=== PATIENT | female | born 1955 | race Caucasian/White ===

== ENCOUNTER → 2019-01-04 | Outpatient (CLI) | payer BC | LOC: LABWHC1 14:11 | PROVIDERS: ATTEND Anesthesiology | DX: Z01.818 Encounter for other preprocedural examination (principal) | CPT/HCPCS: 36415; 93005 ==

== ENCOUNTER → 2019-01-14 | Outpatient (CLI) | payer BC ==
--- NOTE | 2019-01-14 14:26 | CT ---
EXAMINATION TYPE: CT abdomen pelvis wo con DATE OF EXAM: 01/14/2019 COMPARISON: None INDICATION: Abdominal and pelvic pain DLP: 1075.5 mGycm, Automated exposure control for dose reduction was used. CONTRAST: 0 mL of Isovue 300. Study performed without Oral Contrast TECHNIQUE: Axial images were obtained from above the diaphragm to the pubic rami in the axial plane a t 5 mm thick sections. Reconstructed images are reviewed on the computer in the coronal plane. FINDINGS: Limited CT sections are obtained the lung bases. The lung bases are clear. CT ABDOMEN: Liver: Normal, curvilinear collection which appears hyperintense in relation to the liver adjacent to the posterior right lobe liver may be the gallbladder. Spleen: Normal Pancreas: Mild atrophy Adrenal glands: The adrenal glands are normal. Gallbladder: There appears to be the gallbladder is hyperdense. Calcium and contrast could be conside red within the gallbladder. This could be related to biliary stasis.. Kidneys: No masses are evident. No hydronephrosis is present. No cysts are present. No renal stone s are identified. Aorta: Vascular calcification is within the aorta. Inferior vena cava: Normal. CT PELVIS: Loops of bowel within the abdomen and pelvis are normal. There are loops of bowel which are incom pletely distended or lack oral contrast limiting their evaluation. Appendix: Not identified. No suspicious tubular structures or inflammatory changes are identified. Urinary bladder: Decompressed with limited evaluation. Genitourinary structures: Uterus and ovaries are not identified. Osseous structures: No suspicious lytic or sclerotic lesions. Degenerative disc changes are present L 5-S1. IMPRESSIONS: 1. Gallbladder appears hyperdense which could be related to biliary sludge or stasis.
== END ==
LOC: RADCTMAIN 11:07
PROVIDERS: ATTEND Internal Medicine
DX: R10.9 Unspecified abdominal pain (principal)
CPT/HCPCS: 74176

== ENCOUNTER → 2019-01-24 | Outpatient (CLI) | payer BC ==
--- NOTE | 2019-01-24 16:30 | US ---
EXAMINATION TYPE: US abdomen complete DATE OF EXAM: 01/24/2019 COMPARISON: CT 11/13/2019 CLINICAL HISTORY: R10.9 Unspecified abdominal pain. ABD pain, more on right side, recent abnormal CT EXAM MEASUREMENTS: Liver Length: 12.6 cm Gallbladder Wall: 0.2 cm CBD: 0.4 cm Spleen: 12.1 cm Right Kidney: 8.9 x 3.8 x 3.9 cm Left Kidney: 9.9 x 4.6 x 4.1 cm Pancreas: Hyperechoic, tail obscured by overlying bowel gas Liver: Hyperechoic, solid lesion right lobe anterior to right kidney= 5.3 x 4.2 x 5.2 cm Gallbladder: Lumen filled with gallstones vs. sludge/ wall not thickened Evidence for sonographic Garber's sign: Yes CBD: wnl Spleen: wnl Right Kidney: Small in size, cortical thinning Left Kidney: wnl Upper IVC: wnl Abd Aorta: Proximal and distal portions appeared wnl, mid portion gassed out IMPRESSION: 1. Irregular hyperdense mass area within the right lobe liver not identified [facility] the [facility] with contrast or MRI with contrast to evaluate suspicious mass by ultrasound with in the liver. 2. Multiple small gallstones within the gallbladder.
== END ==
LOC: RADUSWWP 08:51
PROVIDERS: ATTEND Surgery
DX: K80.20 Calculus of gallbladder without cholecystitis without obstruction (principal); R16.0 Hepatomegaly, not elsewhere classified
CPT/HCPCS: 76700

== ENCOUNTER 2019-09-12 16:42 | Inpatient (IN) | payer BC, MEDICARE ==
[2019-09-12] MEDS ORDERED: SODIUM CHLORIDE 0.9% 1,000 ML IV STA (17:20)
--- NOTE | 2019-09-12 17:34 | ED ---
URI HPI - General Chief Complaint: Upper Respiratory Infection Stated Complaint: sameer, coughing Time Seen by Provider: 09/12/19 17:19 Source: patient, RN notes reviewed, old records reviewed Mode of arrival: ambulatory Limitations: no limitations - History of Present Illness Initial Comments: This is a 64-year-old female the ER today. This patient resents today for evaluation regards to cough congestion fever chills not feeling well. Patient is history of anxiety DVT and multiple surgeries no recent travel history no known sick contacts. In that denies a documented fever. No pain MD Complaint: fever, cough, sore throat, nasal congestion -: days(s) Severity: mild Severity scale (1-10): 3 Consistency: intermittent Improves With: nothing Worsens With: nothing Associated Symptoms: chills, myalgias, cough, shortness of breath, nausea Treatments Prior to Arrival: none - Related Data Home Medications Medication Instructions Recorded Confirmed ALPRAZolam [Xanax] 1 mg PO DAILY 09/25/17 09/12/19 Estradiol [Estrace] 0.5 mg PO DAILY 09/25/17 09/12/19 Metoprolol Succinate (ER) [Toprol 25 mg PO DAILY 09/25/17 09/12/19 Xl] Cyanocobalamin (Vitamin B-12) 1,000 mcg PO DAILY 09/12/19 09/12/19 [Vitamin B-12] Sertraline HCl [Zoloft] 100 mg PO DAILY 09/12/19 09/12/19 Allergies Allergy/AdvReac Type Severity Reaction Status Date / Time No Known Allergies Allergy Verified 09/12/19 17:22 Review of Systems ROS Statement: Those systems with pertinent positive or pertinent negative responses have been documented in the HPI. ROS Other: All systems not noted in ROS Statement are negative. Past Medical History Past Medical History: Deep Vein Thrombosis (DVT) Additional Past Medical History / Comment(s): pvd anxiety/ panic attacks ,shingles , thin skin,pernicus anemia, History of Any Multi-Drug Resistant Organisms: MRSA Date of last positivie culture/infection: 2000 MDRO Source:: wound Past Surgical History: Appendectomy, Bariatric Surgery, Cholecystectomy, Hysterectomy Additional Past Surgical History / Comment(s): fem/pop bypass/stents lulu, gastric bypass in 2000, lt shoulder sx, rt knee arthrocopy,lt breast biopsy-neg, colonoscopy-neg Past Anesthesia/Blood Transfusion Reactions: No Reported Reaction Past Psychological History: Anxiety Smoking Status: Former smoker Past Alcohol Use History: Rare Past Drug Use History: None Reported - Past Family History Father Family Medical History: CVA/TIA Additional Family Medical History / Comment(s): STROKE AT AGE 50 Mother Family Medical History: No Reported History General Exam Limitations: no limitations General appearance: alert, in no apparent distress Head exam: Present: atraumatic, normocephalic, normal inspection Eye exam: Present: normal appearance, EOMI. Absent: scleral icterus, conjunctival injection, periorbital swelling ENT exam: Present: normal exam, mucous membranes moist Neck exam: Present: normal inspection. Absent: tenderness, meningismus, lymphadenopathy Respiratory exam: Present: normal lung sounds bilaterally. Absent: respiratory distress, wheezes, rales, rhonchi, stridor Cardiovascular Exam: Present: regular rate, normal rhythm, normal heart sounds. Absent: systolic murmur, diastolic murmur, rubs, gallop, clicks GI/Abdominal exam: Present: soft, normal bowel sounds. Absent: distended, tenderness, guarding, rebound, rigid Extremities exam: Present: normal inspection, full ROM, normal capillary refill. Absent: tenderness, pedal edema, joint swelling, calf tenderness Back exam: Present: normal inspection Neurological exam: Present: alert, oriented X3, CN II-XII intact Psychiatric exam: Present: normal affect, normal mood Skin exam: Present: warm, dry, intact, normal color. Absent: rash Course Vital Signs 09/12/19 09/12/19 09/12/19 16:47 18:00 18:30 Temperature 97.5 F L Pulse Rate 83 71 64 Respiratory 18 17 27 H Rate Blood Pressure 148/81 186/100 192/144 O2 Sat by Pulse 97 Oximetry Medical Decision Making - Medical Decision Making 64 female the ER for evaluation presents for evaluation of weakness chills and cough difficulty catching her breath. Patient is positive pneumonia, will admit for IV antibiotics - Lab Data Result diagrams: 09/12/19 17:40 09/12/19 17:40 Lab Results 09/12/19 09/12/19 09/12/19 Range/Units 17:40 17:40 17:40 WBC 4.3 (3.8-10.6) k/uL RBC 4.37 (3.80-5.40) m/uL Hgb 11.2 L (11.4-16.0) gm/dL Hct 36.1 (34.0-46.0) % MCV 82.6 (80.0-100.0) fL MCH 25.7 (25.0-35.0) pg MCHC 31.1 (31.0-37.0) g/dL RDW 15.7 H (11.5-15.5) % Plt Count 175 (150-450) k/uL Neutrophils % 71 % Lymphocytes % 19 % Monocytes % 6 % Eosinophils % 2 % Basophils % 0 % Neutrophils # 3.1 (1.3-7.7) k/uL Lymphocytes # 0.8 L (1.0-4.8) k/uL Monocytes # 0.2 (0-1.0) k/uL Eosinophils # 0.1 (0-0.7) k/uL Basophils # 0.0 (0-0.2) k/uL Hypochromasia Slight PT (9.0-12.0) sec INR (<1.2) APTT (22.0-30.0) sec Sodium 137 (137-145) mmol/L Potassium 4.2 (3.5-5.1) mmol/L Chloride 103 (98-107) mmol/L Carbon Dioxide 24 (22-30) mmol/L Anion Gap 10 mmol/L BUN 16 (7-17) mg/dL Creatinine 1.03 (0.52-1.04) mg/dL Est GFR (CKD-EPI)AfAm 66 (>60 ml/min/1.73 sqM) Est GFR (CKD-EPI)NonAf 57 (>60 ml/min/1.73 sqM) Glucose 111 H (74-99) mg/dL Calcium 9.0 (8.4-10.2) mg/dL Magnesium 2.1 (1.6-2.3) mg/dL Total Bilirubin 0.7 (0.2-1.3) mg/dL AST 34 (14-36) U/L ALT 22 (9-52) U/L Alkaline Phosphatase 106 (38-126) U/L Creatine Kinase 36 (30-135) U/L Troponin I (0.000-0.034) ng/mL NT-Pro-B Natriuret Pep 548 pg/mL Total Protein 7.2 (6.3-8.2) g/dL Albumin 4.0 (3.5-5.0) g/dL Urine Color Urine Appearance (Clear) Urine pH (5.0-8.0) Ur Specific [place] (1.001-1.035) Urine Protein (Negative) Urine Glucose (UA) (Negative) Urine Ketones (Negative) Urine Blood (Negative) Urine Nitrite (Negative) Urine Bilirubin (Negative) Urine Urobilinogen (<2.0) mg/dL Ur Leukocyte Esterase (Negative) Urine WBC (0-5) /hpf Ur Squamous Epith Cells (0-4) /hpf Urine Bacteria (None) /hpf Hyaline Casts (0-2) /lpf Urine Mucus (None) /hpf Influenza Type A RNA (Not Detectd) Influenza Type B (PCR) (Not Detectd) 09/12/19 09/12/19 09/12/19 Range/Units 17:40 17:40 17:40 WBC (3.8-10.6) k/uL RBC (3.80-5.40) m/uL Hgb (11.4-16.0) gm/dL Hct (34.0-46.0) % MCV (80.0-100.0) fL MCH (25.0-35.0) pg MCHC (31.0-37.0) g/dL RDW (11.5-15.5) % Plt Count (150-450) k/uL Neutrophils % % Lymphocytes % % Monocytes % % Eosinophils % % Basophils % % Neutrophils # (1.3-7.7) k/uL Lymphocytes # (1.0-4.8) k/uL Monocytes # (0-1.0) k/uL Eosinophils # (0-0.7) k/uL Basophils # (0-0.2) k/uL Hypochromasia PT 9.3 (9.0-12.0) sec INR 0.8 (<1.2) APTT 23.8 (22.0-30.0) sec Sodium (137-145) mmol/L Potassium (3.5-5.1) mmol/L Chloride (98-107) mmol/L Carbon Dioxide (22-30) mmol/L Anion Gap mmol/L BUN (7-17) mg/dL Creatinine (0.52-1.04) mg/dL Est GFR (CKD-EPI)AfAm (>60 ml/min/1.73 sqM) Est GFR (CKD-EPI)NonAf (>60 ml/min/1.73 sqM) Glucose (74-99) mg/dL Calcium (8.4-10.2) mg/dL Magnesium (1.6-2.3) mg/dL Total Bilirubin (0.2-1.3) mg/dL AST (14-36) U/L ALT (9-52) U/L Alkaline Phosphatase (38-126) U/L Creatine Kinase (30-135) U/L Troponin I <0.012 (0.000-0.034) ng/mL NT-Pro-B Natriuret Pep pg/mL Total Protein (6.3-8.2) g/dL Albumin (3.5-5.0) g/dL Urine Color Yellow Urine Appearance Cloudy H (Clear) Urine pH 5.5 (5.0-8.0) Ur Specific [place] 1.028 (1.001-1.035) Urine Protein 1+ H (Negative) Urine Glucose (UA) Negative (Negative) Urine Ketones 1+ H (Negative) Urine Blood Negative (Negative) Urine Nitrite Negative (Negative) Urine Bilirubin Negative (Negative) Urine Urobilinogen 3.0 (<2.0) mg/dL Ur Leukocyte Esterase Trace H (Negative) Urine WBC 1 (0-5) /hpf Ur Squamous Epith Cells 27 H (0-4) /hpf Urine Bacteria Few H (None) /hpf Hyaline Casts 10 H (0-2) /lpf Urine Mucus Many H (None) /hpf Influenza Type A RNA (Not Detectd) Influenza Type B (PCR) (Not Detectd) 09/12/19 Range/Units 17:40 WBC (3.8-10.6) k/uL RBC (3.80-5.40) m/uL Hgb (11.4-16.0) gm/dL Hct (34.0-46.0) % MCV (80.0-100.0) fL MCH (25.0-35.0) pg MCHC (31.0-37.0) g/dL RDW (11.5-15.5) % Plt Count (150-450) k/uL Neutrophils % % Lymphocytes % % Monocytes % % Eosinophils % % Basophils % % Neutrophils # (1.3-7.7) k/uL Lymphocytes # (1.0-4.8) k/uL Monocytes # (0-1.0) k/uL Eosinophils # (0-0.7) k/uL Basophils # (0-0.2) k/uL Hypochromasia PT (9.0-12.0) sec INR (<1.2) APTT (22.0-30.0) sec Sodium (137-145) mmol/L Potassium (3.5-5.1) mmol/L Chloride (98-107) mmol/L Carbon Dioxide (22-30) mmol/L Anion Gap mmol/L BUN (7-17) mg/dL Creatinine (0.52-1.04) mg/dL Est GFR (CKD-EPI)AfAm (>60 ml/min/1.73 sqM) Est GFR (CKD-EPI)NonAf (>60 ml/min/1.73 sqM) Glucose (74-99) mg/dL Calcium (8.4-10.2) mg/dL Magnesium (1.6-2.3) mg/dL Total Bilirubin (0.2-1.3) mg/dL AST (14-36) U/L ALT (9-52) U/L Alkaline Phosphatase (38-126) U/L Creatine Kinase (30-135) U/L Troponin I (0.000-0.034) ng/mL NT-Pro-B Natriuret Pep pg/mL Total Protein (6.3-8.2) g/dL Albumin (3.5-5.0) g/dL Urine Color Urine Appearance (Clear) Urine pH (5.0-8.0) Ur Specific [place] (1.001-1.035) Urine Protein (Negative) Urine Glucose (UA) (Negative) Urine Ketones (Negative) Urine Blood (Negative) Urine Nitrite (Negative) Urine Bilirubin (Negative) Urine Urobilinogen (<2.0) mg/dL Ur Leukocyte Esterase (Negative) Urine WBC (0-5) /hpf Ur Squamous Epith Cells (0-4) /hpf Urine Bacteria (None) /hpf Hyaline Casts (0-2) /lpf Urine Mucus (None) /hpf Influenza Type A RNA Not Detected (Not Detectd) Influenza Type B (PCR) Not Detected (Not Detectd) - EKG Data -: EKG Interpreted by Me (EKG shows sinus rhythm rate of 76, UT 142, QRS 66, QTc 452) - Radiology Data Radiology results: report reviewed (Chest x-rays positive for right upper lobe pneumonia), image reviewed Disposition Clinical Impression: Community acquired pneumonia Disposition: ADMITTED IP TO THIS [facility] Condition: Good Is patient prescribed a controlled substance at d/c from ED?: No Referrals: Parmjit Roblero MD [Primary Care Provider] - 1-2 days
[2019-09-12 17:59] LABS: Basophils % (A) 0 %; Eosinophils # (A) 0.1 k/uL (0-0.7); Eosinophils % (A) 2 %; HCT 36.1 % (34.0-46.0); HGB 11.2 gm/dL (11.4-16.0); Hypochromasia Slight; Lymphocytes # (A) 0.8 k/uL (1.0-4.8); Lymphocytes % (A) 19 %; MCH 25.7 pg (25.0-35.0); MCHC 31.1 g/dL (31.0-37.0); MCV 82.6 fL (80.0-100.0); Mean Platelet Volume 7.4; Monocytes # (A) 0.2 k/uL (0-1.0); Monocytes % (A) 6 %; Neutrophils # (A) 3.1 k/uL (1.3-7.7); Neutrophils % (A) 71 %; Platelet Count 175 k/uL (150-450); RBC 4.37 m/uL (3.80-5.40); RDW 15.7 % (11.5-15.5); WBC 4.3 k/uL (3.8-10.6)
--- NOTE | 2019-09-12 18:03 | XR ---
EXAMINATION TYPE: XR chest 2V DATE OF EXAM: 09/12/2019 COMPARISON: 12/25/2014 HISTORY: Chest pain TECHNIQUE: Frontal and lateral views of the chest are obtained. FINDINGS: There is some patchy airspace infiltrate anterior segment right upper lobe. The other lung valadez are clear. Heart size is normal. There are chest leads. Bony thorax is intact. IMPRESSION: Right upper lobe pneumonia is new compared to old exam.
[2019-09-12 18:05] LABS: Appearance,Urine Cloudy (Clear); Bacteria,Urine Few /hpf; Bilirubin,Urine Negative (Negative); Blood,Urine Negative (Negative); Color,Urine Yellow; Glucose,Urine (UA) Negative (Negative); Hyaline Casts,Urine 10 /lpf (0-2); Ketones,Urine 1+ (Negative); Leukocyte Esterase,Urine Trace (Negative); Mucus,Urine Many /hpf; Nitrite,Urine Negative (Negative); PH, Urine 5.5 (5.0-8.0); Protein,Urine 1+ (Negative); Specific Gravity,Urine 1.028 (1.001-1.035); Squamous Epithelial Cell,Urine 27 /hpf (0-4)
[2019-09-12 18:09] LABS: Total Bilirubin 0.7 mg/dL (0.2-1.3); Total Protein 7.2 g/dL (6.3-8.2)
[2019-09-12 18:10] LABS: Magnesium 2.1 mg/dL (1.6-2.3); Potassium 4.2 mmol/L (3.5-5.1)
[2019-09-12 18:15] LABS: INR 0.8 (<1.2); Partial Thromboplastin Time 23.8 sec (22.0-30.0); Prothrombin Time 9.3 sec (9.0-12.0)
[2019-09-12] MEDS ORDERED: AZITHROMYCIN 500 MG in SODIUM CHLORIDE 0.9% 250 ML IVPB STA (18:59)
[2019-09-12] MEDS ORDERED: IPRATROPIUM-ALBUTEROL 3 ML NEB INHALATION PRN (18:59)
[2019-09-12] MEDS ORDERED: PNEUMONIA PROTOCOL UTILIZED 1 EACH MISC PO PRN (18:59)
[2019-09-12] MEDS: SODIUM CHLORIDE 0.9% 1,000 ML IV SCH (19:16)
[2019-09-12] MEDS ORDERED: LORazepam 2 MG/ML INJ IV STA (19:21)
[2019-09-12] MEDS ORDERED: LABETALOL 5 MG/ML VIAL MDV IVP STA (19:21)
--- NOTE | 2019-09-12 20:08 | CT ---
EXAMINATION TYPE: CT angio chest DATE OF EXAM: 09/12/2019 8:00 PM COMPARISON: None HISTORY: HEART PALPATATIONS CT DLP: 416.8 mGycm Automated exposure control for dose reduction was used. CONTRAST: CTA scan of the thorax is performed with IV Contrast, patient injected with 80 mL of Isovue 370, pulm onary embolism protocol. There are 3-D post processed images.. FINDINGS: There is some patchy reticular and airspace infiltrate in the right upper lobe. The other lung valadez are clear. There is no pleural effusion. Heart size is normal. There is no pericardial effusion. The re is a 1.5 cm pretracheal lymph node.. There are no hilar masses. Thoracic aorta shows no sign of aneurysm or dissection. Thoracic aorta shows mild atheromatous change . There is normal contrast opacification of the pulmonary arteries. There are no filling defects. There is spurring in the thoracic spine. Sternum is intact. The ribs are intact. IMPRESSION: NO EVIDENCE OF PULMONARY EMBOLISM. PATCHY RIGHT UPPER LOBE PNEUMONIA.
[2019-09-13] MEDS: SODIUM CHLORIDE 0.9% 1,000 ML IV SCH ×2 (06:14→14:33)
[2019-09-13] MEDS ORDERED: ACETAMINOPHEN TAB 325 MG TAB PO PRN (07:53)
[2019-09-13] MEDS: SERTRALINE 100 MG TAB PO SCH (08:28)
[2019-09-13] MEDS: ESTRADIOL 0.5 MG TAB PO SCH (08:29)
[2019-09-13] MEDS: METOPROLOL SUCCINATE (ER) 25 MG TAB.ER.24H PO SCH (08:29)
[2019-09-13] MEDS ORDERED: IBUPROFEN 600 MG TAB PO SCH (09:00)
[2019-09-13] MEDS ORDERED: AZITHROMYCIN 500 MG TAB PO SCH (14:00)
--- NOTE | 2019-09-13 14:24 | XR ---
EXAMINATION TYPE: XR chest 2V DATE OF EXAM: 09/13/2019 COMPARISON: 09/12/2019 TECHNIQUE: PA and lateral views submitted. HISTORY: Chest pain, cough FINDINGS: There is some patchy airspace infiltrate anterior segment right upper lobe. The other lung valadez are clear. Heart size is normal. There are chest leads. Bony thorax is intact. Heart size stable. Mild degenerative change spine. Surgical clips in the abdomen. IMPRESSION: 1. Patchy infiltrate right upper lobe correlate for pneumonia. Underlying neoplasm not excluded. Foll ow to resolution.
[2019-09-13] MEDS ORDERED: IBUPROFEN 600 MG TAB PO PRN (14:28)
[2019-09-13] MEDS ORDERED: VANCOMYCIN IV PER PHARMACY 1 EACH MISC MISCELLANE PRN (14:55)
[2019-09-13] MEDS ORDERED: VANCOMYCIN 1,750 MG in SODIUM CHLORIDE 0.9% 500 ML 500 ML IVPB ONE (16:00)
[2019-09-13] MEDS: ALPRAZolam 1 MG TAB PO SCH (21:26)
--- NOTE | 2019-09-13 22:53 | P.CONS ---
History of Present Illness - Reason for Consult Consult date: 09/13/19 bacteremia Requesting physician: Uriel Stein - Chief Complaint shortness of breath and cough few days - History of Present Illness patient is 64-year-old female presenting to the ER at [facility] chief complaints of his and shortness of breath and cough patient's symptom has been going on for a few days before presenting to the hospital patient denies having any urinary symptoms patient did have a cough which has been moderate density with the patient's sputum production no hemoptysis and no chest pain she also complained of increasing shortness of breath with minimal exertion and some interest no swelling in the legs. Has some chills and low-grade fever with these symptoms the patient was evaluated by the ER physician wanted out for the patient has been afebrile patient did have a chest x-ray followed by CT angiogram which was negative for PE however shows patchy right upper lobe infiltrate patient wanted to see if use of Rocephin in the area subsequently was started on Zithromax patient did have blood cultures obtained which were coming positive gram-positive cocci that prompted this infection disease consultation Review of Systems Positive point has been mentioned in the HPI rest of the systems are negative Past Medical History Past Medical History: Deep Vein Thrombosis (DVT), Myocardial Infarction (non Q- wave) Additional Past Medical History / Comment(s): pvd anxiety/ panic attacks ,shingles , thin skin,pernicus anemia, Last Myocardial Infarction Date:: 10/2014 History of Any Multi-Drug Resistant Organisms: MRSA Year Discovered:: 2000 MDRO Source:: wound Past Surgical History: Appendectomy, Bariatric Surgery, Cholecystectomy, Hysterectomy Additional Past Surgical History / Comment(s): fem/pop bypass/stents lulu, gastric bypass in 2000, lt shoulder sx, rt knee arthrocopy,lt breast biopsy-neg, colonoscopy-neg Past Anesthesia/Blood Transfusion Reactions: No Reported Reaction Past Psychological History: Anxiety Smoking Status: Former smoker Past Alcohol Use History: Rare Additional Past Alcohol Use History / Comment(s): started smopking at age 19, 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, 1 SHOT WHISKEY PER DAY Past Drug Use History: None Reported - Past Family History Father Family Medical History: CVA/TIA Additional Family Medical History / Comment(s): STROKE AT AGE 50 Mother Family Medical History: No Reported History Medications and Allergies Home Medications Medication Instructions Recorded Confirmed Type ALPRAZolam [Xanax] 1 mg PO HS 09/25/17 09/12/19 History Estradiol [Estrace] 0.5 mg PO DAILY 09/25/17 09/12/19 History Metoprolol Succinate (ER) [Toprol 25 mg PO DAILY 09/25/17 09/12/19 History Xl] Cyanocobalamin (Vitamin B-12) 1,000 mcg SQ Q7DAYS 09/12/19 09/12/19 History [Vitamin B-12] Sertraline HCl [Zoloft] 100 mg PO DAILY 09/12/19 09/12/19 History Allergies Allergy/AdvReac Type Severity Reaction Status Date / Time No Known Allergies Allergy Verified 09/12/19 17:22 Physical Exam Vitals: Vital Signs Temp Pulse Pulse Resp BP BP Pulse Ox 09/13/19 12:55 96.6 F L 92 17 114/64 92 L 09/13/19 05:00 97.3 F L 61 18 146/73 96 09/13/19 00:00 18 09/12/19 21:00 98.2 F 64 18 131/73 96 09/12/19 19:38 68 20 131/86 98 09/12/19 19:00 67 14 173/103 09/12/19 18:30 64 27 H 192/144 09/12/19 18:00 71 17 186/100 Intake and Output 09/13/19 09/13/19 09/13/19 06:59 14:59 22:59 Intake Total 750 360 Balance 750 360 Intake: Oral 750 360 Other: Voiding Method Toilet Toilet # Voids 2 3 GENERAL DESCRIPTION: an elderly female lying in bed, no distress. No tachypnea or accessory muscle of respiration use. HEENT: Shows Pallor , no scleral icterus. Oral mucous membrane is dry. No phary ngeal erythema or thrush NECK: Trachea central, no thyromegaly. LUNGS: Unlabored breathing. decreased breath sounds at the base No wheeze or crackle. HEART: S1, S2, regular rate and rhythm. No loud murmur ABDOMEN: Soft, no tenderness , guarding or rigidity, no organomegaly EXTREMITIES: No edema of feet. SKIN: No rash, no masses palpable. NEUROLOGICAL: The patient is awake, alert, oriented x3, mood and affect normal. Results CBC & Chem 7: 09/12/19 17:40 09/12/19 17:40 Labs: Abnormal Lab Results - Last 24 Hours (Table) 09/12/19 09/12/19 09/12/19 Range/Units 17:40 17:40 17:40 Hgb 11.2 L (11.4-16.0) gm/dL RDW 15.7 H (11.5-15.5) % Lymphocytes # 0.8 L (1.0-4.8) k/uL Glucose 111 H (74-99) mg/dL Urine Appearance Cloudy H (Clear) Urine Protein 1+ H (Negative) Urine Ketones 1+ H (Negative) Ur Leukocyte Esterase Trace H (Negative) Ur Squamous Epith Cells 27 H (0-4) /hpf Urine Bacteria Few H (None) /hpf Hyaline Casts 10 H (0-2) /lpf Urine Mucus Many H (None) /hpf Microbiology - Last 24 Hours (Table) 09/12/19 17:40 Blood Culture Gram Stain - Preliminary Blood 09/12/19 17:40 Blood Culture - Final Blood Assessment and Plan Assessment: 1-patient with a gram-positive bacteremia and this patient presented to hospital with increasing shortness of breath and a cough in this patient who did have a CT angiogram that shows right upper lobe inflated likely the source of his bacteremia with concern for possible strep pneumo and likely community-acquired pathogen rather than MRSA though not entirely excluded (1) Bacteremia Current Visit: Yes Status: Acute Code(s): R78.81 - BACTEREMIA SNOMED Code(s): 6685184 (2) Community acquired pneumonia Current Visit: Yes Status: Acute Code(s): J18.9 - PNEUMONIA, UNSPECIFIED ORGANISM SNOMED Code(s): 463716704 Plan: 1-blood cultures 1 to document clearance of bacteremia 2-we'll obtain sputum for Gram stain and culture 3-Vancomycin pharmacy to dose target trough of 15 while watching his kidney function and Vanco trough closely 4-Rocephin 2 g daily and discontinue Zithromax We will follow on clinical condition and cultures to further adjust medication if needed Thank you for this consultation will follow this patient with you Time with Patient: Greater than 30
[2019-09-14] MEDS ORDERED: VANCOMYCIN 1,500 MG in SODIUM CHLORIDE 0.9% 250 ML IVPB SCH (06:00)
[2019-09-14] MEDS: METOPROLOL SUCCINATE (ER) 25 MG TAB.ER.24H PO SCH (08:30)
[2019-09-14] MEDS: SODIUM CHLORIDE 0.9% 1,000 ML IV SCH ×3 (08:30→21:33)
[2019-09-14] MEDS: SERTRALINE 100 MG TAB PO SCH (08:30)
[2019-09-14] MEDS: ESTRADIOL 0.5 MG TAB PO SCH (08:31)
[2019-09-14] MEDS ORDERED: CEFDINIR 300 MG CAP PO SCH (09:00)
--- NOTE | 2019-09-14 10:14 | P.HPIM ---
History of Present Illness H&P Date: 09/13/19 Chief Complaint: Shortness of breath Patient is a 64-year-old female with a known history of cerebrovascular disease status post fem-pop bypass and stent placement bilaterally in 2000, history of bariatric surgery, anxiety/panic attacks and previous history of smoking came to ER with the complaints of cough congestion and fever and not feeling very well. Patient also says that she has not been feeling very well for the past 4 months since after her gallbladder surgery. Patient has been having multiple diarrheas and has been having diarrhea immediately after she ate something. No complaints of abdominal pain. No nausea no vomiting. Otherwise denied any complaints of headache or dizziness. No commerce of chest pain or shortness of breath. No sick contacts at home. CTA chest showed no evidence of pulmonary embolism. Patchy right upper lobe pneumonia noted. Patient was also found to have gram-positive cocci in the blood cultures. Repeat cultures was ordered. Review of Systems Constitutional: Subjective fevers and chills and generalized weakness. Abdomen: Patient denied nausea vomiting and abdominal pain. Patient does have chronic diarrhea Cardiovascular: Patient denies any chest pain or short of breath no palpitations. Respiratory: patient denied any cough is from production. No shortness of breath Neurologic: Patient denied any numbness or tingling headache. Musculoskeletal: Patient denies any complaints of joint swelling or deformity. Skin: Negative Psychiatric: Negative Endocrine: No heat or cold intolerance. No recent weight gain. Genitourinary: No dysuria or hematuria. All other 14 point ROS negative except the above Past Medical History Past Medical History: Deep Vein Thrombosis (DVT), Myocardial Infarction (non Q- wave) Additional Past Medical History / Comment(s): pvd anxiety/ panic attacks ,shingles , thin skin,pernicus anemia, Last Myocardial Infarction Date:: 10/2014 History of Any Multi-Drug Resistant Organisms: MRSA Date of last positivie culture/infection: 2000 MDRO Source:: wound Past Surgical History: Appendectomy, Bariatric Surgery, Cholecystectomy, Hysterectomy Additional Past Surgical History / Comment(s): fem/pop bypass/stents lulu, gastri c bypass in 2000, lt shoulder sx, rt knee arthrocopy,lt breast biopsy-neg, colonoscopy-neg Past Anesthesia/Blood Transfusion Reactions: No Reported Reaction Past Psychological History: Anxiety Smoking Status: Former smoker Past Alcohol Use History: Rare Additional Past Alcohol Use History / Comment(s): started smopking at age 19, 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, 1 SHOT WHISKEY PER DAY Past Drug Use History: None Reported - Past Family History Father Family Medical History: CVA/TIA Additional Family Medical History / Comment(s): STROKE AT AGE 50 Mother Family Medical History: No Reported History Medications and Allergies Home Medications Medication Instructions Recorded Confirmed Type ALPRAZolam [Xanax] 1 mg PO HS 09/25/17 09/12/19 History Estradiol [Estrace] 0.5 mg PO DAILY 09/25/17 09/12/19 History Metoprolol Succinate (ER) [Toprol 25 mg PO DAILY 09/25/17 09/12/19 History Xl] Cyanocobalamin (Vitamin B-12) 1,000 mcg SQ Q7DAYS 09/12/19 09/12/19 History [Vitamin B-12] Sertraline HCl [Zoloft] 100 mg PO DAILY 09/12/19 09/12/19 History Allergies Allergy/AdvReac Type Severity Reaction Status Date / Time No Known Allergies Allergy Verified 09/12/19 17:22 Physical Exam Vitals: Vital Signs Temp Pulse Pulse Resp BP BP Pulse Ox 09/13/19 05:00 97.3 F L 61 18 146/73 96 09/13/19 00:00 18 09/12/19 21:00 98.2 F 64 18 131/73 96 09/12/19 19:38 68 20 131/86 98 09/12/19 19:00 67 14 173/103 09/12/19 18:30 64 27 H 192/144 09/12/19 18:00 71 17 186/100 09/12/19 16:47 97.5 F L 83 18 148/81 97 Intake and Output 09/12/19 09/13/19 09/13/19 22:59 06:59 14:59 Intake Total 500 750 360 Balance 500 750 360 Intake: Oral 500 750 360 Other: # Voids 1 2 Weight 90.718 kg PHYSICAL EXAMINATION: Patient is lying in the bed comfortably, no acute distress, awake alert and oriented.. HEENT: Normocephalic. Neck is supple. Pupils reactive. Nostrils clear. Oral cavity is moist. Ears reveal no drainage. Neck reveals no JVD, carotid bruits, or thyromegaly. CHEST EXAMINATION: Trachea is central. Symmetrical expansion. Lung valadez clear to auscultation and percussion. CARDIAC: Normal S1, S2 with no gallops. No murmurs ABDOMEN: Soft. Bowel sounds normal. No organomegaly. No abdominal bruits. Extremities: reveal no edema. No clubbing or cyanosis Neurologically awake, alert, oriented x3 with well-coordinated movements. No fo santiago deficits noted Skin: No rash or skin lesions. Psychiatric: Coperative. Nonsuicidal Musculoskeletal: No joint swelling or deformity. Normal range of motion. Results CBC & Chem 7: 09/12/19 17:40 09/14/19 07:47 Labs: Abnormal Lab Results - Last 24 Hours (Table) 09/12/19 09/12/19 09/12/19 Range/Units 17:40 17:40 17:40 Hgb 11.2 L (11.4-16.0) gm/dL RDW 15.7 H (11.5-15.5) % Lymphocytes # 0.8 L (1.0-4.8) k/uL Glucose 111 H (74-99) mg/dL Urine Appearance Cloudy H (Clear) Urine Protein 1+ H (Negative) Urine Ketones 1+ H (Negative) Ur Leukocyte Esterase Trace H (Negative) Ur Squamous Epith Cells 27 H (0-4) /hpf Urine Bacteria Few H (None) /hpf Hyaline Casts 10 H (0-2) /lpf Urine Mucus Many H (None) /hpf Thrombosis Risk Factor Assmnt - DVT/VTE Prophylaxis DVT/VTE Prophylaxis: Pharmacologic Prophylaxis ordered - Choose All That Apply Any of the Below Risk Factors Present?: Yes Each Factor Represents 1 point: Obesity (BMI >25), Serious lung disease incl. pneumonia (< 1month) Other Risk Factors: Yes Each Risk Factor Represents 2 Points: Age 61-74 years Each Risk Factor Represents 3 Points: History of DVT/PE Other congenital or acquired thrombophilia - If yes, enter type in comment: No Thrombosis Risk Factor Assessment Total Risk Factor Score: 7 Thrombosis Risk Factor Assessment Level: High Risk Assessment and Plan Assessment: Acute right upper lobe pneumonia Gram-positive cocci in the blood cultures. Follow-up repeat cultures and final culture report Anxiety and panic attacks Recent history of cholecystectomy 4 months ago Chronic diarrhea/short bowel Previous history of smoking Peripheral vascular disease with history of fem-pop bypass/stent placement bilaterally in 2000 Osteoarthritis DVT prophylaxis next and adnexa History of DVT History of non-Q-wave SC plan: Patient will be continued on gentle hydration. Antibiotics in the form of ceftriaxone and azithromycin. Continue the home medications and follow closely. Follow-up repeat culture reports. Discussed with patient at bedside in detail. Further recommendations based on the clinical course. Time with Patient: Greater than 30
[2019-09-14] MEDS: ALPRAZolam 1 MG TAB PO SCH (21:32)
--- NOTE | 2019-09-14 21:40 | P.PN ---
Subjective Progress Note Date: 09/14/19 Principal diagnosis: Right upper lobe pneumonia Diarrhea Patient is a 64-year-old female with a known history of cerebrovascular disease status post fem-pop bypass and stent placement bilaterally in 2000, history of bariatric surgery, anxiety/panic attacks and previous history of smoking came to ER with the complaints of cough congestion and fever and not feeling very well. Patient also says that she has not been feeling very well for the past 4 months since after her gallbladder surgery. Patient has been having multiple diarrheas and has been having diarrhea immediately after she ate something. No complaints of abdominal pain. No nausea no vomiting. Otherwise denied any complaints of headache or dizziness. No commerce of chest pain or shortness of breath. No sick contacts at home. CTA chest showed no evidence of pulmonary embolism. Patchy right upper lobe pneumonia noted. Patient was also found to have gram-positive cocci in the blood cultures. Repeat cultures was ordered. 09 14 2019 Patient denied any complaints of chest pain or shortness breath. Still having diarrhea. Urine Legionella and stool culture was ordered. ID is following. Continued on antibiotics and follow closely. Anticipate discharge in next 24 hours. Current medications reviewed. Active Medications Acetaminophen (Tylenol Tab) 650 mg PO Q6HR PRN PRN Reason: Fever and/ or Pain Last Admin: 09/14/19 19:06 Dose: 650 mg Documented by: Albuterol/Ipratropium (Duoneb 0.5 Mg-3 Mg/3 Ml Soln) 3 ml INHALATION RT-Q4H PRN PRN Reason: shortness of breath Alprazolam (Xanax) 1 mg PO HS [facility] Last Admin: 09/14/19 21:32 Dose: 1 mg Documented by: Cyanocobalamin (Vitamin B-12) 1,000 mcg SQ Q7DAYS [facility] Estradiol (Estrace) 0.5 mg PO DAILY [facility] Last Admin: 09/14/19 08:31 Dose: 0.5 mg Documented by: Sodium Chloride (Saline 0.9%) 1,000 mls @ 100 mls/hr IV .Q10H [facility] Last Admin: 09/14/19 21:33 Dose: 100 mls/hr Documented by: Ceftriaxone Sodium 2 gm/ (Sodium Chloride) 50 mls @ 100 mls/hr IVPB Q24HR [facility] Last Admin: 09/14/19 12:12 Dose: 100 mls/hr Documented by: Ibuprofen (Motrin) 600 mg PO TID PRN PRN Reason: MODERATE Pain Metoprolol Succinate (Toprol Xl) 25 mg PO DAILY [facility] Last Admin: 09/14/19 08:30 Dose: 25 mg Documented by: Miscellaneous Information (Pneumonia Protocol Utilized) 1 each PO ONCE PRN PRN Reason: Per Protocol Sertraline HCl (Zoloft) 100 mg PO DAILY [facility] Last Admin: 09/14/19 08:30 Dose: 100 mg Documented by: Objective - Vital Signs Vital signs: Vital Signs Temp 98.2 F 09/14/19 15:00 Pulse 64 09/14/19 15:00 Resp 16 09/14/19 15:00 BP 159/69 09/14/19 15:00 Pulse Ox 96 09/14/19 15:00 Intake & Output 09/13/19 09/14/19 09/14/19 18:59 06:59 18:59 Intake Total 600 480 Balance 600 480 Intake: Oral 600 480 Other: Voiding Method Toilet # Voids 3 1 4 # Bowel Movements 1 - Exam PHYSICAL EXAMINATION: Patient is lying in the bed comfortably, no acute distress, awake alert and oriented.. HEENT: Normocephalic. Neck is supple. Pupils reactive. Nostrils clear. Oral cavity is moist. Ears reveal no drainage. Neck reveals no JVD, carotid bruits, or thyromegaly. CHEST EXAMINATION: Trachea is central. Symmetrical expansion. Lung valadez clear to auscultation and percussion. CARDIAC: Normal S1, S2 with no gallops. No murmurs ABDOMEN: Soft. Bowel sounds normal. No organomegaly. No abdominal bruits. Extremities: reveal no edema. No clubbing or cyanosis Neurologically awake, alert, oriented x3 with well-coordinated movements. No focal deficits noted Skin: No rash or skin lesions. Psychiatric: Coperative. Nonsuicidal Musculoskeletal: No joint swelling or deformity. Normal range of motion. - Labs CBC & Chem 7: 09/12/19 17:40 09/14/19 07:47 Labs: Microbiology - Last 24 Hours (Table) 09/13/19 19:40 Stool Culture - Preliminary Stool 09/12/19 17:40 Blood Culture Gram Stain - Preliminary Blood Blood Culture - Preliminary Coagulase Negative Staph Assessment and Plan Assessment: Acute right upper lobe pneumonia Coagulase-negative staph in the blood cultures. Vancomycin has been discontinued Anxiety and panic attacks Recent history of cholecystectomy 4 months ago Chronic diarrhea/short bowel Previous history of smoking Peripheral vascular disease with history of fem-pop bypass/stent placement bilaterally in 2000 Osteoarthritis DVT prophylaxis next and adnexa History of DVT History of non-Q-wave IA plan: Patient will be continued on gentle hydration. Antibiotics in the form of ceftriaxone and azithromycin. Continue the home medications and follow closely. Follow-up repeat culture reports. Discussed with patient at bedside in detail. Further recommendations based on the clinical course. Time with Patient: Greater than 30
--- NOTE | 2019-09-14 22:32 | PN ---
PROGRESS NOTE DATE OF SERVICE: 09/14/2019. REASON FOR FOLLOW UP: 1. Pneumonia. 2. Positive blood culture. 3. Diarrhea. INTERVAL HISTORY: The patient is currently afebrile. The patient has been breathing more comfortably. The patient's cough has decreased in intensity. Denies having any chest pain. Occasional cough. No abdominal pain. Still complaining of diarrhea with no blood or mucus in the stool. PHYSICAL EXAMINATION: Blood pressure is 132/63 with a pulse of 66, temperature 98.3. She is 97% on room air. General description is an elderly female up in the chair in no distress. Respiratory system: Unlabored breathing. Some coarse breath sounds in the left side. No wheeze. Heart S1, S2. Regular rate and rhythm. Abdomen soft, no tenderness. LABS: Blood culture with coagulase negative Staph. Stool culture currently pending. DIAGNOSTIC IMPRESSION/PLAN: 1. Patient admitted to the hospital with fever, shortness of breath and cough with evidence of pneumonia likely community-acquired. Try to obtain a sputum. Currently covered with Rocephin. 2. Patient with a positive blood culture with coagulase-negative staph likely skin contamination. No need for further therapy for the same. 3. Diarrhea. Stool culture is currently pending. MMODL / IJN: [id number] /
[2019-09-15] MEDS: SODIUM CHLORIDE 0.9% 1,000 ML IV SCH ×3 (08:51→21:35)
[2019-09-15] MEDS: ESTRADIOL 0.5 MG TAB PO SCH (08:52)
[2019-09-15] MEDS: SERTRALINE 100 MG TAB PO SCH (08:52)
[2019-09-15] MEDS: METOPROLOL SUCCINATE (ER) 25 MG TAB.ER.24H PO SCH (08:52)
[2019-09-15 10:04] LABS: Calcium 8.7 mg/dL (8.4-10.2); Potassium 4.4 mmol/L (3.5-5.1)
[2019-09-15 10:25] LABS: Basophils % (A) 1 %; Eosinophils # (A) 0.1 k/uL (0-0.7); Eosinophils % (A) 2 %; HCT 32.2 % (34.0-46.0); Hypochromasia Moderate; Lymphocytes # (A) 0.6 k/uL (1.0-4.8); Lymphocytes % (A) 17 %; MCHC 29.7 g/dL (31.0-37.0); MCV 84.3 fL (80.0-100.0); Monocytes # (A) 0.2 k/uL (0-1.0); Monocytes % (A) 4 %; Neutrophils # (A) 2.5 k/uL (1.3-7.7); Neutrophils % (A) 75 %; Platelet Count 145 k/uL (150-450); RBC 3.82 m/uL (3.80-5.40); RDW 15.9 % (11.5-15.5); WBC 3.4 k/uL (3.8-10.6)
[2019-09-15 10:27] LABS: HGB 9.6 gm/dL (11.4-16.0)
[2019-09-15] MEDS: CHOLESTYRAMINE (WITH SUGAR) 4 GM PACKET PO SCH (16:01)
[2019-09-15] MEDS ORDERED: PEG 3350-NA SULF,BICARB,CL/KCL 4,000 ML BOTTLE PO ONE (17:00)
--- NOTE | 2019-09-15 18:55 | PN ---
PROGRESS NOTE DATE OF SERVICE: 09/15/2019. REASON FOR FOLLOWUP: 1. Pneumonia. 2. Diarrhea. INTERVAL HISTORY: The patient is currently afebrile. Patient has been breathing comfortably. The patient cough decreased in intensity, mostly dry in nature. No chest pain. No nausea, vomiting. No abdominal pain. The patient is complaining of diarrhea with multiple loose stools every hour on the hour. PHYSICAL EXAMINATION: On examination, her blood pressure is 183/68 with a pulse of 81, temperature 97.8. She is 97% on room air. General description is an elderly female up in the chair in no distress. Respiratory system: Unlabored breathing, decreased intensity in breath sounds. No wheeze. Heart is S1, S2. Regular rate and rhythm. Extremities: No edema of the feet. Abdomen soft, no tenderness. LABS: Hemoglobin 9.8, white count 3.4, BUN of 12, creatinine 0.96. Blood culture coagulase negative Staph. The stool culture is currently pending. IMPRESSION/PLAN: 1. Patient admitted to the hospital with fever and cough and concern for pneumonia likely community-acquired. Patient currently covered with Rocephin to finish therapy with oral Ceftin. 2. Patient now with significant diarrhea. We will check a stool for C difficile and treat if positive. We will add Questran for symptomatic relief. MMODL / IJN: [id number] /
--- NOTE | 2019-09-15 21:24 | P.PN ---
Subjective Progress Note Date: 09/15/19 Principal diagnosis: Right upper lobe pneumonia Diarrhea Patient is a 64-year-old female with a known history of cerebrovascular disease status post fem-pop bypass and stent placement bilaterally in 2000, history of bariatric surgery, anxiety/panic attacks and previous history of smoking came to ER with the complaints of cough congestion and fever and not feeling very well. Patient also says that she has not been feeling very well for the past 4 months since after her gallbladder surgery. Patient has been having multiple diarrheas and has been having diarrhea immediately after she ate something. No complaints of abdominal pain. No nausea no vomiting. Otherwise denied any complaints of headache or dizziness. No commerce of chest pain or shortness of breath. No sick contacts at home. CTA chest showed no evidence of pulmonary embolism. Patchy right upper lobe pneumonia noted. Patient was also found to have gram-positive cocci in the blood cultures. Repeat cultures was ordered. 09 14 2019 Patient denied any complaints of chest pain or shortness breath. Still having diarrhea. Urine Legionella and stool culture was ordered. ID is following. Continued on antibiotics and follow closely. Anticipate discharge in next 24 hours. 09/15/2019 Patient was initially admitted to the hospital with right upper lobe pneumonia. Patient does not have any fever or chills. No chest pain or shortness of breath. Otherwise patient did have worsening diarrhea since last night. Could be due to antibiotics. Stool studies were ordered. C. diff negative. Added Questran. ID is on board. Urine Legionella antigen is still pending. Patient is having diarrhea since her gallbladder surgery. Due to acute on chronic diarrhea gastroenterology was consulted. Anticipate discharge once diarrhea improves. Patient has been afebrile otherwise. No complaints of abdominal pain. Current medications reviewed. Active Medications Acetaminophen (Tylenol Tab) 650 mg PO Q6HR PRN PRN Reason: Fever and/ or Pain Last Admin: 09/14/19 19:06 Dose: 650 mg Documented by: Albuterol/Ipratropium (Duoneb 0.5 Mg-3 Mg/3 Ml Soln) 3 ml INHALATION RT-Q4H PRN PRN Reason: shortness of breath Alprazolam (Xanax) 1 mg PO HS [facility] Last Admin: 09/14/19 21:32 Dose: 1 mg Documented by: Cholestyramine Resin (Questran) 4 gm PO BID@1000,1800 [facility] Last Admin: 09/15/19 16:01 Dose: Not Given Documented by: Cyanocobalamin (Vitamin B-12) 1,000 mcg SQ Q7DAYS [facility] Estradiol (Estrace) 0.5 mg PO DAILY [facility] Last Admin: 09/15/19 08:52 Dose: 0.5 mg Documented by: Ceftriaxone Sodium 2 gm/ (Sodium Chloride) 50 mls @ 100 mls/hr IVPB Q24HR [facility] Last Admin: 09/15/19 08:51 Dose: 100 mls/hr Documented by: Sodium Chloride (Saline 0.9%) 1,000 mls @ 100 mls/hr IV .Q10H [facility] Last Admin: 09/15/19 12:07 Dose: 100 mls/hr Documented by: Ibuprofen (Motrin) 600 mg PO TID PRN PRN Reason: MODERATE Pain Metoprolol Succinate (Toprol Xl) 25 mg PO DAILY [facility] Last Admin: 09/15/19 08:52 Dose: 25 mg Documented by: Miscellaneous Information (Pneumonia Protocol Utilized) 1 each PO ONCE PRN PRN Reason: Per Protocol Sertraline HCl (Zoloft) 100 mg PO DAILY [facility] Last Admin: 09/15/19 08:52 Dose: 100 mg Documented by: Objective - Vital Signs Vital signs: Vital Signs Temp 97.9 F 09/15/19 05:00 Pulse 57 L 09/15/19 05:00 Resp 18 09/15/19 05:00 BP 158/73 09/15/19 05:00 Pulse Ox 96 09/15/19 05:00 Intake & Output 09/14/19 09/15/19 09/15/19 18:59 06:59 18:59 Intake Total 660 200 Balance 660 200 Intake: Oral 660 200 Other: Voiding Method Toilet # Voids 4 2 - Exam PHYSICAL EXAMINATION: Patient is lying in the bed comfortably, no acute distress, awake alert and oriented.. HEENT: Normocephalic. Neck is supple. Pupils reactive. Nostrils clear. Oral cavity is moist. Ears reveal no drainage. Neck reveals no JVD, carotid bruits, or thyromegaly. CHEST EXAMINATION: Trachea is central. Symmetrical expansion. Lung valadez clear to auscultation and percussion. CARDIAC: Normal S1, S2 with no gallops. No murmurs ABDOMEN: Soft. Bowel sounds normal. No organomegaly. No abdominal bruits. Extremities: reveal no edema. No clubbing or cyanosis Neurologically awake, alert, oriented x3 with well-coordinated movements. No focal deficits noted Skin: No rash or skin lesions. Psychiatric: Coperative. Nonsuicidal Musculoskeletal: No joint swelling or deformity. Normal range of motion. - Labs CBC & Chem 7: 09/15/19 08:55 09/15/19 08:55 Labs: Abnormal Lab Results - Last 24 Hours (Table) 09/15/19 09/15/19 Range/Units 08:55 08:55 WBC 3.4 L (3.8-10.6) k/uL Hgb 9.6 L D (11.4-16.0) gm/dL Hct 32.2 L (34.0-46.0) % MCHC 29.7 L (31.0-37.0) g/dL RDW 15.9 H (11.5-15.5) % Plt Count 145 L (150-450) k/uL Lymphocytes # 0.6 L (1.0-4.8) k/uL Chloride 111 H (98-107) mmol/L Carbon Dioxide 20 L (22-30) mmol/L Glucose 102 H (74-99) mg/dL Microbiology - Last 24 Hours (Table) 09/13/19 15:19 Blood Culture - Preliminary Blood No Growth after 24 hours 09/13/19 19:40 Stool Culture - Preliminary Stool 09/12/19 17:40 Blood Culture Gram Stain - Preliminary Blood Blood Culture - Preliminary Coagulase Negative Staph Assessment and Plan Assessment: Acute right upper lobe pneumonia Coagulase-negative staph in the blood cultures. Vancomycin has been discontinued Anxiety and panic attacks Recent history of cholecystectomy 4 months ago Acute on Chronic diarrhea/short bowel Previous history of smoking Peripheral vascular disease with history of fem-pop bypass/stent placement bilaterally in 2000 Osteoarthritis DVT prophylaxis next and adnexa History of DVT History of non-Q-wave MA plan: Patient will be continued on gentle hydration. Antibiotics in the form of ceftriaxone currently. Continue the home medications and follow closely. Follow-up repeat culture reports. ID and GI on board. Discussed with patient at bedside in detail. Further recommendations based on the clinical course. Time with Patient: Greater than 30
[2019-09-15] MEDS: ALPRAZolam 1 MG TAB PO SCH (21:35)
--- NOTE | 2019-09-15 21:54 | CONS ---
CONSULTATION DATE OF DICTATION: 09/15/2019 REASON FOR CONSULTATION: Chronic diarrhea and anemia. HISTORY OF PRESENT ILLNESS: The patient is a 64-year-old pleasant white female who was admitted to the hospital with shortness of breath and subsequently diagnosed with pneumonia and presently on broad-spectrum antibiotics. She was also noted to have positive blood cultures for coagulase-negative Staph aureus and has been on broad-spectrum antibiotics. The reason GI is consulted is because of chronic diarrhea. She has been having chronic diarrhea for the last 6 months' duration; has bowel movements anywhere from 4-5 a day which are loose to watery in consistency but denies any blood or mucus in the stool. Symptoms are worse in the postprandial period. She had gallbladder surgery in January of this year and since then has been having worsening diarrhea. However, since admission to the hospital diarrhea has progressively gotten worse. She has been having about 10-12 bowel movements daily and this morning already had 6 bowel movements. No blood or mucus in the stool. She had some cramping lower abdominal pain. She reports no nausea or vomiting. No recent weight loss. She did have stool studies done for C difficile toxin that were negative. Stool cultures so far have been negative. She reports no fever, chills or night sweats. PAST MEDICAL HISTORY: Her past medical history is significant for: 1. Hypertension. 2. Hyperlipidemia. 3. History of DVT in the past. 4. Coronary artery disease, status post [place] in the past. 5. Anxiety. 6. Depression. PAST SURGICAL HISTORY: 1. Appendectomy. 2. Bariatric surgery in 2000. 3. Cholecystectomy. 4. Hysterectomy. 5. Fem/pop bypass surgery. 6. Left knee surgery. 7. Left knee arthroscopy. 8. Colonoscopy 5 years ago that was negative. HOME MEDICATIONS: Medications at home include: 1. Xanax. 2. Estrace. 3. Toprol. 4. Vitamin B12. 5. Zoloft. ALLERGIES: NONE. SOCIAL HISTORY: No smoking. Socially drinks alcohol. FAMILY HISTORY: Father had CVA and TIA and mother's history is unremarkable. REVIEW OF SYSTEMS: CARDIOPULMONARY: No chest pain or shortness of breath. GENITOURINARY: No dysuria or hematuria. MUSCULOSKELETAL: Unremarkable. SKIN: Unremarkable. ENDOCRINE: Unremarkable. PSYCHIATRIC: Unremarkable. NEUROLOGY: Unremarkable. ENT/VISION: Unremarkable. CONSTITUTIONAL: No recent weight loss. No fever, chills, night sweats. HEMATOLOGY: Unremarkable other than anemia. PHYSICAL EXAMINATION: She appears comfortable. No apparent distress. VITAL SIGNS: Stable. Blood pressure is 158/73, pulse rate 57, temperature 97. HEENT examination unremarkable. Conjunctivae pink. Sclerae anicteric. Oral cavity no lesions. NECK: No JVD or lymph node enlargement. CHEST: Clear to auscultation. HEART: Regular rate and rhythm. ABDOMEN: Soft. Bowel sounds are positive. No organomegaly. It appears to be slightly distended. It was non-tender. EXTREMITIES: No pedal edema. NEUROLOGIC: Alert and oriented x3. No focal deficits. LABS: Labs done at the time of admission to the hospital showed WBC 4.3, hemoglobin 11.2, platelets normal at 175. Today hemoglobin is 9.6. MCV is normal. PT/INR is within normal limits. Basic metabolic panel is within normal limits. Stool for C difficile toxin negative. Cultures are negative. Blood cultures: Coagulase-negative Staph aureus. IMPRESSION: 1. Chronic diarrhea for the last 6 months' duration. She has been having bowel movements anywhere from 5 to 6 daily which are loose to watery in consistency, but since being in the hospital she has been having worsening diarrhea with bowel movements anywhere from 10 to 12 a day. Stool cultures were negative. C difficile toxin has been negative. Her symptoms began after gallbladder surgery 6 months ago. Her last colonoscopy was approximately 5 years ago and, according to the patient, was within normal limits. 2. Normocytic normochromic anemia, most likely anemia of chronic disease. 3. Left upper lobe pneumonia, on broad-spectrum antibiotics with Rocephin. 4. Coagulase-negative Staphylococcus aureus bacteremia, on antibiotics, and Dr. Logan is following the patient closely. RECOMMENDATIONS: In regards to her chronic diarrhea, I had a lengthy discussion with the patient and gave her an option of having workup done as an inpatient or an outpatient basis. She would like to proceed with EGD and colonoscopy while in the hospital; hence these will be scheduled for tomorrow. I discussed with her the risks, benefits and complications of the procedure, and she is agreeable to it. Thank you for this consultation. MMODL / IJN: [id number] /
[2019-09-16] MEDS: CHOLESTYRAMINE (WITH SUGAR) 4 GM PACKET PO SCH ×2 (08:48→17:01)
[2019-09-16] MEDS: METOPROLOL SUCCINATE (ER) 25 MG TAB.ER.24H PO SCH (08:56)
[2019-09-16] MEDS: SERTRALINE 100 MG TAB PO SCH (08:56)
[2019-09-16] MEDS: SODIUM CHLORIDE 0.9% 1,000 ML IV SCH (08:57)
[2019-09-16] MEDS: ESTRADIOL 0.5 MG TAB PO SCH (08:57)
[2019-09-16] MEDS ORDERED: CYANOCOBALAMIN 1,000 MCG/ML 1 ML VIAL SQ SCH (09:00)
[2019-09-16 11:30] LABS: Anisocytosis Slight; Basophils % (A) 1 %; Eosinophils # (A) 0.1 k/uL (0-0.7); Eosinophils % (A) 2 %; HCT 30.9 % (34.0-46.0); HGB 9.6 gm/dL (11.4-16.0); Hypochromasia Moderate; Lymphocytes # (A) 0.5 k/uL (1.0-4.8); Lymphocytes % (A) 22 %; MCH 26.2 pg (25.0-35.0); MCHC 31.1 g/dL (31.0-37.0); MCV 84.3 fL (80.0-100.0); Mean Platelet Volume 7.9; Monocytes # (A) 0.1 k/uL (0-1.0); Monocytes % (A) 5 %; Neutrophils # (A) 1.6 k/uL (1.3-7.7); Neutrophils % (A) 69 %; Platelet Count 164 k/uL (150-450); RBC 3.66 m/uL (3.80-5.40); RDW 16.2 % (11.5-15.5); WBC 2.4 k/uL (3.8-10.6)
[2019-09-16 11:44] LABS: Calcium 8.6 mg/dL (8.4-10.2); Potassium 4.4 mmol/L (3.5-5.1)
[2019-09-16] MEDS ORDERED: LIDOCAINE 1% INJ 10MG/ML (20 ML MDV) ONE (14:22)
[2019-09-16] MEDS ORDERED: PROPOFOL 10 MG/ML 20 ML VIAL IV ONE (14:22)
--- NOTE | 2019-09-16 14:58 | P.PCN ---
Date of Procedure: 09/16/19 Procedure(s) Performed: Brief history: Patient is a pleasant 64-year-old white female admitted hospital with pneumonia. Patient has been having chronic diarrhea for the last 6 months duration. She has bowel movements 5-6 a day which are loose to watery in consistency. I will was since being in the hospital she has worsening diarrhea with bowel movements anywhere from 10-12 a day. Stool cultures and C. diff toxin was negative. She is hence scheduled for an upper endoscopy as well as colonoscopy to evaluate further. Procedure performed: Esophagogastroduodenoscopy with biopsy Colonoscopy with biopsy and snare polypectomy Preoperative diagnosis: Abdominal pain/chronic diarrhea duration Anesthesia: MAC Procedure: After informed consent was obtained from the patient was brought into the endoscopy unit and IV sedation was administered by anesthesia under continuous monitoring. Initially upper endoscopy was done. The Olympus GF 160 video endoscope was inserted inserted into the mouth and esophagus intubated without any difficulty and was gradually advanced into the gastric pouch. Azeb-en-Y anastomosis appeared normal. Scope was advanced into the jejunum and biopsies were done from this area. The scope was then withdrawn into the esophagus. The GE junction was located at 40 cm to the incisors. It appeared regular with no erythema erosions or ulcerations. Rest of the esophagus appeared normal. Patient tolerated the procedure well. At this time the patient continued to remain sedation. Initial digital rectal examination was normal. Olympus CF 160 video colonoscope was then inserted into the rectum and gradually advanced to the cecum without any difficulty. Careful examination was performed as the scope was gradually being withdrawn. The prep was excellent. The cecum, ascending colon, transverse colon, appeared normal. In the proximal ascending colon at 60 cm from the anal was there was a 1 cm broad-based polyp removed by snare polypectomy there was another 1 cm polyp noted in the distal sigmoid colon that was removed by snare polypectomy. Rest of the descending colon, sigmoid colon and rectum appeared normal. Biopsies were done from ascending and descending colon to rule out microscopic/collagenous colitis Retroflexion was performed in the rectum and no lesions were noted. Patient tolerated the procedure well. Impression: 1. Upper endoscopy reveal edevidence of gastric bypass surgery with normal gastric pouch and normal Azeb-en-Y anastomosis. 2. Colonoscopy revealed 1 cm descending colon polyp and 1 cm; polyp status post snare polypectomy. Rest of the colon appeared normal Recommendations: Findings of this examination were discussed with the patient as well as a family She was advised to follow with the biopsy results. Diet will be advanced as tolerated. She was advised to follow up in office 2 weeks following discharge f rom the hospital]
[2019-09-16] MEDS ORDERED: IV FLUID CONTINUATION 900 ML IV ONE (15:00)
--- NOTE | 2019-09-16 16:08 | P.PN ---
Subjective Progress Note Date: 09/16/19 Principal diagnosis: Pneumonia Acute on chronic diarrhea Patient was initially admitted to the hospital with right upper lobe pneumonia. Patient does not have any fever or chills. No chest pain or shortness of breath. Otherwise patient did have worsening diarrhea since last night. Could be due to antibiotics. Stool studies were ordered. C. diff negative. Added Questran. ID is on board. Urine Legionella antigen is still pending. Patient is having diarrhea since her gallbladder surgery. Due to acute on chronic diarrhea gastroenterology was consulted. 09/16/2019 Patient is seen and evaluated in room at bedside; denies any specific complaint s; patient is status post EGD/colonoscopy this afternoon Upper endoscopy showing evidence of gastric bypass surgery with normal gastric pouch and normal Azeb-en-Y anastomosis Colonoscopy shows 1 cm descending colon polyp which was removed; patient is recommended to advance diet as tolerated and follow-up with GI Possible discharge in next 24 hours Objective - Vital Signs Vital signs: Vital Signs Temp 97.5 F L 09/16/19 05:35 Pulse 58 L 09/16/19 05:35 Resp 20 09/16/19 05:35 BP 138/67 09/16/19 05:35 Pulse Ox 95 09/16/19 05:35 Intake & Output 09/15/19 09/16/19 09/16/19 18:59 06:59 18:59 Intake Total 400 Balance 400 Intake: Oral 400 Other: Voiding Method Toilet # Voids 3 2 1 # Bowel Movements 5 1 - Exam - Constitutional General appearance: Present: average body habitus, cooperative, no acute distress - EENT Eyes: Present: anicteric sclerae, EOMI, PERRLA, normal appearance ENT: Present: hearing grossly normal, normal oropharynx Ears: bilateral: normal - Neck Neck: Present: normal ROM. Absent: lymphadenopathy, rigidity, thyromegaly Carotids: negative: bruit present Thyroid: bilateral: normal size, negative: enlarged, nodule - Respiratory Respiratory: bilateral: CTA, negative: rales, rhonchi, wheezing - Cardiovascular Rhythm: regular Heart sounds: normal: S1, S2 Abnormal Heart Sounds: Absent: systolic murmur, diastolic murmur - Gastrointestinal General gastrointestinal: Present: normal bowel sounds, soft. Absent: distended, organomegaly, tenderness - Genitourinary Genitourinary Comment(s): deferred - Integumentary Integumentary: Present: normal turgor. Absent: jaundiced, rash, ulcer - Neurologic Neurologic: Present: CNII-XII intact. Absent: focal deficits - Musculoskeletal Musculoskeletal: Present: gait normal, strength equal bilaterally - Psychiatric Psychiatric: Present: A&O x's 3, appropriate affect, intact judgment & insight - Labs CBC & Chem 7: 09/16/19 10:01 09/16/19 10:01 Labs: Microbiology - Last 24 Hours (Table) 09/12/19 17:40 Blood Culture Gram Stain - Final Blood Blood Culture - Final Staph hominis sub sp. hominis 09/13/19 15:19 Blood Culture - Preliminary Blood No Growth after 48 hours Assessment and Plan Assessment: Acute right upper lobe pneumonia Coagulase-negative staph in the blood cultures. Vancomycin has been discontinued Anxiety and panic attacks Recent history of cholecystectomy 4 months ago Acute on Chronic diarrhea/short bowel Previous history of smoking Peripheral vascular disease with history of fem-pop bypass/stent placement bila terally in 2000 Osteoarthritis DVT prophylaxis next and adnexa History of DVT History of non-Q-wave SC plan: Patient will be continued on gentle hydration. Antibiotics in the form of ceftriaxone currently. Continue the home medications and follow closely. Follow-up repeat culture reports. ID and GI on board. Discussed with patient at bedside in detail. Further recommendations based on the clinical course. Time with Patient: Greater than 30
--- NOTE | 2019-09-16 16:55 | PN ---
PROGRESS NOTE DATE OF SERVICE: 09/16/2019 REASON FOR FOLLOWUP: 1. Pneumonia. 2. Diarrhea. INTERVAL HISTORY: The patient is currently afebrile. The patient has been breathing comfortably. The patient's cough has decreased in intensity. Still complaining of significant diarrhea. Apparently patient is scheduled for colonoscopy today. No nausea or vomiting, though. PHYSICAL EXAMINATION: Blood pressure 175/73 with a pulse of 58, temperature 97.5. She is 94% on room air. General description is an elderly female up in the chair in no distress. RESPIRATORY SYSTEM: Unlabored breathing. Clear to auscultation anteriorly. HEART: S1, S2. Regular rate and rhythm. ABDOMEN: Soft. No tenderness. LABS: Hemoglobin 9.6, white count 2.4 with a BUN of 9, creatinine 0.88. Stool for C difficile negative. DIAGNOSTIC IMPRESSION AND PLAN: 1. Patient admitted to hospital, primarily with respiratory symptoms with sputum with a pneumonia, possibly community-acquired, currently covered with Rocephin; transition to a short course of oral Ceftin on discharge. 2. Positive blood culture with Staphylococcus hominis, likely skin contamination. Repeat blood culture has been negative. 3. Diarrhea. So far stool study has been negative. Await workup per GI. Continue with supportive care. MMODL / IJN: [id number] /
[2019-09-16] MEDS: ALPRAZolam 1 MG TAB PO SCH (20:21)
[2019-09-17] MEDS: CHOLESTYRAMINE (WITH SUGAR) 4 GM PACKET PO SCH ×2 (08:46→17:53)
[2019-09-17] MEDS: ESTRADIOL 0.5 MG TAB PO SCH (08:46)
[2019-09-17] MEDS: SERTRALINE 100 MG TAB PO SCH (08:46)
[2019-09-17] MEDS: METOPROLOL SUCCINATE (ER) 25 MG TAB.ER.24H PO SCH (08:46)
--- NOTE | 2019-09-17 14:11 | P.PN ---
Subjective Progress Note Date: 09/17/19 Principal diagnosis: Pneumonia Acute on chronic diarrhea Patient was initially admitted to the hospital with right upper lobe pneumonia. Patient does not have any fever or chills. No chest pain or shortness of breath. Otherwise patient did have worsening diarrhea since last night. Could be due to antibiotics. Stool studies were ordered. C. diff negative. Added Questran. ID is on board. Urine Legionella antigen is still pending. Patient is having diarrhea since her gallbladder surgery. Due to acute on chronic diarrhea gastroenterology was consulted. 09/16/2019 Patient is seen and evaluated in room at bedside; denies any specific complaint s; patient is status post EGD/colonoscopy this afternoon Upper endoscopy showing evidence of gastric bypass surgery with normal gastric pouch and normal Azeb-en-Y anastomosis Colonoscopy shows 1 cm descending colon polyp which was removed; patient is recommended to advance diet as tolerated and follow-up with GI Possible discharge in next 24 hours 09/17/2019 Patient is seen and evaluated in room at bedside; patient complains of weakness and lethargy; patient relates that she is supposed to have iron infusion but has been missing it for past few years and is concerned about 2 days symptoms possibly related to significantly low iron levels vital signs remained stable with a temperature of 98.3, pulse 67, respiration 18 and blood pressure 151/59 Patient underwent EGD/colonoscopy resulting in polypectomy of 1 cm descending colon polyps; no further recommendations by GI with outpatient follow-up We will order CBC and serum iron levels; further recommendations after testing is completed Objective - Vital Signs Vital signs: Vital Signs Temp 98.3 F 09/17/19 05:00 Pulse 67 09/17/19 05:00 Resp 18 09/17/19 05:00 BP 151/59 09/17/19 05:00 Pulse Ox 96 09/17/19 05:00 Intake & Output 09/16/19 09/17/19 09/17/19 18:59 06:59 18:59 Intake Total 740 1000 250 Balance 740 1000 250 Intake: IV 200 50 cefTRIAXone 2 gm In 50 Sodium Chloride 0.9% 50 ml @ 100 mls/hr IVPB Q24HR [facility] Rx#:[id number] Oral 540 1000 200 Other: Voiding Method Toilet Toilet # Voids 2 2 # Bowel Movements 1 0 - Exam - Constitutional General appearance: Present: average body habitus, cooperative, no acute distress - EENT Eyes: Present: anicteric sclerae, EOMI, PERRLA, normal appearance ENT: Present: hearing grossly normal, normal oropharynx Ears: bilateral: normal - Neck Neck: Present: normal ROM. Absent: lymphadenopathy, rigidity, thyromegaly Carotids: negative: bruit present Thyroid: bilateral: normal size, negative: enlarged, nodule - Respiratory Respiratory: bilateral: CTA, negative: rales, rhonchi, wheezing - Cardiovascular Rhythm: regular Heart sounds: normal: S1, S2 Abnormal Heart Sounds: Absent: systolic murmur, diastolic murmur - Gastrointestinal General gastrointestinal: Present: normal bowel sounds, soft. Absent: distended, organomegaly, tenderness - Genitourinary Genitourinary Comment(s): deferred - Integumentary Integumentary: Present: normal turgor. Absent: jaundiced, rash, ulcer - Neurologic Neurologic: Present: CNII-XII intact. Absent: focal deficits - Musculoskeletal Musculoskeletal: Present: gait normal, strength equal bilaterally - Psychiatric Psychiatric: Present: A&O x's 3, appropriate affect, intact judgment & insight - Labs CBC & Chem 7: 09/16/19 10:01 09/16/19 10:01 Labs: Microbiology - Last 24 Hours (Table) 09/13/19 19:40 Stool Culture - Final Stool 09/13/19 15:19 Blood Culture - Preliminary Blood No Growth after 72 hours Assessment and Plan Assessment: Acute right upper lobe pneumonia Coagulase-negative staph in the blood cultures. Vancomycin has been discontinued Anxiety and panic attacks Recent history of cholecystectomy 4 months ago Acute on Chronic diarrhea/short bowel Previous history of smoking Peripheral vascular disease with history of fem-pop bypass/stent placement bilaterally in 2000 Osteoarthritis DVT prophylaxis next and adnexa History of DVT History of non-Q-wave RI plan: Patient will be continued on gentle hydration. Antibiotics in the form of ceftriaxone currently. Continue the home medications and follow closely. Follow-up repeat culture reports. ID and GI on board. Discussed with patient at bedside in detail. Further recommendations based on the clinical course. Time with Patient: Greater than 30
[2019-09-17] MEDS: ALPRAZolam 1 MG TAB PO SCH (21:47)
[2019-09-17 22:57] LABS: Iron Saturation 5.99 (12.00-45.00)
[2019-09-18] MEDS: METOPROLOL SUCCINATE (ER) 25 MG TAB.ER.24H PO SCH (08:44)
[2019-09-18] MEDS: SERTRALINE 100 MG TAB PO SCH (08:44)
[2019-09-18] MEDS: CHOLESTYRAMINE (WITH SUGAR) 4 GM PACKET PO SCH ×2 (08:44→17:11)
[2019-09-18] MEDS: ESTRADIOL 0.5 MG TAB PO SCH (08:44)
[2019-09-18 09:37] LABS: Calcium 9.2 mg/dL (8.4-10.2); Potassium 4.9 mmol/L (3.5-5.1)
[2019-09-18 10:11] LABS: HGB 11.1 gm/dL (11.4-16.0); Hypochromasia Marked; MCH 26.4 pg (25.0-35.0); MCV 85.2 fL (80.0-100.0); Platelet Count 193 k/uL (150-450); RBC 4.22 m/uL (3.80-5.40); RDW 15.9 % (11.5-15.5); WBC 3.6 k/uL (3.8-10.6)
[2019-09-18 12:27] LABS: Eosinophils # (M) 0.11 k/uL (0-0.7); Lymphocytes # (M) 0.72 k/uL (1.0-4.8); Monocytes # (M) 0.14 k/uL (0-1.0); Neutrophils % (M) 73 %; Nucleated Red Blood Cells 0 /100 WBC (0-0); Total Cells Counted 100
--- NOTE | 2019-09-18 17:16 | P.PN ---
Subjective Progress Note Date: 09/18/19 Principal diagnosis: Pneumonia Acute on chronic diarrhea Patient was initially admitted to the hospital with right upper lobe pneumonia. Patient does not have any fever or chills. No chest pain or shortness of breath. Otherwise patient did have worsening diarrhea since last night. Could be due to antibiotics. Stool studies were ordered. C. diff negative. Added Questran. ID is on board. Urine Legionella antigen is still pending. Patient is having diarrhea since her gallbladder surgery. Due to acute on chronic diarrhea gastroenterology was consulted. 09/16/2019 Patient is seen and evaluated in room at bedside; denies any specific complaint s; patient is status post EGD/colonoscopy this afternoon Upper endoscopy showing evidence of gastric bypass surgery with normal gastric pouch and normal Azeb-en-Y anastomosis Colonoscopy shows 1 cm descending colon polyp which was removed; patient is recommended to advance diet as tolerated and follow-up with GI Possible discharge in next 24 hours 09/17/2019 Patient is seen and evaluated in room at bedside; patient complains of weakness and lethargy; patient relates that she is supposed to have iron infusion but has been missing it for past few years and is concerned about 2 days symptoms possibly related to significantly low iron levels vital signs remained stable with a temperature of 98.3, pulse 67, respiration 18 and blood pressure 151/59 Patient underwent EGD/colonoscopy resulting in polypectomy of 1 cm descending colon polyps; no further recommendations by GI with outpatient follow-up We will order CBC and serum iron levels; further recommendations after testing is completed 09/18/2019 Patient is seen and evaluated as follow-up for iron deficiency anemia; patient denies any specific complaints Vital signs remained stable with a temperature of 97.9, pulse 54, respiration 18 and blood pressure 113/58 with SpO2 of 96% on room air Labs are reviewed and discussed with patient; white blood count of 3.6, hemoglobin 11.1 and platelet count of 193; sodium 139, potassium 4.9; serum iron level of 20 and iron saturation of 5.9 Patient indicates that she is highly intolerant to oral iron replacement; we will order iron infusion with Ferrlecit 125 mg daily 2; patient will receive first infusion tonight with the repeat one tomorrow morning; patient could be discharged home after second dose of fine infusion and follow-up with GI as an outpatient Objective - Vital Signs Vital signs: Vital Signs Temp 97.9 F 09/18/19 05:00 Pulse 54 L 09/18/19 05:00 Resp 18 09/18/19 05:00 BP 113/58 09/18/19 05:00 Pulse Ox 96 09/18/19 05:00 Intake & Output 09/17/19 09/18/19 09/18/19 18:59 06:59 18:59 Intake Total 970 850 800 Balance 970 850 800 Intake: IV 50 cefTRIAXone 2 gm In 50 Sodium Chloride 0.9% 50 ml @ 100 mls/hr IVPB Q24HR [facility] Rx#:[id number] Oral 920 850 800 Other: Voiding Method Toilet # Voids 2 2 # Bowel Movements 0 - Exam - Constitutional General appearance: Present: average body habitus, cooperative, no acute distress - EENT Eyes: Present: anicteric sclerae, EOMI, PERRLA, normal appearance ENT: Present: hearing grossly normal, normal oropharynx Ears: bilateral: normal - Neck Neck: Present: normal ROM. Absent: lymphadenopathy, rigidity, thyromegaly Carotids: negative: bruit present Thyroid: bilateral: normal size, negative: enlarged, nodule - Respiratory Respiratory: bilateral: CTA, negative: rales, rhonchi, wheezing - Cardiovascular Rhythm: regular Heart sounds: normal: S1, S2 Abnormal Heart Sounds: Absent: systolic murmur, diastolic murmur - Gastrointestinal General gastrointestinal: Present: normal bowel sounds, soft. Absent: distended, organomegaly, tenderness - Genitourinary Genitourinary Comment(s): deferred - Integumentary Integumentary: Present: normal turgor. Absent: jaundiced, rash, ulcer - Neurologic Neurologic: Present: CNII-XII intact. Absent: focal deficits - Musculoskeletal Musculoskeletal: Present: gait normal, strength equal bilaterally - Psychiatric Psychiatric: Present: A&O x's 3, appropriate affect, intact judgment & insight - Labs CBC & Chem 7: 09/18/19 08:32 09/18/19 08:32 Labs: Abnormal Lab Results - Last 24 Hours (Table) 09/16/19 09/18/19 09/18/19 Range/Units 10:01 08:32 08:32 WBC 3.6 L (3.8-10.6) k/uL Hgb 11.1 L (11.4-16.0) gm/dL RDW 15.9 H (11.5-15.5) % Lymphocytes # (Manual) 0.72 L (1.0-4.8) k/uL Chloride 108 H (98-107) mmol/L Carbon Dioxide 20 L (22-30) mmol/L Glucose 197 H (74-99) mg/dL Iron 20 L (50-170) ug/dL Iron Saturation 5.99 L (12.00-45.00) Microbiology - Last 24 Hours (Table) 09/13/19 15:19 Blood Culture - Preliminary Blood No Growth after 96 hours 09/13/19 19:40 Stool Culture - Final Stool Assessment and Plan Assessment: Acute right upper lobe pneumonia Coagulase-negative staph in the blood cultures. Vancomycin has been discontinued Anxiety and panic attacks Recent history of cholecystectomy 4 months ago Acute on Chronic diarrhea/short bowel Previous history of smoking Peripheral vascular disease with history of fem-pop bypass/stent placement bilaterally in 2000 Osteoarthritis DVT prophylaxis next and adnexa History of DVT History of non-Q-wave CT plan: Patient will be continued on gentle hydration. Antibiotics in the form of ceftriaxone currently. Continue the home medications and follow closely. Follow-up repeat culture reports. ID and GI on board. Discussed with patient at bedside in detail. Further recommendations based on the clinical course.
[2019-09-18] MEDS: SODIUM FERRIC GLUCONAT-SUCROSE 125 MG in SODIUM CHLORIDE 0.9% 100 ML IVPB SCH (18:02)
[2019-09-18] MEDS: ALPRAZolam 1 MG TAB PO SCH (20:16)
--- NOTE | 2019-09-18 22:48 | PN ---
PROGRESS NOTE DATE OF SERVICE: 09/18/2019. REASON FOR FOLLOWUP: Pneumonia, community-acquired. INTERVAL HISTORY: The patient is currently afebrile. Patient has been breathing comfortably. The patient denies having any chest pain. Her cough has improved. No nausea, vomiting, abdominal pain, diarrhea has as well. PHYSICAL EXAMINATION: Blood pressure 143/74 with a pulse of 87, temp is 97.9. She is 97% on room air. General description is an elderly female up in the chair in no distress. Respiratory system: Unlabored breathing. Clear to auscultation. Heart S1, S2. Regular rate and rhythm. ABDOMEN: Soft. LABS: Hemoglobin 11.6, white count 3.6, BUN of 9, creatinine 2.99. Stool cultures have been negative. No sputum was collected. DIAGNOSTIC IMPRESSION/PLAN: 1. Patient with pneumonia likely community acquired. The patient who has shown clinical improvement currently on Rocephin. Plan to finish therapy with a short course of oral Ceftin. 2. Positive blood culture with Staphylococcus hominis contamination. Repeat blood culture has been negative. No need for further therapy for the same. 3. Diarrhea. So far infection workup is negative and the patient showed clinical improvement. MMODL / IJN: [id number] /
[2019-09-19] MEDS: ESTRADIOL 0.5 MG TAB PO SCH (08:46)
[2019-09-19] MEDS: METOPROLOL SUCCINATE (ER) 25 MG TAB.ER.24H PO SCH (08:46)
[2019-09-19] MEDS: SERTRALINE 100 MG TAB PO SCH (08:46)
[2019-09-19] MEDS: CHOLESTYRAMINE (WITH SUGAR) 4 GM PACKET PO SCH (08:47)
[2019-09-19 11:23] LABS: Basophils % (A) 1 %; Eosinophils # (A) 0.1 k/uL (0-0.7); Eosinophils % (A) 2 %; HCT 34.8 % (34.0-46.0); Hypochromasia Moderate; Lymphocytes # (A) 0.8 k/uL (1.0-4.8); Lymphocytes % (A) 19 %; MCH 26.1 pg (25.0-35.0); MCHC 31.5 g/dL (31.0-37.0); MCV 82.8 fL (80.0-100.0); Mean Platelet Volume 6.7; Monocytes # (A) 0.2 k/uL (0-1.0); Monocytes % (A) 3 %; Neutrophils # (A) 3.2 k/uL (1.3-7.7); Neutrophils % (A) 74 %; Platelet Count 240 k/uL (150-450); Potassium 5.1 mmol/L (3.5-5.1); RDW 15.6 % (11.5-15.5); WBC 4.3 k/uL (3.8-10.6)
[2019-09-19] MEDS: SODIUM FERRIC GLUCONAT-SUCROSE 125 MG in SODIUM CHLORIDE 0.9% 100 ML IVPB SCH (14:43)
[2019-09-19 15:37] VITALS: BP 139/61; PULSE 75; RESP 16; TEMP 96.8
--- NOTE | 2019-09-19 21:49 | PN ---
PROGRESS NOTE DATE OF SERVICE: 09/19/2019 REASON FOR FOLLOWUP: 1. Pneumonia. 2. Diarrhea. INTERVAL HISTORY: The patient was seen on rounds earlier this afternoon. The patient has been afebrile. She was breathing comfortably. Denies having any chest pain or shortness of breath. Cough has resolved. No nausea or vomiting. Diarrhea has improved. PHYSICAL EXAMINATION: Blood pressure 139/61 with pulse of 75, temperature 96.8. She is 94% on room air. General description is an elderly female up in the bed in no distress. RESPIRATORY SYSTEM: Unlabored breathing. Clear to auscultation anteriorly. HEART: S1, S2. Regular rate and rhythm. ABDOMEN: Soft. No tenderness. LABS: Hemoglobin is 11 with a white count of 4.3, BUN of 13, creatinine 0.91. DIAGNOSTIC IMPRESSION AND PLAN: 1. Patient admitted to hospital with pneumonia, community-acquired. Patient's overall pneumonia has been adequately treated. No need for further antibiotic therapy on discharge. 2. Diarrhea. Stool for workup is negative. Responded to the [facility]; to continue for another 5 days. She has been advised to increase her probiotic and yogurt intake. MMODL / IJN: [id number] /
== END 2019-09-19 17:02 | disposition home or self-care (01) | DRG 194 ==
LOC: EC 16:42 → 4MS4W 18:59 → OBSVTOIN 09-14 11:44
PROVIDERS: ADMIT Hospitalist; ATTEND Hospitalist
PROC: 05HF33Z Insertion of Infusion Device into Left Cephalic Vein, Percutaneous Approach (ICD-10-PCS; principal; 2019-09-14 11:50)
PROC: 0DBN8ZX Excision of Sigmoid Colon, Via Natural or Artificial Opening Endoscopic, Diagnostic (ICD-10-PCS; 2019-09-16)
PROC: 0DBK8ZX Excision of Ascending Colon, Via Natural or Artificial Opening Endoscopic, Diagnostic (ICD-10-PCS; 2019-09-16)
PROC: 0DBM8ZX Excision of Descending Colon, Via Natural or Artificial Opening Endoscopic, Diagnostic (ICD-10-PCS; 2019-09-16)
PROC: 0DBA8ZX Excision of Jejunum, Via Natural or Artificial Opening Endoscopic, Diagnostic (ICD-10-PCS; 2019-09-16 07:30)
PROC: 0DBK8ZX Excision of Ascending Colon, Via Natural or Artificial Opening Endoscopic, Diagnostic (ICD-10-PCS; 2019-09-16 07:30)
DX: J18.1 Lobar pneumonia, unspecified organism (principal); K91.2 Postsurgical malabsorption, not elsewhere classified; I10 Essential (primary) hypertension; K63.5 Polyp of colon; D50.9 Iron deficiency anemia, unspecified; E78.5 Hyperlipidemia, unspecified; I25.10 Atherosclerotic heart disease of native coronary artery without angina pectoris; F32.9 Major depressive disorder, single episode, unspecified; F41.9 Anxiety disorder, unspecified; F41.0 Panic disorder [episodic paroxysmal anxiety]; K52.89 Other specified noninfective gastroenteritis and colitis; M19.90 Unspecified osteoarthritis, unspecified site; I25.2 Old myocardial infarction; Z79.890 Hormone replacement therapy; Z79.899 Other long term (current) drug therapy; Z86.718 Personal history of other venous thrombosis and embolism; Z86.19 Personal history of other infectious and parasitic diseases; Z86.14 Personal history of Methicillin resistant Staphylococcus aureus infection; Z87.891 Personal history of nicotine dependence; Z98.84 Bariatric surgery status; Z90.49 Acquired absence of other specified parts of digestive tract; Z90.710 Acquired absence of both cervix and uterus; Z95.828 Presence of other vascular implants and grafts; Z86.79 Personal history of other diseases of the circulatory system; Z98.890 Other specified postprocedural states; Z82.3 Family history of stroke; Y83.2 Surgical operation with anastomosis, bypass or graft as the cause of abnormal reaction of the patient, or of later complication, without mention of misadventure at the time of the procedure
CPT/HCPCS: 36410; 36415; 43239; 45380; 45385; 71046; 71275; 76937; 80048; 80053; 81001; 82550; 82565; 83540; 83550; 83735; 83880; 84484; 85025; 85610; 85730; 87040; 87045; 87046; 87077; 87186; 87324; 87449; 87502; 88305; 88313; 93005; 94760; 96361; 96365; 96375; 99285

== ENCOUNTER 2020-02-06 10:00 | Inpatient (IN) | payer MEDICARE ==
[2020-02-06] MEDS ORDERED: IPRATROPIUM-ALBUTEROL 3 ML NEB INHALATION STA (11:01)
[2020-02-06] MEDS ORDERED: SODIUM CHLORIDE 0.9% 1,000 ML IV STA (11:01)
--- NOTE | 2020-02-06 11:06 | ED ---
General Adult HPI - General Chief complaint: Shortness of Breath Stated complaint: poss pneumonia Time Seen by Provider: 02/06/20 10:31 Source: patient, RN notes reviewed Mode of arrival: ambulatory Limitations: no limitations - History of Present Illness Initial comments: Patient is a pleasant 64-year-old female presenting to the emergency department complaints of cough. Symptoms have been occurring for several days. Patient saw her doctor and started on inhaler and azithromycin without much improvement. Patient has chest congestion however cough is been nonproductive. Patient also has sinus discomfort and congestion. No fevers. No chest pain. Patient has mild nausea. No vomiting. No abdominal pain. Patient did have similar symptoms once previously associated with pneumonia. No history of previous lung disease. - Related Data Home Medications Medication Instructions Recorded Confirmed ALPRAZolam [Xanax] 1 mg PO HS 09/25/17 09/12/19 Estradiol [Estrace] 0.5 mg PO DAILY 09/25/17 09/12/19 Metoprolol Succinate (ER) [Toprol 25 mg PO DAILY 09/25/17 09/12/19 XL] Cyanocobalamin (Vitamin B-12) 1,000 mcg SQ Q7DAYS 09/12/19 09/12/19 [Vitamin B-12] Sertraline HCl [Zoloft] 100 mg PO DAILY 09/12/19 09/12/19 Previous Rx's Medication Instructions Recorded Cholestyramine (with Sugar) 4 gm PO BID@1000,1800 #10 packet 09/19/19 [[facility] Packet] Allergies Allergy/AdvReac Type Severity Reaction Status Date / Time No Known Allergies Allergy Verified 02/06/20 10:23 Review of Systems ROS Statement: Those systems with pertinent positive or pertinent negative responses have been documented in the HPI. ROS Other: All systems not noted in ROS Statement are negative. Constitutional: Denies: fever Eyes: Denies: eye pain ENT: Reports: congestion. Denies: ear pain Respiratory: Reports: cough, dyspnea Cardiovascular: Denies: chest pain Endocrine: Denies: fatigue Gastrointestinal: Reports: nausea. Denies: abdominal pain, vomiting Genitourinary: Denies: dysuria Musculoskeletal: Denies: back pain Skin: Denies: rash Neurological: Denies: weakness Past Medical History Past Medical History: Deep Vein Thrombosis (DVT), Myocardial Infarction (non Q- wave), Pneumonia Additional Past Medical History / Comment(s): pvd anxiety/ panic attacks ,shingles , thin skin,pernicus anemia, Last Myocardial Infarction Date:: 10/2014 History of Any Multi-Drug Resistant Organisms: MRSA Date of last positivie culture/infection: 2000 MDRO Source:: wound Past Surgical History: Appendectomy, Bariatric Surgery, Cholecystectomy, Hysterectomy Additional Past Surgical History / Comment(s): fem/pop bypass/stents lulu, gastric bypass in 2000, lt shoulder sx, rt knee arthrocopy,lt breast biopsy-neg, colonoscopy-neg Past Anesthesia/Blood Transfusion Reactions: No Reported Reaction Past Psychological History: Anxiety Smoking Status: Former smoker Past Alcohol Use History: Rare Past Drug Use History: None Reported - Past Family History Father Family Medical History: CVA/TIA Additional Family Medical History / Comment(s): STROKE AT AGE 50 Mother Family Medical History: No Reported History General Exam Limitations: no limitations General appearance: alert, in no apparent distress Head exam: Present: normocephalic Eye exam: Present: normal appearance, PERRL ENT exam: Present: normal oropharynx, TM's normal bilaterally, other (Sinus tenderness bilateral, maxillary) Neck exam: Present: normal inspection Respiratory exam: Present: normal lung sounds bilaterally Cardiovascular Exam: Present: regular rate, normal rhythm GI/Abdominal exam: Present: soft. Absent: tenderness Extremities exam: Present: normal inspection. Absent: pedal edema, calf tenderness Back exam: Present: normal inspection Neurological exam: Present: alert Psychiatric exam: Present: normal affect, normal mood Skin exam: Present: normal color Course Vital Signs 02/06/20 02/06/20 02/06/20 10:20 10:38 11:48 Temperature 99.4 F Pulse Rate 63 68 Respiratory 18 20 Rate Blood Pressure 168/72 O2 Sat by Pulse 97 Oximetry 02/06/20 11:55 Temperature Pulse Rate 68 Respiratory Rate Blood Pressure O2 Sat by Pulse Oximetry - Reevaluation(s) Reevaluation #1: 02/06/20 12:42 Patient does not meet sepsis criteria at this time EKG Findings - EKG Comments: EKG Findings:: Normal sinus rhythm 66. NV 160. QRS 64. QT 434. QTC 454. Normal axis. Normal QRS. No acute ST change. Medical Decision Making - Medical Decision Making Patient reevaluated and resting comfortably in bed. Patient and family updated on results and plan. Case was discussed in detail with Dr. Foy, who will admit covering for Dr. zuluaga - Lab Data Result diagrams: 02/06/20 11:25 02/06/20 11:25 Lab Results 02/06/20 02/06/20 02/06/20 Range/Units 11:15 11:25 11:25 WBC 2.9 L (3.8-10.6) k/uL RBC 4.43 (3.80-5.40) m/uL Hgb 12.5 (11.4-16.0) gm/dL Hct 38.3 (34.0-46.0) % MCV 86.4 (80.0-100.0) fL MCH 28.2 (25.0-35.0) pg MCHC 32.7 (31.0-37.0) g/dL RDW 14.0 (11.5-15.5) % Plt Count 108 L (150-450) k/uL Neutrophils % 73 % Lymphocytes % 17 % Monocytes % 7 % Eosinophils % 1 % Basophils % 0 % Neutrophils # 2.1 (1.3-7.7) k/uL Lymphocytes # 0.5 L (1.0-4.8) k/uL Monocytes # 0.2 (0-1.0) k/uL Eosinophils # 0.0 (0-0.7) k/uL Basophils # 0.0 (0-0.2) k/uL PT 9.4 (9.0-12.0) sec INR 0.9 (<1.2) APTT 22.1 (22.0-30.0) sec D-Dimer 0.34 (<0.60) mg/L FEU Sodium (137-145) mmol/L Potassium (3.5-5.1) mmol/L Chloride (98-107) mmol/L Carbon Dioxide (22-30) mmol/L Anion Gap mmol/L BUN (7-17) mg/dL Creatinine (0.52-1.04) mg/dL Est GFR (CKD-EPI)AfAm (>60 ml/min/1.73 sqM) Est GFR (CKD-EPI)NonAf (>60 ml/min/1.73 sqM) Glucose (74-99) mg/dL Plasma Lactic Acid Cristobal (0.7-2.0) mmol/L Calcium (8.4-10.2) mg/dL Magnesium (1.6-2.3) mg/dL Total Bilirubin (0.2-1.3) mg/dL AST (14-36) U/L ALT (4-34) U/L Alkaline Phosphatase (38-126) U/L NT-Pro-B Natriuret Pep pg/mL Total Protein (6.3-8.2) g/dL Albumin (3.5-5.0) g/dL Influenza Type A RNA Not Detected (Not Detectd) Influenza Type B (PCR) Not Detected (Not Detectd) 02/06/20 02/06/20 02/06/20 Range/Units 11:25 11:25 11:25 WBC (3.8-10.6) k/uL RBC (3.80-5.40) m/uL Hgb (11.4-16.0) gm/dL Hct (34.0-46.0) % MCV (80.0-100.0) fL MCH (25.0-35.0) pg MCHC (31.0-37.0) g/dL RDW (11.5-15.5) % Plt Count (150-450) k/uL Neutrophils % % Lymphocytes % % Monocytes % % Eosinophils % % Basophils % % Neutrophils # (1.3-7.7) k/uL Lymphocytes # (1.0-4.8) k/uL Monocytes # (0-1.0) k/uL Eosinophils # (0-0.7) k/uL Basophils # (0-0.2) k/uL PT (9.0-12.0) sec INR (<1.2) APTT (22.0-30.0) sec D-Dimer (<0.60) mg/L FEU Sodium 135 L (137-145) mmol/L Potassium 4.8 (3.5-5.1) mmol/L Chloride 104 (98-107) mmol/L Carbon Dioxide 22 (22-30) mmol/L Anion Gap 9 mmol/L BUN 9 (7-17) mg/dL Creatinine 0.85 (0.52-1.04) mg/dL Est GFR (CKD-EPI)AfAm 84 (>60 ml/min/1.73 sqM) Est GFR (CKD-EPI)NonAf 72 (>60 ml/min/1.73 sqM) Glucose 106 H (74-99) mg/dL Plasma Lactic Acid Cristobal 1.4 (0.7-2.0) mmol/L Calcium 8.8 (8.4-10.2) mg/dL Magnesium 1.9 (1.6-2.3) mg/dL Total Bilirubin 0.8 (0.2-1.3) mg/dL AST 32 (14-36) U/L ALT 14 (4-34) U/L Alkaline Phosphatase 103 (38-126) U/L NT-Pro-B Natriuret Pep 900 pg/mL Total Protein 7.3 (6.3-8.2) g/dL Albumin 4.2 (3.5-5.0) g/dL Influenza Type A RNA (Not Detectd) Influenza Type B (PCR) (Not Detectd) - Radiology Data Radiology results: image reviewed (Chest x-ray shows right upper lobe infiltrate ) Disposition Clinical Impression: Pneumonia Disposition: ADMITTED IP TO THIS HOSP Is patient prescribed a controlled substance at d/c from ED?: No Referrals: Parmjit Roblero MD [Primary Care Provider] - 1-2 days Decision Time: 12:43
[2020-02-06 11:43] LABS: Basophils % (A) 0 %; Eosinophils % (A) 1 %; HCT 38.3 % (34.0-46.0); HGB 12.5 gm/dL (11.4-16.0); Lymphocytes # (A) 0.5 k/uL (1.0-4.8); Lymphocytes % (A) 17 %; MCH 28.2 pg (25.0-35.0); MCHC 32.7 g/dL (31.0-37.0); MCV 86.4 fL (80.0-100.0); Mean Platelet Volume 7.7; Monocytes # (A) 0.2 k/uL (0-1.0); Monocytes % (A) 7 %; Neutrophils # (A) 2.1 k/uL (1.3-7.7); Neutrophils % (A) 73 %; Platelet Count 108 k/uL (150-450); RBC 4.43 m/uL (3.80-5.40); WBC 2.9 k/uL (3.8-10.6)
[2020-02-06 11:52] LABS: Albumin 4.2 g/dL (3.5-5.0); Calcium 8.8 mg/dL (8.4-10.2); Magnesium 1.9 mg/dL (1.6-2.3); Total Bilirubin 0.8 mg/dL (0.2-1.3); Total Protein 7.3 g/dL (6.3-8.2)
--- NOTE | 2020-02-06 11:54 | XR ---
EXAMINATION TYPE: XR chest 2V DATE OF EXAM: 02/06/2020 COMPARISON: 09/13/2019 HISTORY: 64-year-old female difficulty breathing and shortness of breath TECHNIQUE: PA and lateral views FINDINGS: Heart upper limits of normal in size. Aorta and pulmonary vasculature within normal limits. Patchy in terstitial opacity peripheral right upper and midlung. No other consolidation or pleural effusion see n. IMPRESSION: Correlate for recurrent or residual right upper lobe infiltrate. Follow-up after treatment to ensure clearance.
[2020-02-06 11:55] LABS: Potassium 4.8 mmol/L (3.5-5.1)
[2020-02-06 12:08] LABS: D-Dimer 0.34 mg/L FEU (<0.60); INR 0.9 (<1.2); Partial Thromboplastin Time 22.1 sec (22.0-30.0); Prothrombin Time 9.4 sec (9.0-12.0)
[2020-02-06] MEDS ORDERED: IPRATROPIUM-ALBUTEROL 3 ML NEB INHALATION PRN (12:43)
[2020-02-06] MEDS ORDERED: LEVOFLOXACIN 750MG-D5W PMX 750 MG in DEXTROSE/WATER 1 150ML.BAG IVPB STA (12:43)
[2020-02-06] MEDS ORDERED: PNEUMONIA PROTOCOL UTILIZED 1 EACH MISC PO PRN (12:43)
[2020-02-06] MEDS ORDERED: SODIUM CHLORIDE 0.9% 1,000 ML IV SCH (12:45)
[2020-02-06] MEDS: IPRATROPIUM-ALBUTEROL 3 ML NEB INHALATION SCH ×2 (15:28→18:54)
[2020-02-06] MEDS ORDERED: ACETAMINOPHEN TAB 500 MG TAB PO PRN (18:24)
[2020-02-06] MEDS ORDERED: HYDROcodone/APAP 5-325MG 1 EACH TAB PO PRN (18:24)
[2020-02-06] MEDS ORDERED: TEMAZEPAM 15 MG CAP PO PRN (18:24)
[2020-02-06] MEDS ORDERED: guaiFENesin SYRUP 100MG/5ML 200 MG/10 ML CUP PO PRN (18:26)
[2020-02-06] MEDS: FORMOTEROL FUMARATE 20 MCG/2 ML NEBU INHALATION SCH (18:53)
[2020-02-06] MEDS: BUDESONIDE 1 MG/2 ML NEBU INHALATION SCH (18:53)
[2020-02-06 19:51] LABS: Glucose,Whole Blood 125 mg/dL (75-99)
[2020-02-06] MEDS: ESTRADIOL 0.5 MG TAB PO SCH (20:03)
[2020-02-06] MEDS: methylPREDNISolone SOD SUCCI 125 MG/2 ML VIAL IV SCH (20:03)
[2020-02-06] MEDS: HEPARIN SODIUM,PORCINE 5,000 UNIT/ML 1 ML VIAL SQ SCH (20:03)
[2020-02-06] MEDS: guaiFENesin 600 MG TABLET.ER PO SCH (20:03)
[2020-02-06] MEDS: ALPRAZolam 1 MG TAB PO SCH (20:04)
[2020-02-06] MEDS: SERTRALINE 100 MG TAB PO SCH (20:04)
[2020-02-06] MEDS: METOPROLOL SUCCINATE (ER) 25 MG TAB.ER.24H PO SCH (20:04)
[2020-02-06] MEDS: AZITHROMYCIN 500 MG in SODIUM CHLORIDE 0.9% 250 ML IVPB SCH (20:04)
[2020-02-06] MEDS: INSULIN ASPART (NovoLOG) 100 UNIT/ML VIAL SQ SCH (20:07)
--- NOTE | 2020-02-06 21:38 | HP ---
HISTORY AND PHYSICAL DATE OF SERVICE: 02/06/2020 CHIEF COMPLAINTS: Shortness of breath and cough and possible pneumonia. HISTORY OF PRESENT ILLNESS: This 64-year-old woman with a past medical history of multiple problems including history of DVT, GERD, DJD, history of myocardial infarction, history of appendectomy, history of bariatric surgery, history of breast surgery, anxiety, panic disorder, being followed by Annika in the outpatient setting, not feeling well for the past several days. 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 The patient had cough and sputum and congestion. The patient was seen in the outpatient setting and was started on Zithromax. Because of lack of improvement, the patient came to [facility] and was admitted for further evaluation and treatment. A chest x-ray done in the in the ER which I personally reviewed by me showed evidence of possible right upper lobe pneumonia. The patient admitted for further evaluation and treatment. There is no history of fever, rigors or chills. No history of headache, loss of consciousness, seizures. Influenza negative. Patient has taken flu shot also. The patient also had diarrhea which is noted after bariatric surgery and which has been extensively evaluated without any final diagnosis according to her. PAST MEDICAL HISTORY: Past medical history of DVT, history of GERD, hypertension, history of myocardial infarction, history of pneumonia, history of vascular disorder, appendectomy, history of MRSA, vascular disorder, history of appendectomy, bariatric surgery. MEDICATIONS: Home medications are: 1. Requip 1 mg q.h.s. 2. Zoloft 100 mg daily. 3. Zithromax. 4. Toprol-XL 25 mg daily. 5. Estrace 0.5 daily. 6. Xanax 1 mg q.h.s. 7. Vitamin B2 1000 mcg subcu q.14 days. ALLERGIES: None. FAMILY HISTORY: History of CVA, TIA, stroke in the family. SOCIAL HISTORY: Previous history of smoking. Occasional alcohol intake. REVIEW OF SYSTEMS: ENT: No diminished vision. No diminished hearing. CARDIOVASCULAR: No angina or palpitations. RESPIRATION: As mentioned earlier. no dysuria or hematuria. Nervous system: No numbness or weakness. Allergy/Immunology: No asthma or hayfever. Musculoskeletal as mentioned earlier. Hematology/Oncology: No history of anemia. ENDOCRINE: No history of diabetes or hypothyroid. Constitutional: As mentioned earlier. Dermatology: Negative. Rheumatology: Negative. Psychiatry: As mentioned earlier. PHYSICAL EXAMINATION: The patient is alert, oriented x3. The pulse is 72. Blood pressure 187/76, respiration 18, temperature 97.8, pulse ox 94% on room air. HEENT: Conjunctivae normal. Oral mucosa moist. Neck is no jugular venous distention. No carotid bruit. No lymph node enlargement. Cardiovascular system: S1, S2 muffled. No S3, no S4. RESPIRATORY: Breath sounds diminished in the bases. Bilateral scattered rhonchi and crackles. ABDOMEN: Soft, nontender. No mass palpable. LEGS: No edema. No swelling. NERVOUS SYSTEM: Higher functions as mentioned earlier. Moves all 4 limbs. No focal motor or sensory deficits. Lymphatics: No lymph nodes palpable in the neck, axillae or groin. SKIN: No ulcer, no rashes and no bleeding. JOINTS: No active deforming arthropathy. LABS: At this time shows WBC 8.9, hemoglobin 12.4, sodium 135. Influenza negative. ASSESSMENT: 1. Possible chronic obstructive pulmonary disease acute exacerbation with possible acute right upper lobe pneumonia possibly gram-negative. 2. History of deep vein thrombosis. 3. History of gastroesophageal reflux disease. 4. Hypertension. 5. History of myocardial infarction. 6. History of pneumonia. 7. History of bariatric surgery. 8. History of chronic diarrhea after surgery. 9. History of deep vein thrombosis. 10.History of restless legs syndrome. 11.History of MRSA. 12.History of cholecystectomy. 13.History of degenerative joint disease. 14.Anxiety, panic disorder. 15.Remote history of nicotine dependence. 16.Obesity with body mass of 33.3. RECOMMENDATIONS AND DISCUSSION: This 64-year-old woman who presented with multiple complex medical issues, we will monitor the patient closely, continue the current medications, management and symptomatic treatment. I recommend continue with bronchodilators, empiric antibiotics. I would also recommend pulmonary consultation with Dr. Recinos. Otherwise, prognosis guarded because of multiple complex medical issues. Further recommendations to follow. The patient had bacteremia during the previous admission which was found to be Staph hominis. We will continue to monitor. We will order the blood cultures also. See orders for details. Home medications will be ordered. Consult will be ordered. A copy of dictation being forwarded to Dr. Roblero in the outpatient setting. MMODL / IJN: [id number] /
[2020-02-07] MEDS: ALPRAZolam 0.25 MG TAB PO PRN (01:34)
[2020-02-07] MEDS: methylPREDNISolone SOD SUCCI 125 MG/2 ML VIAL IV SCH ×5 (01:34→23:38)
[2020-02-07 07:09] LABS: Glucose,Whole Blood 162 mg/dL (75-99)
[2020-02-07] MEDS: IPRATROPIUM-ALBUTEROL 3 ML NEB INHALATION SCH ×4 (07:17→20:04)
[2020-02-07] MEDS: BUDESONIDE 1 MG/2 ML NEBU INHALATION SCH ×2 (07:17→20:02)
[2020-02-07] MEDS: FORMOTEROL FUMARATE 20 MCG/2 ML NEBU INHALATION SCH ×2 (07:17→20:02)
[2020-02-07] MEDS: INSULIN ASPART (NovoLOG) 100 UNIT/ML VIAL SQ SCH ×4 (07:42→20:07)
[2020-02-07] MEDS: HEPARIN SODIUM,PORCINE 5,000 UNIT/ML 1 ML VIAL SQ SCH ×2 (07:43→20:07)
[2020-02-07] MEDS: ESTRADIOL 0.5 MG TAB PO SCH (07:43)
[2020-02-07] MEDS: METOPROLOL SUCCINATE (ER) 25 MG TAB.ER.24H PO SCH (07:43)
[2020-02-07] MEDS: guaiFENesin 600 MG TABLET.ER PO SCH ×2 (07:43→20:07)
[2020-02-07] MEDS: PANTOPRAZOLE 40 MG TABLET PO SCH (07:43)
[2020-02-07] MEDS: SERTRALINE 100 MG TAB PO SCH (07:44)
[2020-02-07 08:26] LABS: Basophils % (A) 0 %; Eosinophils % (A) 1 %; HCT 36.5 % (34.0-46.0); Lymphocytes # (A) 0.4 k/uL (1.0-4.8); Lymphocytes % (A) 23 %; MCH 28.2 pg (25.0-35.0); MCHC 32.8 g/dL (31.0-37.0); MCV 85.8 fL (80.0-100.0); Mean Platelet Volume 8.3; Monocytes % (A) 1 %; Neutrophils # (A) 1.1 k/uL (1.3-7.7); Neutrophils % (A) 72 %; Platelet Count 116 k/uL (150-450); RBC 4.26 m/uL (3.80-5.40); RDW 13.9 % (11.5-15.5); WBC 1.5 k/uL (3.8-10.6)
[2020-02-07 08:54] LABS: African American GFR (CKD) >90 (>60 ml/min/1.73 sqM); Anion Gap 9 mmol/L; Blood Urea Nitrogen 10 mg/dL (7-17); Carbon Dioxide 19 mmol/L (22-30); Chloride 108 mmol/L (98-107); Glucose 170 mg/dL (74-99); Non-African American GFR(CKD) 86 (>60 ml/min/1.73 sqM); Potassium 4.2 mmol/L (3.5-5.1); Sodium 136 mmol/L (137-145)
[2020-02-07] MEDS ORDERED: RX INFO: IV CONTRAST WAS GIVEN 1 EACH MISC MISCELLANE PRN (12:14)
--- NOTE | 2020-02-07 12:14 | P.CNPUL ---
History of Present Illness Consult date: 02/07/20 Reason for consult: pneumonia History of present illness: A pleasant 64-year-old female patient, an ex-smoker who carries more than [id number] smoking history came into the ED yesterday because of increased cough and increased shortness of breath and wheezing. His been going on for the past few days. She was seen by her primary care physician and she was given an inhaler and Zithromax without any major improvement. No reported fever. No reported chills. No chest pain. No pleurisy. No hemoptysis. She had a similar presentation back in August 2019. At that time, the patient a CAT scan of the chest that shows COPD and at the same time there was a patchy reticular and airspace disease/infiltrate in the right upper lobe. The lungs were essentially clear. There was a 1.5 cm pretracheal lymph node. The current x- ray is again showing some increased infiltration and consolidation of the right upper lobe which I think is quite strange. Unless, this is a chronic infiltrate that needs to be further investigated. For that reason, I'm recommending another CAT scan of the chest. Her current influenza screen is negative. She is known to have coronary artery disease. She is also has had gastric bypass surgery 2000 with successful weight loss. She has peripheral vascular disease and she has undergone angioplasty in both legs back in 1996 without any stenting. She also reports a remote history of clot in the right lower extremity. She has history of shingles, pernicious anemia and chronic anxiety/panic. Review of Systems Constitutional: Reports weight loss Eyes: denies as per HPI, denies blurred vision, denies bulging eye, denies decreased vision, denies diplopia, denies discharge, denies dry eye, denies irritation, denies itching, denies pain, denies photophobia, denies loss of peripheral vision, denies loss of vision, denies tunnel vision/blind spots Ears: deny: decreased hearing, ear discharge, earache, tinnitus Ears, nose, mouth and throat: Denies headache, Denies sore throat Breasts: absent: as per HPI, change in shape, gynecomastia, masses, nipple discharge, pain, skin changes, swelling Cardiovascular: Reports claudication, Reports decreased exercise tolerance Respiratory: Reports cough, Reports dyspnea, Reports wheezing Gastrointestinal: Reports as per HPI Genitourinary: Reports as per HPI Menstruation: Reports as per HPI Musculoskeletal: Reports as per HPI (Restless leg syndrome) Musculoskeletal: absent: ankle pain, ankle stiffness, ankle swelling Integumentary: Reports as per HPI Neurological: Reports as per HPI Psychiatric: Reports as per HPI, Reports anxiety Endocrine: Reports as per HPI, Reports fatigue Hematologic/Lymphatic: Reports as per HPI Allergic/Immunologic: Reports as per HPI Past Medical History Past Medical History: Deep Vein Thrombosis (DVT), GERD/Reflux, Hypertension, Myocardial Infarction ([place]), Pneumonia, Vascular Disorder Additional Past Medical History / Comment(s): Previous history of gastric bypass surgery for obesity, remote history of a right lower extremity DVT 1996, peripheral vascular disease with previous angioplasty, restless leg syndrome, iron deficiency, COPD Last Myocardial Infarction Date:: 10/2014 History of Any Multi-Drug Resistant Organisms: MRSA Date of last positivie culture/infection: 2000 MDRO Source:: wound Past Surgical History: Appendectomy, Bariatric Surgery, Breast Surgery, Cholecystectomy, Heart Catheterization, Hysterectomy, Orthopedic Surgery Additional Past Surgical History / Comment(s): Gastric bypass and subsequent multiple surgeries d/t incision did not heal properly and bowel was nicked, exploratory laparotomies, bilateral fem/pop bypass/stents, recent L wrist fracture with sx/hardware, bilateral feet bunionectomies, L rotator cuff repair, L knee arthroscopy, L breast benign bx, EGD, colonoscopies/benign polypectomy Past Anesthesia/Blood Transfusion Reactions: No Reported Reaction Smoking Status: Former smoker - Past Family History Father Family Medical History: CVA/TIA, Pneumonia Additional Family Medical History / Comment(s): STROKE AT AGE 50. Father of pne at the age of 63 yrs. Mother Family Medical History: No Reported History Additional Family Medical History / Comment(s): Mother is healthy and 83 yrs old. Medications and Allergies Home Medications Medication Instructions Recorded Confirmed Type ALPRAZolam [Xanax] 1 mg PO HS 09/25/17 02/06/20 History Estradiol [Estrace] 0.5 mg PO DAILY 09/25/17 02/06/20 History Metoprolol Succinate (ER) [Toprol 25 mg PO DAILY 09/25/17 02/06/20 History XL] Cyanocobalamin (Vitamin B-12) 1,000 mcg SQ Q14D 09/12/19 02/06/20 History [Vitamin B-12] Sertraline HCl [Zoloft] 100 mg PO DAILY 09/12/19 02/06/20 History Azithromycin [Zithromax Z-pack] See Taper PO DIRECTED 02/06/20 02/06/20 History rOPINIRole HCL [Requip] 1 mg PO HS 02/06/20 02/06/20 History Allergies Allergy/AdvReac Type Severity Reaction Status Date / Time No Known Allergies Allergy Verified 02/06/20 13:08 Physical Exam Vitals: Vital Signs Temp Pulse Pulse Resp BP BP Pulse Ox 02/07/20 11:32 72 02/07/20 11:21 72 02/07/20 07:43 72 02/07/20 07:30 68 02/07/20 07:29 68 02/07/20 07:17 64 98 02/07/20 05:01 96.3 F L 16 131/63 95 02/06/20 23:38 18 02/06/20 19:45 180/74 02/06/20 19:34 74 02/06/20 19:21 70 02/06/20 19:05 72 02/06/20 18:54 72 02/06/20 15:42 70 02/06/20 15:28 72 99 02/06/20 15:00 97.8 F 70 18 187/76 94 L 02/06/20 14:47 70 18 140/70 98 02/06/20 13:58 99.6 F 72 18 146/64 98 Intake and Output 02/06/20 02/07/20 02/07/20 22:59 06:59 14:59 Intake Total 700 590 Balance 700 590 Intake: Intake, IV Titration 700 Amount Azithromycin 500 mg In 250 Sodium Chloride 0.9% 250 ml @ 250 mls/hr IVPB DAILY@2000 VARUN Rx#: [id number] Sodium Chloride 0.9% 1, 350 000 ml @ 75 mls/hr IV . [id number] STA Rx#:[id number] cefTRIAXone 1 gm In 100 Sodium Chloride 0.9% 50 ml @ 100 mls/hr IVPB Q24H VARUN Rx#:[id number] Oral 590 Other: Voiding Method Toilet Toilet Toilet # Voids 2 2 Weight 90.9 kg The patient appeared well nourished and normally developed. Vital signs as documented. Head exam is unremarkable. No scleral icterus or corneal arcus noted. Neck is without jugular venous distension, thyromegaly, or carotid bruits. Carotid upstrokes are brisk bilaterally. Lungs are diminished breath sounds bilaterally along with some scattered rhonchi and scattered expiratory wheezes heard throughout the lung valadez bilaterally. Air entry is diminished bilaterally.. Cardiac exam reveals the PMI to be normally sized and situated. Rhythm is regular. First and second heart sounds normal. No murmurs, rubs or gallops. Abdominal exam reveals normal bowel sounds, no masses, no organomegaly and no aortic enlargement. Extremities are nonedematous and both femoral and pedal pulses are normal.Examination of the skin revealed no evidence of significant rashes, suspicious appearing nevi or other concerning lesions. Ne urologically the patient is awake and alert and there is no focal neurological deficits. Results - Laboratory Findings CBC and BMP: 02/07/20 07:36 02/07/20 07:36 PT/INR, D-dimer PT 9.4 sec (9.0-12.0) 02/06/20 11:25 INR 0.9 (<1.2) 02/06/20 11:25 D-Dimer 0.34 mg/L FEU (<0.60) 02/06/20 11:25 Abnormal lab findings: Abnormal Labs 02/06/20 02/06/20 02/06/20 11:25 11:25 19:49 WBC 2.9 L Plt Count 108 L Neutrophils # Lymphocytes # 0.5 L Sodium 135 L Chloride Carbon Dioxide Glucose 106 H POC Glucose (mg/dL) 125 H 02/07/20 02/07/20 02/07/20 07:08 07:36 07:36 WBC 1.5 L Plt Count 116 L Neutrophils # 1.1 L Lymphocytes # 0.4 L Sodium 136 L Chloride 108 H Carbon Dioxide 19 L Glucose 170 H POC Glucose (mg/dL) 162 H - Diagnostic Findings Chest x-ray: image reviewed Assessment and Plan Plan: 1 persistent versus recurrent versus chronic right upper lobe pneumonia. The patient has infiltration of the right upper lobe. Also, these abnormalities were present back in 2019 on the previous CAT scan findings. There was also 1.5 cm pretracheal lymph node. For that reason, she may need to have a follow-up CAT scan and further recommendations are to follow accordingly. 2 COPD exacerbation with secondary shortness of breath 3 leukopenia of a new onset 4 thrombocytopenia of a new onset 5 history of smoking 6 history of bariatric surgery with significant weight loss and history of pernicious anemia 7 peripheral vascular disease 8 chronic anxiety/panic 9 coronary artery disease with previous myocardial infarctions 10 history of DVT of the right lower extremity back in 1996 11 restless leg syndrome Plan continue Rocephin and Zithromax as empiric antibiotic coverage DuoNeb nebulized treatments around the clock IV Solu-Medrol CAT scan of the chest with contrast Possible bronchoscopy in the right upper lobe abnormalities persist.
[2020-02-07 12:31] LABS: Glucose,Whole Blood 161 mg/dL (75-99)
[2020-02-07] MEDS: MULTIVITAMINS, THERA 1 EACH TAB PO SCH (13:12)
[2020-02-07] MEDS: LEVOFLOXACIN 750 MG TAB PO SCH (13:12)
--- NOTE | 2020-02-07 13:57 | CT ---
EXAMINATION TYPE: CT chest w con DATE OF EXAM: 02/07/2020 COMPARISON: Chest x-ray dated 02/06/[address] dated 09/12/2019 HISTORY: Recurrent pneumonia. CT DLP: 409 mGycm. Automated Exposure Control for Dose Reduction was Utilized. TECHNIQUE: CT scan of the thorax is performed following with IV Contrast, patient injected with 100m l mL of Isovue 300. FINDINGS: LUNGS: There are numerous groundglass opacities scattered throughout the right upper lung and right m iddle lobe as well as within the anterior left upper lobe. Faint groundglass opacity in the left lung base is also seen. The most nodular component is seen in the right middle lobe measuring only 2 x 3 mm on series 4 image 39 no pleural effusion or pneumothorax. Main tracheobronchial tree is patent. MEDIASTINUM: There are no greater than 1 cm hilar or mediastinal lymph nodes. No pericardial effusi on is seen. Mild coronary artery calcifications. OTHER: Partial gastrectomy postsurgical change. Surgical clips are seen along the right inferior hepa tic lobe with ill-defined hepatic lesion on series 3 image 16 measuring approximately 3.4 cm. Irregul ar hepatic borders on the inferior margin of this mass such as on image 64 of series 3. Some motion a rtifact through the abdomen. Scarring of the right superficial subcutaneous tissues anterior to the r ight rectus abdominis. Minimal degenerative change of the spine. IMPRESSION: 1. Persistent multifocal groundglass opacities predominating in the right upper lobe, less nodular th an on the prior of 09/12/2019. Considerations are for recurrent pneumonia, inflammatory etiology, or less likely on an etiology for sarcoidosis. 2. Surgical clips around the liver margin with irregular contour and hypoattenuated 3.4 cm hepatic le tavia. Correlate with surgical history. MRI liver is recommended for further characterization.
--- NOTE | 2020-02-07 15:00 | XR ---
EXAMINATION TYPE: XR chest 2V DATE OF EXAM: 02/07/2020 COMPARISON: Prior chest x-ray dated 02/06/2020, CT chest same date HISTORY: Pneumonia TECHNIQUE: Frontal and lateral views of the chest are obtained. FINDINGS: There is improvement in aeration in the right upper lobe. No pneumothorax or pleural effus ion. No other significant interval change. IMPRESSION: Improvement in patient's pneumonia. See dictated report CT chest same day.
[2020-02-07 17:20] LABS: Glucose,Whole Blood 188 mg/dL (75-99)
[2020-02-07 20:01] LABS: Glucose,Whole Blood 147 mg/dL (75-99)
[2020-02-07] MEDS: ALPRAZolam 1 MG TAB PO SCH (20:07)
[2020-02-07] MEDS: MONTELUKAST 10 MG TAB PO SCH (20:07)
[2020-02-07 20:22] LABS: C Reactive Protein 39.2 mg/L (<10.0)
[2020-02-07] MEDS: AZITHROMYCIN 500 MG in SODIUM CHLORIDE 0.9% 250 ML IVPB SCH (20:56)
--- NOTE | 2020-02-07 22:41 | PN ---
PROGRESS NOTE DATE OF SERVICE: 02/07/2020 This 64-year-old woman who was admitted with features of COPD acute exacerbation, also possible acute right lower lobe pneumonia is being followed by Dr. Recinos. Also, the patient had a CT scan of the chest which was reviewed personally by me, showed persistent multifocal ground-glass opacities mainly in the right upper lobe, recurrent pneumonia. Inflammatory etiology was also noted. The chest x-ray which was reviewed personally by me showed some increased bronchovascular abnormalities. There is no history of fever, rigors or chills. PAST MEDICAL HISTORY: Reviewed. REVIEW OF SYMPTOMS: CARDIOVASCULAR: As mentioned earlier. RESPIRATORY: As mentioned earlier. GI: As mentioned earlier. : No dysuria. NERVOUS SYSTEMS: No numbness or weakness. CURRENT MEDICATIONS: 1. Tylenol. 2. [place] 5 mg q.6h p.r.n. 3. DuoNeb q.i.d. and p.r.n. 4. Xanax. 5. Zithromax 500 mg daily. 6. Pulmicort. 7. Rocephin 1 g daily. 8. Vitamin B12. 9. Mucinex. 10.Humalog. 11.Levaquin. 12.Solu-Medrol 60 IV q.6 hours. 13.Protonix. 14.Requip. 15.Zoloft. 16.Restoril p.r.n. PHYSICAL EXAMINATION: Patient alert and oriented x3. Pulse 71, blood pressure 173/50, respiration 16, temperature 97.8, pulse ox is 95% on room air skin: HEENT: Conjunctivae normal. Oral mucosa moist. NECK: No jugular venous distention. No lymph node enlargement. CARDIOVASCULAR: S1, S2. RESPIRATORY: Diminished breath sounds at the bases. A few scattered rhonchi and crackles. Expiratory wheezing. ABDOMEN: Soft, nontender. LEGS: No edema, no swelling. NERVOUS SYSTEM: No focal deficits. LABS: At this time shows WBC 1.2, hemoglobin is 12, and platelets are 116. Sodium 136. ASSESSMENT: 1. Chronic obstructive pulmonary disease acute exacerbation with possible right upper lobe pneumonia, multifocal, possibly gram-negative with recurrence. 2. Leukopenia and thrombocytopenia for evaluation, possibly secondary to infections, rule out hematologic abnormality, primary. 3. Hyponatremia. 4. Increased random blood sugar secondary to steroids. 5. History of deep vein thrombosis. 6. History of gastroesophageal reflux disease. 7. Hypertension. 8. History of myocardial infarction. 9. History of pneumonia. 10.History of bariatric surgery. 11.History of chronic diarrhea after surgery. 12.History of deep venous thrombosis. 13.History of restless leg syndrome. 14.History of MRSA. 15.History of cholecystectomy. 16.History of degenerative joint disease. 17.Anxiety, panic disorder. 18.Remote history of nicotine dependence. 19.Obesity with body mass index of 33.3. RECOMMENDATION THIS IS A: In this 64-year-old woman who presented with multiple complex medical issues, recommend to continue current medications, continue symptomatic treatment. Otherwise, I would recommend continue empiric antibiotics as well as IV steroids. CT scan findings were reviewed and closely follow with Dr. Recinos. The patient might be a candidate for bronchoscopy. Otherwise, we will continue to monitor. Obtain sputum cultures. I would also recommend baseline evaluation for any inflammatory pathology including sedimentation rate, MINGO and rheumatoid factor. Otherwise, continue to monitor. Allergic aspergillosis also a possibility. Further recommendations to follow. MMODL / IJN: [id number] /
[2020-02-08 02:30] LABS: Aspergillus fumagatus IgE <0.10 kU/L
[2020-02-08] MEDS: methylPREDNISolone SOD SUCCI 125 MG/2 ML VIAL IV SCH ×4 (06:04→23:17)
[2020-02-08 07:40] LABS: Glucose,Whole Blood 145 mg/dL (75-99)
[2020-02-08] MEDS: IPRATROPIUM-ALBUTEROL 3 ML NEB INHALATION SCH ×4 (08:05→19:11)
[2020-02-08] MEDS: BUDESONIDE 1 MG/2 ML NEBU INHALATION SCH ×2 (08:05→19:11)
[2020-02-08] MEDS: FORMOTEROL FUMARATE 20 MCG/2 ML NEBU INHALATION SCH ×2 (08:05→19:11)
[2020-02-08] MEDS: SERTRALINE 100 MG TAB PO SCH (09:03)
[2020-02-08] MEDS: PANTOPRAZOLE 40 MG TABLET PO SCH (09:03)
[2020-02-08] MEDS: METOPROLOL SUCCINATE (ER) 25 MG TAB.ER.24H PO SCH (09:03)
[2020-02-08] MEDS: ESTRADIOL 0.5 MG TAB PO SCH (09:03)
[2020-02-08] MEDS: HEPARIN SODIUM,PORCINE 5,000 UNIT/ML 1 ML VIAL SQ SCH ×2 (09:04→21:39)
[2020-02-08] MEDS: INSULIN ASPART (NovoLOG) 100 UNIT/ML VIAL SQ SCH ×4 (09:04→21:40)
[2020-02-08] MEDS: guaiFENesin 600 MG TABLET.ER PO SCH ×2 (09:04→21:39)
[2020-02-08 09:36] LABS: Basophils % (A) 0 %; Eosinophils % (A) 0 %; HGB 12.2 gm/dL (11.4-16.0); Lymphocytes # (A) 0.3 k/uL (1.0-4.8); Lymphocytes % (A) 5 %; MCH 28.1 pg (25.0-35.0); MCV 87.7 fL (80.0-100.0); Mean Platelet Volume 8.7; Monocytes # (A) 0.2 k/uL (0-1.0); Monocytes % (A) 2 %; Neutrophils # (A) 6.5 k/uL (1.3-7.7); Neutrophils % (A) 93 %; Platelet Count 131 k/uL (150-450); RBC 4.33 m/uL (3.80-5.40); RDW 14.3 % (11.5-15.5)
[2020-02-08 09:49] LABS: Calcium 9.4 mg/dL (8.4-10.2); Potassium 4.1 mmol/L (3.5-5.1)
[2020-02-08 11:50] LABS: Glucose,Whole Blood 138 mg/dL (75-99)
[2020-02-08] MEDS: LEVOFLOXACIN 750 MG TAB PO SCH (13:14)
[2020-02-08] MEDS: MULTIVITAMINS, THERA 1 EACH TAB PO SCH (13:14)
--- NOTE | 2020-02-08 16:54 | P.PN ---
Subjective Progress Note Date: 02/08/20 On today's evaluation the patient is feeling better. She is on room air oxygen. A repeat CAT scan of the chest was done and showed some haziness and limited groundglass changes bilaterally right more than left. Nevertheless, comparing it to the earlier CAT scans was in August 2019, findings are improved. I discussed the findings with the patient. I also discussed the possibility of doing a bronchoscopy of these abnormalities do not completely go away. She opted to do the bronchoscopy immediately to rule out any ongoing microbial growth and proceed accordingly. Based on that, and satting this patient for tomorrow bronchoscopy and the bronchioloalveolar lavage of the right upper lobe. Objective - Vital Signs Vital signs: Vital Signs Temp 97.9 F 02/08/20 05:00 Pulse 74 02/08/20 15:43 Resp 17 02/08/20 11:33 BP 146/71 02/08/20 11:33 Pulse Ox 98 02/08/20 15:30 Intake & Output 02/07/20 02/08/20 02/08/20 18:59 06:59 18:59 Intake Total 1380 Balance 1380 Intake: Oral 1380 Other: Voiding Method Toilet Toilet Toilet # Voids 2 2 3 - Exam The patient appeared well nourished and normally developed. Vital signs as documented. Head exam is unremarkable. No scleral icterus or corneal arcus noted. Neck is without jugular venous distension, thyromegaly, or carotid bruits. Carotid upstrokes are brisk bilaterally. Lungs are diminished breath sounds bilaterally along with some scattered rhonchi and scattered expiratory wheezes heard throughout the lung valadez bilaterally. Air entry is diminished bilaterally.. Cardiac exam reveals the PMI to be normally sized and situated. Rhythm is regular. First and second heart sounds normal. No murmurs, rubs or gallops. Abdominal exam reveals normal bowel sounds, no masses, no organomegaly and no aortic enlargement. Extremities are nonedematous and both femoral and pedal pulses are normal.Examination of the skin revealed no evidence of significant rashes, suspicious appearing nevi or other concerning lesions. Neurologically the patient is awake and alert and there is no focal neurological deficits. - Labs CBC & Chem 7: 02/08/20 09:06 02/08/20 09:06 Labs: Abnormal Lab Results - Last 24 Hours (Table) 0302/07/20 02/07/20 Range/Units 07:36 17:03 19:59 Plt Count (150-450) k/uL Lymphocytes # (1.0-4.8) k/uL Chloride (98-107) mmol/L Carbon Dioxide (22-30) mmol/L BUN (7-17) mg/dL Glucose (74-99) mg/dL POC Glucose (mg/dL) 188 H 147 H (75-99) mg/dL C-Reactive Protein 39.2 H (<10.0) mg/L 02/08/20 02/08/20 02/08/20 Range/Units 07:24 09:06 09:06 Plt Count 131 L (150-450) k/uL Lymphocytes # 0.3 L (1.0-4.8) k/uL Chloride 108 H (98-107) mmol/L Carbon Dioxide 19 L (22-30) mmol/L BUN 19 H (7-17) mg/dL Glucose 145 H (74-99) mg/dL POC Glucose (mg/dL) 145 H (75-99) mg/dL C-Reactive Protein (<10.0) mg/L 02/08/20 Range/Units 11:47 Plt Count (150-450) k/uL Lymphocytes # (1.0-4.8) k/uL Chloride (98-107) mmol/L Carbon Dioxide (22-30) mmol/L BUN (7-17) mg/dL Glucose (74-99) mg/dL POC Glucose (mg/dL) 138 H (75-99) mg/dL C-Reactive Protein (<10.0) mg/L Microbiology - Last 24 Hours (Table) 02/06/20 12:41 Blood Culture - Preliminary Blood No Growth after 48 hours Assessment and Plan Plan: 1 persistent versus recurrent versus chronic right upper lobe pneumonia. The patient has infiltration of the right upper lobe. Also, these abnormalities were present back in 2019 on the previous CAT scan findings. There was also 1.5 cm pretracheal lymph node. For that reason, she may need to have a follow-up CAT scan was done and the results were noted 2 COPD exacerbation with secondary shortness of breath 3 leukopenia of a new onset 4 thrombocytopenia of a new onset 5 history of smoking 6 history of bariatric surgery with significant weight loss and history of pernicious anemia 7 peripheral vascular disease 8 chronic anxiety/panic 9 coronary artery disease with previous myocardial infarctions 10 history of DVT of the right lower extremity back in 1996 11 restless leg syndrome Plan The repeat CAT scan of the chest was done. There is still some hazy ground glass changes bilateral lower lobe improved compared to the previous CAT scan from August 2019. I'm going to proceed with a bronchoscopy and BAL to rule out any microbial growth. We'll do also bilateral and bacterial cultures and atypical mycobacterial cultures. Check MINGO, rheumatoid factor, sed rate, Rhett levels. continue Rocephin and Zithromax as empiric antibiotic coverage DuoNeb nebulized treatments around the clock IV Solu-Medrol CAT scan of the chest with contrast
[2020-02-08 17:33] LABS: Glucose,Whole Blood 146 mg/dL (75-99)
[2020-02-08] MEDS: AZITHROMYCIN 500 MG in SODIUM CHLORIDE 0.9% 250 ML IVPB SCH (19:29)
--- NOTE | 2020-02-08 19:35 | PN ---
PROGRESS NOTE DATE OF SERVICE: 02/08/2020 This 64-year-old woman was admitted with COPD acute exacerbation also had leukopenia. Dr. Recinos is following the patient closely. The patient had a chest CT and chest x- ray also. The patient was suspected of recurrent right upper lobe pneumonia. Follow up CT scan as an outpatient recommended. Aspergillus antibody immunoglobulin has been sent. No chest pain. No palpitations. The patient also had some diarrhea related to her bariatric surgery. EXAM: Alert and oriented times three. Pulse 74, blood pressure 140/70, respirations 17, temperature is normal, pulse ox 98% on room air. HEENT is conjunctivae normal. NECK: No JVD. CARDIOVASCULAR: S1, S2 muffled. RESPIRATIONS: Breath sounds diminished in the bases. Bilateral scattered rhonchi and crackles. ABDOMEN is soft, nontender. LEGS are no edema. No swelling. CENTRAL NERVOUS SYSTEM: No focal deficits. LABS: WBC 7, hemoglobin 12.4, platelets 131. Sodium 130, potassium 4.1. ASSESSMENT: 1. Chronic obstructive pulmonary disease acute exacerbation with possible right upper lobe pneumonia, multifocal, possibly gram-negative with recurrence. 2. Leukopenia, thrombocytopenia for evaluation, possibly secondary to infection, rule out hematology abnormality primary. 3. Hyponatremia. 4. Increased random blood sugar secondary to steroids. 5. History of deep vein thrombosis. 6. History of gastroesophageal reflux disease. 7. Hypertension. 8. History of myocardial infarction. 9. History of pneumonia. 10.History of bariatric surgery. 11.History of chronic diarrhea after surgery. 12.History of deep vein thrombosis. 13.History of restless legs syndrome. 14.History of MRSA. 15.History of cholecystectomy. 16.History of degenerative joint disease. 17.Anxiety, panic disorder. 18.Remote history of nicotine dependence. 19.Obesity with body mass index of 33.3. RECOMMENDATIONS AND DISCUSSION: Recommend to continue current medications, management and symptomatic treatment. Continue the bronchodilators. Dr. Recinos is planning bronchoscopy and BAL and microbiology and rheumatoid factor. Rhett level has also been requested along with vasculitis and Aspergillus IgG antibodies. The IgE level was only 34.3 and MINGO was negative. Rheumatoid factor is only 11. Influenza is negative. Aspergillus IgE was less than 1.1. Once again, the prognosis is guarded because of multiple complex medical issues. Further recommendations to follow. MMODL / IJN: [id number] /
[2020-02-08 20:26] LABS: Glucose,Whole Blood 176 mg/dL (75-99)
[2020-02-08] MEDS: MONTELUKAST 10 MG TAB PO SCH (21:39)
[2020-02-08] MEDS: ALPRAZolam 1 MG TAB PO SCH (21:39)
[2020-02-09] MEDS: methylPREDNISolone SOD SUCCI 125 MG/2 ML VIAL IV SCH ×4 (06:06→23:15)
[2020-02-09 07:10] LABS: Glucose,Whole Blood 138 mg/dL (75-99)
[2020-02-09] MEDS: INSULIN ASPART (NovoLOG) 100 UNIT/ML VIAL SQ SCH ×4 (07:18→20:36)
[2020-02-09] MEDS: FORMOTEROL FUMARATE 20 MCG/2 ML NEBU INHALATION SCH ×2 (07:45→19:39)
[2020-02-09] MEDS: IPRATROPIUM-ALBUTEROL 3 ML NEB INHALATION SCH ×4 (07:45→19:39)
[2020-02-09] MEDS: BUDESONIDE 1 MG/2 ML NEBU INHALATION SCH ×2 (07:45→19:39)
[2020-02-09] MEDS: METOPROLOL SUCCINATE (ER) 25 MG TAB.ER.24H PO SCH (08:15)
[2020-02-09 09:08] LABS: Basophils % (A) 0 %; Eosinophils % (A) 0 %; HCT 37.3 % (34.0-46.0); HGB 11.9 gm/dL (11.4-16.0); Lymphocytes # (A) 0.4 k/uL (1.0-4.8); Lymphocytes % (A) 7 %; MCH 27.8 pg (25.0-35.0); MCV 86.8 fL (80.0-100.0); Mean Platelet Volume 8.8; Monocytes # (A) 0.1 k/uL (0-1.0); Monocytes % (A) 2 %; Neutrophils # (A) 5.2 k/uL (1.3-7.7); Neutrophils % (A) 91 %; Platelet Count 136 k/uL (150-450); RDW 14.3 % (11.5-15.5); WBC 5.7 k/uL (3.8-10.6)
[2020-02-09 09:18] LABS: Calcium 8.8 mg/dL (8.4-10.2); Potassium 3.8 mmol/L (3.5-5.1)
[2020-02-09 11:28] LABS: Glucose,Whole Blood 141 mg/dL (75-99)
[2020-02-09] MEDS: MULTIVITAMINS, THERA 1 EACH TAB PO SCH (12:48)
[2020-02-09] MEDS: HEPARIN SODIUM,PORCINE 5,000 UNIT/ML 1 ML VIAL SQ SCH ×2 (12:48→20:57)
[2020-02-09] MEDS: PANTOPRAZOLE 40 MG TABLET PO SCH (12:48)
[2020-02-09] MEDS: guaiFENesin 600 MG TABLET.ER PO SCH ×2 (12:48→20:57)
[2020-02-09] MEDS ORDERED: LIDOCAINE 1% INJ 10MG/ML (20 ML MDV) ONE (13:10)
[2020-02-09] MEDS ORDERED: PROPOFOL 10 MG/ML 20 ML VIAL IV ONE (13:10)
[2020-02-09] MEDS ORDERED: KETAMINE 10 MG/ML 20 ML VIAL ONE (13:10)
[2020-02-09] MEDS ORDERED: MIDAZOLAM 2 MG/2 ML VIAL ONE (13:10)
[2020-02-09] MEDS ORDERED: IV FLUID CONTINUATION 1,000 ML IV ONE (13:10)
[2020-02-09] MEDS ORDERED: LIDOCAINE 2% INJ 20 MG/ML INTRATRACH ONE ×2 (13:15→13:33)
--- NOTE | 2020-02-09 14:35 | P.PCN ---
Date of Procedure: 02/09/20 Preoperative Diagnosis: Right upper lobe pneumonia Postoperative Diagnosis: Right upper lobe pneumonia Procedure(s) Performed: Flexible bronchoscopy, BAL of the right upper lobe Surgeon: Gerber Recinos Estimated Blood Loss (ml): 0 Pathology: none sent Condition: stable Disposition: floor Operative Findings: This procedure was done in the endoscopy suite. A consent and a timeout was obtained After achieving a adequate sedation, the flexible bronchoscope was inserted through the right nostril. We did encounter some epistaxis and the bronchoscope was removed and pressure was applied. Following that, the bleeding was controlled and the bronchoscope was introduced through the left nostril. [place] of the posterior oropharynx larynx is normal limits. Arytenoids and the vocal cords were identified and the respective in no acute abnormalities were noted. A total of 2 mL of, and was applied to the vocal cords and following that the bronchoscope was introduced into the upper trachea. Examination of the tracheal bronchial tree was done. Trachea, bilateral mainstem bronchi, right upper lobe bronchus, bronchus intermedius, right middle lobe bronchus, right lower lobe bronchus, left mainstem bronchus, left upper lobe bronchus and left lower lobe bronchus and the various segments and subsegments were all patent and within normal limits. The bronchoscope was then moved to the anterior segment of the right upper lobe BAL was done. A total of 80 L of fluid was infused and 20 mL was aspirated. The procedure was completed.. Therapeutic airway suctioning was done. Bronchoscope was removed and the patient was transferred back to room in a stable condition. BAL was sent for microbial analysis. Note that there was no evidence of any endobronchial lesions or abnormalities lower airway inspection. Some looseness for secretions were encountered and were suctioned out. No foreign bodies.
--- NOTE | 2020-02-09 15:19 | P.PN ---
Subjective Progress Note Date: 02/09/20 Evaluation of the 02/08/2020 patient is feeling well. She is on room air oxygen. She was to proceed with a bronchoscopy regarding the ongoing pulmonary patient was discussed and there Is aware that the physician is completely recovered and for that reason we decided to proceed with bronchoscopy and the BAL of the right upper lobe. No respiratory difficulties. No significant cough sputum production chest that is so wheezing. No altered mentation. No hemoptysis. She remains on a combination of Rocephin and Zithromax. He is on IV Solu-Medrol. Objective - Vital Signs Vital signs: Vital Signs Temp 98.9 F 02/09/20 05:00 Pulse 62 02/09/20 12:07 Resp 16 02/09/20 12:07 BP 169/82 02/09/20 05:00 Pulse Ox 97 02/09/20 07:48 Intake & Output 02/08/20 02/09/20 02/09/20 18:59 06:59 18:59 Intake Total 890 500 Balance 890 500 Intake: IV 500 Intake, IV Titration 300 Amount Azithromycin 500 mg In 250 Sodium Chloride 0.9% 250 ml @ 250 mls/hr IVPB DAILY@2000 VARUN Rx#: [id number] cefTRIAXone 1 gm In 50 Sodium Chloride 0.9% 50 ml @ 100 mls/hr IVPB Q24H VARUN Rx#:[id number] Oral 590 Other: Voiding Method Toilet Toilet # Voids 3 1 2 - Exam The patient appeared well nourished and normally developed. Vital signs as documented. Head exam is unremarkable. No scleral icterus or corneal arcus noted. Neck is without jugular venous distension, thyromegaly, or carotid bruits. Carotid upstrokes are brisk bilaterally. Lungs are diminished breath sounds bilaterally along with some scattered rhonchi and scattered expiratory wheezes heard throughout the lung valadez bilaterally. Air entry is diminished bilaterally.. Cardiac exam reveals the PMI to be normally sized and situated. Rhythm is regular. First and second heart sounds normal. No murmurs, rubs or gal lops. Abdominal exam reveals normal bowel sounds, no masses, no organomegaly and no aortic enlargement. Extremities are nonedematous and both femoral and pedal pulses are normal.Examination of the skin revealed no evidence of significant rashes, suspicious appearing nevi or other concerning lesions. Neurologically the patient is awake and alert and there is no focal neurological deficits. - Labs CBC & Chem 7: 02/09/20 08:12 02/09/20 08:12 Labs: Abnormal Lab Results - Last 24 Hours (Table) 02/08/20 02/08/20 02/09/20 Range/Units 17:18 20:24 07:08 Plt Count (150-450) k/uL Lymphocytes # (1.0-4.8) k/uL Chloride (98-107) mmol/L BUN (7-17) mg/dL Glucose (74-99) mg/dL POC Glucose (mg/dL) 146 H 176 H 138 H (75-99) mg/dL 02/09/20 02/09/20 02/09/20 Range/Units 08:12 08:12 11:26 Plt Count 136 L (150-450) k/uL Lymphocytes # 0.4 L (1.0-4.8) k/uL Chloride 108 H (98-107) mmol/L BUN 23 H (7-17) mg/dL Glucose 132 H (74-99) mg/dL POC Glucose (mg/dL) 141 H (75-99) mg/dL Microbiology - Last 24 Hours (Table) 02/06/20 12:41 Blood Culture - Preliminary Blood No Growth after 72 hours Assessment and Plan Plan: 1 persistent versus recurrent versus chronic right upper lobe pneumonia. The patient has infiltration of the right upper lobe. Also, these abnormalities were present back in 2019 on the previous CAT scan findings. There was also 1.5 cm pretracheal lymph node. For that reason, she may need to have a follow-up CAT scan was done and the results were noted 2 COPD exacerbation with secondary shortness of breath 3 leukopenia of a new onset 4 thrombocytopenia of a new onset 5 history of smoking 6 history of bariatric surgery with significant weight loss and history of pernicious anemia 7 peripheral vascular disease 8 chronic anxiety/panic 9 coronary artery disease with previous myocardial infarctions 10 history of DVT of the right lower extremity back in 1996 11 restless leg syndrome Plan The patient is post bronchoscopy, right upper lobe lavage was done and the samples were sent for microbial cultures and analysis. Continue same antibiotic coverage and steroids. MINGO was negative. Rheumatoid factor was negative. Serum IgE is not elevated. The patient will be seeing infectious disease. I'm going to repeat a chest x-ray tomorrow. Her white cell count is improved. Also noted that the patient is having cyclic drop in her white cell count. I'm wondering whether the patient is having cyclic neutropenia causing this infections.
[2020-02-09] MEDS: ESTRADIOL 0.5 MG TAB PO SCH (15:47)
[2020-02-09] MEDS: SERTRALINE 100 MG TAB PO SCH (15:47)
[2020-02-09] MEDS: LEVOFLOXACIN 750 MG TAB PO SCH (15:47)
[2020-02-09 16:51] LABS: Glucose,Whole Blood 195 mg/dL (75-99)
[2020-02-09 18:55] LABS: Color,BF Pink
[2020-02-09 18:56] LABS: Appearance,BF Hazy; Nucleated Cells, Body Fluid 950 /uL; RBC, Body Fluid 11500 /uL
[2020-02-09 19:31] LABS: Mononuclear WBC,Body Fluid 53 %; Polynuclear WBC,Body Fluid 47 %; Total Cells Counted,Body Fluid 100
--- NOTE | 2020-02-09 19:34 | PN ---
PROGRESS NOTE DATE OF SERVICE: 02/09/2020 This 64-year-old woman who was admitted with COPD, acute exacerbation, also had acute purulent tracheobronchitis. She also had some leukopenia and thrombocytopenia. The patient underwent bronchoscopy today by Dr. Recinos. BAL of the right upper lobe was done. No chest pain. No palpitation. PHYSICAL EXAMINATION: Alert and oriented x3. Pulse 66, blood pressure 116/82, respiration 20, temperature 98 degrees, pulse ox 97% on room air. HEENT: Conjunctivae normal. NECK: No jugular venous distention. CARDIOVASCULAR SYSTEM: S1, S2 muffled. RESPIRATORY SYSTEM: Breath sounds diminished at the bases. A few scattered rhonchi and crackles. ABDOMEN: Soft, non-tender. LEGS: No edema. No swelling. NERVOUS SYSTEM: No focal deficit. LABS: WBC 5.6, hemoglobin 11.9. Sodium 139, potassium 3.8. ASSESSMENT: 1. Chronic obstructive pulmonary disease, acute exacerbation, with possible recurrent right upper lobe pneumonia, multifocal, possibly Gram-negative, status post bronchoscopy and bronchoalveolar lavage. 2. Leukopenia, thrombocytopenia. Evaluation is process. Possibly secondary to infections. Rule out primary hematological abnormality. 3. Hyponatremia. 4. Increased random blood sugar secondary to steroids. 5. History of deep vein thrombosis. 6. History of gastroesophageal reflux disease. 7. Hypertension. 8. History of myocardial infarction. 9. History of pneumonia. 10.History of bariatric surgery. 11.History of chronic diarrhea after surgery. 12.History of restless legs syndrome. 13.History of methicillin-resistant Staphylococcus aeruginosa. 14.History of cholecystectomy. 15.Degenerative joint disease. 16.History of anxiety, panic disorder. 17.Remote history of nicotine dependence. 18.Obesity with body mass index of 33.3. RECOMMENDATIONS AND DISCUSSION: I recommend to continue current medications, continue with the monitoring, symptomatic treatment. I recommend continuing the bronchodilators, steroids, antibiotics. Follow the bronchoscopic cultures. Otherwise, please see infectious disease and pulmonology notes also. Further recommendations to follow. MMODL / IJN: [id number] /
[2020-02-09 20:17] LABS: Glucose,Whole Blood 128 mg/dL (75-99)
[2020-02-09] MEDS: AZITHROMYCIN 500 MG in SODIUM CHLORIDE 0.9% 250 ML IVPB SCH (20:57)
[2020-02-09] MEDS: ALPRAZolam 1 MG TAB PO SCH (20:57)
[2020-02-09] MEDS: MONTELUKAST 10 MG TAB PO SCH (20:57)
[2020-02-09 22:10] LABS: Glucose,Whole Blood 186 mg/dL (75-99)
[2020-02-10] MEDS: methylPREDNISolone SOD SUCCI 125 MG/2 ML VIAL IV SCH ×4 (06:21→23:49)
[2020-02-10 07:03] LABS: Glucose,Whole Blood 124 mg/dL (75-99)
--- NOTE | 2020-02-10 08:29 | CONS ---
CONSULTATION DATE OF SERVICE: 02/09/2020 REASON FOR CONSULTATION: Patient thinks she has coronavirus. HISTORY OF PRESENT ILLNESS: Patient is a 64-year-old, female presenting to the ER at [facility] on February 06, 2020 with the chief complaints of cough. The patient states this has been going on for a few days before she came into the hospital approximately a week. Apparently, the patient was started treating in the outpatient setting and treated with inhaler and azithromycin without much improvement. The patient has been complaining of cough, there has been more drainage. The patient did not bring up any sputum. The patient also complaining of increasing shortness of breath, but no chest pain. No fever. No nausea, no vomiting. No abdominal pain. No choking on food and no diarrhea. With these symptoms the patient has been evaluated by the ER physician. On arrival to the ER, the patient has been afebrile. The patient did have slight leukopenia that subsequently resolved and did have a normal white count now. The patient did that has been negative. The patient's chest x-ray on admission shows right upper lobe infiltrate. Patient did have a CT of the chest persistent multifocal ground-glass opacity in the right upper lobe. Patient did have a bronchoscopy completed this morning, did not show any structure abnormality or significant purulent changes. Culture has been obtained which is currently pending. The patient has been concerned that she may have coronavirus for which I would rather see the patient for further evaluation. Patient with no fever during this admission and no history of any travel or sick contact. REVIEW OF SYSTEMS: Positive points have been mentioned in HPI. Rest of systems negative. PAST MEDICAL HISTORY: DVT, [place], pneumonia, anxiety, shingles, right MRSA abdominal wound infection. PAST SURGICAL HISTORY: Appendectomy, bariatric surgery, cholecystectomy, hysterectomy, femoral-popliteal bypass. SOCIAL HISTORY: Remote history of smoking. Rarely drinks. No drug use. FAMILY HISTORY: Father with history of CVA, TIA. ALLERGIES: No known drug allergies. MEDICATIONS: The patient is currently on Tylenol, [place], DuoNeb, Xanax, Erythromycin, Rocephin, Estrace, Mucinex, heparin, NovoLog, Levaquin, Solu-Medrol, Singulair, Protonix, Requip, Zoloft, and Restoril. PHYSICAL EXAMINATION: Blood pressure is 169/82 with a pulse of 66, temperature 98.9. He is 96% on room air. General description is an elderly female, up in the chair in no distress. No tachypnea or accessory muscle for respiration use. HEENT: Shows no pallor or scleral icterus. Oral mucosa is dry. No thrush. NECK: Trachea central, no thyromegaly. LUNGS: Unlabored breathing, decreased breath sounds in the base, with no significant wheeze. HEART: S1, S2. Regular rate and rhythm. ABDOMEN: Soft, no tenderness. EXTREMITIES: No edema of the feet. SKIN: Examination no rash or mass palpable. NEUROLOGIC: The patient is awake, alert, oriented x3. No focal deficits. LABS: Hemoglobin is 11.1, white count of 5.7, BUN of 23, creatinine 0.18, endocrine has been normal. Influenza serology has been negative. Bronchial wash mostly RBC neutrophils are 950. Blood culture negative. Bronch cultures currently pending. CT report as mentioned above. DIAGNOSTIC IMPRESSION AND PLAN: Patient admitted to the hospital with increased shortness of breath and cough with evidence of upper lobe culture for possible pneumonitis, possible bacterial causes viral clinically. The patient is has low for coronavirus in this patient with no travel history and abscess of fever and she had been here in the hospital for almost 5 days now. PLAN: 1. Will wait for the bronchoscopy culture to finalize. 2. Keep the patient on Rocephin 1 g daily and Levaquin; however, discontinue Zithromax. 3. Will follow up on clinical condition and culture to further adjust medication if needed. Thank you for this consultation. Will follow this patient with you. MMODL / IJN: [id number] /
[2020-02-10] MEDS: BUDESONIDE 1 MG/2 ML NEBU INHALATION SCH ×2 (09:04→21:47)
[2020-02-10] MEDS: IPRATROPIUM-ALBUTEROL 3 ML NEB INHALATION SCH ×4 (09:04→21:47)
[2020-02-10] MEDS: FORMOTEROL FUMARATE 20 MCG/2 ML NEBU INHALATION SCH ×2 (09:04→21:47)
[2020-02-10] MEDS: INSULIN ASPART (NovoLOG) 100 UNIT/ML VIAL SQ SCH ×4 (09:30→21:06)
[2020-02-10] MEDS: LEVOFLOXACIN 750 MG TAB PO SCH (10:01)
[2020-02-10] MEDS: ESTRADIOL 0.5 MG TAB PO SCH (10:02)
[2020-02-10] MEDS: guaiFENesin 600 MG TABLET.ER PO SCH ×2 (10:02→21:06)
[2020-02-10] MEDS: PANTOPRAZOLE 40 MG TABLET PO SCH (10:02)
[2020-02-10] MEDS: SERTRALINE 100 MG TAB PO SCH (10:03)
[2020-02-10] MEDS: MULTIVITAMINS, THERA 1 EACH TAB PO SCH (10:03)
[2020-02-10] MEDS: METOPROLOL SUCCINATE (ER) 25 MG TAB.ER.24H PO SCH (10:03)
[2020-02-10] MEDS: HEPARIN SODIUM,PORCINE 5,000 UNIT/ML 1 ML VIAL SQ SCH ×2 (10:03→21:06)
[2020-02-10 11:07] LABS: Glucose,Whole Blood 184 mg/dL (75-99)
[2020-02-10] MEDS ORDERED: guaiFENesin-Coden 100-10MG/5ML 10 ML CUP PO PRN (12:19)
--- NOTE | 2020-02-10 13:20 | P.PN ---
Subjective Progress Note Date: 02/10/20 On 02/10/2020 patient seen in follow-up on the general medical oncology floor, clinically stable, but she states she does not feel any better, but states her breathing has improved, she still has some coughing, and her cough is nonproductive, she feels like there is some phlegm that she cannot clear, and she has some chest soreness from coughing. She is on room air with a pulse ox of 97%, hemodynamically stable, lung sounds reveal diminished breath sounds with minimal wheezes, afebrile, patient remains on IV steroids and breathing treatments, a combination of Rocephin and Levaquin for antibiotic coverage, she status post bronchoscopy with bronchial alveolar lavage, and Gram stain shows no organisms, final cultures pending. Blood cultures have been negative, no fever or chills, Objective - Vital Signs Vital signs: Vital Signs Temp 98.0 F 02/10/20 05:00 Pulse 68 02/10/20 09:30 Resp 18 02/10/20 08:00 BP 125/70 02/10/20 05:00 Pulse Ox 97 02/10/20 05:00 Intake & Output 02/09/20 02/10/20 02/10/20 18:59 06:59 18:59 Intake Total 500 240 Balance 500 240 Intake: IV 500 Oral 240 Other: Voiding Method Toilet Toilet # Voids 2 1 3 - Exam GENERAL EXAM: Alert, pleasant, 64-year-old female, on room air, comfortable in no apparent distress. HEAD: Normocephalic/atraumatic. EYES: Normal reaction of pupils, equal size. Conjunctiva pink, sclera white. NOSE: Clear with pink turbinates. THROAT: No erythema or exudates. NECK: No masses, no JVD, no thyroid enlargement, no adenopathy. CHEST: No chest wall deformity. Symmetrical expansion. LUNGS: Equal air entry with minimal crackles and wheezes CVS: Regular rate and rhythm, normal S1 and S2, no gallops, no murmurs, no rubs ABDOMEN: Soft, nontender. No hepatosplenomegaly, normal bowel sounds, no guarding or rigidity. EXTREMITIES: No clubbing, no edema, no cyanosis, 2+ pulses and upper and lower extremities. MUSCULOSKELETAL: Muscle strength and tone normal. SPINE: No scoliosis or deformity SKIN: No rashes CENTRAL NERVOUS SYSTEM: Alert and oriented -3. No focal deficits, tone is normal in all 4 extremities. PSYCHIATRIC: Alert and oriented -3. Appropriate affect. Intact judgment and insight. - Labs CBC & Chem 7: 02/09/20 08:12 02/09/20 08:12 Labs: Abnormal Lab Results - Last 24 Hours (Table) 02/09/20 02/09/20 02/09/20 Range/Units 16:50 20:16 22:06 POC Glucose (mg/dL) 195 H 128 H 186 H (75-99) mg/dL 02/10/20 02/10/20 Range/Units 07:01 11:05 POC Glucose (mg/dL) 124 H 184 H (75-99) mg/dL Microbiology - Last 24 Hours (Table) 02/09/20 13:40 Gram Stain - Preliminary Bronchial Washings - Right Bronchial Washings Culture - Preliminary 02/09/20 13:40 Acid Fast Bacilli Culture - Preliminary Bronchial Washings - Right 02/09/20 13:40 Fungal Culture - Preliminary Bronchial Washings - Right 02/06/20 12:41 Blood Culture - Preliminary Blood No Growth after 72 hours Assessment and Plan Plan: Assessment: 1 persistent versus recurrent versus chronic right upper lobe pneumonia. The patient has infiltration of the right upper lobe. Also, these abnormalities were present back in 2019 on the previous CAT scan findings. There was also 1.5 cm pretracheal lymph node. For that reason, she may need to have a follow-up CAT scan was done and the results were noted 2 COPD exacerbation with secondary shortness of breath 3 leukopenia of a new onset 4 thrombocytopenia of a new onset 5 history of smoking 6 history of bariatric surgery with significant weight loss and history of pernicious anemia 7 peripheral vascular disease 8 chronic anxiety/panic 9 coronary artery disease with previous myocardial infarctions 10 history of DVT of the right lower extremity back in 1996 11 restless leg syndrome 12 history of MRSA infection in the abdominal wound 13 history of malabsorption syndrome following bariatric surgery with B12 and iron Plan: Continue current medical treatment, awaiting results of the broad lavage cultures, so far Gram stain shows no organisms, vital signs are stable, patient is on room air, still complaining of coughing fits, continue same dose IV steroids, fever or chills, clinical stable, increase activity as tolerated, we'll continue to follow I performed a history & physical examination of the patient and discussed their management with my nurse practitioner, Shikha Altman. I reviewed the nurse practitioner's note and agree with the documented findings and plan of care. Lung sounds are positive for slight wheezes and crackles. The findings and the impression was discussed with the patient. I attest to the documentation by the nurse practitioner. Time with Patient: Less than 30
[2020-02-10 17:25] LABS: Glucose,Whole Blood 142 mg/dL (75-99)
[2020-02-10 19:24] LABS: Glucose,Whole Blood 197 mg/dL (75-99)
--- NOTE | 2020-02-10 19:54 | PN ---
PROGRESS NOTE DATE OF SERVICE: 02/10/2020 This 64-year-old woman who was admitted with COPD, acute exacerbation, acute purulent tracheobronchitis and possibly right upper lobe pneumonia, recurrent, is being closely monitored. Dr. Recinos performed a bronchoscopy. Please refer to Dr. Recinos's notes for further information. The patient is on broad-spectrum IV antibiotics and steroids. Dr. Recinos has performed a bronchoscopy and the bronchoscopy cytology is reported as showing only reactive lining cells and macrophages. The cultures are negative so far. No chest pain. No palpitation. REVIEW OF SYSTEMS: CARDIOVASCULAR SYSTEM: No angina, palpitations. RESPIRATORY SYSTEM: As mentioned earlier. GI: As mentioned earlier. : No dysuria or retention. NERVOUS SYSTEM: No numbness, weakness. CURRENT MEDICATIONS: 1. Tylenol 2. [place] 5 mg daily. 3. DuoNeb q.i.d. and p.r.n. 4. Xanax. 5. Pulmicort. 6. Rocephin. 7. Vitamin B12. 8. Estrace. 9. Mucinex. 10.Heparin. 11.Levaquin. 12.Solu-Medrol. 13.Multivitamins. 14.Protonix. 15.Requip. 16.Zoloft. 17.Restoril. Doses are reviewed. PHYSICAL EXAMINATION: Alert and oriented x3. Pulse 69, blood pressure 125/70, respiration 18, temperature 98 degrees, pulse ox 97% on room air. HEENT: Conjunctivae normal. NECK: No jugular venous distention. CARDIOVASCULAR SYSTEM: S1, S2 muffled. RESPIRATORY SYSTEM: Breath sounds diminished at the bases. A few scattered rhonchi. No crackles. HEENT: ABDOMEN: Soft, non-tender. No mass palpable. LEGS: No edema. No swelling. NERVOUS SYSTEM: No focal deficit. LABS: Glucose 197; it was 124. ASSESSMENT: 1. Chronic obstructive pulmonary disease, acute exacerbation, with possible recurrent right upper lobe pneumonia, multifocal, possibly Gram-negative, status post bronchoscopy and bronchoalveolar lavage. 2. Leukopenia, thrombocytopenia under evaluation, possibly secondary to viral infection. Rule out primary hematological abnormality. 3. Hyponatremia. 4. Increased random blood sugar secondary to steroids. 5. History of deep venous thrombosis. 6. History of gastroesophageal reflux disease. 7. Hypertension. 8. History of myocardial infarction. 9. History of pneumonia. 10.History of bariatric surgery. 11.History of chronic diarrhea after surgery. 12.History of restless legs syndrome. 13.History of methicillin-resistant Staphylococcus aeruginosa. 14.History of cholecystectomy. 15.History of degenerative joint disease. 16.History of anxiety, panic disorder. 17.Remote history of nicotine dependence. 18.Obesity with body mass index of 33.3. RECOMMENDATIONS AND DISCUSSION: I recommend to continue current medications, continue with the monitoring, symptomatic treatment. Otherwise at this time I would continue with the antibiotics, bronchodilators, steroids. Guarded prognosis because of multiple complex medical issues. Cultures are negative so far. Further recommendations to follow. Once again, the prognosis is guarded because of multiple complex medical issues. Further recommendations to follow. MMODL / IJN: [id number] / VASILIY
[2020-02-10] MEDS: ALPRAZolam 1 MG TAB PO SCH (21:06)
[2020-02-10] MEDS: MONTELUKAST 10 MG TAB PO SCH (21:07)
--- NOTE | 2020-02-10 23:52 | PN ---
PROGRESS NOTE DATE OF SERVICE: 02/10/2020 REASON FOR FOLLOWUP: Possible tracheobronchitis. INTERVAL HISTORY: The patient is currently afebrile. She is still complaining of not feeling well. Shortness of breath though she is currently saturating 96% on room air. Continued complaining of cough but not bringing up any sputum. No nausea, vomiting. No abdominal pain. No diarrhea. PHYSICAL EXAMINATION: Blood pressure is 167/77 with a pulse of 59. Temperature 97. She is 93% on room air. General description is an elderly female lying in bed in no distress. Respiratory system: Unlabored breathing, clear to auscultation. No wheeze. Heart S1, S2. Regular rate and rhythm. Abdomen soft, no tenderness. LAB: Hemoglobin 11.1, white count 5.7, BUN of 23, creatinine 0.89. Bronchoscopy cultures so far negative. DIAGNOSTIC IMPRESSION AND PLAN: Patient with chronic obstructive pulmonary disease exacerbation, possible tracheobronchitis clinically not behaving as pneumonia. The patient is currently covered with Rocephin and Azithromycin to continue along with steroid and bronchodilator per pulmonary. Continue supportive care. MMODL / IJN: [id number] /
[2020-02-11] MEDS: methylPREDNISolone SOD SUCCI 125 MG/2 ML VIAL IV SCH ×2 (05:48→09:39)
[2020-02-11] MEDS: ALPRAZolam 0.25 MG TAB PO PRN ×2 (05:52→11:57)
[2020-02-11 07:00] LABS: Glucose,Whole Blood 159 mg/dL (75-99)
[2020-02-11] MEDS: FORMOTEROL FUMARATE 20 MCG/2 ML NEBU INHALATION SCH ×2 (07:34→19:36)
[2020-02-11] MEDS: IPRATROPIUM-ALBUTEROL 3 ML NEB INHALATION SCH ×4 (07:34→19:36)
[2020-02-11] MEDS: BUDESONIDE 1 MG/2 ML NEBU INHALATION SCH ×2 (07:34→19:36)
[2020-02-11] MEDS: guaiFENesin 600 MG TABLET.ER PO SCH ×2 (09:38→20:51)
[2020-02-11] MEDS: INSULIN ASPART (NovoLOG) 100 UNIT/ML VIAL SQ SCH ×4 (09:39→20:51)
[2020-02-11] MEDS: SERTRALINE 100 MG TAB PO SCH (09:40)
[2020-02-11] MEDS: LEVOFLOXACIN 750 MG TAB PO SCH (09:40)
[2020-02-11] MEDS: PANTOPRAZOLE 40 MG TABLET PO SCH (09:40)
[2020-02-11] MEDS: MULTIVITAMINS, THERA 1 EACH TAB PO SCH (09:41)
[2020-02-11] MEDS: METOPROLOL SUCCINATE (ER) 25 MG TAB.ER.24H PO SCH (09:41)
[2020-02-11] MEDS: ESTRADIOL 0.5 MG TAB PO SCH (09:41)
[2020-02-11] MEDS: HEPARIN SODIUM,PORCINE 5,000 UNIT/ML 1 ML VIAL SQ SCH ×2 (09:41→20:51)
[2020-02-11 11:34] LABS: Glucose,Whole Blood 105 mg/dL (75-99)
--- NOTE | 2020-02-11 15:19 | XR ---
EXAMINATION TYPE: XR chest 2V DATE OF EXAM: 02/11/2020 COMPARISON: 02/07/2020 chest x-ray and CT HISTORY: Cough and congestion. History of right upper lobe pneumonia. TECHNIQUE: Frontal and lateral views of the chest are obtained. FINDINGS: There is no focal air space opacity, pleural effusion, or pneumothorax seen. The cardiac silhouette size is stable. The osseous structures are intact. IMPRESSION: The groundglass opacity seen on CT are better visualized on CT rather than chest x-ray. On x-ray no focal consolidation is seen.
[2020-02-11] MEDS: BENZOCAINE/MENTHOL LOZENG 1 EACH LOZENGE MUCOUS MEM PRN ×2 (16:47→20:58)
[2020-02-11 17:00] LABS: Glucose,Whole Blood 123 mg/dL (75-99)
--- NOTE | 2020-02-11 17:03 | P.PN ---
Subjective Progress Note Date: 02/11/20 On 02/11/2020 the patient is feeling well. No new complaints to bronchoscopy was done. The BAL was negative for any microbial growth. The follow-up chest x-ray was done today and shows clearing of the right upper lobe groundglass changes. No other new complaints otherwise for now. White cell count is improved. Platelet count is improved. Objective - Vital Signs Vital signs: Vital Signs Temp 97.6 F 02/11/20 12:36 Pulse 75 02/11/20 15:50 Resp 22 02/11/20 15:41 BP 177/78 02/11/20 12:36 Pulse Ox 97 02/11/20 12:36 Intake & Output 02/10/20 02/11/20 02/11/20 18:59 06:59 18:59 Intake Total 240 1690 240 Balance 240 1690 240 Intake: Intake, IV Titration 50 Amount cefTRIAXone 1 gm In 50 Sodium Chloride 0.9% 50 ml @ 100 mls/hr IVPB Q24H [facility] Rx#:[id number] Oral 240 1640 240 Other: Voiding Method Toilet Toilet Toilet # Voids 3 2 3 # Bowel Movements 1 - Exam The patient appeared well nourished and normally developed. Vital signs as documented. Head exam is unremarkable. No scleral icterus or corneal arcus noted. Neck is without jugular venous distension, thyromegaly, or carotid bruits. Carotid upstrokes are brisk bilaterally. Lungs were clear to auscultation and percussion, and with normal diaphragmatic excursion. No wheezes or rales were noted. . Cardiac exam reveals the PMI to be normally sized and situated. Rhythm is regular. First and second heart sounds normal. No murmurs, rubs or gallops. Abdominal exam reveals normal bowel sounds, no masses, no organomegaly and no aortic enlargement. Extremities are nonedematous and both femoral and pedal pulses are normal.Examination of the skin revealed no evidence of significant rashes, suspicious appearing nevi or other concerning lesions. Neurologically the patient is awake and alert and there is no focal neurological deficits. - Labs CBC & Chem 7: 02/09/20 08:12 02/09/20 08:12 Labs: Abnormal Lab Results - Last 24 Hours (Table) 02/10/20 02/10/20 02/11/20 Range/Units 17:23 19:23 06:59 POC Glucose (mg/dL) 142 H 197 H 159 H (75-99) mg/dL 02/11/20 02/11/20 Range/Units 11:33 16:58 POC Glucose (mg/dL) 105 H 123 H (75-99) mg/dL Microbiology - Last 24 Hours (Table) 02/09/20 13:40 Gram Stain - Final Bronchial Washings - Right Bronchial Washings Culture - Final 02/06/20 12:41 Blood Culture - Preliminary Blood No Growth after 120 hours 02/09/20 13:40 Acid Fast Bacilli Smear - Final Bronchial Washings - Right Acid Fast Bacilli Culture - Preliminary Assessment and Plan Plan: 1 persistent versus recurrent versus chronic right upper lobe pneumonia. The patient has infiltration of the right upper lobe. Also, these abnormalities w ere present back in 2019 on the previous CAT scan findings. There was also 1.5 cm pretracheal lymph node. For that reason, she may need to have a follow-up CAT scan was done and the results were noted. The patient underwent a bronchoscopy. The BAL is negative for any microbial growth. A chest x-ray from today shows clearing of the right upper lobe pulmonary infiltration. 2 COPD exacerbation with secondary shortness of breath 3 leukopenia of a new onset 4 thrombocytopenia of a new onset 5 history of smoking 6 history of bariatric surgery with significant weight loss and history of pernicious anemia 7 peripheral vascular disease 8 chronic anxiety/panic 9 coronary artery disease with previous myocardial infarctions 10 history of DVT of the right lower extremity back in 1996 11 restless leg syndrome Plan Awaiting the final results of the BAL. The patient recovered clinically and the chest x-ray is also normalized. Room air oxygen. The viral growth from the bronchioloalveolar lavage was negative. The bacterial growth has been negative thus far. She was reassured. Discharge per medicine.
[2020-02-11] MEDS: predniSONE 20 MG TAB PO SCH (17:05)
--- NOTE | 2020-02-11 17:12 | PN ---
PROGRESS NOTE DATE OF SERVICE: 02/11/2020 This 64-year-old woman who was admitted with COPD, acute exacerbation, also has suspected right upper lobe pneumonia which is recurrent. Patient has severe anxiety and panic attacks, also. Dr. Recinos is following the patient closely as well. The chest x-ray showed bilateral increased vascular markings. Patient is being closely monitored. No chest pain. No palpitations. No fever. PHYSICAL EXAMINATION: Alert and oriented x3. Pulse 63, blood pressure 177/78, respiration 22, temperature 97.6, pulse ox 97% on room air. HEENT: Conjunctivae normal. NECK: No jugular venous distention. CARDIOVASCULAR SYSTEM: S1, S2 muffled. RESPIRATORY SYSTEM: Breath sounds diminished at the bases. A few scattered rhonchi and crackles. ABDOMEN: Soft, non-tender. LEGS: No edema. No swelling. NERVOUS SYSTEM: No focal deficit. LABS: CBC within normal limits. Platelets are 136. BMP noted. Bronchoscopy report is awaited, including viral test. MINGO is negative. ASSESSMENT: 1. Chronic obstructive pulmonary disease, acute exacerbation, as well as possible recurrent upper lobe pneumonia, multifocal, possibly Gram-negative, status post bronchoscopy and bronchoalveolar lavage. 2. Leukopenia, thrombocytopenia under evaluation, possibly secondary to viral infection. Rule out primary hematologic abnormality. 3. Hyponatremia. 4. Increased random blood sugar, possibly secondary to steroids. 5. History of panic attacks and anxiety, severe. 6. History of deep vein thrombosis. 7. History of gastroesophageal reflux disease. 8. Hypertension. 9. History of myocardial infarction. 10.History of pneumonia. 11.History of bariatric surgery. 12.History of chronic diarrhea after surgery. 13.History of restless legs syndrome. 14.History of methicillin-resistant Staphylococcus aeruginosa. 15.History of cholecystectomy. 16.History of degenerative joint disease. 17.History of anxiety, panic disorder. 18.Remote history of nicotine dependence. 19.Obesity with body mass index of 33.3. 20.FULL CODE. RECOMMENDATIONS AND DISCUSSION: In this 64-year-old woman who presented with multiple medical issues, at this time I recommend to continue the current medications, continue symptomatic treatment. We will taper the steroids to prednisone. Otherwise, continue the rest of the medications. Continue the antibiotics. Closely follow with multiple consultants, including Infectious Disease and Pulmonary. Also recommend a psychiatric consultation because of the patient's severe panic episodes and previous history of multiple panic episodes with hospitalizations, according to the patient. The patient understands and agrees. Further recommendations to follow. MMODL / IJN: [id number] /
[2020-02-11] MEDS ORDERED: methylPREDNISolone SOD SUCCI 40 MG/ML 1 ML VIAL IV SCH (18:00)
[2020-02-11 19:58] LABS: Glucose,Whole Blood 173 mg/dL (75-99)
[2020-02-11] MEDS: ALPRAZolam 1 MG TAB PO SCH (20:51)
[2020-02-11] MEDS: MONTELUKAST 10 MG TAB PO SCH (20:51)
[2020-02-12 06:51] LABS: Glucose,Whole Blood 126 mg/dL (75-99)
[2020-02-12] MEDS: FORMOTEROL FUMARATE 20 MCG/2 ML NEBU INHALATION SCH ×2 (07:30→19:37)
[2020-02-12] MEDS: BUDESONIDE 1 MG/2 ML NEBU INHALATION SCH ×2 (07:30→19:37)
[2020-02-12] MEDS: IPRATROPIUM-ALBUTEROL 3 ML NEB INHALATION SCH ×4 (07:30→19:37)
[2020-02-12] MEDS: INSULIN ASPART (NovoLOG) 100 UNIT/ML VIAL SQ SCH ×4 (07:42→20:30)
[2020-02-12] MEDS: predniSONE 20 MG TAB PO SCH (08:06)
[2020-02-12] MEDS: PANTOPRAZOLE 40 MG TABLET PO SCH (08:06)
[2020-02-12] MEDS: ESTRADIOL 0.5 MG TAB PO SCH (08:06)
[2020-02-12] MEDS: SERTRALINE 100 MG TAB PO SCH (08:07)
[2020-02-12] MEDS: METOPROLOL SUCCINATE (ER) 25 MG TAB.ER.24H PO SCH (08:07)
[2020-02-12] MEDS: BENZOCAINE/MENTHOL LOZENG 1 EACH LOZENGE MUCOUS MEM PRN ×2 (08:07→19:19)
[2020-02-12] MEDS: HEPARIN SODIUM,PORCINE 5,000 UNIT/ML 1 ML VIAL SQ SCH ×2 (08:07→20:29)
[2020-02-12] MEDS: guaiFENesin 600 MG TABLET.ER PO SCH ×2 (08:07→20:29)
[2020-02-12] MEDS: MULTIVITAMINS, THERA 1 EACH TAB PO SCH (08:08)
--- NOTE | 2020-02-12 11:02 | P.PN ---
Subjective Progress Note Date: 02/12/20 Principal diagnosis: Recurrent right upper lobe pneumonia The patient is seen today 02/12/2020 in follow-up on the regular medical floor. She is currently sitting up in a chair at the bedside. Awake and alert in no acute distress. Maintaining O2 saturations in the mid 90s on room air. She's afebrile. Hemodynamically stable. Bronchial wash cultures reveal no growth. Blood culture revealed no growth. Glucose 126. Continued on DuoNeb inhalations, Pulmicort and Perforomist inhalations, antibiotics in the form of ceftriaxone and Levaquin, prednisone taper. Follow-up chest x-ray revealed no areas of focal consolidation. Objective - Vital Signs Vital signs: Vital Signs Temp 97.9 F 02/12/20 04:20 Pulse 74 02/12/20 07:53 Resp 16 02/12/20 04:20 BP 157/60 02/12/20 04:20 Pulse Ox 96 02/12/20 04:20 Intake & Output 02/11/20 02/12/20 02/12/20 18:59 06:59 18:59 Intake Total 240 1250 Balance 240 1250 Intake: Intake, IV Titration 50 Amount cefTRIAXone 1 gm In 50 Sodium Chloride 0.9% 50 ml @ 100 mls/hr IVPB Q24H [facility] Rx#:[id number] Oral 240 1200 Other: Voiding Method Toilet Toilet # Voids 3 2 # Bowel Movements 3 - Exam GENERAL EXAM: Alert, active, pleasant 64-year-old female patient, on room air, comfortable in no apparent distress. HEAD: Normocephalic. EYES: Normal reaction of pupils, equal size. NOSE: Clear with pink turbinates. THROAT: No erythema or exudates. NECK: No masses, no JVD. CHEST: No chest wall deformity. LUNGS: Equal air entry with no crackles, wheeze, rhonchi or dullness. CVS: S1 and S2 normal with no audible murmur, regular rhythm. ABDOMEN: No hepatosplenomegaly, normal bowel sounds, no guarding or rigidity. SPINE: No scoliosis or deformity SKIN: No rashes CENTRAL NERVOUS SYSTEM: Oriented 3, No focal deficits, tone is normal in all 4 extremities. EXTREMITIES: There is no peripheral edema. No clubbing, no cyanosis. Peripheral pulses are intact. - Labs CBC & Chem 7: 02/09/20 08:12 02/09/20 08:12 Labs: Abnormal Lab Results - Last 24 Hours (Table) 02/11/20 02/11/20 02/11/20 Range/Units 11:33 16:58 19:57 POC Glucose (mg/dL) 105 H 123 H 173 H (75-99) mg/dL 02/12/20 Range/Units 06:49 POC Glucose (mg/dL) 126 H (75-99) mg/dL Microbiology - Last 24 Hours (Table) 02/09/20 13:40 Gram Stain - Final Bronchial Washings - Right Bronchial Washings Culture - Final 02/06/20 12:41 Blood Culture - Preliminary Blood No Growth after 120 hours Assessment and Plan Assessment: 1 persistent versus recurrent versus chronic right upper lobe pneumonia. The patient had infiltration of the right upper lobe. Also, these abnormalities were present back in 2019 on the previous CAT scan findings. There was also 1.5 cm pretracheal lymph node. For that reason, a follow-up CAT scan was done and the results were noted. The patient underwent a bronchoscopy. The BAL is negative for any microbial growth. A chest x-ray from yesterday shows clearing of the right upper lobe pulmonary infiltration. 2 COPD exacerbation with secondary shortness of breath 3 leukopenia of a new onset 4 thrombocytopenia of a new onset 5 history of smoking 6 history of bariatric surgery with significant weight loss and history of pernicious anemia 7 peripheral vascular disease 8 chronic anxiety/panic 9 coronary artery disease with previous myocardial infarctions 10 history of DVT of the right lower extremity back in 1996 11 restless leg syndrome Plan Bronchial cultures reveal no growth Chest x-ray shows clearing On prednisone taper Cleared for discharge from pulmonary standpoint I, the cosigning physician, performed a history & physical examination of the patient. Lungs sounds are clear. Maintaining good O2 saturations in the 90s on room air. I discussed the assessment and plan of care with my nurse practitioner, Yumiko Robles. I attest to the above note as dictated by her.
[2020-02-12 11:08] LABS: Glucose,Whole Blood 106 mg/dL (75-99)
[2020-02-12] MEDS ORDERED: SERTRALINE 50 MG TAB PO STA (12:28)
--- NOTE | 2020-02-12 12:36 | P.CN ---
Psychiatric Consult - . 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 Patient was found to have a right upper lobe pneumonia which has been chronic. Psychiatry is consulted for anxiety and panic attacks. Patient was seen at the bedside and appeared to be anxious and explained that she was "about to have a panic attack" and she was beginning with mortgage loan underwriter. She states that she has been dealing with anxiety for approximately 19 years and spoke about having a MRSA infection 19 years ago and has been untreated for it. She states that this is been causing her to feel anxious. Patient spoke about several different stressors in her life. She states that her mood is "fine" and spoke about having panic attacks approximately 2-3 times a year. She states that there is no triggers she feels short of breath starts widening and feels a sense of doom. She also mentions that she feels palpitations when he comes on and ends up in the ER. She states that she gets admitted for cardiac workups usually and the panic attacks usually resolve in a few minutes. Patient was talkative and tangential during conversation. Patient does state that she has at times "mood swings". At this time patient denies any suicidal or homical ideations, intent or plan. Patient denies any auditory, visual hallucinations and denies any paranoia or delusions. Patients admits to using cigarettes in the past however is quit. PAST PSYCHIATRIC HISTORY: She claims that she has a history of anxiety and panic attacks. She denies any outpatient psychiatric follow-up and denies any previous psychiatric admissions. Patient denies any suicide attempts in the past.. PAST MEDICAL HISTORY: COPD, anemia, pneumonia, CO, DVT. ALLERGIES: as per EMR. CHEMICAL DEPENDENCY HISTORY: as per HPI. FAMILY PSYCHIATRIC/SUBSTANCE USE HISTORY: denies SOCIAL HISTORY: She states that she is born and raised in [facility] and completed up to the 12th grade in school. 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 MENTAL STATUS EXAM: General Appearance: Patient appears to be stated age is alert, attempts to be cooperative and appears anxious. Patient appears to have fair hygiene and grooming wearing hospital gown with fair eye contact. Behavior: Anxious however tends to cooperate. Speech: Patient's speech is fluent and nonpressured. Talkative. Mood/Affect: Patient reports their mood is "fine", affect is congruent and appears anxious. Suicidality/Homicidality: Patient denies having any suicidal or homicidal ideation intent or plan. Perceptions: Patient denies any visual hallucinations and denies any auditory hallucinations Though content/process: Patient is tangential/circumstantial, logical in her thought process. Memory and concentration: AOX3, grossly intact for the purposes of this session. Can spell "WORLD" backwards Judgment and insight: poor IMPRESSIONS: Anxiety disorder unspecified , likely panic disorder versus generalized anxiety disorder PLAN: -At this time patient DOES NOT meet criteria for inpatient psychiatric admission. -Would recommend the following medication changes/additions: Discontinued Restoril at nighttime as patient should not be having more benzodiazepines. Can continue Xanax as prescribed. Added on BuSpar 10 mg twice a day for anxiety, increased Zoloft to 150 mg daily for anxiety/mood. Added on Zyprexa 5 mg daily at bedtime for anxiety/mood stabilization/insomnia. -Will continue to follow along and see patient tomorrow -receiving worker to give patient outpatient referral to psychiatrist in the area, patient can also benefit from outpatient therapy. 02/12/20 12:30
[2020-02-12] MEDS: amLODIPine 10 MG TAB PO SCH (12:49)
[2020-02-12] MEDS: busPIRone HCl 10 MG TAB PO SCH ×2 (12:49→20:29)
[2020-02-12] MEDS: LEVOFLOXACIN 750 MG TAB PO SCH (13:03)
[2020-02-12 17:06] LABS: Glucose,Whole Blood 135 mg/dL (75-99)
--- NOTE | 2020-02-12 19:53 | PN ---
PROGRESS NOTE DATE OF SERVICE: 02/12/2020 This 64-year-old woman was admitted with COPD, acute exacerbation as well as recurrent right upper lobe pneumonia, multifocal, is being closely monitored. No chest pain. No palpitations. No fever. The patient has significant panic attacks and anxiety state also. Dr. Fonseca has seen the patient and recommended continue Xanax and adding BuSpar twice daily instead of the Zoloft and also Zyprexa was also added. No chest pain. No palpitations. No fever. PHYSICAL EXAMINATION: Alert and oriented x3. Pulse is 64. Blood pressure 201/88, respiration 20, temperature 98.2, pulse ox 98% on room air. HEENT: Conjunctivae normal. NECK: No JVD. CARDIOVASCULAR: S1, S2 muffled. RESPIRATORY SYSTEM: Breath sounds diminished at the bases. Scattered rhonchi and crackles. ABDOMEN is soft, nontender. LEGS: No edema. No swelling. CENTRAL NERVOUS SYSTEM: No focal deficits. LABS: Accu-Cheks 126, 106. Other labs are noted. ASSESSMENT: 1. Chronic obstructive pulmonary disease acute exacerbation as well as recurrent upper lobe pneumonia multifocal possibly gram-negative, status post bronchoscopy and bronchoalveolar lavage. 2. Leukopenia, thrombocytopenia under evaluation possibly secondary to viral infection, rule out primary hematology abnormality. 3. Hyponatremia. 4. Panic attacks and as well as anxiety state. 5. Hypertensive urgency. 6. Increased random blood sugar, possibly secondary to steroids. 7. History of deep vein thrombosis. 8. History of gastroesophageal reflux disease. 9. Hypertension. 10.History of myocardial infarction. 11.History of pneumonia. 12.History of bariatric surgery. 13.History of chronic diarrhea after surgery. 14.History of restless legs syndrome. 15.History of MRSA. 16.History of cholecystectomy. 17.History of degenerative joint disease. 18.History of anxiety, panic disorder. 19.Remote history of nicotine dependence. 20.Obesity with body mass index of 33.3. 21.FULL CODE. RECOMMENDATIONS AND DISCUSSION: Recommend to continue current medications, continue to monitor. Symptomatic treatment. Otherwise at this time I recommend continue with the bronchodilators and psychiatric medications as recommended by Dr. Fonseca. Continue to monitor. Prognosis guarded. Further recommendations to follow. Closely follow with Dr. Recinos. MMODL / IJN: [id number] /
[2020-02-12 20:23] LABS: Glucose,Whole Blood 100 mg/dL (75-99)
[2020-02-12] MEDS: ALPRAZolam 1 MG TAB PO SCH (20:29)
[2020-02-12] MEDS: MONTELUKAST 10 MG TAB PO SCH (20:29)
[2020-02-12] MEDS ORDERED: OLANZapine 5 MG TAB PO SCH (21:00)
[2020-02-13 05:27] VITALS: RESP 18
[2020-02-13 06:55] LABS: Glucose,Whole Blood 92 mg/dL (75-99)
[2020-02-13] MEDS: IPRATROPIUM-ALBUTEROL 3 ML NEB INHALATION SCH ×3 (08:22→15:36)
[2020-02-13] MEDS: FORMOTEROL FUMARATE 20 MCG/2 ML NEBU INHALATION SCH (08:22)
[2020-02-13] MEDS: BUDESONIDE 1 MG/2 ML NEBU INHALATION SCH (08:22)
[2020-02-13] MEDS: predniSONE 20 MG TAB PO SCH (08:30)
[2020-02-13] MEDS: METOPROLOL SUCCINATE (ER) 25 MG TAB.ER.24H PO SCH (08:30)
[2020-02-13] MEDS: amLODIPine 10 MG TAB PO SCH (08:30)
[2020-02-13] MEDS: guaiFENesin 600 MG TABLET.ER PO SCH (08:30)
[2020-02-13] MEDS: HEPARIN SODIUM,PORCINE 5,000 UNIT/ML 1 ML VIAL SQ SCH (08:30)
[2020-02-13] MEDS: PANTOPRAZOLE 40 MG TABLET PO SCH (08:31)
[2020-02-13] MEDS: busPIRone HCl 10 MG TAB PO SCH (08:31)
[2020-02-13] MEDS: INSULIN ASPART (NovoLOG) 100 UNIT/ML VIAL SQ SCH ×2 (08:32→12:35)
[2020-02-13] MEDS: ESTRADIOL 0.5 MG TAB PO SCH (08:32)
[2020-02-13] MEDS ORDERED: SERTRALINE 50 MG TAB PO SCH (09:00)
[2020-02-13 11:07] LABS: Glucose,Whole Blood 101 mg/dL (75-99)
[2020-02-13 11:29] VITALS: BP 162/78; PULSE 57; TEMP 97.6
[2020-02-13] MEDS: MULTIVITAMINS, THERA 1 EACH TAB PO SCH (12:35)
--- NOTE | 2020-02-13 12:44 | P.PN ---
Progress Note - Text Progress Note Date: 02/13/20 Psychiatric progress note: Interval History: Patient was seen today for follow-up regarding her anxiety and panic attacks. As per nurse taking care of patient states that patient did much better yesterday evening overnight and this morning in terms of her anxiety. Patient was seen sitting at the bedside and was directable and able to speak a commercial lines underwriter. Patient was very thankful with commercial lines underwriter and states that "you are an kiara with wings" thanking him for changing her medications. She states that she was skeptical about her medication changes however did much better since yesterday. She states that her anxiety is much improved and her mood as well. She states that she "slept 5-6 hours last night. She denied any panic attacks yesterday or this morning. She states that she has a better outlook on life. She asked more questions about her medications and commercial lines underwriter explained to her the benefits and side effects and risks of her medications. She states that her appetite is fair and energy level is good. She was more future oriented today and spoke about wanting to get referred into Dr. Brand's office for psychiatric follow-up. At this time patient denies any suicidal or homical ideations, intent or plan. Patient denies any auditory, visual hallucinations and denies any paranoia or delusions. Patient denies any side effects from the medications and has been compliant with meds. Mental Status Exam: General Appearance: Patient appears to be stated age is alert, more cooperative and less anxious today. Patient appears to have fair hygiene and grooming wearing street clothing with fair eye contact. Behavior: More cooperative and calmer. Speech: Patient's speech is fluent and nonpressured. Continues to be Talkative. Mood/Affect: Patient reports their mood is "much better", affect is congruent Suicidality/Homicidality: Patient denies having any suicidal or homicidal idea tion intent or plan. Perceptions: Patient denies any visual hallucinations and denies any auditory hallucinations Though content/process: Patient is tangential/circumstantial, logical in her thought process. More future oriented. Memory and concentration: AOX3, grossly intact for the purposes of this session. Can spell "WORLD" backwards Judgment and insight: Improving Assessment Anxiety disorder unspecified , likely panic disorder versus generalized anxiety disorder Plan: -At this time patient DOES NOT meet criteria for inpatient psychiatric admission. -Would recommend the following medication changes/additions: Decreased Xanax to 0.5 mg daily at bedtime for anxiety for 1 week and asked patient to do a trial of discontinuation afterwards. Increased BuSpar 15 mg twice a day for anxiety, continue with Zoloft to 150 mg daily for anxiety/mood. Continue with Zyprexa 5 mg daily at bedtime for anxiety/mood stabilization/insomnia. -Discussed with patient in detail about the medications and their side effects risks and benefits. Emphasized dietary and lifestyle changes and to watch patient's weight due to the side effects/risk of metabolic syndrome with Zyprexa, patient verbally understood and agreed. Also spoke to patient about decreasing her Xanax at night to 0.5 mg and after one week a trial of discontinuing the medication as it may lead to possible falls or confusion. -Will sign off at this time. -material worker to give patient outpatient referral to psychiatrist in the area, patient can also benefit from outpatient therapy.
[2020-02-13] MEDS ORDERED: busPIRone HCl 5 MG TAB PO SCH (21:00)
[2020-02-13] MEDS ORDERED: ALPRAZolam 0.5 MG TAB PO SCH (21:00)
--- NOTE | 2020-02-13 23:44 | DS ---
DISCHARGE SUMMARY DATE OF SERVICE: 02/13/2020 FINAL DIAGNOSES: 1. Chronic obstructive pulmonary disease, acute exacerbation, as well as recurrent upper lobe pneumonia, multifocal, possibly Gram-negative, status post bronchoscopy and bronchoalveolar lavage. 2. Leukopenia, thrombocytopenia, under evaluation, possibly secondary to viral etiology. Rule out primary hematologic abnormality, improved. 3. Hyponatremia. 4. Panic attacks as well as anxiety state. 5. Hypertensive urgency. 6. Increased random blood sugar, possibly secondary to steroids. 7. History of deep vein thrombosis. 8. History of gastroesophageal reflux disease. 9. Hypertension. 10.History of myocardial infarction. 11.History of pneumonia. 12.History of bariatric surgery. 13.History of chronic diarrhea after surgery. 14.History of restless legs syndrome. 15.Methicillin-resistant Staphylococcus aeruginosa. 16.History of cholecystectomy. 17.History of degenerative joint disease. 18.Anxiety, panic disorder. 19.Remote history of nicotine dependence. 20.Obesity with body mass index of 33.3. 21.FULL CODE. DISCHARGE DISPOSITION: The patient will be discharged in stable condition with guarded prognosis. Total time taken 35 minutes. HISTORY OF PRESENT ILLNESS: This 64-year-old woman with a past medical history of multiple medical problems, being followed by Dr. Roblero in the outpatient setting, was admitted with multiple respiratory problems, as mentioned earlier. The patient was given antibiotics for pneumonia. Dr. Recinos performed a bronchoscopy. The final bronchoscopic cultures are pending at this time; recommended outpatient followup. Otherwise, the patient improved significantly. The patient also had an episode of anxiety and panic attacks. Dr. Sanches from Psych saw the patient. Medication was adjusted. Patient improved significantly. On exam, vitals are stable. CARDIOVASCULAR SYSTEM: S1, S2 muffled. RESPIRATORY SYSTEM: Breath sounds diminished at the bases. A few rhonchi and crackles. DISCHARGE ADVICE AND MEDICATIONS: 1. Diet is cardiac. 2. Activity limited until followup. 3. Follow up with Dr. Roblero in 2-3 days. 4. Follow up with Dr. Brand as advised. 5. Follow up with Dr. Recinos as recommended. 6. Estrace 0.5 daily. 7. Requip 1 mg at bedtime. 8. Toprol-XL 25 mg daily. 9. Vitamin B12 1000 mcg subcutaneously daily. 10.BuSpar 15 mg p.o. b.i.d. 11.Ceftin 500 mg p.o. b.i.d. for 3 days. 12.DuoNeb q.i.d. and p.r.n. 13.Multivitamins 1 p.o. daily. 14.Norvasc 10 mg daily. 15.Prednisone taper: 40 mg daily for 3 days; 30 mg daily for 3 days; 20 mg daily for 3 days; 10 mg daily for 3 days. 16.Protonix 40 mg daily. 17.Singulair 10 mg at bedtime. 18.Symbicort 1 puff b.i.d. 19.Xanax 0.5 at bedtime. 20.Zoloft mg p.o. daily. 21.Zyprexa 5 mg p.o. at bedtime. Once again, the patient will be discharged in stable condition with guarded prognosis. MMPATRICIA / DHEERAJ: [id number] / MTDD
[2020-02-17] MEDS ORDERED: CYANOCOBALAMIN 1,000 MCG/ML 1 ML VIAL SQ SCH (12:00)
== END 2020-02-13 16:06 | disposition home or self-care (01) | DRG 178 ==
LOC: EC 10:00 → 6PED 12:50 → 5NMEDONC 12:55 → OBSVTOIN 02-08 08:54
PROVIDERS: ADMIT Internal Medicine; ATTEND Internal Medicine
PROC: 0B9C8ZX Drainage of Right Upper Lung Lobe, Via Natural or Artificial Opening Endoscopic, Diagnostic (ICD-10-PCS; principal; 2020-02-08)
DX: J15.6 Pneumonia due to other Gram-negative bacteria (principal); J44.0 Chronic obstructive pulmonary disease with (acute) lower respiratory infection; J44.1 Chronic obstructive pulmonary disease with (acute) exacerbation; E87.1 Hypo-osmolality and hyponatremia; D69.6 Thrombocytopenia, unspecified; D72.819 Decreased white blood cell count, unspecified; E66.9 Obesity, unspecified; F41.0 Panic disorder [episodic paroxysmal anxiety]; Z68.33 Body mass index [BMI] 33.0-33.9, adult; F41.1 Generalized anxiety disorder; G25.81 Restless legs syndrome; I10 Essential (primary) hypertension; I16.0 Hypertensive urgency; I25.10 Atherosclerotic heart disease of native coronary artery without angina pectoris; I25.2 Old myocardial infarction; I73.9 Peripheral vascular disease, unspecified; M19.90 Unspecified osteoarthritis, unspecified site; R04.0 Epistaxis; T38.0X5A Adverse effect of glucocorticoids and synthetic analogues, initial encounter; Z79.899 Other long term (current) drug therapy; Z82.3 Family history of stroke; Z86.14 Personal history of Methicillin resistant Staphylococcus aureus infection; Z86.19 Personal history of other infectious and parasitic diseases; Z86.718 Personal history of other venous thrombosis and embolism; Z87.01 Personal history of pneumonia (recurrent); Z87.891 Personal history of nicotine dependence; Z90.49 Acquired absence of other specified parts of digestive tract; Z90.710 Acquired absence of both cervix and uterus; Z98.84 Bariatric surgery status; K52.9 Noninfective gastroenteritis and colitis, unspecified
CPT/HCPCS: 31624; 36415; 71046; 71260; 80048; 80053; 82164; 82785; 83605; 83735; 83880; 85025; 85379; 85610; 85652; 85730; 86003; 86038; 86140; 86431; 87040; 87070; 87102; 87116; 87205; 87206; 87252; 87496; 87498; 87502; 87529; 87634; 87798; 88108; 88305; 89050; 93005; 94640; 94760; 96361; 96365; 99285

== ENCOUNTER → 2020-02-15 | Outpatient (CLI) | payer MEDICARE ==
[2020-02-15 11:51] LABS: Basophils % (A) 0 %; Eosinophils % (A) 0 %; HGB 13.4 gm/dL (11.4-16.0); Lymphocytes # (A) 0.8 k/uL (1.0-4.8); Lymphocytes % (A) 7 %; MCH 27.6 pg (25.0-35.0); MCHC 31.8 g/dL (31.0-37.0); MCV 86.7 fL (80.0-100.0); Mean Platelet Volume 7.7; Monocytes # (A) 0.4 k/uL (0-1.0); Monocytes % (A) 4 %; Neutrophils # (A) 9.4 k/uL (1.3-7.7); Neutrophils % (A) 88 %; Platelet Count 229 k/uL (150-450); RBC 4.84 m/uL (3.80-5.40); RDW 13.9 % (11.5-15.5); WBC 10.7 k/uL (3.8-10.6)
[2020-02-15 16:23] LABS: Anion Gap 9.9 mmol/L (4.00-12.00); Calcium 8.8 mg/dL (8.7-10.3); Carbon Dioxide 28.1 mmol/L (21.6-31.8); Non-African American GFR(CKD) 52.6 (60.0-200.0); Potassium 3.9 mmol/L (3.5-5.5)
== END | disposition home or self-care (01) ==
LOC: LABWHC1 10:58
PROVIDERS: ATTEND Hospitalist
DX: J44.9 Chronic obstructive pulmonary disease, unspecified (principal)
CPT/HCPCS: 36415; 80048; 85025

== ENCOUNTER → 2020-06-11 | Outpatient (CLI) | payer MEDICARE ==
--- NOTE | 2020-06-13 10:21 | MM ---
Reason for exam: screening (asymptomatic). Last mammogram was performed 11 years and 11 months ago. History: Patient is postmenopausal and is nulliparous. Taking estrogen for 15 years 2 months. Physical Findings: A clinical breast exam by your physician is recommended on an annual basis and results should be correlated with mammographic findings. MG Screening Mammo w CAD Bilateral CC and MLO view(s) were taken. Prior study comparison: December 25, 2016, mammogram, performed at [facility]. December 05, 2014, mammogram, performed at [facility]. The breast tissue is extremely dense which could obscure a lesion on mammography. There is chronic nodularity bilaterally. No significant changes when compared with prior studies. ASSESSMENT: Benign, BI-RAD 2 RECOMMENDATION: Routine screening mammogram of both breasts in 1 year.
== END | disposition home or self-care (01) ==
LOC: RADMAMWWP 07:52
PROVIDERS: ATTEND Internal Medicine
DX: Z12.31 Encounter for screening mammogram for malignant neoplasm of breast (principal)
CPT/HCPCS: 77067

== ENCOUNTER → 2020-07-10 | Outpatient (CLI) | payer MEDICARE ==
--- NOTE | 2020-07-10 13:05 | CT ---
EXAMINATION TYPE: CT chest w con DATE OF EXAM: 07/10/2020 COMPARISON: CT chest February 07, [address] September 12, 2019 HISTORY: Shortness of breath x6 months. CT DLP: 422.3 mGycm. Automated Exposure Control for Dose Reduction was Utilized. TECHNIQUE: CT scan of the thorax is performed following with IV Contrast, patient injected with 80ml mL of Isovue 300. FINDINGS: LUNGS: [place] mild to borderline moderate underlying emphysematous change. Interval marked improvemen t in scattered groundglass opacities throughout both lungs. Some motion artifact near diaphragm is pr esent. No new areas of focal groundglass opacity or consolidation. No suspicious new nodules or viviana s. No pleural effusion or pneumothorax seen. MEDIASTINUM: There are no greater than 1 cm hilar or mediastinal lymph nodes. No pericardial effus ion is seen. Stable mild cardiomegaly with moderate biatrial dilatation. Coronary artery calcificati on redemonstrated which is noted marked underlying coronary artery disease OTHER: Surgical changes from gastric weight loss procedure redemonstrated. Partial visualization of s carring in the anterior upper to mid abdominal wall. Mild multilevel spurring in the spine. Persisten t irregular hypodense 4.3 cm right hepatic lobe posterior lesion. Follow-up advised if has not been p erformed. This is larger and more prominent from January 14, [address] IMPRESSION: Interval resolution of bilateral multifocal groundglass opacities. No new opacities or no dules identified. Suspect interval resolution of bilateral multilobar atypical pneumonia, correlate c linically. Covid-19 infection would be in differential for CT findings in January in retrospect. Suspec t enlarging liver lesion. Follow-up advised if has not been performed.
== END | disposition home or self-care (01) ==
LOC: RADCTMAIN 11:14
PROVIDERS: ATTEND Internal Medicine Critical Care Medicine
DX: R06.02 Shortness of breath (principal)
CPT/HCPCS: 82565; 84520; 71260; 36415; Q9967

== ENCOUNTER 2020-08-07 15:00 | Inpatient (IN) | payer MEDICARE ==
[2020-08-07] MEDS ORDERED: SODIUM CHLORIDE 0.9% 1,000 ML IV STA (15:44)
[2020-08-07] MEDS ORDERED: IPRATROPIUM-ALBUTEROL 3 ML NEB INHALATION STA (15:44)
[2020-08-07 16:26] LABS: Anisocytosis Slight; Basophils % (A) 0 %; Eosinophils # (A) 0.1 k/uL (0-0.7); Eosinophils % (A) 1 %; HGB 9.8 gm/dL (11.4-16.0); Hypochromasia Moderate; Lymphocytes # (A) 0.7 k/uL (1.0-4.8); Lymphocytes % (A) 12 %; MCH 22.6 pg (25.0-35.0); MCHC 30.5 g/dL (31.0-37.0); Mean Platelet Volume 8.1; Microcytosis Moderate; Monocytes # (A) 0.3 k/uL (0-1.0); Monocytes % (A) 5 %; Neutrophils # (A) 4.9 k/uL (1.3-7.7); Neutrophils % (A) 81 %; Platelet Count 122 k/uL (150-450); RBC 4.32 m/uL (3.80-5.40); RDW 16.6 % (11.5-15.5); WBC 6.1 k/uL (3.8-10.6)
--- NOTE | 2020-08-07 16:27 | ED ---
SOB HPI - General Chief Complaint: Shortness of Breath Stated Complaint: SOB Time Seen by Provider: 08/07/20 15:35 Source: patient, RN notes reviewed, old records reviewed Mode of arrival: ambulatory Limitations: no limitations - History of Present Illness Initial Comments: This is a 64-year-old female DF for evaluation of shortness of breath patient fo llows with both cardiology as well as pulmonology regarding her shortness of breath. No recent travel history sick contacts patient does have persistent shortness of breath. She was just a prior episodes of pneumonia, no known sick contacts no known recent travel history, patient denies any fevers. No current chest pain. She feels very weak, lightheaded, having trouble catching her breath MD Complaint: shortness of breath -: days(s) Severity: moderate Severity scale (1-10): 7 Consistency: constant Improves With: rest Worsens With: exertion, movement Known History Of: COPD, congestive heart failure, recurrent pneumonia Context: recent URI, recent illness Associated Symptoms: cough - Related Data Home Medications Medication Instructions Recorded Confirmed Metoprolol Succinate (ER) [Toprol 25 mg PO DAILY 09/25/17 02/06/20 XL] estradioL [Estrace] 0.5 mg PO DAILY 09/25/17 02/06/20 Cyanocobalamin (Vitamin B-12) 1,000 mcg SQ Q14D 09/12/19 02/06/20 [Vitamin B-12] rOPINIRole HCL [Requip] 1 mg PO HS 02/06/20 02/06/20 Previous Rx's Medication Instructions Recorded ALPRAZolam [Xanax] 0.5 mg PO HS #10 tab 02/13/20 Budesonide/Formoterol Fumarate 1 puff IH BID #1 hfa.aer.ad 02/13/20 [Symbicort 160-4.5 Mcg Inhaler] Cefuroxime Axetil [Ceftin] 500 mg PO BID 3 Days #6 tab 02/13/20 Ipratropium-Albuterol Nebulize 3 ml INHALATION RT-QID #120 ml 02/13/20 [Duoneb 0.5 mg-3 mg/3 ml Soln] Montelukast [Singulair] 10 mg PO HS #30 tab 02/13/20 Multivitamins, Thera [Multivitamin 1 each PO DAILY@1200 #30 tab 02/13/20 (formulary)] OLANZapine [ZyPREXA] 5 mg PO HS #30 tab 02/13/20 Pantoprazole [Protonix] 40 mg PO AC-BRKFST #30 tablet. 02/13/20 Sertraline [Zoloft] 150 mg PO DAILY #30 tab 02/13/20 amLODIPine [Norvasc] 10 mg PO DAILY #30 tab 02/13/20 busPIRone HCl [Buspar] 15 mg PO BID #60 tab 02/13/20 predniSONE 10 mg PO DIRECTED #30 tab 02/13/20 Allergies Allergy/AdvReac Type Severity Reaction Status Date / Time No Known Allergies Allergy Verified 08/07/20 15:17 Review of Systems ROS Statement: Those systems with pertinent positive or pertinent negative responses have been documented in the HPI. ROS Other: All systems not noted in ROS Statement are negative. Past Medical History Past Medical History: Deep Vein Thrombosis (DVT), GERD/Reflux, Hypertension, Myocardial Infarction (DE), Pneumonia, Vascular Disorder Additional Past Medical History / Comment(s): Previous history of gastric bypass surgery for obesity, remote history of a right lower extremity DVT 1996, peripheral vascular disease with previous angioplasty, restless leg syndrome, iron deficiency, COPD, Last Myocardial Infarction Date:: 10/2014 History of Any Multi-Drug Resistant Organisms: MRSA Date of last positivie culture/infection: 2000 MDRO Source:: wound Past Surgical History: Appendectomy, Bariatric Surgery, Breast Surgery, Cholecystectomy, Heart Catheterization, Hysterectomy, Orthopedic Surgery Additional Past Surgical History / Comment(s): Gastric bypass and subsequent multiple surgeries d/t incision did not heal properly and bowel was nicked, exploratory laparotomies, bilateral fem/pop bypass/stents, recent L wrist fracture with sx/hardware, bilateral feet bunionectomies, L rotator cuff repair, L knee arthroscopy, L breast benign bx, EGD, colonoscopies/benign polypectomy Past Anesthesia/Blood Transfusion Reactions: No Reported Reaction Past Psychological History: Anxiety, Panic Disorder Smoking Status: Former smoker, Never smoker Past Alcohol Use History: Rare Past Drug Use History: None Reported - Past Family History Father Family Medical History: CVA/TIA, Pneumonia Additional Family Medical History / Comment(s): STROKE AT AGE 50. Father of pne at the age of 63 yrs. Mother Family Medical History: No Reported History Additional Family Medical History / Comment(s): Mother is healthy and 83 yrs old. General Exam Limitations: no limitations General appearance: alert, in no apparent distress Head exam: Present: atraumatic, normocephalic, normal inspection Eye exam: Present: normal appearance, PERRL, EOMI. Absent: scleral icterus, conjunctival injection, periorbital swelling ENT exam: Present: normal exam, mucous membranes moist Neck exam: Present: normal inspection. Absent: tenderness, meningismus, lymphadenopathy Respiratory exam: Present: normal lung sounds bilaterally. Absent: respiratory distress, wheezes, rales, rhonchi, stridor Cardiovascular Exam: Present: regular rate, normal rhythm, normal heart sounds. Absent: systolic murmur, diastolic murmur, rubs, gallop, clicks GI/Abdominal exam: Present: soft, tenderness, normal bowel sounds. Absent: distended, guarding, rebound, rigid Extremities exam: Present: normal inspection, full ROM, normal capillary refill. Absent: tenderness, pedal edema, joint swelling, calf tenderness Back exam: Present: normal inspection Neurological exam: Present: alert, oriented X3, CN II-XII intact Psychiatric exam: Present: normal affect, normal mood Skin exam: Present: warm, dry, intact, normal color. Absent: rash Course Vital Signs 08/07/20 08/07/20 08/07/20 15:12 15:53 16:18 Temperature 99.4 F 100.1 F H Pulse Rate 78 72 68 Respiratory 18 18 Rate Blood Pressure 158/82 148/72 O2 Sat by Pulse 95 94 L Oximetry 08/07/20 08/07/20 16:29 17:17 Temperature 97.6 F Pulse Rate 69 71 Respiratory 18 Rate Blood Pressure 155/62 O2 Sat by Pulse 94 L Oximetry - Reevaluation(s) Reevaluation #1: 08/07/20 17:25 Medical records reviewed Reevaluation #2: 08/07/20 17:25 Patient is still complaining of mild shortness of breath having some anxiety Reevaluation #3: 08/07/20 17:25 The patient regarding results of testing, questions are answered - Consultations Consultation #1: Spoke with [facility] agree to admit this patient Medical Decision Making - Medical Decision Making 65 female is positive for pneumonia we'll admit patient IV antibiotics and to see pulmonology rule out covert - Lab Data Result diagrams: 08/07/20 15:51 08/07/20 15:51 Lab Results 08/07/20 08/07/20 08/07/20 Range/Units 15:51 15:51 15:51 WBC 6.1 (3.8-10.6) k/uL RBC 4.32 (3.80-5.40) m/uL Hgb 9.8 L (11.4-16.0) gm/dL Hct 32.0 L (34.0-46.0) % MCV 74.0 L (80.0-100.0) fL MCH 22.6 L (25.0-35.0) pg MCHC 30.5 L (31.0-37.0) g/dL RDW 16.6 H (11.5-15.5) % Plt Count 122 L (150-450) k/uL Neutrophils % 81 % Lymphocytes % 12 % Monocytes % 5 % Eosinophils % 1 % Basophils % 0 % Neutrophils # 4.9 (1.3-7.7) k/uL Lymphocytes # 0.7 L (1.0-4.8) k/uL Monocytes # 0.3 (0-1.0) k/uL Eosinophils # 0.1 (0-0.7) k/uL Basophils # 0.0 (0-0.2) k/uL Hypochromasia Moderate Anisocytosis Slight Microcytosis Moderate Sodium 137 (137-145) mmol/L Potassium 4.2 (3.5-5.1) mmol/L Chloride 106 (98-107) mmol/L Carbon Dioxide 22 (22-30) mmol/L Anion Gap 9 mmol/L BUN 13 (7-17) mg/dL Creatinine 0.82 (0.52-1.04) mg/dL Est GFR (CKD-EPI)AfAm 86 (>60 ml/min/1.73 sqM) Est GFR (CKD-EPI)NonAf 75 (>60 ml/min/1.73 sqM) Glucose 97 (74-99) mg/dL Plasma Lactic Acid Cristobal 1.6 (0.7-2.0) mmol/L Calcium 8.7 (8.4-10.2) mg/dL Magnesium 2.0 (1.6-2.3) mg/dL Total Bilirubin 0.8 (0.2-1.3) mg/dL AST 35 (14-36) U/L ALT 24 (4-34) U/L Alkaline Phosphatase 75 (38-126) U/L Creatine Kinase 33 (30-135) U/L Troponin I (0.000-0.034) ng/mL NT-Pro-B Natriuret Pep pg/mL Total Protein 6.5 (6.3-8.2) g/dL Albumin 3.8 (3.5-5.0) g/dL 08/07/20 08/07/20 Range/Units 15:51 15:51 WBC (3.8-10.6) k/uL RBC (3.80-5.40) m/uL Hgb (11.4-16.0) gm/dL Hct (34.0-46.0) % MCV (80.0-100.0) fL MCH (25.0-35.0) pg MCHC (31.0-37.0) g/dL RDW (11.5-15.5) % Plt Count (150-450) k/uL Neutrophils % % Lymphocytes % % Monocytes % % Eosinophils % % Basophils % % Neutrophils # (1.3-7.7) k/uL Lymphocytes # (1.0-4.8) k/uL Monocytes # (0-1.0) k/uL Eosinophils # (0-0.7) k/uL Basophils # (0-0.2) k/uL Hypochromasia Anisocytosis Microcytosis Sodium (137-145) mmol/L Potassium (3.5-5.1) mmol/L Chloride (98-107) mmol/L Carbon Dioxide (22-30) mmol/L Anion Gap mmol/L BUN (7-17) mg/dL Creatinine (0.52-1.04) mg/dL Est GFR (CKD-EPI)AfAm (>60 ml/min/1.73 sqM) Est GFR (CKD-EPI)NonAf (>60 ml/min/1.73 sqM) Glucose (74-99) mg/dL Plasma Lactic Acid Cristobal (0.7-2.0) mmol/L Calcium (8.4-10.2) mg/dL Magnesium (1.6-2.3) mg/dL Total Bilirubin (0.2-1.3) mg/dL AST (14-36) U/L ALT (4-34) U/L Alkaline Phosphatase (38-126) U/L Creatine Kinase (30-135) U/L Troponin I 0.036 H* (0.000-0.034) ng/mL NT-Pro-B Natriuret Pep 1420 pg/mL Total Protein (6.3-8.2) g/dL Albumin (3.5-5.0) g/dL - EKG Data -: EKG Interpreted by Me (EKG shows sinus rhythm 76 VT 134 QRS 66 QTc 452) - Radiology Data Radiology results: report reviewed (Chest x-rays positive for recurrent pneumonia), image reviewed Disposition Clinical Impression: Pneumonia, Community acquired pneumonia Narrative: roCOVID Disposition: ADMITTED IP TO THIS HOSP Condition: Good Is patient prescribed a controlled substance at d/c from ED?: No Referrals: Parmjit Roblero MD [Primary Care Provider] - 1-2 days
[2020-08-07 16:30] LABS: Albumin 3.8 g/dL (3.5-5.0); Calcium 8.7 mg/dL (8.4-10.2); Potassium 4.2 mmol/L (3.5-5.1); Total Bilirubin 0.8 mg/dL (0.2-1.3); Total Protein 6.5 g/dL (6.3-8.2)
--- NOTE | 2020-08-07 16:58 | XR ---
EXAMINATION TYPE: XR chest 2V DATE OF EXAM: 08/07/2020 COMPARISON: 02/11/2020 INDICATION: Difficulty breathing TECHNIQUE: Frontal and lateral views of the chest are obtained. FINDINGS: The heart size is normal. The pulmonary vasculature is normal. There is some mild increased lung markings greater on the right than on the left. This is an interval change.. IMPRESSION: 1. Mild increased lung markings on the right. Correlate for atelectasis and pneumonia. Consider atypi santiago pneumonia. Follow-up can be performed.
[2020-08-07] MEDS ORDERED: AZITHROMYCIN 500 MG in SODIUM CHLORIDE 0.9% 250 ML IVPB STA (17:19)
[2020-08-07] MEDS ORDERED: PNEUMONIA PROTOCOL UTILIZED 1 EACH MISC PO PRN (17:19)
[2020-08-07] MEDS ORDERED: IPRATROPIUM-ALBUTEROL 3 ML NEB INHALATION PRN (17:19)
[2020-08-07 17:36] LABS: INR 0.9 (<1.2); Partial Thromboplastin Time 22.1 sec (22.0-30.0); Prothrombin Time 9.2 sec (9.0-12.0)
[2020-08-07] MEDS ORDERED: ALBUTEROL NEBULIZED 2.5 MG/3 ML INHALATION SCH (20:00)
[2020-08-07] MEDS: busPIRone HCl 5 MG TAB PO SCH (21:26)
[2020-08-07] MEDS: OLANZapine 5 MG TAB PO SCH (21:27)
[2020-08-07] MEDS: ALPRAZolam 1 MG TAB PO PRN (21:27)
[2020-08-08] MEDS ORDERED: ALBUTEROL NEBULIZED 2.5 MG/3 ML INHALATION SCH ×2 (02:00)
[2020-08-08] MEDS ORDERED: IPRATROPIUM 0.5 MG/2.5 ML NEBU INHALATION SCH (08:00)
[2020-08-08] MEDS: IPRATROPIUM-ALBUTEROL 3 ML NEB INHALATION SCH ×4 (08:54→19:53)
[2020-08-08] MEDS: MULTIVITAMINS, THERA 1 EACH TAB PO SCH (09:07)
[2020-08-08] MEDS: METOPROLOL SUCCINATE (ER) 25 MG TAB.ER.24H PO SCH (09:07)
[2020-08-08] MEDS: busPIRone HCl 5 MG TAB PO SCH ×2 (09:07→20:34)
[2020-08-08] MEDS: SERTRALINE 50 MG TAB PO SCH (09:07)
[2020-08-08] MEDS: ENOXAPARIN 40 MG/0.4 ML SYRINGE SQ SCH (09:08)
[2020-08-08] MEDS: ARIPiprazole 5 MG TAB PO SCH (09:08)
[2020-08-08] MEDS: OLANZapine 5 MG TAB PO SCH ×2 (09:09→20:34)
--- NOTE | 2020-08-08 09:33 | XR ---
EXAMINATION TYPE: XR chest 2V DATE OF EXAM: 08/08/2020 CLINICAL HISTORY: Pneumonia TECHNIQUE: Frontal and lateral views of the chest are obtained. COMPARISON: 08/07/2020 chest radiograph FINDINGS: The cardiomediastinal silhouette is within normal limits for size. Pulmonary vasculature i s normal. There are increased interstitial lung markings of the right lung, which are increased in co nspicuity of the right mid lung on current exam versus 08/07/2020. There is no pleural effusion, or pne umothorax seen. The osseous structures are intact. IMPRESSION: Asymmetric right interstitial markings, mildly increased at the right mid lung on current exam. Findings may represent atypical pneumonitis.
[2020-08-08 10:32] VITALS: BMI 33.7
--- NOTE | 2020-08-08 10:54 | P.HPIM ---
History of Present Illness Patient [id number] female came in with complaints of shortness of breath and the found to have low-grade fever and does have significant interstitial markings consistent with atypical pneumonia unfortunately patient was not tested for covid 19, which will be ordered now. Patient will be started on isolation. Patient did have generalized body aches not feeling well and shortness of breath going on for 3 days. Patient does have COPD he doesn't use any oxygen at home patient is presently on 3-4 L of oxygen. Patient denied any nausea vomiting abdominal pain dysuria. She denied any orthopnea proximal nocturnal dyspnea. Review of Systems REVIEW OF SYSTEMS: CONSTITUTIONAL: As mentioned in HPI HEENT: No recent visual problems or hearing problems. Denied any sore throat. CARDIOVASCULAR: No chest pain, orthopnea, PND, no palpitations, no syncope. PULMONARY: As mentioned in HPI GASTROINTESTINAL: No diarrhea, no nausea, no vomiting, no abdominal pain. NEUROLOGICAL: No headaches, no weakness, no numbness. HEMATOLOGICAL: Denies any bleeding or petechiae. GENITOURINARY: Denies any burning micturition, frequency, or urgency. MUSCULOSKELETAL/RHEUMATOLOGICAL: Denies any joint pain, swelling, or any muscle pain. ENDOCRINE: Denies any polyuria or polydipsia. The rest of the 14-point review of systems is negative. Past Medical History Past Medical History: COPD, Deep Vein Thrombosis (DVT), GERD/Reflux, Hypertension, Myocardial Infarction (VT), Pneumonia, Vascular Disorder Additional Past Medical History / Comment(s): Previous history of gastric bypass surgery for obesity, remote history of a right lower extremity DVT 1996, peripheral vascular disease with previous angioplasty, restless leg syndrome, iron deficiency, COPD, Last Myocardial Infarction Date:: 10/2014 History of Any Multi-Drug Resistant Organisms: MRSA Date of last positivie culture/infection: 2000 MDRO Source:: wound Past Surgical History: Appendectomy, Bariatric Surgery, Breast Surgery, Cholecystectomy, Heart Catheterization, Hysterectomy, Orthopedic Surgery Additional Past Surgical History / Comment(s): Gastric bypass and subsequent multiple surgeries d/t incision did not heal properly and bowel was nicked, exploratory laparotomies, bilateral fem/pop bypass/stents, recent L wrist fract ure with sx/hardware, bilateral feet bunionectomies, L rotator cuff repair, L knee arthroscopy, L breast benign bx, EGD, colonoscopies/benign polypectomy Past Anesthesia/Blood Transfusion Reactions: No Reported Reaction Past Psychological History: Anxiety, Panic Disorder Additional Psychological History / Comment(s): Pt resides with her spouse. She states she has high anxiety. Pt uses no assistive device. She drives. Smoking Status: Former smoker, Never smoker Past Alcohol Use History: Rare Additional Past Alcohol Use History / Comment(s): Pt started smoking in 1973 and quit in 2008. She was a ppd smoker. Past Drug Use History: None Reported - Past Family History Father Family Medical History: CVA/TIA, Pneumonia Additional Family Medical History / Comment(s): STROKE AT AGE 50. Father of pne at the age of 63 yrs. Mother Family Medical History: No Reported History Additional Family Medical History / Comment(s): Mother is healthy and 83 yrs old. Medications and Allergies Home Medications Medication Instructions Recorded Confirmed Type Metoprolol Succinate (ER) [Toprol 25 mg PO DAILY 09/25/17 08/07/20 History XL] estradioL [Estrace] 0.5 mg PO DAILY 09/25/17 08/07/20 History rOPINIRole HCL [Requip] 1 mg PO HS 02/06/20 08/07/20 History Sertraline [Zoloft] 150 mg PO DAILY #30 tab 02/13/20 08/07/20 Rx busPIRone HCl [Buspar] 15 mg PO BID #60 tab 02/13/20 08/07/20 Rx ALPRAZolam [Xanax] 1 mg PO BID PRN 08/07/20 08/07/20 History ARIPiprazole 5 mg PO DAILY 08/07/20 08/07/20 History Albuterol Nebulized [Ventolin 2.5 mg INHALATION RT-Q6H 08/07/20 08/07/20 History Nebulized] Albuterol Sulfate [Ventolin HFA] 1 - 2 puff INHALATION RT-Q6H 08/07/20 08/07/20 History Cholestyramine/Aspartame 4 gm PO DAILY 08/07/20 08/07/20 History [Cholestyramine Light Powder] Fluticasone/Umeclidin/Vilanter 1 puff INHALATION RT-DAILY 08/07/20 08/07/20 History [Trelegy Ellipta 100-62.5-25] Multivitamins, Thera [Multivitamin 1 tab PO DAILY 08/07/20 08/07/20 History (formulary)] OLANZapine [ZyPREXA] 5 mg PO BID 08/07/20 08/07/20 History Allergies Allergy/AdvReac Type Severity Reaction Status Date / Time No Known Allergies Allergy Verified 08/07/20 18:50 Physical Exam Vitals: Vital Signs Temp Pulse Pulse Resp BP BP Pulse Ox 08/08/20 09:08 76 08/08/20 08:56 74 08/08/20 08:00 98 F 71 16 133/76 95 08/08/20 04:00 98.3 F 61 17 110/53 97 08/07/20 23:35 97.8 F 68 16 191/89 99 08/07/20 21:19 72 08/07/20 20:49 72 08/07/20 20:00 98.4 F 75 18 144/65 94 L 08/07/20 18:38 98.4 F 75 18 144/65 94 L 08/07/20 18:00 74 18 147/90 96 08/07/20 17:17 97.6 F 71 18 155/62 94 L 08/07/20 16:29 69 08/07/20 16:18 68 08/07/20 15:53 100.1 F H 72 18 148/72 94 L 08/07/20 15:12 99.4 F 78 18 158/82 95 Intake and Output 08/07/20 08/08/20 08/08/20 22:59 06:59 14:59 Intake Total 1100 300 Balance 1100 300 Intake: Intake, IV Titration 650 Amount Sodium Chloride 0.9% 1, 650 000 ml @ 130 mls/hr IV . Q7H42M STA Rx#:[id number] Oral 450 300 Other: Voiding Method Toilet Toilet # Voids 2 Weight 89.358 kg 91.8 kg 91.8 kg PHYSICAL EXAMINATION: GENERAL: The patient is alert and oriented x3, not in any acute distress. Well developed, well nourished. HEENT: Pupils are round and equally reacting to light. EOMI. No scleral icterus. No conjunctival pallor. Normocephalic, atraumatic. No pharyngeal erythema. No thyromegaly. CARDIOVASCULAR: S1 and S2 present. No murmurs, rubs, or gallops. PULMONARY: Chest is clear to auscultation, no wheezing or crackles. ABDOMEN: Soft, nontender, nondistended, normoactive bowel sounds. No palpable organomegaly. MUSCULOSKELETAL: No joint swelling or deformity. EXTREMITIES: No cyanosis, clubbing, or pedal edema. NEUROLOGICAL: Gross neurological examination did not reveal any focal deficits. SKIN: Patient had a recent cystoscopy more than the back with sutures Results CBC & Chem 7: 08/07/20 15:51 08/07/20 15:51 Labs: Abnormal Lab Results - Last 24 Hours (Table) 08/07/20 08/07/20 Range/Units 15:51 15:51 Hgb 9.8 L (11.4-16.0) gm/dL Hct 32.0 L (34.0-46.0) % MCV 74.0 L (80.0-100.0) fL MCH 22.6 L (25.0-35.0) pg MCHC 30.5 L (31.0-37.0) g/dL RDW 16.6 H (11.5-15.5) % Plt Count 122 L (150-450) k/uL Lymphocytes # 0.7 L (1.0-4.8) k/uL Troponin I 0.036 H* (0.000-0.034) ng/mL Thrombosis Risk Factor Assmnt - Choose All That Apply Any of the Below Risk Factors Present?: Yes Each Factor Represents 1 point: Abnormal pulmonary function (COPD) Other Risk Factors: Yes Each Risk Factor Represents 2 Points: Age 61-74 years Other congenital or acquired thrombophilia - If yes, enter type in comment: No Thrombosis Risk Factor Assessment Total Risk Factor Score: 3 Thrombosis Risk Factor Assessment Level: Moderate Risk Assessment and Plan Plan: -Shortness of breath, acute hypoxic respiratory failure: Secondary to possible atypical pneumonia or covid 19, which we'll rule out. Continue with Rocephin and azithromycin for now pulmonology will evaluate the patient will obtain a d- dimer. -Mildly elevated troponins will repeat 2 more sets of troponins patient does have some pleuritic chest pain will start with d-dimer is positive will obtain a computed tomography scan of the chest to rule out PE will also obtain 2 more sets of troponins to make sure troponins are not going up patient chest pain is noncardiac in nature. -History of DVT in the past next and having gastric esophageal reflux disease next and heparin hypertension -Coronary artery disease -COPD without any significant exacerbation -DVT prophylaxis with the Lovenox
[2020-08-08] MEDS: SYMBICORT 80-4.5 MCG INHALER INHALATION SCH ×2 (11:45→19:53)
[2020-08-08] MEDS: CHOLESTYRAMINE PO SCH (12:33)
[2020-08-08] MEDS: ASPARTAME PO SCH (12:33)
--- NOTE | 2020-08-08 13:08 | CONS ---
CONSULTATION PULMONARY/CRITICAL CARE CONSULTATION: DATE OF SERVICE: 08/08/2020 REASON FOR CONSULTATION: Shortness of breath. This is a 65-year-old female who presented to the emergency department with complaints of shortness of breath. She follows with my partner, Dr. Recinos. She was in the hospital recently back in January I believe with an episode of right upper lung pneumonia. At that time, the patient had x-rays, CAT scans, and actually bronchoscopy with BAL. Everything turned out negative and Dr. Recinos subsequently saw her in the office and at that time, her pneumonia seemed to clear. The patient states that she has a bit of a cough. The cough is mostly nonproductive. She is not really having any fever. She does have chills she states. The shortness of breath is worse on exertion. She denies any chest pain or chest discomfort. She denies any nausea, vomiting, diarrhea, or abdominal pain. She denies any genitourinary complaints. She apparently was evaluated in the emergency room, admitted with a diagnosis of primarily right lung pneumonia, which might be atypical. CURRENT MEDICATIONS: Reviewed. She is on Toprol, Estrace, vitamin B12, Requip, Xanax, Symbicort, Ceftin, DuoNeb, Singulair, multivitamin, Zyprexa, Protonix, Zoloft, Norvasc, BuSpar, and prednisone. ALLERGIES: Denied. PAST MEDICAL HISTORY: Positive for DVT, GERD, hypertension, myocardial infarction, pneumonia, and COPD. We went back and looked at her office notes and apparently she had PFTs in the office which showed an FEV 1% of 66. Her diffusing capacity corrected for alveolar volume was a bit low. Hence, her disease was consistent with moderate or stage II emphysema. Other medical history includes previous gastric bypass for obesity, a remote history of right lower extremity DVT, peripheral vascular occlusive disease with previous angioplasty, restless legs syndrome, iron deficiency anemia, and a course of COPD as I mentioned. In addition, back in 2000, she had a MRSA infection. SURGICAL HISTORY: Includes appendectomy, bariatric surgery, breast surgery, cholecystectomy, heart catheterization, bilateral femoral popliteal bypass with stents, left wrist fracture with subsequent surgical repair, bilateral feet bunionectomies, left rotator cuff repair, left knee arthroscopy, benign breast biopsy, as well as EGD, and colonoscopy. SOCIAL HISTORY: Positive for previous tobacco use. She drinks alcohol rarely. No illicit drug use. FAMILY HISTORY: Positive for a father with CVA and pneumonia and mother with a history of no significant past medical problems. REVIEW OF SYSTEMS: CONSTITUTIONAL: Chills. NEUROLOGIC: Negative. HEENT: Negative. CARDIOVASCULAR: Negative. PULMONARY: Shortness of breath, chest congestion, cough, occasional phlegm production. GI: Negative. : Negative. RHEUMATOLOGIC: Negative. IMMUNOLOGIC: Negative. ENDOCRINOLOGIC: Negative. DERMATOLOGIC: Negative. Current vital signs are reviewed. Current temperature is 98, heart rate 74, respiratory rate 16, blood pressure 133/76 mean 95, and 2 L saturation 95%. Appears in no acute distress. Currently in no respiratory distress. There is no audible wheezing, use of accessory muscles, or conversational dyspnea. Actually, the patient looks quite comfortable. HEENT: Examination is grossly unremarkable. NECK: Supple. Full range of motion. No adenopathy. Neck veins are flat. CARDIOVASCULAR: Examination reveals regular rhythm and rate. S1, S2 normal. No S3, S4, murmur. LUNGS: Reveal a few scattered rhonchi. No wheezes or crackles. Nothing really localizes on pulmonary examination. ABDOMEN: Soft. EXTREMITIES: Intact. No cyanosis, clubbing, or edema. SKIN: Without rash. NEUROLOGIC: Examination is nonfocal. LAB DATA: Reviewed. White count 6.1, hemoglobin 9.8, hematocrit 32.0, platelet count 122,000. D- dimer 1.09. PT, INR, PTT all normal. Sodium, potassium chloride, CO2, anion gap, BUN, creatinine all normal. Her troponin was 0.036, N terminal proBNP 1420. Microbiology is pending or negative. Chest x-rays were done on August 08 and August 07. It shows increased markings and infiltrates, particularly in the right upper lobe, right mid lung area. Current medications are reviewed. The patient is currently on Xanax, Abilify, azithromycin, Symbicort, BuSpar, ceftriaxone, cholestyramine, Lovenox, Estrace, updrafts with albuterol and Atrovent, metoprolol, multivitamins, Zyprexa, Requip, Zoloft, and saline IV. ASSESSMENT: 1. Recurrent pneumonia, primarily involving the right lung. In particular, he is seeming to localize more so in the right upper lobe and right mid lung. 2. Status post previous bronchoscopy with BAL and sampling, January 2020, all of which was negative. 3. Previous history of tobacco use. 4. History of deep venous thrombosis. 5. History of gastroesophageal reflux disease. 6. History of hypertension. 7. History of myocardial infarction. 8. Peripheral vascular occlusive disease. 9. Status post bariatric surgery for obesity. 10.Restless legs syndrome. 11.Iron deficiency anemia. 12.Prior history of MRSA wound infection. 13.Multiple other medical problems and comorbidities. PLAN: The patient is on appropriate medications. Will continue to follow. Dr. Recinos knows this patient well as she saw her previously when she was admitted back in January and subsequently saw her in the office. She does have moderate to stage II COPD with features of emphysema. FEV 1% was 66. Will continue to follow. No additional recommendations are made. I am going to add some corticosteroids to her regimen. MMODL / IJN: [id number] /
--- NOTE | 2020-08-08 13:46 | CT ---
EXAMINATION TYPE: CT angio chest DATE OF EXAM: 08/08/2020 1:16 PM COMPARISON: 07/10/2020, 09/12/2008 HISTORY: Shortness of breath CT DLP: 424.4 mGycm Automated exposure control for dose reduction was used. CONTRAST: CTA scan of the thorax is performed , patient injected with 100 mL of Isovue 370, pulmonary embolism protocol. . FINDINGS: LUNGS: There is diffuse groundglass infiltrate throughout the right lung involving the right lower lo be, middle lobe and upper lobe. Basilar bronchiectasis on the right noted. Mild hyperinflation correl ate for COPD. No pneumothorax or pleural effusion. MEDIASTINUM: There is satisfactory enhancement of the pulmonary artery and its branches, there is no CT evidence for pulmonary embolism. There are no greater than 1 cm hilar or mediastinal lymph nodes. The heart is enlarged. Atherosclerotic change of the aorta. OTHER: Postsurgical change involving the epigastrium noted. Hypertrophic and degenerative changes sp ine.. IMPRESSION: NO DIAGNOSTIC EVIDENCE OF PULMONARY EMBOLISM. DIFFUSE GROUNDGLASS CHANGES ARE SEEN INVOLVING THE RIGH T LUNG WHICH COULD BE ON THE BASIS OF A PNEUMONITIS, DEVELOPING PNEUMONIA OR ALVEOLITIS. CORRELATE CL INICALLY. ASYMMETRIC VENOUS CONGESTION FELT LESS LIKELY.
[2020-08-08] MEDS: AZITHROMYCIN 500 MG TAB PO SCH (17:08)
[2020-08-08] MEDS: methylPREDNISolone SOD SUCCI 40 MG/ML 1 ML VIAL IV SCH ×2 (17:08→23:07)
[2020-08-08 20:11] LABS: Glucose,Whole Blood 133 mg/dL (75-99)
[2020-08-08] MEDS: INSULIN ASPART (NovoLOG) 100 UNIT/ML VIAL SQ SCH (21:00)
[2020-08-09 06:16] LABS: Glucose,Whole Blood 155 mg/dL (75-99)
[2020-08-09] MEDS: methylPREDNISolone SOD SUCCI 40 MG/ML 1 ML VIAL IV SCH ×5 (06:48→23:11)
[2020-08-09 06:49] LABS: Anisocytosis Slight; HCT 30.7 % (34.0-46.0); HGB 9.3 gm/dL (11.4-16.0); Hypochromasia Marked; MCH 23.1 pg (25.0-35.0); MCHC 30.2 g/dL (31.0-37.0); MCV 76.4 fL (80.0-100.0); Mean Platelet Volume 8.5; Microcytosis Slight; Platelet Count 143 k/uL (150-450); RBC 4.02 m/uL (3.80-5.40); RDW 16.7 % (11.5-15.5)
[2020-08-09 07:28] LABS: African American GFR (CKD) >90 (>60 ml/min/1.73 sqM); Anion Gap 9 mmol/L; Blood Urea Nitrogen 12 mg/dL (7-17); Calcium 8.8 mg/dL (8.4-10.2); Carbon Dioxide 23 mmol/L (22-30); Chloride 109 mmol/L (98-107); Glucose 163 mg/dL (74-99); Non-African American GFR(CKD) 86 (>60 ml/min/1.73 sqM); Potassium 4.6 mmol/L (3.5-5.1); Sodium 141 mmol/L (137-145)
[2020-08-09] MEDS: IPRATROPIUM-ALBUTEROL 3 ML NEB INHALATION SCH ×4 (08:45→19:51)
[2020-08-09] MEDS: SYMBICORT 80-4.5 MCG INHALER INHALATION SCH ×2 (08:45→19:51)
[2020-08-09 09:05] VITALS: RESP 18
[2020-08-09] MEDS: SERTRALINE 50 MG TAB PO SCH (09:06)
[2020-08-09] MEDS: busPIRone HCl 5 MG TAB PO SCH ×2 (09:06→21:10)
[2020-08-09] MEDS: ENOXAPARIN 40 MG/0.4 ML SYRINGE SQ SCH (09:06)
[2020-08-09] MEDS: METOPROLOL SUCCINATE (ER) 25 MG TAB.ER.24H PO SCH (09:07)
[2020-08-09] MEDS: ARIPiprazole 5 MG TAB PO SCH (09:07)
[2020-08-09] MEDS: MULTIVITAMINS, THERA 1 EACH TAB PO SCH (09:07)
[2020-08-09] MEDS: OLANZapine 5 MG TAB PO SCH ×2 (09:08→21:11)
[2020-08-09] MEDS: ASPARTAME PO SCH (09:23)
[2020-08-09] MEDS: CHOLESTYRAMINE PO SCH (09:23)
--- NOTE | 2020-08-09 10:49 | P.DS ---
Providers Date of admission: 08/07/20 17:42 Attending physician: Geovanna Gandara Consults: 08/07/20 17:24 Consult Physician Routine Consulting Provider: Gerber Recinos Consult Reason/Comments: known Do you want consulting provider notified?: Yes Primary care physician: Annika Parnell [facility] Course: 65-year-old female was admitted secondary to possible pneumonia possibly atypical pneumonia there is no lobar infiltrate CT angios the chest was obtained rule out pulmonary embolism., COVID 19 was ruled out. Patient is doing well and will ablate the patient without oxygen and patient doesn't require any as and patient will be discharged on the 6 more days of antibiotics. Patient is not in COPD exacerbation and do not believe patient will need any systemic steroids unless pulmonary believes then we'll give a prescription of oral steroids. PHYSICAL EXAMINATION: GENERAL: The patient is alert and oriented x3, not in any acute distress. Well developed, well nourished. HEENT: Pupils are round and equally reacting to light. EOMI. No scleral icterus. No conjunctival pallor. Normocephalic, atraumatic. No pharyngeal erythema. No thyromegaly. CARDIOVASCULAR: S1 and S2 present. No murmurs, rubs, or gallops. PULMONARY: Chest is clear to auscultation, no wheezing or crackles. ABDOMEN: Soft, nontender, nondistended, normoactive bowel sounds. No palpable organomegaly. MUSCULOSKELETAL: No joint swelling or deformity. EXTREMITIES: No cyanosis, clubbing, or pedal edema. NEUROLOGICAL: Gross neurological examination did not reveal any focal deficits. SKIN: No rashes. Assessment and Plan Plan: -Shortness of breath, acute hypoxic respiratory failure: Secondary to possible atypical pneumonia , covid 19, ruled out. Pulmonary embolism was ruled out -Mildly elevated troponins, repeat troponins are negative, her chest pain is musculoskeletal from coughing -History of DVT in the past -gastric esophageal reflux disease - hypertension -Coronary artery disease -COPD without any significant exacerbation Patient Condition at Discharge: Good Plan - Discharge Summary Discharge Rx Participant: No New Discharge Prescriptions: New Cefuroxime Axetil [Ceftin] 500 mg PO BID 6 Days #12 tab Azithromycin [Zithromax] 500 mg PO DAILY@1800 #5 tab Continue Metoprolol Succinate (ER) [Toprol XL] 25 mg PO DAILY estradioL [Estrace] 0.5 mg PO DAILY rOPINIRole HCL [Requip] 1 mg PO HS Sertraline [Zoloft] 150 mg PO DAILY #30 tab busPIRone HCl [Buspar] 15 mg PO BID #60 tab Albuterol Nebulized [Ventolin Nebulized] 2.5 mg INHALATION RT-Q6H Cholestyramine/Aspartame [Cholestyramine Light Powder] 4 gm PO DAILY ARIPiprazole 5 mg PO DAILY Albuterol Sulfate [Ventolin HFA] 1 - 2 puff INHALATION RT-Q6H ALPRAZolam [Xanax] 1 mg PO BID PRN PRN Reason: Anxiety Fluticasone/Umeclidin/Vilanter [Trelegy Ellipta 100-62.5-25] 1 puff INHALATION RT-DAILY OLANZapine [ZyPREXA] 5 mg PO BID Multivitamins, Thera [Multivitamin (formulary)] 1 tab PO DAILY Discharge Medication List Metoprolol Succinate (ER) [Toprol XL] 25 mg PO DAILY 09/25/17 [History] estradioL [Estrace] 0.5 mg PO DAILY 09/25/17 [History] rOPINIRole HCL [Requip] 1 mg PO HS 02/06/20 [History] Sertraline [Zoloft] 150 mg PO DAILY #30 tab 02/13/20 [Rx] busPIRone HCl [Buspar] 15 mg PO BID #60 tab 02/13/20 [Rx] ALPRAZolam [Xanax] 1 mg PO BID PRN 08/07/20 [History] ARIPiprazole 5 mg PO DAILY 08/07/20 [History] Albuterol Nebulized [Ventolin Nebulized] 2.5 mg INHALATION RT-Q6H 08/07/20 [History] Albuterol Sulfate [Ventolin HFA] 1 - 2 puff INHALATION RT-Q6H 08/07/20 [History] Cholestyramine/Aspartame [Cholestyramine Light Powder] 4 gm PO DAILY 08/07/20 [History] Fluticasone/Umeclidin/Vilanter [Trelegy Ellipta 100-62.5-25] 1 puff INHALATION RT-DAILY 08/07/20 [History] Multivitamins, Thera [Multivitamin (formulary)] 1 tab PO DAILY 08/07/20 [History] OLANZapine [ZyPREXA] 5 mg PO BID 08/07/20 [History] Azithromycin [Zithromax] 500 mg PO DAILY@1800 #5 tab 08/09/20 [Rx] Cefuroxime Axetil [Ceftin] 500 mg PO BID 6 Days #12 tab 08/09/20 [Rx] Follow up Appointment(s)/Referral(s): Parmjit Roblero MD [Primary Care Provider] - 3 Days Gerber Recinos MD [STAFF PHYSICIAN] - 1 Week Discharge Disposition: HOME SELF-CARE
[2020-08-09 12:14] LABS: Glucose,Whole Blood 145 mg/dL (75-99)
--- NOTE | 2020-08-09 16:24 | P.PN ---
Subjective Progress Note Date: 08/09/20 Principal diagnosis: Recurrent pneumonia, primarily involving the right lung On 08/09/2020 patient seen in follow-up on selective care unit, she is awake and alert, in no acute distress. Breathing seems to be comfortable at rest, but patient does complain of exertional dyspnea. She is on room air, with a pulse ox of 98%, hemodynamically she is stable, no fever or chills, sounds are diminished overall, with no significant rhonchi or wheezing, CTA chest showed no evidence of pulmonary embolism, and it showed diffuse groundglass changes involving the right lung which could be on the basis of pneumonitis, or pneumonia. Clinically patient has remained stable, no altered mentation, no worsening dyspnea, patient is on antibiotic coverage including azithromycin and Rocephin, nebulized bronchodilators and IV steroids, no acute issues overnight, today's labs have been reviewed, showing a blood cell, 3.0, hemoglobin of 30.7, electrolytes and renal profile were unremarkable. Coronavirus PCR was negative Objective - Vital Signs Vital signs: Vital Signs Temp 98.1 F 08/09/20 08:00 Pulse 68 08/09/20 15:52 Resp 18 08/09/20 15:52 BP 138/63 08/09/20 12:00 Pulse Ox 98 08/09/20 12:00 Intake & Output 08/08/20 08/09/20 08/09/20 18:59 06:59 18:59 Intake Total 776 480 Output Total 100 Balance 676 480 Weight 91.8 kg 91.6 kg Intake: Oral 776 480 Output: Urine 100 Other: Voiding Method Toilet Toilet # Voids 1 2 2 - Exam GENERAL EXAM: Alert, very pleasant, 65-year-old white female, on room air with pulse ox of 93% comfortable in no apparent distress. HEAD: Normocephalic/atraumatic. EYES: Normal reaction of pupils, equal size. Conjunctiva pink, sclera white. NOSE: Clear with pink turbinates. THROAT: No erythema or exudates. NECK: No masses, no JVD, no thyroid enlargement, no adenopathy. CHEST: No chest wall deformity. Symmetrical expansion. LUNGS: Equal air entry with no crackles, wheeze, rhonchi or dullness. CVS: Regular rate and rhythm, normal S1 and S2, no gallops, no murmurs, no rubs ABDOMEN: Soft, nontender. No hepatosplenomegaly, normal bowel sounds, no guarding or rigidity. EXTREMITIES: No clubbing, no edema, no cyanosis, 2+ pulses and upper and lower extremities. MUSCULOSKELETAL: Muscle strength and tone normal. SPINE: No scoliosis or deformity SKIN: No rashes CENTRAL NERVOUS SYSTEM: Alert and oriented -3. No focal deficits, tone is normal in all 4 extremities. PSYCHIATRIC: Alert and oriented -3. Appropriate affect. Intact judgment and insight. - Labs CBC & Chem 7: 08/09/20 05:43 08/09/20 05:43 Labs: Abnormal Lab Results - Last 24 Hours (Table) 08/08/20 08/09/20 08/09/20 Range/Units 20:09 05:43 05:43 WBC 3.0 L (3.8-10.6) k/uL Hgb 9.3 L (11.4-16.0) gm/dL Hct 30.7 L (34.0-46.0) % MCV 76.4 L (80.0-100.0) fL MCH 23.1 L (25.0-35.0) pg MCHC 30.2 L (31.0-37.0) g/dL RDW 16.7 H (11.5-15.5) % Plt Count 143 L (150-450) k/uL Chloride 109 H (98-107) mmol/L Glucose 163 H (74-99) mg/dL POC Glucose (mg/dL) 133 H (75-99) mg/dL 08/09/20 08/09/20 Range/Units 06:15 12:12 WBC (3.8-10.6) k/uL Hgb (11.4-16.0) gm/dL Hct (34.0-46.0) % MCV (80.0-100.0) fL MCH (25.0-35.0) pg MCHC (31.0-37.0) g/dL RDW (11.5-15.5) % Plt Count (150-450) k/uL Chloride (98-107) mmol/L Glucose (74-99) mg/dL POC Glucose (mg/dL) 155 H 145 H (75-99) mg/dL Microbiology - Last 24 Hours (Table) 08/07/20 17:35 Blood Culture - Preliminary Blood No Growth after 24 hours Assessment and Plan Plan: Assessment: #1. Dyspnea, with acute hypoxic respiratory failure secondary to possible atypical pneumonia, quit 19 ruled out, pulmonary embolism was ruled out #2. Status post bronchoscopy with BAL and sampling, with negative cultures #3. Previous history of tobacco use, currently in remission #4. History of DVT on Coumadin #5. History of GERD/reflux #6. History of hypertension #7. History of myocardial infarction #8. Peripheral vascular occlusive disease #9. Status post bariatric surgery for obesity #10. Iron deficiency anemia #11. History of MRSA wound infection Plan: Patient is doing well, no acute events overnight, no fever or chills, has been treated with combination of Rocephin and Zithromax, vital signs have been stable, no altered mentation, breathing easier, although still has some exertional dyspnea, no significant cough or congestion or wheezing. From pulmonary perspective she stable for discharge home today, with outpatient follow-up with Dr. Recinos in the office in 7-10 days I performed a history & physical examination of the patient and discussed their management with my nurse practitioner, Shikha Altman. I reviewed the nurse pra ctitioner's note and agree with the documented findings and plan of care. Lung sounds are positive for diminished breath sounds. The findings and the impression was discussed with the patient. I attest to the documentation by the nurse practitioner. Time with Patient: Less than 30
[2020-08-09 17:37] LABS: Glucose,Whole Blood 168 mg/dL (75-99)
[2020-08-09] MEDS: AZITHROMYCIN 500 MG TAB PO SCH (18:39)
[2020-08-09] MEDS: INSULIN ASPART (NovoLOG) 100 UNIT/ML VIAL SQ SCH (18:39)
[2020-08-09 20:39] LABS: Glucose,Whole Blood 172 mg/dL (75-99)
[2020-08-09] MEDS: ALPRAZolam 1 MG TAB PO PRN (21:10)
[2020-08-10 06:15] LABS: Glucose,Whole Blood 144 mg/dL (75-99)
[2020-08-10] MEDS: methylPREDNISolone SOD SUCCI 40 MG/ML 1 ML VIAL IV SCH ×2 (06:32→11:43)
[2020-08-10] MEDS: SYMBICORT 80-4.5 MCG INHALER INHALATION SCH (08:44)
[2020-08-10] MEDS: IPRATROPIUM-ALBUTEROL 3 ML NEB INHALATION SCH ×2 (08:44→13:11)
[2020-08-10] MEDS: ASPARTAME PO SCH (09:02)
[2020-08-10] MEDS: CHOLESTYRAMINE PO SCH (09:02)
[2020-08-10] MEDS: METOPROLOL SUCCINATE (ER) 25 MG TAB.ER.24H PO SCH (09:09)
[2020-08-10] MEDS: ENOXAPARIN 40 MG/0.4 ML SYRINGE SQ SCH (09:09)
[2020-08-10] MEDS: OLANZapine 5 MG TAB PO SCH (09:09)
[2020-08-10] MEDS: busPIRone HCl 5 MG TAB PO SCH (09:09)
[2020-08-10] MEDS: MULTIVITAMINS, THERA 1 EACH TAB PO SCH (09:10)
[2020-08-10] MEDS: SERTRALINE 50 MG TAB PO SCH (09:10)
[2020-08-10] MEDS: ARIPiprazole 5 MG TAB PO SCH (09:10)
[2020-08-10 11:13] VITALS: TEMP 97.8
--- NOTE | 2020-08-10 11:18 | P.PN ---
Subjective Progress Note Date: 08/10/20 Principal diagnosis: Recurrent pneumonia, primarily involving the right lung The patient is seen today 08/10/2020 and follow-up on the selective care unit. She is currently sitting up in a chair at bedside. Awake and alert in no acute distress. Maintaining good O2 saturations in the 90s on room air. No worsening shortness of breath, cough or congestion. Plan is for discharge home today. Objective - Vital Signs Vital signs: Vital Signs Temp 97.8 F 08/10/20 08:00 Pulse 68 08/10/20 08:56 Resp 18 08/10/20 08:00 BP 141/86 08/10/20 08:00 Pulse Ox 96 08/10/20 08:00 Intake & Output 08/09/20 08/10/20 08/10/20 18:59 06:59 18:59 Intake Total 480 Balance 480 Weight 94.5 kg Intake: Oral 480 Other: Voiding Method Toilet # Voids 2 1 1 - Exam GENERAL EXAM: Alert, pleasant 65-year-old female patient, on room air comfortable in no apparent distress. HEAD: Normocephalic. EYES: Normal reaction of pupils, equal size. NOSE: Clear with pink turbinates. THROAT: No erythema or exudates. NECK: No masses, no JVD. CHEST: No chest wall deformity. LUNGS: Equal air entry with no crackles, wheeze, rhonchi or dullness. CVS: S1 and S2 normal with no audible murmur, regular rhythm. ABDOMEN: No hepatosplenomegaly, normal bowel sounds, no guarding or rigidity. SPINE: No scoliosis or deformity SKIN: No rashes CENTRAL NERVOUS SYSTEM: No focal deficits, tone is normal in all 4 extremities. EXTREMITIES: There is no peripheral edema. No clubbing, no cyanosis. Peripheral pulses are intact. - Labs CBC & Chem 7: 08/09/20 05:43 08/09/20 05:43 Labs: Abnormal Lab Results - Last 24 Hours (Table) 08/09/20 08/09/20 08/09/20 Range/Units 05:43 12:12 17:17 POC Glucose (mg/dL) 145 H 168 H (75-99) mg/dL Procalcitonin 0.47 H (0.02-0.09) ng/mL 09/10/20 09/11/20 Range/Units 20:17 06:10 POC Glucose (mg/dL) 172 H 144 H (75-99) mg/dL Procalcitonin (0.02-0.09) ng/mL Microbiology - Last 24 Hours (Table) 08/07/20 17:35 Blood Culture - Preliminary Blood No Growth after 48 hours Assessment and Plan Assessment: #1. Dyspnea, with acute hypoxic respiratory failure secondary to possible atypical pneumonia, CoVID 19 ruled out, pulmonary embolism was ruled out #2. Status post bronchoscopy with BAL and sampling, with negative cultures #3. Previous history of tobacco use, currently in remission #4. History of DVT on Coumadin #5. History of GERD/reflux #6. History of hypertension #7. History of myocardial infarction #8. Peripheral vascular occlusive disease #9. Status post bariatric surgery for obesity #10. Iron deficiency anemia #11. History of MRSA wound infection Plan: The patient was seen and evaluated by Dr. Recinos She is cleared for discharge from the pulmonary standpoint Follow up in our office in 1-2 weeks' time Complete a course of Levaquin I, the cosigning physician, performed a history & physical examination of the patient. Lungs sounds are clear. Maintaining good O2 saturations in the 90s on room air. I discussed the assessment and plan of care with my nurse practition er, Yumiko Robles. I attest to the above note as dictated by her.
--- NOTE | 2020-08-10 11:31 | P.DS ---
Providers Date of admission: 08/10/20 08:22 Attending physician: Geovanna Gandara Consults: 08/07/20 17:24 Consult Physician Routine Consulting Provider: Gerber Recinos Consult Reason/Comments: known Do you want consulting provider notified?: Yes Primary care physician: Annika Parnell [facility] Course: 65-year-old female was admitted secondary to possible pneumonia possibly atypical pneumonia there is no lobar infiltrate CT angios the chest was obtained rule out pulmonary embolism., COVID 19 was ruled out. Patient is doing well and will ablate the patient without oxygen and patient doesn't require any as and patient will be discharged on the 6 more days of antibiotics. Patient is not in COPD exacerbation and do not believe patient will need any systemic steroids unless pulmonary believes then we'll give a prescription of oral steroids. 08/10/2020 Patient is feeling much better today and will be discharged today and levofloxacin as recommended by pulmonary PHYSICAL EXAMINATION: GENERAL: The patient is alert and oriented x3, not in any acute distress. Well developed, well nourished. HEENT: Pupils are round and equally reacting to light. EOMI. No scleral icterus. No conjunctival pallor. Normocephalic, atraumatic. No pharyngeal erythema. No thyromegaly. CARDIOVASCULAR: S1 and S2 present. No murmurs, rubs, or gallops. PULMONARY: Chest is clear to auscultation, no wheezing or crackles. ABDOMEN: Soft, nontender, nondistended, normoactive bowel sounds. No palpable organomegaly. MUSCULOSKELETAL: No joint swelling or deformity. EXTREMITIES: No cyanosis, clubbing, or pedal edema. NEUROLOGICAL: Gross neurological examination did not reveal any focal deficits. SKIN: No rashes. Assessment and Plan Plan: -Shortness of breath, acute hypoxic respiratory failure: Secondary to possible atypical pneumonia , covid 19, ruled out. Pulmonary embolism was ruled out -Mildly elevated troponins, repeat troponins are negative, her chest pain is musculoskeletal from coughing -History of DVT in the past -gastric esophageal reflux disease - hypertension -Coronary artery disease -COPD without any significant exacerbation Patient Condition at Discharge: Good Plan - Discharge Summary Discharge Rx Participant: No New Discharge Prescriptions: New Levofloxacin [Levaquin] 500 mg PO DAILY #5 tab Continue Metoprolol Succinate (ER) [Toprol XL] 25 mg PO DAILY estradioL [Estrace] 0.5 mg PO DAILY rOPINIRole HCL [Requip] 1 mg PO HS Sertraline [Zoloft] 150 mg PO DAILY #30 tab busPIRone HCl [Buspar] 15 mg PO BID #60 tab Albuterol Nebulized [Ventolin Nebulized] 2.5 mg INHALATION RT-Q6H Cholestyramine/Aspartame [Cholestyramine Light Powder] 4 gm PO DAILY ARIPiprazole 5 mg PO DAILY Albuterol Sulfate [Ventolin HFA] 1 - 2 puff INHALATION RT-Q6H ALPRAZolam [Xanax] 1 mg PO BID PRN PRN Reason: Anxiety Fluticasone/Umeclidin/Vilanter [Trelegy Ellipta 100-62.5-25] 1 puff INHALATION RT-DAILY OLANZapine [ZyPREXA] 5 mg PO BID Multivitamins, Thera [Multivitamin (formulary)] 1 tab PO DAILY Discharge Medication List Metoprolol Succinate (ER) [Toprol XL] 25 mg PO DAILY 09/25/17 [History] estradioL [Estrace] 0.5 mg PO DAILY 09/25/17 [History] rOPINIRole HCL [Requip] 1 mg PO HS 02/06/20 [History] Sertraline [Zoloft] 150 mg PO DAILY #30 tab 02/13/20 [Rx] busPIRone HCl [Buspar] 15 mg PO BID #60 tab 02/13/20 [Rx] ALPRAZolam [Xanax] 1 mg PO BID PRN 08/07/20 [History] ARIPiprazole 5 mg PO DAILY 08/07/20 [History] Albuterol Nebulized [Ventolin Nebulized] 2.5 mg INHALATION RT-Q6H 08/07/20 [History] Albuterol Sulfate [Ventolin HFA] 1 - 2 puff INHALATION RT-Q6H 08/07/20 [History] Cholestyramine/Aspartame [Cholestyramine Light Powder] 4 gm PO DAILY 08/07/20 [History] Fluticasone/Umeclidin/Vilanter [Trelegy Ellipta 100-62.5-25] 1 puff INHALATION RT-DAILY 08/07/20 [History] Multivitamins, Thera [Multivitamin (formulary)] 1 tab PO DAILY 08/07/20 [History] OLANZapine [ZyPREXA] 5 mg PO BID 08/07/20 [History] Levofloxacin [Levaquin] 500 mg PO DAILY #5 tab 08/10/20 [Rx] Follow up Appointment(s)/Referral(s): Parmjit Roblero MD [Primary Care Provider] - 08/15/20 10:40 am Gerber Recinos MD [STAFF PHYSICIAN] - 08/24/20 2:45 pm
[2020-08-10 11:36] LABS: Glucose,Whole Blood 137 mg/dL (75-99)
[2020-08-10 12:20] VITALS: BP 158/67; PULSE 62
== END 2020-08-10 15:05 | disposition home or self-care (01) | DRG 193 ==
LOC: EC 15:00 → 3SCARD 17:42 → OBSVTOIN 08-10 08:22
PROVIDERS: ADMIT Hospitalist; ATTEND Hospitalist
DX: J18.9 Pneumonia, unspecified organism (principal); J96.01 Acute respiratory failure with hypoxia; Z20.828 Contact with and (suspected) exposure to other viral communicable diseases; I50.9 Heart failure, unspecified; I11.0 Hypertensive heart disease with heart failure; I73.9 Peripheral vascular disease, unspecified; J43.9 Emphysema, unspecified; E66.9 Obesity, unspecified; D50.9 Iron deficiency anemia, unspecified; K21.9 Gastro-esophageal reflux disease without esophagitis; G25.81 Restless legs syndrome; F41.0 Panic disorder [episodic paroxysmal anxiety]; I25.10 Atherosclerotic heart disease of native coronary artery without angina pectoris; R79.89 Other specified abnormal findings of blood chemistry; I25.2 Old myocardial infarction; Z71.3 Dietary counseling and surveillance; Z68.34 Body mass index [BMI] 34.0-34.9, adult; Z79.899 Other long term (current) drug therapy; Z98.84 Bariatric surgery status; Z86.718 Personal history of other venous thrombosis and embolism; Z86.14 Personal history of Methicillin resistant Staphylococcus aureus infection; Z90.710 Acquired absence of both cervix and uterus; Z98.890 Other specified postprocedural states; Z87.01 Personal history of pneumonia (recurrent); Z90.49 Acquired absence of other specified parts of digestive tract; Z87.81 Personal history of (healed) traumatic fracture; Z95.820 Peripheral vascular angioplasty status with implants and grafts; Z87.891 Personal history of nicotine dependence; Z86.010 Personal history of colon polyps; Z82.3 Family history of stroke; Z83.1 Family history of other infectious and parasitic diseases
CPT/HCPCS: 36415; 71046; 71275; 80048; 80053; 82550; 83605; 83735; 83880; 84145; 84484; 85025; 85027; 85379; 85610; 85730; 87040; 87449; 93005; 94640; 96365; 96366; 96368; 99285

== ENCOUNTER → 2020-08-24 | Outpatient (CLI) | payer MEDICARE | END | disposition home or self-care (01) | LOC: LABWHC1 15:12 | PROVIDERS: ATTEND Internal Medicine Critical Care Medicine | DX: J44.9 Chronic obstructive pulmonary disease, unspecified (principal) | CPT/HCPCS: 36415; 82784 ==

== ENCOUNTER 2020-08-26 14:06 | Observation (INO) | payer MEDICARE ==
--- NOTE | 2020-08-26 14:29 | ED ---
SOB HPI - General Source: patient Mode of arrival: wheelchair Limitations: no limitations <Luis Bermudez - Last Filed: 08/26/20 16:49> <Georgie Dunn - Last Filed: 08/27/20 14:35> - General Chief Complaint: Shortness of Breath Stated Complaint: ONUR - pnuemonia Time Seen by Provider: 08/26/20 14:23 - History of Present Illness Initial Comments: Patient is a 65-year-old female presenting to emergency Department with chief complaint of shortness of breath. Patient states she was discharged from the hospital about 15 days ago for pneumonia. Patient states she continued to have shortness of breath after discharge, however now she states it is getting worse. She does report dyspnea on exertion. States she saw 3 days ago and had laboratory work obtained was still waiting for the results. Patient reports no she also has some lower right-sided chest pressure without any radiation. States this was also present when she was diagnosed with pneumonia but it was never addressed. She does have history of myocardial infarction. Patient is not a smoker, no night sweats or chills, no direct exposure to known Covid patient. She is not coughing, wheezing. (Luis Bermudez) - Related Data Home Medications Medication Instructions Recorded Confirmed Metoprolol Succinate (ER) [Toprol 25 mg PO DAILY 09/25/17 08/26/20 XL] estradioL [Estrace] 0.5 mg PO DAILY 09/25/17 08/26/20 rOPINIRole HCL [Requip] 1 mg PO HS 02/06/20 08/26/20 ALPRAZolam [Xanax] 1 mg PO BID PRN 08/07/20 08/26/20 ARIPiprazole 5 mg PO DAILY 08/07/20 08/26/20 Albuterol Nebulized [Ventolin 2.5 mg INHALATION RT-Q6H 08/07/20 08/26/20 Nebulized] Albuterol Sulfate [Ventolin HFA] 1 - 2 puff INHALATION RT-Q6H 08/07/20 08/26/20 Cholestyramine/Aspartame 4 gm PO DAILY 08/07/20 08/26/20 [Cholestyramine Light Powder] Fluticasone/Umeclidin/Vilanter 1 puff INHALATION RT-DAILY 08/07/20 08/26/20 [Trelegy Ellipta 100-62.5-25] Multivitamins, Thera [Multivitamin 1 tab PO DAILY 08/07/20 08/26/20 (formulary)] OLANZapine [ZyPREXA] 5 mg PO BID 08/07/20 08/26/20 Cyanocobalamin [Vitamin B-12 1,000 mcg SQ FR 08/26/20 08/26/20 Injection] Previous Rx's Medication Instructions Recorded Sertraline [Zoloft] 150 mg PO DAILY #30 tab 02/13/20 busPIRone HCl [Buspar] 15 mg PO BID #60 tab 02/13/20 Allergies Allergy/AdvReac Type Severity Reaction Status Date / Time No Known Allergies Allergy Verified 08/26/20 21:57 Review of Systems ROS Other: All systems not noted in ROS Statement are negative. <Luis Bermudez - Last Filed: 08/26/20 16:49> ROS Other: All systems not noted in ROS Statement are negative. <Georgie Dunn - Last Filed: 08/27/20 14:35> ROS Statement: Those systems with pertinent positive or pertinent negative responses have been documented in the HPI. Past Medical History Past Medical History: COPD, Deep Vein Thrombosis (DVT), GERD/Reflux, Hypertension, Myocardial Infarction (GA), Pneumonia, Vascular Disorder Additional Past Medical History / Comment(s): Previous history of gastric bypass surgery for obesity, remote history of a right lower extremity DVT 1996, peripheral vascular disease with previous angioplasty, restless leg syndrome, iron deficiency, COPD, Last Myocardial Infarction Date:: 10/2014 History of Any Multi-Drug Resistant Organisms: MRSA Date of last positivie culture/infection: 2000 MDRO Source:: wound Past Surgical History: Appendectomy, Bariatric Surgery, Breast Surgery, Cholecystectomy, Heart Catheterization, Hysterectomy, Orthopedic Surgery Additional Past Surgical History / Comment(s): Gastric bypass and subsequent multiple surgeries d/t incision did not heal properly and bowel was nicked, exploratory laparotomies, bilateral fem/pop bypass/stents, recent L wrist fracture with sx/hardware, bilateral feet bunionectomies, L rotator cuff repair, L knee arthroscopy, L breast benign bx, EGD, colonoscopies/benign polypectomy Past Anesthesia/Blood Transfusion Reactions: No Reported Reaction Past Psychological History: Anxiety, Panic Disorder Smoking Status: Former smoker, Never smoker Past Alcohol Use History: Rare Past Drug Use History: None Reported - Past Family History Father Family Medical History: CVA/TIA, Pneumonia Additional Family Medical History / Comment(s): STROKE AT AGE 50. Father of pne at the age of 63 yrs. Mother Family Medical History: No Reported History Additional Family Medical History / Comment(s): Mother is healthy and 83 yrs old. <Luis Bermudez - Last Filed: 08/26/20 16:49> General Exam Limitations: no limitations General appearance: alert, in no apparent distress Head exam: Present: atraumatic, normocephalic, normal inspection Eye exam: Present: normal appearance, PERRL, EOMI Pupils: Present: normal accommodation ENT exam: Present: normal exam, normal oropharynx, mucous membranes moist, TM's normal bilaterally, normal external ear exam Neck exam: Present: normal inspection, full ROM. Absent: tenderness, meningismus Respiratory exam: Present: normal lung sounds bilaterally. Absent: respiratory distress, wheezes, rales, rhonchi, stridor, chest wall tenderness, accessory muscle use, decreased breath sounds Cardiovascular Exam: Present: regular rate, normal rhythm, normal heart sounds Extremities exam: Present: normal inspection, full ROM. Absent: tenderness Back exam: Present: normal inspection, full ROM. Absent: tenderness Neurological exam: Present: alert, oriented X3 Psychiatric exam: Present: normal affect, normal mood Skin exam: Present: warm, dry, intact, normal color <Luis Bermudez - Last Filed: 08/26/20 16:49> Course Vital Signs 08/26/20 08/26/20 08/26/20 14:19 15:23 15:30 Temperature 97.9 F Pulse Rate 65 59 L 56 L Respiratory 18 17 19 Rate Blood Pressure 150/62 153/73 153/73 O2 Sat by Pulse 97 95 Oximetry 08/26/20 08/26/20 08/26/20 16:00 16:30 17:00 Temperature Pulse Rate 59 L 58 L 54 L Respiratory 20 13 31 H Rate Blood Pressure 144/74 191/169 191/75 O2 Sat by Pulse 96 97 96 Oximetry 08/26/20 08/26/20 17:15 17:26 Temperature 96.8 F L Pulse Rate 57 L Respiratory 16 Rate Blood Pressure 159/72 O2 Sat by Pulse 96 Oximetry Medical Decision Making - Lab Data Result diagrams: 08/26/20 14:56 08/26/20 14:56 <Luis Bermudez - Last Filed: 08/26/20 16:49> - Lab Data Result diagrams: 08/27/20 07:48 08/27/20 07:48 <Georgie Dunn - Last Filed: 08/27/20 14:35> - Medical Decision Making Patient is a 65-year-old female with history of GA, COPD presents emergency Department with chief complaint of shortness of breath. On physical examination, patient is clear to auscultation. She also appears to have atypical chest pain with atypical features. X-ray reveals no acute processes. Coags within normal limits. CMP reveals anemia although disappears to have improved from her most recent laboratory work. D-dimer negative. Initial troches also negative. Patient will be admitted for further medical management and cardiac rule out. Case discussed with Admitting is Dr. Winters Cardiology and pulmonary on consult (Luis Bermudez) I was available for consultation in the emergency department. The history and physical exam were done by the midlevel provider. I was consulted for this patients care. I reviewed the case with the midlevel provider and based on their presentation of the patient, I agree with the assessment, medical decision making and plan of care as documented. Chart was dictated using [employer] dictation software. Attempts were made to correct any dictation errors however some typographical errors may persist. Patient was seen during a national state of emergency due to the Covid-19 pandemic. (Georgie Dunn) - Lab Data Lab Results 08/26/20 08/26/20 08/26/20 Range/Units 14:56 14:56 14:56 WBC 3.6 L (3.8-10.6) k/uL RBC 4.57 (3.80-5.40) m/uL Hgb 10.4 L (11.4-16.0) gm/dL Hct 33.6 L (34.0-46.0) % MCV 73.6 L (80.0-100.0) fL MCH 22.7 L (25.0-35.0) pg MCHC 30.8 L (31.0-37.0) g/dL RDW 16.5 H (11.5-15.5) % Plt Count 163 (150-450) k/uL Neutrophils % 61 % Lymphocytes % 29 % Monocytes % 6 % Eosinophils % 2 % Basophils % 1 % Neutrophils # 2.2 (1.3-7.7) k/uL Lymphocytes # 1.0 (1.0-4.8) k/uL Monocytes # 0.2 (0-1.0) k/uL Eosinophils # 0.1 (0-0.7) k/uL Basophils # 0.0 (0-0.2) k/uL Hypochromasia Moderate Anisocytosis Slight Microcytosis Moderate PT 10.1 (9.0-12.0) sec INR 1.0 (<1.2) APTT 22.3 (22.0-30.0) sec D-Dimer 0.45 (<0.60) mg/L FEU Sodium 136 L (137-145) mmol/L Potassium 4.9 (3.5-5.1) mmol/L Chloride 106 (98-107) mmol/L Carbon Dioxide 22 (22-30) mmol/L Anion Gap 8 mmol/L BUN 13 (7-17) mg/dL Creatinine 0.91 (0.52-1.04) mg/dL Est GFR (CKD-EPI)AfAm 76 (>60 ml/min/1.73 sqM) Est GFR (CKD-EPI)NonAf 66 (>60 ml/min/1.73 sqM) Glucose 67 L (74-99) mg/dL Plasma Lactic Acid Cristobal (0.7-2.0) mmol/L Calcium 8.8 (8.4-10.2) mg/dL Total Bilirubin 0.9 (0.2-1.3) mg/dL AST 50 H (14-36) U/L ALT 23 (4-34) U/L Alkaline Phosphatase 73 (38-126) U/L Troponin I (0.000-0.034) ng/mL C-Reactive Protein (<10.0) mg/L NT-Pro-B Natriuret Pep pg/mL Total Protein 6.8 (6.3-8.2) g/dL Albumin 4.1 (3.5-5.0) g/dL 08/26/20 08/26/20 08/26/20 Range/Units 14:56 14:56 14:56 WBC (3.8-10.6) k/uL RBC (3.80-5.40) m/uL Hgb (11.4-16.0) gm/dL Hct (34.0-46.0) % MCV (80.0-100.0) fL MCH (25.0-35.0) pg MCHC (31.0-37.0) g/dL RDW (11.5-15.5) % Plt Count (150-450) k/uL Neutrophils % % Lymphocytes % % Monocytes % % Eosinophils % % Basophils % % Neutrophils # (1.3-7.7) k/uL Lymphocytes # (1.0-4.8) k/uL Monocytes # (0-1.0) k/uL Eosinophils # (0-0.7) k/uL Basophils # (0-0.2) k/uL Hypochromasia Anisocytosis Microcytosis PT (9.0-12.0) sec INR (<1.2) APTT (22.0-30.0) sec D-Dimer (<0.60) mg/L FEU Sodium (137-145) mmol/L Potassium (3.5-5.1) mmol/L Chloride (98-107) mmol/L Carbon Dioxide (22-30) mmol/L Anion Gap mmol/L BUN (7-17) mg/dL Creatinine (0.52-1.04) mg/dL Est GFR (CKD-EPI)AfAm (>60 ml/min/1.73 sqM) Est GFR (CKD-EPI)NonAf (>60 ml/min/1.73 sqM) Glucose (74-99) mg/dL Plasma Lactic Acid Cristobal 1.6 (0.7-2.0) mmol/L Calcium (8.4-10.2) mg/dL Total Bilirubin (0.2-1.3) mg/dL AST (14-36) U/L ALT (4-34) U/L Alkaline Phosphatase (38-126) U/L Troponin I <0.012 (0.000-0.034) ng/mL C-Reactive Protein <5.0 (<10.0) mg/L NT-Pro-B Natriuret Pep pg/mL Total Protein (6.3-8.2) g/dL Albumin (3.5-5.0) g/dL 08/26/20 Range/Units 14:56 WBC (3.8-10.6) k/uL RBC (3.80-5.40) m/uL Hgb (11.4-16.0) gm/dL Hct (34.0-46.0) % MCV (80.0-100.0) fL MCH (25.0-35.0) pg MCHC (31.0-37.0) g/dL RDW (11.5-15.5) % Plt Count (150-450) k/uL Neutrophils % % Lymphocytes % % Monocytes % % Eosinophils % % Basophils % % Neutrophils # (1.3-7.7) k/uL Lymphocytes # (1.0-4.8) k/uL Monocytes # (0-1.0) k/uL Eosinophils # (0-0.7) k/uL Basophils # (0-0.2) k/uL Hypochromasia Anisocytosis Microcytosis PT (9.0-12.0) sec INR (<1.2) APTT (22.0-30.0) sec D-Dimer (<0.60) mg/L FEU Sodium (137-145) mmol/L Potassium (3.5-5.1) mmol/L Chloride (98-107) mmol/L Carbon Dioxide (22-30) mmol/L Anion Gap mmol/L BUN (7-17) mg/dL Creatinine (0.52-1.04) mg/dL Est GFR (CKD-EPI)AfAm (>60 ml/min/1.73 sqM) Est GFR (CKD-EPI)NonAf (>60 ml/min/1.73 sqM) Glucose (74-99) mg/dL Plasma Lactic Acid Cristobal (0.7-2.0) mmol/L Calcium (8.4-10.2) mg/dL Total Bilirubin (0.2-1.3) mg/dL AST (14-36) U/L ALT (4-34) U/L Alkaline Phosphatase (38-126) U/L Troponin I (0.000-0.034) ng/mL C-Reactive Protein (<10.0) mg/L NT-Pro-B Natriuret Pep 622 pg/mL Total Protein (6.3-8.2) g/dL Albumin (3.5-5.0) g/dL Disposition Is patient prescribed a controlled substance at d/c from ED?: No Time of Disposition: 16:51 <Luis Bermudez - Last Filed: 08/26/20 16:49> <Georgie Dunn - Last Filed: 08/27/20 14:35> Clinical Impression: Dyspnea on exertion, Chest pain Disposition: ADMITTED IP TO THIS HOSP Condition: Good
[2020-08-26] MEDS ORDERED: ASPIRIN 81 MG PO STA (14:38)
[2020-08-26 15:26] LABS: Anisocytosis Slight; Basophils % (A) 1 %; Eosinophils # (A) 0.1 k/uL (0-0.7); Eosinophils % (A) 2 %; HCT 33.6 % (34.0-46.0); HGB 10.4 gm/dL (11.4-16.0); Hypochromasia Moderate; Lymphocytes % (A) 29 %; MCH 22.7 pg (25.0-35.0); MCHC 30.8 g/dL (31.0-37.0); MCV 73.6 fL (80.0-100.0); Mean Platelet Volume 7.1; Microcytosis Moderate; Monocytes # (A) 0.2 k/uL (0-1.0); Monocytes % (A) 6 %; Neutrophils # (A) 2.2 k/uL (1.3-7.7); Neutrophils % (A) 61 %; Platelet Count 163 k/uL (150-450); RBC 4.57 m/uL (3.80-5.40); RDW 16.5 % (11.5-15.5); WBC 3.6 k/uL (3.8-10.6)
[2020-08-26 15:44] LABS: Calcium 8.8 mg/dL (8.4-10.2); Total Bilirubin 0.9 mg/dL (0.2-1.3)
[2020-08-26 15:52] LABS: Potassium 4.9 mmol/L (3.5-5.1)
[2020-08-26 15:53] LABS: Albumin 4.1 g/dL (3.5-5.0); Total Protein 6.8 g/dL (6.3-8.2)
[2020-08-26 16:04] LABS: D-Dimer 0.45 mg/L FEU (<0.60); Partial Thromboplastin Time 22.3 sec (22.0-30.0); Prothrombin Time 10.1 sec (9.0-12.0)
--- NOTE | 2020-08-26 16:32 | XR ---
EXAMINATION TYPE: XR chest 2V DATE OF EXAM: 08/26/2020 COMPARISON: 08/24/2020 HISTORY: Pneumonia TECHNIQUE: 2 views FINDINGS: There is no heart failure nor confluent pneumonic infiltrate. There are chest leads. Costop hrenic angles are clear. Bony thorax is intact. IMPRESSION: No active cardiopulmonary disease. Normal heart. No change.
[2020-08-26] MEDS ORDERED: NALOXONE 0.4 MG/ML 1 ML VIAL IV PRN (16:43)
[2020-08-26] MEDS ORDERED: SODIUM CHLORIDE 0.9% 1,000 ML IV SCH (16:45)
[2020-08-26] MEDS ORDERED: NITROGLYCERIN SL TABS 0.4 MG TAB SUBLINGUAL PRN (16:48)
[2020-08-26] MEDS ORDERED: CHOLESTYRAMINE (WITH SUGAR) 4 GM PACKET PO PRN (18:21)
[2020-08-26] MEDS ORDERED: IPRATROPIUM-ALBUTEROL 3 ML NEB INHALATION PRN (19:51)
[2020-08-26] MEDS ORDERED: HYDROcodone/APAP 5-325MG 1 EACH TAB PO PRN (19:52)
[2020-08-26] MEDS ORDERED: TEMAZEPAM 15 MG CAP PO PRN (19:52)
[2020-08-26] MEDS ORDERED: ALBUTEROL NEBULIZED 2.5 MG/3 ML INHALATION SCH (20:00)
[2020-08-26] MEDS ORDERED: AZITHROMYCIN 500 MG in SODIUM CHLORIDE 0.9% 250 ML IVPB SCH (20:00)
[2020-08-26] MEDS: FORMOTEROL FUMARATE 20 MCG/2 ML NEBU INHALATION SCH (20:35)
[2020-08-26] MEDS: IPRATROPIUM-ALBUTEROL 3 ML NEB INHALATION SCH (20:35)
[2020-08-26] MEDS: BUDESONIDE 1 MG/2 ML NEBU INHALATION SCH (20:35)
[2020-08-26] MEDS: INSULIN ASPART (NovoLOG) 100 UNIT/ML VIAL SQ SCH (20:42)
[2020-08-26 20:45] LABS: Glucose,Whole Blood 116 mg/dL (75-99)
[2020-08-26] MEDS: HEPARIN SODIUM,PORCINE 5,000 UNIT/ML 1 ML VIAL SQ SCH (20:54)
[2020-08-26] MEDS: OLANZapine 5 MG TAB PO SCH (20:55)
[2020-08-26] MEDS: busPIRone HCl 5 MG TAB PO SCH (20:55)
[2020-08-26] MEDS: ALPRAZolam 1 MG TAB PO PRN (20:55)
[2020-08-26] MEDS: methylPREDNISolone SOD SUCCI 125 MG/2 ML VIAL IV SCH (22:23)
[2020-08-26 23:21] LABS: Appearance,Urine Cloudy (Clear); Bacteria,Urine Rare /hpf; Bilirubin,Urine Negative (Negative); Blood,Urine Negative (Negative); Color,Urine Yellow; Glucose,Urine (UA) Negative (Negative); Ketones,Urine Negative (Negative); Leukocyte Esterase,Urine Negative (Negative); Mucus,Urine Few /hpf; Nitrite,Urine Negative (Negative); PH, Urine 5.5 (5.0-8.0); Protein,Urine Negative (Negative); RBC,Urine 1 /hpf (0-5); Specific Gravity,Urine 1.024 (1.001-1.035); Squamous Epithelial Cell,Urine 6 /hpf (0-4); Urobilinogen,Urine <2.0 mg/dL (<2.0); WBC,Urine 1 /hpf (0-5)
--- NOTE | 2020-08-27 00:42 | HP ---
HISTORY AND PHYSICAL DATE OF SERVICE: 08/26/2020 CHIEF COMPLAINT: Shortness of breath. HISTORY OF PRESENT ILLNESS: This 65-year-old woman with a past medical history of multiple medical problems including COPD, history of DVT, GERD, hypertension, history of myocardial infarction, history of pneumonia, previous history of gastric bypass, history of appendectomy, anxiety, panic disorder being followed by Dr. Roblero in the outpatient setting was previously admitted with recent pneumonia on multiple occasions recently. The patient was evaluated by Dr. Recinos. COPD was a possibility. Recent CT scan done earlier this month showed some ground-glass opacity on the right side probably evolving pneumonia and because of increased symptoms, the patient came to [facility] admitted for further evaluation. Patient complains of significant shortness of breath even at while given minimal exertion and also on short distance of walking. There is no history of any fever or rigors. No history of headache, loss of conscious, seizures. PAST MEDICAL HISTORY: History of COPD, DVT, GERD, myocardial infarction, pneumonia, vascular disorder, gastric bypass surgery. MEDICATIONS: Medications prior to admission, home medications are: 1. Abilify 5 mg p.o. daily. 2. Xanax. 3. Ventolin HFA. 4. Trelegy. 5. Cholestyramine. 6. Multivitamins. 7. Toprol-XL. 8. Zoloft. 9. Zyprexa. 10.Estrace. 11.BuSpar. 12.Requip. ALLERGIES: None. FAMILY HISTORY: History of CVA, TIA, pneumonia, stroke. SOCIAL HISTORY: Previous history of smoking. No history of alcohol intake. REVIEW OF SYSTEMS: ENT: No diminished hearing or diminished vision. CARDIOVASCULAR SYSTEM: As mentioned earlier. RESPIRATORY SYSTEM: As mentioned earlier. GI: No nausea. : No dysuria. NERVOUS SYSTEM: No numbness or weakness. ALLERGY/IMMUNOLOGY: No asthma or hayfever. MUSCULOSKELETAL: As mentioned earlier. HEMATOLOGY/ONCOLOGY: No history of anemia. ENDOCRINE: As mentioned earlier. CONSTITUTIONAL: As mentioned earlier. DERMATOLOGY: Negative. RHEUMATOLOGY negative. PSYCHIATRY: As mentioned earlier. PHYSICAL EXAMINATION: The patient is alert and oriented x3. Pulse 57, blood pressure 159/72, respiration 16, temperature 96.8, pulse ox 97% on room air. HEENT: Conjunctivae normal. Oral mucosa moist. NECK: No jugular venous distention. No carotid bruit. No lymph node enlargement. CARDIOVASCULAR: S1, S2 muffled. No S3, no S4. RESPIRATORY: Breath sounds diminished at the bases. A few scattered rhonchi and crackles. ABDOMEN: Soft, nontender. No mass palpable. LEGS: No edema, no swelling. NERVOUS SYSTEM: Higher functions as mentioned earlier. Moves all 4 limbs. No focal motor or sensory deficits. LYMPHATICS: No lymphadenopathy of the neck, axillae or groin. SKIN: No ulcer, rash or bleeding. JOINTS: No active deforming arthropathy. LABS: WBC 3.6, hemoglobin 10.4. Sodium is 136. Glucose 67. ASSESSMENT: 1. Shortness of breath for evaluation, possible chronic obstructive pulmonary disease acute exacerbation. 2. Rule out coronary artery disease. 3. Hyponatremia. 4. Anemia microcytic possibly nutritional origin. 5. History of nicotine dependence. 6. History of chronic obstructive pulmonary disease. 7. History of deep venous thrombosis. 8. Gastroesophageal reflux disease. 9. Hypertension. 10.History of recent abnormal CT scan. 11.History of myocardial infarction. 12.History of pneumonia. 13.History of gastric bypass surgery. 14.History of peripheral vascular disease and angioplasty. 15.History of restless legs syndrome. 16.History of iron deficiency anemia. 17.History of MRSA. 18.History of bariatric surgery. 19.History of cholecystectomy. 20.History of anxiety, panic disorder. 21.Remote history of nicotine dependence. 22.Obesity with body mass of 32.4. 23.FULL CODE. RECOMMENDATIONS AND DISCUSSION: This 65-year-old woman who presented with multiple complex medical issues, we will monitor the patient closely. Continue the current medications, continue symptomatic treatment. Will optimize the bronchodilator treatment, IV steroids. Cardiology consultation. Otherwise, I would also recommend a 2D echo with Doppler and a BNP. Prognosis guarded because of multiple complex medical issues. Further recommendations to follow. A copy of dictation forwarded to Dr. Roblero, who is the primary physician. MMODL / IJN: [id number] /
[2020-08-27] MEDS: methylPREDNISolone SOD SUCCI 125 MG/2 ML VIAL IV SCH ×3 (02:19→15:28)
[2020-08-27 06:48] LABS: Glucose,Whole Blood 193 mg/dL (75-99)
[2020-08-27] MEDS: INSULIN ASPART (NovoLOG) 100 UNIT/ML VIAL SQ SCH ×4 (07:00→20:08)
[2020-08-27] MEDS: PANTOPRAZOLE 40 MG TABLET PO SCH (07:00)
[2020-08-27] MEDS: FORMOTEROL FUMARATE 20 MCG/2 ML NEBU INHALATION SCH (07:24)
[2020-08-27] MEDS: BUDESONIDE 1 MG/2 ML NEBU INHALATION SCH (07:24)
[2020-08-27] MEDS: IPRATROPIUM-ALBUTEROL 3 ML NEB INHALATION SCH ×4 (07:24→19:08)
[2020-08-27] MEDS ORDERED: DOBUTamine DRIP for NUC MED 500 MG in DEXTROSE/WATER 1 250ML.BAG IV ONE (07:38)
[2020-08-27] MEDS ORDERED: NON FORMULARY DRUG (Fluticasone/Umeclidin/Vilanter [Trelegy Ellipta 100-62.5-25] 1 EACH Bl INHALATION SCH (08:00)
[2020-08-27] MEDS: HEPARIN SODIUM,PORCINE 5,000 UNIT/ML 1 ML VIAL SQ SCH ×2 (08:36→20:08)
[2020-08-27 08:40] LABS: Anisocytosis Slight; Basophils % (A) 0 %; Eosinophils % (A) 0 %; HGB 10.1 gm/dL (11.4-16.0); Hypochromasia Marked; Lymphocytes # (A) 0.5 k/uL (1.0-4.8); Lymphocytes % (A) 17 %; MCH 22.2 pg (25.0-35.0); MCHC 29.7 g/dL (31.0-37.0); MCV 74.8 fL (80.0-100.0); Microcytosis Slight; Monocytes % (A) 1 %; Neutrophils # (A) 2.1 k/uL (1.3-7.7); Neutrophils % (A) 81 %; Platelet Count 147 k/uL (150-450); RBC 4.54 m/uL (3.80-5.40); RDW 16.6 % (11.5-15.5); WBC 2.6 k/uL (3.8-10.6)
[2020-08-27] MEDS: MULTIVITAMINS, THERA 1 EACH TAB PO SCH (08:40)
[2020-08-27] MEDS: SERTRALINE 50 MG TAB PO SCH (08:40)
[2020-08-27] MEDS: busPIRone HCl 5 MG TAB PO SCH ×2 (08:40→20:07)
[2020-08-27] MEDS: OLANZapine 5 MG TAB PO SCH ×2 (08:41→11:26)
[2020-08-27 08:57] LABS: African American GFR (CKD) >90 (>60 ml/min/1.73 sqM); Anion Gap 6 mmol/L; Blood Urea Nitrogen 13 mg/dL (7-17); Calcium 8.6 mg/dL (8.4-10.2); Carbon Dioxide 22 mmol/L (22-30); Chloride 111 mmol/L (98-107); Cholesterol 242 mg/dL (<200); Glucose 179 mg/dL (74-99); HDL Cholesterol 92 mg/dL (40-60); LDL Cholesterol,Calculated 137 mg/dL (0-99); Non-African American GFR(CKD) 83 (>60 ml/min/1.73 sqM); Potassium 4.4 mmol/L (3.5-5.1); Sodium 139 mmol/L (137-145); Triglycerides 67 mg/dL (<150)
[2020-08-27] MEDS ORDERED: ARIPiprazole 5 MG TAB PO SCH (09:00)
[2020-08-27] MEDS ORDERED: ASPIRIN 325 MG TAB PO SCH (09:00)
--- NOTE | 2020-08-27 09:32 | P.CRDCN ---
History of Present Illness Consult date: 08/27/20 History of present illness: CHIEF COMPLAINT: Dyspnea on exertion HISTORY OF PRESENT ILLNESS: This is a 65-year old female with a past medical history significant for hypertension, COPD, and NSTEMI. Patient follows in the office with Dr. Buchanan. We have been asked to see the patient in consultation for dyspnea on exertion. Patient examined this morning at the bedside. She reports shortness of breath since last August. She states she has been hospitalized a few times for shortness of breath. She states she was hospitalized a few weeks ago and was treated with steroids and antibiotics. She states her shortness of breath has never really improved since her admission to the hospital. She reports being outside yesterday and her shortness of breath got so severe she came to the ER for evaluation. She has report having some chest pressure with her SOB. She also reports being diaphoretic yesterday. She currently denies ch est pressure or shortness of breath at the time of my examination. Patient reports having a cardiac cath performed approximately 7 years ago in [place]. She states she did not require any stents at that time. DIAGNOSTICS: EKG reveals sinus mechanism no acute ischemic changes. Chest xray no active cardiopulmonary process. Laboratory data: WBC 2.6. Hemoglobin 10.1. Platelet count 147. Sodium 139. Potassium 4.4. BUN 13. Creatinine 0.76. Troponin negative 3 Current home cardiac medications include Toprol 25 mg daily REVIEW OF SYSTEMS: At the time of my exam: CONSTITUTIONAL: Denies fever or chills. HEENT: Denies blurred vision, vision changes, or eye pain. Denies hemoptysis CARDIOVASCULAR: Denies chest pain, orthopnea, PND or palpitations RESPIRATORY: No shortness of breath. GASTROINTESTINAL: Denies abdominal pain. Denies nausea or vomiting. HEMATOLOGIC: Denies bleeding disorders. GENITOURINARY: Denies any blood in urine. SKIN: Denies pruitis. Denies rash. PHYSICAL EXAM: VITAL SIGNS: Reviewed. GENERAL: Well-developed in no acute distress. HEENT: Head is normocephalic. Pupils are equal, round. Sclerae anicteric. Mucous membranes of the mouth are moist. Neck supple. No JVD or thyromegaly LUNGS: Respirations even and unlabored. Lungs essentially clear to auscultation bilaterally. HEART: Regular rate and rhythm. S1 and S2 heard. ABDOMEN: Soft. Nondistended. Nontender. EXTREMITIES: Normal range of motion. No clubbing or cyanosis. Peripheral pulses intact. No lower extremity edema NEUROLOGIC: Awake and alert. Oriented x 3. ASSESSMENT: Dyspnea x 1 year Chest pressure, no evidence of acute coronary syndrome Hypertension COPD History of NSTEMI x 2 per patient History of nicotine dependence, in remission Obesity: BMI 32.4 PLAN: Resume home cardiac medications Patient to undergo dobutamine stress echo today Further recommendations pending results of stress test Nurse practitioner note has been reviewed by physician. Signing provider agrees with the documented findings, assessment, and plan of care. Past Medical History Past Medical History: COPD, Deep Vein Thrombosis (DVT), GERD/Reflux, Hypertension, Myocardial Infarction ([place]), Pneumonia, Vascular Disorder Additional Past Medical History / Comment(s): Previous history of gastric bypass surgery for obesity, remote history of a right lower extremity DVT 1996, peripheral vascular disease with previous angioplasty, restless leg syndrome, iron deficiency, COPD, Last Myocardial Infarction Date:: 10/2014 History of Any Multi-Drug Resistant Organisms: MRSA Date of last positivie culture/infection: 2000 MDRO Source:: abdominal wound Past Surgical History: Appendectomy, Bariatric Surgery, Breast Surgery, Cholecystectomy, Heart Catheterization, Hysterectomy, Orthopedic Surgery Additional Past Surgical History / Comment(s): Gastric bypass and subsequent multiple surgeries d/t incision did not heal properly and bowel was nicked, exploratory laparotomies, bilateral fem/pop bypass/stents, recent L wrist fracture with sx/hardware, bilateral feet bunionectomies, L rotator cuff repair, L knee arthroscopy, L breast benign bx, EGD, colonoscopies/benign polypectomy Past Anesthesia/Blood Transfusion Reactions: No Reported Reaction Past Psychological History: Anxiety, Panic Disorder Additional Psychological History / Comment(s): Pt resides with her spouse. She states she has high anxiety. Pt uses no assistive device. She drives. Smoking Status: Former smoker, Never smoker Past Alcohol Use History: Rare Additional Past Alcohol Use History / Comment(s): Pt started smoking in 1973 and quit in 2008. She was a ppd smoker. Past Drug Use History: None Reported - Past Family History Father Family Medical History: CVA/TIA, Pneumonia Additional Family Medical History / Comment(s): STROKE AT AGE 50. Father of pne at the age of 63 yrs. Mother Family Medical History: No Reported History Additional Family Medical History / Comment(s): Mother is healthy and 83 yrs old. Medications and Allergies Home Medications Medication Instructions Recorded Confirmed Type Metoprolol Succinate (ER) [Toprol 25 mg PO DAILY 09/25/17 08/26/20 History XL] estradioL [Estrace] 0.5 mg PO DAILY 09/25/17 08/26/20 History rOPINIRole HCL [Requip] 1 mg PO HS 02/06/20 08/26/20 History Sertraline [Zoloft] 150 mg PO DAILY #30 tab 02/13/20 08/26/20 Rx busPIRone HCl [Buspar] 15 mg PO BID #60 tab 02/13/20 08/26/20 Rx ALPRAZolam [Xanax] 1 mg PO BID PRN 08/07/20 08/26/20 History ARIPiprazole 5 mg PO DAILY 08/07/20 08/26/20 History Albuterol Nebulized [Ventolin 2.5 mg INHALATION RT-Q6H 08/07/20 08/26/20 History Nebulized] Albuterol Sulfate [Ventolin HFA] 1 - 2 puff INHALATION RT-Q6H 08/07/20 08/26/20 History Cholestyramine/Aspartame 4 gm PO DAILY 08/07/20 08/26/20 History [Cholestyramine Light Powder] Fluticasone/Umeclidin/Vilanter 1 puff INHALATION RT-DAILY 08/07/20 08/26/20 History [Trelegy Ellipta 100-62.5-25] Multivitamins, Thera [Multivitamin 1 tab PO DAILY 08/07/20 08/26/20 History (formulary)] OLANZapine [ZyPREXA] 5 mg PO BID 08/07/20 08/26/20 History Cyanocobalamin [Vitamin B-12 1,000 mcg SQ FR 08/26/20 08/26/20 History Injection] Allergies Allergy/AdvReac Type Severity Reaction Status Date / Time No Known Allergies Allergy Verified 08/26/20 21:57 Physical Exam Vitals: Vital Signs Temp Pulse Pulse Resp BP BP Pulse Ox 08/27/20 08:08 97.5 F L 71 14 159/70 95 08/27/20 07:48 60 08/27/20 07:35 60 08/27/20 07:34 60 08/27/20 07:24 60 08/27/20 04:30 98.3 F 68 17 151/71 95 08/26/20 20:53 59 L 08/26/20 20:49 59 L 08/26/20 20:48 59 L 08/26/20 20:37 57 L 08/26/20 19:30 98.2 F 65 17 157/69 96 08/26/20 18:10 97.8 F 67 20 136/57 97 08/26/20 17:26 96.8 F L 08/26/20 17:15 57 L 16 159/72 96 08/26/20 17:00 54 L 31 H 191/75 96 08/26/20 16:30 58 L 13 191/169 97 08/26/20 16:00 59 L 20 144/74 96 08/26/20 15:30 56 L 19 153/73 95 08/26/20 15:23 59 L 17 153/73 08/26/20 14:19 97.9 F 65 18 150/62 97 Intake and Output 08/26/20 08/27/20 08/27/20 22:59 06:59 14:59 Other: Voiding Method Toilet Toilet Weight 88.451 kg Results 08/27/20 07:48 08/27/20 07:48 Cardiac Enzymes 08/26/20 08/26/20 08/26/20 Range/Units 14:56 14:56 18:36 AST 50 H (14-36) U/L Troponin I <0.012 <0.012 (0.000-0.034) ng/mL 08/26/20 Range/Units 19:49 AST (14-36) U/L Troponin I <0.012 (0.000-0.034) ng/mL Coagulation 08/26/20 Range/Units 14:56 PT 10.1 (9.0-12.0) sec APTT 22.3 (22.0-30.0) sec Lipids 08/27/20 Range/Units 07:48 Triglycerides 67 (<150) mg/dL Cholesterol 242 H (<200) mg/dL HDL Cholesterol 92 H (40-60) mg/dL CBC 08/26/20 08/27/20 Range/Units 14:56 07:48 WBC 3.6 L 2.6 L (3.8-10.6) k/uL RBC 4.57 4.54 (3.80-5.40) m/uL Hgb 10.4 L 10.1 L (11.4-16.0) gm/dL Hct 33.6 L 34.0 (34.0-46.0) % Plt Count 163 147 L (150-450) k/uL Comprehensive Metabolic Panel 08/26/20 08/27/20 Range/Units 14:56 07:48 Sodium 136 L 139 (137-145) mmol/L Potassium 4.9 4.4 (3.5-5.1) mmol/L Chloride 106 111 H (98-107) mmol/L Carbon Dioxide 22 22 (22-30) mmol/L BUN 13 13 (7-17) mg/dL Creatinine 0.91 0.76 (0.52-1.04) mg/dL Glucose 67 L 179 H (74-99) mg/dL Calcium 8.8 8.6 (8.4-10.2) mg/dL AST 50 H (14-36) U/L ALT 23 (4-34) U/L Alkaline Phosphatase 73 (38-126) U/L Total Protein 6.8 (6.3-8.2) g/dL Albumin 4.1 (3.5-5.0) g/dL Current Medications Generic Name Dose Route Start Last Admin Trade Name Freq PRN Reason Stop Dose Admin Hydrocodone Bitart/Acetaminophen 1 each 08/26/20 19:52 Hydrocodone/Apap 5-325mg 1 Each Tab PO Q6HR PRN Pain Albuterol/Ipratropium 3 ml 08/26/20 20:00 08/27/20 07:24 Ipratropium-Albuterol 3 Ml Neb INHALATION 3 ml RT-QID VARUN Administration Albuterol/Ipratropium 3 ml 08/26/20 19:51 Ipratropium-Albuterol 3 Ml Neb INHALATION RT-QID PRN Shortness Of Breath Or Wheezing Alprazolam 1 mg 08/26/20 18:21 08/26/20 20:55 Alprazolam 1 Mg Tab PO 1 mg BID PRN Administration Anxiety Aripiprazole 5 mg 08/27/20 09:00 08/27/20 08:41 Aripiprazole 5 Mg Tab PO 5 mg DAILY VARUN Administration Budesonide 1 mg 08/26/20 20:00 08/27/20 07:24 Budesonide 1 Mg/2 Ml Nebu INHALATION 1 mg RT-BID VARUN Administration Buspirone HCl 15 mg 08/26/20 21:00 08/27/20 08:40 Buspirone Hcl 5 Mg Tab PO 15 mg BID VARUN Administration Cholestyramine Resin 4 gm 08/26/20 18:21 Cholestyramine (With Sugar) 4 Gm Packet PO DAILY PRN GI Upset Estradiol 0.5 mg 08/27/20 09:00 08/27/20 08:41 Estradiol 0.5 Mg Tab PO 0.5 mg DAILY VARUN Administration Formoterol Fumarate 20 mcg 08/26/20 20:00 08/27/20 07:24 Formoterol Fumarate 20 Mcg/2 Ml Nebu INHALATION 20 mcg RT-BID VARUN Administration Heparin Sodium (Porcine) 5,000 unit 08/26/20 21:00 08/27/20 08:36 Heparin Sodium,Porcine 5,000 Unit/Ml 1 Ml Vial SQ 5,000 unit Q12HR VARUN Administration Ceftriaxone Sodium 1 gm/ 50 mls @ 100 mls/hr 08/26/20 21:00 08/26/20 23:13 Sodium Chloride IVPB 100 mls/hr HS VARUN Administration Azithromycin 500 mg/ Sodium 250 mls @ 250 mls/hr 08/26/20 20:00 08/26/20 20:36 Chloride IVPB 250 mls/hr Q24H VARUN Administration Dobutamine HCl/Dextrose 500 mg 250 mls @ 26.535 mls/hr 08/27/20 07:38 / IV Solution IV 08/27/20 17:03 .Q9H26M ONE Protocol 10 MCG/KG/MIN Insulin Aspart 0 unit 08/26/20 21:00 08/27/20 07:00 Insulin Aspart (Novolog) 100 Unit/Ml Vial SQ 2 unit ACHS VARUN Administration Protocol Methylprednisolone Sodium Succinate 60 mg 08/26/20 20:00 08/27/20 08:35 Methylprednisolone Sod Succi 125 Mg/2 Ml Vial IV 60 mg Q6H VARUN Administration Metoprolol Succinate 25 mg 08/27/20 09:00 Metoprolol Succinate (Er) 25 Mg Tab.Er.24h PO DAILY [facility] Multivitamins 1 each 08/27/20 09:00 08/27/20 08:40 Multivitamins, Thera 1 Each Tab PO 1 each DAILY VARUN Administration Naloxone HCl 0.2 mg 08/26/20 16:43 Naloxone 0.4 Mg/Ml 1 Ml Vial IV Q2M PRN Opioid Reversal Nitroglycerin 0.4 mg 08/26/20 16:48 Nitroglycerin Sl Tabs 0.4 Mg Tab SUBLINGUAL Q5M PRN Chest Pain Olanzapine 5 mg 08/26/20 21:00 08/26/20 20:55 Olanzapine 5 Mg Tab PO 5 mg BID VARUN Administration Pantoprazole Sodium 40 mg 08/27/20 07:30 08/27/20 07:00 Pantoprazole 40 Mg Tablet PO 40 mg [id number] VARUN Administration Ropinirole HCl 1 mg 08/26/20 21:00 08/26/20 20:55 Ropinirole Hcl 1 Mg Tab PO 1 mg HS VARUN Administration Sertraline HCl 150 mg 08/27/20 09:00 08/27/20 08:40 Sertraline 50 Mg Tab PO 150 mg DAILY VARUN Administration Temazepam 15 mg 08/26/20 19:52 Temazepam 15 Mg Cap PO HS PRN Insomnia Intake and Output 08/26/20 08/27/20 08/27/20 22:59 06:59 14:59 Other: Voiding Method Toilet Toilet Weight 88.451 kg 08/27/20 07:48 08/27/20 07:48
[2020-08-27 09:52] LABS: Erythrocyte Sedimentation Rate 13 mm/hr (0-20)
[2020-08-27] MEDS: METOPROLOL SUCCINATE (ER) 25 MG TAB.ER.24H PO SCH (11:25)
--- NOTE | 2020-08-27 11:31 | ECHOF ---
Referral Reason:shortness of breath MEASUREMENTS -------- HEIGHT: 165.1 cm WEIGHT: 88.5 kg BP: 151/71 RVIDd: 3.4 cm (< 3.3) IVSd: 1.0 cm (0.6 - 1.1) LVIDd: 4.0 cm (3.9 - 5.3) LVPWd: 1.2 cm (0.6 - 1.1) IVSs: 1.4 cm LVIDs: 2.2 cm LVPWs: 1.5 cm LA Diam: 4.1 cm (2.7 - 3.8) LAESV Index (A-L): 34.94 ml/m Ao Diam: 2.8 cm (2.0 - 3.7) AV Cusp: 1.7 cm (1.5 - 2.6) MV EXCURSION: 22.213 mm (> 18.000) MV EF SLOPE: 80 mm/s (70 - 150) EPSS: 0.3 cm MV E Rah: 1.03 m/s MV DecT: 189 ms MV A Rah: 0.81 m/s MV E/A Ratio: 1.27 RAP: 5.00 mmHg RVSP: 22.41 mmHg FINDINGS -------- Sinus rhythm. This was a technically good study. LV size, wall thickness and systolic function are normal, with an EF greater than 55%. The left dominick tricular size is normal. The diastolic filling pattern is normal for the age of the patient 12.29. The right ventricle is normal in size. The left atrium is mildly dilated. LA is midly dilated 29-33ml/m2. The right atrial size is normal. The aortic valve is trileaflet, and appears structurally normal. No aortic stenosis or regurgitation. Mild mitral regurgitation is present. Mild tricuspid regurgitation present. Right ventricular systolic pressure is normal at < 35 mmHg. There is no pulmonic regurgitation present. The aortic root size is normal. There is no pericardial effusion. CONCLUSIONS -------- 1. LV size, wall thickness and systolic function are normal, with an EF greater than 55%. 2. The left ventricular size is normal. 3. The diastolic filling pattern is normal for the age of the patient 12.29 4. The right ventricle is normal in size. 5. The left atrium is mildly dilated. 6. LA is midly dilated 29-33ml/m2. 7. The right atrial size is normal. 8. Mild mitral regurgitation is present. 9. Mild tricuspid regurgitation present. 10. There is no pericardial effusion. DICE PERSON: Hafsa Silva RDCS
[2020-08-27 12:09] LABS: Glucose,Whole Blood 222 mg/dL (75-99)
[2020-08-27 17:14] LABS: Glucose,Whole Blood 158 mg/dL (75-99)
--- NOTE | 2020-08-27 17:43 | PN ---
PROGRESS NOTE DATE OF SERVICE: 08/27/2020 This 65-year-old woman with a past medical history of multiple medical problems was admitted with significant shortness of breath. The patient has significant shortness of breath even on taking small steps. The patient possibly had COPD. Patient also had a CT scan last time. A 2D echo with Doppler was done by Cardiology and a stress test was also recommended. The 2D echo showed ejection fraction more than 55%, and diastolic filling pattern was normal. Mild regurgitations were noted. Past medical history reviewed. REVIEW OF SYSTEMS: CARDIOVASCULAR SYSTEM: No angina, palpitations. RESPIRATORY SYSTEM: As mentioned earlier. GI: As mentioned earlier. : No dysuria or retention. NERVOUS SYSTEM: No numbness, weakness. CURRENT MEDICATIONS: Reviewed. They include [place] 5 mg q.6 p.r.n., DuoNeb, Xanax, Abilify, BuSpar, Questran, dobutamine, Estrace, heparin, Toprol-XL, multivitamins, Narcan, Norvasc, Zyprexa, Protonix, Requip, Zoloft, Restoril. PHYSICAL EXAMINATION: Patient is alert, oriented x3. Pulse 93, blood pressure 162/69, respiration 18, temperature 98 degrees, pulse ox 96% on room air. HEENT: Conjunctivae normal. NECK: No jugular venous distention. CARDIOVASCULAR SYSTEM: S1, S2 muffled. RESPIRATORY SYSTEM: Breath sounds diminished at the bases. A few scattered rhonchi and crackles. ABDOMEN: Soft, non-tender. LEGS: No edema. No swelling. NERVOUS SYSTEM: No focal deficit. LABS: WBC 2.6, hemoglobin 10.1. Sodium 139, potassium 4.4. Cholesterol is 242, LDL is 137 and HDL is 92. ASSESSMENT: 1. Shortness of breath for evaluation; possible chronic obstructive pulmonary disease, acute exacerbation. 2. Rule out coronary artery disease. 3. Hyponatremia. 4. Anemia, microcytic, possibly nutritional in origin. 5. History of nicotine dependence. 6. History of chronic obstructive pulmonary disease. 7. History of deep venous thrombosis. 8. History of gastroesophageal reflux disease. 9. Hypertension. 10.History of recent abnormal CT scan. 11.History of myocardial infarction. 12.History of pneumonia. 13.Hyperlipidemia. 14.History of gastric bypass surgery. 15.Peripheral vascular disease and angioplasty. 16.History of restless legs syndrome. 17.History of iron deficiency anemia. 18.History of methicillin-resistant Staphylococcus aeruginosa. 19.History of bariatric surgery. 20.History of cholecystectomy. 21.History of anxiety, panic disorder. 22.Remote history of nicotine dependence. 23.Obesity with body mass index 32.4. 24.FULL CODE. RECOMMENDATIONS AND DISCUSSION: In this 65-year-old woman who presented with multiple complex medical issues, we will monitor the patient closely, continue the current medication, continue symptomatic treatment. Otherwise, intensive bronchodilator treatment. Cardiology workup. Add Lipitor to the current regimen. The previous CT scan of the chest was done earlier this month. Will continue to monitor. Guarded prognosis. Further recommendations to follow. MMODL / IJN: [id number] /
[2020-08-27 20:05] LABS: Glucose,Whole Blood 234 mg/dL (75-99)
[2020-08-27] MEDS: ALPRAZolam 1 MG TAB PO PRN (21:53)
--- NOTE | 2020-08-27 22:00 | CONS ---
CONSULTATION PULMONARY/CRITICAL CARE CONSULTATION: DATE OF SERVICE: 08/27/2020 This is a 65-year-old female well known to our service. In fact, when she was in the hospital in early July, I saw her in consultation. Her chief complaint has always been shortness of breath. She states that with any activity she becomes profoundly short of breath. The patient apparently has been recently seen here in the hospital on multiple occasions with "pneumonia." She has been seeing Dr. Recinos in our office. Apparently he does not have a good explanation for the patient's shortness of breath. Her chest x-ray on this admission is normal. He even did a bronchoscopy on her with biopsies which were negative. She apparently was evaluated by Cardiology today and had a stress test, the results of which are pending. She really denies other complaints, including fever, chills, cough, phlegm production, etc. She does have some chest pressure per se. Her biggest issue is shortness of breath on even minimal activity. Today we walked around the unit. Her saturations remained in the mid to high 90s. Her heart rate was in the relatively normal range. She states that she was very short of breath. HOME MEDICATIONS: Reviewed. She is on Toprol, Estrace, Requip, Xanax, Aripiprazole, albuterol updrafts, albuterol inhaler, Trelegy, multiple vitamins, Zyprexa and vitamin B12. She is also on Zoloft and BuSpar. ALLERGIES: DENIED. MEDICAL HISTORY: Her medical history is positive for apparent COPD, DVT, GERD, hypertension, myocardial infarction, pneumonia, obesity with previous gastric bypass surgery, right lower extremity DVT, peripheral vascular occlusive disease, previous angioplasties of the legs, restless legs syndrome and iron deficiency anemia. Her last SC was back in 2013. She also has a prior history of methicillin-resistant Staph aureus infection. SURGICAL HISTORY: Surgical history includes appendectomy, bariatric surgery, breast surgery, cholecystectomy, heart catheterization, hysterectomy and a number of orthopedic procedures. SOCIAL HISTORY: Positive for previous tobacco use. She drinks alcohol rarely. She denies illicit drug use. FAMILY HISTORY: Positive for father with CVA and pneumonia, mother with a history of no significant medical issues. REVIEW OF SYSTEMS: CONSTITUTIONAL: Negative. NEUROLOGIC: Negative. HEENT: Negative. CARDIOVASCULAR: Chest pressure. PULMONARY: Shortness of breath, particularly on exertion. She denies any cough, phlegm production, wheezing, chest tightness or hemoptysis. GI: Negative. : Negative. RHEUMATOLOGIC: Negative. IMMUNOLOGIC: Negative. ENDOCRINOLOGIC: Negative. DERMATOLOGIC: Negative. PHYSICAL EXAMINATION: VITAL SIGNS: Current vital signs are reviewed. Her temperature is 98, heart rate 93, respiratory rate 18, blood pressure 162/69, mean 100, room-air saturation 96%. GENERAL APPEARANCE: She appears in no acute distress. No conversational dyspnea, use of accessory muscles or audible wheezing. HEENT: Examination is grossly unremarkable. NECK: Supple. Full range of motion. No adenopathy. Neck veins are flat. CARDIOVASCULAR: Examination reveals regular rhythm and rate. S1, S2 normal. LUNGS: Lungs are clear. Breath sounds equal. No wheezes, rhonchi or crackles. ABDOMEN: Soft. EXTREMITIES: Intact. No edema. SKIN: Without rash. NEUROLOGIC: Neurologic examination is brief but nonfocal. LABS/IMAGING: Labs are reviewed. White count 2.6, hemoglobin 10.1, hematocrit 34.0, platelet count 147,000. Sodium and potassium normal. Chloride is 111, CO2 22. Anion gap is 6. BUN and creatinine were 13 and 0.76. Cholesterol was 242. Urine was essentially negative. Microbiology is negative. Chest x-ray showed no acute disease process. EKG showed normal sinus rhythm. Stress test is currently pending. Cardiac function by echo is normal. Current medications are reviewed. ASSESSMENT: 1. Shortness of breath, of unclear etiology. It may relate to underlying pulmonary and/or cardiac disease. Another explanation might be anxiety-related. The patient apparently has had a very detailed evaluation by my partner and is perplexed as to the patient's shortness of breath. 2. History of recurrent pneumonia, on her previous admission involving primarily the right lung, in particular the right upper lobe and right mid lung. 3. Status post previous bronchoscopy with BAL and sampling in January of 2020, all of which was negative. 4. Prior history of tobacco use. 5. History of deep venous thrombosis. 6. History of gastroesophageal reflux disease. 7. History of hypertension. 8. History of myocardial infarction. 9. Peripheral vascular occlusive disease. 10.Status post bariatric surgery for obesity. 11.Restless legs syndrome. 12.Iron deficiency anemia. 13.Prior history of methicillin-resistant Staphylococcus aeruginosa wound infection. 14.Multiple other medical problems and comorbidities. PLAN: The patient will follow up with Dr. Recinos post discharge. Will await the results of the stress test. The patient's medications are reviewed. I think we can deescalate some of these medications. It does not appear that her COPD is particularly active at this time. We did walk around the unit and she did not desaturate, although she did complain of being very subjectively short of breath. We did order a high-resolution CT scan to rule out interstitial lung disease. Additional recommendations and suggestions are forthcoming. MMODL / IJN: [id number] /
[2020-08-28 06:26] LABS: Glucose,Whole Blood 135 mg/dL (75-99)
[2020-08-28] MEDS: INSULIN ASPART (NovoLOG) 100 UNIT/ML VIAL SQ SCH (06:31)
[2020-08-28] MEDS: PANTOPRAZOLE 40 MG TABLET PO SCH (06:33)
[2020-08-28] MEDS: IPRATROPIUM-ALBUTEROL 3 ML NEB INHALATION SCH ×2 (07:07→11:15)
--- NOTE | 2020-08-28 07:07 | CT ---
EXAMINATION TYPE: CT chest wo con DATE OF EXAM: 08/27/2020 COMPARISON: CTA chest 19 days ago and older CTs. HISTORY: Difficulty breathing. CT DLP: 822.9 mGycm. Automated Exposure Control for Dose Reduction was Utilized. TECHNIQUE: CT scan of the thorax is performed without IV contrast. High resolution protocol with 1 m m cuts obtained in 10 mm intervals in both supine and prone technique FINDINGS: LUNGS: The lungs are grossly clear, there is no concerning parenchymal mass identified. No pleural ef fusion or pneumothorax is seen. No significant peripheral reticulation or fibrosis. No bronchiectasis . No honeycombing. MEDIASTINUM: Lack of IV contrast and technique are noted to limit evaluation for mediastinal and armaan cially hilar adenopathy. There are no definitive new greater than 1 cm hilar or mediastinal lymph nod es. No significant pericardial effusion is seen. Stable mild cardiomegaly with moderate left atrial dilatation. Coronary artery calculation redemonstrated OTHER: Surgical changes epigastric region from gastric bypass surgery are redemonstrated. Partial vis ualization of cholecystectomy clips. IMPRESSION: No significant pulmonary chronic parenchymal fibrotic changes.
[2020-08-28 08:25] VITALS: BP 151/70; PULSE 76; RESP 18; TEMP 98.6
[2020-08-28] MEDS: MULTIVITAMINS, THERA 1 EACH TAB PO SCH (08:30)
[2020-08-28] MEDS: HEPARIN SODIUM,PORCINE 5,000 UNIT/ML 1 ML VIAL SQ SCH (08:30)
[2020-08-28] MEDS: METOPROLOL SUCCINATE (ER) 25 MG TAB.ER.24H PO SCH (08:30)
[2020-08-28] MEDS: SERTRALINE 50 MG TAB PO SCH (08:30)
--- NOTE | 2020-08-28 08:32 | ECHOS ---
STRESS ECHOCARDIOGRAM LUMASON: Vial INDICATIONS: Chest pain, shortness of breath MEDICATIONS: BASELINE HEART RATE: 72 BASELINE BLOOD PRESSURE: 173/57 MAXIMUM HEART RATE: 131 MAXIMUM BLOOD PRESSURE: 216/72 85% MPHR: 131 100% MPHR: 154 METS: N/A MAXIMUM STAGE REACHED: 4 TOTAL EXERCISE TIME: 11:00 CLINICAL INFORMATION: INDICATION: Chest pain/shortness of breath. Baseline EKG shows sinus rhythm, normal axis, normal intervals. Patient was given intravenous dobutamine over a period of 11 minutes per protocol, achieving 85% of predicted maximal heart rate without chest pain or diagnostic ST-segment depression. Baseline echo shows normal left ventricular size, wall motion and systolic function. Post dobutamine infusion, there is normal hyperdynamic response of all segments of myocardium noted. CONCLUSION: 1. Negative stress test by EKG criteria. 2. Negative dobutamine echo. ALINE / DHEERAJ: [id number] /
--- NOTE | 2020-08-28 09:56 | P.PN ---
Subjective This is a pleasant 65 showed female past medical history significant for hypertension and COPD. She follows in the office with Dr. Buchanan. She is seen and examined sitting up in the chair in no acute distress. She has no symptoms of chest discomfort. She feels that her breathing is improving. Dobutamine stress echocardiogram performed yesterday was negative for stress- induced ischemia. Blood pressure 151/70 heart rate 76 afebrile maintaining oxygen saturation on room air. Echocardiogram obtained reveals preserved LV systolic function with ejection fraction greater than 55%, mild MR and mild TR noted. She underwent a CT of her chest this morning revealing no significant chronic parenchymal fibrotic changes. GENERAL: Well-appearing, well-nourished and in no acute distress. NECK: Supple without JVD or thyromegaly. LUNGS: Breath sounds clear to auscultation bilaterally. Respiration equal and unlabored. No wheezes, rales or rhonchi. HEART: Regular rate and rhythm without murmurs, rubs or gallops. S1 and S2 heard. EXTREMITIES: Normal range of motion, no edema. No clubbing or cyanosis. Peripheral pulses intact. ASSESSMENT Dyspnea x1 yr Chest pain, an acute coronary event has been ruled out and stress test is negati ve. Hypertension Dyslipidemia COPD Obesity, BMI 32 PLAN Stable for discharge from a cardiac perspective. Follow-up with Dr. Buchanan in the office in 2 weeks. Nurse Practitioner note has been reviewed, I agree with a documented findings and plan of care. Patient was seen and examined. Objective - Vital Signs Vital signs: Vital Signs Temp 98.6 F 08/28/20 08:24 Pulse 76 08/28/20 08:24 Resp 18 08/28/20 08:24 BP 151/70 08/28/20 08:24 Pulse Ox 99 08/28/20 08:24 Intake & Output 08/27/20 08/28/20 08/28/20 18:59 06:59 18:59 Weight 88.45 kg Other: Voiding Method Toilet Toilet # Voids 1 - Labs CBC & Chem 7: 08/27/20 07:48 08/27/20 07:48 Labs: Abnormal Lab Results - Last 24 Hours (Table) 08/27/20 08/27/20 08/27/20 Range/Units 12:07 17:13 20:03 POC Glucose (mg/dL) 222 H 158 H 234 H (75-99) mg/dL 08/28/20 Range/Units 06:24 POC Glucose (mg/dL) 135 H (75-99) mg/dL
[2020-08-28 10:12] LABS: Anisocytosis Slight; Basophils % (A) 0 %; Eosinophils % (A) 0 %; HCT 33.8 % (34.0-46.0); HGB 9.6 gm/dL (11.4-16.0); Hypochromasia Marked; Lymphocytes # (A) 0.8 k/uL (1.0-4.8); Lymphocytes % (A) 9 %; MCH 22.2 pg (25.0-35.0); MCHC 28.5 g/dL (31.0-37.0); Mean Platelet Volume 8.3; Microcytosis Slight; Monocytes # (A) 0.3 k/uL (0-1.0); Monocytes % (A) 3 %; Neutrophils # (A) 7.4 k/uL (1.3-7.7); Neutrophils % (A) 87 %; Platelet Count 159 k/uL (150-450); RBC 4.33 m/uL (3.80-5.40); RDW 16.6 % (11.5-15.5); WBC 8.5 k/uL (3.8-10.6)
[2020-08-28 10:35] LABS: Calcium 8.7 mg/dL (8.4-10.2); Potassium 4.1 mmol/L (3.5-5.1)
--- NOTE | 2020-08-29 10:34 | DS ---
DISCHARGE SUMMARY DATE OF SERVICE: 08/28/2020 FINAL DIAGNOSES: 1. Shortness of breath. Evaluation for possible COPD acute exacerbation. 2. Coronary artery disease ruled out. 3. Hyponatremia. 4. Anemia, microcytic possibly nutritional. 5. History of nicotine dependence. 6. History of chronic obstructive pulmonary disease. 7. History of deep vein thrombosis. 8. History of gastroesophageal reflux disease. 9. Hypertension. 10.History of recent abnormal CAT scan. 11.History of myocardial infarction. 12.History of pneumonia. 13.Hyperlipidemia. 14.History of gastric bypass surgery. 15.History of peripheral vascular disease, angioplasty. 16.Restless legs syndrome. 17.History of anemia. 18.History of MRSA. 19.History of bariatric surgery. 20.History of cholecystectomy. 21.History of anxiety, panic disorder. 22.Remote history of nicotine dependence. 23.Obesity with body mass index of 32.4. 24.FULL CODE. DISCHARGE DISPOSITION: The patient will be discharged in a stable condition with guarded prognosis. HISTORY OF PRESENT ILLNESS: This is a 65-year-old woman with a past medical history of multiple medical problems being followed by Dr. Roblero in the outpatient setting with shortness of breath, treated with COPD, improved significantly, Pulmonary watched the patient the patient closely and CT scan of the chest was done. Cardiology also saw the patient. CT chest showed no significant pulmonary abnormality. On exam, vitals are stable/ CARDIOVASCULAR: S1, S2. ABDOMEN: Soft. NERVOUS SYSTEM: No focal deficit. DISCHARGE ADVICE: 1. Discharge diet is cardiac diet. 2. Follow up with Dr. Roblero in 2-3 days. 3. Follow up with Dr. Recinos as recommended. 4. Follow up with Cardiology as recommended. DISCHARGE MEDICATIONS: 1. Abilify 5 mg p.o. daily. 2. Cholestyramine 4 mg p.o. daily. 3. Estrace 0.5 mg daily. 4. Multivitamin 1 p.o. daily. 5. Requip 1 mg q.h.s. 6. Toprol-XL 25 mg daily. 7. Fluticasone weekly. 8. Trilogy Ellipta 1 daily. 9. Ventolin 1-2 puffs p.r.n. 10.Vitamin B12 one thousand mcg p.o. Thursday. 11.Xanax 1 mg b.i.d. p.r.n. 12.BuSpar 15 mg p.o. b.i.d. 13.Ceftin 500 mg p.o. b.i.d. for 3 days. 14.DuoNeb q.i.d. and p.r.n. 15.Prednisone 40 mg daily for 3 days, 30 for 3 days, 20 for 3 days, 10 for 3 days. 16.Protonix 40 mg p.o. b.i.d. 17.Zoloft 150 mg p.o. daily. Once again, the patient will be discharged in stable condition with guarded prognosis. MMODL / IJN: [id number] /
== END 2020-08-28 11:27 | disposition home or self-care (01) ==
LOC: EC 14:06 → 3NCARDOBS 16:59
PROVIDERS: ADMIT Internal Medicine; ATTEND Internal Medicine
DX: R06.09 Other forms of dyspnea (principal); Z87.01 Personal history of pneumonia (recurrent); I25.2 Old myocardial infarction; J44.9 Chronic obstructive pulmonary disease, unspecified; Z86.718 Personal history of other venous thrombosis and embolism; Z20.828 Contact with and (suspected) exposure to other viral communicable diseases; E78.5 Hyperlipidemia, unspecified; K21.9 Gastro-esophageal reflux disease without esophagitis; I10 Essential (primary) hypertension; E87.1 Hypo-osmolality and hyponatremia; E66.9 Obesity, unspecified; Z68.32 Body mass index [BMI] 32.0-32.9, adult; I73.9 Peripheral vascular disease, unspecified; Z87.891 Personal history of nicotine dependence; G25.81 Restless legs syndrome; F41.9 Anxiety disorder, unspecified; R61 Generalized hyperhidrosis; F41.0 Panic disorder [episodic paroxysmal anxiety]; D50.9 Iron deficiency anemia, unspecified; Z86.14 Personal history of Methicillin resistant Staphylococcus aureus infection; Z98.890 Other specified postprocedural states; Z98.84 Bariatric surgery status; Z90.49 Acquired absence of other specified parts of digestive tract; Z90.710 Acquired absence of both cervix and uterus; Z95.828 Presence of other vascular implants and grafts; Z82.3 Family history of stroke; Z82.5 Family history of asthma and other chronic lower respiratory diseases; Z79.890 Hormone replacement therapy; Z79.51 Long term (current) use of inhaled steroids; Z79.899 Other long term (current) drug therapy
CPT/HCPCS: 93005 ×2; 96365; 96366; 96367; 96372 ×3; 96375; 96376; 99285; 36415; 94640 ×5; 94760; 93306; 93351; 85379; 83880; 80061; 80053; 80048 ×2; 85652; 83605; 84484; 85025 ×3; 85610; 85730; 86140; 81001; 71046; 71250; G0378 ×3; U0003; J1250; J1644 ×3; J2930 ×2; J0456; J0696

== ENCOUNTER → 2021-06-13 | Outpatient (CLI) | payer MEDICARE | END | disposition home or self-care (01) | LOC: RADMAMWWP 09:09 | PROVIDERS: ATTEND Internal Medicine | DX: Z12.31 Encounter for screening mammogram for malignant neoplasm of breast (principal) | CPT/HCPCS: 77067 ==

== ENCOUNTER → 2021-06-14 | Outpatient (CLI) | payer MEDICARE ==
--- NOTE | 2021-06-14 08:39 | CT ---
EXAMINATION TYPE: CT shoulder RT wo con DATE OF EXAM: 06/14/2021 COMPARISON: None HISTORY: Rt Shoulder pain CT DLP: 361.0 mGycm Automated exposure control for dose reduction was used. FINDINGS: The humeral head is elevated relative to the glenoid. No significant spurs extending from the AC join t. Could not exclude AC joint separation. There is a bony density seen lateral and posterior to the h umeral head which could be on the basis of previous trauma. No acute fracture. Visualized lung valadez clear. Soft tissues demonstrate no significant abnormality. Rib cage is intact. IMPRESSION: 1. There is a elevation of the humeral head relative to the glenoid which can be associated with rota tor cuff tear. Additionally there is a bony density along the superior posterior lateral margin of th e humeral head which could be on the basis of remote trauma or a heavily calcified calcific tendinosi s. Recommend follow-up MRI.
== END | disposition home or self-care (01) ==
LOC: RADCTMAIN 06:48
PROVIDERS: ATTEND Orthopaedic Surgery
DX: M75.101 Unspecified rotator cuff tear or rupture of right shoulder, not specified as traumatic (principal)

== ENCOUNTER 2021-07-08 11:55 | Emergency (ER) | payer MEDICARE ==
[2021-07-08 12:13] VITALS: BP 147/71; PULSE 59; RESP 20; TEMP 98.1
--- NOTE | 2021-07-08 13:36 | XR ---
EXAMINATION TYPE: XR KUB DATE OF EXAM: 07/08/2021 COMPARISON: NONE HISTORY: Constipation TECHNIQUE: One view abdominal series FINDINGS: The osseous structures are intact. The bowel gas pattern is nonspecific. Lung bases are clear. Unde rlying COPD suspected. Surgical clips in the epigastrium. Hypertrophic and degenerative changes spine . Air-fluid levels are seen. IMPRESSION: 1. Nonspecific abdomen. Multiple air-fluid levels correlate for an ileus or enteritis.
--- NOTE | 2021-07-08 13:48 | ED ---
General Adult HPI - General Chief complaint: Extremity Injury, Lower Stated complaint: Post op/leg swelling Time Seen by Provider: 07/08/21 12:10 Source: patient, RN notes reviewed, old records reviewed Mode of arrival: ambulatory Limitations: physical limitation - History of Present Illness Initial comments: This is a 66-year-old female presents emergency Department complaining that since she's had surgery on her clavicle she has been getting more more swelling in her legs bilaterally particularly in her left leg. Patient states she also has been constipated and hasn't had a bowel movement in at least 10-12 days. Patient denies any abdominal pain however she does feel distended. Patient denies any dysuria hematuria urinary frequency. Patient denies any recent fever chills or cough. Patient states he is occasionally some pain on the lateral aspect of her left leg but there is no calf tenderness per se. Patient denies difficulty breathing shortness of breath. Patient denies any chest pain. - Related Data Home Medications Medication Instructions Recorded Confirmed Metoprolol Succinate (ER) [Toprol 25 mg PO DAILY 09/25/17 07/08/21 XL] estradioL [Estrace] 0.5 mg PO DAILY 09/25/17 07/08/21 rOPINIRole HCL [Requip] 1 mg PO HS 02/06/20 07/08/21 ALPRAZolam [Xanax] 1 mg PO DAILY 08/07/20 07/08/21 ARIPiprazole 5 mg PO DAILY 08/07/20 07/08/21 Cyanocobalamin [Vitamin B-12 1,000 mcg SQ Q14D 08/26/20 07/08/21 Injection] Aspirin EC [Ecotrin] 325 mg PO DAILY 07/08/21 07/08/21 Temazepam 30 mg PO HS 07/08/21 07/08/21 Previous Rx's Medication Instructions Recorded Sertraline [Zoloft] 150 mg PO DAILY #30 tab 02/13/20 Furosemide [Lasix] 10 mg PO BID #10 dose 07/08/21 Allergies Allergy/AdvReac Type Severity Reaction Status Date / Time No Known Allergies Allergy Verified 07/08/21 13:51 Review of Systems ROS Statement: Those systems with pertinent positive or pertinent negative responses have been documented in the HPI. ROS Other: All systems not noted in ROS Statement are negative. Past Medical History Past Medical History: COPD, Deep Vein Thrombosis (DVT), GERD/Reflux, Hypertension, Myocardial Infarction ([place]), Pneumonia, Vascular Disorder Additional Past Medical History / Comment(s): Previous history of gastric bypass surgery for obesity, remote history of a right lower extremity DVT 1996, peripheral vascular disease with previous angioplasty, restless leg syndrome, iron deficiency, COPD, Last Myocardial Infarction Date:: 10/2014 History of Any Multi-Drug Resistant Organisms: MRSA Date of last positivie culture/infection: 2000 MDRO Source:: abdominal wound Past Surgical History: Appendectomy, Bariatric Surgery, Breast Surgery, Cholecystectomy, Heart Catheterization, Hysterectomy, Orthopedic Surgery Additional Past Surgical History / Comment(s): Gastric bypass and subsequent multiple surgeries d/t incision did not heal properly and bowel was nicked, exploratory laparotomies, bilateral fem/pop bypass/stents, recent L wrist fracture with sx/hardware, bilateral feet bunionectomies, L rotator cuff repair, L knee arthroscopy, L breast benign bx, EGD, colonoscopies/benign polypectomy, right collar bone, Past Anesthesia/Blood Transfusion Reactions: No Reported Reaction Past Psychological History: Anxiety, Panic Disorder Smoking Status: Former smoker Past Alcohol Use History: Rare Past Drug Use History: None Reported - Past Family History Father Family Medical History: CVA/TIA, Pneumonia Additional Family Medical History / Comment(s): STROKE AT AGE 50. Father of pne at the age of 63 yrs. Mother Family Medical History: No Reported History Additional Family Medical History / Comment(s): Mother is healthy and 83 yrs old. General Exam - General Exam Comments Initial Comments: GENERAL: Patient is well-developed and well-nourished. Patient is nontoxic and well-h ydrated and is in mild distress. ENT: Neck is soft and supple. No significant lymphadenopathy is noted. Oropharynx is clear. Moist mucous membranes. Neck has full range of motion without eliciting any pain. EYES: The sclera were anicteric and conjunctiva were pink and moist. Extraocular movements were intact and pupils were equal round and reactive to light. Eyelids were unremarkable. PULMONARY: Unlabored respirations. Good breath sounds bilaterally. No audible rales rhonchi or wheezing was noted. CARDIOVASCULAR: There is a regular rate and rhythm without any murmurs gallops or rubs. ABDOMEN: Soft and nontender with normal bowel sounds. No palpable organomegaly was noted. There is no palpable pulsatile mass. SKIN: Skin is clear with no lesions or rashes and otherwise unremarkable. NEUROLOGIC: Patient is alert and oriented x3. Cranial nerves II through XII are grossly intact. Motor and sensory are also intact. Normal speech, volume and content. Symmetrical smile. MUSCULOSKELETAL: Normal extremities with adequate strength and full range of motion. 2+ edema on the left leg. 1+ edema right leg. No calf tenderness bilaterally LYMPHATICS: No significant lymphadenopathy is noted PSYCHIATRIC: Normal psychiatric evaluation. Limitations: physical limitation Course Vital Signs 07/08/21 12:08 Temperature 98.1 F Pulse Rate 59 L Respiratory 20 Rate Blood Pressure 147/71 O2 Sat by Pulse 99 Oximetry Medical Decision Making - Medical Decision Making Ultrasound of bilateral leg showed no DVT. Enema produced quite of bit of stool patient felt much better. Disposition Clinical Impression: Pedal edema, Constipation Disposition: HOME SELF-CARE Instructions (If sedation given, give patient instructions): Edema (ED), Con stipation (ED), High Fiber Diet (ED) Prescriptions: Furosemide [Lasix] 10 mg PO BID #10 dose Is patient prescribed a controlled substance at d/c from ED?: No Referrals: Parmjit Roblero MD [Primary Care Provider] - 1-2 days Time of Disposition: 16:28
--- NOTE | 2021-07-08 14:39 | US ---
EXAMINATION TYPE: US venous doppler duplex LE DATE OF EXAM: 07/08/2021 2:28 PM COMPARISON: NONE CLINICAL HISTORY: Postsurgical leg swelling. Patient had right shoulder surgery 2 weeks ago. C/O left ankle pain with swelling since hospitalization for shoulder. SIDE PERFORMED: Bilateral TECHNIQUE: The lower extremity deep venous system is examined utilizing real time linear array sonog reji with graded compression, doppler sonography and color-flow sonography. VESSELS IMAGED: Common Femoral Vein Deep Femoral Vein Greater Saphenous Vein * Femoral Vein Popliteal Vein Small Saphenous Vein * Proximal Calf Veins (* superficial vessels) Right Leg: Negative for DVT Left Leg: Negative for DVT. Ankle soft tissue edema seen left lower leg. IMPRESSION: Grayscale, color doppler, spectral doppler imaging performed of the deep veins of the lo wer extremities. There is normal flow, compressibility, vascular waveforms.
== END 2021-07-08 16:36 | disposition home or self-care (01) ==
LOC: EC 11:55
DX: R60.0 Localized edema (principal); K59.00 Constipation, unspecified; E66.9 Obesity, unspecified; I10 Essential (primary) hypertension; I25.2 Old myocardial infarction; J44.9 Chronic obstructive pulmonary disease, unspecified; K21.9 Gastro-esophageal reflux disease without esophagitis; Z79.899 Other long term (current) drug therapy; Z86.718 Personal history of other venous thrombosis and embolism; Z87.891 Personal history of nicotine dependence; Z68.33 Body mass index [BMI] 33.0-33.9, adult
CPT/HCPCS: 74018; 93970; 99284

== ENCOUNTER → 2021-10-16 | Outpatient (CLI) | payer MEDICARE ==
--- NOTE | 2021-10-16 18:00 | BD ---
EXAMINATION TYPE: Axial Bone Density DATE OF EXAM: 10/16/2021 COMPARISON: 09/06/2004 CLINICAL HISTORY: Postmenopausal screening Height: 64.2 IN Weight: 201 LBS FRAX RISK QUESTIONS: History of Fracture in Adulthood: LT WRIST FX AGE 64; RT SHOULDER AGE 65; RT CLAVICLE FX AGE 65 Secondary Osteoporosis: 3. Menopause before 45: TOTAL HYST AGE 36 RISK FACTORS HISTORY OF: History of Wrist Fracture: LT WRIST AGE 64 Surgery to Wrist (left): AGE 64 Active: YES Diet low in dairy products/other sources of calcium: YES Postmenopausal woman: TOTAL HYST AGE 36 Take estrogen and/or progesterone medications: YES How long: SINCE AGE 36 Frequent falls: YES PT STATES CLUMSY MEDICATIONS: Additional Medications: TEMAZEPAM, ROPINIROLE, FUROSEMIDE, ALPRAZOLAM, ARIPIPRAZOLM,ESTRADIOL, METOPR OLOL, SERTRALINE EXAM MEASUREMENTS: Bone mineral densitometry was performed using the byyd System. Bone mineral density as measured about the Lumbar spine is: ----- L1-L4(G/cm2): 1.136 T Score Values are as follows: ----- L2: -1.1 ----- L3: -0.5 ----- L4: 0.5 ----- L1-L4: -0.4 Bone mineral density has: Decreased -65% since study of: 09/06/2004 Bone mineral density about the R hip (g/cm2): 0.800 Bone mineral density about the L hip (g/cm2): 0.831 T Score values are as follows: -----R Neck: -1.7 -----L Neck: -1.5 -----R Total: -1.2 -----L Total: -0.7 Bone mineral density has: Decreased -8.9% since study of: 09/06/2004 IMPRESSION: Osteopenia (T Score between -2.5 and -1). There is slightly increased risk of fracture and the patient may be considered for treatment. Re-Screen 2-5 years. NOTE: T-SCORE=SD OF THE YOUNG ADULT MEAN.
== END | disposition home or self-care (01) ==
LOC: RADBDWWP 08:35
PROVIDERS: ATTEND Internal Medicine
DX: M85.80 Other specified disorders of bone density and structure, unspecified site (principal); Z78.0 Asymptomatic menopausal state
CPT/HCPCS: 77080

== ENCOUNTER → 2022-07-25 | Outpatient (CLI) | payer MEDICARE ==
--- NOTE | 2022-07-28 07:48 | MM ---
Reason for Exam: Screening (asymptomatic). Last mammogram was performed 1 year(s) and 1 month(s) ago. Patient History: Menarche at age 12. Patient has no children. Left ovary removed at age 35. Right ovary removed at age 35. Hysterectomy at age 35. Postmenopausal. Currently using Estrogen, for 15 years, 2 months. Patient used Hormonal Contraceptives for 8 years. Risk Values: Karolina 5 year model risk: 1.9%. NCI Lifetime model risk: 6.2%. Prior Study Comparison: 12/25/2016 Screening Mammogram, [facility]. 06/11/2020 Bilateral Screening Mammogram, [facility]. 06/13/2021 Bilateral Screening Mammogram, [facility]. Tissue Density: The breast tissue is heterogeneously dense. This may lower the sensitivity of mammography. Findings: Analyzed By CAD. There is no suspicious group of microcalcifications or new suspicious mass in either breast. Overall Assessment: Negative, BI-RAD 1 Management: Screening Mammogram of both breasts in 1 year. A clinical breast exam by your physician is recommended on an annual basis and results should be correlated with mammographic findings. Electronically signed and approved by: Reji Prasad DO
== END | disposition home or self-care (01) ==
LOC: RADMAMWWP 09:40
PROVIDERS: ATTEND Internal Medicine
DX: Z12.31 Encounter for screening mammogram for malignant neoplasm of breast (principal)
CPT/HCPCS: 77063; 77067

== ENCOUNTER → 2022-07-28 | Outpatient (CLI) | payer MEDICARE ==
--- NOTE | 2022-07-28 14:24 | US ---
EXAMINATION TYPE: US kidneys/renal and bladder DATE OF EXAM: 07/28/2022 COMPARISON: US & CT 2019 CLINICAL HISTORY: N28.9 RENAL INSUFFICIENCY. EXAM MEASUREMENTS: Right Kidney: 9.3 x 5.0 x 5.2 cm Left Kidney: 9.6 x 4.5 x 4.3 cm Right Kidney: No hydronephrosis or masses seen Left Kidney: 0.6cm echogenic focus superior pole no hydronephrosis. Bladder: wnl Bilateral Jets seen: no There is no evidence for hydronephrosis at this point in time. No nephrolithiasis is seen. No viviana s are identified. The urinary bladder is anechoic. Bilateral ureteral jets are seen. IMPRESSION: 1. No evidence of obstructive uropathy. 2. Nonobstructive left superior renal calculus
== END | disposition home or self-care (01) ==
LOC: RADUSWWP 12:51
PROVIDERS: ATTEND Internal Medicine
DX: N28.9 Disorder of kidney and ureter, unspecified (principal)
CPT/HCPCS: 76770

== ENCOUNTER → 2022-07-29 | Outpatient (CLI) | payer MEDICARE ==
[2022-07-29 15:20] LABS: ALT 38 U/L (8-44); AST 28 U/L (13-35); African American GFR (CKD) 59.7 (60.0-200.0); Albumin 4.6 g/dL (3.8-4.9); Alkaline Phosphatase 145 U/L (41-126); BUN/Creat Ratio 9.36 Ratio (12.00-20.00); Blood Urea Nitrogen 10.3 mg/dL (9.0-27.0); C Reactive Protein <0.30 mg/dL (0.00-0.80); Calcium 9.2 mg/dL (8.7-10.3); Carbon Dioxide 26.6 mmol/L (20.0-27.5); Chloride 104 mmol/L (96-109); Glucose 111 mg/dL (70-110); Non-African American GFR(CKD) 51.5 (60.0-200.0); Potassium 4.1 mmol/L (3.5-5.5); Sodium 140 mmol/L (135-145); Total Protein 6.6 g/dL (6.2-8.2)
== END | disposition home or self-care (01) ==
LOC: LABWHC1 10:33
PROVIDERS: ATTEND Nurse Practitioner Family
DX: K58.0 Irritable bowel syndrome with diarrhea (principal)
CPT/HCPCS: 36415; 80053; 85652; 86140

== ENCOUNTER 2022-08-03 16:12 | Emergency (ER) | payer MEDICARE ==
[2022-08-03 17:09] LABS: Basophils # (A) 0.1 k/uL (0-0.2); Basophils % (A) 2 %; Eosinophils # (A) 0.1 k/uL (0-0.7); Eosinophils % (A) 2 %; HCT 40.6 % (34.0-46.0); HGB 13.4 gm/dL (11.4-16.0); Lymphocytes # (A) 1.1 k/uL (1.0-4.8); Lymphocytes % (A) 24 %; MCH 30.8 pg (25.0-35.0); MCHC 33.1 g/dL (31.0-37.0); MCV 92.9 fL (80.0-100.0); Mean Platelet Volume 8.2; Monocytes # (A) 0.3 k/uL (0-1.0); Monocytes % (A) 6 %; Neutrophils # (A) 2.9 k/uL (1.3-7.7); Neutrophils % (A) 65 %; Platelet Count 113 k/uL (150-450); RBC 4.37 m/uL (3.80-5.40); RDW 12.6 % (11.5-15.5); WBC 4.5 k/uL (3.8-10.6)
[2022-08-03 17:12] LABS: Albumin 4.2 g/dL (3.5-5.0); Calcium 8.3 mg/dL (8.4-10.2); Magnesium 1.9 mg/dL (1.6-2.3); Potassium 3.4 mmol/L (3.5-5.1); Total Bilirubin 0.5 mg/dL (0.2-1.3); Total Protein 6.6 g/dL (6.3-8.2)
[2022-08-03 17:13] LABS: INR 0.9 (<1.2); Partial Thromboplastin Time 22.6 sec (22.0-30.0); Prothrombin Time 10.2 sec (9.0-12.0)
--- NOTE | 2022-08-03 17:40 | XR ---
EXAMINATION TYPE: XR chest 2V DATE OF EXAM: 08/03/2022 COMPARISON: 08/26/2020 HISTORY: Chest pain TECHNIQUE: 2 view FINDINGS: Heart and mediastinum are normal. Lungs are clear. Diaphragm is normal. Bony thorax is inta ct. IMPRESSION: Normal chest. No change
[2022-08-03] MEDS ORDERED: FAMOTIDINE 20 MG/2 ML VIAL IV STA (20:53)
[2022-08-03 21:10] VITALS: RESP 18
--- NOTE | 2022-08-03 21:23 | ED ---
General Adult HPI - General Chief complaint: Chest Pain Stated complaint: Chest pain Time Seen by Provider: 08/03/22 20:41 Source: patient Mode of arrival: wheelchair Limitations: no limitations - History of Present Illness Initial comments: This is a well-appearing 67-year-old female that presents to the emergency room with complaints of midsternal chest pain that came on tonight while eating pork chops. Patient states that pain has been constant since feeling like someone is sitting on her chest. She denies any fevers, no nausea vomiting diarrhea. She does have a history of COPD, DVT, hypertension and SC. Surgical history of appendectomy She is a nonsmoker. - Related Data Home Medications Medication Instructions Recorded Confirmed Metoprolol Succinate (ER) [Toprol 25 mg PO DAILY 09/25/17 07/26/21 XL] estradioL [Estrace] 0.5 mg PO DAILY 09/25/17 07/26/21 rOPINIRole HCL [Requip] 1 mg PO HS 02/06/20 07/26/21 ALPRAZolam [Xanax] 1 mg PO DAILY 08/07/20 07/26/21 ARIPiprazole 5 mg PO DAILY 08/07/20 07/26/21 Cyanocobalamin [Vitamin B-12 1,000 mcg SQ Q14D 08/26/20 07/26/21 Injection] Aspirin EC [Ecotrin] 325 mg PO DAILY 07/08/21 07/26/21 Temazepam 30 mg PO HS 07/08/21 07/26/21 Previous Rx's Medication Instructions Recorded Sertraline [Zoloft] 150 mg PO DAILY #30 tab 02/13/20 Furosemide [Lasix] 10 mg PO BID #10 dose 07/08/21 Allergies Allergy/AdvReac Type Severity Reaction Status Date / Time No Known Allergies Allergy Verified 08/03/22 16:23 Review of Systems ROS Statement: Those systems with pertinent positive or pertinent negative responses have been documented in the HPI. ROS Other: All systems not noted in ROS Statement are negative. Past Medical History Past Medical History: COPD, Deep Vein Thrombosis (DVT), GERD/Reflux, Hypertension, Myocardial Infarction (SC), Pneumonia, Vascular Disorder Additional Past Medical History / Comment(s): Previous history of gastric bypass surgery for obesity, remote history of a right lower extremity DVT 1996, peripheral vascular disease with previous angioplasty, restless leg syndrome, iron deficiency, COPD, Last Myocardial Infarction Date:: 10/2014 History of Any Multi-Drug Resistant Organisms: MRSA Date of last positivie culture/infection: 2000 MDRO Source:: abdominal wound Past Surgical History: Appendectomy, Bariatric Surgery, Breast Surgery, Cholecystectomy, Heart Catheterization, Hysterectomy, Orthopedic Surgery Additional Past Surgical History / Comment(s): Gastric bypass and subsequent multiple surgeries d/t incision did not heal properly and bowel was nicked, exploratory laparotomies, bilateral fem/pop bypass/stents, recent L wrist fracture with sx/hardware, bilateral feet bunionectomies, L rotator cuff repair, L knee arthroscopy, L breast benign bx, EGD, colonoscopies/benign polypectomy, right collar bone, Past Anesthesia/Blood Transfusion Reactions: No Reported Reaction Past Psychological History: Anxiety, Panic Disorder Smoking Status: Former smoker Past Alcohol Use History: Rare Past Drug Use History: None Reported - Past Family History Father Family Medical History: CVA/TIA, Pneumonia Additional Family Medical History / Comment(s): STROKE AT AGE 50. Father of pne at the age of 63 yrs. Mother Family Medical History: No Reported History Additional Family Medical History / Comment(s): Mother is healthy and 83 yrs old. General Exam Limitations: no limitations Course Vital Signs 08/03/22 08/03/22 16:21 21:04 Temperature 97.6 F Pulse Rate 45 L 42 L Respiratory 16 18 Rate Blood Pressure 147/65 187/71 O2 Sat by Pulse 98 99 Oximetry EKG Findings - EKG Results: EKG shows: bradycardia (Ventricular rate 44, IN interval 0.157, QRS 0.88, QTc 0.462) Medical Decision Making - Medical Decision Making Patient presents with epigastric type chest pressure after eating a pork chop tonight. She states that she has had this pain in the past but never spoke to her doctor about it. She did recently see Dr. Larson last Nikhil was diagnosed with irritable bowel syndrome. She denies any dizziness or shortness of breath. Labs are unremarkable. EKG shows sinus rhythm. Troponin is negative. No evidence of leukocytosis. Lung sounds are clear vital signs are stable. Patient has been afebrile. She denies any hematochezia or hematemesis. She has had history of bariatric surgery over 20 years ago. She had recent echocardiogram that was negative in July 2020. Patient will be discharged home to follow-up with her primary care doctor and Dr. Larson for continuation of care. She is agreeable to this plan of care. Case discussed with Dr. Dunn. - Lab Data Result diagrams: 08/03/22 16:43 08/03/22 16:43 Lab Results 08/03/22 08/03/22 08/03/22 Range/Units 16:43 16:43 16:43 WBC 4.5 (3.8-10.6) k/uL RBC 4.37 (3.80-5.40) m/uL Hgb 13.4 (11.4-16.0) gm/dL Hct 40.6 (34.0-46.0) % MCV 92.9 (80.0-100.0) fL MCH 30.8 (25.0-35.0) pg MCHC 33.1 (31.0-37.0) g/dL RDW 12.6 (11.5-15.5) % Plt Count 113 L (150-450) k/uL MPV 8.2 Neutrophils % 65 % Lymphocytes % 24 % Monocytes % 6 % Eosinophils % 2 % Basophils % 2 % Neutrophils # 2.9 (1.3-7.7) k/uL Lymphocytes # 1.1 (1.0-4.8) k/uL Monocytes # 0.3 (0-1.0) k/uL Eosinophils # 0.1 (0-0.7) k/uL Basophils # 0.1 (0-0.2) k/uL PT 10.2 (9.0-12.0) sec INR 0.9 (<1.2) APTT 22.6 (22.0-30.0) sec Sodium 138 (137-145) mmol/L Potassium 3.4 L (3.5-5.1) mmol/L Chloride 103 (98-107) mmol/L Carbon Dioxide 26 (22-30) mmol/L Anion Gap 9 mmol/L BUN 9 (7-17) mg/dL Creatinine 1.04 (0.52-1.04) mg/dL Est GFR (CKD-EPI)AfAm 64 (>60 ml/min/1.73 sqM) Est GFR (CKD-EPI)NonAf 56 (>60 ml/min/1.73 sqM) Glucose 75 (74-99) mg/dL Calcium 8.3 L (8.4-10.2) mg/dL Magnesium 1.9 (1.6-2.3) mg/dL Total Bilirubin 0.5 (0.2-1.3) mg/dL AST 43 H (14-36) U/L ALT 51 H (4-34) U/L Alkaline Phosphatase 128 H (38-126) U/L Troponin I (0.000-0.034) ng/mL Total Protein 6.6 (6.3-8.2) g/dL Albumin 4.2 (3.5-5.0) g/dL 08/03/22 08/03/22 Range/Units 16:43 20:50 WBC (3.8-10.6) k/uL RBC (3.80-5.40) m/uL Hgb (11.4-16.0) gm/dL Hct (34.0-46.0) % MCV (80.0-100.0) fL MCH (25.0-35.0) pg MCHC (31.0-37.0) g/dL RDW (11.5-15.5) % Plt Count (150-450) k/uL MPV Neutrophils % % Lymphocytes % % Monocytes % % Eosinophils % % Basophils % % Neutrophils # (1.3-7.7) k/uL Lymphocytes # (1.0-4.8) k/uL Monocytes # (0-1.0) k/uL Eosinophils # (0-0.7) k/uL Basophils # (0-0.2) k/uL PT (9.0-12.0) sec INR (<1.2) APTT (22.0-30.0) sec Sodium (137-145) mmol/L Potassium (3.5-5.1) mmol/L Chloride (98-107) mmol/L Carbon Dioxide (22-30) mmol/L Anion Gap mmol/L BUN (7-17) mg/dL Creatinine (0.52-1.04) mg/dL Est GFR (CKD-EPI)AfAm (>60 ml/min/1.73 sqM) Est GFR (CKD-EPI)NonAf (>60 ml/min/1.73 sqM) Glucose (74-99) mg/dL Calcium (8.4-10.2) mg/dL Magnesium (1.6-2.3) mg/dL Total Bilirubin (0.2-1.3) mg/dL AST (14-36) U/L ALT (4-34) U/L Alkaline Phosphatase (38-126) U/L Troponin I <0.012 <0.012 (0.000-0.034) ng/mL Total Protein (6.3-8.2) g/dL Albumin (3.5-5.0) g/dL Disposition Clinical Impression: Atypical chest pain, Epigastric pain Disposition: HOME SELF-CARE Condition: Good Instructions (If sedation given, give patient instructions): Epigastric Pain (ED) Additional Instructions: Follow-up with your primary care doctor and your interior paneler Dr. Gil for continuation of care. Return to the emergency room with any new or concerning symptoms. Is patient prescribed a controlled substance at d/c from ED?: No Referrals: Parmjit Roblero MD [Primary Care Provider] - 1-2 days Juany Gil MD [STAFF PHYSICIAN] - 1-2 days Time of Disposition: 22:53
[2022-08-03] MEDS ORDERED: MAG HYDROX/AL HYDROX/SIMETH 30 ML, HYOSCYAMINE ELIXIR 10 ML PO STA ×2 (21:41)
[2022-08-03 23:17] VITALS: BP 178/80; PULSE 44; TEMP 98
== END 2022-08-03 23:10 | disposition home or self-care (01) ==
LOC: EC 16:12
DX: R07.89 Other chest pain (principal); R10.13 Epigastric pain; J44.9 Chronic obstructive pulmonary disease, unspecified; I25.2 Old myocardial infarction; I10 Essential (primary) hypertension; Z87.891 Personal history of nicotine dependence; Z90.49 Acquired absence of other specified parts of digestive tract; Z79.899 Other long term (current) drug therapy; Z79.82 Long term (current) use of aspirin
CPT/HCPCS: 36415; 71046; 80053; 83735; 84484; 85025; 85610; 85730; 93005; 96374; 99285

== ENCOUNTER 2022-08-10 16:18 | Emergency (ER) | payer MEDICARE ==
[2022-08-10 17:03] VITALS: BP 144/61; PULSE 52; RESP 18; TEMP 98
[2022-08-10 17:29] LABS: Basophils % (A) 0 %; Eosinophils # (A) 0.1 k/uL (0-0.7); Eosinophils % (A) 2 %; HCT 39.3 % (34.0-46.0); HGB 13.3 gm/dL (11.4-16.0); Lymphocytes # (A) 0.7 k/uL (1.0-4.8); Lymphocytes % (A) 21 %; MCH 31.6 pg (25.0-35.0); MCV 93.1 fL (80.0-100.0); Mean Platelet Volume 8.2; Monocytes # (A) 0.1 k/uL (0-1.0); Monocytes % (A) 4 %; Neutrophils # (A) 2.3 k/uL (1.3-7.7); Neutrophils % (A) 71 %; Platelet Count 112 k/uL (150-450); RBC 4.22 m/uL (3.80-5.40); RDW 12.8 % (11.5-15.5); WBC 3.2 k/uL (3.8-10.6)
[2022-08-10 17:41] LABS: INR 0.9 (<1.2); Partial Thromboplastin Time 21.9 sec (22.0-30.0); Prothrombin Time 10.1 sec (9.0-12.0)
[2022-08-10 17:45] LABS: Albumin 4.2 g/dL (3.5-5.0); Calcium 8.5 mg/dL (8.4-10.2); Potassium 3.7 mmol/L (3.5-5.1); Total Bilirubin 0.5 mg/dL (0.2-1.3); Total Protein 6.3 g/dL (6.3-8.2)
--- NOTE | 2022-08-10 18:11 | XR ---
EXAMINATION TYPE: XR chest 2V DATE OF EXAM: 08/10/2022 COMPARISON: 08/03/2022 HISTORY: Chest pain TECHNIQUE: 2 views FINDINGS: There is no heart failure nor confluent pneumonic infiltrate. Costophrenic angles are clear . There are no hilar masses. There is a plate and screws fixing the acromion. IMPRESSION: No active cardiopulmonary disease. No change.
--- NOTE | 2022-08-10 18:31 | ED ---
General Adult HPI - General Chief complaint: Chest Pain Stated complaint: chest pain Time Seen by Provider: 08/10/22 18:26 Source: patient Mode of arrival: ambulatory Limitations: no limitations - History of Present Illness Initial comments: Patient presents to the ED complaining of having constant right-sided chest pain for the past 3 days or so. Patient states that her pain is worse with palpation. Patient also admits to having a cough and mild dyspnea for the past week or so. Patient denies known trauma or injury, fever or chills, headache, focal neuro deficit, radiation of her pain, neck/arm/jaw/back pain, pleuritic pain, hemoptysis, nausea/vomiting/diaphoresis, palpitations, dizziness, abdominal pain, dysuria or urinary symptoms, increased urine output, leg or calf swelling or pain, or any other symptoms or complaints. - Related Data Home Medications Medication Instructions Recorded Confirmed Metoprolol Succinate (ER) [Toprol 25 mg PO DAILY 09/25/17 07/26/21 XL] estradioL [Estrace] 0.5 mg PO DAILY 09/25/17 07/26/21 rOPINIRole HCL [Requip] 1 mg PO HS 02/06/20 07/26/21 ALPRAZolam [Xanax] 1 mg PO DAILY 08/07/20 07/26/21 ARIPiprazole 5 mg PO DAILY 08/07/20 07/26/21 Cyanocobalamin [Vitamin B-12 1,000 mcg SQ Q14D 08/26/20 07/26/21 Injection] Aspirin EC [Ecotrin] 325 mg PO DAILY 07/08/21 07/26/21 Temazepam 30 mg PO HS 07/08/21 07/26/21 Previous Rx's Medication Instructions Recorded Sertraline [Zoloft] 150 mg PO DAILY #30 tab 02/13/20 Furosemide [Lasix] 10 mg PO BID #10 dose 07/08/21 Allergies Allergy/AdvReac Type Severity Reaction Status Date / Time No Known Allergies Allergy Verified 08/10/22 17:03 Review of Systems ROS Statement: Those systems with pertinent positive or pertinent negative responses have been documented in the HPI. ROS Other: All systems not noted in ROS Statement are negative. Past Medical History Past Medical History: COPD, Deep Vein Thrombosis (DVT), GERD/Reflux, Hypertension, Myocardial Infarction (MS), Pneumonia, Vascular Disorder Additional Past Medical History / Comment(s): Previous history of gastric bypass surgery for obesity, remote history of a right lower extremity DVT 1996, peripheral vascular disease with previous angioplasty, restless leg syndrome, iron deficiency, COPD, Last Myocardial Infarction Date:: 10/2014 History of Any Multi-Drug Resistant Organisms: MRSA Date of last positivie culture/infection: 2000 MDRO Source:: abdominal wound Past Surgical History: Appendectomy, Bariatric Surgery, Breast Surgery, Cholecystectomy, Heart Catheterization, Hysterectomy, Orthopedic Surgery Additional Past Surgical History / Comment(s): Gastric bypass and subsequent m ultiple surgeries d/t incision did not heal properly and bowel was nicked, exploratory laparotomies, bilateral fem/pop bypass/stents, recent L wrist fracture with sx/hardware, bilateral feet bunionectomies, L rotator cuff repair, L knee arthroscopy, L breast benign bx, EGD, colonoscopies/benign polypectomy, right collar bone, Past Anesthesia/Blood Transfusion Reactions: No Reported Reaction Past Psychological History: Anxiety, Panic Disorder Smoking Status: Former smoker Past Alcohol Use History: Rare Past Drug Use History: None Reported - Past Family History Father Family Medical History: CVA/TIA, Pneumonia Additional Family Medical History / Comment(s): STROKE AT AGE 50. Father of pne at the age of 63 yrs. Mother Family Medical History: No Reported History Additional Family Medical History / Comment(s): Mother is healthy and 83 yrs old. General Exam Limitations: no limitations General appearance: alert, in no apparent distress Head exam: Present: atraumatic, normocephalic Eye exam: Present: normal appearance, EOMI ENT exam: Present: mucous membranes moist Neck exam: Present: other (Trachea is in midline) Respiratory exam: Present: normal lung sounds bilaterally, other (Right anterior chest wall tenderness that reproduces the patient's pain; no crepitation or deformity is appreciated). Absent: respiratory distress, wheezes, rales, rhonchi, stridor Cardiovascular Exam: Present: normal rhythm, bradycardia, normal heart sounds, other (Normal radial pulses bilaterally) GI/Abdominal exam: Present: soft. Absent: distended, tenderness, guarding Extremities exam: Present: other (Negative Homans sign bilaterally). Absent: tenderness, pedal edema, calf tenderness Neurological exam: Present: alert, oriented X3. Absent: motor sensory deficit Psychiatric exam: Present: normal affect, normal mood Skin exam: Present: warm, dry, intact, normal color Course Vital Signs 08/10/22 17:01 Temperature 98 F Pulse Rate 52 L Respiratory 18 Rate Blood Pressure 144/61 O2 Sat by Pulse 99 Oximetry - Reevaluation(s) Reevaluation #1: 08/10/22 19:45 Patient denies development of any new pain or symptoms while in the ED. Patient remains alert and breathing comfortably with a normal room air oxygen saturation. Patient is aware of her test results, and she feels comfortable being discharged home at this time. Patient was counseled about chest pain/chest wall pain, and she was clearly explained return and follow-up instructions. Patient was instructed to follow up closely with her primary care provider. Patient feels comfortable with this plan. EKG Findings - EKG Comments: EKG Findings:: Sinus bradycardia, no ectopy, normal [place] and QRS intervals, prolonged QTc interval of 480 ms, normal axis, no ST or T-wave abnormality Medical Decision Making - Medical Decision Making Patient reports having constant and reproducible right-sided chest pain for the past 3 days or so. Patient's troponin and d-dimer are both negative. Patient's chest x-ray is unremarkable. Patient's Covid test is negative. I do not think that the patient's pain is from an emergent medical condition. I suspect that the patient's pain is likely chest wall in etiology. Will discharge patient home at this time. Patient feels comfortable with this plan. - Lab Data Result diagrams: 08/10/22 17:15 08/10/22 17:15 Lab Results 08/10/22 08/10/22 08/10/22 Range/Units 17:15 17:15 17:15 WBC 3.2 L (3.8-10.6) k/uL RBC 4.22 (3.80-5.40) m/uL Hgb 13.3 (11.4-16.0) gm/dL Hct 39.3 (34.0-46.0) % MCV 93.1 (80.0-100.0) fL MCH 31.6 (25.0-35.0) pg MCHC 34.0 (31.0-37.0) g/dL RDW 12.8 (11.5-15.5) % Plt Count 112 L (150-450) k/uL MPV 8.2 Neutrophils % 71 % Lymphocytes % 21 % Monocytes % 4 % Eosinophils % 2 % Basophils % 0 % Neutrophils # 2.3 (1.3-7.7) k/uL Lymphocytes # 0.7 L (1.0-4.8) k/uL Monocytes # 0.1 (0-1.0) k/uL Eosinophils # 0.1 (0-0.7) k/uL Basophils # 0.0 (0-0.2) k/uL PT 10.1 (9.0-12.0) sec INR 0.9 (<1.2) APTT 21.9 L (22.0-30.0) sec D-Dimer (<0.60) mg/L FEU Sodium 138 (137-145) mmol/L Potassium 3.7 (3.5-5.1) mmol/L Chloride 103 (98-107) mmol/L Carbon Dioxide 24 (22-30) mmol/L Anion Gap 11 mmol/L BUN 12 (7-17) mg/dL Creatinine 1.06 H (0.52-1.04) mg/dL Est GFR (CKD-EPI)AfAm 63 (>60 ml/min/1.73 sqM) Est GFR (CKD-EPI)NonAf 54 (>60 ml/min/1.73 sqM) Glucose 113 H (74-99) mg/dL Calcium 8.5 (8.4-10.2) mg/dL Total Bilirubin 0.5 (0.2-1.3) mg/dL AST 36 (14-36) U/L ALT 43 H (4-34) U/L Alkaline Phosphatase 111 (38-126) U/L Troponin I (0.000-0.034) ng/mL Total Protein 6.3 (6.3-8.2) g/dL Albumin 4.2 (3.5-5.0) g/dL Coronavirus (PCR) (Not Detectd) 08/10/22 08/10/22 08/10/22 Range/Units 17:15 19:00 19:00 WBC (3.8-10.6) k/uL RBC (3.80-5.40) m/uL Hgb (11.4-16.0) gm/dL Hct (34.0-46.0) % MCV (80.0-100.0) fL MCH (25.0-35.0) pg MCHC (31.0-37.0) g/dL RDW (11.5-15.5) % Plt Count (150-450) k/uL MPV Neutrophils % % Lymphocytes % % Monocytes % % Eosinophils % % Basophils % % Neutrophils # (1.3-7.7) k/uL Lymphocytes # (1.0-4.8) k/uL Monocytes # (0-1.0) k/uL Eosinophils # (0-0.7) k/uL Basophils # (0-0.2) k/uL PT (9.0-12.0) sec INR (<1.2) APTT (22.0-30.0) sec D-Dimer 0.28 (<0.60) mg/L FEU Sodium (137-145) mmol/L Potassium (3.5-5.1) mmol/L Chloride (98-107) mmol/L Carbon Dioxide (22-30) mmol/L Anion Gap mmol/L BUN (7-17) mg/dL Creatinine (0.52-1.04) mg/dL Est GFR (CKD-EPI)AfAm (>60 ml/min/1.73 sqM) Est GFR (CKD-EPI)NonAf (>60 ml/min/1.73 sqM) Glucose (74-99) mg/dL Calcium (8.4-10.2) mg/dL Total Bilirubin (0.2-1.3) mg/dL AST (14-36) U/L ALT (4-34) U/L Alkaline Phosphatase (38-126) U/L Troponin I 0.015 (0.000-0.034) ng/mL Total Protein (6.3-8.2) g/dL Albumin (3.5-5.0) g/dL Coronavirus (PCR) Not Detected (Not Detectd) - Radiology Data Chest x-ray: No active cardiopulmonary disease. No change. Disposition Clinical Impression: Chest pain Narrative: Suspected chest wall pain Disposition: HOME SELF-CARE Condition: Stable Instructions (If sedation given, give patient instructions): Chest Pain (ED), Chest Wall Pain (ED) Additional Instructions: Return to the ER should you develop new or worsening pain, increased shortness of breath, a high fever, feeling dizzy or faint, vomiting, or new or worsening symptoms. Follow up closely with your primary care provider. Is patient prescribed a controlled substance at d/c from ED?: No Referrals: Parmjit Roblero MD [Primary Care Provider] - 1-2 days Time of Disposition: 19:49
== END 2022-08-10 20:02 | disposition home or self-care (01) ==
LOC: EC 16:18
DX: R07.89 Other chest pain (principal); I10 Essential (primary) hypertension; J44.9 Chronic obstructive pulmonary disease, unspecified; Z82.49 Family history of ischemic heart disease and other diseases of the circulatory system; Z87.891 Personal history of nicotine dependence; Z20.822 Contact with and (suspected) exposure to COVID-19
CPT/HCPCS: 36415; 71046; 80053; 84484; 85025; 85379; 85610; 85730; 87635; 93005; 99285

== ENCOUNTER 2022-09-10 10:26 | Inpatient (IN) | payer MEDICARE ==
[2022-09-10] MEDS ORDERED: SODIUM CHLORIDE 0.9% 1,000 ML IV STA (10:44)
[2022-09-10] MEDS ORDERED: MECLIZINE 12.5 MG TAB PO STA (10:46)
--- NOTE | 2022-09-10 10:53 | ED ---
General Adult HPI - General Source: patient, family, RN notes reviewed, old records reviewed Mode of arrival: ambulatory Limitations: no limitations <Teodoro Koch - Last Filed: 09/10/22 12:58> <Reji Ayala - Last Filed: 09/10/22 16:21> - General Chief complaint: Weakness Stated complaint: vomiting, dizzy, dehydrated Time Seen by Provider: 09/10/22 10:35 - History of Present Illness Initial comments: This is a 67-year-old female with a past medical history including COPD, hypertension since number department for weakness. The patient stated "I'm sick for the last 5 days and it hasn't gotten better." The patient stated that approximately 5 days ago she was outside and came inside to go to the bathroom when she had a "dizzy spell" and did pass out. The patient did not remember the events that occurred after and didn't know she hit her head. The patient reported that she "probably passed out." The patient stated that she was at a 1 week ago and was around call would positive people. The patient stated that she had intermittent room spinning as well as generalized body aches and her skin hurting." The patient denied any nausea or vomiting but did state that she had increasing productive cough that made her have a decreased appetite. The patient did state that she had missed several days of her home medications but did state that she took her home medications last night. The patient stated that because her pain was not improving she can continue her department stay. The patient stated that she was unable to walk throughout her home without having the room spin. The patient denied any vertigo symptoms in the past and stated that she was able to without any acute issues prior to the start of her symptoms 5 days ago. The patient was resting in bed comfortably in could move throughout the bed without any acute recurrence of her dizziness and denied any lightheadedness, short of breath, fevers or chills. (Teodoro Koch) - Related Data Home Medications Medication Instructions Recorded Confirmed Metoprolol Succinate (ER) [Toprol 25 mg PO DAILY 09/25/17 09/10/22 XL] estradioL [Estrace] 0.5 mg PO DAILY 09/25/17 09/10/22 ALPRAZolam [Xanax] 1 mg PO DAILY 08/07/20 09/10/22 ARIPiprazole 5 mg PO DAILY 08/07/20 09/10/22 Temazepam 30 mg PO HS 07/08/21 09/10/22 Atorvastatin [Lipitor] 10 mg PO DAILY 09/10/22 09/10/22 Dicyclomine [Bentyl] 10 mg PO TID PRN 09/10/22 09/10/22 rOPINIRole HCL [Requip] 2 mg PO HS 09/10/22 09/10/22 Previous Rx's Medication Instructions Recorded Sertraline [Zoloft] 150 mg PO DAILY #30 tab 02/13/20 Allergies Allergy/AdvReac Type Severity Reaction Status Date / Time donepezil [From Aricept] AdvReac Nausea - Verified 09/10/22 13:03 Dizzy Review of Systems ROS Other: All systems not noted in ROS Statement are negative. <Teodoro Koch - Last Filed: 09/10/22 12:58> ROS Other: All systems not noted in ROS Statement are negative. <Reji Ayala - Last Filed: 09/10/22 16:21> ROS Statement: Those systems with pertinent positive or pertinent negative responses have been documented in the HPI. Past Medical History Past Medical History: COPD, Deep Vein Thrombosis (DVT), GERD/Reflux, Hypertension, Myocardial Infarction ([place]), Pneumonia, Vascular Disorder Additional Past Medical History / Comment(s): Previous history of gastric bypass surgery for obesity, remote history of a right lower extremity DVT 1996, peripheral vascular disease with previous angioplasty, restless leg syndrome, ir on deficiency, COPD, Last Myocardial Infarction Date:: 10/2014 History of Any Multi-Drug Resistant Organisms: MRSA Date of last positivie culture/infection: 2000 MDRO Source:: abdominal wound Past Surgical History: Appendectomy, Bariatric Surgery, Breast Surgery, Cholecystectomy, Heart Catheterization, Hysterectomy, Orthopedic Surgery Additional Past Surgical History / Comment(s): Gastric bypass and subsequent multiple surgeries d/t incision did not heal properly and bowel was nicked, exploratory laparotomies, bilateral fem/pop bypass/stents, recent L wrist fracture with sx/hardware, bilateral feet bunionectomies, L rotator cuff repair, L knee arthroscopy, L breast benign bx, EGD, colonoscopies/benign polypectomy, right collar bone, Past Anesthesia/Blood Transfusion Reactions: No Reported Reaction Past Psychological History: Anxiety, Panic Disorder Smoking Status: Former smoker Past Alcohol Use History: Occasional Past Drug Use History: None Reported - Past Family History Father Family Medical History: CVA/TIA, Pneumonia Additional Family Medical History / Comment(s): STROKE AT AGE 50. Father of pne at the age of 63 yrs. Mother Family Medical History: No Reported History Additional Family Medical History / Comment(s): Mother is healthy and 83 yrs old. <Teodoro Koch - Last Filed: 09/10/22 12:58> General Exam Limitations: no limitations General appearance: alert, in no apparent distress Head exam: Present: atraumatic, normocephalic Eye exam: Present: normal appearance, PERRL, EOMI ENT exam: Present: normal exam, mucous membranes moist Neck exam: Present: normal inspection, full ROM Respiratory exam: Present: normal lung sounds bilaterally Cardiovascular Exam: Present: regular rate, normal rhythm, normal heart sounds GI/Abdominal exam: Present: soft, normal bowel sounds Extremities exam: Present: normal inspection, full ROM, normal capillary refill Back exam: Present: normal inspection, full ROM Neurological exam: Present: alert, oriented X3, CN II-XII intact Psychiatric exam: Present: normal affect, normal mood Skin exam: Present: warm, dry <Teodoro Koch - Last Filed: 09/10/22 12:58> Course - Reevaluation(s) Time: 12:45 <Teodoro Koch - Last Filed: 09/10/22 12:58> Vital Signs 09/10/22 09/10/22 09/10/22 10:28 10:38 11:30 Temperature 97.7 F Pulse Rate 52 L 42 L Respiratory 18 20 16 Rate Blood Pressure 180/77 145/68 O2 Sat by Pulse 96 99 Oximetry 09/10/22 09/10/22 12:54 14:51 Temperature Pulse Rate 48 L 82 Respiratory 18 16 Rate Blood Pressure 204/99 175/130 O2 Sat by Pulse 97 99 Oximetry - Reevaluation(s) Reevaluation #1: 09/10/22 12:[address] Rahman regarding the patient's findings on CT head. CTA head and neck was ordered and interventional neuro and vascular surgery was contacted. Based on the CTA head and neck results and the recommendations by interventional, the patient will be disorder at this time. If CTA head and neck was negative interventional says no intervention necessary, the patient could be placed in ICU for continued monitoring and observation here per Dr. Rahman (Teodoro Koch) EKG Findings - EKG Comments: EKG Findings:: EKG was obtained that showed a rate of 43, AR interval of 197, QRS duration of 84 and QTC of 425. This EKG showed sinus bradycardia without any ST segment elevations or depressions noted. There were no old EKGs for comparison at this time. <Teodoro Koch - Last Filed: 09/10/22 12:58> Medical Decision Making - Lab Data Result diagrams: 09/10/22 10:51 09/10/22 10:51 <Teodoro Koch - Last Filed: 09/10/22 12:58> - Lab Data Result diagrams: 09/10/22 10:51 09/10/22 10:51 <Reji Ayala Stephany - Last Filed: 09/10/22 16:21> - Medical Decision Making The patient was seen and evaluated in the department. Physical exam, the pat ient was resting in bed without any acute distress. The patient was able to get onto the bed without any acute problems or complaints. Vital signs were stable and within normal limits. Due to the nature of the patient's complaints, a full workup was obtained including CT head, CT C-spine, CT abdomen and pelvis with contrast as well as a chest x-ray. Laboratory workup was also obtained at this time. Due to the patient stated that she had room spinning sensation, initially meclizine was ordered. Laboratory workup was largely within normal limits. Chest x-ray was negative and CT abdomen and pelvis with contrast was also negative for any acute pathology. The patient stated that her dizziness or room spinning sensation began [address] head was obtained that showed a 3. centimeter hypodense infarct of the right cerebellum. The radiologist did not state there is any mass effect or any concern for herniation. Due to these findings, the neurologist, Dr. Rahman was contacted and did recommend CTA head and neck due to the nature of the patient's symptoms and findings. Based on these results, interventional will be contacted for further recommendations. If the patient has a negative CTA head and neck and negative for possible intervention, the patient was recommended to be placed in ICU here for further workup and evaluation. The patient had received a CT abdomen and pelvis with contrast prior to these findings and therefore CT head and neck was needed however the patient did need a significant contrast load. I spoke with the radiologist and due to the emergent findings an emergent, I did order the CT head and neck despite the large contrast load in the setting of symptoms that the patient is currently experiencing. The patient was given further fluids to offset the contrast load. The patient continued to remain stable abuse and now coming physician pending completion of the workup and final disposition. (Teodoro Koch) Patient's care is signed out awaiting CT angiography. Patient had subacute infarct on plain CT per she's had dizziness and unsteady gait for the past minimal [address] angiography was pending with disposition of either transfer versus admit. Angiography was reviewed by Dr. Ashford, and he is recommending medical management at this time. Dr. Fung is aware of the patient. He requests the patient be admitted to the ICU. She will be admitted to this hospital awaiting further evaluation treatment. (Reji Ayala) - Lab Data Lab Results 09/10/22 09/10/22 09/10/22 Range/Units 10:51 10:51 10:51 WBC 3.9 (3.8-10.6) k/uL RBC 4.69 (3.80-5.40) m/uL Hgb 14.7 (11.4-16.0) gm/dL Hct 42.2 (34.0-46.0) % MCV 90.0 (80.0-100.0) fL MCH 31.5 (25.0-35.0) pg MCHC 35.0 (31.0-37.0) g/dL RDW 12.6 (11.5-15.5) % Plt Count 112 L (150-450) k/uL MPV 8.9 Neutrophils % 65 % Lymphocytes % 27 % Monocytes % 5 % Eosinophils % 2 % Basophils % 1 % Neutrophils # 2.5 (1.3-7.7) k/uL Lymphocytes # 1.1 (1.0-4.8) k/uL Monocytes # 0.2 (0-1.0) k/uL Eosinophils # 0.1 (0-0.7) k/uL Basophils # 0.0 (0-0.2) k/uL PT 10.0 (9.0-12.0) sec INR 0.9 (<1.2) APTT 22.2 (22.0-30.0) sec Sodium 139 (137-145) mmol/L Potassium 4.0 (3.5-5.1) mmol/L Chloride 101 (98-107) mmol/L Carbon Dioxide 29 (22-30) mmol/L Anion Gap 9 mmol/L BUN 14 (7-17) mg/dL Creatinine 1.02 (0.52-1.04) mg/dL Est GFR (CKD-EPI)AfAm 66 (>60 ml/min/1.73 sqM) Est GFR (CKD-EPI)NonAf 57 (>60 ml/min/1.73 sqM) Glucose 105 H (74-99) mg/dL Plasma Lactic Acid Cristobal (0.7-2.0) mmol/L Calcium 9.3 (8.4-10.2) mg/dL Magnesium 2.1 (1.6-2.3) mg/dL Total Bilirubin 0.6 (0.2-1.3) mg/dL AST 31 (14-36) U/L ALT 31 (4-34) U/L Alkaline Phosphatase 130 H (38-126) U/L Troponin I (0.000-0.034) ng/mL Total Protein 6.8 (6.3-8.2) g/dL Albumin 4.4 (3.5-5.0) g/dL Urine Color Urine Appearance (Clear) Urine pH (5.0-8.0) Ur Specific [place] (1.001-1.035) Urine Protein (Negative) Urine Glucose (UA) (Negative) Urine Ketones (Negative) Urine Blood (Negative) Urine Nitrite (Negative) Urine Bilirubin (Negative) Urine Urobilinogen (<2.0) mg/dL Ur Leukocyte Esterase (Negative) Coronavirus (PCR) (Not Detectd) Influenza Type A RNA (Not Detectd) Influenza Type B (PCR) (Not Detectd) 09/10/22 09/10/22 09/10/22 Range/Units 10:51 10:51 10:51 WBC (3.8-10.6) k/uL RBC (3.80-5.40) m/uL Hgb (11.4-16.0) gm/dL Hct (34.0-46.0) % MCV (80.0-100.0) fL MCH (25.0-35.0) pg MCHC (31.0-37.0) g/dL RDW (11.5-15.5) % Plt Count (150-450) k/uL MPV Neutrophils % % Lymphocytes % % Monocytes % % Eosinophils % % Basophils % % Neutrophils # (1.3-7.7) k/uL Lymphocytes # (1.0-4.8) k/uL Monocytes # (0-1.0) k/uL Eosinophils # (0-0.7) k/uL Basophils # (0-0.2) k/uL PT (9.0-12.0) sec INR (<1.2) APTT (22.0-30.0) sec Sodium (137-145) mmol/L Potassium (3.5-5.1) mmol/L Chloride (98-107) mmol/L Carbon Dioxide (22-30) mmol/L Anion Gap mmol/L BUN (7-17) mg/dL Creatinine (0.52-1.04) mg/dL Est GFR (CKD-EPI)AfAm (>60 ml/min/1.73 sqM) Est GFR (CKD-EPI)NonAf (>60 ml/min/1.73 sqM) Glucose (74-99) mg/dL Plasma Lactic Acid Cristobal 0.9 (0.7-2.0) mmol/L Calcium (8.4-10.2) mg/dL Magnesium (1.6-2.3) mg/dL Total Bilirubin (0.2-1.3) mg/dL AST (14-36) U/L ALT (4-34) U/L Alkaline Phosphatase (38-126) U/L Troponin I <0.012 (0.000-0.034) ng/mL Total Protein (6.3-8.2) g/dL Albumin (3.5-5.0) g/dL Urine Color Urine Appearance (Clear) Urine pH (5.0-8.0) Ur Specific [place] (1.001-1.035) Urine Protein (Negative) Urine Glucose (UA) (Negative) Urine Ketones (Negative) Urine Blood (Negative) Urine Nitrite (Negative) Urine Bilirubin (Negative) Urine Urobilinogen (<2.0) mg/dL Ur Leukocyte Esterase (Negative) Coronavirus (PCR) (Not Detectd) Influenza Type A RNA Not Detected (Not Detectd) Influenza Type B (PCR) Not Detected (Not Detectd) 09/10/22 09/10/22 Range/Units 10:51 14:59 WBC (3.8-10.6) k/uL RBC (3.80-5.40) m/uL Hgb (11.4-16.0) gm/dL Hct (34.0-46.0) % MCV (80.0-100.0) fL MCH (25.0-35.0) pg MCHC (31.0-37.0) g/dL RDW (11.5-15.5) % Plt Count (150-450) k/uL MPV Neutrophils % % Lymphocytes % % Monocytes % % Eosinophils % % Basophils % % Neutrophils # (1.3-7.7) k/uL Lymphocytes # (1.0-4.8) k/uL Monocytes # (0-1.0) k/uL Eosinophils # (0-0.7) k/uL Basophils # (0-0.2) k/uL PT (9.0-12.0) sec INR (<1.2) APTT (22.0-30.0) sec Sodium (137-145) mmol/L Potassium (3.5-5.1) mmol/L Chloride (98-107) mmol/L Carbon Dioxide (22-30) mmol/L Anion Gap mmol/L BUN (7-17) mg/dL Creatinine (0.52-1.04) mg/dL Est GFR (CKD-EPI)AfAm (>60 ml/min/1.73 sqM) Est GFR (CKD-EPI)NonAf (>60 ml/min/1.73 sqM) Glucose (74-99) mg/dL Plasma Lactic Acid Cristobal (0.7-2.0) mmol/L Calcium (8.4-10.2) mg/dL Magnesium (1.6-2.3) mg/dL Total Bilirubin (0.2-1.3) mg/dL AST (14-36) U/L ALT (4-34) U/L Alkaline Phosphatase (38-126) U/L Troponin I (0.000-0.034) ng/mL Total Protein (6.3-8.2) g/dL Albumin (3.5-5.0) g/dL Urine Color Yellow Urine Appearance Clear (Clear) Urine pH 6.0 (5.0-8.0) Ur Specific [place] >1.050 H (1.001-1.035) Urine Protein Trace H (Negative) Urine Glucose (UA) Negative (Negative) Urine Ketones Trace H (Negative) Urine Blood Negative (Negative) Urine Nitrite Negative (Negative) Urine Bilirubin Negative (Negative) Urine Urobilinogen <2.0 (<2.0) mg/dL Ur Leukocyte Esterase Negative (Negative) Coronavirus (PCR) Not Detected (Not Detectd) Influenza Type A RNA (Not Detectd) Influenza Type B (PCR) (Not Detectd) Critical Care Time Critical Care Time: Yes Total Critical Care Time: 42 <Teodoro Koch - Last Filed: 09/10/22 12:58> Disposition <Teodoro Koch - Last Filed: 09/10/22 12:58> Is patient prescribed a controlled substance at d/c from ED?: No Time of Disposition: 16:20 <Reji Ayala - Last Filed: 09/10/22 16:21> Clinical Impression: CVA (cerebral vascular accident), Cerebellar infarction Disposition: ADMITTED IP TO THIS HOSP Condition: Stable Referrals: Parmjit Roblero MD [Primary Care Provider] - 1-2 days
[2022-09-10 11:06] LABS: Basophils % (A) 1 %; Eosinophils # (A) 0.1 k/uL (0-0.7); Eosinophils % (A) 2 %; HCT 42.2 % (34.0-46.0); HGB 14.7 gm/dL (11.4-16.0); Lymphocytes # (A) 1.1 k/uL (1.0-4.8); Lymphocytes % (A) 27 %; MCH 31.5 pg (25.0-35.0); Mean Platelet Volume 8.9; Monocytes # (A) 0.2 k/uL (0-1.0); Monocytes % (A) 5 %; Neutrophils # (A) 2.5 k/uL (1.3-7.7); Neutrophils % (A) 65 %; Platelet Count 112 k/uL (150-450); RBC 4.69 m/uL (3.80-5.40); RDW 12.6 % (11.5-15.5); WBC 3.9 k/uL (3.8-10.6)
--- NOTE | 2022-09-10 11:10 | XR ---
EXAMINATION TYPE: XR chest 2V DATE OF EXAM: 09/10/2022 COMPARISON: Chest x-ray 08/10/2022 HISTORY: Weakness TECHNIQUE: Frontal and lateral views of the chest are obtained. FINDINGS: Patient is rotated. There is no focal air space opacity, pleural effusion, or pneumothorax seen. The cardiac silhouette size is likely stable accounting for differences in technique. The os seous structures are stable, postop change noted to the right shoulder. Surgical clips are present in the upper abdomen. IMPRESSION: No acute cardiopulmonary process.
[2022-09-10 11:20] LABS: INR 0.9 (<1.2); Partial Thromboplastin Time 22.2 sec (22.0-30.0)
[2022-09-10 11:25] LABS: Albumin 4.4 g/dL (3.5-5.0); Calcium 9.3 mg/dL (8.4-10.2); Magnesium 2.1 mg/dL (1.6-2.3); Total Bilirubin 0.6 mg/dL (0.2-1.3); Total Protein 6.8 g/dL (6.3-8.2)
--- NOTE | 2022-09-10 12:27 | CT ---
EXAMINATION TYPE: CT brain flores jose con DATE OF EXAM: 09/10/2022 COMPARISON: 12/25/2014 HISTORY: 67-year-old female pain after Fall, Weakness CT DLP: 1409 mGycm Automated exposure control for dose reduction was used. Technique: Examination of the head was done in axial plane without intravenous contrast. Coronal and sagittal reconstructions performed. CT of the cervical spine was obtained in axial plane without intravenous injection of contrast mater ial. Coronal and sagittal reformatted images were obtained from the axial views for evaluation of f ractures, spinal alignment and canal. FINDINGS: Head: There is a large 3.8 cm area of hypodensity involving the inferior medial right cerebellar hemisphere . Very slight asymmetric mass effect on the fourth ventricle. No hydrocephalus. No evidence for acute intracranial hemorrhage, midline shift, effacement of basal cirrhotic cisterns, or extra-axial fluid collection. Leftward nasal septal deviation. A right-sided nose ring is present. Mastoid air cells are pneumatize d. Orbits and globes are intact. Cervical spine: No craniocervical junction abnormality, predental space widening, or prevertebral soft tissue swellin g. Mild to moderate this is simply degenerative change particularly C5-C7 levels. There may be mild narr owing of the spinal canal at these levels. Mild scattered facet arthropathy. Uncovertebral joint arthropathy greater in the lower cervical spine . No acute fracture of the cervical spine. Moderate to severe right and moderate left neuroforaminal stenosis at C5-C6. At C6/C7, mild to moderate right and mild left neural foraminal stenosis. Sagittal and coronal reformatted images confirm above findings. COMBINED IMPRESSION: 1. New 3.8 cm hypodensity inferior medial right cerebellar hemisphere. This is very slight mass effec t on the fourth ventricle. No hydrocephalus or midline shift. No hemorrhagic transformation. An acute to subacute infarct is suggested (greater than 6 hours in duration given the degree of hypodensity). Called to Dr. Koch in the ER at 12:20 pm. 2. Mild to moderate spondylotic change in the cervical spine. No acute fracture or malalignment.
--- NOTE | 2022-09-10 12:33 | CT ---
EXAMINATION TYPE: CT abdomen pelvis w con DATE OF EXAM: 09/10/2022 COMPARISON: None HISTORY: Fall, Weakness, Generalized abdominal pain CT DLP: 1427.1 mGycm Automated exposure control for dose reduction was used. CONTRAST: CT scan of the abdomen pelvis is performed with IV Contrast, patient injected with 100 ml mL of Isovu e 300. FINDINGS- LUNG BASES- No significant abnormality is appreciated. LIVER/GB- there remains a curvilinear hyperdensity along the lower margin of the liver which may be related to calcification or surgical clip. Fluid collection may represent a low-lying gallbladder co rrelate with surgical history. Additionally correlate for possible gallbladder polyp or stone. PANCREAS- No gross abnormality is seen. SPLEEN- homogeneous but measures 14 cm.. ADRENALS- subcentimeter nodularity in the right adrenal gland too small to characterize.. KIDNEYS/BLADDER- no hydronephrosis nephrolithiasis or renal mass. BOWEL- postsurgical change involving the epigastrium and gastric region. Bowel gas pattern is nonspe cific. Additional bowel surgery in the left abdomen noted. No evidence of obstruction. Appendix not s een with certainty. LYMPH NODES- No greater than 1cm abdominal or pelvic lymph nodes are appreciated. OSSEOUS STRUCTURES- severe degenerative disc disease L5-S1 with multilevel hypertrophic and degenera tive changes. OTHER- atherosclerotic change of the aorta. And spinal note made of a retroaortic left renal vein. IMPRESSION- 1. No acute process. Linear density seen along the lower margin of the liver could been the basis of surgical intervention correlate clinically. Low density fluid density seen adjacent to this region ma y represent a low-lying gallbladder correlate with surgical history with possible gallstone or polyp. 2. Indeterminate right adrenal mass measuring subcentimeter too small to characterize but stable from prior exam. 3. Spleen measures 14 cm compatible with splenomegaly
[2022-09-10] MEDS ORDERED: SODIUM CHLORIDE 0.9% 1,000 ML IV ONE (13:04)
[2022-09-10] MEDS ORDERED: hydrALAZINE HCL 20 MG/ML 1 ML VIAL IVP STA (13:10)
[2022-09-10] MEDS ORDERED: ATORVASTATIN 80 MG TAB PO STA (14:44)
[2022-09-10] MEDS ORDERED: ASPIRIN 325 MG TAB PO STA (15:12)
[2022-09-10] MEDS ORDERED: TICAGRELOR 90 MG TAB PO STA (15:12)
--- NOTE | 2022-09-10 15:19 | CT ---
EXAMINATION TYPE: CT angio head neck DATE OF EXAM: 09/10/2022 HISTORY: cava COMPARISON: 09/10/2022 CT DLP: 459.3 mGycm. Automated Exposure Control for Dose Reduction was Utilized. TECHNIQUE: CTA scan of the head and neck is performed with IV Contrast, patient injected with 65cc m L of Isovue 370, axial images are obtained, coronal and sagittal reformatted images are reviewed. 3D reconstructed images are created on an independent workstation and reviewed. FINDINGS: Correlate for COPD. There is atherosclerotic change involving the aortic arch including the origin of the great vessel. Standard three-vessel anatomy noted involving the aortic arch. Subclavia n arteries are patent as visualized. Brachiocephalic and proximal common carotid arteries are patent. There is extensive atherosclerotic plaque involving the mid and portion of the left common carotid a rtery with the maximal reduction diameter of approximately 50%. At the level of the carotid bifurcation appears to be a greater than 70% severe left-sided stenosis a pproximately 50-60% right-sided carotid bifurcation stenosis. The distal ICAs are somewhat diminutive bilaterally but appear to be patent. Intracranial atherosclerotic disease involving the cavernous se gment bilateral carotid artery. Vertebral arteries are patent and the vertebral basilar system is somewhat diminutive. Posterior cere bral artery on the left appears to originate from the internal circulation. The right posterior cereb ral artery appears to be patent. Superior cerebellar arteries diminutive and not well seen entirety. Mild prominence the anterior to mid region without evidence of focal aneurysm. Right middle cerebral artery and left middle cerebral artery M1 segments appear to be patent. The enhanced distally. No def inite focal stenosis or occlusion. Anterior cerebral arteries are patent. IMPRESSION: 1. Extensive atherosclerotic plaque at the left carotid system with a greater than 70% left carotid b ifurcation stenosis suspected. Approximately 50-60% stenosis suspected on the right. Correlate with d edicated arteriogram as clinically warranted. 2. Vertebral basilar system is diminutive in size but enhances. Correlate for vertebrobasilar insuffi ciency. 3. Right superior cerebellar artery appears to be markedly diminutive in size The inferior cerebellar artery is not well seen and therefore, Could not exclude a stenosis or throm bosis. Correlate with MRI as clinically warranted. NASCET criteria was used in interpretation of this exam?
[2022-09-10 15:26] LABS: Appearance,Urine Clear (Clear); Bilirubin,Urine Negative (Negative); Blood,Urine Negative (Negative); Color,Urine Yellow; Glucose,Urine (UA) Negative (Negative); Ketones,Urine Trace (Negative); Leukocyte Esterase,Urine Negative (Negative); Nitrite,Urine Negative (Negative); Protein,Urine Trace (Negative); Urobilinogen,Urine <2.0 mg/dL (<2.0)
[2022-09-10 15:31] LABS: Specific Gravity,Urine >1.050 (1.001-1.035)
[2022-09-10] MEDS ORDERED: NALOXONE 0.4 MG/ML 1 ML VIAL IV PRN (16:21)
--- NOTE | 2022-09-10 16:32 | P.CNNES ---
History of Present Illness Consult date: 09/10/22 Requesting physician: Reji Ayala Reason for Consult: stroke History of Present Illness: This is a 67-year-old woman with medical history of hypertension, right carotid stenosis up to 69%, myocardial infarction, gastric bypass who presented emergency department and because of dizziness for the past 5 days. Patient is accompanied with her mother. She stated about 5 days ago she noticed that she's having dizziness and she noticed that the dizziness is at rest or with position she's been having nausea and initially noticed vomiting the first day that resolved. And recently she noticed that that she's having ringing of both ears that prompted her to come to the emergency department. She denied any focal weakness, any slurring the speech, difficulty swallowing, any difficulty getting her words out, any numbness. She denies any history of stroke or TIA in the past. She denies being on any antiplatelets. Some other workup during this ED visit consisted of: Initial vital signs his blood pressure of 180/77, heart rate of 97.7 Fahrenheit oral, heart rate of 52, respiratory of 18 and pulse ox of 96% room air. Maciel virus PCR was not detected. CT of the head is reported as new 3. centimeter hypodensity inferior medial right cerebellar hemisphere. This is very slight mass effect on the fourth dominick tricle. No hydrocephalus or midline shift. No hemorrhagic transformation. An acute to subacute infarct is suggested greater than 6 hours in duration given the degree of hypodensity. Mild to moderate spondylitic changes in the cervical spine. No acute fracture or malalignment. I personally reviewed the CT of the head and I agree with the report. As a result patient did not receive IV TPA because the patient is on side the window (symptoms of onset is about 5 days out) and the risk outweigh the benefits. My NIH stroke scale was 1 for visual disturbance. Review of Systems Review of system: The 12 point system was reviewed and apparent positive and negative per HPI. Past Medical History Past Medical History: COPD, Deep Vein Thrombosis (DVT), GERD/Reflux, Hypertension, Myocardial Infarction ([place]), Pneumonia, Vascular Disorder Additional Past Medical History / Comment(s): Previous history of gastric bypass surgery for obesity, remote history of a right lower extremity DVT 1996, peripheral vascular disease with previous angioplasty, restless leg syndrome, iron deficiency, COPD, Last Myocardial Infarction Date:: 10/2014 History of Any Multi-Drug Resistant Organisms: MRSA Date of last positivie culture/infection: 2000 MDRO Source:: abdominal wound Past Surgical History: Appendectomy, Bariatric Surgery, Breast Surgery, Cholecystectomy, Heart Catheterization, Hysterectomy, Orthopedic Surgery Additional Past Surgical History / Comment(s): Gastric bypass and subsequent multiple surgeries d/t incision did not heal properly and bowel was nicked, exploratory laparotomies, bilateral fem/pop bypass/stents, recent L wrist fracture with sx/hardware, bilateral feet bunionectomies, L rotator cuff repair, L knee arthroscopy, L breast benign bx, EGD, colonoscopies/benign polypectomy, right collar bone, Past Anesthesia/Blood Transfusion Reactions: No Reported Reaction Past Psychological History: Anxiety, Panic Disorder Smoking Status: Former smoker Past Alcohol Use History: Occasional Past Drug Use History: None Reported - Past Family History Father Family Medical History: CVA/TIA, Pneumonia Additional Family Medical History / Comment(s): STROKE AT AGE 50. Father of pne at the age of 63 yrs. Mother Family Medical History: No Reported History Additional Family Medical History / Comment(s): Mother is healthy and 83 yrs old. Medications and Allergies Home Medications Medication Instructions Recorded Confirmed Type Metoprolol Succinate (ER) [Toprol 25 mg PO DAILY 09/25/17 09/10/22 History XL] estradioL [Estrace] 0.5 mg PO DAILY 09/25/17 09/10/22 History Sertraline [Zoloft] 150 mg PO DAILY #30 tab 02/13/20 09/10/22 Rx ALPRAZolam [Xanax] 1 mg PO DAILY 08/07/20 09/10/22 History ARIPiprazole 5 mg PO DAILY 08/07/20 09/10/22 History Temazepam 30 mg PO HS 07/08/21 09/10/22 History Atorvastatin [Lipitor] 10 mg PO DAILY 09/10/22 09/10/22 History Dicyclomine [Bentyl] 10 mg PO TID PRN 09/10/22 09/10/22 History rOPINIRole HCL [Requip] 2 mg PO HS 09/10/22 09/10/22 History Allergies Allergy/AdvReac Type Severity Reaction Status Date / Time donepezil [From Aricept] AdvReac Nausea - Verified 09/10/22 13:03 Dizzy Physical Examination - Vital Signs Vital Signs: Vital Signs Temp Pulse Resp BP Pulse Ox 09/10/22 12:54 48 L 18 204/99 97 09/10/22 11:30 42 L 16 145/68 99 09/10/22 10:38 20 09/10/22 10:28 97.7 F 52 L 18 180/77 96 Intake and Output 09/09/22 09/10/22 09/10/22 22:59 06:59 14:59 Other: Weight 87.09 kg GENERAL: The patient is lying in bed and is not in acute distress. CHEST: The heart rate is regular rate rhythm. No murmurs to auscultation. LUNG: Clear to auscultation bilaterally no wheezing noted throughout. Not labored breathing. ABDOMEN/GI: Bowel sounds present in all 4 quadrants. No tenderness to palpation throughout. NEUROLOGICAL: Higher mental function: The patient is awake, alert, oriented to self, place and time. Patient is following commands. No aphasia and no neglect. Cranial nerves: The pupils are round, equal and reactive to light and accommodation. Visual valadez was inconclusive but appears bilateral upper field cut bilaterally. Extraocular movement is intact no nystagmus is noted. Facial sensation is normal to touch throughout. The facial strength is normal throughout. Hearing is normal bilaterally to hand rub. Tongue is midline and moved [id number] without any difficulty. No dysarthria is noted. Shoulder sh rug is normal bilaterally. Motor: The strength is 5 over 5 throughout. Normal tone and bulk. Cerebellum: Normal finger to nose bilaterally. Sensation: Sensation is normal to touch throughout. Reflexes (right/left): 3+ over the brachioradialis bilaterally. Otherwise 2+ throughout. Plantars are mute bilaterally. Results - Laboratory Findings CBC and BMP: 09/10/22 10:51 09/10/22 10:51 Abnormal Lab Findings: Abnormal Labs 09/10/22 09/10/22 10:51 10:51 Plt Count 112 L Glucose 105 H Alkaline Phosphatase 130 H Assessment and Plan Assessment: Subacute stroke over the right cerebellar with mild mass effect on 4th ventricle (presented with Dizziness for the past 5 days with tinnitus nausea and transient episode of vomiting). Hypertension History of right carotid stenosis about 69% History of myocardial infarction History of gastric bypass Plan: I notified the ED team to pursue with the CT angiography of the head and neck stat and if there is any clots that intervention neurology team needs to be informed STAT for possible intervention. But if the CT angiography of the head and neck is negative for any clot then recommend the patient dad to be taken to the ICU for closer monitoring especially with a mild mass effect on the fourth ventricle. If ends up staying in our facility will get rest of stroke work-up: MRI of the brain with and without, lipid panel, 2-D echo, will consult PT and OT. I will start the patient on ASA 81mg daily and Brilinta 90mg 1 tab bid with loading one time of 180mg. Started Lipitor 80mg qhs. Keep the blood pressure permissive and control if SBP >220 or DBP >110 for now. Goal of SBP is 140-180. Q2 neuro checks. Cardiac monitoring PT, OT and CLOCK ASSEMBLER are consulted For DVT prophylaxis: started on subq heparin 5000U every 8 hours. Thank you for the consultation. Walker Rahman M.D. Neuro-Hospitalist. Time with Patient: Greater than 30
--- NOTE | 2022-09-10 18:04 | MR ---
EXAMINATION TYPE: MR brain wo/w con DATE OF EXAM: 09/10/2022 COMPARISON: 12/26/2014 HISTORY: Fall, weakness, evaluate for stroke. CONTRAST: Standard multiplanar, multisequence MRI departmental protocol images were obtained without contrast a nd with 9 mL intravenous Gadavist gadolinium contrast. There is cerebral cortical atrophy. Diffusion images show two 4 mm foci of increased signal in the ri ght occipital lobe that could be acute lacunar infarcts. There is lobulated 4 cm area of increased si gnal on the T2 and FLAIR and diffusion images in the inferior medial right cerebellar hemisphere cons istent with infarct. This is likely subacute infarct. There are scattered areas of increased signal i n the cerebral hemispheres on the T2 and FLAIR images in the periventricular white matter measuring u p to 7 mm. Total number is less than 10. The brainstem is intact. Sella turcica is intact. The corpus callosum is intact. The contrast images show no pathologic enhancement. There is normal enhancement of the venous sinuses . IMPRESSION: Large subacute infarct in the right inferior cerebellar hemisphere is a change compared to old exam. There is probably a small acute lacunar infarcts in the right occipital lobe.
[2022-09-10 21:12] LABS: Glucose,Whole Blood 102 mg/dL (70-110)
[2022-09-10] MEDS ORDERED: METOPROLOL SUCCINATE (ER) 25 MG TAB.ER.24H PO SCH (21:30)
[2022-09-10] MEDS: ACETAMINOPHEN TAB 325 MG TAB PO PRN (21:33)
[2022-09-10] MEDS: ONDANSETRON 4 MG/2 ML VIAL IVP PRN (21:34)
[2022-09-10 22:46] LABS: Chol/HDL Ratio 2.84 Ratio; LDL Cholesterol,Calculated 117.8 mg/dL (0.0-131.0); VLDL Calculation 18.24 mg/dL (5.00-40.00)
[2022-09-10] MEDS ORDERED: SODIUM CHLORIDE 0.9% 500 ML 500 ML IV ONE (23:04)
[2022-09-10] MEDS: HEPARIN SODIUM,PORCINE/PF 5,000 UNIT/0.5 ML SYRINGE SQ SCH (23:51)
[2022-09-11] MEDS ORDERED: SODIUM CHLORIDE 0.9% 500 ML 500 ML IV ONE ×2 (01:02→02:57)
[2022-09-11 07:55] LABS: Basophils % (A) 1 %; Eosinophils # (A) 0.1 k/uL (0-0.7); Eosinophils % (A) 2 %; HCT 38.7 % (34.0-46.0); Lymphocytes # (A) 0.8 k/uL (1.0-4.8); Lymphocytes % (A) 25 %; MCH 30.9 pg (25.0-35.0); MCHC 33.5 g/dL (31.0-37.0); Mean Platelet Volume 8.7; Monocytes # (A) 0.2 k/uL (0-1.0); Monocytes % (A) 5 %; Neutrophils # (A) 2.1 k/uL (1.3-7.7); Neutrophils % (A) 67 %; Platelet Count 105 k/uL (150-450); RBC 4.21 m/uL (3.80-5.40); RDW 12.8 % (11.5-15.5); WBC 3.2 k/uL (3.8-10.6)
[2022-09-11 08:04] LABS: Calcium 8.2 mg/dL (8.4-10.2)
[2022-09-11] MEDS: ASPIRIN 81 MG PO SCH (08:16)
[2022-09-11] MEDS: ACETAMINOPHEN TAB 325 MG TAB PO PRN (08:16)
[2022-09-11] MEDS: TICAGRELOR 90 MG TAB PO SCH ×2 (08:16→21:39)
[2022-09-11] MEDS: ONDANSETRON 4 MG/2 ML VIAL IVP PRN (08:16)
[2022-09-11] MEDS: HEPARIN SODIUM,PORCINE/PF 5,000 UNIT/0.5 ML SYRINGE SQ SCH ×2 (08:16→15:57)
--- NOTE | 2022-09-11 09:20 | P.CNPUL ---
History of Present Illness Consult date: 09/11/22 Chief complaint: CVA History of present illness: 67-year-old female patient, was admitted to the intensive. For blood pressure monitoring after stroke. The patient presented to the emergency department having dizziness for about 5 days. She was also having some nausea for the past 5 days in addition to the dizziness and she had emesis. She also noticed some ringing in her ears. Denied having any focal weakness, change in her speech or swallow. No previous history of CVA. CAT scan of the brain was done in the emergency room that showed a large subacute infarct in the rightinferior cerebellar hemispheres and probably a small acute lacunar infarct in the right occipital lobe. Initial blood pressure was as high as 207/80. Based on that, the patient was transferred to the intensive. For further blood pressure monitoring. She was given no active antihypertensive medication. She was given a dose of Lopressor yesterday at a dose of 25 mg by mouth and that dropped her blood pressure significantly. Since then, she was not given any blood pressure medication. Most recent BP is 140/85. She is otherwise doing well. No headac hes. No altered mentation. No focal neurological deficits. 9 Zocor worsening in her neuro status since yesterday. As mentioned, CT of the head showed a cerebellar hemisphere stroke. There was also slight mass effect on the fourth ventricle. No evidence of hydrocephalus. The patient was not a candidate for thrombolytics. The patient also had a CTA of the brain that showed 70% left carotid stenosis, 50-60% right carotid stenosis and there was extensive atherosclerotic plaques in the left carotid system and the posterior circulation including the vertebral basilar system had diminished in size but it has nicely. There could be a component of vertebrobasilar basilar insufficiency. Review of Systems Constitutional: Reports as per HPI Eyes: denies as per HPI, denies blurred vision, denies bulging eye, denies decreased vision, denies diplopia, denies discharge, denies dry eye, denies irritation, denies itching, denies pain, denies photophobia, denies loss of peripheral vision, denies loss of vision, denies tunnel vision/blind spots Ears: deny: decreased hearing, ear discharge, earache, tinnitus Breasts: absent: as per HPI, change in shape, gynecomastia, masses, nipple discharge, pain, skin changes, swelling Cardiovascular: Reports as per HPI Respiratory: Reports as per HPI Gastrointestinal: Reports as per HPI, Reports nausea Genitourinary: Reports as per HPI Menstruation: Reports as per HPI Musculoskeletal: Reports as per HPI Musculoskeletal: absent: ankle pain, ankle stiffness, ankle swelling, as per HPI, elbow pain, elbow stiffness, elbow swelling, foot pain, foot stiffness, foot swelling, hand pain, hand stiffness, hand swelling, hip pain, hip stiffness, hip swelling, knee pain, knee stiffness, knee swelling, shoulder pain, shoulder stiffness, shoulder swelling, wrist pain, wrist stiffness, wrist swelling Integumentary: Reports as per HPI Neurological: Reports as per HPI (Dizzy), Reports gait dysfunction, Reports headaches Endocrine: Reports as per HPI Hematologic/Lymphatic: Reports as per HPI Allergic/Immunologic: Reports as per HPI Past Medical History Past Medical History: COPD, Deep Vein Thrombosis (DVT), GERD/Reflux, Hypertension, Myocardial Infarction ([place]), Pneumonia, Vascular Disorder Additional Past Medical History / Comment(s): Previous history of gastric bypass surgery for obesity, remote history of a right lower extremity DVT 1996, peripheral vascular disease with previous angioplasty, restless leg syndrome, iron deficiency, COPD, Last Myocardial Infarction Date:: 10/2014 History of Any Multi-Drug Resistant Organisms: MRSA Date of last positivie culture/infection: 2000 MDRO Source:: abdominal wound Past Surgical History: Appendectomy, Bariatric Surgery, Breast Surgery, Cholecystectomy, Heart Catheterization, Hysterectomy, Orthopedic Surgery Additional Past Surgical History / Comment(s): Gastric bypass and subsequent multiple surgeries d/t incision did not heal properly and bowel was nicked, exploratory laparotomies, bilateral fem/pop bypass/stents, recent L wrist fracture with sx/hardware, bilateral feet bunionectomies, L rotator cuff repair, L knee arthroscopy, L breast benign bx, EGD, colonoscopies/benign polypectomy, right collar bone, Past Anesthesia/Blood Transfusion Reactions: No Reported Reaction Past Psychological History: Anxiety, Panic Disorder Smoking Status: Former smoker Past Alcohol Use History: Occasional Past Drug Use History: None Reported - Past Family History Father Family Medical History: CVA/TIA, Pneumonia Additional Family Medical History / Comment(s): STROKE AT AGE 50. Father of pne at the age of 63 yrs. Mother Family Medical History: No Reported History Additional Family Medical History / Comment(s): Mother is healthy and 83 yrs old. Medications and Allergies Home Medications Medication Instructions Recorded Confirmed Type Metoprolol Succinate (ER) [Toprol 25 mg PO DAILY 09/25/17 09/10/22 History XL] estradioL [Estrace] 0.5 mg PO DAILY 09/25/17 09/10/22 History Sertraline [Zoloft] 150 mg PO DAILY #30 tab 02/13/20 09/10/22 Rx ALPRAZolam [Xanax] 1 mg PO DAILY 08/07/20 09/10/22 History ARIPiprazole 5 mg PO DAILY 08/07/20 09/10/22 History Temazepam 30 mg PO HS 07/08/21 09/10/22 History Atorvastatin [Lipitor] 10 mg PO DAILY 09/10/22 09/10/22 History rOPINIRole HCL [Requip] 2 mg PO HS 09/10/22 09/10/22 History Allergies Allergy/AdvReac Type Severity Reaction Status Date / Time No Known Allergies Allergy Verified 09/10/22 23:03 Physical Exam Vitals: Vital Signs Temp Pulse Pulse Resp BP BP Pulse Ox 09/11/22 09:00 55 L 21 151/60 94 L 09/11/22 08:00 98.1 F 54 L 15 137/58 96 09/11/22 07:40 93 L 09/11/22 07:30 47 L 28 H 153/63 96 09/11/22 07:00 58 L 21 145/64 97 09/11/22 06:30 50 L 15 129/48 95 09/11/22 06:00 48 L 22 120/46 95 09/11/22 05:30 47 L 18 111/55 95 09/11/22 05:00 45 L 13 120/50 95 09/11/22 04:30 48 L 15 145/92 92 L 09/11/22 04:00 97.8 F 55 L 18 133/73 95 09/11/22 03:30 45 L 18 116/61 93 L 09/11/22 03:00 45 L 13 114/58 95 09/11/22 02:30 48 L 16 108/64 93 L 09/11/22 02:00 60 22 156/85 93 L 09/11/22 01:30 53 L 17 115/65 96 09/11/22 01:00 47 L 16 118/57 93 L 09/11/22 00:30 48 L 19 117/93 93 L 09/11/22 00:00 97.8 F 49 L 18 144/60 95 09/10/22 23:44 58 L 16 131/57 95 09/10/22 23:30 60 18 131/57 95 09/10/22 23:15 59 L 28 H 97/77 93 L 09/10/22 23:00 50 L 14 109/62 93 L 09/10/22 22:45 52 L 27 H 98/42 91 L 09/10/22 22:30 55 L 28 H 116/41 94 L 09/10/22 22:15 55 L 13 136/46 94 L 09/10/22 22:00 60 20 158/69 96 09/10/22 21:45 55 L 21 161/73 96 09/10/22 21:30 61 16 207/80 97 09/10/22 21:15 98.1 F 58 L 13 200/93 99 09/10/22 21:02 98.1 F 63 18 200/93 96 09/10/22 20:38 56 L 16 131/67 96 09/10/22 16:32 53 L 16 115/81 96 09/10/22 14:51 82 16 175/130 99 09/10/22 12:54 48 L 18 204/99 97 09/10/22 11:30 42 L 16 145/68 99 09/10/22 10:38 20 09/10/22 10:28 97.7 F 52 L 18 180/77 96 Intake and Output 09/10/22 09/11/22 09/11/22 22:59 06:59 14:59 Intake Total 1000 0 Balance 1000 0 Intake: IV 1000 0 Sodium Chloride 0.9% 500 1000 0 ml 500 ml @ 999 mls/hr IV .Q31M ONE Rx#:[id number] Other: Voiding Method Toilet Bedside Commode Toilet Bedside Commode # Voids 0 0 1 # Bowel Movements 1 1 Weight 89.9 kg The patient appeared well nourished and normally developed. Vital signs as documented. Head exam is unremarkable. No scleral icterus or corneal arcus noted. Neck is without jugular venous distension, thyromegaly, or carotid bruits. Carotid upstrokes are brisk bilaterally. Lungs are clear to auscultation and percussion. Cardiac exam reveals the PMI to be normally sized and situated. Rhythm is regular. First and second heart sounds normal. No murmurs, rubs or gallops. Abdominal exam reveals normal bowel sounds, no masses, no organomegaly and no aortic enlargement. Extremities are nonedematous and both femoral and pedal pulses are normal. NEUROLOGICAL: Higher mental function: The patient is awake, alert, oriented to self, place and time. Patient is following commands. No aphasia and no neglect. Cranial nerves: The pupils are round, equal and reactive to light and accommodation. Visual valadez was inconclusive but appears bilateral upper field cut bilaterally. Extraocular movement is intact no nystagmus is noted. Facial sensation is normal to touch throughout. The facial strength is normal throughout. Hearing is normal bilaterally to hand rub. Tongue is midline and moved [id number] without any difficulty. No dysarthria is noted. Shoulder shrug is normal bilaterally. Motor: The strength is 5 over 5 throughout. Normal tone and bulk. Cerebellum: Normal finger to nose bilaterally. Sensation: Sensation is normal to touch throughout. Reflexes (right/left): 3+ over the brachioradialis bilaterally. Otherwise 2+ throughout. Plantars are mute bilaterally. Results - Laboratory Findings CBC and BMP: 09/11/22 07:28 09/11/22 07:28 PT/INR, D-dimer PT 10.0 sec (9.0-12.0) 09/10/22 10:51 INR 0.9 (<1.2) 09/10/22 10:51 Abnormal lab findings: Abnormal Labs 09/10/22 09/10/22 09/10/22 10:51 10:51 10:51 WBC Plt Count 112 L Lymphocytes # Glucose 105 H Calcium Alkaline Phosphatase 130 H Cholesterol 210.00 H HDL Cholesterol 74.00 H Ur Specific [place] Urine Protein Urine Ketones 09/10/22 09/11/22 09/11/22 14:59 07:28 07:28 WBC 3.2 L Plt Count 105 L Lymphocytes # 0.8 L Glucose Calcium 8.2 L Alkaline Phosphatase Cholesterol HDL Cholesterol Ur Specific G[place]man >1.050 H Urine Protein Trace H Urine Ketones Trace H Assessment and Plan Plan: Acute right cerebellar stroke, patient was outside the window for thrombolytics and the patient is being managed conservatively. CT angiogram showing bilateral carotid artery disease worse on the left with 70% stenosis on the left and 60% on the right. Cardiac rhythm is sinus. Blood pressure was elevated at the time of admission, currently under better control. Bilaterally carotid artery disease Remote history of DVT, 1996, currently on no anticoagulants Previous history of gastric bypass surgery for obesity Previous history of postoperative myocardial infarction, no cardiac intervention with stenting COPD History of restless leg syndrome History of iron deficiency anemia History of acid reflux History of peripheral vascular disease Hypertension Chronic anxiety/panic Plan Blood pressures under better control. Avoid antihypertensive medication and avoid and massive drop in the blood pressure May need to do a 24-hour follow-up CAT scan of the brain Continue aspirin and [place] Monitor cardiac rhythm Check fasting lipid profile Start the patient on high-dose statins 80 mg by mouth daily Resume her Requip and Zoloft both of those medications were being given on an outpatient basis Echocardiogram Monitor cardiac rhythm Neurologic consultation We'll continue to follow
--- NOTE | 2022-09-11 09:24 | US ---
EXAMINATION TYPE: US carotid duplex BILAT DATE OF EXAM: 09/11/2022 COMPARISON: NONE CLINICAL HISTORY: carotid stenosis. dizziness. CVA TECHNIQUE: Carotid duplex ultrasound examination. Indirect Doppler criteria was utilized. FINDINGS: EXAM MEASUREMENTS: RIGHT: Peak Systolic Velocity (PSV) cm/sec ----- Right CCA: 91.5 ----- Right ICA: 138.7 ----- Right ECA: 242.2 ICA/CCA ratio: 1.5 RIGHT: End Diastole cm/sec ----- Right CCA: 7.1 ----- Right ICA: 19.2 ----- Right ECA: 5.3 LEFT: Peak Systolic Velocity (PSV) cm/sec ----- Left CCA: 130.7 ----- Left ICA: 274.5 ----- Left ECA: 429.0 ICA/CCA ratio: 2.1 LEFT: End Diastole cm/sec ----- Left CCA: 12.8 ----- Left ICA: 32.0 ----- Left ECA: 0.0 VERTEBRALS (direction of flow): Right Vertebral: Antegrade Left Vertebral: Antegrade Rhythm: Normal CHEMICAL ECONOMIST NOTES: Moderate to severe plaque bilateral bifurcations. Increased velocities right ECA, mild right ICA, left ICA and left ECA IMPRESSION: Bilateral moderate to severe atherosclerotic plaque as discussed above with findings suggestive of a 50-69% stenosis proximal left ICA. Criteria for Assigning % of Stenosis / Diameter reduction (Estimation based on the indirect measurements of the internal carotid artery velocities (ICA PSV). 1. Normal (no stenosis)=ICA PSV < 125 cm/s: ratio < 2.0: ICA EDV<40 cm/s. 2. Less than 50% stenosis=ICA PSV < 125 cm/s: ratio < 2.0: ICA EDV<40 cm/s. 3. 50 to 69% stenosis=ICA PSV of 125 to 230 cm/s: ration 2.0 ? 4.0: ICA EDV 40-100 cm/s. 4. Greater than 70% stenosis to near occlusion= ICA PSV > 230 cm/s: ratio > 4.0: ICA EDV > 100 cm/s. 5. Near occlusion= ICA PSV velocities may be low or undetectable: variable ratio and ICA EDV. 6. Total occlusion=unable to detect flow.
[2022-09-11] MEDS: SERTRALINE 50 MG TAB PO SCH (11:03)
--- NOTE | 2022-09-11 12:11 | P.GSCN ---
History of Present Illness Consult date: 09/11/22 Reason for Consult: Carotid stenosis Requesting physician: Walker Rahman History of present illness: This is a pleasant 67-year-old female with a past medical history of peripheral arterial disease status post angioplasty in 1996, COPD, DVT, hypertension, hyperlipidemia, myocardial infarction, iron deficiency anemia, former smoker, and previous gastric bypass surgery who presented to the emergency department with complaints of dizziness for the past 5 days. Patient states she was dizzy and felt like she was spinning in the room was spinning and was associated with nausea and vomiting. She still denies any association with position change or movement. She denied any other associated focal deficits such as vision change or loss, speech difficulty, extremity weakness, or memory impairment. She denies any previous history of CVA or TIA. She had a MRI of the brain that showed a large subacute infarct in the right inferior cerebellar hemisphere and probably a small acute lacunar infarct in the right occipital lobe. She was hypertensive on admission and was admitted to the ICU for further blood pressure management. Neurology was consulted she had further workup with a CT angiogram of the head and neck and carotid duplex reporting greater than 70% left ICA stenosis. Vascular surgery was consulted for the above. Patient was started on aspirin 81 mg, Brilinta 90 mg twice a day and Lipitor 80 mg daily. She currently denies any focal deficits other than dizziness. She states it is intermittent. She is denying any recent fevers chills, illnesses denies any shortness of breath chest pain abdominal pain does have some nausea associated with the dizziness. Denies any headaches, vision changes, speech difficulties, or weakness. Imaging: Carotid duplex: Bilateral moderate to severe arthrosclerotic plaque, 50-69% stenosis proximal left ICA. Right ICA PSV 138.7, ICA/CCA ratio 1.5 left ICA PSV to 74.5, ICA/CCA ratio 2.1 CT angiogram head and neck: Extensive arthrosclerotic plaque at the left carotid system with greater than 70% left carotid bifurcation stenosis suspected. Approximately 50-60% stenosis suspected on the right. Correlate with dedicated arteriogram is clinically warranted. Vertebrobasilar system is diminutive in size but enhances. Correlate for vertebrobasilar insufficiency. Right superior cerebellar artery appears to be markedly diminutive in size. The inferior cerebellar artery is not well seen and therefore could not exclude a stenosis or thrombosis. Correlate with MRI clinically warranted. Brain MRI: Large subacute infarct in the right inferior cerebellar hemisphere is a change compared to old exam. Probably small acute lacunar infarcts in the right occipital lobe. CT brain C-spine without contrast: New 3.8 cm hypodensity inferior medial right cerebellar hemisphere. This is very slight mass effect on the fourth ventricle. No hydrocephalus or midline shift. No hemorrhagic transformation. An acute to subacute infarct suggested Review of Systems A 14 point review systems was completed all pertinent positives and negatives as stated in the HPI. Past Medical History Past Medical History: COPD, Deep Vein Thrombosis (DVT), GERD/Reflux, Hypertensio n, Myocardial Infarction (ME), Pneumonia, Vascular Disorder Additional Past Medical History / Comment(s): Previous history of gastric bypass surgery for obesity, remote history of a right lower extremity DVT 1996, peripheral vascular disease with previous angioplasty, restless leg syndrome, iron deficiency, COPD, Last Myocardial Infarction Date:: 10/2014 History of Any Multi-Drug Resistant Organisms: MRSA Year Discovered:: 2000 MDRO Source:: abdominal wound Past Surgical History: Appendectomy, Bariatric Surgery, Breast Surgery, Cholecystectomy, Heart Catheterization, Hysterectomy, Orthopedic Surgery Additional Past Surgical History / Comment(s): Gastric bypass and subsequent multiple surgeries d/t incision did not heal properly and bowel was nicked, exploratory laparotomies, bilateral fem/pop bypass/stents, recent L wrist fracture with sx/hardware, bilateral feet bunionectomies, L rotator cuff repair, L knee arthroscopy, L breast benign bx, EGD, colonoscopies/benign polypectomy, right collar bone, Past Anesthesia/Blood Transfusion Reactions: No Reported Reaction Past Psychological History: Anxiety, Panic Disorder Smoking Status: Former smoker Past Alcohol Use History: Occasional Past Drug Use History: None Reported - Past Family History Father Family Medical History: CVA/TIA, Pneumonia Additional Family Medical History / Comment(s): STROKE AT AGE 50. Father of pne at the age of 63 yrs. Mother Family Medical History: No Reported History Additional Family Medical History / Comment(s): Mother is healthy and 83 yrs old. Medications and Allergies Home Medications Medication Instructions Recorded Confirmed Type Metoprolol Succinate (ER) [Toprol 25 mg PO DAILY 09/25/17 09/10/22 History XL] estradioL [Estrace] 0.5 mg PO DAILY 09/25/17 09/10/22 History Sertraline [Zoloft] 150 mg PO DAILY #30 tab 02/13/20 09/10/22 Rx ALPRAZolam [Xanax] 1 mg PO DAILY 08/07/20 09/10/22 History ARIPiprazole 5 mg PO DAILY 08/07/20 09/10/22 History Temazepam 30 mg PO HS 07/08/21 09/10/22 History Atorvastatin [Lipitor] 10 mg PO DAILY 09/10/22 09/10/22 History rOPINIRole HCL [Requip] 2 mg PO HS 09/10/22 09/10/22 History Allergies Allergy/AdvReac Type Severity Reaction Status Date / Time No Known Allergies Allergy Verified 09/10/22 23:03 Surgical - Exam Vital Signs Temp Pulse Resp BP Pulse Ox 97.7 F 52 L 18 180/77 96 09/10/22 10:28 09/10/22 10:28 09/10/22 10:28 09/10/22 10:09/10/22 10:28 General appearance: The patient is alert, oriented, appears in no acute distress. HET: Head is normocephalic and atraumatic. Pupils are equal and reactive. Neck: Supple. Trachea midline. No audible carotid bruit. Heart: S1 S2. Regular rate and rhythm. Lungs: Clear to auscultation bilaterally. Abdomen: Soft, nontender, nondistended. Extremities: Normal skin color and turgor. No cyanosis, rash, ulceration, clubbing, or edema. Radial and pedal pulses are 2/4 bilaterally. Neurological: No focal deficits. Strength and sensation are grossly intact. Results - Labs 09/11/22 07:28 09/11/22 07:28 Abnormal Lab Results - Last 24 Hours (Table) 09/10/22 09/10/22 09/10/22 Range/Units 10:51 10:51 10:51 WBC (3.8-10.6) k/uL Plt Count 112 L (150-450) k/uL Lymphocytes # (1.0-4.8) k/uL Glucose 105 H (74-99) mg/dL Calcium (8.4-10.2) mg/dL Alkaline Phosphatase 130 H (38-126) U/L Cholesterol 210.00 H (0.00-200.00) mg/dL HDL Cholesterol 74.00 H (40.00-60.00) mg/dL Ur Specific [place] (1.001-1.035) Urine Protein (Negative) Urine Ketones (Negative) 09/10/22 09/11/22 09/11/22 Range/Units 14:59 07:28 07:28 WBC 3.2 L (3.8-10.6) k/uL Plt Count 105 L (150-450) k/uL Lymphocytes # 0.8 L (1.0-4.8) k/uL Glucose (74-99) mg/dL Calcium 8.2 L (8.4-10.2) mg/dL Alkaline Phosphatase (38-126) U/L Cholesterol (0.00-200.00) mg/dL HDL Cholesterol (40.00-60.00) mg/dL Ur Specific [place] >1.050 H (1.001-1.035) Urine Protein Trace H (Negative) Urine Ketones Trace H (Negative) Diabetes panel 09/10/22 09/10/22 09/11/22 Range/Units 10:51 10:51 07:28 Sodium 139 138 (137-145) mmol/L Potassium 4.0 4.0 (3.5-5.1) mmol/L Chloride 101 106 (98-107) mmol/L Carbon Dioxide 29 27 (22-30) mmol/L BUN 14 13 (7-17) mg/dL Creatinine 1.02 0.97 (0.52-1.04) mg/dL Glucose 105 H 98 (74-99) mg/dL Calcium 9.3 8.2 L (8.4-10.2) mg/dL AST 31 (14-36) U/L ALT 31 (4-34) U/L Alkaline Phosphatase 130 H (38-126) U/L Total Protein 6.8 (6.3-8.2) g/dL Albumin 4.4 (3.5-5.0) g/dL Triglycerides 91.20 (0.00-149.00) mg/dL HDL Cholesterol 74.00 H (40.00-60.00) mg/dL Calcium panel 09/10/22 09/11/22 Range/Units 10:51 07:28 Calcium 9.3 8.2 L (8.4-10.2) mg/dL Albumin 4.4 (3.5-5.0) g/dL Pituitary panel 09/10/22 09/11/22 Range/Units 10:51 07:28 Sodium 139 138 (137-145) mmol/L Potassium 4.0 4.0 (3.5-5.1) mmol/L Chloride 101 106 (98-107) mmol/L Carbon Dioxide 29 27 (22-30) mmol/L BUN 14 13 (7-17) mg/dL Creatinine 1.02 0.97 (0.52-1.04) mg/dL Glucose 105 H 98 (74-99) mg/dL Calcium 9.3 8.2 L (8.4-10.2) mg/dL Adrenal panel 09/10/22 10 Range/Units 10:51 07:28 Sodium 139 138 (137-145) mmol/L Potassium 4.0 4.0 (3.5-5.1) mmol/L Chloride 101 106 (98-107) mmol/L Carbon Dioxide 29 27 (22-30) mmol/L BUN 14 13 (7-17) mg/dL Creatinine 1.02 0.97 (0.52-1.04) mg/dL Glucose 105 H 98 (74-99) mg/dL Calcium 9.3 8.2 L (8.4-10.2) mg/dL Total Bilirubin 0.6 (0.2-1.3) mg/dL AST 31 (14-36) U/L ALT 31 (4-34) U/L Alkaline Phosphatase 130 H (38-126) U/L Total Protein 6.8 (6.3-8.2) g/dL Albumin 4.4 (3.5-5.0) g/dL Assessment and Plan Assessment: 1. 70% left ICA stenosis, 50-60% stenosis right per CT angiogram 2. Subacute stroke of her right cerebellar with mild mass effect on fourth ventricle, small acute lacunar infarcts in the right occipital lobe 3. Dizziness 4. Hypertension 5. Hyperlipidemia 6. Former smoker Plan: 1. Continue symptomatic supportive care 2. Agree with aspirin, brilinta and Lipitor 3. No indication at this time for any vascular surgical intervention 4. Continue with recommendations from neurology 5. Discussed with patient follow-up with vascular surgery outpatient setting in 2 weeks Thank you for this consultation, we'll continue to follow. The impression and plan of care has been dictated as directed. Dr. Tovar I performed a history and examination of this patient, discussed the same with the dictator. I agree with the dictator's note ,documented as a scribe. Any additional findings or plans will be noted.
[2022-09-11] MEDS ORDERED: MECLIZINE 25 MG TAB PO PRN (13:16)
--- NOTE | 2022-09-11 13:22 | P.PN ---
Subjective Progress Note Date: 09/11/22 The patient is seen at bedside and feels drastically better today. She continues to have dizziness but feels medications is controlling it. Denies any further visual disturbance. Denies any focal weakness, numbness or difficulty getting her words out. Has unsteady walking. Of note, yesterday she had CTA head and neck and it reported as extensive atherosclerotic plaque at the left carotid system with a greater than 70% left carotid bificurcation stenosis suspected. Approximately 50-60% stenosis s uspected on the right. Correlated with dedicated arteriogram as clinically warranted. Vertebral basilar system is diminutive in size but enhances. Correlate for vertebrobasilar insufficiency. Right superior cerebellar artery appears to e markedly diminutive in size. The inferior cerebellar artery is not well seen and therefore, could not exclude a stenosis or thrombosis. ED physician (Dr. Ayala) spoke with interventional radiologist (Dr. Ashford) and it was recommend for patient to continue in our facility for continued management and no transfer needed. Objective - Vital Signs Vital signs: Vital Signs Temp 98.1 F 09/11/22 08:00 Pulse 50 L 09/11/22 12:00 Resp 65 H 09/11/22 12:00 BP 112/94 09/11/22 12:00 Pulse Ox 97 09/11/22 12:00 FiO2 Intake & Output 09/10/22 09/11/22 09/11/22 18:59 06:59 18:59 Intake Total 1000 0 Balance 1000 0 Weight 87.09 kg 89.9 kg Intake: IV 1000 0 Sodium Chloride 0.9% 500 1000 0 ml 500 ml @ 999 mls/hr IV .Q31M ONE Rx#:[id number] Other: Voiding Method Bedside Commode Toilet Bedside Commode # Voids 0 1 # Bowel Movements 1 1 - Exam GENERAL: The patient is sitting in a recliner chair near bedside and having her lunch and is not in acute distress. NEUROLOGICAL: Higher mental function: The patient is awake, alert, oriented to self, place and time. Patient is following commands. No aphasia and no neglect. Cranial nerves: The pupils are round, equal and reactive to light. Visual valadez is normal throughout. Extraocular movement is intact no nystagmus is noted. Facial sensation is normal to touch throughout. The facial strength is normal throughout. Tongue is midline and moved [id number] without any difficulty. No dysarthria is noted. Shoulder shrug is normal bilaterally. Motor: The strength is 5 over 5 throughout. Normal tone and bulk. Cerebellum: Normal finger to nose and heel to resendiz bilaterally . Sensation: Sensation is normal to touch throughout. Reflexes (right/left): 3+ over the brachioradialis bilaterally. Otherwise 2+ throughout. Plantars are mute bilaterally. Some other workup during this ED visit consisted of: Lipid panel: T, Cholestrol 210, LDL 117 and HDL 74 Maciel virus PCR was not detected. CT of the head is reported as new 3. centimeter hypodensity inferior medial right cerebellar hemisphere. This is very slight mass effect on the fourth ventricle. No hydrocephalus or midline shift. No hemorrhagic transformation. An acute to subacute infarct is suggested greater than 6 hours in duration given the degree of hypodensity. Mild to moderate spondylitic changes in the cervical spine. No acute fracture or malalignment. I personally reviewed the CT of the head and I agree with the report. CTA head and neck and it reported as extensive atherosclerotic plaque at the left carotid system with a greater than 70% left carotid bificurcation stenosis suspected. Approximately 50-60% stenosis suspected on the right. Correlated with dedicated arteriogram as clinically warranted. Vertebral basilar system is diminutive in size but enhances. Correlate for vertebrobasilar insufficiency. Right superior cerebellar artery appears to e markedly diminutive in size. The inferior cerebellar artery is not well seen and therefore, could not exclude a stenosis or thrombosis. MRI Brain w/ and w/o is reported as Large subacute infarct in the right inferior cerebellar hemisphere is a chnge compared to old exam. There is probably a samll acute lacunar infarcts in the right occipital lobe. Carotid Duplex is reported as bilateral moderate to severe atherosclortic plaques suggestive of 50-69% stenosis proximal left ICA. - Labs CBC & Chem 7: 09/11/22 07:28 09/11/22 07:28 Labs: Abnormal Lab Results - Last 24 Hours (Table) 09/10/22 09/10/22 09/11/22 Range/Units 10:51 14:59 07:28 WBC 3.2 L (3.8-10.6) k/uL Plt Count 105 L (150-450) k/uL Lymphocytes # 0.8 L (1.0-4.8) k/uL Calcium (8.4-10.2) mg/dL Cholesterol 210.00 H (0.00-200.00) mg/dL HDL Cholesterol 74.00 H (40.00-60.00) mg/dL Ur Specific [place] >1.050 H (1.001-1.035) Urine Protein Trace H (Negative) Urine Ketones Trace H (Negative) 09/11/22 Range/Units 07:28 WBC (3.8-10.6) k/uL Plt Count (150-450) k/uL Lymphocytes # (1.0-4.8) k/uL Calcium 8.2 L (8.4-10.2) mg/dL Cholesterol (0.00-200.00) mg/dL HDL Cholesterol (40.00-60.00) mg/dL Ur Specific [place] (1.001-1.035) Urine Protein (Negative) Urine Ketones (Negative) Assessment and Plan Assessment: * Subacute large stroke over the right cerebellar and small focus over the right occipital. (presented with Dizziness for the past 5 days with tinnitus nausea, transient episode of vomiting and unsteady gait). Stroke seems embolic in nature. Usually the internal carotid causes more anterior circulat ion > posterior circulation. * His mild mass effect over 4th ventricle seen on CT head is likely result of cytotoxic edema from large ischemic stroke * Carotid stenosis (left 70% and right 50-69%) on CTA but on duplex it is reported as left is 50-69% left ICA * Vertebral basilar system is diminutive in size, right superior cerebellar artery appears to e markedly diminutive in size. The inferior cerebellar artery is not well seen on CTA * Hypertension * History of right carotid stenosis about 69% * History of myocardial infarction * History of gastric bypass Plan: * Continue ASA 81mg and Brilinta 90mg 1 tab bid (both new during this hospital visit). Continue Lipitor 80mg qhs for secondary stroke prophylaxis. * Consulted vascular surgery team for carotid stenosis. * Pending 2D echo and I consulted cardiology team for CHRISTOPHER. * Recommend systolic blood pressure goal 120-160. Will defer hypertension management to primary team. * CTA head and neck and it reported as extensive atherosclerotic plaque at the left carotid system with a greater than 70% left carotid bificurcation stenosis suspected. Approximately 50-60% stenosis suspected on the right. Correlated with dedicated arteriogram as clinically warranted. Vertebral basilar system is diminutive in size but enhances. Correlate for vertebrobasilar insufficiency. Right superior cerebellar artery appears to e markedly diminutive in size. The inferior cerebellar artery is not well seen and therefore, could not exclude a stenosis or thrombosis. Dr. Ashford (interventional neurologist) recommend patient to continue to be observed in our facility for medical management. BUT IF PATIENT HAS ANY WORSENING OF CONDITION THEN PLEASE NOTIFY OUR TEAM BANDAR AND RECOMMEND REPEAT CT HEAD, CTA HEAD AND NECK AND WILL CONSIDER NOTIFYING INTERVENTIONAL NEUROLOGY TEAM AGAIN. * Will have the patient to follow-up with Dr. Ashford (Interventional neurologist) as outpatient. * Continue neuro checks * Cardiac monitoring * PT, OT and [employer] SCIENCE TECHNICAL OFFICER are consulted * * Will defer the rest of medical management to the primary team. * For DVT prophylaxis: On subq heparin 5000U every 8 hours. The plan is discussed with patient and primary team (N.P.). Walker Rahman M.D. Neuro-Hospitalist. Time with Patient: Less than 30
--- NOTE | 2022-09-11 14:16 | P.HPIM ---
History of Present Illness H&P Date: 09/11/22 This is a 67 year old female with medical history of COPD, DVT, GERD, hypertension, gastric bypass, peripheral vascular disease with bilateral femoral artery bypass 10 years ago. Reports history of 2 heart attacks that she states were "NSTEMI's" and managed with medications. Patient also with anxiety, depression, former smoker states she quit 10 years ago. Patient follows with Dr. Roblero and also with Dr Howard with vascular services regularly. No personal history of stroke, diabetes or atrial fibrillation. States she has strong family history of stroke, and diabetes. Her father had a massive stroke in his early 50s. Patient reports to the emergency room with 5 day history of dizziness, with nausea and vomiting. Patient states that on Thursday she was out sun tanning and came in to the house. Reports passing out and does not remember the incident. When she came too, she had significant dizziness, lighthededness and vertigo and had issues with balance. She initially reports tinnitus which she states has currently resolved. Patient denies focal weakness, vision changes, difficulty with speech, or difficulty with swallowing. She does have dull headache mostly frontal/behind her eyes. Patient reports being exposed to covid 1 week ago and thought she had covid which is why she waited before coming to the ER. She has basically been laying in bed since the initial incident without improvement in symptoms. Also, states that she has missed several days of her home medications. Reports dizziness, vertigo, weakness currently. Nausea and vomiting have improved. Dizziness and lightheadedness being managed with medications. No shortness of breath, chest pain, fever, or chills. Patient had head cervical spine CT completed on admission showing new 3.8 cm hypodensity inferior medial right cerebellar hemisphere with slight mass effect on the fourth ventricle. No hydrocephalus or hemorrhagic transformation. Acute to subacute infarct suspected. Moderate to severe right and moderate left neuroforaminal stenosis at the level of C5 to C6. Abdomen Pelvis CT also done showing indeterminate right adrenal mass too small to characterize which is unchanged from previous, splenomegaly. Patient was admitted to intensive care unit for close monitoring and neurology was consulted. Additional diagnostics completed include; CT angiography showing greater than 70% left carotid bifurcation stenosis, 50 to 60% stenosis suspected on the right. Possible vertebrobasilar insufficiency. Unable to exclude stenosis or thrombosis inferior cerebellar artery. Follow up brain MRI is showing large subacute infarct in the right inferior cerebellar hemisphere is a change compared to old exam. Also mentions small acute lacunar infarct right occipital lobe. Carotid doppler showing Bilateral moderate to severe atherosclerotic plaque as discussed with suggestive 50 to 69% proximal left ICA stenosis. Patient presented with blood pressure in the 200s systolic and was resumed on home dose toprol which has been discontinued currently now sinus bradycardic in the 50s. Blood pressure in the 130s systolic. Patient has been started on aspirin brilenta combination as well as high dose lipitor. REVIEW OF SYSTEMS: CONSTITUTIONAL: No fever, no malaise, no fatigue. HEENT: No recent visual problems or hearing problems. Denied any sore throat. CARDIOVASCULAR: No chest pain, orthopnea, PND, no palpitations, no syncope. PULMONARY: No shortness of breath, no cough, no hemoptysis. GASTROINTESTINAL: No diarrhea, no nausea, no vomiting, no abdominal pain. NEUROLOGICAL: Reports dizziness, lightheadeness, balance issues, headache. HEMATOLOGICAL: Denies any bleeding or petechiae. GENITOURINARY: Denies any burning micturition, frequency, or urgency. MUSCULOSKELETAL/RHEUMATOLOGICAL: Denies any joint pain, swelling, or any muscle pain. ENDOCRINE: Denies any polyuria or polydipsia. The rest of the 14-point review of systems is negative. PHYSICAL EXAMINATION: GENERAL: The patient is alert and oriented x3, not in any acute distress. Well developed, well nourished. HEENT: Pupils are round and equally reacting to light. EOMI. No scleral icterus. No conjunctival pallor. Normocephalic, atraumatic. No pharyngeal erythema. No thyromegaly. CARDIOVASCULAR: S1 and S2 present. No murmurs, rubs, or gallops. Bradycardic PULMONARY: Chest is clear to auscultation, no wheezing or crackles. ABDOMEN: Soft, nontender, nondistended, normoactive bowel sounds. No palpable organomegaly. MUSCULOSKELETAL: No joint swelling or deformity. EXTREMITIES: No cyanosis, clubbing, or pedal edema. NEUROLOGICAL: Gross neurological examination did not reveal any focal deficits. Equal strength bilaterally. SKIN: No rashes. Assessment and Plan Assessment Dizziness, lightheadeness, vertigo Subacute stroke right inferior cerebellar hemisphere possible embolic, currently under investigation Moderate stenosis carotid arteries History Hypertension Dyslipidemia History myocardial infarction History of DVT in 1996 not currently on anticoagulation History of COPD Peripheral vascular disease with previous femoral bypass bilaterally Gastroesophageal reflux disease History of gastric bypass surgery Anxiety/Panic disorder Obesity Former Smoker GI Prophylaxis DVT Prophylaxis Full Code Plan Neurology consultation Patient has been down graded from intensive care unit Continue neuro checks and close monitoring PT/OT have evaluated the patient Recommend holding off on blood pressure medications/ Toprol for now Cardiology has been consulted for CHRISTOPHER Echocardiogram pending at this time Patient has been started on aspirin, brilenta, lipitor The impression and plan of care has been dictated by Yovana Stapleton, Nurse Practitioner as directed. Dr. Luisa MD I have performed a history and physical examination and medical decision making of this patient, discussed the same with the dictator, and agree with the dictators assessment and plan as written, documented as a scribe. Based on total visit time, I have performed more than 50% of this visit. Past Medical History Past Medical History: COPD, Deep Vein Thrombosis (DVT), GERD/Reflux, Hypertension, Myocardial Infarction ([place]), Pneumonia, Vascular Disorder Additional Past Medical History / Comment(s): Previous history of gastric bypass surgery for obesity, remote history of a right lower extremity DVT 1996, peripheral vascular disease with previous angioplasty, restless leg syndrome, iron deficiency, COPD, Last Myocardial Infarction Date:: 10/2014 History of Any Multi-Drug Resistant Organisms: MRSA Date of last positivie culture/infection: 2000 MDRO Source:: abdominal wound Past Surgical History: Appendectomy, Bariatric Surgery, Breast Surgery, Cholecystectomy, Heart Catheterization, Hysterectomy, Orthopedic Surgery Additional Past Surgical History / Comment(s): Gastric bypass and subsequent multiple surgeries d/t incision did not heal properly and bowel was nicked, exp loratory laparotomies, bilateral fem/pop bypass/stents, recent L wrist fracture with sx/hardware, bilateral feet bunionectomies, L rotator cuff repair, L knee arthroscopy, L breast benign bx, EGD, colonoscopies/benign polypectomy, right collar bone, Past Anesthesia/Blood Transfusion Reactions: No Reported Reaction Past Psychological History: Anxiety, Panic Disorder Smoking Status: Former smoker Past Alcohol Use History: Occasional Past Drug Use History: None Reported - Past Family History Father Family Medical History: CVA/TIA, Pneumonia Additional Family Medical History / Comment(s): STROKE AT AGE 50. Father of pne at the age of 63 yrs. Mother Family Medical History: No Reported History Additional Family Medical History / Comment(s): Mother is healthy and 83 yrs old. Medications and Allergies Home Medications Medication Instructions Recorded Confirmed Type Metoprolol Succinate (ER) [Toprol 25 mg PO DAILY 09/25/17 09/10/22 History XL] estradioL [Estrace] 0.5 mg PO DAILY 09/25/17 09/10/22 History Sertraline [Zoloft] 150 mg PO DAILY #30 tab 02/13/20 09/10/22 Rx ALPRAZolam [Xanax] 1 mg PO DAILY 08/07/20 09/10/22 History ARIPiprazole 5 mg PO DAILY 08/07/20 09/10/22 History Temazepam 30 mg PO HS 07/08/21 09/10/22 History Atorvastatin [Lipitor] 10 mg PO DAILY 09/10/22 09/10/22 History rOPINIRole HCL [Requip] 2 mg PO HS 09/10/22 09/10/22 History Allergies Allergy/AdvReac Type Severity Reaction Status Date / Time No Known Allergies Allergy Verified 09/10/22 23:03 Physical Exam Vitals: Vital Signs Temp Pulse Pulse Resp BP BP Pulse Ox 09/11/22 09:00 55 L 21 151/60 94 L 09/11/22 08:00 98.1 F 54 L 15 137/58 96 09/11/22 07:40 93 L 09/11/22 07:30 47 L 28 H 153/63 96 09/11/22 07:00 58 L 21 145/64 97 09/11/22 06:30 50 L 15 129/48 95 09/11/22 06:00 48 L 22 120/46 95 09/11/22 05:30 47 L 18 111/55 95 09/11/22 05:00 45 L 13 120/50 95 09/11/22 04:30 48 L 15 145/92 92 L 09/11/22 04:00 97.8 F 55 L 18 133/73 95 09/11/22 03:30 45 L 18 116/61 93 L 09/11/22 03:00 45 L 13 114/58 95 09/11/22 02:30 48 L 16 108/64 93 L 09/11/22 02:00 60 22 156/85 93 L 09/11/22 01:30 53 L 17 115/65 96 09/11/22 01:00 47 L 16 118/57 93 L 09/11/22 00:30 48 L 19 117/93 93 L 09/11/22 00:00 97.8 F 49 L 18 144/60 95 09/10/22 23:44 58 L 16 131/57 95 09/10/22 23:30 60 18 131/57 95 09/10/22 23:15 59 L 28 H 97/77 93 L 09/10/22 23:00 50 L 14 109/62 93 L 09/10/22 22:45 52 L 27 H 98/42 91 L 09/10/22 22:30 55 L 28 H 116/41 94 L 09/10/22 22:15 55 L 13 136/46 94 L 09/10/22 22:00 60 20 158/69 96 09/10/22 21:45 55 L 21 161/73 96 09/10/22 21:30 61 16 207/80 97 09/10/22 21:15 98.1 F 58 L 13 200/93 99 09/10/22 21:02 98.1 F 63 18 200/93 96 09/10/22 20:38 56 L 16 131/67 96 09/10/22 16:32 53 L 16 115/81 96 09/10/22 14:51 82 16 175/130 99 09/10/22 12:54 48 L 18 204/99 97 09/10/22 11:30 42 L 16 145/68 99 09/10/22 10:38 20 09/10/22 10:28 97.7 F 52 L 18 180/77 96 Intake and Output 09/10/22 09/11/22 09/11/22 22:59 06:59 14:59 Intake Total 1000 0 Balance 1000 0 Intake: IV 1000 0 Sodium Chloride 0.9% 500 1000 0 ml 500 ml @ 999 mls/hr IV .Q31M ONE Rx#:[id number] Other: Voiding Method Toilet Bedside Commode Toilet Bedside Commode # Voids 0 0 1 # Bowel Movements 1 1 Weight 89.9 kg Results CBC & Chem 7: 09/11/22 07:28 09/11/22 07:28 Labs: Abnormal Lab Results - Last 24 Hours (Table) 09/10/22 09/10/22 09/10/22 Range/Units 10:51 10:51 10:51 WBC (3.8-10.6) k/uL Plt Count 112 L (150-450) k/uL Lymphocytes # (1.0-4.8) k/uL Glucose 105 H (74-99) mg/dL Calcium (8.4-10.2) mg/dL Alkaline Phosphatase 130 H (38-126) U/L Cholesterol 210.00 H (0.00-200.00) mg/dL HDL Cholesterol 74.00 H (40.00-60.00) mg/dL Ur Specific Talent (1.001-1.035) Urine Protein (Negative) Urine Ketones (Negative) 09/10/22 09/11/22 09/11/22 Range/Units 14:59 07:28 07:28 WBC 3.2 L (3.8-10.6) k/uL Plt Count 105 L (150-450) k/uL Lymphocytes # 0.8 L (1.0-4.8) k/uL Glucose (74-99) mg/dL Calcium 8.2 L (8.4-10.2) mg/dL Alkaline Phosphatase (38-126) U/L Cholesterol (0.00-200.00) mg/dL HDL Cholesterol (40.00-60.00) mg/dL Ur Specific Talent >1.050 H (1.001-1.035) Urine Protein Trace H (Negative) Urine Ketones Trace H (Negative) Thrombosis Risk Factor Assmnt - Choose All That Apply Each Factor Represents 1 point: Abnormal pulmonary function (COPD), Obesity (BMI >25) Each Risk Factor Represents 2 Points: Age 61-74 years Thrombosis Risk Factor Assessment Total Risk Factor Score: 4 Thrombosis Risk Factor Assessment Level: Moderate Risk Assessment and Plan Time with Patient: Greater than 30
[2022-09-11] MEDS: ATORVASTATIN 80 MG TAB PO SCH (21:18)
[2022-09-11] MEDS ORDERED: TEMAZEPAM 15 MG CAP PO SCH (23:00)
[2022-09-12] MEDS ORDERED: fentaNYL (PF) 50 MCG/ML 2 ML AMP ONE (09:20)
--- NOTE | 2022-09-12 09:23 | P.CRDCN ---
History of Present Illness History of present illness: HISTORY OF PRESENT ILLNESS: This is a 67 year old female with a past medical history significant for hypertension, hyperlipidemia, mitral regurgitation, and former nicotine dependence. Patient follows in the office with Dr. Gil. We have been asked to see the patient in consultation for CHRISTOPHER. Patient examined at the bedside. Patient reports on Thursday she was at home. She walked to the bathroom and then passed out. She does not remember passing out. She states when she came to everything was spinning and she was dizzy. She states that she got her bearings and then went to lay down for awhile. She states over the next few days, the dizziness continued so she ended up coming to the emergency room because she thought she had Covid. Patient was found to have an acute/subacute CVA. Patient denies any weakness or numbness. Denies any palpitations. Telemetry reveals sinus bradycardia with a heart rate in the 40s. She is prescribed metoprolol succinate on an outpatient basis which is currently on hold. She has been evaluated by neurology. She is currently on aspirin and Brilinta. Her Lipitor dose was increased to 80 mg area. She reports she was just started on Lipitor about a month ago. Patient is a former smoker and states she stopped smoking 10 years ago. She states that her mom and her dad both have a history of a stroke. She reports her dad had a massive stroke at age 50 and her mom had a stroke at age 84. * EKG reveals sinus bradycardia with no signs of acute ischemia * Chest xray negative for acute process. * MRI of the brain revealed large subacute infarct in the right inferior cerebellar hemisphere. Probably a small acute lunar infarct and right occipital lobe * Laboratory data: WBC 3.2. Hemoglobin 13.0. Platelet count 105. Sodium 138. Potassium 4.0. BUN 13. Creatinine 0.97. Troponin negative 1. Cholesterol 210. LDL 117. * Current home cardiac medications include metoprolol succinate 25 mg daily and Lipitor 10 mg daily * Most recent echocardiogram obtained in August 2021 at the office revealed ejection fraction 55-60%, moderate to severe mitral regurgitation, and mild tricuspid regurgitation * Cardiac catheterization history: October 2015 revealing mild irregularities and RCA proximally. No significant CAD. * Patient underwent stress testing in the office in 2015 which was negative for ischemia REVIEW OF SYSTEMS: At the time of my exam: CONSTITUTIONAL: Denies fever or chills. HEENT: Denies blurred vision, vision changes, or eye pain. Denies hemoptysis CARDIOVASCULAR: Denies chest pain. Denies orthopnea. Denies PND. Denies palpitations RESPIRATORY: Denies shortness of breath. GASTROINTESTINAL: Denies abdominal pain. Denies nausea or vomiting. HEMATOLOGIC: Denies bleeding disorders. GENITOURINARY: Denies any blood in urine. SKIN: Denies pruitis. Denies rash. PHYSICAL EXAM: VITAL SIGNS: Reviewed. GENERAL: Well-developed in no acute distress. HEENT: Head is normocephalic. Pupils are equal, round. Sclerae anicteric. Mucous membranes of the mouth are moist. Neck supple. No JVD or thyromegaly LUNGS: Respirations even and unlabored. Lungs essentially clear to auscultation bilaterally. HEART: Regular rate and rhythm. S1 and S2 heard. + systolic murmur ABDOMEN: Soft. Nondistended. Nontender. EXTREMITIES: Normal range of motion. No clubbing or cyanosis. Peripheral pulses intact. No lower extremity edema NEUROLOGIC: Awake and alert. Oriented x 3. ASSESSMENT: Acute lacunar infarct of right occipital lobe Large subacute infarct in right inferior cerebellar hemisphere Hypertension Hyperlipidemia Moderate to severe mitral regurgitation Former nicotine dependence PLAN: Obtain 2D echo to assess cardiac structure and function Continue aspirin, brilinta, and lipitor Continue telemetry monitoring Patient to be discharged with 30 day event monitor at discharge Patient to undergo CHRISTOPHER today with Dr. Gil Further recommendations pending patient course Nurse practitioner note has been reviewed by physician. Signing provider agrees with the documented findings, assessment, and plan of care. Past Medical History Past Medical History: COPD, Deep Vein Thrombosis (DVT), GERD/Reflux, Hypertension, Myocardial Infarction ([place]), Pneumonia, Vascular Disorder Additional Past Medical History / Comment(s): Previous history of gastric bypass surgery for obesity, remote history of a right lower extremity DVT 1996, peripheral vascular disease with previous angioplasty, restless leg syndrome, iron deficiency, COPD, Last Myocardial Infarction Date:: 10/2014 History of Any Multi-Drug Resistant Organisms: MRSA Date of last positivie culture/infection: 2000 MDRO Source:: abdominal wound Past Surgical History: Appendectomy, Bariatric Surgery, Breast Surgery, Cholecystectomy, Heart Catheterization, Hysterectomy, Orthopedic Surgery Additional Past Surgical History / Comment(s): Gastric bypass and subsequent multiple surgeries d/t incision did not heal properly and bowel was nicked, exploratory laparotomies, bilateral fem/pop bypass/stents, recent L wrist fracture with sx/hardware, bilateral feet bunionectomies, L rotator cuff repair, L knee arthroscopy, L breast benign bx, EGD, colonoscopies/benign polypectomy, right collar bone, Past Anesthesia/Blood Transfusion Reactions: No Reported Reaction Past Psychological History: Anxiety, Panic Disorder Smoking Status: Former smoker Past Alcohol Use History: Occasional Past Drug Use History: None Reported - Past Family History Father Family Medical History: CVA/TIA, Pneumonia Additional Family Medical History / Comment(s): STROKE AT AGE 50. Father of pne at the age of 63 yrs. Mother Family Medical History: No Reported History Additional Family Medical History / Comment(s): Mother is healthy and 83 yrs old. Medications and Allergies Home Medications Medication Instructions Recorded Confirmed Type Metoprolol Succinate (ER) [Toprol 25 mg PO DAILY 09/25/17 09/10/22 History XL] estradioL [Estrace] 0.5 mg PO DAILY 09/25/17 09/10/22 History Sertraline [Zoloft] 150 mg PO DAILY #30 tab 02/13/20 09/10/22 Rx ALPRAZolam [Xanax] 1 mg PO DAILY 08/07/20 09/10/22 History ARIPiprazole 5 mg PO DAILY 08/07/20 09/10/22 History Temazepam 30 mg PO HS 07/08/21 09/10/22 History Atorvastatin [Lipitor] 10 mg PO DAILY 09/10/22 09/10/22 History rOPINIRole HCL [Requip] 2 mg PO HS 09/10/22 09/10/22 History Allergies Allergy/AdvReac Type Severity Reaction Status Date / Time No Known Allergies Allergy Verified 09/10/22 23:03 Physical Exam Vitals: Vital Signs Temp Pulse Pulse Pulse Resp BP BP 09/12/22 07:00 97.9 F 48 L 18 138/72 09/11/22 19:34 97.7 F 48 L 19 128/66 09/11/22 15:53 97.5 F L 47 L 14 154/82 09/11/22 14:00 48 L 16 173/63 09/11/22 13:00 50 L 20 148/66 09/11/22 12:00 50 L 65 H 112/94 10/13/22 11:00 48 L 11 L 137/63 09/11/22 10:00 44 L 31 H 126/95 09/11/22 09:00 55 L 21 151/60 Pulse Ox 09/12/22 07:00 98 09/11/22 19:34 95 09/11/22 15:53 95 09/11/22 14:00 94 L 09/11/22 13:00 95 09/11/22 12:00 97 09/11/22 11:00 95 09/11/22 10:00 95 09/11/22 09:00 94 L Intake and Output 09/11/22 09/12/22 09/12/22 22:59 06:59 14:59 Other: Voiding Method Toilet # Voids 1 Results 09/11/22 07:28 09/11/22 07:28 Current Medications Generic Name Dose Route Start Last Admin Trade Name Freq PRN Reason Stop Dose Admin Acetaminophen 650 mg 09/10/22 21:22 09/11/22 08:16 Acetaminophen Tab 325 Mg Tab PO 650 mg Q6HR PRN Administration Fever and/ or Pain Aspirin 81 mg 09/11/22 09:00 09/11/22 08:16 Aspirin 81 Mg PO 81 mg DAILY VARUN Administration Atorvastatin Calcium 80 mg 09/11/22 21:00 09/11/22 21:18 Atorvastatin 80 Mg Tab PO 80 mg HS VARUN Administration Heparin Sodium (Porcine) 5,000 unit 09/11/22 00:00 09/11/22 15:57 Heparin Sodium,Porcine/Pf 5,000 Unit/0.5 Ml Syringe SQ 5,000 unit Q8HR VARUN Administration Meclizine HCl 25 mg 09/11/22 13:16 09/11/22 17:35 Meclizine 25 Mg Tab PO 25 mg QID PRN Administration Vertigo Naloxone HCl 0.2 mg 09/10/22 16:21 Naloxone 0.4 Mg/Ml 1 Ml Vial IV Q2M PRN Opioid Reversal Ondansetron HCl 4 mg 09/10/22 21:21 09/11/22 08:16 Ondansetron 4 Mg/2 Ml Vial IVP 4 mg Q6HR PRN Administration Nausea And Vomiting Ropinirole HCl 2 mg 09/11/22 21:00 09/11/22 21:17 Ropinirole Hcl 1 Mg Tab PO 2 mg HS VARUN Administration Sertraline HCl 150 mg 09/11/22 09:30 09/11/22 11:03 Sertraline 50 Mg Tab PO 150 mg DAILY VARUN Administration Temazepam 30 mg 09/11/22 23:00 09/12/22 05:26 Temazepam 15 Mg Cap PO Not Given HS VARUN Ticagrelor 90 mg 09/11/22 09:00 09/11/22 21:39 Ticagrelor 90 Mg Tab PO 90 mg BID VARUN Administration Intake and Output 09/11/22 09/12/22 09/12/22 22:59 06:59 14:59 Other: Voiding Method Toilet # Voids 1 09/11/22 07:28 09/11/22 07:28
[2022-09-12] MEDS ORDERED: SODIUM CHLORIDE 0.9% 500 ML 500 ML IV ONE (09:58)
--- NOTE | 2022-09-12 10:05 | P.PN ---
Subjective Progress Note Date: 09/12/22 Principal diagnosis: Carotid stenosis This is a pleasant 67-year-old female with a past medical history of peripheral arterial disease status post angioplasty in 1996, COPD, DVT, hypertension, hyperlipidemia, myocardial infarction, iron deficiency anemia, former smoker, and previous gastric bypass surgery who presented to the emergency department with complaints of dizziness for the past 5 days. Patient states she was dizzy and felt like she was spinning in the room was spinning and was associated with nausea and vomiting. She still denies any association with position change or movement. She denied any other associated focal deficits such as vision change or loss, speech difficulty, extremity weakness, or memory impairment. She denies any previous history of CVA or TIA. She had a MRI of the brain that showed a large subacute infarct in the right inferior cerebellar hemisphere and probably a small acute lacunar infarct in the right occipital lobe. She was hyp ertensive on admission and was admitted to the ICU for further blood pressure management. Neurology was consulted she had further workup with a CT angiogram of the head and neck and carotid duplex reporting greater than 70% left ICA stenosis. Vascular surgery was consulted for the above. Patient was started on aspirin 81 mg, Brilinta 90 mg twice a day and Lipitor 80 mg daily. Imaging: Carotid duplex: Bilateral moderate to severe arthrosclerotic plaque, 50-69% stenosis proximal left ICA. Right ICA PSV 138.7, ICA/CCA ratio 1.5 left ICA PSV to 74.5, ICA/CCA ratio 2.1 CT angiogram head and neck: Extensive arthrosclerotic plaque at the left carotid system with greater than 70% left carotid bifurcation stenosis suspected. Approximately 50-60% stenosis suspected on the right. Correlate with dedicated arteriogram is clinically warranted. Vertebrobasilar system is diminutive in size but enhances. Correlate for vertebrobasilar insufficiency. Right superior cerebellar artery appears to be markedly diminutive in size. The inferior cere bellar artery is not well seen and therefore could not exclude a stenosis or thrombosis. Correlate with MRI clinically warranted. Brain MRI: Large subacute infarct in the right inferior cerebellar hemisphere is a change compared to old exam. Probably small acute lacunar infarcts in the right occipital lobe. CT brain C-spine without contrast: New 3.8 cm hypodensity inferior medial right cerebellar hemisphere. This is very slight mass effect on the fourth ventricle. No hydrocephalus or midline shift. No hemorrhagic transformation. An acute to subacute infarct suggested 09/12/2022. Patient is seen and examined today as a follow-up. She denies any dizziness currently. She denies any other focal deficits, denies headache, chest pain, shortness of breath, nausea or vomiting. She is currently nothing by mouth as she is scheduled to undergo CHRISTOPHER with cardiology today. No acute changes through the night. Objective - Vital Signs Vital signs: Vital Signs Temp 97.9 F 09/12/22 07:00 Pulse 48 L 09/12/22 07:00 Resp 18 09/12/22 07:00 BP 138/72 09/12/22 07:00 Pulse Ox 98 09/12/22 07:00 FiO2 Intake & Output 09/11/22 09/12/22 09/12/22 18:59 06:59 18:59 Intake Total 0 Balance 0 Intake: IV 0 Sodium Chloride 0.9% 500 0 ml 500 ml @ 999 mls/hr IV .Q31M ONE Rx#:[id number] Other: Voiding Method Toilet Toilet Bedside Commode # Voids 3 1 # Bowel Movements 1 - Exam General appearance: The patient is alert, oriented, appears in no acute d istress. HET: Head is normocephalic and atraumatic. Pupils are equal and reactive. Neck: Supple. Trachea midline. No audible carotid bruit. Heart: S1 S2. Regular rate and rhythm. Lungs: Clear to auscultation bilaterally. Abdomen: Soft, nontender, nondistended. Extremities: Normal skin color and turgor. No cyanosis, rash, ulceration, clubbing, or edema. Radial and pedal pulses are 2/4 bilaterally. Neurological: No focal deficits. Strength and sensation are grossly intact. - Labs CBC & Chem 7: 09/11/22 07:28 09/11/22 07:28 Assessment and Plan Assessment: 1. 70% left ICA stenosis, 50-60% stenosis right per CT angiogram 2. Subacute stroke of her right cerebellar with mild mass effect on fourth vent ricle, small acute lacunar infarcts in the right occipital lobe 3. Dizziness 4. Hypertension 5. Hyperlipidemia 6. Former smoker Plan: 1. Continue symptomatic supportive care 2. Agree with aspirin, brilinta and Lipitor 3. No indication at this time for any vascular surgical intervention 4. Continue with recommendations from neurology 5. Discussed with patient follow-up with vascular surgery outpatient setting in 2 weeks Thank you for this consultation, we will sign off at this time. The impression and plan of care has been dictated as directed. Dr. Tovar I performed a history and examination of this patient, discussed the same with the dictator. I agree with the dictator's note ,documented as a scribe. Any additional findings or plans will be noted.
[2022-09-12] MEDS: BENZOCAINE SPRAY 1 CAN MUCOUS MEM ONE ×2 (10:06→10:10)
[2022-09-12] MEDS ORDERED: MIDAZOLAM 2 MG/2 ML VIAL IV ONE (10:11)
[2022-09-12] MEDS ORDERED: fentaNYL (PF) 50 MCG/ML 2 ML AMP IV ONE (10:11)
[2022-09-12] MEDS: ASPIRIN 81 MG PO SCH (11:17)
[2022-09-12] MEDS: SERTRALINE 50 MG TAB PO SCH (11:18)
[2022-09-12] MEDS: HEPARIN SODIUM,PORCINE/PF 5,000 UNIT/0.5 ML SYRINGE SQ SCH ×3 (11:18→17:17)
--- NOTE | 2022-09-12 12:23 | P.PN ---
Subjective Progress Note Date: 09/12/22 The patient is seen at bedside and feels drastically better compared to initial presentation. She denies of any new neurological issues. She stated she has been on estrogen for years and has not had any issues. She had CHRISTOPHER today and per nurse was told no clots and looked normal. Objective - Vital Signs Vital signs: Vital Signs Temp 97.9 F 09/12/22 07:00 Pulse 57 L 09/12/22 10:16 Resp 18 09/12/22 10:16 BP 177/72 09/12/22 10:16 Pulse Ox 100 09/12/22 10:16 FiO2 2 09/12/22 10:16 Intake & Output 09/11/22 09/12/22 09/12/22 18:59 06:59 18:59 Intake Total 0 150 Balance 0 150 Intake: IV 0 150 Sodium Chloride 0.9% 500 0 ml 500 ml @ 999 mls/hr IV .Q31M ONE Rx#:[id number] Other: Voiding Method Toilet Toilet Bedside Commode # Voids 3 1 # Bowel Movements 1 - Exam GENERAL: The patient is sitting in a recliner chair near bedside and having her lunch and is not in acute distress. NEUROLOGICAL: Higher mental function: The patient is awake, alert, oriented to self, place and time. Patient is following commands. No aphasia and no neglect. Cranial nerves: The pupils are round, equal and reactive to light. Visual valadez is normal throughout. Extraocular movement is intact no nystagmus is noted. Facial sensation is normal to touch throughout. The facial strength is normal throughout. Tongue is midline and moved [id number] without any difficulty. No dysarthria is noted. Shoulder shrug is normal bilaterally. Motor: The strength is 5 over 5 throughout. Normal tone and bulk. Cerebellum: Normal finger to nose and heel to resendiz bilaterally . Sensation: Sensation is normal to touch throughout. Reflexes (right/left): 3+ over the brachioradialis bilaterally. Otherwise 2+ throughout. Plantars are mute bilaterally. Some other workup during this ED visit consisted of: Lipid panel: T, Cholestrol 210, LDL 117 and HDL 74 Maciel virus PCR was not detected. CT of the head is reported as new 3. centimeter hypodensity inferior medial right cerebellar hemisphere. This is very slight mass effect on the fourth ventricle. No hydrocephalus or midline shift. No hemorrhagic transformation. An acute to subacute infarct is suggested greater than 6 hours in duration given the degree of hypodensity. Mild to moderate spondylitic changes in the cervical spine. No acute fracture or malalignment. I personally reviewed the CT of the head and I agree with the report. CTA head and neck and it reported as extensive atherosclerotic plaque at the left carotid system with a greater than 70% left carotid bificurcation stenosis suspected. Approximately 50-60% stenosis suspected on the right. Correlated with dedicated arteriogram as clinically warranted. Vertebral basilar system is diminutive in size but enhances. Correlate for vertebrobasilar insufficiency. Right superior cerebellar artery appears to e markedly diminutive in size. The inferior cerebellar artery is not well seen and therefore, could not exclude a stenosis or thrombosis. MRI Brain w/ and w/o is reported as Large subacute infarct in the right inferior cerebellar hemisphere is a chnge compared to old exam. There is probably a samll acute lacunar infarcts in the right occipital lobe. Carotid Duplex is reported as bilateral moderate to severe atherosclortic plaques suggestive of 50-69% stenosis proximal left ICA. - Labs CBC & Chem 7: 09/11/22 07:28 09/11/22 07:28 Assessment and Plan Assessment: * Subacute large stroke over the right cerebellar and small focus over the right occipital. (presented with Dizziness for the past 5 days with tinnitus nausea, transient episode of vomiting and unsteady gait). Stroke seems embolic in nature but for now is cryptogenic. Usually the internal carotid causes more anterior circulation > posterior circulation. * His mild mass effect over 4th ventricle seen on CT head is likely result of cytotoxic edema from large ischemic stroke * Carotid stenosis (left 70% and right 50-69%) on CTA but on duplex it is reported as left is 50-69% left ICA * Vertebral basilar system is diminutive in size, right superior cerebellar artery appears to e markedly diminutive in size. The inferior cerebellar artery is not well seen on CTA * Hypertension * History of right carotid stenosis about 69% * History of myocardial infarction * History of gastric bypass Plan: * Continue ASA 81mg and Brilinta 90mg 1 tab bid (both new during this hospital visit) for 3 months (especially with carotid stenosis then after 3 month stop ASA but continue Brilinta). Continue Lipitor 80mg qhs for secondary stroke prophylaxis. * Consulted vascular surgery team for carotid stenosis. * Pending 2D echo report and I consulted cardiology team for CHRISTOPHER. Per nurse she was notified no clot and CHRISTOPHER looked normal. Patient will be discharge with event monitor for 30 days. * Recommend normotensive management. Will defer hypertension management to primary team. * CTA head and neck and it reported as extensive atherosclerotic plaque at the left carotid system with a greater than 70% left carotid bificurcation stenosis suspected. Approximately 50-60% stenosis suspected on the right. Correlated with dedicated arteriogram as clinically warranted. Vertebral ba silar system is diminutive in size but enhances. Correlate for vertebrobasilar insufficiency. Right superior cerebellar artery appears to e markedly diminutive in size. The inferior cerebellar artery is not well seen and therefore, could not exclude a stenosis or thrombosis. Dr. Ashford (interventional neurologist) recommend patient to continue to be observed in our facility for medical management. * Will have the patient to follow-up with Dr. Ashford (Interventional neurologist) as outpatient within 1-2 weeks. * Continue neuro checks * Cardiac monitoring * PT, OT and VENEER GLUER are consulted * She has been on estrogen for years and has not had any strokes/TIA. Unsure cause of her stroke. Consider stopping estrogen but she will have detailed discussion as outpatient with her neurologist and PCP. * Will defer the rest of medical management to the primary team. * For DVT prophylaxis: On subq heparin 5000U every 8 hours. * Recommend to follow-up with neurologist as outpatient within 1-2weeks. The plan is discussed with patient, he who is at bedside and her nurse. Otherwise no additional work-up and she is clear for discharge from neurological perspective. Time with Patient: Less than 30
--- NOTE | 2022-09-12 12:56 | CA ---
Transthoracic Echo Report Name: Malini Canela Age: 67 Gender: F : 1955 Exam Date: 09/11/2022 09:15 Exam Location: [facility] Ht (in): 64 Wt (lb): 198 Ordering Physician: Walker Rahman MD Attending/Referring Phys: Hydraulic Boom Operator Hafsa Silva RDCS Procedure CPT: Indications: stroke Cardiac Hx: Technical Quality: Contrast 1: Total Dose (mL): Contrast 2: Total Dose (mL): MEASUREMENTS (Male / Female) Normal Values 2D ECHO LV Diastolic Diameter PLAX 4.3 cm 4.2 - 5.9 / 3.9 - 5.3 cm LV Systolic Diameter PLAX 2.9 cm IVS Diastolic Thickness 1.1 cm 0.6 - 1.0 / 0.6 - 0.9 cm LVPW Diastolic Thickness 1.2 cm 0.6 - 1.0 / 0.6 - 0.9 cm LV Relative Wall Thickness 0.5 RV Internal Dim ED PLAX 2.9 cm LA Systolic Diameter LX 3.7 cm 3.0 - 4.0 / 2.7 - 3.8 cm LA Volume 79.7 cm??? 18 - 58 / 22 - 52 cm??? M-MODE Aortic Root Diameter MM 2.9 cm LA Systolic Diameter MM 4.1 cm LA Ao Ratio MM 1.4 MV E Point Septal Separation 0.4 cm AV Cusp Separation MM 1.4 cm DOPPLER MV E' Velocity 8.2 cm/s TR Peak Velocity 302.6 cm/s TR Peak Gradient 36.6 mmHg Right Ventricular Systolic Press 40.3 mmHg FINDINGS Left Ventricle Left ventricular ejection fraction is estimated at 50-55 %. Right Ventricle Normal right ventricular size and function. Mild pulmonary hypertension. Right Atrium Normal right atrial size. Left Atrium Severely increased left atrial volume. Mildly increased left atrial area. Mitral Valve Structurally normal mitral valve. Mild mitral regurgitation. Aortic Valve Trileaflet aortic valve. Aortic valve sclerosis. Tricuspid Valve Structurally normal tricuspid valve. Pulmonic Valve Structurally normal pulmonic valve. Pericardium Normal pericardium. Aorta Normal size aortic root and proximal ascending aorta. CONCLUSIONS Left ventricular ejection fraction 55% Mild to moderately dilated left atrium Mild mitral regurgitation No pericardial effusion RVSP 40 Previewed by: Dr. Solo Lucas DO (Electronically Signed) Final Date: 12 September 2022 12:55
--- NOTE | 2022-09-12 14:12 | P.PN ---
Subjective Progress Note Date: 09/12/22 67-year-old female patient, was admitted to the intensive. For blood pressure monitoring after stroke. The patient presented to the emergency department having dizziness for about 5 days. She was also having some nausea for the past 5 days in addition to the dizziness and she had emesis. She also noticed some ringing in her ears. Denied having any focal weakness, change in her speech or swallow. No previous history of CVA. CAT scan of the brain was done in the emergency room that showed a large subacute infarct in the rightinferior cerebellar hemispheres and probably a small acute lacunar infarct in the right occipital lobe. Initial blood pressure was as high as 207/80. Based on that, the patient was transferred to the intensive. For further blood pressure monitoring. She was given no active antihypertensive medication. She was given a dose of Lopressor yesterday at a dose of 25 mg by mouth and that dropped her blood pressure significantly. Since then, she was not given any blood pressure medication. Most recent BP is 140/85. She is otherwise doing well. No headaches. No altered mentation. No focal neurological deficits. 9 Zocor worsening in her neuro status since yesterday. As mentioned, CT of the head showed a cerebellar hemisphere stroke. There was also slight mass effect on the fourth ventricle. No evidence of hydrocephalus. The patient was not a candidate for thrombolytics. The patient also had a CTA of the brain that showed 70% left carotid stenosis, 50-60% right carotid stenosis and there was extensive atherosclerotic plaques in the left carotid system and the posterior circulation including the vertebral basilar system had diminished in size but it has nicely. There could be a component of vertebrobasilar basilar insufficiency. On today's evaluation, the patient is being seen on the medical floor and she is out of intensive care unit. She is doing well. She has improved significantly. No neurologic deficits at this point in time. She had a CHRISTOPHER today and no fissures also still pending for now. She did have a subacute right cerebellar stroke and also a central focus involving the right occipital lobe. She also has bilateral carotid artery disease. She is currently on a combination of aspirin and Brilinta. BP is permissively elevated. Is on statins. Is also on subcu heparin for prophylaxis. Objective - Vital Signs Vital signs: Vital Signs Temp 97.9 F 09/12/22 07:00 Pulse 57 L 09/12/22 10:16 Resp 18 09/12/22 10:16 BP 177/72 09/12/22 10:16 Pulse Ox 100 09/12/22 10:16 FiO2 2 09/12/22 10:16 Intake & Output 09/11/22 09/12/22 09/12/22 18:59 06:59 18:59 Intake Total 0 150 Balance 0 150 Intake: IV 0 150 Sodium Chloride 0.9% 500 0 ml 500 ml @ 999 mls/hr IV .Q31M ONE Rx#:[id number] Other: Voiding Method Toilet Toilet Bedside Commode # Voids 3 1 # Bowel Movements 1 - Exam The patient appeared well nourished and normally developed. Vital signs as documented. Head exam is unremarkable. No scleral icterus or corneal arcus noted. Neck is without jugular venous distension, thyromegaly, or carotid bruits. Carotid upstrokes are brisk bilaterally. Lungs are clear to auscultation and percussion. Cardiac exam reveals the PMI to be normally sized and situated. Rhythm is regular. First and second heart sounds normal. No murmurs, rubs or gallops. Abdominal exam reveals normal bowel sounds, no masses, no organomegaly and no aortic enlargement. Extremities are nonedematous and both femoral and pedal pulses are normal. NEUROLOGICAL: Higher mental function: The patient is awake, alert, oriented to self, place and time. Patient is following commands. No aphasia and no neglect. Cranial nerves: The pupils are round, equal and reactive to light and accommodation. Visual valadez was inconclusive but appears bilateral upper field cut bilaterally. Extraocular movement is intact no nystagmus is noted. Facial sensation is normal to touch throughout. The facial strength is normal throughout. Hearing is normal bilaterally to hand rub. Tongue is midline and moved [id number] without any difficulty. No dysarthria is noted. Shoulder shrug is normal bilaterally. Motor: The strength is 5 over 5 throughout. Normal tone and bulk. Cerebellum: Normal finger to nose bilaterally. Sensation: Sensation is normal to touch throughout. Reflexes (right/left): 3+ over the brachioradialis bilaterally. Otherwise 2+ throughout. Plantars are mute bilaterally. - Labs CBC & Chem 7: 09/11/22 07:28 09/11/22 07:28 Assessment and Plan Plan: Acute right cerebellar stroke, patient was outside the window for thrombolytics and the patient is being managed conservatively. CT angiogram showing bilateral carotid artery disease worse on the left with 70% stenosis on the left and 60% on the right. Cardiac rhythm is sinus. Blood pressure was elevated at the time of admission, and the patient's BP continues to be elevated and this is being allowed by neurology based on her recent stroke. Bilaterally carotid artery disease Remote history of DVT, 1996, currently on no anticoagulants Previous history of gastric bypass surgery for obesity Previous history of postoperative myocardial infarction, no cardiac intervention with stenting COPD History of restless leg syndrome History of iron deficiency anemia History of acid reflux History of peripheral vascular disease Hypertension Chronic anxiety/panic Plan CHRISTOPHER to be done today Neurologically stable BP is still elevated and this is being managed by neurology, and gradually the antihypertensive medication can be introduced as a BP continues to be quite elevated. Continue aspirin and Brilinta Monitor cardiac rhythm LDL cholesterol is 117 Continue high-dose statins 80 mg by mouth daily Monitor cardiac rhythm Neurologic consultation Sign off the case
--- NOTE | 2022-09-12 16:51 | P.PN ---
Subjective This is a 67 year old female with medical history of COPD, DVT, GERD, hypertension, gastric bypass, peripheral vascular disease with bilateral femoral artery bypass 10 years ago. Reports history of 2 heart attacks that she states were "NSTEMI's" and managed with medications. Patient also with anxiety, depression, former smoker states she quit 10 years ago. Patient follows with Dr. Roblero and also with Dr Howard with vascular services regularly. No personal history of stroke, diabetes or atrial fibrillation. States she has strong family history of stroke, and diabetes. Her father had a massive stroke in his early 50s. Patient reports to the emergency room with 5 day history of dizziness, with nausea and vomiting. Patient states that on Thursday she was out sun tanning and came in to the house. Reports passing out and does not remember the incident. When she came too, she had significant dizziness, lighthededness and vertigo and had issues with balance. She initially reports tinnitus which she states has currently resolved. Patient denies focal weakness, vision changes, difficulty with speech, or difficulty with swallowing. She does have dull headache mostly frontal/behind her eyes. Patient reports being exposed to covid 1 week ago and thought she had covid which is why she waited before coming to the ER. She has basically been laying in bed since the initial incident without improvement in symptoms. Also, states that she has missed several days of her home medications. Reports dizziness, vertigo, weakness currently. Nausea and vomiting have improved. Dizziness and lightheadedness being managed with medications. No shortness of breath, chest pain, fever, or chills. Patient had head cervical spine CT completed on admission showing new 3.8 cm hypodensity inferior medial right cerebellar hemisphere with slight mass effect on the fourth ventricle. No hydrocephalus or hemorrhagic transformation. Acute to subacute infarct [place] spected. Moderate to severe right and moderate left neuroforaminal stenosis at the level of C5 to C6. Abdomen Pelvis CT also done showing indeterminate right adrenal mass too small to characterize which is unchanged from previous, splenomegaly. Patient was admitted to intensive care unit for close monitoring and neurology was consulted. Additional diagnostics completed include; CT angiography showing greater than 70% left carotid bifurcation stenosis, 50 to 60% stenosis suspected on the right. Possible vertebrobasilar insufficiency. Unable to exclude stenosis or thrombosis inferior cerebellar artery. Follow up brain MRI is showing large subacute infarct in the right inferior cerebellar hemisphere is a change compared to old exam. Also mentions small acute lacunar infarct right occipital lobe. Carotid doppler showing Bilateral moderate to severe atherosclerotic plaque as discussed with suggestive 50 to 69% proximal left ICA stenosis. Patient presented with blood pressure in the 200s systolic and was resumed on home dose toprol which has been discontinued currently now sinus bradycardic in the 50s. Blood pressure in the 130s systolic. 09/12/2022 Patient feels better, she says her dizziness comes and goes and that the as needed medications are helping her. No more nausea vomiting and she still have some difficulty with gait but significantly improved and she is waiting for the 4 wheel walker. Patient states that she has diarrhea but this is a chronic problem Development Representative is consulted for CHRISTOPHER Ejection fraction 50-55% Patient with bilateral carotid stenosis, on the left 70% on the right 50-69%,Has been seen and evaluated by vascular surgery and recommended follow-up in 2 weeks as an outpatient, patient informed and she agrees CT of the abdomen and pelvis showing gallbladder disease and possible gallbladder polyp or stone, however patient is asymptomatic, patient informed with recommendation for outpatient follow-up, also informed about her right adrenal mass with recommendation for outpatient follow-up and patient agrees to follow up with neurosurgeon as an outpatient, Monitor blood pressure Patient currently on aspirin and brillinta , risks and benefits are explained and she verbalized understanding and acceptance. Patient was started to follow-up with Dr. Rios neurologist Dr. tim as an outpatient and she agrees Objective - Vital Signs Vital signs: Vital Signs Temp 97.9 F 09/12/22 07:00 Pulse 57 L 09/12/22 10:16 Resp 18 09/12/22 10:16 BP 177/72 09/12/22 10:16 Pulse Ox 100 09/12/22 10:16 FiO2 2 09/12/22 10:16 Intake & Output 09/11/22 09/12/22 09/12/22 18:59 06:59 18:59 Intake Total 0 150 Balance 0 150 Intake: IV 0 150 Sodium Chloride 0.9% 500 0 ml 500 ml @ 999 mls/hr IV .Q31M ONE Rx#:[id number] Other: Voiding Method Toilet Toilet Bedside Commode # Voids 3 1 # Bowel Movements 1 - Exam GENERAL: The patient is alert and oriented x3, not in any acute distress. Well developed, well nourished. HEENT: Pupils are round and equally reacting to light. EOMI. No scleral icterus. No conjunctival pallor. Normocephalic, atraumatic. No pharyngeal erythema. No thyromegaly. CARDIOVASCULAR: S1 and S2 present. No murmurs, rubs, or gallops. PULMONARY: Chest is clear to auscultation, no wheezing or crackles. ABDOMEN: Soft, nontender, nondistended, normoactive bowel sounds. No palpable organomegaly. MUSCULOSKELETAL: No joint swelling or deformity. EXTREMITIES: No cyanosis, clubbing, or pedal edema. NEUROLOGICAL: Gross neurological examination did not reveal any focal deficits. SKIN: No rashes. no petechiae. - Labs CBC & Chem 7: 09/11/22 07:28 09/11/22 07:28 Assessment and Plan Assessment: Subacute stroke right inferior cerebellar hemisphere , resultant dizziness, nausea vomiting and gait instability, improving Bilateral carotid artery stenosis, 50-69 % and left 70% Gallbladder polyp Right adrenal mass, stable from prior exam History Hypertension Dyslipidemia History myocardial infarction History of DVT in 1996 not currently on anticoagulation History of COPD Peripheral vascular disease with previous femoral bypass bilaterally Gastroesophageal reflux disease History of gastric bypass surgery Anxiety/Panic disorder Obesity Former Smoker Plan: Neurology consultation Continue neuro checks and close monitoring PT/OT have evaluated the patient Recommend holding off on blood pressure medications/ Toprol for now Cardiology has been consulted for CHRISTOPHER Patient has been started on aspirin, brilenta, lipitor DVT prophylaxis, subcutaneous heparin
[2022-09-12] MEDS: TICAGRELOR 90 MG TAB PO SCH ×2 (17:17→20:53)
[2022-09-12] MEDS ORDERED: TEMAZEPAM 15 MG CAP PO SCH (21:00)
[2022-09-12] MEDS: ATORVASTATIN 80 MG TAB PO SCH (21:18)
[2022-09-13] MEDS: HEPARIN SODIUM,PORCINE/PF 5,000 UNIT/0.5 ML SYRINGE SQ SCH ×2 (00:48→09:07)
--- NOTE | 2022-09-13 08:05 | ECHOT ---
TRANSESOPHAGEAL ECHOCARDIOGRAM INDICATION: TIA. PROCEDURE NOTE: After obtaining informed consent, transesophageal echocardiogram was performed in left lateral position using an Omniplane probe. Local and IV sedation were obtained using 2 mg of Versed and 25 mcg of fentanyl. Total sedation time was 10 minutes. Color Doppler, 2D, and spectral analysis had been performed. FINDINGS: 1. There is no intracardiac thrombus within the left atrial appendage left atrium, right atrium, right ventricle. 2. Left ventricle has normal size and systolic function. 3. Left atrium appears mildly enlarged. 4. Right atrium and right ventricle seen within normal limits. 5. Interatrial septum: There is no evidence of [id number] shunt by color-flow Doppler or [id number] shunt by agitated saline contrast study. 6. Mitral valve appears anatomically normal. There is severe central mitral regurgitation noted. 7. Aortic valve shows sclerotic changes with a 3-leaflet valve. There is no evidence of aortic stenosis or regurgitation. 8. Tricuspid valve appears normal. CONCLUSIONS: Normal LV systolic function. No intracardiac thrombus. No shunting across the interatrial septum. Severe mitral regurgitation. MMODL / IJN: [id number] /
[2022-09-13 09:00] LABS: African American GFR (CKD) 59.7 (60.0-200.0); Anion Gap 9.8 mmol/L (10.00-18.00); BUN/Creat Ratio 12.36 Ratio (12.00-20.00); Blood Urea Nitrogen 13.6 mg/dL (9.0-27.0); Calcium 8.6 mg/dL (8.7-10.3); Carbon Dioxide 23.2 mmol/L (20.0-27.5); Non-African American GFR(CKD) 51.5 (60.0-200.0); Potassium 4.4 mmol/L (3.5-5.5)
[2022-09-13] MEDS: TICAGRELOR 90 MG TAB PO SCH (09:07)
[2022-09-13] MEDS: SERTRALINE 50 MG TAB PO SCH (09:07)
[2022-09-13] MEDS: ASPIRIN 81 MG PO SCH (09:07)
[2022-09-13] MEDS ORDERED: lisinopriL 10 MG TAB PO SCH (10:45)
--- NOTE | 2022-09-13 12:15 | P.PN ---
Subjective Progress Note Date: 09/13/22 The patient is a 67-year-old female who is currently admitted to the hospital with acute lacunar infarct of the right occipital lobe and large subacute infarct in the right inferior cerebellar hemisphere. The patient underwent transesophageal echocardiogram yesterday with primary lease administration supervisor Dr. Gil. There was no evidence of PFO that was also found to have moderate to severe mitral regurgitation. The patient was interviewed and examined resting comfortably in bed. She states she tolerated her procedure well. She denies any significant sore throat today. She states her CVA symptoms have completely resolved and generally feels well. GENERAL: Well-appearing, well-nourished and in no acute distress. NECK: Supple without JVD or thyromegaly. LUNGS: Breath sounds clear to auscultation bilaterally. Respiration equal and unlabored. No wheezes, rales or rhonchi. HEART: Regular rate and rhythm. Systolic murmur. No rubs or gallops. S1 and S2 heard. EXTREMITIES: Normal range of motion, no edema. No clubbing or cyanosis. Peripheral pulses intact and strong. VITALS: Blood pressure 138/75, pulse 62, respiratory rate 18, SpO2 96% on room air, temp 98.4F TELEMETRY: Sinus rhythm overnight LABS: Sodium 141, potassium 4.4, BUN 13, creatinine 1.1 IMPRESSION: Acute lacunar infarct of right occipital lobe Large subacute infarct in the right inferior cerebellar hemisphere Hypertension Hyperlipidemia Severe mitral regurgitation Former smoker PLAN: Recommend continuing Brilinta for 1 month, then switching to Plavix Continue event monitoring for arrhythmia Follow-up with primary lease administration supervisor Dr. Gil I am dictating on behalf of Dr Pacheco Levine's history/physical and assessment/plan. Objective - Vital Signs Vital signs: Vital Signs Temp 98.4 F 09/13/22 07:49 Pulse 62 09/13/22 07:49 Resp 18 09/13/22 07:49 BP 138/75 09/13/22 07:49 Pulse Ox 96 09/13/22 07:49 FiO2 2 09/12/22 10:16 Intake & Output 09/12/22 09/13/22 09/13/22 18:59 06:59 18:59 Intake Total 150 Balance 150 Intake: IV 150 Other: # Voids 5 2 # Bowel Movements 1 - Labs CBC & Chem 7: 09/11/22 07:28 09/13/22 06:02 Labs: Abnormal Lab Results - Last 24 Hours (Table) 09/13/22 Range/Units 06:02 Anion Gap 9.80 L (10.00-18.00) mmol/L Est GFR (CKD-EPI)AfAm 59.7 L (60.0-200.0) Est GFR (CKD-EPI)NonAf 51.5 L (60.0-200.0) Calcium 8.6 L (8.7-10.3) mg/dL
[2022-09-13 15:29] VITALS: BP 129/63; PULSE 59; RESP 16; TEMP 97.6
--- NOTE | 2022-09-13 22:18 | P.DS ---
Providers Date of admission: 09/10/22 16:22 Attending physician: Uriel Stein Consults: 09/10/22 16:21 Consult Physician Routine Consulting Provider: Gerber Recinos Consult Reason/Comments: CVA Do you want consulting provider notified?: Already Contacted Consult Physician Urgent Consulting Provider: Walker Rahman Consult Reason/Comments: CVA Do you want consulting provider notified?: Already Contacted 09/11/22 07:41 Consult Physician Urgent Consulting Provider: Laureen Tovar Consult Reason/Comments: carotid stenosis Do you want consulting provider notified?: Yes 09/11/22 13:05 Consult Physician Routine Consulting Provider: Pacheco Levine Consult Reason/Comments: CHRISTOPHER Do you want consulting provider notified?: Yes Primary care physician: [facility] Course: Diagnoses: Subacute stroke right inferior cerebellar hemisphere , resultant dizziness, nausea vomiting and gait instability, improved symptoms and patient stable for discharge Bilateral carotid artery stenosis, 50-69 % and left 70%. Cleared by vascular surgery for discharge Gallbladder polyp, versus a stone. Asymptomatic, patient informed to follow up outpatient and she agrees Right adrenal mass, stable from prior exam, patient informed to follow up outpatient and she agreed History Hypertension Dyslipidemia Splenomegaly, patient informed and instructed to follow up outpatient and she agrees History myocardial infarction History of DVT in 1996 not currently on anticoagulation History of COPD Peripheral vascular disease with previous femoral bypass bilaterally Gastroesophageal reflux disease History of gastric bypass surgery Anxiety/Panic disorder Obesity Former Smoker Hospital course: This is a 67 year old female with medical history of COPD, DVT, GERD, hypertension, gastric bypass, peripheral vascular disease with bilateral femoral artery bypass 10 years ago. Reports history of 2 heart attacks that she states were "NSTEMI's" and managed with medications. Patient also with anxiety, depression, former smoker states she quit 10 years ago. Patient follows with Dr. Roblero and also with Dr Howard with vascular services regularly. No personal history of stroke, diabetes or atrial fibrillation. Patient presents with dizziness, nausea vomiting and gait instability, MRI showing right cerebellar and right occipital large subacute stroke. Workup showing evidence of bilateral carotid stenosis however vascular surgery recommended no surgical intervention and follow-up as an outpatient in [address] Tovar and patient informed and she agrees. Also cardiac workup was unremarkable. She had a CHRISTOPHER per trekking guide. Patient symptoms are controlled on aspirin and brillinta neurologist, her insurance does not cover brillinta completely, per trekking guide a copoun of free brillinta and after 1 month change it to Plavix. Importance of aggressive therapy explained for the patient Patient was cleared for discharge by neurology (I discussed the case with the neurologist by myself) team, cardiology team, vascular surgery and other consultants Problems and management plan were discussed with the patient and he verbalized understanding and acceptance Patient was found stable and can be discharged home however he needs follow-up as an outpatient. Patient was instructed to follow up with PCP Dr. Monreal within one week and patient agrees Patient was instructed to follow up with from interventional radiologist and Dr. Oshea neurologist in one week and she agrees Patient was instructed to follow up with Dr. Gil trekking guide and Dr. Tovar vascular interventions in 1-2 weeks and she agrees Also patient was instructed to follow up with surgeon Dr. Murillo in 2 weeks for her adrenal mass, gallbladder disease and she agrees Physical exam Gen: patient is a AAOx3, no distress CVS: S1-S2, RRR, no murmur Lungs: B/L CTA, no wheezing Abdomen: soft, no distention, no tenderness, positive bowel sounds Extremity: no leg edema or induration Time spent more than 35 minutes Patient Condition at Discharge: Stable Plan - Discharge Summary Discharge Rx Participant: No New Discharge Prescriptions: New Meclizine [Antivert] 25 mg PO QID PRN #20 tab PRN Reason: Vertigo Ticagrelor [Brilinta] 90 mg PO BID #60 tab Atorvastatin [Lipitor] 80 mg PO HS #30 tab lisinopriL [Zestril] 10 mg PO DAILY #30 tab Aspirin 81 mg PO DAILY #30 tab Acetaminophen Tab [Tylenol] 650 mg PO Q6HR PRN tab PRN Reason: Fever And/ Or Pain Continue Metoprolol Succinate (ER) [Toprol XL] 25 mg PO DAILY Sertraline [Zoloft] 150 mg PO DAILY #30 tab ALPRAZolam [Xanax] 1 mg PO DAILY Temazepam 30 mg PO HS rOPINIRole HCL [Requip] 2 mg PO HS Discontinued Atorvastatin [Lipitor] 10 mg PO DAILY No Action estradioL [Estrace] 0.5 mg PO DAILY ARIPiprazole 5 mg PO DAILY Discharge Medication List Metoprolol Succinate (ER) [Toprol XL] 25 mg PO DAILY 10/27/17 [History] estradioL [Estrace] 0.5 mg PO DAILY 09/25/17 [History] Sertraline [Zoloft] 150 mg PO DAILY #30 tab 02/13/20 [Rx] ALPRAZolam [Xanax] 1 mg PO DAILY 08/07/20 [History] ARIPiprazole 5 mg PO DAILY 08/07/20 [History] Temazepam 30 mg PO HS 07/08/21 [History] rOPINIRole HCL [Requip] 2 mg PO HS 09/10/22 [History] Acetaminophen Tab [Tylenol] 650 mg PO Q6HR PRN tab 09/13/22 [Rx] Aspirin 81 mg PO DAILY #30 tab 09/13/22 [Rx] Atorvastatin [Lipitor] 80 mg PO HS #30 tab 09/13/22 [Rx] Meclizine [Antivert] 25 mg PO QID PRN #20 tab 09/13/22 [Rx] Ticagrelor [Brilinta] 90 mg PO BID #60 tab 09/13/22 [Rx] lisinopriL [Zestril] 10 mg PO DAILY #30 tab 09/13/22 [Rx] Follow up Appointment(s)/Referral(s): [facility], [NON-STAFF] - As Needed Parmjit Roblero MD [Primary Care Provider] - 1-2 days Laureen Tvoar DO [STAFF PHYSICIAN] - 2 Weeks Nick Ashford MD [STAFF PHYSICIAN] - 1 Week Brielle Oshea MD [Medical Doctor] - 1 Week (Neurologist) Theo Gil MD [STAFF PHYSICIAN] - 1 Week (trekking guide ) Reese Sullivan MD [STAFF PHYSICIAN] - 2 Weeks (general surgeon , for your right adrenal mass) Patient Instructions/Handouts: Stroke (DC), Blood Thinners (DC) Activity/Diet/Wound Care/Special Instructions: heart healthy diet Activity is restricted till you see your doctor Continue with brillinta one month and then switch it to Plavix per trekking guide Discharge Disposition: HOME WITH HOME HEALTH SERVICES
== END 2022-09-13 16:01 | disposition home health service (06) | DRG 64 ==
LOC: EC 10:26 → 2SICU 16:22 → 4SSUR 09-11 15:33
PROVIDERS: ADMIT Internal Medicine; ATTEND Internal Medicine
PROC: B246ZZ4 Ultrasonography of Right and Left Heart, Transesophageal (ICD-10-PCS; principal; 2022-09-12 09:35)
DX: I63.81 Other cerebral infarction due to occlusion or stenosis of small artery (principal); G93.6 Cerebral edema; I63.441 Cerebral infarction due to embolism of right cerebellar artery; E86.0 Dehydration; E27.9 Disorder of adrenal gland, unspecified; E66.9 Obesity, unspecified; Z68.34 Body mass index [BMI] 34.0-34.9, adult; E78.5 Hyperlipidemia, unspecified; F32.A Depression, unspecified; F41.0 Panic disorder [episodic paroxysmal anxiety]; K21.9 Gastro-esophageal reflux disease without esophagitis; K82.4 Cholesterolosis of gallbladder; H93.19 Tinnitus, unspecified ear; G25.81 Restless legs syndrome; Z20.822 Contact with and (suspected) exposure to COVID-19; I10 Essential (primary) hypertension; I25.2 Old myocardial infarction; I65.23 Occlusion and stenosis of bilateral carotid arteries; I73.9 Peripheral vascular disease, unspecified; J44.9 Chronic obstructive pulmonary disease, unspecified; R29.701 NIHSS score 1; Z79.02 Long term (current) use of antithrombotics/antiplatelets; Z79.82 Long term (current) use of aspirin; Z79.899 Other long term (current) drug therapy; Z86.718 Personal history of other venous thrombosis and embolism; Z86.73 Personal history of transient ischemic attack (TIA), and cerebral infarction without residual deficits; Z90.710 Acquired absence of both cervix and uterus; Z87.891 Personal history of nicotine dependence; Z98.84 Bariatric surgery status
CPT/HCPCS: 36415; 70450; 70496; 70498; 70553; 71046; 72125; 74177; 80048; 80053; 80061; 81003; 83605; 83735; 84484; 85025; 85610; 85730; 87502; 87635; 93005; 93270; 93306; 93312; 93320; 93325; 93880; 96361; 96374; 96375; 99291

== ENCOUNTER 2022-09-22 11:35 | Observation (INO) | payer MEDICARE ==
[2022-09-22] MEDS ORDERED: SODIUM CHLORIDE 0.9% 500 ML 500 ML IV STA (11:46)
--- NOTE | 2022-09-22 11:55 | ED ---
General Adult HPI - General Chief complaint: Dizziness Stated complaint: dizziness Time Seen by Provider: 09/22/22 11:35 Source: patient, RN notes reviewed, old records reviewed Mode of arrival: EMS Limitations: no limitations - History of Present Illness Initial comments: This is a 67-year-old female presents emergency Department with a recent past medical history is for a cerebellar stroke. Patient comes in today with similar symptoms that she had when she had her stroke. Patient states started at 6:00 this morning. Patient states she is very dizzy she has a headache on top of her head and she became very nauseous. Patient states she's of the same symptom she had when she was here 3 weeks ago with a stroke. Patient denies any weakness or numbness of her extremities. Patient denies any fever chills or cough. Patient denies any chest pain palpitations difficulty breathing. - Related Data Home Medications Medication Instructions Recorded Confirmed Metoprolol Succinate (ER) [Toprol 25 mg PO DAILY 09/25/17 09/22/22 XL] estradioL [Estrace] 0.5 mg PO DAILY 09/25/17 09/22/22 ALPRAZolam [Xanax] 1 mg PO DAILY 08/07/20 09/22/22 ARIPiprazole 5 mg PO DAILY 08/07/20 09/22/22 Temazepam 30 mg PO HS 07/08/21 09/22/22 rOPINIRole HCL [Requip] 2 mg PO HS 09/10/22 09/22/22 Clopidogrel [Plavix] 75 mg PO DIRECTED 09/22/22 09/22/22 Furosemide [Lasix] 20 mg PO DAILY 09/22/22 09/22/22 Previous Rx's Medication Instructions Recorded Sertraline [Zoloft] 150 mg PO DAILY #30 tab 02/13/20 Acetaminophen Tab [Tylenol] 650 mg PO Q6HR PRN tab 09/13/22 Aspirin 81 mg PO DAILY #30 tab 09/13/22 Atorvastatin [Lipitor] 80 mg PO HS #30 tab 09/13/22 Meclizine [Antivert] 25 mg PO QID PRN #20 tab 09/13/22 Ticagrelor [Brilinta] 90 mg PO BID #60 tab 09/13/22 lisinopriL [Zestril] 10 mg PO DAILY #30 tab 09/13/22 Allergies Allergy/AdvReac Type Severity Reaction Status Date / Time No Known Allergies Allergy Verified 09/22/22 13:15 Review of Systems ROS Statement: Those systems with pertinent positive or pertinent negative responses have been documented in the HPI. ROS Other: All systems not noted in ROS Statement are negative. Past Medical History Past Medical History: COPD, CVA/TIA, Deep Vein Thrombosis (DVT), GERD/Reflux, Hypertension, Myocardial Infarction ([place]), Pneumonia, Vascular Disorder Additional Past Medical History / Comment(s): Previous history of gastric bypass surgery for obesity, remote history of a right lower extremity DVT 1996, peripheral vascular disease with previous angioplasty, restless leg syndrome, iron deficiency, COPD, Last Myocardial Infarction Date:: 10/2014 History of Any Multi-Drug Resistant Organisms: MRSA Date of last positivie culture/infection: 2000 MDRO Source:: abdominal wound Past Surgical History: Appendectomy, Bariatric Surgery, Breast Surgery, Cholecystectomy, Heart Catheterization, Hysterectomy, Orthopedic Surgery Additional Past Surgical History / Comment(s): Gastric bypass and subsequent multiple surgeries d/t incision did not heal properly and bowel was nicked, exploratory laparotomies, bilateral fem/pop bypass/stents, recent L wrist fracture with sx/hardware, bilateral feet bunionectomies, L rotator cuff repair, L knee arthroscopy, L breast benign bx, EGD, colonoscopies/benign polypectomy, right collar bone, Past Anesthesia/Blood Transfusion Reactions: No Reported Reaction Past Psychological History: Anxiety, Panic Disorder Smoking Status: Former smoker Past Alcohol Use History: Occasional Past Drug Use History: None Reported - Past Family History Father Family Medical History: CVA/TIA, Pneumonia Additional Family Medical History / Comment(s): STROKE AT AGE 50. Father of pne at the age of 63 yrs. Mother Family Medical History: No Reported History Additional Family Medical History / Comment(s): Mother is healthy and 83 yrs old. General Exam - General Exam Comments Initial Comments: GENERAL: Patient is well-developed and well-nourished. Patient is nontoxic and well- hydrated and is in mild distress. ENT: Neck is soft and supple. No significant lymphadenopathy is noted. Oropharynx is clear. Moist mucous membranes. Neck has full range of motion without eliciting any pain. EYES: The sclera were anicteric and conjunctiva were pink and moist. Extraocular movements were intact and pupils were equal round and reactive to light. Eyelids were unremarkable. PULMONARY: Unlabored respirations. Good breath sounds bilaterally. No audible rales rhonchi or wheezing was noted. CARDIOVASCULAR: There is a regular rate and rhythm without any murmurs gallops or rubs. ABDOMEN: Soft and nontender with normal bowel sounds. SKIN: Skin is clear with no lesions or rashes and otherwise unremarkable. NEUROLOGIC: Patient is alert and oriented x3. Cranial nerves II through XII are grossly intact. Motor and sensory are also intact. Normal speech, volume and content. Symmetrical smile. Cerebellar finger-nose testing is normal bilaterally. NIH is 0 MUSCULOSKELETAL: Normal extremities with adequate strength and full range of motion. No lower extremity swelling or edema. No calf tenderness. LYMPHATICS: No significant lymphadenopathy is noted PSYCHIATRIC: Normal psychiatric evaluation. Limitations: no limitations Course Vital Signs 09/22/22 11:38 Temperature 97.9 F Pulse Rate 58 L Respiratory 16 Rate Blood Pressure 136/67 O2 Sat by Pulse 98 Oximetry Medical Decision Making - Medical Decision Making EKG shows sinus bradycardia with occasional PVC at 56 bpm NE interval is 209 QRS is 90 QT interval 426 QTC is 417. Patient's EKG shows no ST segment elevation or depression. Chest x-ray shows no acute abnormality. CT of the brain shows no acute abnormality. Because he sustained symptoms the patient had a few weeks ago when she had a stroke I'm going to assume that this again is a stroke potentially worsening of the strokes on going to admit the patient. I will consult neurology. - Lab Data Result diagrams: 09/22/22 11:53 09/22/22 11:53 Lab Results 09/22/22 09/22/22 09/22/22 Range/Units 11:53 11:53 11:53 WBC 4.5 (3.8-10.6) k/uL RBC 4.25 (3.80-5.40) m/uL Hgb 13.6 (11.4-16.0) gm/dL Hct 38.3 (34.0-46.0) % MCV 90.1 (80.0-100.0) fL MCH 32.0 (25.0-35.0) pg MCHC 35.5 (31.0-37.0) g/dL RDW 12.9 (11.5-15.5) % Plt Count 137 L (150-450) k/uL MPV 8.9 Neutrophils % 68 % Lymphocytes % 25 % Monocytes % 4 % Eosinophils % 1 % Basophils % 1 % Neutrophils # 3.0 (1.3-7.7) k/uL Lymphocytes # 1.1 (1.0-4.8) k/uL Monocytes # 0.2 (0-1.0) k/uL Eosinophils # 0.1 (0-0.7) k/uL Basophils # 0.0 (0-0.2) k/uL PT 10.3 (9.0-12.0) sec INR 0.9 (<1.2) APTT 22.4 (22.0-30.0) sec Sodium 136 L (137-145) mmol/L Potassium 4.2 (3.5-5.1) mmol/L Chloride 104 (98-107) mmol/L Carbon Dioxide 22 (22-30) mmol/L Anion Gap 10 mmol/L BUN 15 (7-17) mg/dL Creatinine 1.00 (0.52-1.04) mg/dL Est GFR (CKD-EPI)AfAm 67 (>60 ml/min/1.73 sqM) Est GFR (CKD-EPI)NonAf 58 (>60 ml/min/1.73 sqM) Glucose 141 H (74-99) mg/dL Calcium 8.5 (8.4-10.2) mg/dL Total Bilirubin 0.8 (0.2-1.3) mg/dL AST 40 H (14-36) U/L ALT 42 H (4-34) U/L Alkaline Phosphatase 108 (38-126) U/L Troponin I (0.000-0.034) ng/mL Total Protein 6.3 (6.3-8.2) g/dL Albumin 4.2 (3.5-5.0) g/dL 09/22/22 Range/Units 11:53 WBC (3.8-10.6) k/uL RBC (3.80-5.40) m/uL Hgb (11.4-16.0) gm/dL Hct (34.0-46.0) % MCV (80.0-100.0) fL MCH (25.0-35.0) pg MCHC (31.0-37.0) g/dL RDW (11.5-15.5) % Plt Count (150-450) k/uL MPV Neutrophils % % Lymphocytes % % Monocytes % % Eosinophils % % Basophils % % Neutrophils # (1.3-7.7) k/uL Lymphocytes # (1.0-4.8) k/uL Monocytes # (0-1.0) k/uL Eosinophils # (0-0.7) k/uL Basophils # (0-0.2) k/uL PT (9.0-12.0) sec INR (<1.2) APTT (22.0-30.0) sec Sodium (137-145) mmol/L Potassium (3.5-5.1) mmol/L Chloride (98-107) mmol/L Carbon Dioxide (22-30) mmol/L Anion Gap mmol/L BUN (7-17) mg/dL Creatinine (0.52-1.04) mg/dL Est GFR (CKD-EPI)AfAm (>60 ml/min/1.73 sqM) Est GFR (CKD-EPI)NonAf (>60 ml/min/1.73 sqM) Glucose (74-99) mg/dL Calcium (8.4-10.2) mg/dL Total Bilirubin (0.2-1.3) mg/dL AST (14-36) U/L ALT (4-34) U/L Alkaline Phosphatase (38-126) U/L Troponin I <0.012 (0.000-0.034) ng/mL Total Protein (6.3-8.2) g/dL Albumin (3.5-5.0) g/dL Disposition Clinical Impression: CVA (cerebral vascular accident) Disposition: ADMITTED IP TO THIS HOSP Referrals: Parmjit Roblero MD [Primary Care Provider] - 1-2 days Time of Disposition: 14:04
[2022-09-22 12:10] LABS: Basophils % (A) 1 %; Eosinophils # (A) 0.1 k/uL (0-0.7); Eosinophils % (A) 1 %; HCT 38.3 % (34.0-46.0); HGB 13.6 gm/dL (11.4-16.0); Lymphocytes # (A) 1.1 k/uL (1.0-4.8); Lymphocytes % (A) 25 %; MCHC 35.5 g/dL (31.0-37.0); MCV 90.1 fL (80.0-100.0); Mean Platelet Volume 8.9; Monocytes # (A) 0.2 k/uL (0-1.0); Monocytes % (A) 4 %; Neutrophils % (A) 68 %; Platelet Count 137 k/uL (150-450); RBC 4.25 m/uL (3.80-5.40); RDW 12.9 % (11.5-15.5); WBC 4.5 k/uL (3.8-10.6)
[2022-09-22 12:25] LABS: Albumin 4.2 g/dL (3.5-5.0); Calcium 8.5 mg/dL (8.4-10.2); Potassium 4.2 mmol/L (3.5-5.1); Total Bilirubin 0.8 mg/dL (0.2-1.3); Total Protein 6.3 g/dL (6.3-8.2)
--- NOTE | 2022-09-22 12:33 | CT ---
EXAMINATION TYPE: CT brain wo con for TPA DATE OF EXAM: 09/22/2022 COMPARISON: 09/22/2022 HISTORY: Dizziness CT DLP: 1137.[address] of the brain was performed. The ventricles, basal cisterns and sulci overlying the cerebral convexities demonstrate mild enlargem ent. There is no evidence for intracranial hemorrhage or sulcal effacement. There is decreased attenuation about the periventricular white matter and deep white matter of both c erebral hemispheres, compatible with chronic small vessel ischemia. Differential diagnosis does inclu de demyelination. No mass effects are seen.No midline shift. Osseous calvarium is intact. If symptoms persist consider MRI. IMPRESSION: 1. Age related atrophic and chronic small vessel ischemic change without acute intracranial process s een at this time.
[2022-09-22 13:12] LABS: INR 0.9 (<1.2); Partial Thromboplastin Time 22.4 sec (22.0-30.0); Prothrombin Time 10.3 sec (9.0-12.0)
--- NOTE | 2022-09-22 13:12 | XR ---
EXAMINATION TYPE: XR chest 2V DATE OF EXAM: 09/22/2022 COMPARISON: Chest x-ray dated 09/10/2022 HISTORY: Altered mental status, left-sided weakness TECHNIQUE: Frontal and lateral views of the chest are obtained. FINDINGS: There is no focal air space opacity, pleural effusion, or pneumothorax seen. The cardiac silhouette size is within normal limits. There is an right hemidiaphragm is elevated. Electronic jamil ce over the left chest. Postop changes are noted to the right shoulder. The osseous structures are i ntact. IMPRESSION: No acute cardiopulmonary process.
[2022-09-22] MEDS ORDERED: ASPIRIN 325 MG TAB PO STA (14:08)
[2022-09-22] MEDS ORDERED: MECLIZINE 12.5 MG TAB PO PRN (16:02)
--- NOTE | 2022-09-22 16:04 | P.CNNES ---
History of Present Illness Consult date: 09/22/22 Requesting physician: Gunner Garrison Reason for Consult: stroke History of Present Illness: This is a 67-year-old woman with history of stroke (large right cerebellar and small focus over right occipital), carotid stenosis, hypertension, myocardial infarction, gastric bypass who presented emergency department because of feeling dizziness headache nausea. Patient's symptoms began on 09/21/2022 around evening time according to patient and slept it off. She felt she has close to the the same symptoms as she had about 2-3 weeks ago when she presents to our facility on the second week of August of this year and was found to have large right cerebellar stroke and a small focus of occipital stroke. Patient current ly denies of any new focal weakness, numbness, visual disturbances, difficulty getting her words out or swalowing. She felt dizzy and felt room is spinning around her. She took Anitvert early in A.M. today and feels drastically better. She is a on aspirin 81 mg, Brilinta 90mg 1 tab bid and on Lipitor 80mg daily. She has coming up appointment with vascular surgery team and has appointment down line with interventional neurology team. As I stated the patient presented to our facility beginning of second week of August 2022 and was found to have subacute stroke as stated above. Last time she presented 5 days prior to presented to the hospital. Patient had mild mass effect over the fourth ventricle. She had carotid stenosis left is about 70% the right is 50-69 on CTA but lower on the carotid duplex. She was found to have vertebral basilar system is diminutive in size in the right superior cerebellar artery and the inferior cerebellar artery is not seen on the CTA. Neuro-interventional neurologist stated for medical management in no intervention needed that. She had a CHRISTOPHER which is reported as normal. Patient was notified to follow up with vascular surgery team and neuro-inte rventionalists Dr. Buchanan's as an outpatient. Please refer to my note for the details. Some of the workup during this hospital visit consisted of: CT of the head is reported as age-related atrophy and chronic small vessel ischemic changes without acute intracranial process seen at this time. I per sonally reviewed the CT of head and I do not appreciate any acute or subacute changes that is new compared to the old. I do see the old the changes over the right cerebellar. EKG is reported as sinus bradycardia with occasional supraventricular premature complexes. Borderline EKG. No IV TPA since patient had a recent stroke this month and the risk outweighed the benefit. Review of Systems Review of system: The 12 point system was reviewed and apparent positive and negative per HPI. Past Medical History Past Medical History: COPD, CVA/TIA, Deep Vein Thrombosis (DVT), GERD/Reflux, Hypertension, Myocardial Infarction ([place]), Pneumonia, Vascular Disorder Additional Past Medical History / Comment(s): Previous history of gastric bypass surgery for obesity, remote history of a right lower extremity DVT 1996, peripheral vascular disease with previous angioplasty, restless leg syndrome, iron deficiency, COPD, Last Myocardial Infarction Date:: 10/2014 History of Any Multi-Drug Resistant Organisms: MRSA Date of last positivie culture/infection: 2000 MDRO Source:: abdominal wound Past Surgical History: Appendectomy, Bariatric Surgery, Breast Surgery, Raeann cystectomy, Heart Catheterization, Hysterectomy, Orthopedic Surgery Additional Past Surgical History / Comment(s): Gastric bypass and subsequent multiple surgeries d/t incision did not heal properly and bowel was nicked, exploratory laparotomies, bilateral fem/pop bypass/stents, recent L wrist fracture with sx/hardware, bilateral feet bunionectomies, L rotator cuff repair, L knee arthroscopy, L breast benign bx, EGD, colonoscopies/benign polypectomy, right collar bone, Past Anesthesia/Blood Transfusion Reactions: No Reported Reaction Past Psychological History: Anxiety, Panic Disorder Smoking Status: Former smoker Past Alcohol Use History: Occasional Past Drug Use History: None Reported - Past Family History Father Family Medical History: CVA/TIA, Pneumonia Additional Family Medical History / Comment(s): STROKE AT AGE 50. Father of pne at the age of 63 yrs. Mother Family Medical History: No Reported History Additional Family Medical History / Comment(s): Mother is healthy and 83 yrs old. Medications and Allergies Home Medications Medication Instructions Recorded Confirmed Type Metoprolol Succinate (ER) [Toprol 25 mg PO DAILY 09/25/17 09/22/22 History XL] estradioL [Estrace] 0.5 mg PO DAILY 09/25/17 09/22/22 History Sertraline [Zoloft] 150 mg PO DAILY #30 tab 02/13/20 09/22/22 Rx ALPRAZolam [Xanax] 1 mg PO DAILY 08/07/20 09/22/22 History ARIPiprazole 5 mg PO DAILY 08/07/20 09/22/22 History Temazepam 30 mg PO HS 07/08/21 09/22/22 History rOPINIRole HCL [Requip] 2 mg PO HS 09/10/22 09/22/22 History Acetaminophen Tab [Tylenol] 650 mg PO Q6HR PRN tab 09/13/22 09/22/22 Rx Aspirin 81 mg PO DAILY #30 tab 09/13/22 09/22/22 Rx Atorvastatin [Lipitor] 80 mg PO HS #30 tab 09/13/22 09/22/22 Rx Meclizine [Antivert] 25 mg PO QID PRN #20 tab 09/13/22 09/22/22 Rx Ticagrelor [Brilinta] 90 mg PO BID #60 tab 09/13/22 09/22/22 Rx lisinopriL [Zestril] 10 mg PO DAILY #30 tab 09/13/22 09/22/22 Rx Clopidogrel [Plavix] 75 mg PO DIRECTED 09/22/22 09/22/22 History Furosemide [Lasix] 20 mg PO DAILY 09/22/22 09/22/22 History Allergies Allergy/AdvReac Type Severity Reaction Status Date / Time No Known Allergies Allergy Verified 09/22/22 13:15 Physical Examination - Vital Signs Vital Signs: Vital Signs Temp Pulse Resp BP Pulse Ox 09/22/22 11:38 97.9 F 58 L 16 136/67 98 Intake and Output 09/21/22 09/22/22 09/22/22 22:59 06:59 14:59 Other: Weight 83.461 kg GENERAL: The patient is lying in bed and is not in acute distress. CHEST: The heart rate is regular rate rhythm. No murmurs to auscultation. No carotid bruit bilaterally. LUNG: Clear to auscultation bilaterally no wheezing noted throughout. Not labored breathing. ABDOMEN/GI: Bowel sounds present in all 4 quadrants. No tenderness to palpation throughout. NEUROLOGICAL: Higher mental function: The patient is awake, alert, oriented to self, place and time. Patient is following commands. No aphasia and no neglect. Cranial nerves: The pupils are round, equal and reactive to light and accommodation. Visual valadez are full to confrontation throughout. Extraocular movement is intact no nystagmus is noted. Facial sensation is normal to touch throughout. The facial strength is normal throughout. Hearing is normal bilaterally to hand rub. Tongue is midline and moved [id number] without any difficulty. No dysarthria is noted. Shoulder shrug is normal bilaterally. Motor: The strength is 5 over 5 throughout. Normal tone and bulk. Cerebellum: Normal finger to nose heel to resendiz bilaterally. Sensation: Sensation is normal to touch throughout. Reflexes (right/left): 2+ throughout. Plantars are downgoing bilaterally. Results - Laboratory Findings CBC and BMP: 09/22/22 11:53 09/22/22 11:53 Abnormal Lab Findings: Abnormal Labs 09/22/22 09/22/22 11:53 11:53 Plt Count 137 L Sodium 136 L Glucose 141 H AST 40 H ALT 42 H Assessment and Plan Assessment: Acute vertigo with Nausea: Rule out acute posterior circulation stroke vs peripheral cause History of large right cerebellar stroke and small focus over the right occipital (about 3 weeks ago). Unlikely due to carotid stenosis since give more anterior circulation stroke than posterior Carotid stenosis (left is 70% and right is 50-69% on CTA but less on carotid duplex). 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 I also ordered MRI of the brain to rule out any new additional new stroke. In meantime, continue ASA 81mg daily, Brilinta 90mg 1tab bid and Lipitor 80mg qhs for secondary stroke prophylaxis. Started Antivert 12.5mg 1 tab QID PRN. Lipid panel is ordered and pending. Patient had recent 2decho and CHRISTOPHER and was normal. Recommend limited 2Decho if she does have acute stroke. PT, OT and [employer] are consulted. Continue neuro checks. Placed on cardiac monitoring. Keep permissive hypertension for 24-48 hours for now. Patient has coming up appointment with vascular surgery team and interventional neurology team as outpatient. Will defer the rest of medical management to primary team. For DVT prophylaxis: started on subq heparin 5000U every 8 hours. If MRI Brain is negative for stroke then patient is clear for discharge from neurological perspective.. Thank you for the consultation Walker Rahman M.D. Neuro-Hospitalist Time with Patient: Greater than 30
[2022-09-22] MEDS ORDERED: ACETAMINOPHEN TAB 325 MG TAB PO PRN (16:20)
[2022-09-22] MEDS ORDERED: MECLIZINE 25 MG TAB PO PRN (16:20)
--- NOTE | 2022-09-22 16:25 | CT ---
EXAMINATION TYPE: CT angio head neck DATE OF EXAM: 09/22/2022 COMPARISON: 09/10/2022 HISTORY: cva CT DLP: 496.9 mGycm CONTRAST: Performed with IV Contrast, patient injected with 65cc mL of Isovue 370. Combination Contrast CTA cervical carotids and [place] CTA cervical carotids with 3-D recons truction Contrast CTA of the cervical carotids was performed 3-D reconstruction imaging obtained at a separate workstation. Right carotid system: Mild plaque is seen of the right common carotid artery. There is mild to moder ate plaque also noted at the carotid bulb and proximal ICA. Diameter reduction estimated at 50-60%. ECA is patent. Right vertebral artery appears unremarkable. Left carotid system: Mild plaque is seen of the left common carotid artery. There is moderate plaque also noted at the carotid bulb and proximal ICA. Immediate and reduction of 70%. ECA is patent. Le ft vertebral artery appears unremarkable. IMPRESSION: 1. No significant diameter reduction to account for the patient's symptoms. CTA [place] with 3-D reconstruction Contrast CTA of the [place] was performed 3-D reconstruction imaging obtained at a separate workstation. The intracranial portions of the internal carotid arteries and their major tributaries are patent. Th e vertebral arteries are not visualized. Basilar artery appears to be diminutive. No change in appear ance from prior study. Diminutive right superior cerebellar artery is redemonstrated. Inferior cerebe llar artery is not well seen. I do not see evidence for sizable aneurysm or vascular malformation. P lease note MRI provides greater sensitivity and specificity. Visualized brain appears grossly unrema rkable. IMPRESSION: 1. Stable evaluation of the intracranial vasculature. Diminutive right superior cerebellar artery and inferior cerebellar artery as noted. NASCET criteria was used in interpretation of this exam?
--- NOTE | 2022-09-22 16:28 | P.HPIM ---
History of Present Illness Patient is a pleasant 61-year-old female was admitted couple weeks ago for similar stroke symptoms and patient can you to have symptoms of some ataxia and generalized weakness and small stepping gait which didn't improve yet but slowly improving at this time. Patient comes in with symptoms of frontal headache blurry vision and vertigo which started last night to all of which resolved at this time. Patient did take meclizine. Patient is concerned that she has another stroke. Patient was extensively evaluated during her last hospitalization with a carotid Doppler which showed 70% stenosis in the right side 50-69 on the left side. Patient is undergoing repeat CTA of now. 6 CT of the head did not show any significant abnormality. Neurology evaluated the patient the recommending repeat the MRI for recurrent stroke. Patient is already on dual antiplatelet therapy and high-dose statin at this time. Patient had a CHRISTOPHER as well during her last auscultation which was within normal limits. Patient is supposed to see vascular surgery as an outpatient which is scheduled for next week. REVIEW OF SYSTEMS: CONSTITUTIONAL: No fever, no malaise, no fatigue. HEENT: No recent visual problems or hearing problems. Denied any sore throat. CARDIOVASCULAR: No chest pain, orthopnea, PND, no palpitations, no syncope. PULMONARY: No shortness of breath, no cough, no hemoptysis. GASTROINTESTINAL: No diarrhea, no nausea, no vomiting, no abdominal pain. NEUROLOGICAL: As mentioned in HPI HEMATOLOGICAL: Denies any bleeding or petechiae. GENITOURINARY: Denies any burning micturition, frequency, or urgency. MUSCULOSKELETAL/RHEUMATOLOGICAL: Denies any joint pain, swelling, or any muscle pain. ENDOCRINE: Denies any polyuria or polydipsia. The rest of the 14-point review of systems is negative. PHYSICAL EXAMINATION: GENERAL: The patient is alert and oriented x3, not in any acute distress. Well developed, well nourished. HEENT: Pupils are round and equally reacting to light. EOMI. No scleral icterus. No conjunctival pallor. Normocephalic, atraumatic. No pharyngeal erythema. No thyromegaly. CARDIOVASCULAR: S1 and S2 present. No murmurs, rubs, or gallops. PULMONARY: Chest is clear to auscultation, no wheezing or crackles. ABDOMEN: Soft, nontender, nondistended, normoactive bowel sounds. No palpable organomegaly. MUSCULOSKELETAL: No joint swelling or deformity. EXTREMITIES: No cyanosis, clubbing, or pedal edema. NEUROLOGICAL: Patient still has a small stepping gait and ataxia and positive Romberg sign with eyes open although these findings are not new SKIN: No rashes. Assessment and plan -Dizziness and nausea: Rule out the posterior separation stroke repeat MRI continue dual antiplatelet therapy and statin neurology evaluated the patient patient is undergoing CT angiogram as well -Hypertension -coronary artery disease -Hypertension -Mildly elevated liver enzymes nonspecific elevation since it's only minimal elevation I'll repeat liver enzymes again tomorrow. DVT prophylaxis: Early ambulation Past Medical History Past Medical History: COPD, CVA/TIA, Deep Vein Thrombosis (DVT), GERD/Reflux, Hypertension, Myocardial Infarction ([place]), Pneumonia, Vascular Disorder Additional Past Medical History / Comment(s): Previous history of gastric bypass surgery for obesity, remote history of a right lower extremity DVT 1996, pe ripheral vascular disease with previous angioplasty, restless leg syndrome, iron deficiency, COPD, Last Myocardial Infarction Date:: 10/2014 History of Any Multi-Drug Resistant Organisms: MRSA Date of last positivie culture/infection: 2000 MDRO Source:: abdominal wound Past Surgical History: Appendectomy, Bariatric Surgery, Breast Surgery, Cholecystectomy, Heart Catheterization, Hysterectomy, Orthopedic Surgery Additional Past Surgical History / Comment(s): Gastric bypass and subsequent multiple surgeries d/t incision did not heal properly and bowel was nicked, exploratory laparotomies, bilateral fem/pop bypass/stents, recent L wrist fracture with sx/hardware, bilateral feet bunionectomies, L rotator cuff repair, L knee arthroscopy, L breast benign bx, EGD, colonoscopies/benign polypectomy, right collar bone, Past Anesthesia/Blood Transfusion Reactions: No Reported Reaction Past Psychological History: Anxiety, Panic Disorder Smoking Status: Former smoker Past Alcohol Use History: Occasional Past Drug Use History: None Reported - Past Family History Father Family Medical History: CVA/TIA, Pneumonia Additional Family Medical History / Comment(s): STROKE AT AGE 50. Father of pne at the age of 63 yrs. Mother Family Medical History: No Reported History Additional Family Medical History / Comment(s): Mother is healthy and 83 yrs old. Medications and Allergies Home Medications Medication Instructions Recorded Confirmed Type Metoprolol Succinate (ER) [Toprol 25 mg PO DAILY 09/25/17 09/22/22 History XL] estradioL [Estrace] 0.5 mg PO DAILY 09/25/17 09/22/22 History Sertraline [Zoloft] 150 mg PO DAILY #30 tab 02/13/20 09/22/22 Rx ALPRAZolam [Xanax] 1 mg PO DAILY 08/07/20 09/22/22 History ARIPiprazole 5 mg PO DAILY 08/07/20 09/22/22 History Temazepam 30 mg PO HS 07/08/21 09/22/22 History rOPINIRole HCL [Requip] 2 mg PO HS 09/10/22 09/22/22 History Acetaminophen Tab [Tylenol] 650 mg PO Q6HR PRN tab 09/13/22 09/22/22 Rx Aspirin 81 mg PO DAILY #30 tab 09/13/22 09/22/22 Rx Atorvastatin [Lipitor] 80 mg PO HS #30 tab 09/13/22 09/22/22 Rx Meclizine [Antivert] 25 mg PO QID PRN #20 tab 09/13/22 09/22/22 Rx Ticagrelor [Brilinta] 90 mg PO BID #60 tab 09/13/22 09/22/22 Rx lisinopriL [Zestril] 10 mg PO DAILY #30 tab 09/13/22 09/22/22 Rx Clopidogrel [Plavix] 75 mg PO DIRECTED 09/22/22 09/22/22 History Furosemide [Lasix] 20 mg PO DAILY 09/22/22 09/22/22 History Allergies Allergy/AdvReac Type Severity Reaction Status Date / Time No Known Allergies Allergy Verified 09/22/22 13:15 Physical Exam Vitals: Vital Signs Temp Pulse Resp BP Pulse Ox 09/22/22 11:38 97.9 F 58 L 16 136/67 98 Intake and Output 09/22/22 09/22/22 09/22/22 06:59 14:59 22:59 Other: Weight 83.461 kg Results CBC & Chem 7: 09/22/22 11:53 09/22/22 11:53 Labs: Abnormal Lab Results - Last 24 Hours (Table) 09/22/22 09/22/22 Range/Units 11:53 11:53 Plt Count 137 L (150-450) k/uL Sodium 136 L (137-145) mmol/L Glucose 141 H (74-99) mg/dL AST 40 H (14-36) U/L ALT 42 H (4-34) U/L
[2022-09-22] MEDS: HEPARIN SODIUM,PORCINE/PF 5,000 UNIT/0.5 ML SYRINGE SQ SCH ×2 (19:35→23:27)
[2022-09-22] MEDS ORDERED: ATORVASTATIN 80 MG TAB PO SCH (21:00)
[2022-09-22] MEDS ORDERED: TEMAZEPAM 30 MG CAP PO SCH (21:00)
[2022-09-22] MEDS: TICAGRELOR 90 MG TAB PO SCH (22:26)
[2022-09-22] MEDS ORDERED: TEMAZEPAM 15 MG CAP PO ONE (23:00)
[2022-09-23] MEDS: TICAGRELOR 90 MG TAB PO SCH (07:57)
[2022-09-23] MEDS: HEPARIN SODIUM,PORCINE/PF 5,000 UNIT/0.5 ML SYRINGE SQ SCH (07:58)
[2022-09-23] MEDS ORDERED: ASPIRIN 325 MG TAB PO SCH (09:00)
[2022-09-23] MEDS ORDERED: ASPIRIN 81 MG PO SCH (09:00)
[2022-09-23] MEDS ORDERED: ARIPiprazole 5 MG TAB PO SCH (09:00)
[2022-09-23] MEDS ORDERED: SERTRALINE 50 MG TAB PO SCH (09:00)
[2022-09-23] MEDS ORDERED: METOPROLOL SUCCINATE (ER) 25 MG TAB.ER.24H PO SCH (09:00)
[2022-09-23 09:21] LABS: ALT 39 U/L (4-34); AST 40 U/L (14-36); African American GFR (CKD) 76 (>60 ml/min/1.73 sqM); Albumin 4.5 g/dL (3.5-5.0); Alkaline Phosphatase 125 U/L (38-126); Anion Gap 14 mmol/L; Blood Urea Nitrogen 13 mg/dL (7-17); Calcium 8.6 mg/dL (8.4-10.2); Carbon Dioxide 17 mmol/L (22-30); Chloride 108 mmol/L (98-107); Glucose 106 mg/dL (74-99); Non-African American GFR(CKD) 66 (>60 ml/min/1.73 sqM); Potassium 4.3 mmol/L (3.5-5.1); Sodium 139 mmol/L (137-145); Total Bilirubin 0.8 mg/dL (0.2-1.3); Total Protein 6.8 g/dL (6.3-8.2)
[2022-09-23 10:25] VITALS: TEMP 97.4
[2022-09-23 11:10] VITALS: BP 141/61; PULSE 51; RESP 17
--- NOTE | 2022-09-23 11:11 | MR ---
MR brain without contrast HISTORY: Posterior circulation stroke Multiplanar multisequence imaging obtained through the brain, correlation to prior brain MRI 09/10/20, CT brain 09/22/2022 There is improvement in the previously identified restricted diffusion along the medial aspect of the right cerebellar hemisphere, some residual hyperintensities identified and inversion recovery T2-angie ghted sequences in this distribution which is diminished in size. White matter signal changes show st able appearance compared to prior brain MRI. There is no hemorrhage or hydrocephalus. Cortical atroph y is noted. Cerebellopontine angles, corpus callosum, pituitary, cervical medullary junction are unch anged. There are expected vascular flow voids. Mild mucosal disease present in the ethmoid air cells. Orbits show symmetric appearance. IMPRESSION: Improvement in patient's right cerebellar subacute infarct of prior exam. Age-related atr ophy and probable chronic small vessel ischemic changes are also noted.
--- NOTE | 2022-09-23 11:52 | P.DS ---
Providers Date of admission: 09/22/22 14:08 Attending physician: Jamila Moran Consults: 09/22/22 14:16 Consult Physician Urgent Consulting Provider: Walker Rahman Consult Reason/Comments: CVA Do you want consulting provider notified?: Yes Primary care physician: Annika Ratliff [facility] Course: Patient is a pleasant 61-year-old female was admitted couple weeks ago for similar stroke symptoms and patient can you to have symptoms of some ataxia and generalized weakness and small stepping gait which didn't improve yet but slowly improving at this time. Patient comes in with symptoms of frontal headache blurry vision and vertigo which started last night to all of which resolved at this time. Patient did take meclizine. Patient is concerned that she has another stroke. Patient was extensively evaluated during her last hospitalization with a carotid Doppler which showed 70% stenosis in the right side 50-69 on the left side. Patient is undergoing repeat CTA of now. 6 CT of the head did not show any significant abnormality. Neurology evaluated the patient the recommending repeat the MRI for recurrent stroke. Patient is already on dual antiplatelet therapy and high-dose statin at this time. Patient had a CHRISTOPHER as well during her last auscultation which was within normal limits. Patient is supposed to see vascular surgery as an outpatient which is scheduled for next week. 09/23/2022 Patient had an MRI of the brain which did not show new stroke patient has improvement in her previous cerebral or lesion. Patient will be discharged and follow-up with vascular surgery and PCP as an outpatient. No medication changes are being made at this time PHYSICAL EXAMINATION: GENERAL: The patient is alert and oriented x3, not in any acute distress. Well developed, well nourished. HEENT: Pupils are round and equally reacting to light. EOMI. No scleral icterus. No conjunctival pallor. Normocephalic, atraumatic. No pharyngeal erythema. No thyromegaly. CARDIOVASCULAR: S1 and S2 present. No murmurs, rubs, or gallops. PULMONARY: Chest is clear to auscultation, no wheezing or crackles. ABDOMEN: Soft, nontender, nondistended, normoactive bowel sounds. No palpable organomegaly. MUSCULOSKELETAL: No joint swelling or deformity. EXTREMITIES: No cyanosis, clubbing, or pedal edema. NEUROLOGICAL: Patient still has a small stepping gait and ataxia and positive Romberg sign with eyes open although these findings are not new SKIN: No rashes. Assessment and plan -Dizziness and nausea: Rule out the posterior circulation stroke repeat MRI not show any new stroke continue dual antiplatelet therapy and statin neurology evaluated the patient patient will continue her home medications -Hypertension -coronary artery disease -Hypertension -Mildly elevated liver enzymes nonspecific elevation they remained stable compared to yesterday Plan - Discharge Summary Discharge Rx Participant: Yes New Discharge Prescriptions: Continue Metoprolol Succinate (ER) [Toprol XL] 25 mg PO DAILY estradioL [Estrace] 0.5 mg PO DAILY Sertraline [Zoloft] 150 mg PO DAILY #30 tab ARIPiprazole 5 mg PO DAILY ALPRAZolam [Xanax] 1 mg PO DAILY Meclizine [Antivert] 25 mg PO QID PRN #20 tab PRN Reason: Vertigo Ticagrelor [Brilinta] 90 mg PO BID #60 tab Atorvastatin [Lipitor] 80 mg PO HS #30 tab lisinopriL [Zestril] 10 mg PO DAILY #30 tab Temazepam 30 mg PO HS rOPINIRole HCL [Requip] 2 mg PO HS Aspirin 81 mg PO DAILY #30 tab Acetaminophen Tab [Tylenol] 650 mg PO Q6HR PRN tab PRN Reason: Fever And/ Or Pain Furosemide [Lasix] 20 mg PO DAILY Discontinued Clopidogrel [Plavix] 75 mg PO DIRECTED Discharge Medication List Metoprolol Succinate (ER) [Toprol XL] 25 mg PO DAILY 09/25/17 [History] estradioL [Estrace] 0.5 mg PO DAILY 09/25/17 [History] Sertraline [Zoloft] 150 mg PO DAILY #30 tab 02/13/20 [Rx] ALPRAZolam [Xanax] 1 mg PO DAILY 08/07/20 [History] ARIPiprazole 5 mg PO DAILY 08/07/20 [History] Temazepam 30 mg PO HS 07/08/21 [History] rOPINIRole HCL [Requip] 2 mg PO HS 09/10/22 [History] Acetaminophen Tab [Tylenol] 650 mg PO Q6HR PRN tab 09/13/22 [Rx] Aspirin 81 mg PO DAILY #30 tab 09/13/22 [Rx] Atorvastatin [Lipitor] 80 mg PO HS #30 tab 09/13/22 [Rx] Meclizine [Antivert] 25 mg PO QID PRN #20 tab 09/13/22 [Rx] Ticagrelor [Brilinta] 90 mg PO BID #60 tab 09/13/22 [Rx] lisinopriL [Zestril] 10 mg PO DAILY #30 tab 09/13/22 [Rx] Furosemide [Lasix] 20 mg PO DAILY 09/22/22 [History] Follow up Appointment(s)/Referral(s): Parmjit Roblero MD [Primary Care Provider] - 3 Days Discharge Disposition: HOME WITH HOME HEALTH SERVICES
[2022-09-23] MEDS ORDERED: INFLUENZA VACC HIGH-DOSE (65+) 240 MCG/0.7 ML SYRINGE IM ONE (12:19)
--- NOTE | 2022-09-23 12:45 | P.PN ---
Subjective Progress Note Date: 09/23/22 The patient is seen today and feel drastically better. Denies of any new neurological issues. Feels her dizziness is improving. Objective - Vital Signs Vital signs: Vital Signs Temp 97.4 F L 09/23/22 08:00 Pulse 51 L 09/23/22 11:09 Resp 17 09/23/22 11:09 BP 141/61 09/23/22 11:09 Pulse Ox 100 09/23/22 11:09 FiO2 Intake & Output 09/22/22 09/23/22 09/23/22 18:59 06:59 18:59 Intake Total 240 0 Balance 240 0 Weight 83.461 kg 88.6 kg Intake: Oral 240 0 Other: Voiding Method Toilet Toilet # Voids 2 - Exam GENERAL: The patient is lying in bed and is not in acute distress. NEUROLOGICAL: Higher mental function: The patient is awake, alert, oriented to self, place and time. Patient is following commands. No aphasia and no neglect. Cranial nerves: The pupils are round, equal and reactive to light and accommoda tion. Visual valadez are full to confrontation throughout. Extraocular movement is intact no nystagmus is noted. Facial sensation is normal to touch throughout. The facial strength is normal throughout. Hearing is normal bilaterally to hand rub. Tongue is midline and moved [id number] without any difficulty. No dysarthria is noted. Shoulder shrug is normal bilaterally. Motor: The strength is 5 over 5 throughout. Normal tone and bulk. Cerebellum: Normal finger to nose heel to resendiz bilaterally. Sensation: Sensation is normal to touch throughout. Reflexes (right/left): 2+ throughout. Plantars are downgoing bilaterally. SOME OF THE WORK-UP DURING THIS HOSPITAL VISIT CONSISTED OF: CT of the head is reported as age-related atrophy and chronic small vessel ischemic changes without acute intracranial process seen at this time. I personally reviewed the CT of head and I do not appreciate any acute or subacute changes that is new compared to the old. I do see the old the changes over the right cerebellar. CT angiography of the head and neck was reported as stable evaluation of the intracranial vasculature. Diminutive right cerebellar artery and inferior cerebellar artery as noted. MRI of the brain is reported as improvement in patient's right cerebellar subacu te infarct of prior exam. Acute related atrophy and probable chronic small vessel ischemic changes also noted. I personally reviewed the MRI and there is no acute or subacute ischemic stroke. - Labs CBC & Chem 7: 09/22/22 11:53 09/23/22 08:11 Labs: Abnormal Lab Results - Last 24 Hours (Table) 09/23/22 Range/Units 08:11 Chloride 108 H (98-107) mmol/L Carbon Dioxide 17 L (22-30) mmol/L Glucose 106 H (74-99) mg/dL AST 40 H (14-36) U/L ALT 39 H (4-34) U/L Assessment and Plan Assessment: Acute vertigo with Nausea: No acute or subacute ischemic stroke. ---symptoms improving. History of large right cerebellar stroke and small focus over the right occipital (about 3 weeks ago). Unlikely due to carotid stenosis since give more anterior circulation stroke than posterior Carotid stenosis (left is 70% and right is 50-69% on CTA but less on carotid duplex). 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 On Antivert 12.5mg 1 tab QID PRN. No need for repeat 2D echo since had recent 2D echo and also does not have acute or subacute ischemic stroke. PT, OT and [facility]AK[facility] HELPER are consulted. Continue neuro checks. Placed on cardiac monitoring. Patient has coming up appointment with vascular surgery team. She will call interventional neurology team (Dr. Ashford) as outpatient for further evaluation of diminutive peripheral vasculature. Will defer the rest of medical management to primary team. For DVT prophylaxis: started on subq heparin 5000U every 8 hours. Patient is clear for discharge from neurological perspective. Walker Rahman M.D. Neuro-Hospitalist Time with Patient: Less than 30
[2022-09-23 15:35] LABS: Chol/HDL Ratio 2.06 Ratio; LDL Cholesterol,Calculated 61.1 mg/dL (0.0-131.0); VLDL Calculation 16.74 mg/dL (5.00-40.00)
[2022-09-23] MEDS ORDERED: TEMAZEPAM 30 MG CAP PO SCH (21:00)
== END 2022-09-23 14:28 | disposition home health service (06) ==
LOC: EC 11:35 → 3SCARD 14:08 → INTOOBSV 14:08 → 3SCARD 15:51 → UNDODISIN 09-23 14:28
PROVIDERS: ADMIT Internal Medicine; ATTEND Internal Medicine
DX: R42 Dizziness and giddiness (principal); R11.0 Nausea; R51.9 Headache, unspecified; I65.22 Occlusion and stenosis of left carotid artery; I10 Essential (primary) hypertension; I25.10 Atherosclerotic heart disease of native coronary artery without angina pectoris; I49.3 Ventricular premature depolarization; J44.9 Chronic obstructive pulmonary disease, unspecified; K21.9 Gastro-esophageal reflux disease without esophagitis; I73.9 Peripheral vascular disease, unspecified; G25.81 Restless legs syndrome; R74.8 Abnormal levels of other serum enzymes; I25.2 Old myocardial infarction; E61.1 Iron deficiency; F41.0 Panic disorder [episodic paroxysmal anxiety]; F41.9 Anxiety disorder, unspecified; H53.8 Other visual disturbances; Z79.02 Long term (current) use of antithrombotics/antiplatelets; Z79.82 Long term (current) use of aspirin; Z79.899 Other long term (current) drug therapy; Z86.14 Personal history of Methicillin resistant Staphylococcus aureus infection; Z23 Encounter for immunization; Z95.820 Peripheral vascular angioplasty status with implants and grafts; Z98.84 Bariatric surgery status; Z87.01 Personal history of pneumonia (recurrent); Z86.718 Personal history of other venous thrombosis and embolism; Z86.73 Personal history of transient ischemic attack (TIA), and cerebral infarction without residual deficits; Z90.49 Acquired absence of other specified parts of digestive tract; Z90.710 Acquired absence of both cervix and uterus; Z87.891 Personal history of nicotine dependence; Z86.010 Personal history of colon polyps; Z98.890 Other specified postprocedural states; Z82.3 Family history of stroke; Z82.5 Family history of asthma and other chronic lower respiratory diseases
CPT/HCPCS: 96372 ×3; 96360; 99285; 36415; 93005; 97162; 80061; 80053 ×2; 84484; 85025; 85610; 85730; 71046; 70496; 70450; 70498; 70551; 90662; G0378 ×2; G0008; Q9967; J1644 ×2; 96361; 96374

== ENCOUNTER 2022-10-22 11:52 | Emergency (ER) | payer MEDICARE ==
[2022-10-22 12:07] VITALS: TEMP 97.4
[2022-10-22] MEDS ORDERED: KETOROLAC 15 MG/ML 1 ML VIAL IVP STA (13:35)
[2022-10-22] MEDS ORDERED: SODIUM CHLORIDE 0.9% 1,000 ML IV STA (13:35)
[2022-10-22] MEDS ORDERED: PANTOPRAZOLE 40 MG/10 ML VIAL IVP STA (13:35)
[2022-10-22] MEDS ORDERED: ONDANSETRON 4 MG/2 ML VIAL IVP STA (13:35)
[2022-10-22 14:45] LABS: Basophils % (A) 0 %; Eosinophils # (A) 0.1 k/uL (0-0.7); Eosinophils % (A) 2 %; HCT 39.7 % (34.0-46.0); Lymphocytes # (A) 1.1 k/uL (1.0-4.8); Lymphocytes % (A) 24 %; MCH 31.4 pg (25.0-35.0); MCHC 35.2 g/dL (31.0-37.0); Mean Platelet Volume 8.8; Monocytes # (A) 0.2 k/uL (0-1.0); Monocytes % (A) 4 %; Neutrophils # (A) 3.1 k/uL (1.3-7.7); Neutrophils % (A) 70 %; Platelet Count 119 k/uL (150-450); RBC 4.45 m/uL (3.80-5.40); RDW 12.1 % (11.5-15.5); WBC 4.4 k/uL (3.8-10.6)
[2022-10-22 14:51] LABS: Appearance,Urine Clear (Clear); Bilirubin,Urine Negative (Negative); Blood,Urine Negative (Negative); Color,Urine Colorless; Glucose,Urine (UA) Negative (Negative); Ketones,Urine Negative (Negative); Leukocyte Esterase,Urine Negative (Negative); Nitrite,Urine Negative (Negative); Protein,Urine Negative (Negative); Specific Gravity,Urine 1.005 (1.001-1.035); Urobilinogen,Urine <2.0 mg/dL (<2.0)
[2022-10-22 14:58] LABS: INR 0.9 (<1.2); Partial Thromboplastin Time 25.1 sec (22.0-30.0); Prothrombin Time 10.4 sec (9.0-12.0)
[2022-10-22 15:08] LABS: Albumin 4.8 g/dL (3.5-5.0); Calcium 8.7 mg/dL (8.4-10.2); Potassium 4.4 mmol/L (3.5-5.1); Total Bilirubin 0.8 mg/dL (0.2-1.3); Total Protein 7.2 g/dL (6.3-8.2)
--- NOTE | 2022-10-22 15:22 | ED ---
General Adult HPI - General Chief complaint: Back Pain/Injury Stated complaint: mass on back, pain Time Seen by Provider: 10/22/22 13:25 Source: patient, RN notes reviewed, old records reviewed Mode of arrival: ambulatory Limitations: no limitations - History of Present Illness Initial comments: Patient is a 67-year-old female with past medical history remarkable for COPD, CVA with no residual deficits, hypertension who presents emergency Department c omplaining of right-sided back and flank pain. Pain started yesterday. Denies any associated dysuria or hematuria. Endorses chronic diarrhea. No blood in her stool. Endorses nausea but no episodes of emesis. Denies any fevers, chills, cough, shortness of breath, chest pain. Denies any headaches, weakness, numbness. She presents emergency department for further evaluation regarding the pain. Describes it as an achy, sharp sensation that radiates from her right upper back around the right flank. Pain does radiate to the right upper and right lower quadrants. Presents for further evaluation at this time. - Related Data Home Medications Medication Instructions Recorded Confirmed estradioL [Estrace] 0.5 mg PO DAILY 09/25/17 10/22/22 ALPRAZolam [Xanax] 1 mg PO DAILY 08/07/20 10/22/22 ARIPiprazole 5 mg PO DAILY 08/07/20 10/22/22 rOPINIRole HCL [Requip] 2 mg PO HS 09/10/22 10/22/22 Furosemide [Lasix] 20 mg PO DAILY 09/22/22 10/22/22 Apixaban [Eliquis] 5 mg PO BID 10/22/22 10/22/22 Temazepam [Restoril] 15 mg PO HS 10/22/22 10/22/22 Previous Rx's Medication Instructions Recorded Sertraline [Zoloft] 150 mg PO DAILY #30 tab 02/13/20 Aspirin 81 mg PO DAILY #30 tab 09/13/22 Atorvastatin [Lipitor] 80 mg PO HS #30 tab 09/13/22 lisinopriL [Zestril] 10 mg PO DAILY #30 tab 09/13/22 methocarbamoL [Robaxin] 500 mg PO BID PRN 7 Days #14 tab 10/22/22 Allergies Allergy/AdvReac Type Severity Reaction Status Date / Time No Known Allergies Allergy Verified 11/23/22 16:08 Review of Systems ROS Statement: Those systems with pertinent positive or pertinent negative responses have been documented in the HPI. Review of Systems: CONST: Denies fever EYES: Denies blurry vision ENT: Denies nasal congestion C/V: Denies Chest pain RESP: Denies shortness of breath GI: Endorses back pain, right flank pain. : Denies dysuria SKIN: Denies rash. MSK: Denies joint pain. NEURO: Denies headache ROS Other: All systems not noted in ROS Statement are negative. Past Medical History Past Medical History: COPD, CVA/TIA, Deep Vein Thrombosis (DVT), GERD/Reflux, Hypertension, Myocardial Infarction ([place]), Pneumonia, Vascular Disorder Additional Past Medical History / Comment(s): Previous history of gastric bypass surgery for obesity, remote history of a right lower extremity DVT 1996, peripheral vascular disease with previous angioplasty, restless leg syndrome, iron deficiency, COPD, adrenal gland mass Last Myocardial Infarction Date:: 10/2014 History of Any Multi-Drug Resistant Organisms: MRSA Date of last positivie culture/infection: 2000 MDRO Source:: abdominal wound Past Surgical History: Appendectomy, Bariatric Surgery, Breast Surgery, Cholecystectomy, Heart Catheterization, Hysterectomy, Orthopedic Surgery Additional Past Surgical History / Comment(s): Gastric bypass and subsequent multiple surgeries d/t incision did not heal properly and bowel was nicked, exploratory laparotomies, bilateral fem/pop bypass/stents, recent L wrist fracture with sx/hardware, bilateral feet bunionectomies, L rotator cuff repair, L knee arthroscopy, L breast benign bx, EGD, colonoscopies/benign polypectomy, right collar bone, Past Anesthesia/Blood Transfusion Reactions: No Reported Reaction Past Psychological History: Anxiety, Panic Disorder Smoking Status: Former smoker Past Alcohol Use History: Occasional Past Drug Use History: None Reported - Past Family History Father Family Medical History: CVA/TIA, Pneumonia Additional Family Medical History / Comment(s): STROKE AT AGE 50. Father of pne at the age of 63 yrs. Mother Family Medical History: No Reported History Additional Family Medical History / Comment(s): Mother is healthy and 83 yrs old. General Exam - General Exam Comments Initial Comments: General: Appears in mild distress secondary to pain. HEAD: Normal with no signs of head trauma. EYES: PERRLA, EOMI, conjunctiva normal, no discharge. ENT: Hearing grossly intact, normal oropharynx. RESPIRATORY: Clear breath sounds bilaterally. No wheezes, rales, or rhonchi. C/V: Regular rate and rhythm. S1 and S2 auscultated, no edema, peripheral pulses 2+ and intact throughout ABD: Abdomen soft, nondistended. Tenderness to palpation in the right upper quadrant, right CVA with right flank radiation right lower quadrant pain. No guarding. No peritoneal signs. No rebound tenderness. EXT: Normal range of motion, no obvious deformity. No midline cervical, thoracic, lumbar spine tenderness to palpation. Right-sided paraspinal muscle tenderness to palpation particularly at the CVA angle. Seems to radiate around the right flank. SKIN: No rashes or lesions observed on exposed skin. NEURO: Alert and oriented 4. No focal deficits. Limitations: no limitations Course Vital Signs 10/22/22 10/22/22 10/22/22 12:03 14:46 17:56 Temperature 97.4 F L Pulse Rate 61 54 L 57 L Respiratory 14 20 18 Rate Blood Pressure 154/73 123/57 146/68 O2 Sat by Pulse 100 98 96 Oximetry Medical Decision Making - Medical Decision Making Based on the patient's presentation and physical exam, she presents with right- sided back pain with radiation around the right flank. Cannot rule out nephrolithiasis at this time but other intra-abdominal processes are also possible. She does have a history of an adrenal mass on the right side. She is concerned that this may be what is causing her pain. She presents for further workup. Atypical ACS was also be ruled out. We will obtain laboratory studies, start with ultrasound imaging and screening EKG. She was in agreement with this plan. She'll be symptomatically treated at this time as well. Vital signs within acceptable limits. EKG showed no signs of acute ischemia.Patient's laboratory studies are remarkable for slightly elevated AST and ALT of 41 and 52. Alk phos is also slightly elevated to 161. Troponin is undetectable. Urinalysis is within acceptable limits. Covid is negative. The remainder of the laboratory studies are unremarkable except for slight thrombocytopenia which is chronic. Renal ultrasound revealed no abnormalities. KUB x-ray as interpreted by myself reveals no evidence of kidney stone, no bowel obstruction, no free air under the diaphragm. At this time I did recommend that we obtain a CT abdomen and pelvis. She was in agreement this plan. I updated her on her negative workup so far. She is feeling somewhat improved. There was a delay in obtaining CT is they had to obtain an ultrasound IV. CT abdomen and pelvis revealed no obvious intra-abdominal pathology. No evidence of adrenal mass that I or the radiologist could see. No obvious infectious process or obstruction. On reevaluation I did discuss with the patient the negative CT. Patient's pain is reproducible with motion as well as with palpation. I did discuss with her the possibility that this is musculoskeletal pain. She appears to have no obvious acute intra-abdominal process. She expressed understanding. Would like to go home and I believe this is reasonable. Strict return precautions were discussed. I will provide the patient with a prescription for Robaxin. I instructed the patient to follow up with their PCP in the next 1-3 days. I explained that the patient should return to the emergency department if they experience any worsening symptoms. Strict return precautions were discussed with the patient. The patient expressed understanding of these instructions. I answered all questions that the patient had. The patient was discharged home in good co ndition with their prescriptions and follow up information. - Lab Data Result diagrams: 10/22/22 13:42 10/22/22 13:42 Lab Results 10/22/22 10/22/22 10/22/22 Range/Units 13:42 13:42 13:42 WBC 4.4 (3.8-10.6) k/uL RBC 4.45 (3.80-5.40) m/uL Hgb 14.0 (11.4-16.0) gm/dL Hct 39.7 (34.0-46.0) % MCV 89.0 (80.0-100.0) fL MCH 31.4 (25.0-35.0) pg MCHC 35.2 (31.0-37.0) g/dL RDW 12.1 (11.5-15.5) % Plt Count 119 L (150-450) k/uL MPV 8.8 Neutrophils % 70 % Lymphocytes % 24 % Monocytes % 4 % Eosinophils % 2 % Basophils % 0 % Neutrophils # 3.1 (1.3-7.7) k/uL Lymphocytes # 1.1 (1.0-4.8) k/uL Monocytes # 0.2 (0-1.0) k/uL Eosinophils # 0.1 (0-0.7) k/uL Basophils # 0.0 (0-0.2) k/uL PT 10.4 (9.0-12.0) sec INR 0.9 (<1.2) APTT 25.1 (22.0-30.0) sec Sodium (137-145) mmol/L Potassium (3.5-5.1) mmol/L Chloride (98-107) mmol/L Carbon Dioxide (22-30) mmol/L Anion Gap mmol/L BUN (7-17) mg/dL Creatinine (0.52-1.04) mg/dL Est GFR (CKD-EPI)AfAm (>60 ml/min/1.73 sqM) Est GFR (CKD-EPI)NonAf (>60 ml/min/1.73 sqM) Glucose (74-99) mg/dL Plasma Lactic Acid Cristobal (0.7-2.0) mmol/L Calcium (8.4-10.2) mg/dL Total Bilirubin (0.2-1.3) mg/dL AST (14-36) U/L ALT (4-34) U/L Alkaline Phosphatase (38-126) U/L Troponin I (0.000-0.034) ng/mL Total Protein (6.3-8.2) g/dL Albumin (3.5-5.0) g/dL Amylase (30-110) U/L Lipase (23-300) U/L Urine Color Colorless Urine Appearance Clear (Clear) Urine pH 5.0 (5.0-8.0) Ur Specific [place] 1.005 (1.001-1.035) Urine Protein Negative (Negative) Urine Glucose (UA) Negative (Negative) Urine Ketones Negative (Negative) Urine Blood Negative (Negative) Urine Nitrite Negative (Negative) Urine Bilirubin Negative (Negative) Urine Urobilinogen <2.0 (<2.0) mg/dL Ur Leukocyte Esterase Negative (Negative) Coronavirus (PCR) (Not Detectd) 10/22/22 10/22/22 10/22/22 Range/Units 13:42 13:42 13:42 WBC (3.8-10.6) k/uL RBC (3.80-5.40) m/uL Hgb (11.4-16.0) gm/dL Hct (34.0-46.0) % MCV (80.0-100.0) fL MCH (25.0-35.0) pg MCHC (31.0-37.0) g/dL RDW (11.5-15.5) % Plt Count (150-450) k/uL MPV Neutrophils % % Lymphocytes % % Monocytes % % Eosinophils % % Basophils % % Neutrophils # (1.3-7.7) k/uL Lymphocytes # (1.0-4.8) k/uL Monocytes # (0-1.0) k/uL Eosinophils # (0-0.7) k/uL Basophils # (0-0.2) k/uL PT (9.0-12.0) sec INR (<1.2) APTT (22.0-30.0) sec Sodium 137 (137-145) mmol/L Potassium 4.4 (3.5-5.1) mmol/L Chloride 102 (98-107) mmol/L Carbon Dioxide 27 (22-30) mmol/L Anion Gap 8 mmol/L BUN 16 (7-17) mg/dL Creatinine 1.06 H (0.52-1.04) mg/dL Est GFR (CKD-EPI)AfAm 63 (>60 ml/min/1.73 sqM) Est GFR (CKD-EPI)NonAf 54 (>60 ml/min/1.73 sqM) Glucose 110 H (74-99) mg/dL Plasma Lactic Acid Cristobal 0.7 (0.7-2.0) mmol/L Calcium 8.7 (8.4-10.2) mg/dL Total Bilirubin 0.8 (0.2-1.3) mg/dL AST 41 H (14-36) U/L ALT 52 H (4-34) U/L Alkaline Phosphatase 161 H (38-126) U/L Troponin I <0.012 (0.000-0.034) ng/mL Total Protein 7.2 (6.3-8.2) g/dL Albumin 4.8 (3.5-5.0) g/dL Amylase 93 (30-110) U/L Lipase 175 (23-300) U/L Urine Color Urine Appearance (Clear) Urine pH (5.0-8.0) Ur Specific [place] (1.001-1.035) Urine Protein (Negative) Urine Glucose (UA) (Negative) Urine Ketones (Negative) Urine Blood (Negative) Urine Nitrite (Negative) Urine Bilirubin (Negative) Urine Urobilinogen (<2.0) mg/dL Ur Leukocyte Esterase (Negative) Coronavirus (PCR) (Not Detectd) 10/22/22 Range/Units 13:42 WBC (3.8-10.6) k/uL RBC (3.80-5.40) m/uL Hgb (11.4-16.0) gm/dL Hct (34.0-46.0) % MCV (80.0-100.0) fL MCH (25.0-35.0) pg MCHC (31.0-37.0) g/dL RDW (11.5-15.5) % Plt Count (150-450) k/uL MPV Neutrophils % % Lymphocytes % % Monocytes % % Eosinophils % % Basophils % % Neutrophils # (1.3-7.7) k/uL Lymphocytes # (1.0-4.8) k/uL Monocytes # (0-1.0) k/uL Eosinophils # (0-0.7) k/uL Basophils # (0-0.2) k/uL PT (9.0-12.0) sec INR (<1.2) APTT (22.0-30.0) sec Sodium (137-145) mmol/L Potassium (3.5-5.1) mmol/L Chloride (98-107) mmol/L Carbon Dioxide (22-30) mmol/L Anion Gap mmol/L BUN (7-17) mg/dL Creatinine (0.52-1.04) mg/dL Est GFR (CKD-EPI)AfAm (>60 ml/min/1.73 sqM) Est GFR (CKD-EPI)NonAf (>60 ml/min/1.73 sqM) Glucose (74-99) mg/dL Plasma Lactic Acid Cristobal (0.7-2.0) mmol/L Calcium (8.4-10.2) mg/dL Total Bilirubin (0.2-1.3) mg/dL AST (14-36) U/L ALT (4-34) U/L Alkaline Phosphatase (38-126) U/L Troponin I (0.000-0.034) ng/mL Total Protein (6.3-8.2) g/dL Albumin (3.5-5.0) g/dL Amylase (30-110) U/L Lipase (23-300) U/L Urine Color Urine Appearance (Clear) Urine pH (5.0-8.0) Ur Specific [place] (1.001-1.035) Urine Protein (Negative) Urine Glucose (UA) (Negative) Urine Ketones (Negative) Urine Blood (Negative) Urine Nitrite (Negative) Urine Bilirubin (Negative) Urine Urobilinogen (<2.0) mg/dL Ur Leukocyte Esterase (Negative) Coronavirus (PCR) Not Detected (Not Detectd) - EKG Data -: EKG Interpreted by Me EKG Comments: 12-lead Electrocardiogram Interpretation Note EKG was reviewed and interpreted by myself. 12-lead ECG performed at 1417 is interpreted by me as revealing normal sinus rhythm at a rate of 52 beats per minute. [place] is normal. PA interval is 160 ms, QRS duration is 83 ms, QTc is 443 ms. There is baseline wandering artifact present which does make interpretation difficult.. There were no obvious acute ST or T wave abnormalities to suggest myocardial ischemia or injury. R wave progression across the precordium was satisfactory. By my interpretation this EKG is non- diagnostic for acute ischemia. When compared with EKG from August 2022, no significant change. Disposition Clinical Impression: Abdominal pain of unknown etiology, Musculoskeletal pain Disposition: HOME SELF-CARE Condition: Good Prescriptions: methocarbamoL [Robaxin] 500 mg PO BID PRN 7 Days #14 tab PRN Reason: Pain Is patient prescribed a controlled substance at d/c from ED?: No Referrals: Parmjit Roblero MD [Primary Care Provider] - 1-2 days Time of Disposition: 17:20
--- NOTE | 2022-10-22 15:22 | US ---
EXAMINATION TYPE: US renals and bladder DATE OF EXAM: 10/22/2022 COMPARISON: NONE CLINICAL HISTORY: rt flank pain. EXAM MEASUREMENTS: Right Kidney: 9.3 x 4.8 x 4.6 cm Left Kidney: 9.5 x 4.6 x 4.6 cm Right Kidney: No hydronephrosis or masses seen Left Kidney: No hydronephrosis or masses seen Bladder: wnl There is no evidence for hydronephrosis at this point in time. No nephrolithiasis is seen. No viviana s are identified. The urinary bladder is anechoic. Bilateral ureteral jets are seen. IMPRESSION: No discrete abnormality seen.
--- NOTE | 2022-10-22 15:23 | XR ---
EXAMINATION TYPE: XR KUB DATE OF EXAM: 10/22/2022 COMPARISON: NONE HISTORY: Pain TECHNIQUE: Single supine KUB image of the abdomen is obtained FINDINGS: Small bowel demonstrates no evidence for dilatation or air fluid levels. Gas and fecal material is seen in non-distended colon. No convincing evidence for pneumoperitoneum. No unusual calcifications. The lung bases are clear. The osseous structures are intact. IMPRESSION: 1. Overall nonobstructive bowel gas pattern.
--- NOTE | 2022-10-22 17:08 | CT ---
EXAMINATION TYPE: CT abdomen pelvis w con DATE OF EXAM: 10/22/2022 COMPARISON: 09/10/2022 HISTORY: Right flank/abdominal pain. CT DLP: 1314 mGycm Automated exposure control for dose reduction was used. CONTRAST: Performed with IV Contrast, patient injected with 80ml mL of Isovue 300. Images obtained from the diaphragm to the floor of the pelvis with the IV contrast. The lung bases are clear of infiltrate. No pleural effusion. Heart size is normal. No pericardial eff usion. There is gastric bariatric surgery. Liver and spleen are intact. No pancreatic mass. The bile ducts are not dilated. There are clips from cholecystectomy. There is no adrenal mass. Kidneys show satisfactory contrast opacification. No hydronephrosis. Ureter s are not dilated. No retroperitoneal adenopathy. No free fluid in the pelvis. No pelvic mass. There is no mesenteric edema. No ascites or free air. No sign of a bowel obstruction. Appendix not se en. No sign thickened appendix. Delayed images show normal renal excretion. No evidence of renal obst ruction. The lumbar vertebrae have normal alignment. No compression fracture. There is vacuum disc at L5-S1 wi th disc space narrowing. The bony pelvis is intact. The hip joints are intact. The sacroiliac joints appear intact. IMPRESSION: No acute abnormality in the abdomen and pelvis. Previous surgery. There is clearing of the subtle hyp odense area in the posterior right lobe of the liver compared to old exams
[2022-10-22 17:58] VITALS: BP 146/68; PULSE 57; RESP 18
== END 2022-10-22 17:58 | disposition home or self-care (01) ==
LOC: EC 11:52
DX: R10.11 Right upper quadrant pain (principal); R10.31 Right lower quadrant pain; J44.9 Chronic obstructive pulmonary disease, unspecified; K21.9 Gastro-esophageal reflux disease without esophagitis; I10 Essential (primary) hypertension; I25.2 Old myocardial infarction; Z86.73 Personal history of transient ischemic attack (TIA), and cerebral infarction without residual deficits; Z20.822 Contact with and (suspected) exposure to COVID-19; Z86.718 Personal history of other venous thrombosis and embolism; Z87.891 Personal history of nicotine dependence; Z90.49 Acquired absence of other specified parts of digestive tract; Z90.89 Acquired absence of other organs; Z98.84 Bariatric surgery status; Z79.01 Long term (current) use of anticoagulants; Z79.899 Other long term (current) drug therapy
CPT/HCPCS: 99284; 96374; 96375; 96361; 36415; 93005; 80053; 82150; 83605; 83690; 84484; 85025; 85610; 85730; 81003; 87635; 74018; 76770; 74177; J2405; J1885; C9113; Q9967

== ENCOUNTER 2023-02-26 20:25 | Emergency (ER) | payer MEDICARE ==
[2023-02-26 20:31] VITALS: TEMP 98.4
[2023-02-26] MEDS ORDERED: ONDANSETRON 4 MG/2 ML VIAL IVP STA ×2 (20:32→20:47)
[2023-02-26] MEDS ORDERED: SODIUM CHLORIDE 0.9% 500 ML 500 ML IV STA (20:47)
--- NOTE | 2023-02-26 21:05 | ED ---
Abdominal Pain HPI - General Chief Complaint: Abdominal Pain Stated Complaint: Nausea Time Seen by Provider: 02/26/23 20:31 Source: patient Mode of arrival: EMS Limitations: no limitations - History of Present Illness MD Complaint: abdominal pain Onset/Timin -: hour(s) Location: diffuse Severity: mild Quality: cramping Consistency: intermittent Improves With: nothing Worsens With: nothing Associated Symptoms: nausea, vomiting - Related Data Home Medications Medication Instructions Recorded Confirmed estradioL [Estrace] 0.5 mg PO DAILY 09/25/17 10/22/22 ALPRAZolam [Xanax] 1 mg PO DAILY 08/07/20 10/22/22 ARIPiprazole 5 mg PO DAILY 08/07/20 10/22/22 rOPINIRole HCL [Requip] 2 mg PO HS 09/10/22 10/22/22 Furosemide [Lasix] 20 mg PO DAILY 09/22/22 10/22/22 Apixaban [Eliquis] 5 mg PO BID 10/22/22 10/22/22 Temazepam [Restoril] 15 mg PO HS 10/22/22 10/22/22 Previous Rx's Medication Instructions Recorded Sertraline [Zoloft] 150 mg PO DAILY #30 tab 02/13/20 Aspirin 81 mg PO DAILY #30 tab 09/13/22 Atorvastatin [Lipitor] 80 mg PO HS #30 tab 09/13/22 lisinopriL [Zestril] 10 mg PO DAILY #30 tab 09/13/22 methocarbamoL [Robaxin] 500 mg PO BID PRN 7 Days #14 tab 10/22/22 Ondansetron Odt [Zofran ODT] 4 mg PO Q8HR PRN #10 tab 02/26/23 Allergies Allergy/AdvReac Type Severity Reaction Status Date / Time No Known Allergies Allergy Verified 10/22/22 16:08 Review of Systems ROS Statement: Those systems with pertinent positive or pertinent negative responses have been documented in the HPI. ROS Other: All systems not noted in ROS Statement are negative. Constitutional: Denies: fever, chills Respiratory: Denies: cough Cardiovascular: Denies: chest pain, palpitations, edema Gastrointestinal: Reports: abdominal pain, nausea, vomiting. Denies: diarrhea, constipation, hematemesis, melena, hematochezia Genitourinary: Denies: dysuria, hematuria Musculoskeletal: Denies: back pain Skin: Denies: rash Neurological: Denies: headache, weakness Past Medical History Past Medical History: COPD, CVA/TIA, Deep Vein Thrombosis (DVT), GERD/Reflux, Hypertension, Myocardial Infarction (NC), Pneumonia, Vascular Disorder Additional Past Medical History / Comment(s): Previous history of gastric bypass surgery for obesity, remote history of a right lower extremity DVT 1996, peripheral vascular disease with previous angioplasty, restless leg syndrome, iron deficiency, COPD, adrenal gland mass Last Myocardial Infarction Date:: 10/2014 History of Any Multi-Drug Resistant Organisms: MRSA Date of last positivie culture/infection: 2000 MDRO Source:: abdominal wound Past Surgical History: Appendectomy, Bariatric Surgery, Breast Surgery, Cholecystectomy, Heart Catheterization, Hysterectomy, Orthopedic Surgery Additional Past Surgical History / Comment(s): Gastric bypass and subsequent multiple surgeries d/t incision did not heal properly and bowel was nicked, exploratory laparotomies, bilateral fem/pop bypass/stents, recent L wrist fracture with sx/hardware, bilateral feet bunionectomies, L rotator cuff repair, L knee arthroscopy, L breast benign bx, EGD, colonoscopies/benign polypectomy, right collar bone, Past Anesthesia/Blood Transfusion Reactions: No Reported Reaction Past Psychological History: Anxiety, Panic Disorder Smoking Status: Former smoker Past Alcohol Use History: Occasional Past Drug Use History: None Reported - Past Family History Father Family Medical History: CVA/TIA, Pneumonia Additional Family Medical History / Comment(s): STROKE AT AGE 50. Father of pne at the age of 63 yrs. Mother Family Medical History: No Reported History Additional Family Medical History / Comment(s): Mother is healthy and 83 yrs old. General Exam Limitations: no limitations General appearance: alert, in no apparent distress Head exam: Present: atraumatic, normocephalic Eye exam: Present: normal appearance. Absent: scleral icterus, conjunctival injection Neck exam: Present: normal inspection Respiratory exam: Present: normal lung sounds bilaterally. Absent: respiratory distress, wheezes, rales, rhonchi, stridor Cardiovascular Exam: Present: regular rate, normal rhythm, normal heart sounds. Absent: systolic murmur, diastolic murmur, rubs, gallop GI/Abdominal exam: Present: soft. Absent: distended, tenderness, guarding, rebound, rigid, mass, pulsatile mass Extremities exam: Present: normal inspection, normal capillary refill. Absent: pedal edema, calf tenderness Back exam: Present: normal inspection. Absent: CVA tenderness (R), CVA tenderness (L) Neurological exam: Present: alert Skin exam: Present: warm, dry, intact, normal color. Absent: rash Course Vital Signs 02/26/23 02/26/23 20:28 23:26 Temperature 98.4 F Pulse Rate 60 52 L Respiratory 14 18 Rate Blood Pressure 124/92 127/64 O2 Sat by Pulse 93 L 98 Oximetry Medical Decision Making - Medical Decision Making This patient is a 67-year-old woman who presents to evaluation for nausea and vomiting that is been going on for most of the day. Patient did have some diffuse abdominal cramping but that has resolved. The patient's workup essentially unremarkable. She did have KUB x-ray which does not show evidence of obstruction or free air as interpreted by myself. On reevaluation, patient feeling better and would like to go home. We discussed appropriate further care and follow-up as well as return parameters. Was pt. sent in by a medical professional or institution (, PA, PLATE CORRECTOR, urgent care, hospital, or [facility]...) When possible be specific @ -[No] Did you speak to anyone other than the patient for history (EMS, parent, family, police, friend...)? What history was obtained from this source @ -[No] Did you review nursing and triage notes (agree or disagree)? Why? @ -[I reviewed and agree with nursing and triage notes] Were old charts reviewed (outside hosp., previous admission, EMS record, old EKG, old radiological studies, urgent care reports/EKG's, [facility] records)? Report findings @ -[No old charts were reviewed] Differential Diagnosis (chest pain, altered mental status, abdominal pain women, abdominal pain men, vaginal bleeding, weakness, fever, dyspnea, syncope, headache, dizziness, GI bleed, back pain, seizure, CVA, palpatations, mental health, musculoskeletal)? @ -[Differential Abdominal Pain Women: Appendicitis, Cholecystitis, diverticulosis, ischemic bowel, pancreatitis, hepatitis, UTI, gastroenteritis, AAA, incarcerated hernia, bowel obstruction, constipation, inflammatory bowel, hepatitis, peptic ulcer disease, splenic infarction, perforated viscus, vulvitis, ovarian torsion, PID, kidney stone, placenta abruption, this is not meant to be an all-inclusive list EKG interpreted by me (3pts min.). @ -[As above] X-rays interpreted by me (1pt min.). @ -[As above CT interpreted by me (1pt min.). @ -[None done] U/S interpreted by me (1pt. min.). @ -[None done] What testing was considered but not performed or refused? (CT, X-rays, U/S, labs)? Why? @ -[None] What meds were considered but not given or refused? Why? @ -[None] Did you discuss the management of the patient with other professionals (professionals i.e. , PA, PLATE CORRECTOR, lab, RT, psych nurse, social organization professor, mud tank operator, teacher, corporate development officer, supervisor case loading)? Give summary @ -[No] Was smoking cessation discussed for >3mins.? @ -[No] Was critical care preformed (if so, how long)? @ -[No] Were there social determinants of health that impacted care today? How? (Homel essness, low income, unemployed, alcoholism, drug addiction, transportation, low edu. Level, literacy, decrease access to med. care, skilled nursing, rehab)? @ -[No] Was there de-escalation of care discussed even if they declined (Discuss DNR or withdrawal of care, Hospice)? DNR status @ -[No] What co-morbidities impacted this encounter? (DM, HTN, Smoking, COPD, CAD, Cancer, CVA, ARF, Chemo, Hep., AIDS, mental health diagnosis, sleep apnea, morbid obesity)? @ -[None] Was patient admitted / discharged? Hospital course, mention meds given and route, prescriptions, significant lab abnormalities, going to OR and other pertinent info. @ -[Discharged Undiagnosed new problem with uncertain prognosis? @ -[No] Drug Therapy requiring intensive monitoring for toxicity (Heparin, Nitro, Insulin, Cardizem)? @ -[No] Were any procedures done? @ -[No] Diagnosis/symptom? @ -[Acute nausea and vomiting, resolved Acute, or Chronic, or Acute on Chronic? @ -[default] Uncomplicated (without systemic symptoms) or Complicated (systemic symptoms)? @ -[Uncomplicated Side effects of treatment? @ -[No] Exacerbation, Progression, or Severe Exacerbation? @ -[No] Poses a threat to life or bodily function? How? (Chest pain, USA, NC, pneumonia, PE, COPD, DKA, ARF, appy, cholecystitis, CVA, Diverticulitis, Homicidal, Suicidal, threat to staff... and all critical care pts) @ -[No] - Lab Data Result diagrams: 02/26/23 21:04 02/26/23 21:04 Lab Results 02/26/23 02/26/23 02/26/23 Range/Units 21:04 21:04 21:04 WBC 6.0 (3.8-10.6) k/uL RBC 4.62 (3.80-5.40) m/uL Hgb 14.4 (11.4-16.0) gm/dL Hct 41.6 (34.0-46.0) % MCV 90.1 (80.0-100.0) fL MCH 31.2 (25.0-35.0) pg MCHC 34.6 (31.0-37.0) g/dL RDW 13.0 (11.5-15.5) % Plt Count 104 L (150-450) k/uL MPV 8.4 Neutrophils % 86 % Lymphocytes % 9 % Monocytes % 3 % Eosinophils % 1 % Basophils % 0 % Neutrophils # 5.2 (1.3-7.7) k/uL Lymphocytes # 0.6 L (1.0-4.8) k/uL Monocytes # 0.2 (0-1.0) k/uL Eosinophils # 0.0 (0-0.7) k/uL Basophils # 0.0 (0-0.2) k/uL Sodium 140 (137-145) mmol/L Potassium 4.5 (3.5-5.1) mmol/L Chloride 109 H (98-107) mmol/L Carbon Dioxide 23 (22-30) mmol/L Anion Gap 8 mmol/L BUN 20 H (7-17) mg/dL Creatinine 0.93 (0.52-1.04) mg/dL Est GFR (CKD-EPI)AfAm 74 (>60 ml/min/1.73 sqM) Est GFR (CKD-EPI)NonAf 64 (>60 ml/min/1.73 sqM) Glucose 188 H (74-99) mg/dL Plasma Lactic Acid Cristobal 1.3 (0.7-2.0) mmol/L Calcium 8.9 (8.4-10.2) mg/dL Total Bilirubin 0.6 (0.2-1.3) mg/dL AST 25 (14-36) U/L ALT 25 (4-34) U/L Alkaline Phosphatase 105 (38-126) U/L Troponin I (0.000-0.034) ng/mL Total Protein 6.9 (6.3-8.2) g/dL Albumin 4.4 (3.5-5.0) g/dL Amylase 91 (30-110) U/L Lipase 97 (23-300) U/L Urine Color Urine Appearance (Clear) Urine pH (5.0-8.0) Ur Specific Bentley (1.001-1.035) Urine Protein (Negative) Urine Glucose (UA) (Negative) Urine Ketones (Negative) Urine Blood (Negative) Urine Nitrite (Negative) Urine Bilirubin (Negative) Urine Urobilinogen (<2.0) mg/dL Ur Leukocyte Esterase (Negative) 02/26/23 02/26/23 Range/Units 21:04 22:20 WBC (3.8-10.6) k/uL RBC (3.80-5.40) m/uL Hgb (11.4-16.0) gm/dL Hct (34.0-46.0) % MCV (80.0-100.0) fL MCH (25.0-35.0) pg MCHC (31.0-37.0) g/dL RDW (11.5-15.5) % Plt Count (150-450) k/uL MPV Neutrophils % % Lymphocytes % % Monocytes % % Eosinophils % % Basophils % % Neutrophils # (1.3-7.7) k/uL Lymphocytes # (1.0-4.8) k/uL Monocytes # (0-1.0) k/uL Eosinophils # (0-0.7) k/uL Basophils # (0-0.2) k/uL Sodium (137-145) mmol/L Potassium (3.5-5.1) mmol/L Chloride (98-107) mmol/L Carbon Dioxide (22-30) mmol/L Anion Gap mmol/L BUN (7-17) mg/dL Creatinine (0.52-1.04) mg/dL Est GFR (CKD-EPI)AfAm (>60 ml/min/1.73 sqM) Est GFR (CKD-EPI)NonAf (>60 ml/min/1.73 sqM) Glucose (74-99) mg/dL Plasma Lactic Acid Cristobal (0.7-2.0) mmol/L Calcium (8.4-10.2) mg/dL Total Bilirubin (0.2-1.3) mg/dL AST (14-36) U/L ALT (4-34) U/L Alkaline Phosphatase (38-126) U/L Troponin I 0.012 (0.000-0.034) ng/mL Total Protein (6.3-8.2) g/dL Albumin (3.5-5.0) g/dL Amylase (30-110) U/L Lipase (23-300) U/L Urine Color Yellow Urine Appearance Clear (Clear) Urine pH 5.0 (5.0-8.0) Ur Specific Bentley 1.017 (1.001-1.035) Urine Protein Negative (Negative) Urine Glucose (UA) Negative (Negative) Urine Ketones Negative (Negative) Urine Blood Negative (Negative) Urine Nitrite Negative (Negative) Urine Bilirubin Negative (Negative) Urine Urobilinogen <2.0 (<2.0) mg/dL Ur Leukocyte Esterase Negative (Negative) - EKG Data -: EKG Interpreted by Or EKG shows normal: sinus rhythm, axis (Normal), intervals (Normal), QRS complexes (Normal) Rate: bradycardia (Rate 57 bpm) Disposition Clinical Impression: Vomiting Disposition: HOME SELF-CARE Condition: Good Instructions (If sedation given, give patient instructions): Acute Nausea and Vomiting (DC) Prescriptions: Ondansetron Odt [Zofran ODT] 4 mg PO Q8HR PRN #10 tab PRN Reason: Nausea Is patient prescribed a controlled substance at d/c from ED?: No Referrals: Kwame Mahoney DO [Primary Care Provider] - 1-2 days
[2023-02-26 21:11] LABS: Basophils % (A) 0 %; Eosinophils % (A) 1 %; HCT 41.6 % (34.0-46.0); HGB 14.4 gm/dL (11.4-16.0); Lymphocytes # (A) 0.6 k/uL (1.0-4.8); Lymphocytes % (A) 9 %; MCH 31.2 pg (25.0-35.0); MCHC 34.6 g/dL (31.0-37.0); MCV 90.1 fL (80.0-100.0); Mean Platelet Volume 8.4; Monocytes # (A) 0.2 k/uL (0-1.0); Monocytes % (A) 3 %; Neutrophils # (A) 5.2 k/uL (1.3-7.7); Neutrophils % (A) 86 %; Platelet Count 104 k/uL (150-450); RBC 4.62 m/uL (3.80-5.40)
--- NOTE | 2023-02-26 21:20 | XR ---
EXAMINATION TYPE: XR KUB DATE OF EXAM: 02/26/2023 9:12 PM CLINICAL HISTORY: Vomiting today TECHNIQUE: 2 upright views COMPARISON: None. FINDINGS: Visualized lung bases and pleural spaces negative for acute findings. Scattered gas is seen in non-distended small bowel loops. Gas and fecal material is seen in non-diste nded colon. There is no visceromegaly, pneumoperitoneum, or abnormal calcification appreciated. Surgical otto are seen over the epigastrium and right mid abdomen. No acute skeletal findings. IMPRESSION: No acute radiographic process.
[2023-02-26 21:27] LABS: Potassium 4.5 mmol/L (3.5-5.1)
[2023-02-26 21:28] LABS: Albumin 4.4 g/dL (3.5-5.0); Calcium 8.9 mg/dL (8.4-10.2); Total Bilirubin 0.6 mg/dL (0.2-1.3); Total Protein 6.9 g/dL (6.3-8.2)
[2023-02-26 23:18] LABS: Appearance,Urine Clear (Clear); Bilirubin,Urine Negative (Negative); Blood,Urine Negative (Negative); Color,Urine Yellow; Glucose,Urine (UA) Negative (Negative); Ketones,Urine Negative (Negative); Leukocyte Esterase,Urine Negative (Negative); Nitrite,Urine Negative (Negative); Protein,Urine Negative (Negative); Specific Gravity,Urine 1.017 (1.001-1.035); Urobilinogen,Urine <2.0 mg/dL (<2.0)
[2023-02-26 23:28] VITALS: BP 127/64; PULSE 52; RESP 18
== END 2023-02-26 23:28 | disposition home or self-care (01) ==
LOC: EC 20:25
DX: R11.2 Nausea with vomiting, unspecified (principal); I10 Essential (primary) hypertension; I25.2 Old myocardial infarction; J44.9 Chronic obstructive pulmonary disease, unspecified; K21.9 Gastro-esophageal reflux disease without esophagitis; F41.0 Panic disorder [episodic paroxysmal anxiety]; E66.9 Obesity, unspecified; Z68.31 Body mass index [BMI] 31.0-31.9, adult; Z79.01 Long term (current) use of anticoagulants; Z79.899 Other long term (current) drug therapy; Z86.718 Personal history of other venous thrombosis and embolism; Z87.891 Personal history of nicotine dependence; Z86.73 Personal history of transient ischemic attack (TIA), and cerebral infarction without residual deficits; Z90.49 Acquired absence of other specified parts of digestive tract; Z98.84 Bariatric surgery status
CPT/HCPCS: 36415; 93005; 80053; 82150; 83605; 83690; 84484; 85025; 81003; 74018; 99285; 96374; J2405

== ENCOUNTER 2023-10-12 09:05 | Emergency (ER) | payer MEDICARE ==
--- NOTE | 2023-10-12 09:24 | ED ---
General Adult HPI - General Chief complaint: GI Bleed Stated complaint: Black stool, ONUR Time Seen by Provider: 10/12/23 09:10 Source: patient, RN notes reviewed, old records reviewed Mode of arrival: ambulatory Limitations: no limitations - History of Present Illness Initial comments: This is a 68-year-old female presents emergency Department with multiple complaints. Patient states her tongue his been tingling in her for about a week. Patient also complains of right sided chest wall pain as well as upper abdominal pain bilaterally. Patient states she's nauseous but hasn't vomited per patient denies any lower abdominal pain patient denies dysuria hematuria urinary frequency. Patient states that she's had diarrhea but she has taken Pepto-Bismol so yesterday she had one black stool today it was not black anymore. Patient denies any fever chills per patient denies headache patient denies numbness weakness. Patient states that she feels very fatigued and that seemed a little worse over the last week. Patient states that problems but ot her than ecchymosis the upper abdominal pain. - Related Data Home Medications Medication Instructions Recorded Confirmed estradioL [Estrace] 0.5 mg PO DAILY 09/25/17 10/12/23 ALPRAZolam [Xanax] 1 mg PO DAILY PRN 08/07/20 10/12/23 rOPINIRole HCL [Requip] 2 mg PO HS 09/10/22 10/12/23 Furosemide [Lasix] 10 mg PO DAILY 09/22/22 10/12/23 Apixaban [Eliquis] 5 mg PO BID 10/22/22 10/12/23 Atorvastatin [Lipitor] 80 mg PO DAILY 10/12/23 10/12/23 Cyanocobalamin [Vitamin B-12 1,000 mcg SQ Q30D 10/12/23 10/12/23 Injection] Dicyclomine [Bentyl] 10 mg PO TID PRN 10/12/23 10/12/23 Ezetimibe [Zetia] 10 mg PO DAILY 10/12/23 10/12/23 Temazepam [Restoril] 30 mg PO HS PRN 10/12/23 10/12/23 Previous Rx's Medication Instructions Recorded Sertraline [Zoloft] 150 mg PO DAILY #30 tab 02/13/20 lisinopriL [Zestril] 10 mg PO DAILY #30 tab 09/13/22 Allergies Allergy/AdvReac Type Severity Reaction Status Date / Time No Known Allergies Allergy Verified 10/12/23 12:46 Review of Systems ROS Statement: Those systems with pertinent positive or pertinent negative responses have been documented in the HPI. ROS Other: All systems not noted in ROS Statement are negative. Past Medical History Past Medical History: COPD, CVA/TIA, Deep Vein Thrombosis (DVT), GERD/Reflux, Hypertension, Myocardial Infarction ([place]), Pneumonia, Vascular Disorder Additional Past Medical History / Comment(s): Previous history of gastric bypass surgery for obesity, remote history of a right lower extremity DVT 1996, peripheral vascular disease with previous angioplasty, restless leg syndrome, iron deficiency, COPD, adrenal gland mass Last Myocardial Infarction Date:: 10/2014 History of Any Multi-Drug Resistant Organisms: MRSA Date of last positivie culture/infection: 2000 MDRO Source:: abdominal wound Past Surgical History: Appendectomy, Bariatric Surgery, Breast Surgery, Cholecystectomy, Heart Catheterization, Hysterectomy, Orthopedic Surgery Additional Past Surgical History / Comment(s): Gastric bypass and subsequent multiple surgeries d/t incision did not heal properly and bowel was nicked, exploratory laparotomies, bilateral fem/pop bypass/stents, recent L wrist fracture with sx/hardware, bilateral feet bunionectomies, L rotator cuff repair, L knee arthroscopy, L breast benign bx, EGD, colonoscopies/benign polypectomy, right collar bone, Past Anesthesia/Blood Transfusion Reactions: No Reported Reaction Past Psychological History: Anxiety, Panic Disorder Smoking Status: Former smoker Past Alcohol Use History: Occasional Past Drug Use History: None Reported - Past Family History Father Family Medical History: CVA/TIA, Pneumonia Additional Family Medical History / Comment(s): STROKE AT AGE 50. Father of pne at the age of 63 yrs. Mother Family Medical History: No Reported History Additional Family Medical History / Comment(s): Mother is healthy and 83 yrs old. General Exam - General Exam Comments Initial Comments: GENERAL: Patient is well-developed and well-nourished. Patient is nontoxic and well- hydrated and is in mild distress. ENT: Neck is soft and supple. No significant lymphadenopathy is noted. Oropharynx is clear. Moist mucous membranes. Neck has full range of motion without eliciting any pain. I examined the patient's tongue I see no lumps or bumps or swelling area. EYES: The sclera were anicteric and conjunctiva were pink and moist. Extraocular movements were intact and pupils were equal round and reactive to light. Eyelids were unremarkable. PULMONARY: Unlabored respirations. Good breath sounds bilaterally. No audible rales rho nchi or wheezing was noted. CARDIOVASCULAR: There is a regular rate and rhythm without any murmurs gallops or rubs. ABDOMEN: Patient has right upper quadrant tenderness as well as minimal lateral rib tenderness SKIN: Skin is clear with no lesions or rashes and otherwise unremarkable. NEUROLOGIC: Patient is alert and oriented x3. Cranial nerves II through XII are grossly intact. Motor and sensory are also intact. Normal speech, volume and content. Symmetrical smile. MUSCULOSKELETAL: Normal extremities with adequate strength and full range of motion. LYMPHATICS: No significant lymphadenopathy is noted PSYCHIATRIC: Normal psychiatric evaluation. Limitations: no limitations Course Vital Signs 10/12/23 09:07 Temperature 98 F Pulse Rate 60 Respiratory 20 Rate Blood Pressure 170/81 O2 Sat by Pulse 99 Oximetry Medical Decision Making - Medical Decision Making EKG is interpreted by myself. EKG shows a sinus bradycardia 57 bpm TN interval 299 QRS is a 70 Q-T intervals 419 QTC is 412. Patient's EKG shows no ST segment elevation or depression Was pt. sent in by a medical professional or institution (ANASTASIIA Chavez, CARDIOVASCULAR PHYSICIAN ASSISTANT, urgent care, hospital, or halfway...) When possible be specific @ -No Did you speak to anyone other than the patient for history (EMS, parent, family, police, friend...)? What history was obtained from this source @ -No Did you review nursing and triage notes (agree or disagree)? Why? @ -I reviewed and agree with nursing and triage notes Were old charts reviewed (outside hosp., previous admission, EMS record, old EKG, old radiological studies, urgent care reports/EKG's, halfway records)? Report findings @ -I reviewed prior charts her prior lab work on this patient Differential Diagnosis (chest pain, altered mental status, abdominal pain women, abdominal pain men, vaginal bleeding, weakness, fever, dyspnea, syncope, headache, dizziness, GI bleed, back pain, seizure, CVA, palpatations, mental health, musculoskeletal)? @ -Differential Abdominal Pain Women: Appendicitis, Cholecystitis, diverticulosis, ischemic bowel, pancreatitis, hepatitis, UTI, gastroenteritis, AAA, incarcerated hernia, bowel obstruction, constipation, inflammatory bowel, hepatitis, peptic ulcer disease, splenic infarction, perforated viscus, vulvitis, ovarian torsion, PID, kidney stone, placenta abruption, this is not meant to be an all-inclusive list EKG interpreted by me (3pts min.). @ -As above X-rays interpreted by me (1pt min.). @ -Chest x-ray showed no acute abnormality CT interpreted by me (1pt min.). @ -CT of the abdomen and pelvis showed no acute abnormality U/S interpreted by me (1pt. min.). @ -None done What testing was considered but not performed or refused? (CT, X-rays, U/S, labs)? Why? @ -None What meds were considered but not given or refused? Why? @ -None Did you discuss the management of the patient with other professionals (professionals i.e. , PA, CARDIOVASCULAR PHYSICIAN ASSISTANT, lab, RT, psych nurse, social media coordinator, court of appeals judge, teacher, safety and security officer, adult protective caseworker)? Give summary @ -No Was smoking cessation discussed for >3mins.? @ -No Was critical care preformed (if so, how long)? @ -No Were there social determinants of health that impacted care today? How? ( Homelessness, low income, unemployed, alcoholism, drug addiction, transportation, low edu. Level, literacy, decrease access to med. care, nursing home, rehab)? @ -No Was there de-escalation of care discussed even if they declined (Discuss DNR or withdrawal of care, Hospice)? DNR status @ -No What co-morbidities impacted this encounter? (DM, HTN, Smoking, COPD, CAD, Cancer, CVA, ARF, Chemo, Hep., AIDS, mental health diagnosis, sleep apnea, morbid obesity)? @ -None Was patient admitted / discharged? Hospital course, mention meds given and route, prescriptions, significant lab abnormalities, going to OR and other pertinent info. @ -Patient's lab work came back within normal range patient's CAT scan of the abdomen and pelvis showed no acute abnormality and a chest x-ray showed no acute abnormality. I spoke with the patient and she still had some upper abdominal pain but she states she'll follow-up with her primary medical care doctor for further evaluation. Undiagnosed new problem with uncertain prognosis? @ -No Drug Therapy requiring intensive monitoring for toxicity (Heparin, Nitro, Insulin, Cardizem)? @ -No Were any procedures done? @ -No Diagnosis/symptom? @ -Abdominal pain Acute, or Chronic, or Acute on Chronic? @ -Acute Uncomplicated (without systemic symptoms) or Complicated (systemic symptoms)? @ -Complicated Side effects of treatment? @ -No Exacerbation, Progression, or Severe Exacerbation? @ -No] Poses a threat to life or bodily function? How? (Chest pain, [place], [place], pneumonia, PE, COPD, DKA, ARF, appy, cholecystitis, CVA, Diverticulitis, Homicidal, Suicidal, threat to staff... and all critical care pts) @ -[No] - Lab Data Result diagrams: 10/12/23 09:45 10/12/23 09:45 Lab Results 10/12/23 10/12/23 10/12/23 Range/Units 09:45 09:45 09:45 WBC 3.7 L (3.8-10.6) k/uL RBC 4.58 (3.80-5.40) m/uL Hgb 14.0 (11.4-16.0) gm/dL Hct 41.9 (34.0-46.0) % MCV 91.5 (80.0-100.0) fL MCH 30.6 (25.0-35.0) pg MCHC 33.5 (31.0-37.0) g/dL RDW 12.5 (11.5-15.5) % Plt Count 118 L (150-450) k/uL MPV 8.5 Neutrophils % 69 % Lymphocytes % 23 % Monocytes % 5 % Eosinophils % 2 % Basophils % 0 % Neutrophils # 2.6 (1.3-7.7) k/uL Lymphocytes # 0.9 L (1.0-4.8) k/uL Monocytes # 0.2 (0-1.0) k/uL Eosinophils # 0.1 (0-0.7) k/uL Basophils # 0.0 (0-0.2) k/uL Sodium 136 L (137-145) mmol/L Potassium 4.3 (3.5-5.1) mmol/L Chloride 102 (98-107) mmol/L Carbon Dioxide 23 (22-30) mmol/L Anion Gap 11 mmol/L BUN 13 (7-17) mg/dL Creatinine 1.00 (0.52-1.04) mg/dL Est GFR (CKD-EPI)AfAm 67 (>60 ml/min/1.73 sqM) Est GFR (CKD-EPI)NonAf 58 (>60 ml/min/1.73 sqM) Glucose 113 H (74-99) mg/dL Plasma Lactic Acid Cristobal (0.7-2.0) mmol/L Calcium 9.2 (8.4-10.2) mg/dL Magnesium 2.1 (1.6-2.3) mg/dL Total Bilirubin 0.7 (0.2-1.3) mg/dL AST 29 (14-36) U/L ALT 28 (4-34) U/L Alkaline Phosphatase 99 (38-126) U/L Troponin I (0.000-0.034) ng/mL Total Protein 6.9 (6.3-8.2) g/dL Albumin 4.4 (3.5-5.0) g/dL Lipase 122 (23-300) U/L Urine Color Colorless Urine Appearance Clear (Clear) Urine pH 5.0 (5.0-8.0) Ur Specific [place] 1.004 (1.001-1.035) Urine Protein Negative (Negative) Urine Glucose (UA) Negative (Negative) Urine Ketones Negative (Negative) Urine Blood Negative (Negative) Urine Nitrite Negative (Negative) Urine Bilirubin Negative (Negative) Urine Urobilinogen <2.0 (<2.0) mg/dL Ur Leukocyte Esterase Negative (Negative) Coronavirus (PCR) (Not Detectd) 10/12/23 10/12/23 10/12/23 Range/Units 09:45 09:45 09:45 WBC (3.8-10.6) k/uL RBC (3.80-5.40) m/uL Hgb (11.4-16.0) gm/dL Hct (34.0-46.0) % MCV (80.0-100.0) fL MCH (25.0-35.0) pg MCHC (31.0-37.0) g/dL RDW (11.5-15.5) % Plt Count (150-450) k/uL MPV Neutrophils % % Lymphocytes % % Monocytes % % Eosinophils % % Basophils % % Neutrophils # (1.3-7.7) k/uL Lymphocytes # (1.0-4.8) k/uL Monocytes # (0-1.0) k/uL Eosinophils # (0-0.7) k/uL Basophils # (0-0.2) k/uL Sodium (137-145) mmol/L Potassium (3.5-5.1) mmol/L Chloride (98-107) mmol/L Carbon Dioxide (22-30) mmol/L Anion Gap mmol/L BUN (7-17) mg/dL Creatinine (0.52-1.04) mg/dL Est GFR (CKD-EPI)AfAm (>60 ml/min/1.73 sqM) Est GFR (CKD-EPI)NonAf (>60 ml/min/1.73 sqM) Glucose (74-99) mg/dL Plasma Lactic Acid Cristobal 1.0 (0.7-2.0) mmol/L Calcium (8.4-10.2) mg/dL Magnesium (1.6-2.3) mg/dL Total Bilirubin (0.2-1.3) mg/dL AST (14-36) U/L ALT (4-34) U/L Alkaline Phosphatase (38-126) U/L Troponin I 0.014 (0.000-0.034) ng/mL Total Protein (6.3-8.2) g/dL Albumin (3.5-5.0) g/dL Lipase (23-300) U/L Urine Color Urine Appearance (Clear) Urine pH (5.0-8.0) Ur Specific [place] (1.001-1.035) Urine Protein (Negative) Urine Glucose (UA) (Negative) Urine Ketones (Negative) Urine Blood (Negative) Urine Nitrite (Negative) Urine Bilirubin (Negative) Urine Urobilinogen (<2.0) mg/dL Ur Leukocyte Esterase (Negative) Coronavirus (PCR) Not Detected (Not Detectd) Disposition Clinical Impression: Abdominal pain Disposition: HOME SELF-CARE Condition: Good Instructions (If sedation given, give patient instructions): Abdominal Pain (ED) Is patient prescribed a controlled substance at d/c from ED?: No Referrals: Kwame Mahoney DO [Primary Care Provider] - 1-2 days Time of Disposition: 13:00
[2023-10-12 10:01] LABS: Basophils % (A) 0 %; Eosinophils # (A) 0.1 k/uL (0-0.7); Eosinophils % (A) 2 %; HCT 41.9 % (34.0-46.0); Lymphocytes # (A) 0.9 k/uL (1.0-4.8); Lymphocytes % (A) 23 %; MCH 30.6 pg (25.0-35.0); MCHC 33.5 g/dL (31.0-37.0); MCV 91.5 fL (80.0-100.0); Mean Platelet Volume 8.5; Monocytes # (A) 0.2 k/uL (0-1.0); Monocytes % (A) 5 %; Neutrophils # (A) 2.6 k/uL (1.3-7.7); Neutrophils % (A) 69 %; Platelet Count 118 k/uL (150-450); RBC 4.58 m/uL (3.80-5.40); RDW 12.5 % (11.5-15.5); WBC 3.7 k/uL (3.8-10.6)
[2023-10-12 10:08] LABS: Appearance,Urine Clear (Clear); Bilirubin,Urine Negative (Negative); Blood,Urine Negative (Negative); Color,Urine Colorless; Glucose,Urine (UA) Negative (Negative); Ketones,Urine Negative (Negative); Leukocyte Esterase,Urine Negative (Negative); Nitrite,Urine Negative (Negative); Protein,Urine Negative (Negative); Specific Gravity,Urine 1.004 (1.001-1.035); Urobilinogen,Urine <2.0 mg/dL (<2.0)
--- NOTE | 2023-10-12 10:19 | XR ---
EXAMINATION TYPE: XR chest 2V DATE OF EXAM: 10/12/2023 10:06 AM COMPARISON: Chest radiographs from 09/22/2022 TECHNIQUE: XR chest 2V Frontal and lateral views of the chest. CLINICAL INDICATION:Female, 68 years old with history of Difficulty breathing ; FINDINGS: Lungs/Pleura: There is no evidence of pleural effusion, focal consolidation, or pneumothorax. Eventr ation of the right hemidiaphragm. Chronic senescent parenchymal change. Pulmonary vascularity: Unremarkable. Heart/mediastinum: Cardiomediastinal silhouette is unremarkable. Musculoskeletal: No acute osseous pathology. Fixation hardware involving the right shoulder. IMPRESSION: No acute cardiopulmonary disease/process.
[2023-10-12 10:27] LABS: ALT 28 U/L (4-34); AST 29 U/L (14-36); African American GFR (CKD) 67 (>60 ml/min/1.73 sqM); Albumin 4.4 g/dL (3.5-5.0); Alkaline Phosphatase 99 U/L (38-126); Anion Gap 11 mmol/L; Blood Urea Nitrogen 13 mg/dL (7-17); Calcium 9.2 mg/dL (8.4-10.2); Carbon Dioxide 23 mmol/L (22-30); Chloride 102 mmol/L (98-107); Glucose 113 mg/dL (74-99); Lipase 122 U/L (23-300); Magnesium 2.1 mg/dL (1.6-2.3); Non-African American GFR(CKD) 58 (>60 ml/min/1.73 sqM); Potassium 4.3 mmol/L (3.5-5.1); Sodium 136 mmol/L (137-145); Total Bilirubin 0.7 mg/dL (0.2-1.3); Total Protein 6.9 g/dL (6.3-8.2)
--- NOTE | 2023-10-12 12:21 | CT ---
EXAMINATION TYPE: CT abdomen pelvis w con CT DLP: 1320.5 mGycm, Automated exposure control for dose reduction was used. DATE OF EXAM: 10/12/2023 12:11 PM COMPARISON: CT abdomen pelvis most recent from 10/22/2022 . CLINICAL INDICATION:Female, 68 years old with history of Abdominal pain; ABDOMINAL PAIN, ONUR LOWER CH EST PRESSURE TECHNIQUE: Standard CT of the abdomen and pelvis following the administration of 80 cc of Isovue 30 0 IV contrast material. Coronal and sagittal reformats were performed. FINDINGS: LOWER CHEST: Unremarkable ABDOMEN LIVER: Unremarkable GALLBLADDER AND BILE DUCTS: The gallbladder is surgically absent. PANCREAS: Fatty infiltration. SPLEEN: Unremarkable. ADRENAL GLANDS: Left adrenal gland is unremarkable. Stable right adrenal gland subcentimeter nodule.. KIDNEYS AND URETERS: No evidence of hydronephrosis or renal calculus. The kidneys enhance symmetrical ly. Retroaortic left renal vein. Renal vascular calcifications noted. Contrast is demonstrated within both collecting systems on the delayed phase. PELVIS BLADDER: Unremarkable REPRODUCTIVE: The uterus is surgically absent. ABDOMEN & PELVIS STOMACH AND BOWEL: Post surgical changes from Azeb-en-Y gastric bypass. No focal bowel wall thickenin g or surrounding inflammatory changes. No evidence of bowel obstruction. PERITONEUM: No evidence of pneumoperitoneum or free fluid. VASCULATURE: Moderate atherosclerotic calcifications are present throughout the abdominal aorta and i ts branches. No evidence of aortic aneurysm. Pelvic phleboliths. MUSCULOSKELETAL: No acute osseous abnormalities. Degenerative changes most pronounced at L5-S1. LYMPH NODES: No gross evidence for lymphadenopathy. SOFT TISSUE/ABDOMINAL WALL: Post surgical changes of the anterior, wall. IMPRESSION: Chronic changes without evidence for acute abdominal/pelvic process.
[2023-10-12 13:33] VITALS: BP 153/81; PULSE 63; RESP 18; TEMP 98.7
== END 2023-10-12 13:14 | disposition home or self-care (01) ==
LOC: EC 09:05
DX: R10.9 Unspecified abdominal pain (principal); R00.1 Bradycardia, unspecified; J44.9 Chronic obstructive pulmonary disease, unspecified; I10 Essential (primary) hypertension; I25.2 Old myocardial infarction; F41.9 Anxiety disorder, unspecified; Z86.73 Personal history of transient ischemic attack (TIA), and cerebral infarction without residual deficits; Z87.891 Personal history of nicotine dependence; Z79.01 Long term (current) use of anticoagulants; Z79.899 Other long term (current) drug therapy; Z20.822 Contact with and (suspected) exposure to COVID-19; Z90.49 Acquired absence of other specified parts of digestive tract
CPT/HCPCS: 36415; 93005; 80053; 83605; 83690; 83735; 84484; 85025; 81003; 87635; 71046; 74177; 99285; Q9967

== ENCOUNTER 2024-04-13 09:30 | Day surgery (SDC) | payer MEDICARE ==
[2024-04-07 11:25] VITALS: BMI 29.9
[~2024-04-13 09:30] MED LIST: LIDOCAINE 1% (10MG/ML) FOR IV START INTRADERMA PRN
[2024-04-13] MEDS: LACTATED RINGERS 1,000 ML IV SCH (10:13)
[2024-04-13] MEDS ORDERED: LIDOCAINE 2% (PF) 20 MG/ML 5 ML VIAL ONE (10:15)
[2024-04-13] MEDS ORDERED: PROPOFOL 10 MG/ML 20 ML VIAL IV ONE (10:15)
--- NOTE | 2024-04-13 10:29 | P.PCN ---
Date of Procedure: 04/13/24 Procedure(s) Performed: BRIEF HISTORY: Patient is a 68-year-old, pleasant, white female skin polyp anoscopy as a part of evaluation of epigastric pain, atypical chest pain intermittent dysphagia for the last 6 months duration.. PROCEDURE PERFORMED: Esophagogastroduodenoscopy with biopsy. PREOPERATIVE DIAGNOSIS: Chronic epigastric abdominal pain/nausea/dysphagia. IV sedation per anesthesia. PROCEDURE: After informed consent was obtained, the patient was brought into the endoscopy unit. IV sedation was administered by Anesthesia under continuous monitoring. Initially the Olympus GIF-140 video endoscope was inserted into the mouth. Esophagus intubated without any difficulty. It was gradually advanced into the stomach and the gastric pouch had mild gastritis. There was evidence of gastric bypass surgery with Azeb-en-Y anastomosis. Scope was advanced into the afferent and efferent loops. At least 60 cm of the jejunum was visualized and appeared normal. Scope was then withdrawn into the gastric pouch and biopsies were done in this area. The scope was then withdrawn into the esophagus. The GE junction was located at 39 cm from the incisors. Small hiatal hernia noted. The esophagus appeared normal. There were no erosions or ulcerations seen, biopsies were done from the distal esophagus and the patient tolerated the procedure well. IMPRESSION: 1. Evidence of gastric bypass surgery with Azeb-en-Y anastomosis that appeared normal. 2. Mild gastritis of the gastric pouch. 3. Small hiatal hernia but no evidence of esophagitis. RECOMMENDATIONS: The findings of this examination were discussed with the patient as well as her family. She was advised to follow-up with the biopsy results. Continue with dicyclomine as needed..
[2024-04-13 10:51] VITALS: BP 121/72; PULSE 51; RESP 14; TEMP 97.3
== END 2024-04-13 11:37 | disposition home or self-care (01) ==
LOC: ORWHC2ENDO 09:30
PROVIDERS: ATTEND Internal Medicine Gastroenterology
DX: K44.9 Diaphragmatic hernia without obstruction or gangrene (principal); G89.29 Other chronic pain; I25.2 Old myocardial infarction; J44.9 Chronic obstructive pulmonary disease, unspecified; I73.9 Peripheral vascular disease, unspecified; G25.81 Restless legs syndrome; Z86.718 Personal history of other venous thrombosis and embolism; Z98.84 Bariatric surgery status; Z86.73 Personal history of transient ischemic attack (TIA), and cerebral infarction without residual deficits; Z79.01 Long term (current) use of anticoagulants; Z79.899 Other long term (current) drug therapy; Z98.890 Other specified postprocedural states
CPT/HCPCS: 88305; 43239; J2704; J2001

== ENCOUNTER 2024-05-18 23:21 | Inpatient (IN) | payer MEDICARE ==
--- NOTE | 2024-05-18 23:30 | ED ---
General Adult HPI - General Stated complaint: Possible stroke Time Seen by Provider: 05/18/24 23:25 - History of Present Illness Initial comments: Dictation was produced using [employer] dictation software. please excuse any grammatical, word or spelling errors. Chief Complaint: 68-year-old female presents to the emergency department strokelike symptoms History of Present Illness: Patient 68-year-old female she is brought in from home by EMS. Patient states that 8:30 PM she went to bed feeling fine. She woke up approximately 30 minutes prior to arrival started to have symptoms of right leg pain which progressed to right lower extremity numbness. She states that the numbness spread to her right upper extremity. Patient has history of stroke she suffered 2 years ago. Denies any residual deficits. Patient reports that she feels into her right arm and right leg. Denies any headache. The ROS documented in this emergency department record has been reviewed and confirmed by me. Those systems with pertinent positive or negative responses h ave been documented in the HPI. All other systems are other negative and/or noncontributory. - Related Data Home Medications Medication Instructions Recorded Confirmed estradioL [Estrace] 0.5 mg PO DAILY 09/25/17 04/13/24 ALPRAZolam [Xanax] 1 mg PO DAILY PRN 08/07/20 04/13/24 rOPINIRole HCL [Requip] 2 mg PO HS 09/10/22 04/13/24 Atorvastatin [Lipitor] 80 mg PO DAILY 10/12/23 04/13/24 Cyanocobalamin [Vitamin B-12 1,000 mcg SQ Q30D 10/12/23 04/13/24 Injection] Dicyclomine [Bentyl] 10 mg PO TID PRN 10/12/23 04/13/24 Ezetimibe [Zetia] 10 mg PO DAILY 10/12/23 04/13/24 Temazepam [Restoril] 30 mg PO HS PRN 10/12/23 04/13/24 Sertraline [Zoloft] 150 mg PO QAM 04/07/24 04/13/24 Warfarin [Coumadin] 2.5 mg PO MO 04/07/24 04/13/24 Warfarin [Coumadin] 5 mg PO [id number] 04/07/24 04/13/24 lisinopriL [Zestril] 10 mg PO QAM 04/07/24 04/13/24 Allergies Allergy/AdvReac Type Severity Reaction Status Date / Time No Known Allergies Allergy Verified 04/13/24 09:50 Review of Systems ROS Statement: Those systems with pertinent positive or pertinent negative responses have been documented in the HPI. ROS Other: All systems not noted in ROS Statement are negative. Past Medical History Past Medical History: COPD, CVA/TIA, Deep Vein Thrombosis (DVT), GERD/Reflux, Hyperlipidemia, Hypertension, Myocardial Infarction ([place]), Pneumonia, Vascular Disorder Additional Past Medical History / Comment(s): Abdominal pain for last 6-7 months. Hx right lower extremity DVT 1996, peripheral vascular disease. Restless leg syndrome, iron deficiency, adrenal gland mass. Hx CVA Aug 2022 - no residual effects. Last Myocardial Infarction Date:: 10/2014 History of Any Multi-Drug Resistant Organisms: MRSA Date of last positivie culture/infection: 2000 MDRO Source:: abdominal wound Past Surgical History: Appendectomy, Bariatric Surgery, Breast Surgery, Cholecystectomy, Heart Catheterization, Hysterectomy, Orthopedic Surgery Additional Past Surgical History / Comment(s): Gastric bypass and subsequent multiple surgeries d/t incision not healing properly and bowel was knicked, exploratory laparotomies, bilateral fem/pop bypass/stents, left wrist fracture with surgery/hardware, bilateral foot bunionectomies, left rotator cuff repair, left knee arthroscopy, left breast benign biopsy, EGD, colonoscopies/benign polypectomy, right collar bone surgery. Past Anesthesia/Blood Transfusion Reactions: No Reported Reaction Smoking Status: Former smoker - Past Family History Father Additional Family Medical History / Comment(s): STROKE AT AGE 50. Father of pnemonia at the age of 63 yrs. Mother Family Medical History: Cancer Additional Family Medical History / Comment(s): Skin cancer. General Exam - General Exam Comments Initial Comments: PHYSICAL EXAM: General Impression: Alert and oriented x3, not in acute distress HEENT: Normocephalic atraumatic, extra-ocular movements intact, pupils equal and reactive to light bilaterally, mucous membranes moist. Cardiovascular: Heart regular rate and rhythm Chest: Able to complete full sentences, no retractions, no tachypnea Abdomen: abdomen soft, non-tender, non-distended, no organomegaly Musculoskeletal: Pulses present and equal in all extremities, no peripheral edema Motor: no focal deficits noted Neurological: CN II-XII grossly intact, need to the right arm and right leg, there does appear to be measurable drift to the right upper and right lower extremity. Not aphasic, nondysarthric, NIH score of 2 Skin: Intact with no visualized rashes Psych: Normal affect and mood Course Vital Signs 05/18/24 05/18/24 23:24 23:44 Temperature 97.9 F Pulse Rate 69 72 Respiratory 20 20 Rate Blood Pressure 190/96 O2 Sat by Pulse 98 Oximetry - Reevaluation(s) Reevaluation #1: 05/18/24 23:30 Close stroke page upon arrival. NIH score of 2. Patient not a candidate for thrombolytics due to low NIH score, risks outweigh the benefits. Reevaluation #2: 05/18/24 23:[address] Desai who is agreeable that patient not a candidate for thrombolytics. EKG Findings - EKG Comments: EKG Findings:: My EKG interpretation: Ventricular rate 66, sinus rhythm,. 140, QRS 82, QTc 446. No OK prolongation, no QTC prolongation, no ST or T-wave changes noted. Overall, this EKG is unremarkable Medical Decision Making - Medical Decision Making Was pt. sent in by a medical professional or institution (, PA, CUTTING INSPECTOR, urgent care, hospital, or skilled nursing...) When possible be specific @ -No Did you speak to anyone other than the patient for history (EMS, parent, family, police, friend...)? What history was obtained from this source @ -Obtained from EMS as described above Did you review nursing and triage notes (agree or disagree)? Why? @ -I reviewed and agree with nursing and triage notes Were old charts reviewed (outside hosp., previous admission, EMS record, old E KG, old radiological studies, urgent care reports/EKG's, skilled nursing records)? Report findings @ -No old charts were reviewed Differential Diagnosis (chest pain, altered mental status, abdominal pain women, abdominal pain men, vaginal bleeding, musculoskeletal, weakness, fever, dyspnea, syncope, headache, dizziness, GI bleed, back pain, seizure, CVA, palpatations, mental health)? @ - Differential CVA: Ischemic stroke, hemorrhagic stroke, brain tumor, atypical migraine, Wernicke's encephalopathy, seizure, multiple sclerosis, meningitis, encephalitis, hypoglycemia, Guillain-Barry, electrolytes disturbance, myasthenia gravis.... This is not meant to be an all-inclusive list EKG interpreted by me (3pts min.). @ -As above X-rays interpreted by me (1pt min.). @ -None done CT interpreted by me (1pt min.). @ -CT brain and CT angiography shows no acute processes. U/S interpreted by me (1pt. min.). @ -None done What testing was considered but not performed or refused? (CT, X-rays, U/S, labs)? Why? @ -None What meds were considered but not given or refused? Why? @ -None Did you discuss the management of the patient with other professionals (professionals i.e. , PA, CUTTING INSPECTOR, lab, RT, psych nurse, director social service, certified scrub tech, teacher, investigation officer, watch caser)? Give summary @ -Case discussed with hospitalist for admission Was smoking cessation discussed for >3mins.? @ -No Was critical care preformed (if so, how long)? @ -No Were there social determinants of health that impacted care today? How? (Homelessness, low income, unemployed, alcoholism, drug addiction, transportation, low edu. Level, literacy, decrease access to med. care, long-term, rehab)? @ -No Was there de-escalation of care discussed even if they declined (Discuss DNR or withdrawal of care, Hospice)? DNR status @ -No What co-morbidities impacted this encounter? (DM, HTN, Smoking, COPD, CAD, Cancer, CVA, ARF, Chemo, Hep., AIDS, mental health diagnosis, sleep apnea, morbid obesity)? @ -None Was patient admitted / discharged? Hospital course, mention meds given and route, prescriptions, significant lab abnormalities, going to OR and other pertinent info. @ -68-year-old female presents to the emergency department for strokelike symptoms. Patient's symptoms began rather atypically. She is NIH score of 2. Seems to be a little more rigid. Patient has history of stroke she reports no residual deficits. Vital signs stable. Patient not given alteplase or not a candidate for thrombectomy. Labs and imaging are within acceptable limits. Patient has evidence of old infarct affecting the right cerebellum. Patient given aspirin will be admitted consultation to neurology. Undiagnosed new problem with uncertain prognosis? @ -No Drug Therapy requiring intensive monitoring for toxicity (Heparin, Nitro, Insulin, Cardizem)? @ -No Were any procedures done? @ -No Diagnosis/symptom? Acute, or Chronic, or Acute on Chronic? Uncomplicated (without systemic symptoms) or Complicated (systemic symptoms)? @ -Code stroke Side effects of treatment? @ -No Exacerbation, Progression, or Severe Exacerbation? @ -No Poses a threat to life or bodily function? How? (Chest pain, USA, DC, pneumonia, PE, COPD, DKA, ARF, appy, cholecystitis, CVA, Diverticulitis, Homicidal, Suicidal, threat to staff... and all critical care pts) @ -yes - Lab Data Result diagrams: 05/18/24 23:26 05/18/24 23:26 Lab Results 05/18/24 05/18/24 05/18/24 Range/Units 23:26 23:26 23:26 WBC 4.3 (3.8-10.6) k/uL RBC 4.53 (3.80-5.40) m/uL Hgb 14.2 (11.4-16.0) gm/dL Hct 42.1 (34.0-46.0) % MCV 92.9 (80.0-100.0) fL MCH 31.4 (25.0-35.0) pg MCHC 33.8 (31.0-37.0) g/dL RDW 13.7 (11.5-15.5) % Plt Count 122 L (150-450) k/uL MPV 8.4 Neutrophils % 56 % Lymphocytes % 35 % Monocytes % 5 % Eosinophils % 2 % Basophils % 0 % Neutrophils # 2.4 (1.3-7.7) k/uL Lymphocytes # 1.5 (1.0-4.8) k/uL Monocytes # 0.2 (0-1.0) k/uL Eosinophils # 0.1 (0-0.7) k/uL Basophils # 0.0 (0-0.2) k/uL PT 14.6 H (10.0-12.5) sec INR 1.4 H (<1.2) APTT 26.7 (22.0-30.0) sec Sodium 138 (137-145) mmol/L Potassium 4.1 (3.5-5.1) mmol/L Chloride 109 H (98-107) mmol/L Carbon Dioxide 20 L (22-30) mmol/L Anion Gap 9 mmol/L BUN 16 (7-17) mg/dL Creatinine 0.98 (0.52-1.04) mg/dL Est GFR (CKD-EPI)AfAm 68 (>60 ml/min/1.73 sqM) Est GFR (CKD-EPI)NonAf 59 (>60 ml/min/1.73 sqM) Glucose 110 H (74-99) mg/dL Calcium 9.1 (8.4-10.2) mg/dL Magnesium 2.0 (1.6-2.3) mg/dL Disposition Clinical Impression: Stroke Disposition: ADMITTED IP TO THIS HOSP Condition: Fair Referrals: Kwame Mahoney DO [Primary Care Provider] - 1-2 days Decision Time: 00:57
[2024-05-18 23:45] LABS: Basophils % (A) 0 %; Eosinophils # (A) 0.1 k/uL (0-0.7); Eosinophils % (A) 2 %; HCT 42.1 % (34.0-46.0); HGB 14.2 gm/dL (11.4-16.0); Lymphocytes # (A) 1.5 k/uL (1.0-4.8); Lymphocytes % (A) 35 %; MCH 31.4 pg (25.0-35.0); MCHC 33.8 g/dL (31.0-37.0); MCV 92.9 fL (80.0-100.0); Mean Platelet Volume 8.4; Monocytes # (A) 0.2 k/uL (0-1.0); Monocytes % (A) 5 %; Neutrophils # (A) 2.4 k/uL (1.3-7.7); Neutrophils % (A) 56 %; Platelet Count 122 k/uL (150-450); RBC 4.53 m/uL (3.80-5.40); RDW 13.7 % (11.5-15.5); WBC 4.3 k/uL (3.8-10.6)
[2024-05-18 23:55] LABS: INR 1.4 (<1.2); Partial Thromboplastin Time 26.7 sec (22.0-30.0); Prothrombin Time 14.6 sec (10.0-12.5)
--- NOTE | 2024-05-18 23:57 | CT ---
EXAM: CT Head Without Intravenous Contrast CLINICAL HISTORY: ITS.REASON CT Reason: code stroke TECHNIQUE: Axial computed tomography images of the head/brain without intravenous contrast. CTDI is 48.8 mGy and DLP is 1244 mGy-cm. This CT exam was performed using one or more of the following dose reduction techniques: automated exposure control, adjustment of the mA and/or kV according to patient size, and/or use of iterative reconstruction technique. COMPARISON: 09/22/2022 FINDINGS: Brain: Encephalomalacia from old infarct in the medial right cerebellum. Mild chronic low-attenuation cerebral white matter. No hemorrhage. Ventricles: No acute findings. No ventriculomegaly. Bones/joints: Unremarkable. No acute fracture. Soft tissues: Unremarkable. Sinuses: Unremarkable as visualized. No acute sinusitis. Mastoid air cells: Unremarkable as visualized. No mastoid effusion. IMPRESSION: 1. No acute intracranial pathology. 2. Encephalomalacia from old infarct in the medial right cerebellum.
--- NOTE | 2024-05-19 00:02 | CT ---
EXAM: CT Angiography Head With Intravenous Contrast CLINICAL HISTORY: ITS.REASON CT Reason: neurologic defecit TECHNIQUE: Axial computed tomographic angiography images of the head with intravenous contrast. CTDI is 9.6 mGy and DLP is 452.3 mGy-cm. This CT exam was performed using one or more of the following dose reduction techniques: automated exposure control, adjustment of the mA and/or kV according to patient size, and/or use of iterative reconstruction technique. MIP reconstructed images were created and reviewed. COMPARISON: No relevant prior studies available. FINDINGS: Right internal carotid artery: No acute findings. Intracranial segment is patent with no significant stenosis. No aneurysm. Right anterior cerebral artery: No occlusion or significant stenosis. No aneurysm. Right middle cerebral artery: No occlusion or significant stenosis. No aneurysm. Right posterior cerebral artery: No occlusion or significant stenosis. No aneurysm. Right vertebral artery: Unremarkable as visualized. Left internal carotid artery: No acute findings. Intracranial segment is patent with no significant stenosis. No aneurysm. Left anterior cerebral artery: No occlusion or significant stenosis. No aneurysm. Left middle cerebral artery: No occlusion or significant stenosis. No aneurysm. Left posterior cerebral artery: origin of the left posterior cerebral artery. Left vertebral artery: Unremarkable as visualized. Basilar artery: No occlusion or significant stenosis. No aneurysm. IMPRESSION: No large vessel occlusion or aneurysm. EXAM: CT Angiography Neck With Intravenous Contrast CLINICAL HISTORY: ITS.REASON CT Reason: neurologic defecit TECHNIQUE: Routine carotid CT angiography protocol was performed with intravenous contrast. NASCET criteria using the distal ICAs for comparison were used for evaluation of stenoses. CTDI is 21.6 mGy and DLP is 21.6 mGy-cm. This CT exam was performed using one or more of the following dose reduction techniques: automated exposure control, adjustment of the mA and/or kV according to patient size, and/or use of iterative reconstruction technique. MIP reconstructed images were created and reviewed. COMPARISON: None. FINDINGS: VASCULATURE: Right common carotid artery: No significant stenosis. No dissection or occlusion. Right internal carotid artery: Calcified plaque in the carotid bifurcations. Right external carotid artery: No occlusion. Right vertebral artery: No significant stenosis. No dissection or occlusion. Left common carotid artery: No significant stenosis. No dissection or occlusion. Left internal carotid artery: 30-40% stenosis in the left carotid bifurcation. Left external carotid artery: No occlusion. Left vertebral artery: No significant stenosis. No dissection or occlusion. NECK: Bones/joints: No acute findings. Soft tissues: Unremarkable. Lung apices: No acute disease. CAROTID STENOSIS REFERENCE USING NASCET CRITERIA: % ICA stenosis = (1 - narrowest ICA diameter/diameter of distal cervical ICA) x 100. Mild - <50% stenosis. Moderate - 50-69% stenosis. Severe - 70-94% stenosis. Near occlusion - 95-99% stenosis. Occluded - 100% stenosis. IMPRESSION: No acute findings in the arteries of the neck.
[2024-05-19 00:27] LABS: African American GFR (CKD) 68 (>60 ml/min/1.73 sqM); Anion Gap 9 mmol/L; Blood Urea Nitrogen 16 mg/dL (7-17); Calcium 9.1 mg/dL (8.4-10.2); Carbon Dioxide 20 mmol/L (22-30); Chloride 109 mmol/L (98-107); Glucose 110 mg/dL (74-99); Non-African American GFR(CKD) 59 (>60 ml/min/1.73 sqM); Potassium 4.1 mmol/L (3.5-5.1); Sodium 138 mmol/L (137-145)
[2024-05-19] MEDS: ASPIRIN 325 MG TAB PO STA (01:31)
[2024-05-19] MEDS: SODIUM CHLORIDE 0.9% 1,000 ML IV SCH (01:32)
[2024-05-19] MEDS ORDERED: hydrALAZINE HCL 20 MG/ML 1 ML VIAL IVP PRN (09:31)
[2024-05-19] MEDS ORDERED: DICYCLOMINE 10 MG CAP PO PRN (09:35)
[2024-05-19] MEDS: PANTOPRAZOLE 40 MG TABLET PO SCH (10:04)
[2024-05-19] MEDS: EZETIMIBE 10 MG TAB PO SCH (10:05)
[2024-05-19] MEDS: ALPRAZolam 1 MG TAB PO PRN (10:09)
--- NOTE | 2024-05-19 13:12 | P.HPIM ---
History of Present Illness H&P Date: 05/19/24 History of present illness; patient is 68-year-old lady with past medical history significant for stroke in the ER because of right-sided numbness. Patient stated that she was all right at 8:30 PM when she went to bed feeling fine. She woke up around 11 PM with pain in in the right leg that later progressed to having numbness of the right leg. Patient started also having numbness of right upper extremity. There was no complaint of any slurred speech. No Facial Droop. No Complaint of Headache. There Was No Complaint of Nausea, vomiting or abdominal pain. Patient denies any chest pain or shortness of breath. Because of the symptoms, EMS was called and patient was brought to the ER Initial lab work done in the ER showed WBC 4.3, hemoglobin 14.2, platelet count 122, INR 1.4, sodium 130, potassium 4.1, BUN 16, creatinine 0.98, calcium 9.1, magnesium 2 EKG done in the ER showed heart rate of66 , no ST segment elevation or depression seen, no T-wave inversions seen. CT head done showed no acute intracranial pathology, encephalomalacia from old infarct in the medial right cerebellum CTA head and neck done showed no significant stenosis, aneurysm or thrombus in the intracranial circulation ER physician discussed with on-call neurology and was decided the patient is currently not a candidate for thrombolytics. Patient admitted to internal medicine service REVIEW OF SYSTEMS: CONSTITUTIONAL: No fever, no malaise, no fatigue. HEENT: No recent visual problems or hearing problems. Denied any sore throat. CARDIOVASCULAR: No chest pain, orthopnea, PND, no palpitations, no syncope. PULMONARY: No shortness of breath, no cough, no hemoptysis. GASTROINTESTINAL: No diarrhea, no nausea, no vomiting, no abdominal pain. NEUROLOGICAL: As mentioned above HEMATOLOGICAL: Denies any bleeding or petechiae. GENITOURINARY: Denies any burning micturition, frequency, or urgency. MUSCULOSKELETAL/RHEUMATOLOGICAL: Denies any joint pain, swelling, or any muscle pain. ENDOCRINE: Denies any polyuria or polydipsia. The rest of the 14-point review of systems is negative. PHYSICAL EXAMINATION: GENERAL: The patient is alert and oriented x3, not in any acute distress. Well developed, well nourished. HEENT: Pupils are round and equally reacting to light. EOMI. No scleral icterus. No conjunctival pallor. Normocephalic, atraumatic. No pharyngeal erythema. No thyromegaly. CARDIOVASCULAR: S1 and S2 present. No murmurs, rubs, or gallops. PULMONARY: Chest is clear to auscultation, no wheezing or crackles. ABDOMEN: Soft, nontender, nondistended, normoactive bowel sounds. No palpable organomegaly. MUSCULOSKELETAL: No joint swelling or deformity. EXTREMITIES: No cyanosis, clubbing, or pedal edema. NEUROLOGICAL: Cranial nerves II 12 intact. Muscle strength is 4 x 5 in right upper extremity and 2/5 in right lower extremity, muscle strength is 5 x 5 in left side. SKIN: No rashes. Assessment and plan Acute CVA Hypertension Hyperlipidemia History of prior stroke Monitor vital signs Monitor CBC Monitor CMP Continue telemetry monitoring Continue neurochecks Ordered 2D echo Ordered MRI brain Start aspirin Start Lipitor Ordered lipid panel ordered HbA1c level Speech consulted PT OT consulted Consult neurology Labs and medication were reviewed.. Continue same treatment. Continue with symptomatic treatment. Resume home medication. Monitor labs and vitals. DVT and GI prophylaxis. Further recommendations as per clinical course of the patient Dictation was produced using [employer] dictation software. please excuse any grammatical, word or spelling errors. Past Medical History Past Medical History: COPD, CVA/TIA, Deep Vein Thrombosis (DVT), GERD/Reflux, Hyperlipidemia, Hypertension, Myocardial Infarction ([place]), Pneumonia, Vascular Disorder Additional Past Medical History / Comment(s): Abdominal pain for last 6-7 months. Hx right lower extremity DVT 1996, peripheral vascular disease. Restless leg syndrome, iron deficiency, adrenal gland mass. Hx CVA Aug 2022 - no residual effects. Last Myocardial Infarction Date:: 10/2014 History of Any Multi-Drug Resistant Organisms: MRSA Date of last positivie culture/infection: 2000 MDRO Source:: abdominal wound Past Surgical History: Appendectomy, Bariatric Surgery, Breast Surgery, Cholecystectomy, Heart Catheterization, Hysterectomy, Orthopedic Surgery Additional Past Surgical History / Comment(s): Gastric bypass and subsequent multiple surgeries d/t incision not healing properly and bowel was knicked, exploratory laparotomies, bilateral fem/pop bypass/stents, left wrist fracture with surgery/hardware, bilateral foot bunionectomies, left rotator cuff repair, left knee arthroscopy, left breast benign biopsy, EGD, colonoscopies/benign polypectomy, right collar bone surgery. Past Anesthesia/Blood Transfusion Reactions: No Reported Reaction Smoking Status: Former smoker - Past Family History Father Additional Family Medical History / Comment(s): STROKE AT AGE 50. Father of pnemonia at the age of 63 yrs. Mother Family Medical History: Cancer Additional Family Medical History / Comment(s): Skin cancer. Medications and Allergies Home Medications Medication Instructions Recorded Confirmed Type estradioL [Estrace] 0.5 mg PO DAILY 09/25/17 05/19/24 History ALPRAZolam [Xanax] 1 mg PO DAILY PRN 08/07/20 05/19/24 History rOPINIRole HCL [Requip] 2 mg PO HS 09/10/22 05/19/24 History Cyanocobalamin [Vitamin B-12 1,000 mcg SQ Q30D 10/12/23 05/19/24 History Injection] Dicyclomine [Bentyl] 10 mg PO TID PRN 10/12/23 05/19/24 History Ezetimibe [Zetia] 10 mg PO DAILY 10/12/23 05/19/24 History Sertraline [Zoloft] 150 mg PO QAM 04/07/24 05/19/24 History Warfarin [Coumadin] 5 mg PO HS 04/07/24 05/19/24 History lisinopriL [Zestril] 10 mg PO QAM 04/07/24 05/19/24 History Famotidine [Pepcid] 20 mg PO BID 05/19/24 05/19/24 History OLANZapine [ZyPREXA] 2.5 mg PO HS 05/19/24 05/19/24 History Pantoprazole [Protonix] 40 mg PO DAILY 05/19/24 05/19/24 History Primidone [Mysoline] 50 mg PO HS 05/19/24 05/19/24 History Allergies Allergy/AdvReac Type Severity Reaction Status Date / Time No Known Allergies Allergy Verified 05/19/24 08:13 Physical Exam Vitals: Vital Signs Temp Pulse Resp BP Pulse Ox 05/19/24 07:54 98.6 F 56 L 16 177/73 96 05/19/24 06:00 53 L 16 164/65 98 05/19/24 03:00 53 L 20 144/58 98 05/19/24 01:30 53 L 18 148/58 98 05/19/24 00:30 55 L 18 158/73 98 05/18/24 23:44 97.9 F 72 20 98 05/18/24 23:24 69 20 190/96 Intake and Output 05/18/24 05/19/24 05/19/24 22:59 06:59 14:59 Other: Weight 83.915 kg Results CBC & Chem 7: 05/18/24 23:26 05/18/24 23:26 Labs: Abnormal Lab Results - Last 24 Hours (Table) 05/18/24 05/18/24 05/18/24 Range/Units 23:26 23:26 23:26 Plt Count 122 L (150-450) k/uL PT 14.6 H (10.0-12.5) sec INR 1.4 H (<1.2) Chloride 109 H (98-107) mmol/L Carbon Dioxide 20 L (22-30) mmol/L Glucose 110 H (74-99) mg/dL
[2024-05-19] MEDS: levETIRAcetam 500 MG TAB PO SCH ×2 (15:14→23:19)
--- NOTE | 2024-05-19 15:53 | P.CNNES ---
History of Present Illness Consult date: 05/19/24 Requesting physician: Ankit Luu Reason for Consult: code stroke History of Present Illness: This is a 68-year-old woman history of right cerebellar stroke and small focus over the right occipital, hypertension, myocardial infarction, gastric bypass who presented emergency department because of right-sided weakness. Patient stated that yesterday around 9 PM she noticed that she is having right leg numbness and weakness then called EMS and then all of a sudden she noticed the right arm was weak. Her right arm weakness has resolved but leg weakness has not. She stated that in the last 2 to 2-1/2-months has been having eye fluttering that is uncontrollable as well and as she is having uncontrollable leg jerking that uncontrollable in the last 6 weeks. She does not have any history of seizure. She stated with no symptoms in the last 6 weeks to 2-1/2-month of the right leg jerking and eye fluttering she did not know what they are and she did not seek any medical attention for them. She does not follow-up with a neurologist and it seems that she used to follow-up with Dr. Mcneal in the past but wants to see a different neurologist. She states she does have underlying history of atrial fibrillation and she takes Coumadin but it seems her Coumadin is subtherapeutic. She denies being on any antiplatelet. She is on primidone and does not know the reason for that or who prescribed it for her. It is more her right leg jerking she was taking Xanax to help relieve it and she takes Xanax 1 mg daily as needed. Some of the work-up during this hospital visit consisted of: INR is 1.4. Sodium, BUN/creatinine, glucose and calcium magnesium are within normal limits Hemoglobin A1c is 5.5. CT of the head is reported as no acute intracranial pathology. Encephalomalacia from old infarct in the medial right cerebellum. I personally reviewed CT and agree with the report. Dr. Joshi of the head and neck is reported as no acute finding in the anterior of the neck and no large vessel occlusion or aneurysm. Review of Systems The positive and negative as per HPI. Past Medical History Past Medical History: COPD, CVA/TIA, Deep Vein Thrombosis (DVT), GERD/Reflux, Hyperlipidemia, Hypertension, Myocardial Infarction (SD), Pneumonia, Vascular Disorder Additional Past Medical History / Comment(s): Abdominal pain for last 6-7 months. Hx right lower extremity DVT 1996, peripheral vascular disease. Restless leg syndrome, iron deficiency, adrenal gland mass. Hx CVA Aug 2022 - no residual effects. Last Myocardial Infarction Date:: 10/2014 History of Any Multi-Drug Resistant Organisms: MRSA Date of last positivie culture/infection: 2000 MDRO Source:: abdominal wound Past Surgical History: Appendectomy, Bariatric Surgery, Breast Surgery, Cholecystectomy, Heart Catheterization, Hysterectomy, Orthopedic Surgery Additional Past Surgical History / Comment(s): Gastric bypass and subsequent multiple surgeries d/t incision not healing properly and bowel was knicked, exploratory laparotomies, bilateral fem/pop bypass/stents, left wrist fracture with surgery/hardware, bilateral foot bunionectomies, left rotator cuff repair, left knee arthroscopy, left breast benign biopsy, EGD, colonoscopies/benign polypectomy, right collar bone surgery. Past Anesthesia/Blood Transfusion Reactions: No Reported Reaction Past Psychological History: Anxiety, Panic Disorder Additional Psychological History / Comment(s): Pt resides with her spouse. She states she has high anxiety. Pt uses no assistive device. She drives. Smoking Status: Former smoker Past Alcohol Use History: Occasional Additional Past Alcohol Use History / Comment(s): Started smoking in 1973 and quit in 2008, smoked 1 ppd. Past Drug Use History: None Reported - Past Family History Father Additional Family Medical History / Comment(s): STROKE AT AGE 50. Father of pnemonia at the age of 63 yrs. Mother Family Medical History: Cancer Additional Family Medical History / Comment(s): Skin cancer. Medications and Allergies Home Medications Medication Instructions Recorded Confirmed Type estradioL [Estrace] 0.5 mg PO DAILY 09/25/17 05/19/24 History ALPRAZolam [Xanax] 1 mg PO DAILY PRN 08/07/20 05/19/24 History rOPINIRole HCL [Requip] 2 mg PO HS 09/10/22 05/19/24 History Cyanocobalamin [Vitamin B-12 1,000 mcg SQ Q30D 10/12/23 05/19/24 History Injection] Dicyclomine [Bentyl] 10 mg PO TID PRN 10/12/23 05/19/24 History Ezetimibe [Zetia] 10 mg PO DAILY 10/12/23 05/19/24 History Sertraline [Zoloft] 150 mg PO QAM 04/07/24 05/19/24 History Warfarin [Coumadin] 5 mg PO HS 04/07/24 05/19/24 History lisinopriL [Zestril] 10 mg PO QAM 04/07/24 05/19/24 History Famotidine [Pepcid] 20 mg PO BID 05/19/24 05/19/24 History OLANZapine [ZyPREXA] 2.5 mg PO HS 05/19/24 05/19/24 History Pantoprazole [Protonix] 40 mg PO DAILY 05/19/24 05/19/24 History Primidone [Mysoline] 50 mg PO HS 05/19/24 05/19/24 History Allergies Allergy/AdvReac Type Severity Reaction Status Date / Time No Known Allergies Allergy Verified 05/19/24 08:13 Physical Examination - Vital Signs Vital Signs: Vital Signs Temp Pulse Pulse Resp BP BP Pulse Ox 05/19/24 14:48 97.7 F 61 16 154/69 96 05/19/24 12:47 98.0 F 57 L 18 186/92 95 05/19/24 10:03 65 18 163/87 98 05/19/24 07:54 98.6 F 56 L 16 177/73 96 05/19/24 06:00 53 L 16 164/65 98 05/19/24 03:00 53 L 20 144/58 98 05/19/24 01:30 53 L 18 148/58 98 05/19/24 00:30 55 L 18 158/73 98 05/18/24 23:44 97.9 F 72 20 98 05/18/24 23:24 69 20 190/96 Intake and Output 05/19/24 05/19/24 05/19/24 06:59 14:59 22:59 Output Total 900 Balance -900 Output: Urine 900 Other: Voiding Method External Catheter Weight 83.915 kg 83.915 kg GENERAL: The patient is lying in bed and is not in acute distress. NEUROLOGICAL: Higher mental function: The patient is awake, alert, oriented to self, place and time. Patient is following commands. No aphasia and no neglect. Cranial nerves: The pupils are round, equal and reactive to light and accommodation. Visual valadez are full to confrontation throughout. Extraocular movement is intact no nystagmus is noted. Facial sensation is normal to touch throughout. The facial strength is normal throughout. Hearing is normal bilaterally to hand rub. Tongue is midline and moved [id number] without any difficulty. No dysarthria is noted. Shoulder shrug is normal bilaterally. Motor: The strength is right lower extremity is 2-3/5. Otherwise 5 over 5 throughout. Normal tone and bulk. Cerebellum: Normal finger to nose bilaterally. Sensation: Sensation is normal to touch throughout. Reflexes (right/left): 2+ throughout. Plantars are mute bilaterally. Results - Laboratory Findings CBC and BMP: 05/18/24 23:26 05/18/24 23:26 Abnormal Lab Findings: Abnormal Labs 05/18/24 05/18/24 05/18/24 23:26 23: 23:26 Plt Count 122 L PT 14.6 H INR 1.4 H Chloride 109 H Carbon Dioxide 20 L Glucose 110 H Assessment and Plan Assessment: Mrs. A 68-year-old woman with history of right cerebellar stroke and small focus over the right occipital, hypertension, myocardial infarction, gastric bypass who presents because of right-sided weakness started yesterday at 9 PM. She stated that this started right lower leg weakness and numbness then progressed to the upper. She stated that in the last 6 weeks she has been having jerking of the right lower extremity and she is unable to stop it and she was taking Xanax to help alleviate that as well in the last 2-1/2 months she is having bilateral eye fluttering. Acute right sided weakness. Certainly involving lower extremity then involving upper. She continues to have right lower extremity weakness. 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 Rule out stroke but doubt it. Recurrent right leg jerking in last 6 weeks and she was unable to stop them with bilateral eye fluttering for 2.5 months is likely due to focal seizure Right cerebellar stroke and small focus over the right occipital Past she had carotid stenosis left 70% and right is 50 to 69% on CTA but less on the carotid duplex and this time no significant carotid duplex is reported on the CTA History of Atrial fibrillation Patient on Coumadin and INR subtherapeutic History DVT. Per medical record patient has history of restless leg syndrome. Underlying history of hypertension Underlying history of myocardial infarction History vascular disease History of gastric bypass Plan: I changed the order of the MRI from without to with and without I ordered a routine EEG. 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 Our ED she was given aspirin 325 once and was started on aspirin 3-5 daily. She is on Zetia. Lipid panel was ordered, 2D echo was ordered and pending Continue neurochecks Cardiac monitoring PT OT and SOCIOLOGY RESEARCH ASSISTANT are consulted Will defer rest of the medical management the primary team and other specialists DVT prophylaxis: Unsure if Coumadin is cannot be resumed or she is can to be started on her new home medication of Eliquis and will will defer that to the primary or her universal grinder set up operator. Plan discussed with the patient and the primary team Thank you for the consultation. Time with Patient: Greater than 30
[2024-05-19] MEDS: levETIRAcetam IV 500 MG/5 ML VIAL IVP STA (17:45)
[2024-05-19 17:46] LABS: Glucose,Whole Blood 163 mg/dL (70-110)
[2024-05-19] MEDS: LORazepam 2 MG/ML INJ IV STA (17:46)
[2024-05-19] MEDS: PRIMIDONE 50 MG TAB PO SCH (23:19)
[2024-05-19] MEDS: FAMOTIDINE 20 MG TAB PO SCH (23:19)
[2024-05-19] MEDS: OLANZapine 2.5 MG TAB PO SCH (23:19)
[2024-05-20] MEDS: SERTRALINE 50 MG TAB PO SCH (06:17)
[2024-05-20] MEDS: ASPIRIN 325 MG TAB PO SCH (06:17)
[2024-05-20 08:24] VITALS: RESP 18
[2024-05-20] MEDS: lisinopriL 10 MG TAB PO SCH (08:24)
--- NOTE | 2024-05-20 11:00 | MR ---
EXAMINATION TYPE: MR brain wo/w con DATE OF EXAM: 05/20/2024 10:36 AM CLINICAL INDICATION:Female, 68 years old with history of seizure; COMPARISON: 05/18/2024. TECHNIQUE: Multi planar, multi sequence imaging was performed through the brain including: T1, T2, In version recovery, susceptibility weighted imaging and gradient echo imaging and Diffusion weighted im aging. The patient was then given intravenous contrast and multi planar, T1 fat-saturation images wer e obtained. IV Contrast: 8 cc Gadavist FINDINGS: Prior injury to the right medial cerebellar hemisphere. Mild cerebral atrophy with proportional dilation of ventricular system. Diffusion-weighted imaging s hows no evidence of restricted diffusion to suggest acute/subacute infarct. Intracranial arterial pam w voids are maintained. Midline structures show no abnormality. Scattered foci of high T2 signal inte nsity are seen within the periventricular white matter. The susceptibility weighted images do not rev eal any evidence for micro-hemorrhage. After administration of gadolinium, no abnormal enhancement is seen. Blooming artifact within the bilateral frontal lobes compatible with developmental venous anom alies. The bone marrow signal is within normal limits. Paranasal sinuses and mastoid air cells: No significant paranasal sinus disease. Visualized orbits: Orbital contents are intact. IMPRESSION: 1. No evidence of intracranial mass, acute/subacute infarct, or abnormal enhancement. 2. Nonspecific white matter changes, likely related to small vessel ischemic disease. 3. Remote injury to the right medial cerebellar hemisphere. 4. Bilateral frontal lobes developmental venous anomalies.
[2024-05-20 11:26] VITALS: BP 134/71; PULSE 66; TEMP 98
--- NOTE | 2024-05-20 11:35 | CA ---
Transthoracic Echo Report Name: Malini Canela Age: 68 Gender: F : 1955 Exam Date: 05/19/2024 13:37 Exam Location: [facility] Ht (in): 65 Wt (lb): 185 Ordering Physician: Gera Monterroso MD Attending/Referring Phys: Web Services Professional Natasha Spivey RDCS Procedure CPT: Indications: Right-sided weakness Cardiac Hx: Technical Quality: Fair Contrast 1: Total Dose (mL): Contrast 2: Total Dose (mL): MEASUREMENTS (Male / Female) Normal Values 2D ECHO LV Diastolic Diameter PLAX 3.1 cm 4.2 - 5.9 / 3.9 - 5.3 cm LV Systolic Diameter PLAX 2.2 cm IVS Diastolic Thickness 1.2 cm 0.6 - 1.0 / 0.6 - 0.9 cm LVPW Diastolic Thickness 1.0 cm 0.6 - 1.0 / 0.6 - 0.9 cm LV Relative Wall Thickness 0.7 RV Internal Dim ED PLAX 1.9 cm LA Systolic Diameter LX 4.3 cm 3.0 - 4.0 / 2.7 - 3.8 cm LV Diastolic Volume MOD BP 59.5 cm??? 67 - 155 / 56 - 104 cm??? LV Systolic Volume MOD BP 23.2 cm??? 22 - 58 / 19 - 49 cm??? LV Ejection Fraction MOD BP 61.0 % >= 55 % LV Cardiac Index MOD BP 1077.6 cm???/min???m??? LV Diastolic Volume MOD 4C 59.2 cm??? LV Systolic Volume MOD 4C 22.1 cm??? LV Ejection Fraction MOD 4C 62.7 % LV Cardiac Index MOD 4C 1101.2 cm???/min???m??? LV Diastolic Length 4C 6.6 cm LV Systolic Length 4C 6.1 cm LV Diastolic Volume MOD 2C 58.9 cm??? LV Systolic Volume MOD 2C 23.4 cm??? LV Ejection Fraction MOD 2C 60.2 % LV Cardiac Index MOD 2C 1052.2 cm???/min???m??? LV Diastolic Length 2C 6.5 cm LV Systolic Length 2C 5.8 cm LA Volume 45.9 cm??? 18 - 58 / 22 - 52 cm??? LA Volume Index 23.1 cm???/m??? 16 - 28 cm???/m??? M-MODE Aortic Root Diameter MM 2.8 cm LA Systolic Diameter MM 4.0 cm LA Ao Ratio MM 1.5 AV Cusp Separation MM 1.8 cm DOPPLER AV Peak Velocity 140.9 cm/s AV Peak Gradient 7.9 mmHg MV Area PHT 2.9 cm??? Mitral E Point Velocity 96.0 cm/s Mitral A Point Velocity 94.4 cm/s Mitral E to A Ratio 1.0 MV Deceleration Time 258.9 ms TR Peak Velocity 264.3 cm/s TR Peak Gradient 27.9 mmHg Right Ventricular Systolic Press 32.1 mmHg FINDINGS Left Ventricle Left ventricular ejection fraction is estimated at 60-65 %. Mildly increased septal wall thickness. Mildly increased posterior wall thickness. No obvious regional wall motion abnormalities. Left ventricular cavity size normal. Right Ventricle Normal right ventricular size and function. Right ventricular systolic pressure within normal limits. Right Atrium Mild right atrial dilatation. Left Atrium Mildly increased left atrial diameter. Mitral Valve Structurally normal mitral valve. Trace to mild mitral regurgitation. Aortic Valve Trileaflet aortic valve. No aortic stenosis. No aortic regurgitation. Tricuspid Valve Structurally normal tricuspid valve. No tricuspid stenosis. Mild tricuspid regurgitation. Pulmonic Valve Structurally normal pulmonic valve. Trace pulmonic regurgitation. Pericardium No pericardial or pleural effusion. Aorta Normal size aortic root and proximal ascending aorta. CONCLUSIONS Normal LV systolic function Aortic sclerosis. The aortic valve is poorly visualized and cannot exclude bicuspid aortic valve. No stenosis or regurgitation Previewed by: Dr. Shamir Lemus MD (Electronically Signed) Final Date: 20 May 2024 11:34
[2024-05-20 12:04] LABS: Basophils % (A) 0 %; Eosinophils # (A) 0.1 k/uL (0-0.7); Eosinophils % (A) 2 %; HCT 41.8 % (34.0-46.0); HGB 13.6 gm/dL (11.4-16.0); Lymphocytes # (A) 0.9 k/uL (1.0-4.8); Lymphocytes % (A) 17 %; MCH 30.4 pg (25.0-35.0); MCHC 32.4 g/dL (31.0-37.0); MCV 93.9 fL (80.0-100.0); Mean Platelet Volume 8.5; Monocytes # (A) 0.3 k/uL (0-1.0); Monocytes % (A) 5 %; Neutrophils % (A) 75 %; Platelet Count 136 k/uL (150-450); RBC 4.46 m/uL (3.80-5.40); RDW 13.3 % (11.5-15.5); WBC 5.3 k/uL (3.8-10.6)
[2024-05-20 12:20] LABS: Glucose 86 mg/dL (74-99)
[2024-05-20 12:21] LABS: ALT 25 U/L (4-34); AST 27 U/L (14-36); African American GFR (CKD) 68 (>60 ml/min/1.73 sqM); Albumin 4.1 g/dL (3.5-5.0); Alkaline Phosphatase 98 U/L (38-126); Anion Gap 4 mmol/L; Blood Urea Nitrogen 20 mg/dL (7-17); Calcium 8.8 mg/dL (8.4-10.2); Carbon Dioxide 25 mmol/L (22-30); Chloride 107 mmol/L (98-107); Non-African American GFR(CKD) 59 (>60 ml/min/1.73 sqM); Potassium 4.7 mmol/L (3.5-5.1); Sodium 136 mmol/L (137-145); Total Bilirubin 0.6 mg/dL (0.2-1.3); Total Protein 6.3 g/dL (6.3-8.2)
--- NOTE | 2024-05-20 12:35 | P.DS ---
Providers Date of admission: 05/19/24 00:52 Expected date of discharge: 05/20/24 Attending physician: Geovanna Gandara Consults: 05/19/24 00:53 Consult Physician Routine Consulting Provider: Walker Rahman Consult Reason/Comments: code stroke Do you want consulting provider notified?: Yes Primary care physician: Kw[facility] Course: Discharge diagnoses; Acute CVA ruled out Seizures Hypertension Hyperlipidemia History of prior stroke Hospital course; patient is 68-year-old lady with past medical history significant for stroke in the ER because of right-sided numbness. Patient stated that she was all right at 8:30 PM when she went to bed feeling fine. She woke up around 11 PM with pain in in the right leg that later progressed to having numbness of the right leg. Patient started also having numbness of right upper extremity. There was no complaint of any slurred speech. No Facial Droop. No Complaint of Headache. There Was No Complaint of Nausea, vomiting or abdominal pain. Patient denies any chest pain or shortness of breath. Because of the symptoms, EMS was called and patient was brought to the ER Initial lab work done in the ER showed WBC 4.3, hemoglobin 14.2, platelet count 122, INR 1.4, sodium 130, potassium 4.1, BUN 16, creatinine 0.98, calcium 9.1, magnesium 2 EKG done in the ER showed heart rate of66 , no ST segment elevation or depress ion seen, no T-wave inversions seen. CT head done showed no acute intracranial pathology, encephalomalacia from old infarct in the medial right cerebellum CTA head and neck done showed no significant stenosis, aneurysm or thrombus in the intracranial circulation ER physician discussed with on-call neurology and was decided the patient is currently not a candidate for thrombolytics. Patient admitted to internal medicine service 05/20. Patient seen and examined. MRI brain done showed no evidence of acute intracranial mass, acute/subacute infarct. 2D echo done showed normal LV function, aortic sclerosis. Patient was started on Keppra by neurology, think symptoms are related to seizures. 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 Patient is cleared for discharge PHYSICAL EXAMINATION: GENERAL: The patient is alert and oriented x3, not in any acute distress. Well developed, well nourished. HEENT: Pupils are round and equally reacting to light. EOMI. No scleral icterus. No conjunctival pallor. Normocephalic, atraumatic. No pharyngeal erythema. No thyromegaly. CARDIOVASCULAR: S1 and S2 present. No murmurs, rubs, or gallops. PULMONARY: Chest is clear to auscultation, no wheezing or crackles. ABDOMEN: Soft, nontender, nondistended, normoactive bowel sounds. No palpable o rganomegaly. MUSCULOSKELETAL: No joint swelling or deformity. EXTREMITIES: No cyanosis, clubbing, or pedal edema. NEUROLOGICAL: Gross neurological examination did not reveal any focal deficits. SKIN: No rashes. Dictation was produced using Dining Secretary dictation software. please excuse any grammatical, word or spelling errors. Patient Condition at Discharge: Fair Plan - Discharge Summary Discharge Rx Participant: No New Discharge Prescriptions: New Apixaban [Eliquis] 5 mg PO BID tab levETIRAcetam [Keppra] 1,000 mg PO Q12HR #60 tab Continue estradioL [Estrace] 0.5 mg PO DAILY ALPRAZolam [Xanax] 1 mg PO DAILY PRN PRN Reason: Anxiety Ezetimibe [Zetia] 10 mg PO DAILY lisinopriL [Zestril] 10 mg PO QAM Primidone [Mysoline] 50 mg PO HS OLANZapine [ZyPREXA] 2.5 mg PO HS rOPINIRole HCL [Requip] 2 mg PO HS Dicyclomine [Bentyl] 10 mg PO TID PRN PRN Reason: Gi Upset Cyanocobalamin [Vitamin B-12 Injection] 1,000 mcg SQ Q30D Sertraline [Zoloft] 150 mg PO QAM Pantoprazole [Protonix] 40 mg PO DAILY Famotidine [Pepcid] 20 mg PO BID Discontinued Warfarin [Coumadin] 5 mg PO HS Discharge Medication List estradioL [Estrace] 0.5 mg PO DAILY 09/25/17 [History] ALPRAZolam [Xanax] 1 mg PO DAILY PRN 08/07/20 [History] rOPINIRole HCL [Requip] 2 mg PO HS 09/10/22 [History] Cyanocobalamin [Vitamin B-12 Injection] 1,000 mcg SQ Q30D 10/12/23 [History] Dicyclomine [Bentyl] 10 mg PO TID PRN 10/12/23 [History] Ezetimibe [Zetia] 10 mg PO DAILY 10/12/23 [History] Sertraline [Zoloft] 150 mg PO QAM 04/07/24 [History] lisinopriL [Zestril] 10 mg PO QAM 04/07/24 [History] Famotidine [Pepcid] 20 mg PO BID 05/19/24 [History] OLANZapine [ZyPREXA] 2.5 mg PO HS 05/19/24 [History] Pantoprazole [Protonix] 40 mg PO DAILY 05/19/24 [History] Primidone [Mysoline] 50 mg PO HS 05/19/24 [History] Apixaban [Eliquis] 5 mg PO BID tab 05/20/24 [Rx] levETIRAcetam [Keppra] 1,000 mg PO Q12HR #60 tab 05/20/24 [Rx] Follow up Appointment(s)/Referral(s): Kwame Mahoney DO [Primary Care Provider] - 1-2 days Patient Instructions/Handouts: Seizure/Epilepsy Discharge Instructions & Follow-Up, Epilepsy (DC) Discharge Disposition: HOME SELF-CARE
[2024-05-20] MEDS: APIXABAN 5 MG TAB PO SCH (13:01)
[2024-05-20 15:18] LABS: Chol/HDL Ratio 2.54 Ratio; LDL Cholesterol,Calculated 118.2 mg/dL (0.0-131.0)
--- NOTE | 2024-05-20 15:33 | P.PN ---
Subjective Progress Note Date: 05/20/24 I am following-up with patient and she stated today she is drastically better and no further weakness or numbness. She felt back to baseline. Yesterday at 5ishpm I was notified by the nurse the patient had right leg weakness and numbness and involving the right arm. I gave patient Ativan 1mg and loaded the patient with IV Keppra. I also notified the nurse to contact the primary team regarding starting Eliquis since her clinical services assistant perscribed Eliquis as new medication rather that Coumadin. Objective - Vital Signs Vital signs: Vital Signs Temp 98.0 F 05/20/24 11:25 Pulse 66 05/20/24 11:25 Resp 18 05/20/24 11:25 BP 134/71 05/20/24 11:25 Pulse Ox 98 05/20/24 11:25 FiO2 Intake & Output 05/19/24 05/20/24 05/20/24 18:59 06:59 18:59 Intake Total 80 358 Output Total 900 500 350 Balance -900 -420 8 Weight 83.915 kg 86.3 kg Intake: Intake, IV Titration 80 Amount Sodium Chloride 0.9% 1, 80 000 ml @ 20 mls/hr IV . Q24H [facility] Rx#:[id number] Oral 358 Output: Urine 900 500 350 Other: Voiding Method External Catheter External Catheter External Catheter # Bowel Movements 1 1 - Exam GENERAL: The patient is lying in bed and is not in acute distress. NEUROLOGICAL: Higher mental function: The patient is awake, alert, oriented to self, place and time. Patient is following commands. No aphasia and no neglect. Cranial nerves: The pupils are round, equal and reactive to light and acc ommodation. Visual valadez are full to confrontation throughout. Extraocular movement is intact no nystagmus is noted. Facial sensation is normal to touch throughout. The facial strength is normal throughout. Hearing is normal bilaterally to hand rub. Tongue is midline and moved [id number] without any difficulty. No dysarthria is noted. Shoulder shrug is normal bilaterally. Motor: The strength is 5 over 5 throughout. Normal tone and bulk. Cerebellum: Normal finger to nose bilaterally. Sensation: Sensation is normal to touch throughout. Reflexes (right/left): 2+ throughout. Plantars are mute bilaterally. Some of the work-up during this hospital visit consisted of: INR is 1.4. Sodium, BUN/creatinine, glucose and calcium magnesium are within normal limits Hemoglobin A1c is 5.5. CT of the head is reported as no acute intracranial pathology. Encephalomalacia from old infarct in the medial right cerebellum. I personally reviewed CT and agree with the report. CTA of the head and neck is reported as no acute finding in the anterior of the neck and no large vessel occlusion or aneurysm. 2D echo: It is reported as Normal LV systolic function. Aortic sclerosis. The aortic valve is poorly visualized. No stenosis or regurgitation. MRI Brain w/ and w/o: No evidence of intracranial mass, acute/subacute infarct or abnormal enhancement. Nonspecific white matter changes, likely related to small vessel ischemic disease. Remote injury to the right medial cerebellar hemisphere. Bilateral frontal lobe developmental venous anomalies. - Labs CBC & Chem 7: 05/20/24 11:16 05/20/24 11:16 Labs: Abnormal Lab Results - Last 24 Hours (Table) 05/19/24 05/20/24 05/20/24 Range/Units 17:44 11:16 11:16 Plt Count 136 L (150-450) k/uL Lymphocytes # 0.9 L (1.0-4.8) k/uL Sodium 136 L (137-145) mmol/L BUN 20 H (7-17) mg/dL POC Glucose (mg/dL) 163 H (70-110) mg/dL Cholesterol 235.00 H (0.00-200.00) mg/dL HDL Cholesterol 92.40 H (40.00-60.00) mg/dL Assessment and Plan Assessment: Mrs. A 68-year-old woman with history of right cerebellar stroke and small focus over the right occipital, hypertension, myocardial infarction, gastric bypass who presents because of right-sided weakness started yesterday at 9 PM. She stated that this started right lower leg weakness and numbness then progressed to the upper. She stated that in the last 6 weeks she has been having jerking of the right lower extremity and she is unable to stop it and she was taking Xanax to help alleviate that as well in the last 2-1/2 months she is having bilateral eye fluttering. Acute transient right sided weakness, Involving lower extremity then involving upper. She continues to have right lower extremity weakness. I think due to new onset seizure with Federico's Paralysis (weakness). No stroke on MRI Brain. Symptoms resolved Recurrent right leg jerking in last 6 weeks and she was unable to stop them with bilateral eye fluttering for 2.5 months is likely due to focal seizure Venous anomalies reported on MRI Brain but not CTA History of Right cerebellar stroke and small focus over the right occipital Past she had carotid stenosis left 70% and right is 50 to 69% on CTA but less on the carotid duplex and this time no significant carotid duplex is reported on the CTA History of Atrial fibrillation Patient on Coumadin and INR subtherapeutic History DVT. Per medical record patient has history of restless leg syndrome. Underlying history of hypertension Underlying history of myocardial infarction History vascular disease History of gastric bypass Plan: Continue Keppra 500mg bid. Prelminary routine EEG: No seizure Recommend a sleep deprived EEG as outpatient vs care home EEG as outpatient. Th is should be coordinated by her neurologist or PCP. Seizure Precaution and seizure pads Patient stated that she got a call from her clinical services assistant and they will switch to Coumadin to Eliquis and gave her a script of Eliquis to her outpatient pharmacy. I will defer use of anticoagulation to primary team. No need for ASA from neurological perspective since felt more seizure than a stroke or TIA. She is on Zetia. Recommend the patient to follow-up with interventional neurologist or neurosurgeon regarding bilateral frontal developmental venous anomalies noted on MRI Brain. Patient was notified that per [place] DMV, because of seizure, to avoid driving for 6 month until no further episodes from last episode, avoid heights, swim unassisted or use heavy machinery. Continue neurochecks Cardiac monitoring PT OT and TRIM INSTALLER are consulted Will defer rest of the medical management the primary team and other specialists Upon discharge, recommend the patient to follow-up with neurologist as outpatient within 1-2 weeks. Plan discussed with the patient and the primary team There is no further neurological work-up. Time with Patient: Less than 30
--- NOTE | 2024-05-20 21:49 | EEG ---
ELECTROENCEPHALOGRAM REPORT CLINICAL HISTORY: This is a 68-year-old woman with recurrent leg jerking. The video EEG is obtained to evaluate for seizure epileptiform activity. RELEVANT MEDICATIONS: 1. Keppra. 2. Ativan. 3. Xanax. EEG TYPE: A routine 21-channel EEG with video using the 10/20 electrode placement system. DESCRIPTION: Wakefulness is only obtained. During awake state, the posterior-dominant rhythm consists of pym-lo-nyrohwos voltage of 10 hertz activity that is well modulated and well sustained. There is no physiological stage 2 sleep architecture. There is no focal slowing. Interictal and ictal is none. ACTIVATION PROCEDURE: Photic stimulation did not evoke a posterior driving response. There is no abnormality during the photic stimulation. Hyperventilation is not performed. CLINICAL INTERPRETATION: This is a normal routine EEG. There is no focal slowing, epileptiform discharge, or seizure on the EEG. A normal routine EEG does not rule out underlying epilepsy. Clinical correlation is recommended. ALINE / DHEERAJ: [id number] /
[2024-05-30] MEDS ORDERED: CYANOCOBALAMIN 1,000 MCG/ML 1 ML VIAL SQ SCH (09:00)
== END 2024-05-20 13:14 | disposition home or self-care (01) | DRG 101 ==
LOC: EC 23:21 → 3SCARD 05-19 00:52
PROVIDERS: ADMIT Hospitalist; ATTEND Hospitalist
DX: G40.909 Epilepsy, unspecified, not intractable, without status epilepticus (principal); G83.84 Todd's paralysis (postepileptic); E78.5 Hyperlipidemia, unspecified; G25.81 Restless legs syndrome; G93.89 Other specified disorders of brain; I10 Essential (primary) hypertension; I25.2 Old myocardial infarction; I48.91 Unspecified atrial fibrillation; I70.0 Atherosclerosis of aorta; J44.9 Chronic obstructive pulmonary disease, unspecified; I65.23 Occlusion and stenosis of bilateral carotid arteries; K21.9 Gastro-esophageal reflux disease without esophagitis; Z87.01 Personal history of pneumonia (recurrent); Z86.14 Personal history of Methicillin resistant Staphylococcus aureus infection; Z87.891 Personal history of nicotine dependence; Z79.01 Long term (current) use of anticoagulants; Z79.899 Other long term (current) drug therapy; Z86.718 Personal history of other venous thrombosis and embolism; Z86.73 Personal history of transient ischemic attack (TIA), and cerebral infarction without residual deficits; Z98.84 Bariatric surgery status
CPT/HCPCS: 36415; 70450; 70496; 70498; 70553; 80048; 80053; 80061; 83036; 83735; 85025; 85610; 85730; 93005; 93306; 95816; 99285

== ENCOUNTER 2024-05-21 17:02 | Inpatient (IN) | payer MEDICARE ==
--- NOTE | 2024-05-21 17:35 | ED ---
General Adult HPI - General Chief complaint: Weakness Stated complaint: Weakness Time Seen by Provider: 05/21/24 17:18 Source: patient, EMS Mode of arrival: EMS - History of Present Illness Initial comments: Dictation was produced using [employer] dictation software. please excuse any g rammatical, word or spelling errors. Chief Complaint: 68-year-old female presents to the emergency department for right upper and right lower extremity assist History of Present Illness: Patient 68-year-old female she was just discharged from the hospital yesterday. Patient was admitted 3 days ago for strokelike symptoms. She was seen and evaluated by neurology. Patient had MRI and EEG jeanne t did not show any acute issues. Patient states that the event today's identical to what she was here for 3 days ago. Requesting to be transferred to [facility] after she was told here that her symptoms be better managed that [facility]. Patient states that her symptoms began today at 3:30 PM The ROS documented in this emergency department record has been reviewed and confirmed by me. Those systems with pertinent positive or negative responses have been documented in the HPI. All other systems are other negative and/or noncontributory. - Related Data Home Medications Medication Instructions Recorded Confirmed estradioL [Estrace] 0.5 mg PO DAILY 09/25/17 05/21/24 ALPRAZolam [Xanax] 1 mg PO DAILY PRN 08/07/20 05/21/24 rOPINIRole HCL [Requip] 2 mg PO HS 09/10/22 05/21/24 Cyanocobalamin [Vitamin B-12 1,000 mcg SQ Q30D 10/12/23 05/21/24 Injection] Dicyclomine [Bentyl] 10 mg PO TID PRN 10/12/23 05/21/24 Ezetimibe [Zetia] 10 mg PO DAILY 10/12/23 05/21/24 Sertraline [Zoloft] 150 mg PO DAILY 04/07/24 05/21/24 lisinopriL [Zestril] 10 mg PO DAILY 04/07/24 05/21/24 Famotidine [Pepcid] 20 mg PO BID 05/19/24 05/21/24 OLANZapine [ZyPREXA] 2.5 mg PO HS 05/19/24 05/21/24 Pantoprazole [Protonix] 40 mg PO DAILY 05/19/24 05/21/24 Primidone [Mysoline] 50 mg PO HS 05/19/24 05/21/24 Previous Rx's Medication Instructions Recorded Apixaban [Eliquis] 5 mg PO BID tab 05/20/24 levETIRAcetam [Keppra] 1,000 mg PO Q12HR #60 tab 05/20/24 Allergies Allergy/AdvReac Type Severity Reaction Status Date / Time No Known Allergies Allergy Verified 05/21/24 19:48 Review of Systems ROS Statement: Those systems with pertinent positive or pertinent negative responses have been documented in the HPI. ROS Other: All systems not noted in ROS Statement are negative. Past Medical History Past Medical History: COPD, CVA/TIA, Deep Vein Thrombosis (DVT), GERD/Reflux, Hyperlipidemia, Hypertension, Myocardial Infarction (AL), Pneumonia, Vascular Disorder Additional Past Medical History / Comment(s): Abdominal pain for last 6-7 months. Hx right lower extremity DVT 1996, peripheral vascular disease. Restless leg syndrome, iron deficiency, adrenal gland mass. Hx CVA Aug 2022 - no residual effects. Last Myocardial Infarction Date:: 10/2014 History of Any Multi-Drug Resistant Organisms: C-DIFF, ESBL, MRSA Date of last positivie culture/infection: 2000 MDRO Source:: abdominal wound Past Surgical History: Appendectomy, Bariatric Surgery, Breast Surgery, Cholecystectomy, Heart Catheterization, Hysterectomy, Orthopedic Surgery Additional Past Surgical History / Comment(s): Gastric bypass and subsequent multiple surgeries d/t incision not healing properly and bowel was knicked, exploratory laparotomies, bilateral fem/pop bypass/stents, left wrist fracture with surgery/hardware, bilateral foot bunionectomies, left rotator cuff repair, left knee arthroscopy, left breast benign biopsy, EGD, colonoscopies/benign polypectomy, right collar bone surgery. Past Anesthesia/Blood Transfusion Reactions: No Reported Reaction Past Psychological History: Anxiety, Panic Disorder Smoking Status: Former smoker Past Alcohol Use History: Occasional Past Drug Use History: None Reported - Past Family History Father Additional Family Medical History / Comment(s): STROKE AT AGE 50. Father of pnemonia at the age of 63 yrs. Mother Family Medical History: Cancer Additional Family Medical History / Comment(s): Skin cancer. General Exam - General Exam Comments Initial Comments: PHYSICAL EXAM: General Impression: Alert and oriented x3, not in acute distress HEENT: Normocephalic atraumatic, extra-ocular movements intact, pupils equal and reactive to light bilaterally, mucous membranes moist. Cardiovascular: Heart regular rate and rhythm Chest: Able to complete full sentences, no retractions, no tachypnea Abdomen: abdomen soft, non-tender, non-distended, no organomegaly Musculoskeletal: Pulses present and equal in all extremities, no peripheral edema Motor: no focal deficits noted Neurological: CN II-XII grossly intact, n no movement to gravity of the right remedy, significant drift to the right upper extremity, no other neurodeficits noted. Skin: Intact with no visualized rashes Psych: Normal affect and mood Course Vital Signs 05/21/24 05/21/24 05/21/24 17:05 17:30 18:00 Temperature 97.9 F Pulse Rate 66 Respiratory 18 Rate Blood Pressure 170/85 170/85 162/73 O2 Sat by Pulse 98 95 97 Oximetry 05/21/24 05/22/24 05/22/24 18:30 03:28 08:45 Temperature 98.3 F Pulse Rate 61 74 Respiratory 18 16 Rate Blood Pressure 145/71 156/73 137/96 O2 Sat by Pulse 96 97 95 Oximetry 05/22/24 13:10 Temperature Pulse Rate 77 Respiratory 16 Rate Blood Pressure 135/83 O2 Sat by Pulse 94 L Oximetry - Reevaluation(s) Reevaluation #1: 05/21/24 17:[address] Walker Betancourt who is familiar with the patient. States that he believes that her symptoms are secondary to Federico's paralysis. Recommends patient be given Keppra admitted to the hospital for repeat EEG on . Patient is agreeable with this plan. Medical Decision Making - Medical Decision Making Was pt. sent in by a medical professional or institution (, PA, DIRECTOR ONCOLOGY, urgent care, hospital, or intermediate...) When possible be specific @ -No Did you speak to anyone other than the patient for history (EMS, parent, family, police, friend...)? What history was obtained from this source @ -No Did you review nursing and triage notes (agree or disagree)? Why? @ -I reviewed and agree with nursing and triage notes Were old charts reviewed (outside hosp., previous admission, EMS record, old EKG, old radiological studies, urgent care reports/EKG's, intermediate records)? Report findings @ -No old charts were reviewed Differential Diagnosis (chest pain, altered mental status, abdominal pain women, abdominal pain men, vaginal bleeding, musculoskeletal, weakness, fever, dyspnea, syncope, headache, dizziness, GI bleed, back pain, seizure, CVA, palpatations, mental health)? @ - Differential CVA: Ischemic stroke, hemorrhagic stroke, brain tumor, atypical migraine, Wernicke's encephalopathy, seizure, multiple sclerosis, meningitis, encephalitis, hypoglycemia, Guillain-Barry, electrolytes disturbance, myasthenia gravis.... This is not meant to be an all-inclusive list EKG interpreted by me (3pts min.). @ -My EKG interpretation: Ventricular rate 55, bradycardia,. 177, cures 81, QTc 428. No NH prolongation, no QTC prolongation, no ST or T-wave changes noted. Overall, this EKG is unremarkable X-rays interpreted by me (1pt min.). @ -None done CT interpreted by me (1pt min.). @ -CT scan of the brain shows no acute processes U/S interpreted by me (1pt. min.). @ -None done What testing was considered but not performed or refused? (CT, X-rays, U/S, labs)? Why? @ -None What meds were considered but not given or refused? Why? @ -None Was smoking cessation discussed for >3mins.? @ -No Were there social determinants of health that impacted care today? How? (Homelessness, low income, unemployed, alcoholism, drug addiction, transportation, low edu. Level, literacy, decrease access to med. care, long-term, rehab)? @ -No Was there de-escalation of care discussed even if they declined (Discuss DNR or withdrawal of care, Hospice)? DNR status @ -No What co-morbidities impacted this encounter? (DM, HTN, Smoking, COPD, CAD, Cancer, CVA, ARF, Chemo, Hep., AIDS, mental health diagnosis, sleep apnea, morbid obesity)? @ -None Was patient admitted / discharged? Hospital course, mention meds given and route, prescriptions, significant lab abnormalities, going to OR and other pertinent info. @ -68-year-old female presents emergency department for recurrent right-sided paralysis. Vital signs upon arrival are within acceptable limits. Patient does have spasticity and decreased function of the right arm and right lower extremity. Symptoms seem to be worse in the right leg compared to the right arm. No other focal neurologic deficits noted. Labs are within acceptable limits. CT scan of the brain is negative. Case discussed with neurologist as described above. given 1 g of Keppra. patient admitted. Did you discuss the management of the patient with other professionals (professionals i.e. , PA, DIRECTOR ONCOLOGY, lab, RT, psych nurse, director of social services, regional recruiter, teacher, guest services officer, leather case finisher)? Give summary @ -As above Was critical care preformed (if so, how long)? @ -No Undiagnosed new problem with uncertain prognosis? @ -No Drug Therapy requiring intensive monitoring for toxicity (Heparin, Nitro, Ins ulin, Cardizem)? @ -No Were any procedures done? @ -No Diagnosis/symptom? Acute, or Chronic, or Acute on Chronic? Uncomplicated (without systemic symptoms) or Complicated (systemic symptoms)? @ -Right extremity focal weakness Side effects of treatment? @ -No Exacerbation, Progression, or Severe Exacerbation? @ -No Poses a threat to life or bodily function? How? (Chest pain, [place], AL, pneumonia, PE, COPD, DKA, ARF, appy, cholecystitis, CVA, Diverticulitis, Homicidal, Suicidal, threat to staff... and all critical care pts) @ -yes - Lab Data Result diagrams: 05/22/24 05:38 05/24/24 07:43 Lab Results 05/21/24 05/21/24 Range/Units 19:37 19:37 WBC 4.1 (3.8-10.6) k/uL RBC 4.47 (3.80-5.40) m/uL Hgb 13.6 (11.4-16.0) gm/dL Hct 40.6 (34.0-46.0) % MCV 90.8 (80.0-100.0) fL MCH 30.5 (25.0-35.0) pg MCHC 33.6 (31.0-37.0) g/dL RDW 13.5 (11.5-15.5) % Plt Count 107 L (150-450) k/uL MPV 9.9 Neutrophils % 62 % Lymphocytes % 27 % Monocytes % 8 % Eosinophils % 3 % Basophils % 0 % Neutrophils # 2.5 (1.3-7.7) k/uL Lymphocytes # 1.1 (1.0-4.8) k/uL Monocytes # 0.3 (0-1.0) k/uL Eosinophils # 0.1 (0-0.7) k/uL Basophils # 0.0 (0-0.2) k/uL Sodium 138 (137-145) mmol/L Potassium 4.6 (3.5-5.1) mmol/L Chloride 108 H (98-107) mmol/L Carbon Dioxide 20 L (22-30) mmol/L Anion Gap 10 mmol/L BUN 19 H (7-17) mg/dL Creatinine 0.98 (0.52-1.04) mg/dL Est GFR (CKD-EPI)AfAm 68 (>60 ml/min/1.73 sqM) Est GFR (CKD-EPI)NonAf 59 (>60 ml/min/1.73 sqM) Glucose 89 (74-99) mg/dL Calcium 9.2 (8.4-10.2) mg/dL Disposition Clinical Impression: Right sided weakness Disposition: ADMITTED IP TO THIS [facility] Condition: Fair Decision Time: 20:48
[2024-05-21] MEDS: levETIRAcetam IV 1,000 MG in SODIUM CHLORIDE 0.9% 250 ML IVPB ONE (19:33)
[2024-05-21 20:08] LABS: African American GFR (CKD) 68 (>60 ml/min/1.73 sqM); Anion Gap 10 mmol/L; Blood Urea Nitrogen 19 mg/dL (7-17); Calcium 9.2 mg/dL (8.4-10.2); Carbon Dioxide 20 mmol/L (22-30); Chloride 108 mmol/L (98-107); Glucose 89 mg/dL (74-99); Non-African American GFR(CKD) 59 (>60 ml/min/1.73 sqM); Sodium 138 mmol/L (137-145)
[2024-05-21 20:21] LABS: Potassium 4.6 mmol/L (3.5-5.1)
[2024-05-21] MEDS ORDERED: NALOXONE 0.4 MG/ML 1 ML VIAL IV PRN (20:44)
[2024-05-21] MEDS ORDERED: DICYCLOMINE 10 MG CAP PO PRN (20:53)
--- NOTE | 2024-05-21 20:54 | CT ---
EXAMINATION TYPE: CT brain wo con DATE OF EXAM: 05/21/2024 COMPARISON: 05/18/2024 HISTORY: paralysis of right side CT DLP: 1214.[address] of the brain was performed. The ventricles, basal cisterns and sulci overlying the cerebral convexities demonstrate mild enlargem ent. Remote insult right cerebellum. There is no evidence for intracranial hemorrhage or sulcal effacement. There is decreased attenuation about the periventricular white matter and deep white matter of both c erebral hemispheres, compatible with chronic small vessel ischemia. Differential diagnosis does inclu de demyelination. No mass effects are seen.No midline shift. Osseous calvarium is intact. If symptoms persist consider MRI. IMPRESSION: 1. Age related atrophic and chronic small vessel ischemic change without acute intracranial process s een at this time.
[2024-05-21 21:11] LABS: Basophils % (A) 0 %; Eosinophils # (A) 0.1 k/uL (0-0.7); Eosinophils % (A) 3 %; HCT 40.6 % (34.0-46.0); HGB 13.6 gm/dL (11.4-16.0); Lymphocytes # (A) 1.1 k/uL (1.0-4.8); Lymphocytes % (A) 27 %; MCH 30.5 pg (25.0-35.0); MCHC 33.6 g/dL (31.0-37.0); MCV 90.8 fL (80.0-100.0); Mean Platelet Volume 9.9; Monocytes # (A) 0.3 k/uL (0-1.0); Monocytes % (A) 8 %; Neutrophils # (A) 2.5 k/uL (1.3-7.7); Neutrophils % (A) 62 %; Platelet Count 107 k/uL (150-450); RBC 4.47 m/uL (3.80-5.40); RDW 13.5 % (11.5-15.5); WBC 4.1 k/uL (3.8-10.6)
[2024-05-21 21:16] LABS: Basophils % (A) 1 %; Eosinophils # (A) 0.1 k/uL (0-0.7); Eosinophils % (A) 3 %; HCT 41.7 % (34.0-46.0); HGB 13.3 gm/dL (11.4-16.0); Lymphocytes # (A) 1.2 k/uL (1.0-4.8); Lymphocytes % (A) 30 %; MCH 29.8 pg (25.0-35.0); Mean Platelet Volume 7.7; Monocytes # (A) 0.2 k/uL (0-1.0); Monocytes % (A) 5 %; Neutrophils # (A) 2.4 k/uL (1.3-7.7); Neutrophils % (A) 59 %; Platelet Count 128 k/uL (150-450); RBC 4.48 m/uL (3.80-5.40); RDW 13.3 % (11.5-15.5)
[2024-05-21] MEDS: levETIRAcetam 500 MG TAB PO SCH (22:37)
[2024-05-21] MEDS: APIXABAN 5 MG TAB PO SCH (22:37)
[2024-05-21] MEDS: FAMOTIDINE 20 MG TAB PO SCH (22:41)
[2024-05-21] MEDS: OLANZapine 2.5 MG TAB PO SCH (22:41)
[2024-05-21] MEDS: PRIMIDONE 50 MG TAB PO SCH (22:41)
[2024-05-21] MEDS: CYANOCOBALAMIN 1,000 MCG/ML 1 ML VIAL SQ SCH (22:45)
[2024-05-21] MEDS: SODIUM CHLORIDE 0.9% 1,000 ML IV SCH (22:46)
[2024-05-22 06:37] LABS: African American GFR (CKD) 78 (>60 ml/min/1.73 sqM); Anion Gap 9 mmol/L; Blood Urea Nitrogen 21 mg/dL (7-17); Calcium 8.8 mg/dL (8.4-10.2); Carbon Dioxide 19 mmol/L (22-30); Chloride 110 mmol/L (98-107); Glucose 93 mg/dL (74-99); Non-African American GFR(CKD) 68 (>60 ml/min/1.73 sqM); Potassium 4.4 mmol/L (3.5-5.1); Sodium 138 mmol/L (137-145)
[2024-05-22 06:39] LABS: Basophils % (A) 0 %; Eosinophils # (A) 0.1 k/uL (0-0.7); Eosinophils % (A) 2 %; HCT 37.8 % (34.0-46.0); HGB 12.9 gm/dL (11.4-16.0); Lymphocytes # (A) 1.1 k/uL (1.0-4.8); Lymphocytes % (A) 24 %; MCH 31.5 pg (25.0-35.0); MCHC 34.2 g/dL (31.0-37.0); MCV 92.1 fL (80.0-100.0); Monocytes # (A) 0.3 k/uL (0-1.0); Monocytes % (A) 7 %; Neutrophils % (A) 66 %; RBC 4.11 m/uL (3.80-5.40); RDW 13.5 % (11.5-15.5); WBC 4.5 k/uL (3.8-10.6)
[2024-05-22 08:23] LABS: Platelet Count 97 k/uL (150-450)
[2024-05-22 08:24] LABS: RBC Morphology Normal
[2024-05-22] MEDS: EZETIMIBE 10 MG TAB PO SCH (08:36)
[2024-05-22] MEDS: FAMOTIDINE 20 MG TAB PO SCH (08:36)
[2024-05-22] MEDS: lisinopriL 10 MG TAB PO SCH (08:37)
[2024-05-22] MEDS: SERTRALINE 50 MG TAB PO SCH (08:37)
[2024-05-22] MEDS: PANTOPRAZOLE 40 MG TABLET PO SCH (08:38)
--- NOTE | 2024-05-22 14:24 | P.CNNES ---
History of Present Illness Consult date: 05/22/24 Requesting physician: Ankit Luu Reason for Consult: seizure vs cva History of Present Illness: This is a 68-year-old woman history of right cerebellar stroke and small focus over the right occipital, hypertension, myocardial infarction, gastric bypass who returned back to the emergencyd department for recurrent right leg weakness. I saw the patient the day prior last in our facility because of her transient ri ght-sided weakness which resolved and I felt was due to seizure paralysis and I placed the patient on Keppra 1000 mg twice daily on discharge. Routine EEG which was normal. She had MRI of the brain which was unremarkable for any acute or subacute process. Her symptoms has resolved before leaving the hospital recently. Then she stated that she came back because yesterday around 4 PM she noticed that she is having cramping of the right calf then she felt was stiff and weak she called EMS and as a result came to our facility. He stated that she did not have any jerking extremity over her right lower extremity. She feels it is a cramping pain and not pain in the calf. She stated that she had similar episode like this in 1996 in which she was told that she has peripheral arterial disease and required an immediate angioplasty the next day. Her psychiatrist and he felt may be some of the psych medication could be the result of her jerking extremity he modified the medications according to her. She has been compliant taking the Keppra at home. She denies of any numbness. Denies of any headache. Denies of any speech difficulty. Please refer to my notes from the recent hospitalizations for further details. Some of the work-up during this hospital visit consisted of: Plateletes Is 97,000. Sodium, calcium, creatinine is within normal limits CT of the head is reported as age-related atrophy and chronic small vessel ischemic change without acute intracranial process seen at this time. I personally reviewed CT and agree there is no acute proces. Review of Systems The positive and negative as per HPI. Past Medical History Past Medical History: COPD, CVA/TIA, Deep Vein Thrombosis (DVT), GERD/Reflux, Hyperlipidemia, Hypertension, Myocardial Infarction ([place]), Pneumonia, Vascular Disorder Additional Past Medical History / Comment(s): Abdominal pain for last 6-7 months. Hx right lower extremity DVT 1996, peripheral vascular disease. Restless leg syndrome, iron deficiency, adrenal gland mass. Hx CVA Aug 2022 - no residual effects. Last Myocardial Infarction Date:: 10/2014 History of Any Multi-Drug Resistant Organisms: C-DIFF, ESBL, MRSA Date of last positivie culture/infection: 2000 MDRO Source:: abdominal wound Past Surgical History: Appendectomy, Bariatric Surgery, Breast Surgery, Cholecystectomy, Heart Catheterization, Hysterectomy, Orthopedic Surgery Additional Past Surgical History / Comment(s): Gastric bypass and subsequent multiple surgeries d/t incision not healing properly and bowel was knicked, exploratory laparotomies, bilateral fem/pop bypass/stents, left wrist fracture with surgery/hardware, bilateral foot bunionectomies, left rotator cuff repair, left knee arthroscopy, left breast benign biopsy, EGD, colonoscopies/benign polypectomy, right collar bone surgery. Past Anesthesia/Blood Transfusion Reactions: No Reported Reaction Past Psychological History: Anxiety, Panic Disorder Additional Psychological History / Comment(s): Pt resides with her spouse. She states she has high anxiety. Pt uses no assistive device. She drives. Smoking Status: Former smoker Past Alcohol Use History: Occasional Additional Past Alcohol Use History / Comment(s): Started smoking in 1973 and quit in 2008, smoked 1 ppd. Past Drug Use History: None Reported - Past Family History Father Additional Family Medical History / Comment(s): STROKE AT AGE 50. Father of pnemonia at the age of 63 yrs. Mother Family Medical History: Cancer Additional Family Medical History / Comment(s): Skin cancer. Medications and Allergies Home Medications Medication Instructions Recorded Confirmed Type estradioL [Estrace] 0.5 mg PO DAILY 09/25/17 05/21/24 History ALPRAZolam [Xanax] 1 mg PO DAILY PRN 08/07/20 05/21/24 History rOPINIRole HCL [Requip] 2 mg PO HS 09/10/22 05/21/24 History Cyanocobalamin [Vitamin B-12 1,000 mcg SQ Q30D 10/12/23 05/21/24 History Injection] Dicyclomine [Bentyl] 10 mg PO TID PRN 10/12/23 05/21/24 History Ezetimibe [Zetia] 10 mg PO DAILY 10/12/23 05/21/24 History Sertraline [Zoloft] 150 mg PO DAILY 04/07/24 05/21/24 History lisinopriL [Zestril] 10 mg PO DAILY 04/07/24 05/21/24 History Famotidine [Pepcid] 20 mg PO BID 05/19/24 05/21/24 History OLANZapine [ZyPREXA] 2.5 mg PO HS 05/19/24 05/21/24 History Pantoprazole [Protonix] 40 mg PO DAILY 05/19/24 05/21/24 History Primidone [Mysoline] 50 mg PO HS 05/19/24 05/21/24 History Apixaban [Eliquis] 5 mg PO BID tab 05/20/24 05/21/24 Rx levETIRAcetam [Keppra] 1,000 mg PO Q12HR #60 tab 05/20/24 05/21/24 Rx Allergies Allergy/AdvReac Type Severity Reaction Status Date / Time No Known Allergies Allergy Verified 05/21/24 19:48 Physical Examination - Vital Signs Vital Signs: Vital Signs Temp Pulse Resp BP Pulse Ox 05/22/24 13:10 77 16 135/83 94 L 05/22/24 08:45 98.3 F 74 16 137/96 95 05/22/24 03:28 61 18 156/73 97 05/21/24 18:30 145/71 96 05/21/24 18:00 162/73 97 05/21/24 17:30 170/85 95 05/21/24 17:05 97.9 F 66 18 170/85 98 Intake and Output 05/21/24 05/22/24 05/22/24 22:59 06:59 14:59 Other: Weight 81.647 kg 81.647 kg GENERAL: The patient is lying in bed and is not in acute distress. Cardiovascular: I could not appreciate pulses in lowers at ankles. NEUROLOGICAL: Higher mental function: The patient is awake, alert, oriented to self, place and time. Patient is following commands. No aphasia and no neglect. Cranial nerves: The pupils are round, equal and reactive to light and accommodation. Visual valadez are full to confrontation throughout. Extraocular movement is intact no nystagmus is noted. Facial sensation is normal to touch throughout. The facial strength is normal throughout. Hearing is normal bilaterally to hand rub. Tongue is midline and moved [id number] without any difficulty. No dysarthria is noted. Shoulder shrug is normal bilaterally. Motor: The strength is right lower extremity is 2-3/5 and seems increase tone. Right upper extremity is 4+. Otherwise 5 over 5 throughout left side. Normal tone and bulk. Cerebellum: Normal finger to nose bilaterally. Sensation: Sensation is normal to touch throughout. Reflexes (right/left): 2+ throughout. Plantars are mute bilaterally. Results - Laboratory Findings CBC and BMP: 05/22/24 05:38 05/22/24 05:38 Abnormal Lab Findings: Abnormal Labs 05/21/24 05/21/24 05/21/24 19:37 19:37 21:11 Plt Count 107 L 128 L Chloride 108 H Carbon Dioxide 20 L BUN 19 H 05/22/24 05/22/24 05:38 05:38 Plt Count 97 L Chloride 110 H Carbon Dioxide 19 L BUN 21 H Assessment and Plan Assessment: This is a 68-year-old woman with history of right cerebellar stroke and small focus over the right occipital, hypertension, myocardial infarction, gastric bypass who present back because of right-sided weakness mostly right lower that started yesterday at 4pm. 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 This time she is concerned about peripheral artery disease in right lower since has similar presentation. Recurrent Acute right sided weakness, Involving lower extremity more than upper. I still continue probable seizure with Federico's paralysis. But patient is concerned about peripheral arterial disease in lower. But if peripheral arterial disease in lower than why involving right upper. Had recent MRI Brain and EEG which are normal. Is on Keppra. 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 Per medical record patient has history of restless leg syndrome. Underlying history of hypertension Underlying history of myocardial infarction History vascular disease History of gastric bypass Plan: Will go up on Keppra from 1gm bid to 1500mg bid. Will get repeat EEG. Recommend a sleep deprived EEG as outpatient vs rn long term care EEG as outpatient. This should be coordinated by her neurologist or PCP. Seizure Precaution and seizure pads She is on Eliquis. She is on Zetia. Recommend the patient to follow-up with interventional neurologist regarding bilateral frontal developmental venous anomalies noted on MRI Brain. I contacted our interventional neurologist (Dr. Ashford) about case and pending response. Patient was notified that per [place] DMV, because of seizure, to avoid driving for 6 month until no further episodes from last episode, avoid heights, swim unassisted or use heavy machinery. Continue neurochecks Cardiac monitoring PT OT consulted Vascular surgery team is consulted for right lower concern for Peripheral arterial disease. Will defer rest of the medical management the primary team and other specialists Upon discharge, recommend the patient to follow-up with neurologist as outpatient within 1-2 weeks. The plan is discussed with patient, ED physician and primary team. Thank you for the consultation. Dr. Florentino will resume neurology service tomorrow A.M. Time with Patient: Greater than 30
--- NOTE | 2024-05-22 14:40 | P.HPIM ---
History of Present Illness H&P Date: 05/21/24 Chief Complaint: Right-sided weakness 68-year-old female she was just discharged from the hospital yesterday. Patient was admitted 3 days ago for strokelike symptoms. She was seen and evaluated by neurology. Patient had MRI and EEG that did not show any acute issues. Patient states that the event today's identical to what she was here for 3 days ago. Requesting to be transferred to [facility] after she was told here that her symptoms be better managed that [facility]. Patient states that her symptoms began today at 3:30 PM Blood work completed in ED reveals a WBC of 4.5, hemoglobin of 12.9 and platelet count of 107, sodium 138, potassium 4.6, BUNs/creatinine of 19/0.98 EKG interpretation: Ventricular rate 55, bradycardia,. 177, cures 81, QTc 428. No AL prolongation, no QTC prolongation, no ST or T-wave changes noted. Overall, this EKG is unremarkable -CT scan of the brain shows no acute processes --Patient was discussed with neurology and was recommended to be given Keppra 1 g IV x 1 and then continue with 1000 mg IV every 12 hours -- Patient is being admitted for further neurological evaluation Review of Systems REVIEW OF SYSTEMS: CONSTITUTIONAL: No fever, no malaise, no fatigue. HEENT: No recent visual problems or hearing problems. Denied any sore throat. CARDIOVASCULAR: No chest pain, orthopnea, PND, no palpitations, no syncope. PULMONARY: No shortness of breath, no cough, no hemoptysis. GASTROINTESTINAL: No diarrhea, no nausea, no vomiting, no abdominal pain. NEUROLOGICAL: No headaches, no weakness, no numbness. HEMATOLOGICAL: Denies any bleeding or petechiae. GENITOURINARY: Denies any burning micturition, frequency, or urgency. MUSCULOSKELETAL/RHEUMATOLOGICAL: Denies any joint pain, swelling, or any muscle pain. ENDOCRINE: Denies any polyuria or polydipsia. The rest of the 14-point review of systems is negative. Past Medical History Past Medical History: COPD, CVA/TIA, Deep Vein Thrombosis (DVT), GERD/Reflux, Hyperlipidemia, Hypertension, Myocardial Infarction ([place]), Pneumonia, Vascular Disorder Additional Past Medical History / Comment(s): Abdominal pain for last 6-7 months. Hx right lower extremity DVT 1996, peripheral vascular disease. Restless leg syndrome, iron deficiency, adrenal gland mass. Hx CVA Aug 2022 - no residual effects. Last Myocardial Infarction Date:: 10/2014 History of Any Multi-Drug Resistant Organisms: C-DIFF, ESBL, MRSA Date of last positivie culture/infection: 2000 MDRO Source:: abdominal wound Past Surgical History: Appendectomy, Bariatric Surgery, Breast Surgery, Cholecystectomy, Heart Catheterization, Hysterectomy, Orthopedic Surgery Additional Past Surgical History / Comment(s): Gastric bypass and subsequent multiple surgeries d/t incision not healing properly and bowel was knicked, exploratory laparotomies, bilateral fem/pop bypass/stents, left wrist fracture with surgery/hardware, bilateral foot bunionectomies, left rotator cuff repair, left knee arthroscopy, left breast benign biopsy, EGD, colonoscopies/benign polypectomy, right collar bone surgery. Past Anesthesia/Blood Transfusion Reactions: No Reported Reaction Past Psychological History: Anxiety, Panic Disorder Smoking Status: Former smoker Past Alcohol Use History: Occasional Past Drug Use History: None Reported - Past Family History Father Additional Family Medical History / Comment(s): STROKE AT AGE 50. Father of pnemonia at the age of 63 yrs. Mother Family Medical History: Cancer Additional Family Medical History / Comment(s): Skin cancer. Medications and Allergies Home Medications Medication Instructions Recorded Confirmed Type estradioL [Estrace] 0.5 mg PO DAILY 09/25/17 05/21/24 History ALPRAZolam [Xanax] 1 mg PO DAILY PRN 08/07/20 05/21/24 History rOPINIRole HCL [Requip] 2 mg PO HS 09/10/22 05/21/24 History Cyanocobalamin [Vitamin B-12 1,000 mcg SQ Q30D 10/12/23 05/21/24 History Injection] Dicyclomine [Bentyl] 10 mg PO TID PRN 10/12/23 05/21/24 History Ezetimibe [Zetia] 10 mg PO DAILY 10/12/23 05/21/24 History Sertraline [Zoloft] 150 mg PO DAILY 04/07/24 05/21/24 History lisinopriL [Zestril] 10 mg PO DAILY 04/07/24 05/21/24 History Famotidine [Pepcid] 20 mg PO BID 05/19/24 05/21/24 History OLANZapine [ZyPREXA] 2.5 mg PO HS 05/19/24 05/21/24 History Pantoprazole [Protonix] 40 mg PO DAILY 05/19/24 05/21/24 History Primidone [Mysoline] 50 mg PO HS 05/19/24 05/21/24 History Apixaban [Eliquis] 5 mg PO BID tab 05/20/24 05/21/24 Rx levETIRAcetam [Keppra] 1,000 mg PO Q12HR #60 tab 05/20/24 05/21/24 Rx Allergies Allergy/AdvReac Type Severity Reaction Status Date / Time No Known Allergies Allergy Verified 05/21/24 19:48 Physical Exam Vitals: Vital Signs Temp Pulse Resp BP Pulse Ox 05/21/24 18:30 145/71 96 05/21/24 18:00 162/73 97 05/21/24 17:30 170/85 95 05/21/24 17:05 97.9 F 66 18 170/85 98 Intake and Output 05/21/24 05/21/24 05/21/24 06:59 14:59 22:59 Other: Weight 81.647 kg General Impression: Alert and oriented x3, not in acute distress HEENT: Normocephalic atraumatic, extra-ocular movements intact, pupils equal and reactive to light bilaterally, mucous membranes moist. Cardiovascular: Heart regular rate and rhythm Chest: Able to complete full sentences, no retractions, no tachypnea Abdomen: abdomen soft, non-tender, non-distended, no organomegaly Musculoskeletal: Pulses present and equal in all extremities, no peripheral edema Motor: no focal deficits noted Neurological: CN II-XII grossly intact, n no movement to gravity of the right remedy, significant drift to the right upper extremity, no other neurodeficits noted. Skin: Intact with no visualized rashes Psych: Normal affect and mood Results CBC & Chem 7: 05/22/24 05:38 05/22/24 05:38 Labs: Abnormal Lab Results - Last 24 Hours (Table) 05/21/24 Range/Units 19:37 Chloride 108 H (98-107) mmol/L Carbon Dioxide 20 L (22-30) mmol/L BUN 19 H (7-17) mg/dL Assessment and Plan Assessment: 1. Right-sided weakness; -Patient had CT of the head completed in ED which is negative for any acute process --Patient had complete neurological workup including MRI of the brain and EEG on last admission which was negative; CTA and carotid Doppler legs did not reveal any significant carotid stenosis -- Patient will be admitted for further neurology evaluation 2. 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 nightly -- EEG completed on last admission which was normal 3. Hypertension; lisinopril 10 mg daily 4. Hyperlipidemia; Zetia 10 mg daily 5. Atrial fibrillation; patient is currently on Eliquis 5 mg twice daily 6. History of peripheral vascular occlusive disease; patient does report history of angiogram with intervention in the past; remains on statin therapy DVT prophylaxis; SCDs/Eliquis CODE STATUS; full code
--- NOTE | 2024-05-22 20:34 | US ---
EXAMINATION TYPE: US arterial LE multi level DATE OF EXAM: 05/22/2024 8:21 PM CLINICAL INDICATION: Female, 68 years old with history of rule out thrombus; rt leg numbness History of: Smoker: previous Hypertension: Yes Diabetic: No Hyperlipidemia: Yes TIA/CVA: Yes Previous Vascular Surgery: Yes CAD: No NV: Yes Vascular Ulcers: No Claudication: No Gangrene: No Doppler Waveforms: Right: Biphasic Left: Monophasic Ankle-Brachial Indices: Right: 0.56 Left: 0.82 (Vessel hardening > 1.4; Normal 0.9 - 1.4, Moderate 0.7 - 0.9, Severe 0.5-0.7) Toe Brachial Indices: Right: 0.38 Left: 0.48 IMPRESSION: Severe right and moderate left peripheral vascular disease by ankle brachial indices.
[2024-05-22] MEDS: ALPRAZolam 1 MG TAB PO PRN (21:03)
[2024-05-23 10:21] LABS: African American GFR (CKD) 73 (>60 ml/min/1.73 sqM); Anion Gap 8 mmol/L; Blood Urea Nitrogen 18 mg/dL (7-17); Calcium 8.4 mg/dL (8.4-10.2); Carbon Dioxide 18 mmol/L (22-30); Chloride 111 mmol/L (98-107); Glucose 235 mg/dL (74-99); Non-African American GFR(CKD) 63 (>60 ml/min/1.73 sqM); Sodium 137 mmol/L (137-145)
--- NOTE | 2024-05-23 10:47 | P.PN ---
Subjective 68-year-old female she was just discharged from the hospital yesterday. Patient was admitted 3 days ago for strokelike symptoms. She was seen and evaluated by neurology. Patient had MRI and EEG that did not show any acute issues. Patient states that the event today's identical to what she was here for 3 days ago. Requesting to be transferred to [facility] after she was told here that her symptoms be better managed that [facility]. Patient states that her symptoms began today at 3:30 PM Blood work completed in ED reveals a WBC of 4.5, hemoglobin of 12.9 and platelet count of 107, sodium 138, potassium 4.6, BUNs/creatinine of 19/0.98 EKG interpretation: Ventricular rate 55, bradycardia,. 177, cures 81, QTc 428. No GA prolongation, no QTC prolongation, no ST or T-wave changes noted. Overall, this EKG is unremarkable -CT scan of the brain shows no acute processes --Patient was discussed with neurology and was recommended to be given Keppra 1 g IV x 1 and then continue with 1000 mg IV every 12 hours -- Patient is being admitted for further neurological evaluation 05/23/24 This is a pleasant 68 years old female who presents with recurrent right leg weakness versus Federico's paralysis. Already evaluated by neurologist and she was started on Keppra 1000 during last admission, this admission it was increased to 1500 mg. However also there was suspicion of peripheral vascular disease. Patient she is supposed to do workup as outpatient Vascular surgery consult was obtained and arterial ultrasound of the lower extremity showing severe disease in the right side and moderate disease on the left side. However on examination there is no induration pallor different in temperature or other significant abnormality Patient yesterday she said having moving her leg for 2 hours 5 to 7 PM and then become paralyzed again as she described it as did per patient. Currently she has limited movement in her right leg, she states from the right knee down. Currently she is on Eliquis 5 mg for her history of A-fib also she has history of PE and DVT. Also I informed the patient about neurologist recommendation to follow-up with Dr. Desai interventional radiologist for her brain developmental venous anomaly and she verbalized understanding and acceptance She denies chest pain or dyspnea, no change in urine or bowel habits. Patient looks pleasant and relaxed. She is hemodynamically stable. She has unremarkable CBC, BMP. Review of systems CONSTITUTIONAL: No fever, no malaise, no fatigue. HEENT: No recent visual problems or hearing problems. Denied any sore throat. CARDIOVASCULAR: No orthopnea, PND, no palpitations, no syncope. PULMONARY: No shortness of breath, no cough, no hemoptysis. GASTROINTESTINAL: No diarrhea, no nausea, no vomiting, no abdominal pain. Normoactive bowel sounds. NEUROLOGICAL: No headaches, no weakness, no numbness. Active Medications Generic Name Dose Route Start Last Admin Trade Name Freq PRN Reason Stop Dose Admin Alprazolam 1 mg 05/21/24 20:53 05/22/24 21:03 Alprazolam 1 Mg Tab PO 1 mg DAILY PRN Administration Anxiety Apixaban 5 mg 05/21/24 21:00 05/23/24 09:44 Apixaban 5 Mg Tab PO 5 mg BID VARUN Administration Protocol Cyanocobalamin 1,000 mcg 05/21/24 21:00 05/21/24 22:45 Cyanocobalamin 1,000 Mcg/Ml 1 Ml Vial SQ Not Given Q30D VARUN Dicyclomine HCl 10 mg 05/21/24 20:53 Dicyclomine 10 Mg Cap PO TID PRN GI Upset Ezetimibe 10 mg 05/22/24 09:00 05/23/24 09:44 Ezetimibe 10 Mg Tab PO 10 mg DAILY VARUN Administration Estradiol 0.5 mg 05/22/24 09:00 05/23/24 09:44 Estradiol 0.5 Mg Tab PO 0.5 mg DAILY VARUN Administration Famotidine 20 mg 05/22/24 09:00 05/23/24 09:44 Famotidine 20 Mg Tab PO 20 mg DAILY VARUN Administration Sodium Chloride 1,000 mls @ 20 mls/hr 05/21/24 20:45 05/23/24 00:26 Saline 0.9% IV Not Given .Q24H VARUN Levetiracetam 1,500 mg 05/22/24 21:00 05/23/24 09:44 Levetiracetam 750 Mg Tab PO 1,500 mg Q12HR VARUN Administration Lisinopril 10 mg 05/22/24 09:00 05/23/24 09:44 Lisinopril 10 Mg Tab PO 10 mg DAILY VARUN Administration Naloxone HCl 0.2 mg 05/21/24 20:44 Naloxone 0.4 Mg/Ml 1 Ml Vial IV Q2M PRN Opioid Reversal Olanzapine 2.5 mg 05/21/24 21:00 05/22/24 21:32 Olanzapine 2.5 Mg Tab PO 2.5 mg HS VARUN Administration Pantoprazole Sodium 40 mg 05/22/24 09:00 05/23/24 09:44 Pantoprazole 40 Mg Tablet PO 40 mg DAILY VARUN Administration Primidone 50 mg 05/21/24 21:00 05/22/24 21:03 Primidone 50 Mg Tab PO 50 mg HS VARUN Administration Ropinirole HCl 2 mg 05/21/24 21:00 05/22/24 21:03 Ropinirole Hcl 1 Mg Tab PO 2 mg HS VARUN Administration Sertraline HCl 150 mg 05/22/24 09:00 05/23/24 09:45 Sertraline 50 Mg Tab PO 150 mg DAILY VARUN Administration Objective - Vital Signs Vital signs: Vital Signs Temp 98.2 F 05/22/24 20:00 Pulse 56 L 05/23/24 04:00 Resp 16 05/23/24 04:00 BP 109/62 05/23/24 04:00 Pulse Ox 92 L 05/23/24 04:00 FiO2 Intake & Output 05/22/24 05/23/24 05/23/24 18:59 06:59 18:59 Intake Total 360 Output Total 300 600 Balance -300 -600 360 Weight 81.647 kg Intake: Oral 360 Output: Urine 300 600 Other: Voiding Method External Catheter External Catheter - Exam GENERAL: The patient is alert and oriented x3, not in any acute distress. Well developed, well nourished. HEENT: Pupils are round and equally reacting to light. EOMI. No scleral icterus. No conjunctival pallor. Normocephalic, atraumatic. No pharyngeal erythema. No thyromegaly. CARDIOVASCULAR: S1 and S2 present. No murmurs, rubs, or gallops. PULMONARY: Chest is clear to auscultation, no wheezing , no crackles. ABDOMEN: Soft, nontender, nondistended, normoactive bowel sounds. No palpable or ganomegaly. MUSCULOSKELETAL: No joint swelling or deformity. EXTREMITIES: No cyanosis, clubbing, or pedal edema. NEUROLOGICAL: Gross neurological examination did not reveal any focal deficits. SKIN: No rashes. no petechiae. - Labs CBC & Chem 7: 05/22/24 05:38 05/23/24 09:27 Labs: Abnormal Lab Results - Last 24 Hours (Table) 05/23/24 Range/Units 09:27 Chloride 111 H (98-107) mmol/L Carbon Dioxide 18 L (22-30) mmol/L BUN 18 H (7-17) mg/dL Glucose 235 H (74-99) mg/dL Assessment and Plan Assessment: Right lower extremity weakness, 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 Continue same treatment. Continue with symptomatic treatment. Resume home medication. Monitor labs and vitals. DVT and GI prophylaxis. Further recommendations as per clinical course of the patient DVT prophylaxis: Eliquis GI Prophylaxis: Pepcid PT/OT: Pending Prognosis is guarded
--- NOTE | 2024-05-23 12:37 | P.PN ---
Subjective Progress Note Date: 05/22/24 68-year-old female she was just discharged from the hospital yesterday. Patient was admitted 3 days ago for strokelike symptoms. She was seen and evaluated by neurology. Patient had MRI and EEG that did not show any acute issues. Patient states that the event today's identical to what she was here for 3 days ago. Requesting to be transferred to [facility] after she was told here that her symptoms be better managed that [facility]. Patient states that her symptoms began today at 3:30 PM Blood work completed in ED reveals a WBC of 4.5, hemoglobin of 12.9 and platelet count of 107, sodium 138, potassium 4.6, BUNs/creatinine of 19/0.98 EKG interpretation: Ventricular rate 55, bradycardia,. 177, cures 81, QTc 428. No [place] prolongation, no QTC prolongation, no ST or T-wave changes noted. Overall, this EKG is unremarkable -CT scan of the brain shows no acute processes --Patient was discussed with neurology and was recommended to be given Keppra 1 g IV x 1 and then continue with 1000 mg IV every 12 hours -- Patient is being admitted for further neurological evaluation 05/22/2024 Patient is seen and evaluated in ER at bedside; awaits bed opening on [facility] medical floor --Patient reports some tingling and numbness in right leg -- Has been evaluated by neurology and is recommended to continue with Keppra 1000 mg p.o. every 12 hours for probable seizures with Federico's paralysis --Patient this morning reports some calf tenderness and pain in right lower extremity On physical examination patient's right lower extremity is cold to touch with faint pulses on the left side; pulses not palpable on the right --Patient is currently on Eliquis; will hold off on IV heparin at this time and consult vascular surgery to rule out limb ischemia; patient is well-known to Dr. Tovar Objective - Vital Signs Vital signs: Vital Signs Temp 98.3 F 05/22/24 08:45 Pulse 74 05/22/24 08:45 Resp 16 05/22/24 08:45 BP 137/96 05/22/24 08:45 Pulse Ox 95 05/22/24 08:45 FiO2 Intake & Output 05/21/24 05/22/24 05/22/24 18:59 06:59 18:59 Weight 81.647 kg 81.647 kg - Exam - Constitutional General appearance: Present: average body habitus, cooperative, no acute distress - EENT Eyes: Present: anicteric sclerae, EOMI, PERRLA, normal appearance ENT: Present: hearing grossly normal, normal oropharynx Ears: bilateral: normal - Neck Neck: Present: normal ROM. Absent: lymphadenopathy, rigidity, thyromegaly Carotids: negative: bruit present Thyroid: bilateral: normal size, negative: enlarged, nodule - Respiratory Respiratory: bilateral: CTA, negative: rales, rhonchi, wheezing - Cardiovascular Rhythm: regular Heart sounds: normal: S1, S2 Abnormal Heart Sounds: Absent: systolic murmur, diastolic murmur - Gastrointestinal General gastrointestinal: Present: normal bowel sounds, soft. Absent: distended, organomegaly, tenderness - Genitourinary Genitourinary Comment(s): deferred - Integumentary Integumentary: Present: normal turgor. Absent: jaundiced, rash, ulcer - Neurologic Neurologic: Present: CNII-XII intact. Absent: focal deficits - Musculoskeletal Musculoskeletal: Present: gait normal, strength equal bilaterally - Psychiatric Psychiatric: Present: A&O x's 3, appropriate affect, intact judgment & insight - Labs CBC & Chem 7: 05/22/24 05:38 05/23/24 09:27 Labs: Abnormal Lab Results - Last 24 Hours (Table) 05/21/24 05/21/24 05/21/24 Range/Units 19:37 19:37 21:11 Plt Count 107 L 128 L (150-450) k/uL Chloride 108 H (98-107) mmol/L Carbon Dioxide 20 L (22-30) mmol/L BUN 19 H (7-17) mg/dL 05/22/24 05/22/24 Range/Units 05:38 05:38 Plt Count 97 L (150-450) k/uL Chloride 110 H (98-107) mmol/L Carbon Dioxide 19 L (22-30) mmol/L BUN 21 H (7-17) mg/dL Assessment and Plan Assessment: 1. Right-sided weakness; -Patient had CT of the head completed in ED which is negative for any acute process --Patient had complete neurological workup including MRI of the brain and EEG on last admission which was negative; CTA and carotid Doppler legs did not reveal any significant carotid stenosis -- Patient will be admitted for further neurology evaluation 2. 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 nightly -- EEG completed on last admission which was normal 3. Hypertension; lisinopril 10 mg daily 4. Hyperlipidemia; Zetia 10 mg daily 5. Atrial fibrillation; patient is currently on Eliquis 5 mg twice daily 6. History of peripheral vascular occlusive disease; patient does report history of angiogram with intervention in the past; remains on statin therapy DVT prophylaxis; SCDs/Eliquis CODE STATUS; full code
--- NOTE | 2024-05-23 12:46 | EEG ---
DATE OF SERVICE: 05/23/2024 ELECTROENCEPHALOGRAM REPORT PREAMBLE: This is a 68-year-old female with recurrent right leg decreased, rule out seizure. Currently, the patient is taking Mysoline, Xanax, Eliquis, B12, Zoloft, Keppra, Zyprexa and Requip. EEG FINDINGS: This is a 21-channel digital EEG recorded with video component, utilizing 10/20 international system with referential and bipolar montages. Background consists of well developed, well regulated moderate voltage activity in 9 Hertz alpha. Background is posterior dominant and reactive to eye opening and closing. Photic driving response was not seen. Some drowsiness was seen with appearance of theta frequency rhythm. Deeper stages of sleep were not seen. No focal or generalized epileptiform activity was seen. IMPRESSION: This is a normal awake and drowsy EEG. No focal, lateralized, or epileptiform activity was seen. MMODL / IJN: [id number] / MTDD
--- NOTE | 2024-05-23 14:01 | P.GSCN ---
History of Present Illness Consult date: 05/23/24 Reason for Consult: Cool right lower extremity Requesting physician: Michael Weinberg History of present illness: This is a pleasant 68-year-old female with a history of peripheral arterial disease with history of angioplasty 1998, CVA/TIA, atrial fibrillation on Eliquis, deep vein thrombosis, hyperlipidemia, hypertension, coronary artery disease with history [place] 2021, COPD, and former smoker who presented to the emerg ency department 3 days ago with complaints of right lower extremity paralysis. Apparently patient had been hospitalized 3 days prior to that and discharged for similar complaints. She states that she will get a charley horse in her thigh and then it travels down her leg and then she has paralysis where she cannot walk or move her lower extremity below her knee. Neurology was consulted and has been working her up initially for CVA however findings on brain CT and MRI were negative. They are now evaluating further for possible Federico's paralysis. She does have a history of peripheral arterial disease which she states she had angioplasty in 1998 down both per extremities with Dr. Howard. Apparently patient had cool right lower extremity and vascular surgery was consulted. She now follows with Dr. Tovar and he has been up-to-date and underwent arterial Doppler study in November of this year. At that time ABIs were 0.83 on the right and 0.88 on the left. She states symptoms began the other day and yesterday around 5 PM she was able to start moving her leg again she got up she was walking around and then 7 PM came and she get the pain in her thigh like a charley horse and then following that had paralysis down her lower extremity. She currently still reports not being able to move her right lower extremity below her knee. She denies any weakness or paralysis in her right upper extremity. She denies any other focal deficits. Denies any pain down her left lower extremity. She does state now that she has been thinking about it over the last month or 2 with walking she has been experiencing more pain down her right lower extremity and in her calf. Arterial duplex during this hospitalization shows ABIs on the right 0.56 left 0.82. Review of Systems A 14 point review systems was completed all pertinent positives and negatives as stated in the HPI. Past Medical History Past Medical History: COPD, CVA/TIA, Deep Vein Thrombosis (DVT), GERD/Reflux, Hyperlipidemia, Hypertension, Myocardial Infarction ([place]), Pneumonia, Vascular Disorder Additional Past Medical History / Comment(s): Abdominal pain for last 6-7 months. Hx right lower extremity DVT 1996, peripheral vascular disease. Restless leg syndrome, iron deficiency, adrenal gland mass. Hx CVA Aug 2022 - no residual effects. Last Myocardial Infarction Date:: 10/2014 History of Any Multi-Drug Resistant Organisms: C-DIFF, ESBL, MRSA Year Discovered:: 2000 MDRO Source:: abdominal wound Past Surgical History: Appendectomy, Bariatric Surgery, Breast Surgery, Cholecystectomy, Heart Catheterization, Hysterectomy, Orthopedic Surgery Additional Past Surgical History / Comment(s): Gastric bypass and subsequent multiple surgeries d/t incision not healing properly and bowel was knicked, exploratory laparotomies, bilateral fem/pop bypass/stents, left wrist fracture with surgery/hardware, bilateral foot bunionectomies, left rotator cuff repair, left knee arthroscopy, left breast benign biopsy, EGD, colonoscopies/benign polypectomy, right collar bone surgery. Past Anesthesia/Blood Transfusion Reactions: No Reported Reaction Past Psychological History: Anxiety, Panic Disorder Additional Psychological History / Comment(s): Pt resides with her spouse. She states she has high anxiety. Pt uses no assistive device. She drives. Smoking Status: Former smoker Past Alcohol Use History: Occasional Additional Past Alcohol Use History / Comment(s): Started smoking in 1973 and quit in 2008, smoked 1 ppd. Past Drug Use History: None Reported - Past Family History Father Additional Family Medical History / Comment(s): STROKE AT AGE 50. Father of pnemonia at the age of 63 yrs. Mother Family Medical History: Cancer Additional Family Medical History / Comment(s): Skin cancer. Medications and Allergies Home Medications Medication Instructions Recorded Confirmed Type estradioL [Estrace] 0.5 mg PO DAILY 09/25/17 05/21/24 History ALPRAZolam [Xanax] 1 mg PO DAILY PRN 08/07/20 05/21/24 History rOPINIRole HCL [Requip] 2 mg PO HS 09/10/22 05/21/24 History Cyanocobalamin [Vitamin B-12 1,000 mcg SQ Q30D 10/12/23 05/21/24 History Injection] Dicyclomine [Bentyl] 10 mg PO TID PRN 10/12/23 05/21/24 History Ezetimibe [Zetia] 10 mg PO DAILY 10/12/23 05/21/24 History Sertraline [Zoloft] 150 mg PO DAILY 04/07/24 05/21/24 History lisinopriL [Zestril] 10 mg PO DAILY 04/07/24 05/21/24 History Famotidine [Pepcid] 20 mg PO BID 05/19/24 05/21/24 History OLANZapine [ZyPREXA] 2.5 mg PO HS 05/19/24 05/21/24 History Pantoprazole [Protonix] 40 mg PO DAILY 05/19/24 05/21/24 History Primidone [Mysoline] 50 mg PO HS 05/19/24 05/21/24 History Apixaban [Eliquis] 5 mg PO BID tab 05/20/24 05/21/24 Rx levETIRAcetam [Keppra] 1,000 mg PO Q12HR #60 tab 05/20/24 05/21/24 Rx Allergies Allergy/AdvReac Type Severity Reaction Status Date / Time No Known Allergies Allergy Verified 05/21/24 19:48 Surgical - Exam Vital Signs Temp Pulse Resp BP Pulse Ox 97.9 F 66 18 170/85 98 05/21/24 17:05 05/21/24 17:05 05/21/24 17:05 05/21/24 17:05 05/21/24 17:05 General appearance: The patient is alert, oriented, appears in no acute distress. HET: Head is normocephalic and atraumatic. Pupils are equal and reactive. Neck: Supple. Heart: Regular. Lungs: Equal expansion, normal respiratory effort. Abdomen: Soft, nontender, nondistended. Extremities: Normal skin color and turgor. Patient is unable to move the right lower extremity from the knee below. She is unable to wiggle her toes. Sensory is intact and is able to feel pressure. Bilateral DP and PT signals present. Neurological: Right lower extremity paralysis. Results - Labs 05/22/24 05:38 05/23/24 09:27 - Imaging Comments: Bilateral lower extremity arterial duplex reports right BEN 0.56, left 0.82. TBI right 0.38 left 0.48. Biphasic Doppler waveforms right, monophasic left. Impression states severe right and moderate left peripheral vascular disease by ankle-brachial indices. Brain CT reports age-related atrophic and chronic small vessel ischemic change without acute intracranial process seen at this time. Assessment and Plan Assessment: 1. Recurrent acute right sided weakness, lower greater than upper with intermittent paralysis 2. Right lower extremity pain 3. Peripheral arterial disease with history of bilateral lower extremity angioplasty 4. History of right cerebellar stroke 5. History of atrial fibrillation on Coumadin 6. COPD 7. Former smoker Plan: 1. Continue symptomatic and supportive care 2. Continue with recommendations from neurology 3. CT abdomen pelvis with runoff ordered 4. Continue anticoagulation 5. Recommend physical therapy 6. Further recommendations forthcoming Thank you for this consultation, we will continue to follow. The impression and plan of care has been dictated as directed. I performed a history and examination of this patient, discussed the same with the dictator. I agree with the dictator's note ,documented as a scribe. Any additional findings or plans will be noted.
--- NOTE | 2024-05-23 15:24 | CT ---
EXAMINATION TYPE: CT angio abd aorta w/Runoff DATE OF EXAM: 05/23/2024 COMPARISON: 10/12/2023 HISTORY: 68-year-old female Right lower extremity pain, sensorimotor changes. PAD, change in BEN TECHNIQUE: Contiguous axial scanning of the abdomen and pelvis performed without and with IV Contrast , patient injected with 100ml mL of Isovue 370. Postcontrast scan performed with bilateral lower extr emity runoff. Coronal/sagittal reconstructions performed. 3-D reconstructions generated on a [employer] independent workstation. CT DLP: 2690.1 mGycm Automated exposure control for dose reduction was used. FINDINGS: Abdomen and pelvis: Heart borderline in size without pericardial effusion. Some hazy atelectasis in the lower lungs witho ut pleural effusion. Tiny hiatal hernia suspected. Postsurgical changes related Azeb-en-Y gastric bypass. Noncontrast and arterial phase imaging of the liver, left adrenal gland, spleen, and mildly atrophic pancreas show no gross abnormality. 2 nodules within the right adrenal gland measuring 1.1 cm and 8 mm remains unchanged from 10/12/2023. Statistically representing benign adrenal adenomas. Post surgical change with a remnant gallbladder containing tiny calculi. Retroaortic left renal vein. Moderate atherosclerotic calcifications abdominal aorta. Prominent fluid-filled small bowel loops mid to lower abdomen and pelvis. No dilated small bowel, river e fluid, or free air. Mild to moderate stool burden. No pericolonic inflammatory change. Bladder partially distended. Uterus surgically absent. Neither ovary clearly seen. No abnormal fluid collection in the pelvis or pelvic lymphadenopathy. Bones: Mild degenerative change of both hips. Moderate degenerative disc disease L5-S1 with hypertrop hic facet arthropathy. Vasculature: Moderate atherosclerotic calcifications throughout the abdominal aorta and common iliac arteries. Mil d atherosclerotic narrowing at the proximal bilateral renal arteries. Right: Moderate focal stenosis proximal right common iliac artery. GRANT WRITER is patent. The PFA is patent. Moderate diffuse and irregular stenosis throughout the mid SFA. The popliteal artery as well as the trifurcation vessels are patent. However, these vessels become diminutive at the mid leg level. Peroneal artery seen to the distal thi rd leg Anterior and posterior tibial arteries are not clearly seen beyond the ankle. Left: Scattered mild atherosclerotic calcifications. External iliac artery, GRANT WRITER, and PFA are patent. Moderate focal stenosis proximal third SFA. The remainder of the SFA and popliteal artery and trifurc ation vessels are patent. Peroneal artery seen to just above the ankle. Two-vessel runoff via the anterior and posterior tibial arteries. IMPRESSION: 1. MODERATE ATHEROSCLEROTIC CHANGES THROUGHOUT THE ABDOMINAL AORTA WITHOUT ANEURYSM. RIGHT: 2 MODERATE FOCAL STENOSIS proximal right common iliac artery. 3. Long segment moderate stenosis mid SFA. 4. Trifurcation vessels becomes diminutive at the mid leg level. Peroneal artery not seen beyond the distal third leg. 5. Anterior and posterior tibial arteries not clearly seen beyond the ankle. Left: 6. Moderate focal stenosis proximal third SFA. 7. Peroneal artery seen to just above the ankle. Otherwise, two-vessel runoff via the anterior and po sterior tibial arteries. Abdomen pelvis: 8. 2 nodules in the right adrenal gland measuring up to 1.1 cm remain unchanged from 10/12/2023. Susp ect a couple benign adrenal adenomas.
[2024-05-24 02:08] LABS: Creatine Kinase 42 U/L (30-135)
[2024-05-24 02:38] LABS: African American GFR (CKD) 72 (>60 ml/min/1.73 sqM); Anion Gap 3 mmol/L; Blood Urea Nitrogen 22 mg/dL (7-17); Calcium 8.6 mg/dL (8.4-10.2); Carbon Dioxide 23 mmol/L (22-30); Chloride 113 mmol/L (98-107); Glucose 96 mg/dL (74-99); Magnesium 2.3 mg/dL (1.6-2.3); Non-African American GFR(CKD) 62 (>60 ml/min/1.73 sqM); Potassium 4.3 mmol/L (3.5-5.1); Sodium 139 mmol/L (137-145)
[2024-05-24 08:47] LABS: African American GFR (CKD) 72 (>60 ml/min/1.73 sqM); Anion Gap 6 mmol/L; Blood Urea Nitrogen 19 mg/dL (7-17); Calcium 8.8 mg/dL (8.4-10.2); Carbon Dioxide 20 mmol/L (22-30); Chloride 114 mmol/L (98-107); Glucose 147 mg/dL (74-99); Non-African American GFR(CKD) 62 (>60 ml/min/1.73 sqM); Potassium 4.7 mmol/L (3.5-5.1); Sodium 140 mmol/L (137-145)
[2024-05-24 09:00] LABS: T4, Free (Free Thyroxine) 0.88 ng/dL (0.80-1.80)
--- NOTE | 2024-05-24 09:33 | P.PN ---
Subjective 68-year-old female she was just discharged from the hospital yesterday. Patient was admitted 3 days ago for strokelike symptoms. She was seen and evaluated by neurology. Patient had MRI and EEG that did not show any acute issues. Patient states that the event today's identical to what she was here for 3 days ago. Requesting to be transferred to [facility] after she was told here that her symptoms be better managed that [facility]. Patient states that her symptoms began today at 3:30 PM Blood work completed in ED reveals a WBC of 4.5, hemoglobin of 12.9 and platelet count of 107, sodium 138, potassium 4.6, BUNs/creatinine of 19/0.98 EKG interpretation: Ventricular rate 55, bradycardia,. 177, cures 81, QTc 428. No [place] prolongation, no QTC prolongation, no ST or T-wave changes noted. Overall, this EKG is unremarkable -CT scan of the brain shows no acute processes --Patient was discussed with neurology and was recommended to be given Keppra 1 g IV x 1 and then continue with 1000 mg IV every 12 hours -- Patient is being admitted for further neurological evaluation 05/23/24 This is a pleasant 68 years old female who presents with recurrent right leg weakness versus Federico's paralysis. Already evaluated by neurologist and she was started on Keppra 1000 during last admission, this admission it was increased to 1500 mg. However also there was suspicion of peripheral vascular disease. Patient she is supposed to do workup as outpatient Vascular surgery consult was obtained and arterial ultrasound of the lower extremity showing severe disease in the right side and moderate disease on the left side. However on examination there is no induration pallor different in temperature or other significant abnormality Patient yesterday she said having moving her leg for 2 hours 5 to 7 PM and then become paralyzed again as she described it as did per patient. Currently she has limited movement in her right leg, she states from the right knee down. Currently she is on Eliquis 5 mg for her history of A-fib also she has history of PE and DVT. Also I informed the patient about neurologist recommendation to follow-up with Dr. Desai interventional radiologist for her brain developmental venous anomaly and she verbalized understanding and acceptance She denies chest pain or dyspnea, no change in urine or bowel habits. Patient looks pleasant and relaxed. She is hemodynamically stable. She has unremarkable CBC, BMP. 05/24/2024 Patient now is moving her right lower extremity freely and normally and briskly with no difficulty at all just like the left side. She still having on and off weakness in the right lower extremity. Neurologist already increased her Keppra to 1500 mg twice daily. And vascular surgery team were evaluating the patient, she had aorta runoff showing bilateral stenosis in various areas. I discussed the case with vascular surgery team they going to do procedure this coming 05/26. Patient looks satisfied with these things. However the character of her weakness goes from complete paralysis to normal power and of several times within few days goes towards psychiatric issue more than organic therefore we are going to ask for psych evaluation for possible conversion disorder versus somatic symptom disorder vs excessive anxiety Review of systems CONSTITUTIONAL: No fever, no malaise, no fatigue. HEENT: No recent visual problems or hearing problems. Denied any sore throat. CARDIOVASCULAR: No orthopnea, PND, no palpitations, no syncope. PULMONARY: No shortness of breath, no cough, no hemoptysis. GASTROINTESTINAL: No diarrhea, no nausea, no vomiting, no abdominal pain. Normoactive bowel sounds. NEUROLOGICAL: No headaches, no weakness, no numbness. Active Medications Generic Name Dose Route Start Last Admin Trade Name Freq PRN Reason Stop Dose Admin Alprazolam 1 mg 05/21/24 20:53 05/23/24 20:06 Alprazolam 1 Mg Tab PO 1 mg DAILY PRN Administration Anxiety Apixaban 5 mg 05/21/24 21:00 05/24/24 09:08 Apixaban 5 Mg Tab PO 5 mg BID VARUN Administration Protocol Cyanocobalamin 1,000 mcg 05/21/24 21:00 05/21/24 22:45 Cyanocobalamin 1,000 Mcg/Ml 1 Ml Vial SQ Not Given Q30D VARUN Dicyclomine HCl 10 mg 05/21/24 20:53 Dicyclomine 10 Mg Cap PO TID PRN GI Upset Ezetimibe 10 mg 05/22/24 09:00 05/24/24 09:09 Ezetimibe 10 Mg Tab PO 10 mg DAILY VARUN Administration Estradiol 0.5 mg 05/22/24 09:00 05/24/24 09:09 Estradiol 0.5 Mg Tab PO 0.5 mg DAILY VARUN Administration Famotidine 20 mg 05/22/24 09:00 05/24/24 09:08 Famotidine 20 Mg Tab PO 20 mg DAILY VARUN Administration Sodium Chloride 1,000 mls @ 20 mls/hr 05/21/24 20:45 05/23/24 00:26 Saline 0.9% IV Not Given .Q24H VARUN Levetiracetam 1,500 mg 05/22/24 21:00 05/24/24 09:08 Levetiracetam 750 Mg Tab PO 1,500 mg Q12HR VARUN Administration Lisinopril 10 mg 05/22/24 09:00 05/24/24 09:08 Lisinopril 10 Mg Tab PO 10 mg DAILY VARUN Administration Naloxone HCl 0.2 mg 05/21/24 20:44 Naloxone 0.4 Mg/Ml 1 Ml Vial IV Q2M PRN Opioid Reversal Olanzapine 2.5 mg 05/21/24 21:00 05/23/24 21:26 Olanzapine 2.5 Mg Tab PO 2.5 mg HS VARUN Administration Pantoprazole Sodium 40 mg 05/22/24 09:00 05/24/24 09:08 Pantoprazole 40 Mg Tablet PO 40 mg DAILY VARUN Administration Primidone 50 mg 05/21/24 21:00 05/23/24 20:06 Primidone 50 Mg Tab PO 50 mg HS VARUN Administration Ropinirole HCl 2 mg 05/21/24 21:00 05/23/24 20:06 Ropinirole Hcl 1 Mg Tab PO 2 mg HS VARUN Administration Sertraline HCl 150 mg 05/22/24 09:00 05/24/24 09:09 Sertraline 50 Mg Tab PO 150 mg DAILY VARUN Administration Objective - Vital Signs Vital signs: Vital Signs Temp 97.5 F L 05/24/24 04:00 Pulse 61 05/24/24 04:00 Resp 18 05/24/24 04:00 BP 118/70 05/24/24 04:00 Pulse Ox 96 05/24/24 04:00 FiO2 Intake & Output 05/23/24 05/24/24 05/24/24 18:59 06:59 18:59 Intake Total 1970 358 Output Total 200 200 Balance 1770 -200 358 Intake: Oral 1969 358 Output: Urine 200 200 Other: Voiding Method External Catheter External Catheter # Bowel Movements 1 - Exam GENERAL: The patient is alert and oriented x3, not in any acute distress. Well developed, well nourished. HEENT: Pupils are round and equally reacting to light. EOMI. No scleral icterus. No conjunctival pallor. Normocephalic, atraumatic. No pharyngeal erythema. No thyromegaly. CARDIOVASCULAR: S1 and S2 present. No murmurs, rubs, or gallops. PULMONARY: Chest is clear to auscultation, no wheezing , no crackles. ABDOMEN: Soft, nontender, nondistended, normoactive bowel sounds. No palpable organomegaly. MUSCULOSKELETAL: No joint swelling or deformity. EXTREMITIES: No cyanosis, clubbing, or pedal edema. -NEUROLOGICAL: Gross neurological examination did not reveal any focal deficits. No weakness in the right lower extremity and she flex her knee and hip very briskly and freely. No weakness in the right upper extremity. No weakness on the left side as well. Sensation intact SKIN: No rashes. no petechiae. - Labs CBC & Chem 7: 05/22/24 05:38 05/24/24 07:43 Labs: Abnormal Lab Results - Last 24 Hours (Table) 05/23/24 05/24/24 05/24/24 Range/Units 09:27 01:42 01:42 Chloride 111 H (98-107) mmol/L Carbon Dioxide 18 L (22-30) mmol/L BUN 18 H (7-17) mg/dL Glucose 235 H (74-99) mg/dL Folate 4.30 L (4.40-31.00) ng/mL TSH 5.950 H (0.465-4.680) mIU/L 05/24/24 05/24/24 Range/Units 01:42 07:43 Chloride 113 H 114 H (98-107) mmol/L Carbon Dioxide 20 L (22-30) mmol/L BUN 22 H 19 H (7-17) mg/dL Glucose 147 H (74-99) mg/dL Folate (4.40-31.00) ng/mL TSH (0.465-4.680) mIU/L Assessment and Plan Assessment: Right lower extremity weakness, 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 Continue same treatment. Continue with symptomatic treatment. Resume home medication. Monitor labs and vitals. DVT and GI prophylaxis. Further recommendations as per clinical course of the patient DVT prophylaxis: Eliquis GI Prophylaxis: Pepcid PT/OT: Pending Prognosis is guarded
--- NOTE | 2024-05-24 09:46 | P.PN ---
Subjective Progress Note Date: 05/23/24 Patient was initially seen by Dr. Walker Rahman. Please refer to his note for details. Patient is present with recurrent right-sided weakness, mostly the lower. Dr. 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 She had a recent MRI of the brain and EEG which were normal. Dr. Rahman increase Keppra to 1500 mg twice daily. Patient has a venous anomaly on the imaging on prior. Dr. Rahman has tried to speak to Dr. Ashford about it. Patient states that for last 5 months she has been having problem in the right leg. It knots up in the right calf, which she rates more than 10/10 on the pain scale, and immediately gets "", from knee down to the foot. She has no symptoms in the left leg or in the upper extremities basically. This problem has got worse since last Thursday. Patient had a spell while sitting watching TV on Thursday at 4 PM when she felt a knot in the right calf and then became numb and weak. It lasted till Thursday 5 PM. She was fine for 2 hours and the same symptoms happened again Thursday, yesterday at 7 PM until it cleared at 6 PM today. When it happens, she cannot walk on it, cannot put weight on it, cannot wiggle her toes and the weakness is just laying down not involving the hip. She feels like "". It happens only in the right leg. 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 Patient states she has a blockage in the right sided artery of the neck. Her CTA of head and neck performed on 05/19/2024 were normal. No blockages. Patient does take Eliquis. Patient was admitted with this problem on 05/18/2024 on a Thursday. She was discharged on 05/20/2024, and then readmitted on 05/21/[address] Rahman placed her on Keppra 500 mg twice daily on 05/18/2024 admission. With this admission, he increased the dose from 1000 mg twice daily up to 1500 mg twice daily. Vascular surgery also has seen the patient, perform CTA of lower extremities to evaluate for peripheral arterial disease. Objective - Vital Signs Vital signs: Vital Signs Temp 98.5 F 05/23/24 16:00 Pulse 72 05/23/24 16:00 Resp 18 05/23/24 16:00 BP 121/57 05/23/24 16:00 Pulse Ox 97 05/23/24 16:00 FiO2 Intake & Output 05/23/24 05/23/24 05/24/24 06:59 18:59 06:59 Intake Total 1970 Output Total 600 200 Balance -600 1770 Intake: Oral 1969 Output: Urine 600 200 Other: Voiding Method External Catheter External Catheter - Exam Patient's mental status, speech and language functions are normal. Her cranial nerves are normal. On muscle strength testing, patient has right pronator drift about 15 degree. - Labs CBC & Chem 7: 05/22/24 05:38 05/24/24 07:43 Labs: Abnormal Lab Results - Last 24 Hours (Table) 05/23/24 Range/Units 09:27 Chloride 111 H (98-107) mmol/L Carbon Dioxide 18 L (22-30) mmol/L BUN 18 H (7-17) mg/dL Glucose 235 H (74-99) mg/dL Assessment and Plan Assessment: This is a 68-year-old woman with history of right cerebellar stroke and small focus over the right occipital, hypertension, myocardial infarction, gastric bypass who present back because of right-sided weakness mostly right lower that started yesterday at 4pm. She was recently discharged from our facility for similar presentation of right sided weakness and Dr. 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 This time she is concerned about peripheral artery disease in right lower since has similar presentation. Recurrent Acute right sided weakness, involving lower extremity more than upper. I still continue probable seizure with Federico's paralysis. But patient is concerned about peripheral arterial disease in lower. But if peripheral arter ial disease in lower than why involving right upper. Had recent MRI Brain and EEG which are normal. Is on Keppra. Recurrent right leg jerking in last 6 weeks and she was unable to stop them with bilateral eye fluttering for 2.5 months is likely due to focal seizure and been hoping in past works with [employer] Bilateral frontal Venous anomalies reported on MRI Brain but not CTA. On my review, there is no evidence of venous anomalies. History of Right cerebellar stroke and small focus over the right occipital Past she had carotid stenosis left 70% and right is 50 to 69% on CTA but less on the carotid duplex and this time no significant carotid duplex is reported on the CTA History of Atrial fibrillation Patient on Coumadin and INR subtherapeutic History DVT. Per medical record patient has history of restless leg syndrome. Underlying history of hypertension Underlying history of myocardial infarction History vascular disease History of gastric bypass Plan: Dr. Rahman has increased Keppra from 1gm bid to 1500mg bid. Repeat EEG performed today was normal awake and drowsy. No focal, lateralized or epileptiform activity was seen. Continue Keppra at current dose for now. Seizure Precaution and seizure pads She is on Eliquis. She is on Zetia. Patient was notified that per [place] DMV, because of seizure, to avoid driving for 6 month until no further episodes from last episode, avoid heights, swim unassisted or use heavy machinery. Continue neurochecks Cardiac monitoring PT OT consulted Vascular surgery team is consulted for right lower concern for Peripheral arterial disease. CT angiography of the lower extremities revealed moderate atherosclerotic changes throughout the abdominal aorta without aneurysm. On the right side, moderate focal stenosis proximal right common iliac artery, long segment moder ate stenosis mid SFA, trifurcation vessels becomes diminutive at the mid leg level. Peroneal artery not seen beyond the distal third leg. On the left side, moderate focal stenosis proximal third SFA. Peroneal artery is seen to just above the ankle. Otherwise no two-vessel runoff via the anterior and posterior tibial arteries. Await vascular surgery input regarding PAD, if her symptoms in the right leg related to PAD. Will defer rest of the medical management the primary team and other specialists Upon discharge, recommend the patient to follow-up with neurologist as outpatient within 1-2 weeks.
--- NOTE | 2024-05-24 10:31 | P.PN ---
Subjective Progress Note Date: 05/24/24 Principal diagnosis: Peripheral arterial disease Patient is seen and examined today as a follow-up. She states last night about 20 times she got pain in her cath and then she had paralysis to the lower part of her right leg. States no other parts of her body was affected. Denies any weakness in the right upper extremity. She currently denies any pain in the right lower extremity. She had a CT angiogram with runoff done yesterday that shows chronic lower extremity peripheral arterial disease. She is being followed by neurology, they did an EEG yesterday that was normal. No focal, lateralized or elliptic form activity seen.. Objective - Vital Signs Vital signs: Vital Signs Temp 97.5 F L 05/24/24 04:00 Pulse 61 05/24/24 04:00 Resp 18 05/24/24 04:00 BP 118/70 05/24/24 04:00 Pulse Ox 96 05/24/24 04:00 FiO2 Intake & Output 05/23/24 05/24/24 05/24/24 18:59 06:59 18:59 Intake Total 1969 358 Output Total 200 200 Balance 1770 -200 358 Intake: Oral 1969 358 Output: Urine 200 200 Other: Voiding Method External Catheter External Catheter # Bowel Movements 1 - Exam General appearance: The patient is alert, oriented, appears in no acute distress. HET: Head is normocephalic and atraumatic. Pupils are equal and reactive. Neck: Supple. Heart: Regular. Lungs: Equal expansion, normal respiratory effort. Abdomen: Soft, nontender, nondistended. Extremities: Normal skin color and turgor. Warm to the touch. Sensorimotor intact. Patient has full range of motion of her right lower extremity at this time. Neurological: No focal deficits. Alert and oriented x 3. Good strength and t one bilateral lower extremities. - Labs CBC & Chem 7: 05/22/24 05:38 05/24/24 07:43 Labs: Abnormal Lab Results - Last 24 Hours (Table) 05/23/24 05/24/24 05/24/24 Range/Units 09:27 01:42 01:42 Chloride 111 H (98-107) mmol/L Carbon Dioxide 18 L (22-30) mmol/L BUN 18 H (7-17) mg/dL Glucose 235 H (74-99) mg/dL Folate 4.30 L (4.40-31.00) ng/mL TSH 5.950 H (0.465-4.680) mIU/L 05/24/24 05/24/24 Range/Units 01:42 07:43 Chloride 113 H 114 H (98-107) mmol/L Carbon Dioxide 20 L (22-30) mmol/L BUN 22 H 19 H (7-17) mg/dL Glucose 147 H (74-99) mg/dL Folate (4.40-31.00) ng/mL TSH (0.465-4.680) mIU/L Assessment and Plan Assessment: 1. Recurrent acute right sided weakness, lower greater than upper with intermittent paralysis 2. Right lower extremity pain 3. Peripheral arterial disease with history of bilateral lower extremity angioplasty 4. History of right cerebellar stroke 5. History of atrial fibrillation on Coumadin 6. COPD 7. Former smoker Plan: 1. Continue symptomatic and supportive care 2. Continue with recommendations from neurology 3. CT abdomen pelvis with runoff ordered and reviewed. Findings chronic with some possible worsening on the right side. 4. Hold anticoagulation 5. Recommend physical therapy 6. Will plan for right lower extremity angiogram with possible intervention , 05/26/2024 7. Patient no doubt does have chronic peripheral arterial disease with possible worsening on the right side possibly causing some component to the right lower extremity symptoms, but do not believe paralysis and symptoms completely related to peripheral arterial disease. Continue with workup and recommendations from neurology. Thank you for this consultation, we will continue to follow. The impression and plan of care has been dictated as directed. Dr. Tovar I performed a history and examination of this patient, discussed the same with the dictator. I agree with the dictator's note ,documented as a scribe. Any additional findings or plans will be noted.
--- NOTE | 2024-05-24 17:07 | P.CN ---
Psychiatric Consult - . Consult date: 05/24/24 Consult:: 05/24/24 17:06 CONSULTATION Reason for consult: Adjustment of Anxiety medications. Identifying Data: The patient is 68 years old, , white female, who lives in [place], [place] year old, with her . Reason for admission: Upper and lower extremity assist. History of present illness: The patient was brought to the emergency department with above mentioned complaints. She was here 3 days ago with similar com plaints. She was seen by Neurology and other work-up was done with no positive findings. During this evaluation, the patient reported she developed severe anxiety and panic attacks. She was admitted three times to the hospital for suspected [place]. On her third admission, she was told that she has panic attacks and her heart is fine. She been seeing psychiatrists since then for anxiety. She used to see Dr. Lopez before but he . She been going to Dr. Windy Valdes in [place] for her follow-up. As per patient, she saw her 2 days prior to this hospitalization. The patient reported inability to shut her mind off at night and not be able to sleep. Dr. Valdes prescribed Zyprexa 2.5 mg along with her Xanax and Zoloft with instructions to let her know, if she experiences any side effects. The patient stated that she has not experienced any side effects. Her psychiatrist is going to call her this coming Thursday to reevaluate her medications, as per patient. She sees this doctor every three months. She noted being under regular treatment for anxiety since late 50s. The patient has no h/o of in-pt psychiatric treatment. She no h/o suicidal or homicidal ideations. On leading questions admitted to Anxiety. Denied SI or HI The patient denied any symptoms of paranoia, or any other delusional thinking, A/V hallucinations. History of past psychiatric illness: No other than stated in HPI. No history of suicidal or homicidal ideations or behavior. Past medical history: CVA, [place], GERD, Hital Hernia. Substance abuse history: None Family history of psychiatric disorder: None. MSE: Alert and attentive Orientation X3. Pleasant and cooperative. Psychomotor activity: Speech: Normal tone, quality, and quantity Mood: Anxious. Affect: Consistent with mood. SI or HI: None Thought content: Normal Thought process: Normal Perceptual disturbance: Normal Cognition: Intact Judgement and Insight: Intact Diagnosis: SHAY, Panic Disorder Plan: Continue current medications. The patient will be having a telephonic evaluation of her Zyprexa, which was prescribed recently, as per patient. The patient prefers to go this route. She feels that Dr. Valdes knows her case well. The patient does not report any side effects. Did not observe any side effects from Zyprexa at this time. Please reconsult if MS changes.
--- NOTE | 2024-05-25 07:39 | P.PN ---
Subjective Progress Note Date: 05/24/24 05/24/2024: Patient was seen for a follow-up. Patient states that no further episode of right leg pain/weakness since last 24 hours. Patient states that in 1996 she had undergone balloon angioplasty of her lower limbs bilaterally. Appreciate vascular surgery input. Patient does have chronic peripheral arterial disease with possible worsening on the right side, possibly causing some component to the right lower extremity symptoms, but do not believe paralysis and symptoms completely related to peripheral arterial disease. 05/23/2024: Patient was initially seen by Dr. Walker Rahman. Please refer to his note for details. Patient is present with recurrent right-sided weakness, mostly the lower. Dr. 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 She had a recent MRI of the brain and EEG which were normal. Dr. Rahman increase Keppra to 1500 mg twice daily. Patient has a venous anomaly on the imaging on prior. Dr. Rahman has tried to speak to Dr. Ashford about it. Patient states that for last 5 months she has been having problem in the right leg. It knots up in the right calf, which she rates more than 10/10 on the pain scale, and immediately gets "", from knee down to the foot. She has no symptoms in the left leg or in the upper extremities basically. This problem has got worse since last Thursday. Patient had a spell while sitting watching TV on Thursday at 4 PM when she felt a knot in the right calf and then became numb and weak. It lasted till Thursday 5 PM. She was fine for 2 hours and the same symptoms happened again Thursday, yesterday at 7 PM until it cleared at 6 PM today. When it happens, she cannot walk on it, cannot put weight on it, cannot wiggle her toes and the weakness is just laying down not involving the hip. She feels like "". It happens only in the right leg. 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 Patient states she has a blockage in the right sided artery of the neck. Her CTA of head and neck performed on 05/19/2024 were normal. No blockages. Patient does take Eliquis. Patient was admitted with this problem on 05/18/2024 on a Thursday. She was discharged on 05/20/2024, and then readmitted on 05/21/[address] a [address] Rahman placed her on Keppra 500 mg twice daily on 05/18/2024 admission. With this admission, he increased the dose from 1000 mg twice daily up to 1500 mg twice daily. Vascular surgery also has seen the patient, perform CTA of lower extremities to evaluate for peripheral arterial disease. Objective - Vital Signs Vital signs: Vital Signs Temp 98.5 F 05/24/24 16:00 Pulse 61 05/24/24 16:00 Resp 17 05/24/24 16:00 BP 160/67 05/24/24 16:00 Pulse Ox 95 05/24/24 16:00 FiO2 Intake & Output 05/23/24 05/24/24 05/24/24 18:59 06:59 18:59 Intake Total 1970 598 Output Total 200 200 600 Balance 1770 -200 -2 Intake: Oral 1969 598 Output: Urine 200 200 600 Other: Voiding Method External Catheter External Catheter External Catheter # Bowel Movements 1 - Exam Patient's mental status, speech and language functions are normal. Her cranial nerves are normal. On muscle strength testing, patient has right pronator drift about 15 degree. Her muscle strength is (right/left) deltoid 5-/5, biceps 5/5, triceps 5/5, plate mill hand 4 4-/5. In the lower limbs hip flexion is 5-4+/5. Ankle dorsiflexion appears normal. Sensory is equal. No ataxia for [id number] testing. - Labs CBC & Chem 7: 05/22/24 05:38 05/24/24 07:43 Labs: Abnormal Lab Results - Last 24 Hours (Table) 05/24/24 05/24/24 05/24/24 Range/Units 01:42 01:42 01:42 Chloride 113 H (98-107) mmol/L Carbon Dioxide (22-30) mmol/L BUN 22 H (7-17) mg/dL Glucose (74-99) mg/dL Folate 4.30 L (4.40-31.00) ng/mL TSH 5.950 H (0.465-4.680) mIU/L 05/24/24 Range/Units 07:43 Chloride 114 H (98-107) mmol/L Carbon Dioxide 20 L (22-30) mmol/L BUN 19 H (7-17) mg/dL Glucose 147 H (74-99) mg/dL Folate (4.40-31.00) ng/mL TSH (0.465-4.680) mIU/L Assessment and Plan Assessment: This is a 68-year-old woman with history of right cerebellar stroke and small focus over the right occipital, hypertension, myocardial infarction, gastric bypass who present back because of right-sided weakness mostly right lower that started yesterday at 4pm. She was recently discharged from our facility for similar presentation of right sided weakness and Dr. 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 This time she is concerned about peripheral artery disease in right lower since has similar presentation. Recurrent Acute right sided weakness, involving lower extremity more than upper. Symptoms started with acute pain in the right calf followed by weakness of the right lower leg mainly knee downwards. Uncertain if related to focal seizure, o r related to peripheral arterial disease. Dr. 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 Patient now on Keppra. 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 Discussed with the radiologist Dr. 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 History of Right cerebellar stroke and small focus over the right occipital Past she had carotid stenosis left 70% and right is 50 to 69% on CTA but less on the carotid duplex and this time no significant carotid duplex is reported on the CTA History of Atrial fibrillation Patient on Coumadin and INR subtherapeutic History DVT. Per medical record patient has history of restless leg syndrome. Underlying history of hypertension Underlying history of myocardial infarction History vascular disease History of gastric bypass Folate deficiency Plan: Dr. Rahman has increased Keppra from 1gm bid to 1500mg bid. Patient is doing well, with no further episode in the last 24 hours. Repeat EEG performed today was normal awake and drowsy. No focal, lateralized or epileptiform activity was seen. Continue Keppra at current dose for now. Seizure Precaution and seizure pads She is on Eliquis. She is on Zetia. Patient was notified that per [place] DMV, because of seizure, to avoid driving for 6 month until no further episodes from last episode, avoid heights, swim unassis santhosh or use heavy machinery. Continue neurochecks Cardiac monitoring PT OT consulted B12 757, folate 4.3, TSH is 5.95, free T4 normal at 0.88. Creatine kinase 42. We will start folate replacement. For abnormal thyroid functions, we will defer to IM. Hemoglobin A1c 5.5. Lipid panel with cholesterol 235, LDL 118, HDL 92, triglycerides 122. Patient onset yet. Consider starting statins for PAD. Appreciate vascular surgery input. Patient no doubt does have chronic peripheral arterial disease with possible worsening on the right side, possibly causing some component to the right lower extremity symptoms, but do not believe paralysis and symptoms completely related to peripheral arterial disease. Patient undergoing right lower extremity angiogram with possible intervention on , 05/26/2024. CT angiography of the lower extremities revealed moderate atherosclerotic changes throughout the abdominal aorta without aneurysm. On the right side, moderate focal stenosis proximal right common iliac artery, long segment moderate stenosis mid SFA, trifurcation vessels becomes diminutive at the mid leg level. Peroneal artery not seen beyond the distal third leg. On the left side, moderate focal stenosis proximal third SFA. Peroneal artery is seen to just above the ankle. Otherwise no two-vessel runoff via the anterior and posterior tibial arteries. Will defer rest of the medical management the primary team and other specialists Upon discharge, recommend the patient to follow-up with neurologist as outpatient within 1-2 weeks.
[2024-05-25] MEDS: FOLIC ACID 1 MG TAB PO SCH (09:29)
--- NOTE | 2024-05-25 10:27 | P.PN ---
Subjective Progress Note Date: 05/25/24 Principal diagnosis: Peripheral arterial disease Patient is seen and examined today as a follow-up. She is up sitting in the bedside recliner. States she had a couple episodes last night where she felt a zinging down her leg which she felt like and would not move but it only lasted seconds. She states today so far she has had no weakness in the right lower extremity and no paralysis. She has been afebrile. Denies any pain in lower extremities. Objective - Vital Signs Vital signs: Vital Signs Temp 98 F 05/25/24 04:00 Pulse 84 05/25/24 04:00 Resp 18 05/25/24 04:00 BP 132/66 05/25/24 04:00 Pulse Ox 96 05/25/24 04:00 FiO2 Intake & Output 05/24/24 05/25/24 05/25/24 18:59 06:59 18:59 Intake Total 820 240 118 Output Total 600 250 300 Balance 220 -10 -182 Intake: Oral 820 240 118 Output: Urine 600 250 300 Other: Voiding Method External Catheter External Catheter # Voids 2 # Bowel Movements 1 - Exam General appearance: The patient is alert, oriented, appears in no acute distress. HET: Head is normocephalic and atraumatic. Neck: Supple. Heart: Regular. Lungs: Equal expansion, normal respiratory effort. Abdomen: Soft, nondistended. Extremities: Normal skin color and turgor. Warm to the touch. Sensorimotor intact. Patient has full range of motion of her right lower extremity at this time. Palpable bilateral DP pulses. Left great toe without toenail, with surrounding erythema. Neurological: No focal deficits. Alert and oriented x 3. Good strength and tone bilateral lower extremities. - Labs CBC & Chem 7: 05/22/24 05:38 05/24/24 07:43 Assessment and Plan Assessment: 1. Recurrent acute right sided weakness, lower greater than upper with intermittent paralysis 2. Right lower extremity pain 3. Peripheral arterial disease with history of bilateral lower extremity angioplasty 4. History of right cerebellar stroke 5. History of atrial fibrillation on Coumadin 6. COPD 7. Former smoker Plan: 1. Continue symptomatic and supportive care 2. Continue with recommendations from neurology 3. CT abdomen pelvis with runoff ordered and reviewed. Findings chronic with some possible worsening on the right side. 4. Hold anticoagulation 5. Recommend physical therapy 6. Will plan for right lower extremity angiogram with possible intervention Shelby alex, 05/26/2024 7. Bacitracin to left great toe 8. Patient no doubt does have chronic peripheral arterial disease with worsening on the right side possibly causing some component to the right lower extremity symptoms, but do not believe paralysis and symptoms completely related to peripheral arterial disease. Continue with workup and recommendations from neurology. Thank you for this consultation, we will continue to follow. The impression and plan of care has been dictated as directed. Dr. Tovar I performed a history and examination of this patient, discussed the same with the dictator. I agree with the dictator's note ,documented as a scribe. Any additional findings or plans will be noted.
--- NOTE | 2024-05-25 10:28 | P.PN ---
Subjective 68-year-old female she was just discharged from the hospital yesterday. Patient was admitted 3 days ago for strokelike symptoms. She was seen and evaluated by neurology. Patient had MRI and EEG that did not show any acute issues. Patient states that the event today's identical to what she was here for 3 days ago. Requesting to be transferred to [facility] after she was told here that her symptoms be better managed that [facility]. Patient states that her symptoms began today at 3:30 PM Blood work completed in ED reveals a WBC of 4.5, hemoglobin of 12.9 and platelet count of 107, sodium 138, potassium 4.6, BUNs/creatinine of 19/0.98 EKG interpretation: Ventricular rate 55, bradycardia,. 177, cures 81, QTc 428. No KS prolongation, no QTC prolongation, no ST or T-wave changes noted. Overall, this EKG is unremarkable -CT scan of the brain shows no acute processes --Patient was discussed with neurology and was recommended to be given Keppra 1 g IV x 1 and then continue with 1000 mg IV every 12 hours -- Patient is being admitted for further neurological evaluation 05/23/24 This is a pleasant 68 years old female who presents with recurrent right leg weakness versus Federico's paralysis. Already evaluated by neurologist and she was started on Keppra 1000 during last admission, this admission it was increased to 1500 mg. However also there was suspicion of peripheral vascular disease. Patient she is supposed to do workup as outpatient Vascular surgery consult was obtained and arterial ultrasound of the lower extremity showing severe disease in the right side and moderate disease on the left side. However on examination there is no induration pallor different in temperature or other significant abnormality Patient yesterday she said having moving her leg for 2 hours 5 to 7 PM and then become paralyzed again as she described it as did per patient. Currently she has limited movement in her right leg, she states from the right knee down. Currently she is on Eliquis 5 mg for her history of A-fib also she has history of PE and DVT. Also I informed the patient about neurologist recommendation to follow-up with Dr. Desai interventional radiologist for her brain developmental venous anomaly and she verbalized understanding and acceptance She denies chest pain or dyspnea, no change in urine or bowel habits. Patient looks pleasant and relaxed. She is hemodynamically stable. She has unremarkable CBC, BMP. 05/24/2024 Patient now is moving her right lower extremity freely and normally and briskly with no difficulty at all just like the left side. She still having on and off weakness in the right lower extremity. Neurologist already increased her Keppra to 1500 mg twice daily. And vascular surgery team were evaluating the patient, she had aorta runoff showing bilateral stenosis in various areas. I discussed the case with vascular surgery team they going to do procedure this coming 05/26. Patient looks satisfied with these things. However the character of her weakness goes from complete paralysis to normal power and of several times within few days goes towards psychiatric issue more than organic therefore we are going to ask for psych evaluation for possible conversion disorder versus somatic symptom disorder vs excessive anxiety 05/25/2029 Patient awake alert No new complaint She moves her right lower extremity very easily with no weakness. Right lower extremity with no discoloration, however however she has evidence of peripheral artery disease and patient going for the procedure with vascular surgery in the morning Objective - Vital Signs Vital signs: Vital Signs Temp 98 F 05/25/24 04:00 Pulse 59 L 05/25/24 08:00 Resp 16 05/25/24 08:00 BP 130/66 05/25/24 08:00 Pulse Ox 94 L 05/25/24 08:00 FiO2 Intake & Output 05/24/24 05/25/24 05/25/24 18:59 06:59 18:59 Intake Total 820 240 118 Output Total 600 250 300 Balance 220 -10 -182 Intake: Oral 820 240 118 Output: Urine 600 250 300 Other: Voiding Method External Catheter External Catheter # Voids 2 # Bowel Movements 1 - Exam GENERAL: The patient is alert and oriented x3, not in any acute distress. Well developed, well nourished. HEENT: Pupils are round and equally reacting to light. EOMI. No scleral icterus. No conjunctival pallor. Normocephalic, atraumatic. No pharyngeal erythema. No thyromegaly. CARDIOVASCULAR: S1 and S2 present. No murmurs, rubs, or gallops. PULMONARY: Chest is clear to auscultation, no wheezing , no crackles. ABDOMEN: Soft, nontender, nondistended, normoactive bowel sounds. No palpable organomegaly. MUSCULOSKELETAL: No joint swelling or deformity. EXTREMITIES: No cyanosis, clubbing, or pedal edema. -NEUROLOGICAL: Gross neurological examination did not reveal any focal deficits. No weakness in the right lower extremity and she flex her knee and hip very briskly and freely. No weakness in the right upper extremity. No weakness on the left side as well. Sensation intact SKIN: No rashes. no petechiae. - Labs CBC & Chem 7: 05/22/24 05:38 05/24/24 07:43 Assessment and Plan Assessment: Right lower extremity weakness, 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 Continue same treatment. Continue with symptomatic treatment. Resume home medication. Monitor labs and vitals. DVT and GI prophylaxis. Further recommendations as per clinical course of the patient DVT prophylaxis: Eliquis GI Prophylaxis: Pepcid PT/OT: Pending Prognosis is guarded
[2024-05-25] MEDS: BACITRACIN ZINC 500 UNIT/GM OINT 28.4 GM TUBE TOPICAL SCH (12:24)
--- NOTE | 2024-05-26 08:36 | P.PN ---
Subjective Progress Note Date: 05/25/24 05/25/2024: Patient was seen for follow-up. No further spells in the last 48 hours. Patient feels fine. Right leg has much improved. 05/24/2024: Patient was seen for a follow-up. Patient states that no further episode of right leg pain/weakness since last 24 hours. Patient states that in 1996 she had undergone balloon angioplasty of her lower limbs bilaterally. Appreciate vascular surgery input. Patient does have chronic peripheral arterial disease with possible worsening on the right side, possibly causing some component to the right lower extremity symptoms, but do not believe paralysis and symptoms completely related to peripheral arterial disease. 05/23/2024: Patient was initially seen by Dr. Walker Rahman. Please refer to his note for details. Patient is present with recurrent right-sided weakness, mostly the lower. Dr. 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 She had a recent MRI of the brain and EEG which were normal. Dr. Rahman increase Keppra to 1500 mg twice daily. Patient has a venous anomaly on the imaging on prior. Dr. Rahman has tried to speak to Dr. Ashford about it. Patient states that for last 5 months she has been having problem in the right leg. It knots up in the right calf, which she rates more than 10/10 on the pain scale, and immediately gets "", from knee down to the foot. She has no sy mptoms in the left leg or in the upper extremities basically. This problem has got worse since last Thursday. Patient had a spell while sitting watching TV on Thursday at 4 PM when she felt a knot in the right calf and then became numb and weak. It lasted till Thursday 5 PM. She was fine for 2 hours and the same symptoms happened again Thursday, yesterday at 7 PM until it cleared at 6 PM today. When it happens, she cannot walk on it, cannot put weight on it, cannot wiggle her toes and the weakness is just laying down not involving the hip. She feels like "". It happens only in the right leg. 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 Patient states she has a blockage in the right sided artery of the neck. Her CTA of head and neck performed on 05/19/2024 were normal. No blockages. Patient does take Eliquis. Patient was admitted with this problem on 05/18/2024 on a Thursday. She was discharged on 05/20/2024, and then readmitted on 05/21/[address] a [address] Rahman placed her on Keppra 500 mg twice daily on 05/18/2024 admission. With this admission, he increased the dose from 1000 mg twice daily up to 1500 mg twice daily. Vascular surgery also has seen the patient, perform CTA of lower extremities to evaluate for peripheral arterial disease. Objective - Vital Signs Vital signs: Vital Signs Temp 98.7 F 05/26/24 00:00 Pulse 74 05/26/24 04:00 Resp 18 05/26/24 04:00 BP 122/73 05/26/24 04:00 Pulse Ox 96 05/26/24 04:00 FiO2 Intake & Output 05/25/24 05/26/24 05/26/24 18:59 06:59 18:59 Intake Total 558 480 Output Total 300 300 Balance 258 180 Intake: Oral 558 480 Output: Urine 300 300 Other: Voiding Method External Catheter External Catheter # Voids 2 - Exam Patient's mental status, speech and language functions are normal. Her cranial nerves are normal. On muscle strength testing, patient has right pronator drift about 15 degree. Patient has history of right shoulder surgery the past. Her muscle strength is (right/left) deltoid 4/5, biceps 5/5, triceps 5/5, inclusion special educator 5/5. In the lower limbs hip flexion is 4/5, knee extension 5/5, ankle dorsiflexion 5/5. Sensory is equal. No ataxia for [id number] testing. - Labs CBC & Chem 7: 05/22/24 05:38 05/24/24 07:43 Assessment and Plan Assessment: This is a 68-year-old woman with history of right cerebellar stroke and small focus over the right occipital, hypertension, myocardial infarction, gastric bypass who present back because of right-sided weakness mostly right lower that started yesterday at 4pm. She was recently discharged from our facility for similar presentation of right sided weakness and Dr. 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 This time she is concerned about peripheral artery disease in right lower since has similar presentation. Recurrent Acute right sided weakness, involving lower extremity more than upper. Symptoms started with acute pain in the right calf followed by weakness of the right lower leg mainly knee downwards. Uncertain if related to focal seizure, or related to peripheral arterial disease. Dr. 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 Patient now on Keppra. 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 Discussed with the radiologist Dr. 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 History of Right cerebellar stroke and small focus over the right occipital Past she had carotid stenosis left 70% and right is 50 to 69% on CTA but less on the carotid duplex and this time no significant carotid duplex is reported on the CTA History of Atrial fibrillation Patient on Coumadin and INR subtherapeutic History DVT. Per medical record patient has history of restless leg syndrome. Underlying history of hypertension Underlying history of myocardial infarction History vascular disease History of gastric bypass Folate deficiency Plan: Dr. Rahman has increased Keppra from 1gm bid to 1500mg bid. Patient is doing well, with no further episode in the last 24 hours. Repeat EEG performed today was normal awake and drowsy. No focal, lateralized or epileptiform activity was seen. Continue Keppra at current dose for now. Seizure Precaution and seizure pads She is on Eliquis. She is on Zetia. Patient was notified that per [place] DMV, because of seizure, to avoid driving for 6 month until no further episodes from last episode, avoid heights, swim unassisted or use heavy machinery. Continue neurochecks Cardiac monitoring PT OT consulted B12 [id number], folate 4.3, TSH is 5.95, free T4 normal at 0.88. Creatine kinase 42. We will start folate replacement. For abnormal thyroid functions, we will defer to IM. Hemoglobin A1c 5.5. Lipid panel with cholesterol 235, LDL 118, HDL 92, triglycerides 122. Patient onset yet. Consider starting statins for PAD. Appreciate vascular surgery input. Patient no doubt does have chronic peripheral arterial disease with possible worsening on the right side, possibly causing some component to the right lower extremity symptoms, but do not believe paralysis and symptoms completely related to peripheral arterial disease. Patient undergoing right lower extremity angiogram with possible intervention on , 05/26/2024. CT angiography of the lower extremities revealed moderate atherosclerotic changes throughout the abdominal aorta without aneurysm. On the right side, moderate focal stenosis proximal right common iliac artery, long segment moderate stenosis mid SFA, trifurcation vessels becomes diminutive at the mid leg level. Peroneal artery not seen beyond the distal third leg. On the left side, moderate focal stenosis proximal third SFA. Peroneal artery is seen to just above the ankle. Otherwise no two-vessel runoff via the anterior and posterior tibial arteries. Will defer rest of the medical management the primary team and other specialists Upon discharge, recommend the patient to follow-up with neurologist as outpatient within 1-2 weeks.
[2024-05-26 10:19] LABS: African American GFR (CKD) 74 (>60 ml/min/1.73 sqM); Anion Gap 6 mmol/L; Blood Urea Nitrogen 22 mg/dL (7-17); Calcium 8.9 mg/dL (8.4-10.2); Carbon Dioxide 21 mmol/L (22-30); Chloride 109 mmol/L (98-107); Glucose 102 mg/dL (74-99); Non-African American GFR(CKD) 65 (>60 ml/min/1.73 sqM); Sodium 136 mmol/L (137-145)
[2024-05-26] MEDS ORDERED: ONDANSETRON 4 MG in SODIUM CHLORIDE 0.9% 50 ML IVPB ONE (10:31)
[2024-05-26 10:33] LABS: Potassium 4.9 mmol/L (3.5-5.1)
--- NOTE | 2024-05-26 10:34 | P.PN ---
Subjective 68-year-old female she was just discharged from the hospital yesterday. Patient was admitted 3 days ago for strokelike symptoms. She was seen and evaluated by neurology. Patient had MRI and EEG that did not show any acute issues. Patient states that the event today's identical to what she was here for 3 days ago. Requesting to be transferred to [facility] after she was told here that her symptoms be better managed that [facility]. Patient states that her symptoms began today at 3:30 PM Blood work completed in ED reveals a WBC of 4.5, hemoglobin of 12.9 and platelet count of 107, sodium 138, potassium 4.6, BUNs/creatinine of 19/0.98 EKG interpretation: Ventricular rate 55, bradycardia,. 177, cures 81, QTc 428. No AK prolongation, no QTC prolongation, no ST or T-wave changes noted. Overall, this EKG is unremarkable -CT scan of the brain shows no acute processes --Patient was discussed with neurology and was recommended to be given Keppra 1 g IV x 1 and then continue with 1000 mg IV every 12 hours -- Patient is being admitted for further neurological evaluation 05/23/24 This is a pleasant 68 years old female who presents with recurrent right leg weakness versus Federico's paralysis. Already evaluated by neurologist and she was started on Keppra 1000 during last admission, this admission it was increased to 1500 mg. However also there was suspicion of peripheral vascular disease. Patient she is supposed to do workup as outpatient Vascular surgery consult was obtained and arterial ultrasound of the lower extremity showing severe disease in the right side and moderate disease on the left side. However on examination there is no induration pallor different in temperature or other significant abnormality Patient yesterday she said having moving her leg for 2 hours 5 to 7 PM and then become paralyzed again as she described it as did per patient. Currently she has limited movement in her right leg, she states from the right knee down. Currently she is on Eliquis 5 mg for her history of A-fib also she has history of PE and DVT. Also I informed the patient about neurologist recommendation to follow-up with Dr. Desai interventional radiologist for her brain developmental venous anomaly and she verbalized understanding and acceptance She denies chest pain or dyspnea, no change in urine or bowel habits. Patient looks pleasant and relaxed. She is hemodynamically stable. She has unremarkable CBC, BMP. 05/24/2024 Patient now is moving her right lower extremity freely and normally and briskly with no difficulty at all just like the left side. She still having on and off weakness in the right lower extremity. Neurologist already increased her Keppra to 1500 mg twice daily. And vascular surgery team were evaluating the patient, she had aorta runoff showing bilateral stenosis in various areas. I discussed the case with vascular surgery team they going to do procedure this coming 05/26. Patient looks satisfied with these things. However the character of her weakness goes from complete paralysis to normal power and of several times within few days goes towards psychiatric issue more than organic therefore we are going to ask for psych evaluation for possible conversion disorder versus somatic symptom disorder vs excessive anxiety 05/25/2029 Patient awake alert No new complaint She moves her right lower extremity very easily with no weakness. Right lower extremity with no discoloration, however however she has evidence of peripheral artery disease and patient going for the procedure with vascular surgery in the morning 05/26/2024 Patient moving her right leg freely and briskly as good as the left leg. She is going for vascular surgery today for her peripheral vascular disease in her right leg She is complaining from some nausea and heartburn, Zofran and Protonix is provided Objective - Vital Signs Vital signs: Vital Signs Temp 97.5 F L 05/26/24 08:00 Pulse 59 L 05/26/24 08:00 Resp 16 05/26/24 08:00 BP 111/50 05/26/24 08:00 Pulse Ox 97 05/26/24 08:00 FiO2 Intake & Output 05/25/24 05/26/24 05/26/24 18:59 06:59 18:59 Intake Total 558 480 Output Total 300 300 Balance 258 180 Intake: Oral 558 480 Output: Urine 300 300 Other: Voiding Method External Catheter External Catheter # Voids 2 - Exam GENERAL: The patient is alert and oriented x3, not in any acute distress. Well developed, well nourished. HEENT: Pupils are round and equally reacting to light. EOMI. No scleral icterus. No conjunctival pallor. Normocephalic, atraumatic. No pharyngeal erythema. No thyromegaly. CARDIOVASCULAR: S1 and S2 present. No murmurs, rubs, or gallops. PULMONARY: Chest is clear to auscultation, no wheezing , no crackles. ABDOMEN: Soft, nontender, nondistended, normoactive bowel sounds. No palpable organomegaly. MUSCULOSKELETAL: No joint swelling or deformity. EXTREMITIES: No cyanosis, clubbing, or pedal edema. -NEUROLOGICAL: Gross neurological examination did not reveal any focal deficits. No weakness in the right lower extremity and she flex her knee and hip very briskly and freely. No weakness in the right upper extremity. No weakness on the left side as well. Sensation intact SKIN: No rashes. no petechiae. - Labs CBC & Chem 7: 05/22/24 05:38 05/24/24 07:43 Assessment and Plan Assessment: Right lower extremity weakness, 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 Continue same treatment. Continue with symptomatic treatment. Resume home medication. Monitor labs and vitals. DVT and GI prophylaxis. Further recommendations as per clinical course of the patient DVT prophylaxis: Eliquis GI Prophylaxis: Pepcid PT/OT: Pending Prognosis is guarded
[2024-05-26 11:12] LABS: HCT 37.8 % (34.0-46.0); HGB 12.4 gm/dL (11.4-16.0); MCH 30.5 pg (25.0-35.0); MCHC 32.7 g/dL (31.0-37.0); MCV 93.3 fL (80.0-100.0); Mean Platelet Volume 9.2; Platelet Count 114 k/uL (150-450); RBC 4.05 m/uL (3.80-5.40); RDW 13.1 % (11.5-15.5); WBC 3.8 k/uL (3.8-10.6)
[2024-05-26] MEDS ORDERED: fentaNYL (PF) 50 MCG/ML 2 ML AMP ONE (15:24)
[2024-05-26] MEDS ORDERED: HEPARIN SODIUM 1,000 UN/ML (10ML VL) ONE (15:24)
[2024-05-26] MEDS ORDERED: VERAPAMIL 2.5 MG/ML 2 ML AMP ONE (15:25)
[2024-05-26] MEDS ORDERED: LIDOCAINE 1% INJ 10MG/ML (20 ML MDV) ONE (15:25)
[2024-05-26] MEDS: MIDAZOLAM 2 MG/2 ML VIAL IVP ONE ×2 (15:34→15:39)
[2024-05-26] MEDS: fentaNYL (PF) 50 MCG/1 ML VIAL IVP ONE ×3 (15:34→15:41)
[2024-05-26] MEDS: LIDOCAINE 1% INJ 10MG/ML (20 ML MDV) SQ ONE (15:35)
[2024-05-26] MEDS: NITROGLYCERIN 1000MCG/10ML SYRINGE INTRAARTER ONE (15:41)
[2024-05-26] MEDS: VERAPAMIL 2.5 MG/ML 4 ML VIAL INTRAARTER ONE (15:41)
[2024-05-26] MEDS: HEPARIN SODIUM 1,000 UN/ML (10ML VL) MISCELLANE ONE (15:41)
[2024-05-26] MEDS: IOPAMIDOL-250 100ML BTL INTRAARTER ONE (16:13)
[2024-05-26] MEDS: SODIUM CHLORIDE 0.9% 250 ML IV ONE (16:14)
--- NOTE | 2024-05-26 16:20 | P.OP ---
Date of Procedure: 05/26/24 Description of Procedure: preoperative diagnosis: [place] 2 peripheral arterial disease right lower extremity, previous inability to move right lower extremity now improved Postoperative diagnosis: Same Procedure: Ultrasound-guided left radial artery access Placement of catheter in infrarenal abdominal aorta, selective second order, from radial approach Aortogram with bilateral lower extremity runoffs Selective third order angiogram via the right external iliac artery Moderate conscious sedation with personal monitoring certified RN administration and personal hemodynamic monitoring for 25 minutes Surgeon: Laureen Tovar D.O. EBL: Less than 5 cc IV fluids: See records Urine output: Not measured Drains: None Complications: None immediately apparent Condition: Stable to recovery Operative indication and findings: Patient is 68 a-year-old with peripheral vascular disease. She presented to the hospital with decreased function of her right side and subsequently on workup and evaluation was found to have abnormal ABIs prompting recommendations for an angiogram. Risks and benefits including but not limited to bleeding, infection, injury to the vessel, stroke, cardiopulmonary risks and ischemic changes to the extremities were discussed. They seemingly understood this willing to proceed. At the time of the procedure she did have palpable pedal pulses and we did discuss the likelihood of this not being in relation to anything happening however she does state has some degree of claudication when she ambulates through the entirety of the grocery store therefore the plan today was to go forward with a diagnostic angiogram Procedure in detail: Patient was taken to the special suite and placed in supine position. The left upper extremity was prepped and draped in usual sterile fashion. A preprocedural timeout was performed, all parties were in agreement. Using the ultrasound, the radial artery was identified. The skin overlying was anesthetized with 1% lidocaine plain. The artery was patent without significant calcific disease and a permanent image was stored. Under direct visualization, the artery was accessed and Seldinger technique was used to place a 5 slender sheath. Catheters and wires were then used to selectively place a catheter across the subclavian, into the aortic arch and then selectively in the descending thoracic aorta and down into the abdominal aorta. Aortogram was performed. Catheter was then advanced to the level of the iliac bifurcation. A bilateral lower extremity step-off was performed. After satisfactory images, catheters and wires were removed. The sheath was removed and a TR band was placed. Angiographic interpretation: The aorta and visualized portions of the renal, celiac and superior mesenteric artery appeared patent without significant disease. There does not appear to be significant plaquing through the vessels. The bilateral common, external iliac systems appear to be widely patent without significant disease. There are some smaller caliber of the right common iliac but brisk flow throughout the iliac system. The common femoral arteries appear patent without significant disease bilaterally. On the right there is mild disease of the upper mid superficial femoral artery but good flow through the area. The remainder of the superficial femoral artery, popliteal artery appear patent without significant disease and good contrast wash through. The anterior tibial, tibioperoneal trunk, TP and peroneal artery appear patent without significant disease. There is mildly sluggish flow through the anterior tibial artery but again no obvious areas of stenosis. On the left, the common, deep, superficial femoral artery appear patent without significant obvious disease. The popliteal artery appears patent without significant disease. There is three-vessel runoff below the knee with again sluggish flow through the anterior tibial artery.
[2024-05-26] MEDS: PANTOPRAZOLE 40 MG/10 ML VIAL IVP ONE (16:35)
[2024-05-26] MEDS: ONDANSETRON 4 MG/2 ML VIAL IVP ONE (16:36)
[2024-05-27 03:17] VITALS: RESP 18
[2024-05-27 07:29] VITALS: BMI 31.4
[2024-05-27 08:26] VITALS: TEMP 97.1
--- NOTE | 2024-05-27 09:45 | P.PN ---
Subjective Progress Note Date: 05/27/24 Principal diagnosis: Peripheral arterial disease Patient seen and examined today as a follow-up. Yesterday she underwent lower extremity angiogram for complaints of right lower extremity weakness, paralysis, and Milady to peripheral arterial disease of the right lower extremity. No significant peripheral arterial disease found. Patient states that she did have to episodes last night where her right leg again felt like it spasmed and could not move. This has resolved. She states she was up and walking the hallway today without any complications. She believes it is her new medication that she was started on last week by her psychiatrist. She denies any pain in bilateral lower extremities. Objective - Vital Signs Vital signs: Vital Signs Temp 98 F 05/27/24 03:16 Pulse 65 05/27/24 03:16 Resp 18 05/27/24 03:16 BP 142/63 05/27/24 03:16 Pulse Ox 96 05/27/24 03:16 FiO2 Intake & Output 05/26/24 05/27/24 05/27/24 18:59 06:59 18:59 Intake Total 390 Balance 390 Weight 85.8 kg 85.8 kg Intake: IV 150 Oral 240 Other: Voiding Method External Catheter Toilet External Catheter # Voids 1 - Exam General appearance: The patient is alert, oriented, appears in no acute distress. HET: Head is normocephalic and atraumatic. Neck: Supple. Heart: Regular. Lungs: Equal expansion, normal respiratory effort. Abdomen: Soft, nondistended. Extremities: Normal skin color and turgor. Warm to the touch. Sensorimotor intact. Patient has full range of motion of her right lower extremity at this time. Palpable bilateral DP pulses. Left great toe without toenail, with surrounding erythema. Neurological: No focal deficits. Alert and oriented x 3. Good strength and tone bilateral lower extremities. - Labs CBC & Chem 7: 05/26/24 09:56 05/26/24 09:56 Labs: Abnormal Lab Results - Last 24 Hours (Table) 05/26/24 05/26/24 Range/Units 09:56 09:56 Plt Count 114 L (150-450) k/uL Sodium 136 L (137-145) mmol/L Chloride 109 H (98-107) mmol/L Carbon Dioxide 21 L (22-30) mmol/L BUN 22 H (7-17) mg/dL Glucose 102 H (74-99) mg/dL Assessment and Plan Assessment: 1. Recurrent acute right sided weakness/paralysis 2. [place] 2 peripheral arterial disease with history of bilateral lower extremity angioplasty 3. History of right cerebellar stroke 4. History of atrial fibrillation on Coumadin 5. COPD 6. Former smoker Plan: 1. Continue symptomatic and supportive care 2. Continue with recommendations from neurology 3. CT abdomen pelvis with runoff ordered and reviewed. Findings chronic with some possible worsening on the right side. 4. Patient is status post abdominal aortogram without any significant findings of peripheral arterial disease 5. Bacitracin to left great toe 6. Consider discontinuing Zyprexa, will defer to medical team or psychiatry 7. Patient is cleared by vascular surgery for discharge. We will sign off at this time. 8. Rest of medical management per primary medical team The impression and plan of care has been dictated as directed. Dr. Tovar I performed a history and examination of this patient, discussed the same with the dictator. I agree with the dictator's note ,documented as a scribe. Any additional findings or plans will be noted.
[2024-05-27] MEDS: cilostazoL 100 MG TAB PO SCH (10:57)
[2024-05-27 11:01] VITALS: BP 126/71; PULSE 71
--- NOTE | 2024-05-27 12:02 | IR ---
EXAMINATION TYPE: IR angio abdominal w runoff Intraoperative/procedural fluoroscopic services were pr ovided. CLINICAL INDICATION:Female, 68 years old with history of AO RUNOFF, 3.0 MINS, 61.0MGY; , [facility] Total fluoroscopy time is 3.0 min. DAP: 7.12 Gycm2 Please see the operative/procedural note for further details.
--- NOTE | 2024-05-27 12:08 | P.PN ---
Subjective Progress Note Date: 05/26/24 05/26/2024: Patient was seen for a follow-up. Patient underwent diagnostic peripheral angiogram. On the right there is mild disease of the upper and mid superficial femoral artery but good flow through this area. The remainder of the superficial femoral artery, popliteal artery appears patent without significant disease and good contrast washed through. The anterior tibial, ti bioperoneal trunk, TP and peroneal artery appear patent without significant disease. There is mild sluggish flow through the anterior tibial artery but again no obvious areas of stenosis. Please refer to separate report for details. Patient has been free of symptoms for last 72 hours. 05/25/2024: Patient was seen for follow-up. No further spells in the last 48 hours. Patient feels fine. Right leg has much improved. 05/24/2024: Patient was seen for a follow-up. Patient states that no further episode of right leg pain/weakness since last 24 hours. Patient states that in 1996 she had undergone balloon angioplasty of her lower limbs bilaterally. Appreciate vascular surgery input. Patient does have chronic peripheral arterial disease with possible worsening on the right side, possibly causing some component to the right lower extremity symptoms, but do not believe paralysis and symptoms completely related to peripheral arterial disease. 05/23/2024: Patient was initially seen by Dr. Walker Rahman. Please refer to his note for details. Patient is present with recurrent right-sided weakness, mostly the lower. Dr. 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 She had a recent MRI of the brain and EEG which were normal. Dr. Rahman increase Keppra to 1500 mg twice daily. Patient has a venous anomaly on the imaging on prior. Dr. Rahman has tried to speak to Dr. Ashford about it. Patient states that for last 5 months she has been having problem in the right leg. It knots up in the right calf, which she rates more than 10/10 on the pain scale, and immediately gets "", from knee down to the foot. She has no symptoms in the left leg or in the upper extremities basically. This problem has got worse since last Thursday. Patient had a spell while sitting watching TV on Thursday at 4 PM when she felt a knot in the right calf and then became numb and weak. It lasted till Thursday 5 PM. She was fine for 2 hours and the same symptoms happened again Thursday, yesterday at 7 PM until it cleared at 6 PM today. When it happens, she cannot walk on it, cannot put weight on it, cannot wiggle her toes and the weakness is just laying down not involving the hip. She feels like "". It happens only in the right leg. 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 Patient states she has a blockage in the right sided artery of the neck. Her CTA of head and neck performed on 05/19/2024 were normal. No blockages. Patient does take Eliquis. Patient was admitted with this problem on 05/18/2024 on a Thursday. She was discharged on 05/20/2024, and then readmitted on 05/21/[address] a [address] Rahman placed her on Keppra 500 mg twice daily on 05/18/2024 admission. With this admission, he increased the dose from 1000 mg twice daily up to 1500 mg twice daily. Vascular surgery also has seen the patient, perform CTA of lower extremities to evaluate for peripheral arterial disease. Objective - Vital Signs Vital signs: Vital Signs Temp 97.5 F L 05/26/24 08:00 Pulse 69 05/26/24 12:00 Resp 16 05/26/24 12:00 BP 106/65 05/26/24 12:00 Pulse Ox 98 05/26/24 12:00 FiO2 Intake & Output 05/25/24 05/26/24 05/26/24 18:59 06:59 18:59 Intake Total 558 480 150 Output Total 300 300 Balance 258 180 150 Intake: IV 150 Oral 558 480 Output: Urine 300 300 Other: Voiding Method External Catheter External Catheter External Catheter # Voids 2 - Exam Patient's mental status, speech and language functions are normal. Her cranial nerves are normal. On muscle strength testing, patient has right pronator drift about 15 degree. Patient has history of right shoulder surgery the past. Her muscle strength is (right/left) deltoid 4/5, biceps 5/5, triceps 5/5, cardroom hand 5/5. In the lower limbs hip flexion is 4/5, knee extension 5/5, ankle dorsiflexion 5/5. Sensory is equal. No ataxia for [id number] testing. - Labs CBC & Chem 7: 05/26/24 09:56 05/26/24 09:56 Labs: Abnormal Lab Results - Last 24 Hours (Table) 05/26/24 05/26/24 Range/Units 09:56 09:56 Plt Count 114 L (150-450) k/uL Sodium 136 L (137-145) mmol/L Chloride 109 H (98-107) mmol/L Carbon Dioxide 21 L (22-30) mmol/L BUN 22 H (7-17) mg/dL Glucose 102 H (74-99) mg/dL Assessment and Plan Assessment: This is a 68-year-old woman with history of right cerebellar stroke and small focus over the right occipital, hypertension, myocardial infarction, gastric bypass who present back because of right-sided weakness mostly right lower that started yesterday at 4pm. She was recently discharged from our facility for similar presentation of right sided weakness and Dr. 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 This time she is concerned about peripheral artery disease in right lower since has similar presentation. Recurrent Acute right sided weakness, involving lower extremity more than upper. Symptoms started with acute pain in the right calf followed by weakness of the right lower leg mainly knee downwards. Uncertain if related to focal seizure, or related to peripheral arterial disease. Dr. 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 Patient now on Keppra. 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 Discussed with the radiologist Dr. 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 History of Right cerebellar stroke and small focus over the right occipital Past she had carotid stenosis left 70% and right is 50 to 69% on CTA but less on the carotid duplex and this time no significant carotid duplex is reported on the CTA History of Atrial fibrillation Patient on Coumadin and INR subtherapeutic History DVT. Per medical record patient has history of restless leg syndrome. Underlying history of hypertension Underlying history of myocardial infarction History vascular disease History of gastric bypass Folate deficiency Plan: Dr. Rahman has increased Keppra from 1gm bid to 1500mg bid. Patient is doing well, with no further episode in the last 24 hours. Repeat EEG performed today was normal awake and drowsy. No focal, lateralized or epileptiform activity was seen. Continue Keppra at current dose for now. Seizure Precaution and seizure pads She is on Eliquis. She is on Zetia. Patient was notified that per [place] DMV, because of seizure, to avoid driving for 6 month until no further episodes from last episode, avoid heights, swim unassisted or use heavy machinery. Continue neurochecks Cardiac monitoring PT OT consulted B12 [id number], folate 4.3, TSH is 5.95, free T4 normal at 0.88. Creatine kinase 42. We will start folate replacement. For abnormal thyroid functions, we will defer to IM. Hemoglobin A1c 5.5. Lipid panel with cholesterol 235, LDL 118, HDL 92, triglycerides 122. Patient onset yet. Consider starting statins for PAD. Appreciate vascular surgery input. No significant angiographic abnormality noted with abdominal aortogram and peripheral angiogram of the right leg. Symptoms not related to PAD. CT angiography of the lower extremities revealed moderate atherosclerotic changes throughout the abdominal aorta without aneurysm. On the right side, moderate focal stenosis proximal right common iliac artery, long segment moderate stenosis mid SFA, trifurcation vessels becomes diminutive at the mid leg level. Peroneal artery not seen beyond the distal third leg. On the left side, moderate focal stenosis proximal third SFA. Peroneal artery is seen to just above the ankle. Otherwise no two-vessel runoff via the anterior and posterior tibial arteries. Will defer rest of the medical management the primary team and other specialists Neurologically clear for discharge with Keppra 1500 mg twice daily. Follow-up w [facility] neurologist in 1 to 2 weeks.
--- NOTE | 2024-05-28 02:09 | P.DS ---
Providers Date of admission: 05/21/24 20:44 Attending physician: Geovanna Gandara Consults: 05/21/24 20:44 Consult Physician Routine Consulting Provider: Walker Rahman Consult Reason/Comments: seizure vs. 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 Rule out psychiatric causes like conversion disorder ( I Think it is high in the DDx), anxiety or somatic syndrome Peripheral artery disease, severe on the right side and moderate on the left side Possible seizure disorder on Keppra Bilateral frontal developmental venous anomaly per Neurologist on MRI Hypertension Hyperlipidemia Atrial fibrillation on Eliquis History of PE/DVT History of right cerebellar stroke Hospital course: 68-year-old female she was just discharged from the hospital yesterday. Patient was admitted for intermittent right leg weakness, her leg could be coming from complete paralysis 1 day to full-strength in another day and sometimes only for 1 or 2 hours before it comes back to full strength. She had extensive evaluat ion by neurologist and vascular surgery team, neurology service felt this could be seizure, last time they were started her on Keppra 500 mg this time and increase it to 1500 mg. However these episodes continue to happen. As such vascular surgery evaluated the patient Yesterday she underwent lower extremity angiogram for complaints of right lower extremity weakness, paralysis, and to evaluate for peripheral arterial disease of the right lower extremity. No significant peripheral arterial disease found. This morning patient got the idea that her intermittent right leg weakness is due to the olanzapine she was taking by her psychiatrist last time who to watch for side effects and let him/her know. She read several side effects some of them goes with her symptoms so she called her psychiatrist who advised her to stop it and she is going to follow-up with him on this coming Thursday. Other than that patient was pleasant and relaxed and looks comfortable. Her leg weakness was resolved completely upon discharge. Patient could walk. No other weakness or numbness. No headache or dizziness. No chest pain or dyspnea. Patient agreed to go home today happily. Patient was cleared for discharge by both neurology and vascular surgery team Patient will be discharged on pletal prescribed by vascular surgery team Problems and management plan were discussed with the patient and he verbalized understanding and acceptance Patient was found stable and can be discharged home in guarded prognosis however he needs follow-up as an outpatient. Patient was instructed to follow up with PCP Dr. Mahoney within one week and patient agrees Patient was instructed to follow-up with vascular surgeon Dr. Tovar in 2 weeks Patient was instructed to follow-up with a neurologist Dr. Siobhan burch in 1 to 2 week s and she agree Physical exam Gen: patient is a AAOx3, no distress CVS: S1-S2, RRR, no murmur Lungs: B/L CTA, no wheezing Abdomen: soft, no distention, no tenderness, positive bowel sounds Extremity: no leg edema or induration Time spent more than 35 minutes Patient Condition at Discharge: Fair Plan - Discharge Summary New Discharge Prescriptions: New cilostazoL [Pletal] 100 mg PO BID 30 Days #60 tab Folic Acid 1 mg PO DAILY 30 Days #30 tab levETIRAcetam [Keppra] 1,500 mg PO Q12HR #120 tab Continue estradioL [Estrace] 0.5 mg PO DAILY ALPRAZolam [Xanax] 1 mg PO DAILY PRN PRN Reason: Anxiety Ezetimibe [Zetia] 10 mg PO DAILY lisinopriL [Zestril] 10 mg PO DAILY Primidone [Mysoline] 50 mg PO HS rOPINIRole HCL [Requip] 2 mg PO HS Dicyclomine [Bentyl] 10 mg PO TID PRN PRN Reason: Gi Upset Cyanocobalamin [Vitamin B-12 Injection] 1,000 mcg SQ Q30D Sertraline [Zoloft] 150 mg PO DAILY Pantoprazole [Protonix] 40 mg PO DAILY Famotidine [Pepcid] 20 mg PO BID Apixaban [Eliquis] 5 mg PO BID tab Discontinued levETIRAcetam [Keppra] 1,000 mg PO Q12HR #60 tab No Action OLANZapine [ZyPREXA] 2.5 mg PO HS Discharge Medication List estradioL [Estrace] 0.5 mg PO DAILY 09/25/17 [History] ALPRAZolam [Xanax] 1 mg PO DAILY PRN 08/07/20 [History] rOPINIRole HCL [Requip] 2 mg PO HS 09/10/22 [History] Cyanocobalamin [Vitamin B-12 Injection] 1,000 mcg SQ Q30D 10/12/23 [History] Dicyclomine [Bentyl] 10 mg PO TID PRN 10/12/23 [History] Ezetimibe [Zetia] 10 mg PO DAILY 10/12/23 [History] Sertraline [Zoloft] 150 mg PO DAILY 04/07/24 [History] lisinopriL [Zestril] 10 mg PO DAILY 04/07/24 [History] Famotidine [Pepcid] 20 mg PO BID 05/19/24 [History] OLANZapine [ZyPREXA] 2.5 mg PO HS 05/19/24 [History] Pantoprazole [Protonix] 40 mg PO DAILY 05/19/24 [History] Primidone [Mysoline] 50 mg PO HS 05/19/24 [History] Apixaban [Eliquis] 5 mg PO BID tab 05/20/24 [Rx] Folic Acid 1 mg PO DAILY 30 Days #30 tab 05/27/24 [Rx] cilostazoL [Pletal] 100 mg PO BID 30 Days #60 tab 05/27/24 [Rx] levETIRAcetam [Keppra] 1,500 mg PO Q12HR #120 tab 05/27/24 [Rx] Follow up Appointment(s)/Referral(s): Laureen Tovar DO [STAFF PHYSICIAN] - 2 Weeks (Office closed-pt to call and make an appointment) Kwame Mahoney DO [Primary Care Provider] - 06/01/24 4:00 pm (Appointment with Brielle Dc MD [Medical Doctor] - 1 Week (Office is closed-pt to call and make an appointment) Activity/Diet/Wound Care/Special Instructions: Heart healthy diet Activity is restricted till you see your doctor We recommend to call your psychiatrist this coming Thursday as you informed the medical team Discharge Disposition: HOME SELF-CARE
== END 2024-05-27 13:16 | disposition home or self-care (01) | DRG 299 ==
LOC: EC 17:02 → 3SCARD 20:44
PROVIDERS: ADMIT Hospitalist; ATTEND Hospitalist
PROC: 4A10X4Z Monitoring of Central Nervous Electrical Activity, External Approach (ICD-10-PCS; 2024-05-23)
PROC: B41D1ZZ Fluoroscopy of Aorta and Bilateral Lower Extremity Arteries using Low Osmolar Contrast (ICD-10-PCS; principal; 2024-05-26 15:00)
PROC: B41C1ZZ Fluoroscopy of Pelvic Arteries using Low Osmolar Contrast (ICD-10-PCS; 2024-05-26 15:00)
DX: I73.9 Peripheral vascular disease, unspecified (principal); Q28.3 Other malformations of cerebral vessels; G81.91 Hemiplegia, unspecified affecting right dominant side; R53.1 Weakness; I10 Essential (primary) hypertension; E78.5 Hyperlipidemia, unspecified; Z79.01 Long term (current) use of anticoagulants; G83.84 Todd's paralysis (postepileptic); F45.8 Other somatoform disorders; I48.91 Unspecified atrial fibrillation; Z86.711 Personal history of pulmonary embolism; Z86.718 Personal history of other venous thrombosis and embolism; R00.1 Bradycardia, unspecified; Z86.73 Personal history of transient ischemic attack (TIA), and cerebral infarction without residual deficits; F41.0 Panic disorder [episodic paroxysmal anxiety]; F44.9 Dissociative and conversion disorder, unspecified; G25.81 Restless legs syndrome; G35 Multiple sclerosis; I25.10 Atherosclerotic heart disease of native coronary artery without angina pectoris; I25.2 Old myocardial infarction; Z79.899 Other long term (current) drug therapy; Z90.710 Acquired absence of both cervix and uterus; Z98.84 Bariatric surgery status; Z98.62 Peripheral vascular angioplasty status; Z90.49 Acquired absence of other specified parts of digestive tract; Z87.19 Personal history of other diseases of the digestive system
CPT/HCPCS: 36200; 36415; 70450; 75625; 75635; 75716; 76937; 80048; 82550; 82607; 82746; 83735; 84439; 84443; 85025; 85027; 86850; 86900; 86901; 93005; 93923; 95816; 96365; 99285

== ENCOUNTER → 2024-09-15 | Outpatient (CLI) | payer MEDICARE ==
--- NOTE | 2024-09-16 10:12 | MM ---
Reason for Exam: Screening (asymptomatic). Last screening mammogram was performed 12 month(s) ago. Patient History: Menarche at age 12. Patient has no children. Left ovary removed at age 35. Right ovary removed at age 35. Hysterectomy at age 35. Postmenopausal. Currently using Estrogen, for 15 years, 2 months. Patient used Hormonal Contraceptives for 8 years. Risk Values: Karolina 5 year model risk: 1.9%. NCI Lifetime model risk: 5.6%. Prior Study Comparison: 06/13/2021 Bilateral Screening Mammogram, [facility]. 07/25/2022 Bilateral MG 3D screening mammo w/cad, [facility]. 09/14/2023 Bilateral MG 3D screening mammo w/cad, [facility]. Tissue Density: There are scattered areas of fibroglandular density. Findings: Analyzed By CAD. Right breast: There is no suspicious group of microcalcifications or new suspicious mass. Left breast: There is no suspicious group of microcalcifications or new suspicious mass. Overall Assessment: Negative, BI-RAD 1 Management: Screening Mammogram of both breasts in [address] [facility] will attempt to contact patient to return for supplemental views and ultrasound if indicated. Patient should continue monthly self-breast exams. A clinical breast exam by your physician is recommended on an annual basis. This exam should not preclude additional follow-up of suspicious palpable abnormalities. Note on Karolina scores and lifetime risk: 1. A Karolina score greater than 3% is considered moderate risk. If this is the case, consider specialist referral to assess eligibility for a risk reducing agent. 2. If overall lifetime risk for the development of breast cancer is 20% or higher, the patient may qualify for future screening with alternating mammogram and breast MRI. [facility], , 09/16/2024 10:09 AM. Electronically signed and approved by: Reji Prasad DO
== END | disposition home or self-care (01) ==
LOC: RADMAMWWP 08:55
PROVIDERS: ATTEND Family Medicine
CPT/HCPCS: 77063; 77067

== ENCOUNTER → 2024-10-21 | Outpatient (CLI) | payer MEDICARE ==
[2024-10-21 11:50] LABS: African American GFR (CKD) 65 (>60 ml/min/1.73 sqM); Blood Urea Nitrogen 12 mg/dL (7-17); Non-African American GFR(CKD) 57 (>60 ml/min/1.73 sqM)
--- NOTE | 2024-10-21 13:11 | CT ---
EXAMINATION TYPE: CT angio neck CT DLP: 240.8 mGycm, Automated exposure control for dose reduction was used. DATE OF EXAM: 10/21/2024 12:28 PM COMPARISON: CTA head and neck 09/22/2022 CLINICAL INDICATION:Female, 69 years old with history of I65.23 OCCLUSION AND STENOSIS OF BILATERAL C AROTID; PHH, carotid stenosis TECHNIQUE: Axially acquired helical CT angiogram of the neck was obtained with contrast utilizing 75 cc of Isovue-370 administered intravenously. Axial images are supplemented with MIP reconstructions w hich were post-processed at an independent workstation. NASCET criteria used. FINDINGS: CTA NECK: Right Carotid System: The common carotid artery and external carotid artery are patent. Mild plaque seen within the right c ommon carotid artery. Mild to moderate calcified plaque noted at the carotid bulb and proximal ICA. T here is approximately 50% stenosis at the origin of the right internal carotid artery which is simila r to prior exam. The remaining portions of the internal carotid artery demonstrate normal size withou t significant narrowing. Left Carotid System: The common carotid artery and external carotid artery are patent. Mild plaque seen within the left co mmon carotid artery. Moderate amount of calcified plaque noted at the carotid bulb and proximal ICA. Approximately similar 70% stenosis at the origin of the left internal carotid artery. The carotid bif urcation demonstrates no evidence of hemodynamically significant stenosis. The remaining portions of the internal carotid artery demonstrate normal size without significant narrowing. Vertebral arteries are patent without evidence hemodynamically significant stenosis. Diminutive appea sebastian of the V4 segments of the bilateral vertebral arteries redemonstrated. There is a three-vessel aortic arch. The origins of the great vessels are patent. No evidence of hemo dynamically significant stenosis. Centrilobular emphysematous changes. IMPRESSION: Overall stable examination with approximately 50% stenosis at the origin the right internal carotid a rtery and 70% stenosis of the origin the left internal carotid artery secondary to calcified plaque. [facility], , 10/21/2024 1:08 PM
== END | disposition home or self-care (01) ==
LOC: RADCTMAIN 11:09
PROVIDERS: ATTEND Surgery
DX: I65.23 Occlusion and stenosis of bilateral carotid arteries (principal)
CPT/HCPCS: 82565; 84520; 70498; 36415; Q9967

== ENCOUNTER 2024-11-24 05:34 | Inpatient (IN) | payer MEDICARE ==
[2024-11-24] MEDS ORDERED: ONDANSETRON 4 MG/2 ML VIAL IVP PRN (05:50)
[2024-11-24] MEDS: IV FLUID CONTINUATION 1,000 ML IV ONE (05:50)
[2024-11-24] MEDS ORDERED: LIDOCAINE 1% (10MG/ML) FOR IV START INTRADERMA PRN (05:50)
[2024-11-24] MEDS ORDERED: HYDROmorphone 0.5 MG/0.5 ML SYRINGE IVP PRN (05:50)
[2024-11-24] MEDS: MIDAZOLAM 2 MG/2 ML VIAL IV ONE (06:48)
[2024-11-24] MEDS: fentaNYL (PF) 50 MCG/ML 2 ML AMP IVP STA (06:48)
[2024-11-24 06:59] LABS: Basophils % (A) 0 %; Eosinophils % (A) 1 %; HCT 34.2 % (34.0-46.0); HGB 11.6 gm/dL (11.4-16.0); Lymphocytes # (A) 0.6 k/uL (1.0-4.8); Lymphocytes % (A) 24 %; MCH 30.2 pg (25.0-35.0); MCV 88.9 fL (80.0-100.0); Mean Platelet Volume 8.2; Monocytes # (A) 0.1 k/uL (0-1.0); Monocytes % (A) 5 %; Neutrophils # (A) 1.8 k/uL (1.3-7.7); Neutrophils % (A) 69 %; Platelet Count 102 k/uL (150-450); RBC 3.85 m/uL (3.80-5.40); RDW 12.8 % (11.5-15.5); WBC 2.6 k/uL (3.8-10.6)
[2024-11-24] MEDS: LACTATED RINGERS 1,000 ML IV SCH (07:00)
[2024-11-24] MEDS: ONDANSETRON 4 MG/2 ML VIAL IVP ONE (07:00)
[2024-11-24] MEDS: DEXAMETHASONE SOD PHOSPHATE 4 MG/ML 1 ML VIAL IV ONE (07:00)
[2024-11-24] MEDS ORDERED: WATER FOR INJECTION, STERILE 10 ML VIAL IV ONE (07:25)
[2024-11-24] MEDS ORDERED: ePHEDrine 50 MG/ML 1 ML VIAL ONE (07:25)
[2024-11-24] MEDS ORDERED: GLYCOPYRROLATE 0.2 MG/ML 2 ML VIAL ONE (07:25)
[2024-11-24] MEDS ORDERED: ROCURONIUM 10 MG/ML (5 ML VIAL) IV ONE (07:25)
[2024-11-24] MEDS ORDERED: SUCCINYLCHOLINE CHLORIDE 200 MG/10 ML VIAL IV ONE (07:25)
[2024-11-24] MEDS ORDERED: NITROGLYCERIN-D5W PMX 50 MG/250 ML BOTTLE IV ONE (07:25)
[2024-11-24] MEDS ORDERED: HEPARIN SODIUM,PORCINE 10,000 UNIT/ML 1 ML VIAL ONE (07:25)
[2024-11-24] MEDS ORDERED: PROPOFOL 10 MG/ML 20 ML VIAL IV ONE (07:25)
[2024-11-24] MEDS ORDERED: PHENYLEPHRINE 10 MG/ML VIAL ONE (07:25)
[2024-11-24] MEDS ORDERED: NEOSTIGMINE 1 MG/ML 10 ML VIAL ONE (07:25)
[2024-11-24] MEDS ORDERED: fentaNYL (PF) 50 MCG/ML 2 ML AMP ONE (07:25)
[2024-11-24] MEDS ORDERED: LIDOCAINE 1% INJ 10MG/ML (20 ML MDV) ONE (07:25)
[2024-11-24] MEDS: HEPARIN SODIUM (1,000 UNIT/ML) 2,000 UNIT in SODIUM CHLORIDE 0.9% 1,000 ML IRRIGATION ONE (08:11)
[2024-11-24] MEDS: ceFAZolin 2 GM in SODIUM CHLORIDE 0.9% 500 ML 500 ML IRRIGATION ONE (08:12)
[2024-11-24] MEDS: THROMBIN (BOVINE) 5,000 UNIT VIAL TOPICAL ONE (08:17)
[2024-11-24] MEDS: LIDOCAINE 1% INJ 10MG/ML (20 ML MDV) SQ ONE (08:20)
[2024-11-24] MEDS: LACTATED RINGERS 1,000 ML IV ONE (09:32)
--- NOTE | 2024-11-24 10:16 | P.OP ---
Date of Procedure: 11/24/24 Description of Procedure: Preoperative Diagnosis: Left internal carotid artery stenosis Postoperative Diagnosis: Same Procedure: Left carotid endarterectomy with patch angioplasty Anesthesia: GET Surgeon: Laureen Tovar DO Estimated Blood Loss (ml): 75 cc see records IV Fluids: See records Urine Output: See records Specimen: Carotid plaque Condition: stable Disposition: PACU Findings and indications: Patient is a 69-year-old female with high-grade left internal carotid artery stenosis and stenosis throughout the common carotid artery greater than 70% on multiple sources of imaging. Risk and benefits were discussed of going forward with intervention. She seemed understood and was willing to proceed. Procedure in detail: After written informed consent was obtained the patient risks benefits and competitions were described the patient is brought to the operative suite and laid in a supine position. The area of the neck was prepped and draped in usual sterile fashion after appropriate anesthetic was performed per the anesthesiologist. A timeout was performed in normal fashion antibiotics were administered prior to incision. An oblique incision was then created just anterior to the sternocleidomastoid musculature with a 10 blade scalpel and dissection was carried down to the carotid sheath. The carotid sheath was then entered after facial vein was located and ligated in normal fashion. The common carotid, internal carotid, external carotid and superior thyroid arteries were located and dissected free in a meticulous fashion circumferentially and controlled with vessel loops. Attention was then placed to locating the vagus nerve as well as hypoglossal nerve which were both spared the bridging vein more cephalad was also ligated to allow for appropriate control of the internal carotid artery. Once controlled, patient was administered heparin and followed with ACTs for appropriate heparinization. Once ACT was appropriate, the proximal and distal aspects of the dissection were then controlled with vascular clamps. Arteriotomy was then created with 11 blade scalpel and extended with Calero Morgan scissors. Previously placed cerebral oximetry was monitored and found to be stable therefore no shunt was utilized. An endarterectomy was then performed with a [place] elevator. The plaque was transected proximally and then feathered at the distal aspect of the internal carotid artery and removed. There was significant plaquing through the common carotid artery which was removed. The area was copiously irrigated with heparinized saline and all free debris was removed. A 0.8 x 8 cm bovine pericardial patch was then chosen and patch angioplasty was performed with 6-0 Prolene suture in a running fashion. Prior to last sutures being placed the inflow was released flushing any free debris out of the patch. This was reclamped and the internal carotid artery was released revealing good brisk flow and was once again reclamped. The external carotid and superior thyroid artery were then released followed by the common carotid artery to allow any free debris to be flushed into the external system. Final sutures were placed and secured. Internal carotid artery control was then released. Good pulsatile flow was noted through the patch and a Doppler was utilized demonstrating good brisk flow into the internal, external carotid arteries without any signs of obstruction. Hemostasis was then assured with interrupted sutures of 6-0 Prolene as well as thrombin and Gelfoam. A 10-[place] ESTELLA drain was then placed in normal fashion and secured with 3-0 nylon suture. The incision was then closed in a multilayer fashion after hemostasis was assured. The skin was then cleansed and dressings were placed. Patient tolerated the procedure well and was following commands and moving all extremities. Patient was then sent to PACU for recovery.
[2024-11-24] MEDS ORDERED: BENZOCAINE/MENTHOL LOZENG 1 EACH LOZENGE MUCOUS MEM PRN (10:17)
[2024-11-24] MEDS ORDERED: TEMAZEPAM 15 MG CAP PO PRN (12:29)
[2024-11-24 13:07] LABS: Glucose,Whole Blood 160 mg/dL (70-110)
[2024-11-24] MEDS ORDERED: LORazepam 0.5 MG TAB PO PRN (14:04)
[2024-11-24] MEDS: ONDANSETRON 4 MG/2 ML VIAL IVP PRN (18:36)
[2024-11-24] MEDS: SODIUM CHLORIDE 0.9% 500 ML 500 ML IV ONE (18:40)
[2024-11-24] MEDS: traZODone HCL 50 MG TAB PO SCH (20:01)
[2024-11-24] MEDS: ATORVASTATIN 40 MG TAB PO SCH (20:01)
[2024-11-24] MEDS ORDERED: NON FORMULARY DRUG (Rosuvastatin 10 MG Tablet) PO SCH (21:00)
--- NOTE | 2024-11-24 21:13 | P.ANPRN ---
Procedure Note - Anesthesia - Invasive Line Left Arterial Line Time Out Performed: Yes Date of Procedure: 11/24/24 Time of Procedure: 07:19 Location of Patient: PreOp Preparation: Sterile Prep, Sterile Dressing Arterial Line Location: Briachial Ultrasound Used: No Purpose - Visualization and Identification of Vasculature: No Image Stored and Saved: No Narrative: Invasive line placement per sterile protocol utilized.
[2024-11-24] MEDS: PHENYLEPHRINE 40 MG in SODIUM CHLORIDE 0.9% 250 ML IV SCH (21:43)
--- NOTE | 2024-11-24 22:19 | CONS ---
CONSULTATION REASON FOR CONSULTATION: Advice regarding atrial fibrillation and other medical issues, requested by Vascular Surgery. HISTORY OF PRESENT ILLNESS: This is a 69-year-old woman with a past medical history of multiple medical problems, was admitted recently with right-sided weakness. The patient underwent left carotid endarterectomy with patch angioplasty for carotid stenosis. There is no history of any fever, rigors, chills, headache, loss of consciousness, or seizures at this time. PAST MEDICAL HISTORY: CVA, TIA, DVT, GERD, myocardial infarction, C diff, ESBL, MRSA, bariatric surgery. Rest of the history and rest of the chart is also reviewed. HOME MEDICATIONS: Reviewed include Eliquis. Dose and rest of medications reviewed. ALLERGIES: None. FAMILY HISTORY: History of stroke in the family. SOCIAL HISTORY: Previous history of smoking. REVIEW OF SYSTEMS: Fourteen-point review is negative except as mentioned earlier. PHYSICAL EXAMINATION: VITAL SIGNS: Pulse is 57, blood pressure 124/56, respirations 16. HEENT: Conjunctivae normal. NECK: No JVD. Status post left carotid endarterectomy. CARDIOVASCULAR: S1, S2. RESPIRATIONS: Breath sounds diminished at the bases. ABDOMEN: Soft. LEGS: No edema. NERVOUS SYSTEM: Nonfocal. LABORATORY DATA: WBC 2.6. ASSESSMENT: 1. Status post left carotid endarterectomy. 2. Mild leukopenia and thrombocytopenia. 3. History of deep venous thrombosis. 4. Gastroesophageal reflux disease. 5. Hypertension. 6. Hyperlipidemia. 7. History of bariatric surgery. 8. History of anxiety, panic disorder. RECOMMENDATIONS AND DISCUSSION: This is a 69-year-old woman, who presented after carotid endarterectomy. At this time, I recommend to continue current management and continue symptomatic treatment. We will resume the home medications, incentive spirometry, DVT prophylaxis. We will follow the patient closely. The patient may be asked to follow with Dr. Kwame Mahoney, who is a primary physician. MMODL / IJN: [id number] /
[2024-11-24] MEDS: ALPRAZolam 1 MG TAB PO PRN (22:57)
[2024-11-25] MEDS: FOLIC ACID 1 MG TAB PO SCH (08:30)
[2024-11-25] MEDS: PANTOPRAZOLE 40 MG TABLET PO SCH (08:30)
[2024-11-25] MEDS: SERTRALINE 50 MG TAB PO SCH (08:30)
[2024-11-25] MEDS: APIXABAN 5 MG TAB PO SCH (08:30)
[2024-11-25] MEDS: cilostazoL 100 MG TAB PO SCH (08:30)
[2024-11-25] MEDS: ASPIRIN 81 MG PO SCH (08:30)
[2024-11-25] MEDS: EZETIMIBE 10 MG TAB PO SCH (08:30)
[2024-11-25] MEDS: lisinopriL 10 MG TAB PO SCH (08:41)
[2024-11-25] MEDS ORDERED: CLOPIDOGREL 75 MG TAB PO SCH (09:00)
[2024-11-25 12:50] VITALS: BMI 30.5
--- NOTE | 2024-11-25 18:30 | P.DS ---
Providers Date of admission: 11/24/24 05:34 Expected date of discharge: 11/26/24 Attending physician: Laureen Tovar, Consults: 11/24/24 10:17 Consult Physician Routine Consulting Provider: Jamila Moran Consult Reason/Comments: med mgmnt Do you want consulting provider notified?: Yes Primary care physician: [facility] Course: Patient is a 69-year-old female who underwent a left carotid endarterectomy and patch angioplasty for high-grade internal carotid artery stenosis. She has been convalescing well, initially her postoperative course she did have some postoperative nausea, she is doing much better from this. Due to the lateness of the day she would like to stay overnight however is currently at this time in stable and satisfactory condition for discharge home. Will continue to monitor her overnight to ensure her continued ability to eat without any following nausea from the anesthesia medications. Her blood pressure has been on the lo wer side, will hold her lisinopril at this time. If she is found to be in stable condition from a medical standpoint, may be discharged home tomorrow in the morning. Patient Condition at Discharge: Good Plan - Discharge Summary Discharge Rx Participant: No New Discharge Prescriptions: New Aspirin 81 mg PO DAILY tab Acetaminophen Tab [Tylenol] 650 mg PO Q4HR PRN tab PRN Reason: Pain Continue estradioL [Estrace] 1 mg PO DAILY ALPRAZolam [Xanax] 1 mg PO DAILY PRN PRN Reason: Anxiety Ezetimibe [Zetia] 10 mg PO DAILY lisinopriL [Zestril] 10 mg PO DAILY rOPINIRole HCL [Requip] 2 mg PO HS Cyanocobalamin [Vitamin B-12 Injection] 1,000 mcg SQ Q30D Sertraline [Zoloft] 150 mg PO DAILY Pantoprazole [Protonix] 40 mg PO DAILY Apixaban [Eliquis] 5 mg PO BID tab cilostazoL [Pletal] 100 mg PO BID 30 Days #60 tab Folic Acid 1 mg PO DAILY 30 Days #30 tab Temazepam [Restoril] 30 mg PO HS PRN PRN Reason: Insomnia traZODone HCL [Desyrel] 50 mg PO HS Rosuvastatin [Crestor] 10 mg PO HS Discharge Medication List estradioL [Estrace] 1 mg PO DAILY 09/25/17 [History] ALPRAZolam [Xanax] 1 mg PO DAILY PRN 08/07/20 [History] rOPINIRole HCL [Requip] 2 mg PO HS 09/10/22 [History] Cyanocobalamin [Vitamin B-12 Injection] 1,000 mcg SQ Q30D 10/12/23 [History] Ezetimibe [Zetia] 10 mg PO DAILY 10/12/23 [History] Sertraline [Zoloft] 150 mg PO DAILY 04/07/24 [History] lisinopriL [Zestril] 10 mg PO DAILY 04/07/24 [History] Pantoprazole [Protonix] 40 mg PO DAILY 05/19/24 [History] Apixaban [Eliquis] 5 mg PO BID tab 05/20/24 [Rx] Folic Acid 1 mg PO DAILY 30 Days #30 tab 05/27/24 [Rx] cilostazoL [Pletal] 100 mg PO BID 30 Days #60 tab 05/27/24 [Rx] Rosuvastatin [Crestor] 10 mg PO HS 11/21/24 [History] Temazepam [Restoril] 30 mg PO HS PRN 11/21/24 [History] traZODone HCL [Desyrel] 50 mg PO HS 11/21/24 [History] Acetaminophen Tab [Tylenol] 650 mg PO Q4HR PRN tab 11/24/24 [Rx] Aspirin 81 mg PO DAILY tab 11/24/24 [Rx] Follow up Appointment(s)/Referral(s): Laureen Tovar DO [STAFF PHYSICIAN] - 2 Weeks Activity/Diet/Wound Care/Special Instructions: No strenuous activity or heavy lifting greater than 10 pounds. May shower tomorrow 11/26/2024 but no tub bathing or soaking. Watch incision site for infection including redness, drainage, or temperature greater than 100.4. If you notice he symptoms please call office. No driving for 1 to 2 weeks. Discharge Disposition: HOME SELF-CARE
[2024-11-25] MEDS: ACETAMINOPHEN TAB 325 MG TAB PO PRN (21:02)
--- NOTE | 2024-11-25 21:52 | PN ---
PROGRESS NOTE DATE OF SERVICE: 11/25/2024 SUBJECTIVE: This is a 69-year-old woman, who was admitted after left carotid enterectomy, is improving significantly. No chest pain. No palpitations. No fever. OBJECTIVE: VITAL SIGNS: Pulse 63, blood pressure 105/42, respirations 19. CHEST: Clear to auscultation. CARDIOVASCULAR: S1, S2. ABDOMEN: Soft. LEGS: Status post surgery. LABORATORY DATA: Noted. ASSESSMENT: 1. Status post left carotid endarterectomy. 2. Mild leukopenia and thrombocytopenia, for outpatient followup. 3. History of deep venous thrombosis. 4. Gastroesophageal reflux disease. 5. Multiple medical issues. RECOMMENDATIONS: Recommend to continue current medications, continue symptomatic treatment. DVT prophylaxis. Recommend close followup with primary physician with repeat labs. MMODL / IJN: [id number] /
[2024-11-26 06:40] LABS: Basophils % (A) 0 %; Eosinophils # (A) 0.1 k/uL (0-0.7); Eosinophils % (A) 2 %; HGB 10.9 gm/dL (11.4-16.0); Lymphocytes # (A) 0.7 k/uL (1.0-4.8); Lymphocytes % (A) 18 %; MCH 30.9 pg (25.0-35.0); MCHC 34.1 g/dL (31.0-37.0); MCV 90.6 fL (80.0-100.0); Mean Platelet Volume 8.5; Monocytes # (A) 0.2 k/uL (0-1.0); Monocytes % (A) 6 %; Neutrophils # (A) 2.9 k/uL (1.3-7.7); Neutrophils % (A) 74 %; Platelet Count 102 k/uL (150-450); RBC 3.53 m/uL (3.80-5.40); RDW 12.9 % (11.5-15.5); WBC 3.9 k/uL (3.8-10.6)
[2024-11-26 07:03] LABS: African American GFR (CKD) 67 (>60 ml/min/1.73 sqM); Anion Gap 3 mmol/L; Blood Urea Nitrogen 12 mg/dL (7-17); Calcium 8.5 mg/dL (8.4-10.2); Carbon Dioxide 29 mmol/L (22-30); Chloride 104 mmol/L (98-107); Glucose 88 mg/dL (74-99); Non-African American GFR(CKD) 58 (>60 ml/min/1.73 sqM); Potassium 4.4 mmol/L (3.5-5.1); Sodium 136 mmol/L (137-145)
[2024-11-26 09:15] VITALS: TEMP 97.9
[2024-11-26 13:06] VITALS: BP 121/62; PULSE 75; RESP 24
--- NOTE | 2024-11-28 09:07 | PN ---
PROGRESS NOTE DATE OF SERVICE: 11/26/2024 HISTORY OF PRESENT ILLNESS: This 69-year-old woman was admitted after carotid endarterectomy, is closely monitored. The blood pressure slight fractures. No chest pain. No palpitation. PHYSICAL EXAMINATION: VITAL SIGNS: Pulse is 75, blood pressure 110/62, respirations 25. CHEST: Clear. CARDIOVASCULAR: S1, S2. ABDOMEN: Soft. NECK: Status post surgery. LABORATORY DATA: Hemoglobin 10.9, platelets 102. ASSESSMENT: 1. Status post left carotid endarterectomy. 2. Mild leukopenia and thrombocytopenia, for outpatient followup. 3. History of deep venous thrombosis. 4. Hypertension. 5. Gastroesophageal reflux disease. 6. Multiple medical issues. RECOMMENDATIONS: Recommend to continue current management, continue symptomatic treatment. Closely follow up with primary physician in the outpatient setting. Otherwise, continue with lisinopril and closely follow the blood pressure. MMODL / IJN: [id number] /
[2024-11-30] MEDS ORDERED: CYANOCOBALAMIN 1,000 MCG/ML 1 ML VIAL SQ SCH (09:00)
== END 2024-11-26 14:01 | disposition home or self-care (01) | DRG 39 ==
LOC: 2ORMAIN 05:34 → 2SICU 12:14
PROVIDERS: ADMIT Surgery; ATTEND Surgery
PROC: 03CJ0ZZ Extirpation of Matter from Left Common Carotid Artery, Open Approach (ICD-10-PCS; 2024-11-24)
PROC: 03UJ0KZ Supplement Left Common Carotid Artery with Nonautologous Tissue Substitute, Open Approach (ICD-10-PCS; 2024-11-24)
PROC: 03CL0ZZ Extirpation of Matter from Left Internal Carotid Artery, Open Approach (ICD-10-PCS; principal; 2024-11-24 07:30)
DX: I65.22 Occlusion and stenosis of left carotid artery (principal); D69.6 Thrombocytopenia, unspecified; D72.819 Decreased white blood cell count, unspecified; E78.5 Hyperlipidemia, unspecified; I10 Essential (primary) hypertension; F32.9 Major depressive disorder, single episode, unspecified; I73.9 Peripheral vascular disease, unspecified; G25.81 Restless legs syndrome; K21.9 Gastro-esophageal reflux disease without esophagitis; F41.0 Panic disorder [episodic paroxysmal anxiety]; J44.9 Chronic obstructive pulmonary disease, unspecified; I25.2 Old myocardial infarction; Z79.01 Long term (current) use of anticoagulants; Z79.899 Other long term (current) drug therapy; Z86.718 Personal history of other venous thrombosis and embolism; Z86.73 Personal history of transient ischemic attack (TIA), and cerebral infarction without residual deficits; Z87.891 Personal history of nicotine dependence; Z98.84 Bariatric surgery status; Z82.3 Family history of stroke
CPT/HCPCS: 80048; 83735; 85025; 88304; 88311

== ENCOUNTER 2025-02-08 19:37 | Outpatient (CLI) | payer MEDICARE ==
--- NOTE | 2025-02-09 15:12 | P.PCN ---
Description of Procedure: CLINICAL: Titration with positive air pressure has been done for correction of respiratory abnormalities during sleep. DESCRIPTION OF PROCEDURE: The standard montage for clinical polysomnography included the electroencephalogram, the electrocardiogram, the mentalis surface electromyography and Lead II cardiography. The respiratory battery consisted of measurements of nasal /buccal air flow, pressure transducer measurements from the nose, thoracic and /or abdominal effort and intercostal surface electromyography. Video monitoring has been done to check for any parasomnia events. Nocturnal oxyhemoglobin saturations were obtained by finger oximetry. Step-dudley titration with positive airway pressure was utilized to control respiratory events. Raw data of sleep recording has been reviewed and is adequate. RESULTS: Sleep efficiency was 62.4%. Latency to sleep onset was significantly prolonged to 62.5 minutes.]. Sleep architecture showed stage N1 was short 3.2%, Delta sleep was absent 0%, REM sleep was decreased to 14.7%. Heart rate was minimum 54 BPM, maximum 62 BPM, average 57 BPM. EMG showed 0.7 periodic limb movements per hour. PAP titration have been done with CPAP up to the pressure 6 cm H2O. The best results were at the pressure 6 cm H2O. Apnea hypopnea index reduced to 0. IMPRESSION: 1. Obstructive sleep apnea hypopnea syndrome on controle with PAP treatment. 2. No significant periodic limb movements have been documented. Please see other impressions from consultation. PLAN: 1. The patient will have treatment with positive air pressure equipment with the level of pressure AutoPap 46 cm H2O and should use it every night for the whole night. 2. Watching weight. 3. Sleep hygiene with regular time in bed for at least 8 hours. 4. No driving if feeling any sleepiness. 5. I will see the patient for follow up visit to explain the results of the test, recommendations, check compliance with treatment and make any necessary adjustment related to mask fitting, pressure and humidification. Thank you very much for allowing me to participate in the management of your patient. Sincerely, Harley Garcia MD, PhD, FAASM Diplomat of [place] [employer] Sleep Medicine Board of [place] [employer] of [employer] Medicine Neuropathologist of [facility] [place] cc: Nicole Mahoney DO
== END 2025-02-09 05:30 | disposition home or self-care (01) ==
LOC: 3 N SLEEP 19:37
PROVIDERS: ATTEND Internal Medicine
DX: G47.33 Obstructive sleep apnea (adult) (pediatric) (principal); Z99.89 Dependence on other enabling machines and devices; Z87.891 Personal history of nicotine dependence
CPT/HCPCS: 95811

== ENCOUNTER → 2025-02-14 | Outpatient (CLI) | payer MEDICARE ==
[2025-02-14 19:37] LABS: Basophils # (A) 0.01 X 10*3/uL (0.00-0.10); Basophils % (A) 0.3 %; Eosinophils # (A) 0.03 X 10*3/uL (0.04-0.35); Eosinophils % (A) 0.8 %; HCT 35.6 % (37.2-46.3); HGB 11.9 g/dL (12.0-15.0); Lymphocytes # (A) 0.71 X 10*3/uL (0.90-5.00); Lymphocytes % (A) 19.2 %; MCH 29.4 pg (27.0-32.0); MCHC 33.4 g/dL (32.0-37.0); MCV 87.9 FL (80.0-97.0); Mean Platelet Volume 11.3 FL (9.5-12.2); Monocytes # (A) 0.26 X 10*3/uL (0.20-1.00); NRBC Per 100 WBC 0 X 10*3/uL (0.00-0.01); Neutrophils # (A) 2.68 X 10*3/uL (1.80-7.70); Neutrophils % (A) 72.4 %; Platelet Count 116 X 10*3/uL (140-440); RBC 4.05 X 10*6/uL (4.10-5.20); RDW 12.4 % (11.5-14.5)
[2025-02-14 20:07] LABS: Amylase 77 U/L (23-121); Lipase 31 U/L (14-63); T4, Free (Free Thyroxine) 0.89 ng/dL (0.80-1.80)
[2025-02-14 20:20] LABS: BUN/Creat Ratio 10.27 Ratio (12.00-20.00); Blood Urea Nitrogen 11.3 mg/dL (9.0-27.0); Glucose 43 mg/dL (70-110)
[2025-02-14 20:21] LABS: ALT 21 U/L (8-44); AST 25 U/L (13-35); Albumin 4.2 g/dL (3.8-4.9); Alkaline Phosphatase 100 U/L (41-126); Bilirubin, Conjugated <0.20 mg/dL (0.20-0.40); Bilirubin,Unconjugated >0.10 mg/dL (0.20-1.00); Calcium 8.9 mg/dL (8.7-10.3); Chloride 105 mmol/L (96-109); Potassium 3.6 mmol/L (3.5-5.5); Sodium 140 mmol/L (135-145); Total Bilirubin 0.3 mg/dL (0.3-1.2); Total Protein 6.2 g/dL (6.2-8.2)
== END | disposition home or self-care (01) ==
LOC: LABWHC1 14:09
PROVIDERS: ATTEND Family Medicine
DX: R19.7 Diarrhea, unspecified (principal); R63.4 Abnormal weight loss
CPT/HCPCS: 36415; 80048; 80076; 82150; 83690; 84439; 84443; 84481; 85025

== ENCOUNTER 2025-02-18 09:49 | Observation (INO) | payer MEDICARE ==
--- NOTE | 2025-02-18 10:17 | ED ---
General Adult HPI - General Chief complaint: Chest Pain Stated complaint: Chest pain, ONUR Time Seen by Provider: 02/18/25 10:06 Source: patient, RN notes reviewed Mode of arrival: wheelchair Limitations: no limitations - History of Present Illness Initial comments: Patient is a 69-year-old female present to the emergency department with concerns with chest discomfort. Onset of symptoms was around 6 AM. Patient was at rest. Discomfort is somewhat severe at this time. Patient also feels somewhat short of breath and does have nausea. Patient had difficulty swallowing earlier. No history of similar symptoms previously. - Related Data Home Medications Medication Instructions Recorded Confirmed ALPRAZolam [Xanax] 1 mg PO DAILY PRN 08/07/20 02/18/25 rOPINIRole HCL [Requip] 2 mg PO HS 09/10/22 02/18/25 Cyanocobalamin [Vitamin B-12 1,000 mcg SQ Q30D 10/12/23 02/18/25 Injection] Ezetimibe [Zetia] 10 mg PO DAILY 10/12/23 02/18/25 Sertraline [Zoloft] 150 mg PO DAILY 04/07/24 02/18/25 lisinopriL [Zestril] 10 mg PO DAILY 04/07/24 02/18/25 Pantoprazole [Protonix] 40 mg PO DAILY 05/19/24 02/18/25 Rosuvastatin [Crestor] 10 mg PO DAILY 11/21/24 02/18/25 Temazepam [Restoril] 30 mg PO HS 11/21/24 02/18/25 traZODone HCL [Desyrel] 50 mg PO HS 11/21/24 02/18/25 Dicyclomine [Bentyl] 10 mg PO TID 02/18/25 02/18/25 estradioL [Estrace] 1 mg PO DAILY 02/18/25 02/18/25 Previous Rx's Medication Instructions Recorded Apixaban [Eliquis] 5 mg PO BID tab 05/20/24 cilostazoL [Pletal] 100 mg PO BID 30 Days #60 tab 05/27/24 Allergies Allergy/AdvReac Type Severity Reaction Status Date / Time olanzapine [From Zyprexa] Allergy Unknown Verified 02/18/25 10:43 Review of Systems ROS Statement: Those systems with pertinent positive or pertinent negative responses have been documented in the HPI. ROS Other: All systems not noted in ROS Statement are negative. Constitutional: Denies: fever Eyes: Denies: eye pain ENT: Denies: ear pain Respiratory: Reports: as per HPI, dyspnea Cardiovascular: Reports: as per HPI, chest pain Gastrointestinal: Reports: nausea, diarrhea (Chronic). Denies: abdominal pain Musculoskeletal: Denies: back pain Past Medical History Past Medical History: Coronary Artery Disease (CAD), CVA/TIA, Deep Vein Thrombosis (DVT), GERD/Reflux, Hyperlipidemia, Hypertension, Myocardial Infarction (PR), Pneumonia, Vascular Disorder Additional Past Medical History / Comment(s): Hx right lower extremity DVT 1996, peripheral vascular disease. Restless leg syndrome, adrenal gland mass. Hx CVA Aug 2022 - no residual effects. past hx. pneumonia 2 yrs. ago insomnia Last Myocardial Infarction Date:: 10/2014 History of Any Multi-Drug Resistant Organisms: C-DIFF, ESBL, MRSA Date of last positivie culture/infection: 2000 MDRO Source:: abdominal wound Past Surgical History: Appendectomy, Bariatric Surgery, Breast Surgery, Cholecystectomy, Heart Catheterization, Hysterectomy, Orthopedic Surgery Additional Past Surgical History / Comment(s): Gastric bypass and subsequent multiple surgeries d/t incision not healing properly and bowel was knicked, ex ploratory laparotomies, bilateral fem/pop bypass/stents, left wrist fracture with surgery/hardware, bilateral foot bunionectomies, left rotator cuff repair, left knee arthroscopy, left breast benign biopsy, EGD, colonoscopies/benign polypectomy, right collar bone surgery. Past Anesthesia/Blood Transfusion Reactions: No Reported Reaction Past Psychological History: Anxiety, Panic Disorder Smoking Status: Former smoker Past Alcohol Use History: Occasional Past Drug Use History: None Reported - Past Family History Father Family Medical History: Coronary Artery Disease (CAD), CVA/TIA, GERD/Reflux, Hyperlipidemia, Hypertension Additional Family Medical History / Comment(s): STROKE AT AGE 50. Father of pnemonia at the age of 63 yrs. Mother Family Medical History: Cancer, CVA/TIA, GERD/Reflux, Hyperlipidemia Additional Family Medical History / Comment(s): Skin cancer. General Exam Limitations: no limitations General appearance: alert, in no apparent distress Head exam: Present: normocephalic Eye exam: Present: normal appearance ENT exam: Present: normal oropharynx Neck exam: Present: normal inspection Respiratory exam: Present: normal lung sounds bilaterally. Absent: chest wall tenderness Cardiovascular Exam: Present: regular rate, normal rhythm, normal heart sounds Expanded Peripheral pulses: 2+: Radial (R), Radial (L), Posterior Tibialis (R), Posterior Tibialis (L) GI/Abdominal exam: Present: soft. Absent: tenderness Extremities exam: Present: normal inspection. Absent: pedal edema, calf tenderness Neurological exam: Present: alert Psychiatric exam: Present: normal affect, normal mood Skin exam: Present: normal color Course Vital Signs 02/18/25 09:50 Temperature 98.5 F Pulse Rate 62 Respiratory 22 Rate Blood Pressure 132/75 O2 Sat by Pulse 95 Oximetry EKG Findings - EKG Results: EKG: interpreted by ELAD, sinus rhythm, normal axis, normal QRS, normal ST/T Medical Decision Making - Medical Decision Making Was pt. sent in by a medical professional or institution (, PA, WINDOWS APPLICATION DEVELOPER, urgent care, hospital, or [facility]...) When possible be specific @ -No Did you speak to anyone other than the patient for history (EMS, parent, family, police, friend...)? What history was obtained from this source @ -No Did you review nursing and triage notes (agree or disagree)? Why? @ -I reviewed and agree with nursing and triage notes Were old charts reviewed (outside hosp., previous admission, EMS record, old EKG, old radiological studies, urgent care reports/EKG's, [facility] records)? Report findings @ -No old charts were reviewed Differential Diagnosis (chest pain, altered mental status, abdominal pain women, abdominal pain men, vaginal bleeding, weakness, fever, dyspnea, syncope, headache, dizziness, GI bleed, back pain, seizure, CVA, palpatations, mental health, musculoskeletal)? @ -Differential Chest Pain: Stable Angina, Unstable Angina, STEMI, NSTEMI Aortic Dissection, Pneumothorax, Musculoskeletal, Esophageal Spasm GERD, Cholecystitis, Pancreatitis, Zoster, this is not meant to be an all-inclusive list. EKG interpreted by me (3pts min.). @ -As above X-rays interpreted by me (1pt min.). @ -Chest x-ray shows no acute process CT interpreted by me (1pt min.). @ -None done U/S interpreted by me (1pt. min.). @ -None done What testing was considered but not performed or refused? (CT, X-rays, U/S, labs)? Why? @ -None What meds were considered but not given or refused? Why? @ - Did you discuss the management of the patient with other professionals (professionals i.e. , PA, WINDOWS APPLICATION DEVELOPER, lab, RT, psych nurse, director of social media marketing, filling mixer, teacher, commissioned security officer, case management coordinator)? Give summary @ -Case was discussed with Dr. Nicole who will admit covering Dr. Mahoney Was smoking cessation discussed for >3mins.? @ -No Was critical care preformed (if so, how long)? @ -No Were there social determinants of health that impacted care today? How? (Homelessness, low income, unemployed, alcoholism, drug addiction, transportation, low edu. Level, literacy, decrease access to med. care, usp, rehab)? @ -No Was there de-escalation of care discussed even if they declined (Discuss DNR or withdrawal of care, Hospice)? DNR status @ -No What co-morbidities impacted this encounter? (DM, HTN, Smoking, COPD, CAD, Cancer, CVA, ARF, Chemo, Hep., AIDS, mental health diagnosis, sleep apnea, morbid obesity)? @ -None Was patient admitted / discharged? Hospital course, mention meds given and route, prescriptions, significant lab abnormalities, going to OR and other pertinent info. @ -Patient presents with chest discomfort, initial evaluation unremarkable. Patient reevaluated and resolved with 1 nitroglycerin. Patient will be admitted with cardiac consult. Patient updated. Admission orders written. Undiagnosed new problem with uncertain prognosis? @ -No Drug Therapy requiring intensive monitoring for toxicity (Heparin, Nitro, Insulin, Cardizem)? @ -No Were any procedures done? @ -No Diagnosis/symptom? @ -Chest pain Acute, or Chronic, or Acute on Chronic? @ -Acute Uncomplicated (without systemic symptoms) or Complicated (systemic symptoms)? @ -Default Side effects of treatment? @ -No Exacerbation, Progression, or Severe Exacerbation? @ -No Poses a threat to life or bodily function? How? (Chest pain, USA, PR, pneumonia, PE, COPD, DKA, ARF, appy, cholecystitis, CVA, Diverticulitis, Homicidal, Suicidal, threat to staff... and all critical care pts) @ -Threat to pulmonary function - Lab Data Result diagrams: 02/18/25 10:40 02/18/25 10:40 Lab Results 02/18/25 02/18/25 02/18/25 Range/Units 10:40 10:40 10:40 WBC 4.0 (3.8-10.6) k/uL RBC 4.57 (3.80-5.40) m/uL Hgb 13.2 (11.4-16.0) gm/dL Hct 40.0 (34.0-46.0) % MCV 87.5 (80.0-100.0) fL MCH 28.8 (25.0-35.0) pg MCHC 32.9 (31.0-37.0) g/dL RDW 13.0 (11.5-15.5) % Plt Count 140 L (150-450) k/uL MPV 8.3 Neutrophils % 72 % Lymphocytes % 21 % Monocytes % 5 % Eosinophils % 1 % Basophils % 0 % Neutrophils # 2.9 (1.3-7.7) k/uL Lymphocytes # 0.8 L (1.0-4.8) k/uL Monocytes # 0.2 (0-1.0) k/uL Eosinophils # 0.0 (0-0.7) k/uL Basophils # 0.0 (0-0.2) k/uL PT 10.7 (10.0-12.5) sec INR 1.0 (<1.2) APTT 23.3 (22.0-30.0) sec D-Dimer 0.19 (<0.60) mg/L FEU Sodium 136 L (137-145) mmol/L Potassium 4.2 (3.5-5.1) mmol/L Chloride 104 (98-107) mmol/L Carbon Dioxide 24 (22-30) mmol/L Anion Gap 8 mmol/L BUN 12 (7-17) mg/dL Creatinine 0.99 (0.52-1.04) mg/dL Est GFR (CKD-EPI)AfAm 67 (>60 ml/min/1.73 sqM) Est GFR (CKD-EPI)NonAf 58 (>60 ml/min/1.73 sqM) Glucose 93 (74-99) mg/dL Calcium 9.2 (8.4-10.2) mg/dL Magnesium 2.2 (1.6-2.3) mg/dL Total Bilirubin 0.7 (0.2-1.3) mg/dL AST 33 (14-36) U/L ALT 25 (4-34) U/L Alkaline Phosphatase 85 (38-126) U/L Troponin I (0.000-0.034) ng/mL NT-Pro-B Natriuret Pep 328 pg/mL Total Protein 6.9 (6.3-8.2) g/dL Albumin 4.6 (3.5-5.0) g/dL Amylase 84 (30-110) U/L Lipase 124 (23-300) U/L 02/18/25 Range/Units 10:40 WBC (3.8-10.6) k/uL RBC (3.80-5.40) m/uL Hgb (11.4-16.0) gm/dL Hct (34.0-46.0) % MCV (80.0-100.0) fL MCH (25.0-35.0) pg MCHC (31.0-37.0) g/dL RDW (11.5-15.5) % Plt Count (150-450) k/uL MPV Neutrophils % % Lymphocytes % % Monocytes % % Eosinophils % % Basophils % % Neutrophils # (1.3-7.7) k/uL Lymphocytes # (1.0-4.8) k/uL Monocytes # (0-1.0) k/uL Eosinophils # (0-0.7) k/uL Basophils # (0-0.2) k/uL PT (10.0-12.5) sec INR (<1.2) APTT (22.0-30.0) sec D-Dimer (<0.60) mg/L FEU Sodium (137-145) mmol/L Potassium (3.5-5.1) mmol/L Chloride (98-107) mmol/L Carbon Dioxide (22-30) mmol/L Anion Gap mmol/L BUN (7-17) mg/dL Creatinine (0.52-1.04) mg/dL Est GFR (CKD-EPI)AfAm (>60 ml/min/1.73 sqM) Est GFR (CKD-EPI)NonAf (>60 ml/min/1.73 sqM) Glucose (74-99) mg/dL Calcium (8.4-10.2) mg/dL Magnesium (1.6-2.3) mg/dL Total Bilirubin (0.2-1.3) mg/dL AST (14-36) U/L ALT (4-34) U/L Alkaline Phosphatase (38-126) U/L Troponin I <0.012 (0.000-0.034) ng/mL NT-Pro-B Natriuret Pep pg/mL Total Protein (6.3-8.2) g/dL Albumin (3.5-5.0) g/dL Amylase (30-110) U/L Lipase (23-300) U/L Disposition Clinical Impression: Chest pain Disposition: ADMITTED IP TO THIS HOSP Is patient prescribed a controlled substance at d/c from ED?: No Referrals: Kwame Mahoney DO [Primary Care Provider] - 1-2 days Time of Disposition: 13:00
[2025-02-18] MEDS: ASPIRIN 81 MG PO STA (10:31)
[2025-02-18] MEDS: NITROGLYCERIN SL TABS 0.4 MG TAB SUBLINGUAL STA ×3 (10:32→11:49)
[2025-02-18 10:50] LABS: Basophils % (A) 0 %; Eosinophils % (A) 1 %; HGB 13.2 gm/dL (11.4-16.0); Lymphocytes # (A) 0.8 k/uL (1.0-4.8); Lymphocytes % (A) 21 %; MCH 28.8 pg (25.0-35.0); MCHC 32.9 g/dL (31.0-37.0); MCV 87.5 fL (80.0-100.0); Mean Platelet Volume 8.3; Monocytes # (A) 0.2 k/uL (0-1.0); Monocytes % (A) 5 %; Neutrophils # (A) 2.9 k/uL (1.3-7.7); Neutrophils % (A) 72 %; Platelet Count 140 k/uL (150-450); RBC 4.57 m/uL (3.80-5.40)
--- NOTE | 2025-02-18 10:55 | XR ---
EXAMINATION TYPE: XR chest 2V DATE OF EXAM: 02/18/2025 CLINICAL INDICATION: Female, 69 years old with history of Chest Pain, TECHNIQUE: Frontal and lateral views of the chest are obtained. COMPARISON: Chest x-ray October 12, 2023 FINDINGS: There is no focal air space opacity, pleural effusion, or pneumothorax seen. Cardiomegaly is redemonstrated. Surgical changes right scapula again seen. Cholecystectomy clips are redemonstrate d. IMPRESSION: Cardiomegaly without acute pulmonary process. [facility], , 02/18/2025 10:53 AM
[2025-02-18 11:10] LABS: NT-Pro-B-Type Natriuretic Pept 328 pg/mL; Partial Thromboplastin Time 23.3 sec (22.0-30.0); Prothrombin Time 10.7 sec (10.0-12.5)
[2025-02-18 11:45] LABS: ALT 25 U/L (4-34); AST 33 U/L (14-36); African American GFR (CKD) 67 (>60 ml/min/1.73 sqM); Albumin 4.6 g/dL (3.5-5.0); Alkaline Phosphatase 85 U/L (38-126); Amylase 84 U/L (30-110); Anion Gap 8 mmol/L; Blood Urea Nitrogen 12 mg/dL (7-17); Calcium 9.2 mg/dL (8.4-10.2); Carbon Dioxide 24 mmol/L (22-30); Chloride 104 mmol/L (98-107); Glucose 93 mg/dL (74-99); Lipase 124 U/L (23-300); Magnesium 2.2 mg/dL (1.6-2.3); Non-African American GFR(CKD) 58 (>60 ml/min/1.73 sqM); Potassium 4.2 mmol/L (3.5-5.1); Sodium 136 mmol/L (137-145); Total Bilirubin 0.7 mg/dL (0.2-1.3); Total Protein 6.9 g/dL (6.3-8.2)
[2025-02-18] MEDS: NITROGLYCERIN SL TABS 0.4 MG TAB SUBLINGUAL PRN (15:02)
[2025-02-18] MEDS: DICYCLOMINE 10 MG CAP PO SCH (17:43)
[2025-02-18] MEDS: NITROGLYCERIN OINT 1 INCH/GM PACKET TOPICAL SCH (17:43)
[2025-02-18] MEDS: TEMAZEPAM 15 MG CAP PO SCH (21:44)
[2025-02-18] MEDS: traZODone HCL 50 MG TAB PO SCH (21:45)
[2025-02-18] MEDS: cilostazoL 100 MG TAB PO SCH (21:45)
--- NOTE | 2025-02-18 21:45 | P.HPIM ---
History of Present Illness This is a pleasant 69 years old female with past medical history of multiple medical problems. Presents because of chest pain that started this morning rated on admission as 9/10 currently about resolved. Associate with some short ness of breath. Chest pain mainly was central nonradiating completely resolved by nitro. Currently patient dyspnea improved as well with no coughing. No specific GI or symptoms. No difficulty ambulating. Patient reports some loose stool about 15 times. Patient also states decreased appetite. Patient states that she follow-up with Dr. Trivedi for workup for her loss of weight. Patient denies history of diabetes. Patient hemodynamically stable and afebrile, mildly tachypneic No significant labs abnormality. INR 1.0. Troponin negative D-dimer is negative at 0.19. Troponin less than 0.012. Review of Systems Review of systems CONSTITUTIONAL: No fever, no malaise, no fatigue. HEENT: No recent visual problems or hearing problems. Denied any sore throat. CARDIOVASCULAR: No orthopnea, PND, no palpitations, no syncope. PULMONARY: No shortness of breath, no cough, no hemoptysis. GASTROINTESTINAL: No diarrhea, no nausea, no vomiting, no abdominal pain. Normoactive bowel sounds. NEUROLOGICAL: No headaches, no weakness, no numbness. HEMATOLOGICAL: Denies any bleeding or petechiae. GENITOURINARY: Denies any burning micturition, frequency, or urgency. MUSCULOSKELETAL/RHEUMATOLOGICAL: Denies any joint pain, swelling, or any muscle pain. ENDOCRINE: Denies any polyuria or polydipsia. Past Medical History Past Medical History: Coronary Artery Disease (CAD), CVA/TIA, Deep Vein Thrombosis (DVT), GERD/Reflux, Hyperlipidemia, Hypertension, Myocardial Infarction ([place]), Pneumonia, Vascular Disorder Additional Past Medical History / Comment(s): Hx right lower extremity DVT 1996, peripheral vascular disease. Restless leg syndrome, adrenal gland mass. Hx CVA Aug 2022 - no residual effects. past hx. pneumonia 2 yrs. ago insomnia Last Myocardial Infarction Date:: 10/2014 History of Any Multi-Drug Resistant Organisms: C-DIFF, ESBL, MRSA Date of last positivie culture/infection: 2000 MDRO Source:: abdominal wound Past Surgical History: Appendectomy, Bariatric Surgery, Breast Surgery, Cholecystectomy, Heart Catheterization, Hysterectomy, Orthopedic Surgery Additional Past Surgical History / Comment(s): Gastric bypass and subsequent multiple surgeries d/t incision not healing properly and bowel was knicked, exploratory laparotomies, bilateral fem/pop bypass/stents, left wrist fracture with surgery/hardware, bilateral foot bunionectomies, left rotator cuff repair, left knee arthroscopy, left breast benign biopsy, EGD, colonoscopies/benign polypectomy, right collar bone surgery. Past Anesthesia/Blood Transfusion Reactions: No Reported Reaction Past Psychological History: Anxiety, Panic Disorder Additional Psychological History / Comment(s): Pt resides with her spouse. She states she has high anxiety. Pt uses no assistive device. She drives. Smoking Status: Former smoker Past Alcohol Use History: Occasional Additional Past Alcohol Use History / Comment(s): Started smoking in 1973 and quit in 2008, smoked 1 ppd. Past Drug Use History: None Reported - Past Family History Father Family Medical History: Coronary Artery Disease (CAD), CVA/TIA, GERD/Reflux, Hyperlipidemia, Hypertension Additional Family Medical History / Comment(s): STROKE AT AGE 50. Father of pnemonia at the age of 63 yrs. Mother Family Medical History: Cancer, CVA/TIA, GERD/Reflux, Hyperlipidemia Additional Family Medical History / Comment(s): Skin cancer. Medications and Allergies Home Medications Medication Instructions Recorded Confirmed Type ALPRAZolam [Xanax] 1 mg PO DAILY PRN 08/07/20 02/18/25 History rOPINIRole HCL [Requip] 2 mg PO HS 09/10/22 02/18/25 History Cyanocobalamin [Vitamin B-12 1,000 mcg SQ Q30D 10/12/23 02/18/25 History Injection] Ezetimibe [Zetia] 10 mg PO DAILY 10/12/23 02/18/25 History Sertraline [Zoloft] 150 mg PO DAILY 04/07/24 02/18/25 History lisinopriL [Zestril] 10 mg PO DAILY 04/07/24 02/18/25 History Pantoprazole [Protonix] 40 mg PO DAILY 05/19/24 02/18/25 History Apixaban [Eliquis] 5 mg PO BID tab 05/20/24 02/18/25 Rx cilostazoL [Pletal] 100 mg PO BID 30 Days #60 tab 05/27/24 02/18/25 Rx Rosuvastatin [Crestor] 10 mg PO DAILY 11/21/24 02/18/25 History Temazepam [Restoril] 30 mg PO HS 11/21/24 02/18/25 History traZODone HCL [Desyrel] 50 mg PO HS 11/21/24 02/18/25 History Dicyclomine [Bentyl] 10 mg PO TID 02/18/25 02/18/25 History estradioL [Estrace] 1 mg PO DAILY 02/18/25 02/18/25 History Allergies Allergy/AdvReac Type Severity Reaction Status Date / Time olanzapine [From Zyprexa] Allergy Unknown Verified 02/18/25 10:43 Physical Exam Vitals: Vital Signs Temp Pulse Pulse Resp BP BP Pulse Ox 02/18/25 17:23 97.8 F 63 16 129/71 99 02/18/25 17:00 98.0 F 62 19 118/62 99 02/18/25 16:00 98.4 F 60 22 130/63 98 02/18/25 15:04 65 18 120/65 98 02/18/25 15:00 65 18 122/73 99 02/18/25 14:00 65 20 114/53 97 02/18/25 13:00 67 20 130/58 96 02/18/25 12:30 69 19 130/58 97 02/18/25 12:00 64 17 109/56 96 02/18/25 11:30 63 20 110/59 97 02/18/25 11:00 66 20 95/61 96 02/18/25 10:40 69 21 139/98 97 02/18/25 09:50 98.5 F 62 22 132/75 95 Intake and Output 02/18/25 02/18/25 02/18/25 06:59 14:59 22:59 Other: Weight 71.668 kg 71.668 kg GENERAL: The patient is alert and oriented x3, not in any acute distress. Well developed, well nourished. HEENT: Pupils are round and equally reacting to light. EOMI. No scleral icterus. No conjunctival pallor. Normocephalic, atraumatic. No pharyngeal erythema. No thyromegaly. CARDIOVASCULAR: S1 and S2 present. No murmurs, rubs, or gallops. PULMONARY: Chest is clear to auscultation, no wheezing , no crackles. ABDOMEN: Soft, nontender, nondistended, normoactive bowel sounds. No palpable organomegaly. MUSCULOSKELETAL: No joint swelling or deformity. EXTREMITIES: No cyanosis, clubbing, or pedal edema. NEUROLOGICAL: Gross neurological examination did not reveal any focal deficits. SKIN: No rashes. no petechiae. Results CBC & Chem 7: 02/18/25 10:40 02/18/25 10:40 Labs: Abnormal Lab Results - Last 24 Hours (Table) 02/18/25 02/18/25 Range/Units 10:40 10:40 Plt Count 140 L (150-450) k/uL Lymphocytes # 0.8 L (1.0-4.8) k/uL Sodium 136 L (137-145) mmol/L Thrombosis Risk Factor Assmnt - Choose All That Apply Any of the Below Risk Factors Present?: No Other Risk Factors: Yes Each Risk Factor Represents 2 Points: Age 61-74 years Other congenital or acquired thrombophilia - If yes, enter type in comment: No Thrombosis Risk Factor Assessment Total Risk Factor Score: 2 Thrombosis Risk Factor Assessment Level: Low Risk Assessment and Plan Assessment: Chest pain, rule out cardiac causes Coronary artery disease History of C. difficile, patient reports current episodes of diarrhea Poor appetite, follow-up with Dr. Brunner for outpatient workup CVA/TIA Deep venous thrombosis History of GERD Hypertension Hyperlipidemia Plan: Cardiology consult Continue with aspirin If diarrhea persist will check C. difficile Check orthostatic vitals Patient with follow-up with her PCP Dr. Mahoney for her chronic problem. Patient has ongoing workup for poor appetite plus others Labs and medication were reviewed.. Continue same treatment. Continue with symptomatic treatment. Resume home medication. Monitor labs and vitals. DVT and GI prophylaxis. Further recommendations as per clinical course of the patient DVT prophylaxis: Subcutaneous heparin GI Prophylaxis: Pepcid PT/OT: Pending Prognosis is guarded
[2025-02-19] MEDS: ALPRAZolam 1 MG TAB PO PRN (00:23)
[2025-02-19] MEDS: ASPIRIN 325 MG TAB PO SCH (08:25)
[2025-02-19] MEDS: SERTRALINE 50 MG TAB PO SCH (08:25)
[2025-02-19] MEDS: ATORVASTATIN 20 MG TAB PO SCH (08:25)
[2025-02-19] MEDS: PANTOPRAZOLE 40 MG TABLET PO SCH (08:26)
[2025-02-19] MEDS: EZETIMIBE 10 MG TAB PO SCH (08:26)
[2025-02-19] MEDS: lisinopriL 10 MG TAB PO SCH (09:23)
[2025-02-19 09:42] LABS: Chol/HDL Ratio 1.88 Ratio; LDL Cholesterol,Calculated 52.9 mg/dL (0.0-131.0); VLDL Calculation 12.76 mg/dL (5.00-40.00)
--- NOTE | 2025-02-19 12:47 | P.CRDCN ---
History of Present Illness Consult date: 02/19/25 Consult reason: chest pain History of present illness: The patient is a 69-year-old female who follows in the office with Dr. Gil. Patient reports having new onset of chest discomfort and shortness of breath over the last 24 hours. Patient states she was given nitroglycerin when she first arrived in the emergency room, which did resolve her chest discomfort. She continues to have shortness of breath with exertional activity, such as gett ing up and ambulating to the bathroom. DIAGNOSTICS: EKG shows sinus rhythm with occasional PACs, no ST or T wave abnormalities X-ray shows no acute cardiopulmonary Lab data: WBC 4.0, hemoglobin 13.2, hematocrit 40.0, platelet 140, sodium 136, potassium 4.2, BUN 12, creatinine 0.99, magnesium 2.2, AST 33, ALT 25, troponins negative x 3, BNP 328, triglycerides 63, LDL 52, HDL 74 REVIEW OF SYSTEMS: No fever or chills. No cough or expectoration. No diaphoresis. Patient denies headache, dizziness, blurred vision, double vision. Patient denies any stomach discomfort. No nausea, vomiting. No hematochezia. No hematemesis. Denies any black stools or blood in his stools. Denies dysuria or hematuria. No muscle weakness or numbness. Positive for dyspnea. Negative for orthopnea. No current chest discomfort. PHYSICAL EXAMINATION: This is a 69-year-old female in no apparent distress at the time of my examination. HEENT: Head is atraumatic, normocephalic. Pupils are equal, round. Sclerae anicteric. Conjunctivae are clear. Mucous membranes of the mouth are moist. Neck is supple. There is no jugular venous distention. No carotid bruit is heard. CHEST EXAMINATION: Lungs are clear to auscultation. No chest wall tenderness is noted on palpation or with deep breathing. HEART EXAMINATION: Heart regular rate and rhythm. S1, S2 heard. No murmurs, gallops or rub. ABDOMEN: Soft, nontender. Bowel sounds are heard. No organomegaly noted. EXTREMITIES: 2+ peripheral pulses with no evidence of peripheral edema and no calf tenderness noted. NEUROLOGIC EXAMINATION: Patient is awake, alert and oriented x3. FINAL ASSESSMENT AND PLAN: Chest discomfort Hypertension History of carotid atherosclerosis, status post carotid enterectomy History of CVA/TIA History of DVT, on anticoagulation Hyperlipidemia PLAN: Resume home medication regimen including lisinopril, rosuvastatin, Eliquis, and Zetia N.p.o. after midnight Proceed with dobutamine stress echocardiogram tomorrow If no evidence of ischemia, outpatient follow-up with primary gill net stringer Dr. Gil in 1 to 2 weeks I am dictating on behalf of Dr Pahceco Levine's history/physical and assessment/plan. Past Medical History Past Medical History: Coronary Artery Disease (CAD), CVA/TIA, Deep Vein T hrombosis (DVT), GERD/Reflux, Hyperlipidemia, Hypertension, Myocardial Infarction ([place]), Pneumonia, Vascular Disorder Additional Past Medical History / Comment(s): Hx right lower extremity DVT 1996, peripheral vascular disease. Restless leg syndrome, adrenal gland mass. Hx CVA Aug 2022 - no residual effects. past hx. pneumonia 2 yrs. ago insomnia Last Myocardial Infarction Date:: 10/2014 History of Any Multi-Drug Resistant Organisms: C-DIFF, ESBL, MRSA Date of last positivie culture/infection: 2000 MDRO Source:: abdominal wound Past Surgical History: Appendectomy, Bariatric Surgery, Breast Surgery, Cholecystectomy, Heart Catheterization, Hysterectomy, Orthopedic Surgery Additional Past Surgical History / Comment(s): Gastric bypass and subsequent multiple surgeries d/t incision not healing properly and bowel was knicked, exploratory laparotomies, bilateral fem/pop bypass/stents, left wrist fracture with surgery/hardware, bilateral foot bunionectomies, left rotator cuff repair, left knee arthroscopy, left breast benign biopsy, EGD, colonoscopies/benign polypectomy, right collar bone surgery. Past Anesthesia/Blood Transfusion Reactions: No Reported Reaction Past Psychological History: Anxiety, Panic Disorder Additional Psychological History / Comment(s): Pt resides with her spouse. She states she has high anxiety. Pt uses no assistive device. She drives. Smoking Status: Former smoker Past Alcohol Use History: Occasional Additional Past Alcohol Use History / Comment(s): Started smoking in 1973 and quit in 2008, smoked 1 ppd. Past Drug Use History: None Reported - Past Family History Father Family Medical History: Coronary Artery Disease (CAD), CVA/TIA, GERD/Reflux, Hyp erlipidemia, Hypertension Additional Family Medical History / Comment(s): STROKE AT AGE 50. Father of pnemonia at the age of 63 yrs. Mother Family Medical History: Cancer, CVA/TIA, GERD/Reflux, Hyperlipidemia Additional Family Medical History / Comment(s): Skin cancer. Medications and Allergies Home Medications Medication Instructions Recorded Confirmed Type ALPRAZolam [Xanax] 1 mg PO DAILY PRN 08/07/20 02/18/25 History rOPINIRole HCL [Requip] 2 mg PO HS 09/10/22 02/18/25 History Cyanocobalamin [Vitamin B-12 1,000 mcg SQ Q30D 10/12/23 02/18/25 History Injection] Ezetimibe [Zetia] 10 mg PO DAILY 10/12/23 02/18/25 History Sertraline [Zoloft] 150 mg PO DAILY 04/07/24 02/18/25 History lisinopriL [Zestril] 10 mg PO DAILY 04/07/24 02/18/25 History Pantoprazole [Protonix] 40 mg PO DAILY 05/19/24 02/18/25 History Apixaban [Eliquis] 5 mg PO BID tab 05/20/24 02/18/25 Rx cilostazoL [Pletal] 100 mg PO BID 30 Days #60 tab 05/27/24 02/18/25 Rx Rosuvastatin [Crestor] 10 mg PO DAILY 11/21/24 02/18/25 History Temazepam [Restoril] 30 mg PO HS 11/21/24 02/18/25 History traZODone HCL [Desyrel] 50 mg PO HS 11/21/24 02/18/25 History Dicyclomine [Bentyl] 10 mg PO TID 02/18/25 02/18/25 History estradioL [Estrace] 1 mg PO DAILY 02/18/25 02/18/25 History Allergies Allergy/AdvReac Type Severity Reaction Status Date / Time olanzapine [From Zyprexa] Allergy Unknown Verified 02/18/25 10:43 Physical Exam Vitals: Vital Signs Temp Pulse Pulse Resp BP BP BP 02/19/25 09:14 109/64 02/19/25 07:27 97.7 F 67 18 98/60 02/19/25 01:16 98 F 56 L 17 100/54 02/18/25 20:23 60 124/71 02/18/25 19:43 97.6 F 60 16 02/18/25 18:51 97.9 F 70 17 142/58 02/18/25 17:23 97.8 F 63 16 129/71 02/18/25 17:00 98.0 F 62 19 118/62 02/18/25 16:00 98.4 F 60 22 130/63 02/18/25 15:04 65 18 120/65 02/18/25 15:00 65 18 122/73 02/18/25 14:00 65 20 114/53 02/18/25 13:00 67 20 130/58 BP BP Pulse Ox 02/19/25 09:14 02/19/25 07:27 99 02/19/25 01:16 96 02/18/25 20:23 109/62 119/63 02/18/25 19:43 98 02/18/25 18:51 94 L 02/18/25 17:23 99 02/18/25 17:00 99 02/18/25 16:00 98 02/18/25 15:04 98 02/18/25 15:00 99 02/18/25 14:00 97 02/18/25 13:00 96 Intake and Output 02/18/25 02/19/25 02/19/25 22:59 06:59 14:59 Intake Total 118 Balance 118 Intake: Oral 118 Other: # Voids 2 1 # Bowel Movements 1 Weight 71.668 kg Results 02/18/25 10:40 02/18/25 10:40 Cardiac Enzymes 02/18/25 02/18/25 Range/Units 14:03 17:47 Troponin I <0.012 <0.012 (0.000-0.034) ng/mL Lipids 02/18/25 Range/Units 10:40 Triglycerides 63.80 (0.00-149.00) mg/dL Cholesterol 140.00 (0.00-200.00) mg/dL HDL Cholesterol 74.30 H (40.00-60.00) mg/dL Cholesterol/HDL Ratio 1.88 Ratio Current Medications Generic Name Dose Route Start Last Admin Trade Name Freq PRN Reason Stop Dose Admin Alprazolam 1 mg 02/18/25 13:01 02/19/25 00:23 Alprazolam 1 Mg Tab PO 1 mg DAILY PRN Administration Anxiety Aspirin 325 mg 02/19/25 09:00 02/19/25 08:25 Aspirin 325 Mg Tab PO 325 mg DAILY VARUN Administration Atorvastatin Calcium 20 mg 02/19/25 09:00 02/19/25 08:25 Atorvastatin 20 Mg Tab PO 20 mg DAILY VARUN Administration Cilostazol 100 mg 02/18/25 21:00 02/19/25 08:26 Cilostazol 100 Mg Tab PO 100 mg BID VARUN Administration Cyanocobalamin 1,000 mcg 02/28/25 09:00 Cyanocobalamin 1,000 Mcg/Ml 1 Ml Vial SQ Q30D VARUN Dicyclomine HCl 10 mg 02/18/25 16:00 02/19/25 08:25 Dicyclomine 10 Mg Cap PO 10 mg TID VARUN Administration Ezetimibe 10 mg 02/19/25 09:00 02/19/25 08:26 Ezetimibe 10 Mg Tab PO 10 mg DAILY VARUN Administration Estradiol 1 mg 02/19/25 09:00 02/19/25 08:25 Estradiol 0.5 Mg Tab PO 1 mg DAILY VARUN Administration Lisinopril 10 mg 02/19/25 09:00 02/19/25 09:23 Lisinopril 10 Mg Tab PO Not Given DAILY [facility] Nitroglycerin 0.4 mg 02/18/25 13:00 02/18/25 15:02 Nitroglycerin Sl Tabs 0.4 Mg Tab SUBLINGUAL 0.4 mg Q5M PRN Administration Chest Pain Nitroglycerin 0.5 inch 02/18/25 18:00 02/19/25 11:14 Nitroglycerin Oint 1 Inch/Gm Packet TOPICAL Not Given Q6HR VARUN Pantoprazole Sodium 40 mg 02/19/25 09:00 02/19/25 08:26 Pantoprazole 40 Mg Tablet PO 40 mg DAILY VARUN Administration Ropinirole HCl 2 mg 02/18/25 21:00 02/18/25 21:44 Ropinirole Hcl 1 Mg Tab PO 2 mg HS VARUN Administration Sertraline HCl 150 mg 02/19/25 09:00 02/19/25 08:25 Sertraline 50 Mg Tab PO 150 mg DAILY VARUN Administration Temazepam 30 mg 02/18/25 21:00 02/18/25 21:44 Temazepam 15 Mg Cap PO 30 mg HS VARUN Administration Trazodone HCl 50 mg 02/18/25 21:00 02/18/25 21:45 Trazodone Hcl 50 Mg Tab PO 50 mg HS VARUN Administration Intake and Output 02/18/25 02/19/25 02/19/25 22:59 06:59 14:59 Intake Total 118 Balance 118 Intake: Oral 118 Other: # Voids 2 1 # Bowel Movements 1 Weight 71.668 kg 02/18/25 10:40 02/18/25 10:40
--- NOTE | 2025-02-19 19:00 | P.PN ---
Subjective This is a pleasant 69 years old female with past medical history of multiple medical problems. Presents because of chest pain that started this morning rated on admission as 9/10 currently about resolved. Associate with some shortness of breath. Chest pain mainly was central nonradiating completely resolved by nitro. Currently patient dyspnea improved as well with no coughing. No specific GI or symptoms. No difficulty ambulating. Patient reports some loose stool about 15 times. Patient also states decreased appetite. Patient states that she follow-up with Dr. Trivedi for workup for her loss of weight. Patient denies history of diabetes. Patient hemodynamically stable and afebrile, mildly tachypneic No significant labs abnormality. INR 1.0. Troponin negative D-dimer is negative at 0.19. Troponin less than 0.012. 02/19 pt feels comfortable , no more chest pain no other new complaint pt is evaluated by creative perfumer and recommended stress test tomorrow if negative they are going to clear for discharge pt other problem is diarrhea, however this is a chronic problem. Patient reports 7 bouts of bowel movement We checked orthostatic vitals and looks positive. although patient is symptomatic but her blood pressure was little bit on the low side, therefore we are going to give her a bolus of 500 cc of normal saline C. difficile test is negative. Will add Imodium Review of systems CONSTITUTIONAL: No fever, no malaise, no fatigue. HEENT: No recent visual problems or hearing problems. Denied any sore throat. CARDIOVASCULAR: No orthopnea, PND, no palpitations, HEMATOLOGICAL: Denies any bleeding or petechiae. GENITOURINARY: Denies any burning micturition, frequency, or urgency. MUSCULOSKELETAL/RHEUMATOLOGICAL: Denies any joint pain, swelling, or any muscle pain. ENDOCRINE: Denies any polyuria or polydipsia. Active Medications Generic Name Dose Route Start Last Admin Trade Name Freq PRN Reason Stop Dose Admin Alprazolam 1 mg 02/18/25 13:01 02/19/25 00:23 Alprazolam 1 Mg Tab PO 1 mg DAILY PRN Administration Anxiety Aspirin 81 mg 02/20/25 09:00 Aspirin 81 Mg PO DAILY VARUN Atorvastatin Calcium 20 mg 02/19/25 09:00 02/19/25 08:25 Atorvastatin 20 Mg Tab PO 20 mg DAILY VARUN Administration Cilostazol 100 mg 02/18/25 21:00 02/19/25 08:26 Cilostazol 100 Mg Tab PO 100 mg BID VARUN Administration Cyanocobalamin 1,000 mcg 02/28/25 09:00 Cyanocobalamin 1,000 Mcg/Ml 1 Ml Vial SQ Q30D VARUN Dicyclomine HCl 10 mg 02/18/25 16:00 02/19/25 16:45 Dicyclomine 10 Mg Cap PO 10 mg TID VARUN Administration Ezetimibe 10 mg 02/19/25 09:00 02/19/25 08:26 Ezetimibe 10 Mg Tab PO 10 mg DAILY VARUN Administration Estradiol 1 mg 02/19/25 09:00 02/19/25 08:25 Estradiol 0.5 Mg Tab PO 1 mg DAILY VARUN Administration Dobutamine HCl/Dextrose 500 mg 250 mls @ 21.5 mls/hr 02/20/25 05:00 / IV Solution IV 02/20/25 23:00 .[id number] PRN Per Protocol Protocol 10 MCG/KG/MIN Lisinopril 10 mg 02/19/25 09:00 02/19/25 09:23 Lisinopril 10 Mg Tab PO Not Given DAILY VARUN Nitroglycerin 0.4 mg 02/18/25 13:00 02/18/25 15:02 Nitroglycerin Sl Tabs 0.4 Mg Tab SUBLINGUAL 0.4 mg Q5M PRN Administration Chest Pain Nitroglycerin 0.5 inch 02/18/25 18:00 02/19/25 16:36 Nitroglycerin Oint 1 Inch/Gm Packet TOPICAL Not Given Q6HR VARUN Pantoprazole Sodium 40 mg 02/19/25 09:00 02/19/25 08:26 Pantoprazole 40 Mg Tablet PO 40 mg DAILY VARUN Administration Ropinirole HCl 2 mg 02/18/25 21:00 02/18/25 21:44 Ropinirole Hcl 1 Mg Tab PO 2 mg HS VARUN Administration Sertraline HCl 150 mg 02/19/25 09:00 02/19/25 08:25 Sertraline 50 Mg Tab PO 150 mg DAILY VARUN Administration Temazepam 30 mg 02/18/25 21:00 02/18/25 21:44 Temazepam 15 Mg Cap PO 30 mg HS VARUN Administration Trazodone HCl 50 mg 02/18/25 21:00 02/18/25 21:45 Trazodone Hcl 50 Mg Tab PO 50 mg HS VARUN Administration Objective - Vital Signs Vital signs: Vital Signs Temp 97.6 F 02/19/25 14:50 Pulse 68 02/19/25 14:50 Resp 17 02/19/25 14:50 BP 124/55 02/19/25 14:50 Pulse Ox 96 02/19/25 14:50 FiO2 Intake & Output 02/18/25 02/19/25 02/19/25 18:59 06:59 18:59 Intake Total 118 Balance 118 Weight 71.668 kg Intake: Oral 118 Other: # Voids 1 1 # Bowel Movements 1 - Exam GENERAL: The patient is alert and oriented x3, not in any acute distress. Well developed, well nourished. HEENT: Pupils are round and equally reacting to light. EOMI. No scleral icterus. No conjunctival pallor. Normocephalic, atraumatic. No pharyngeal erythema. No thyromegaly. CARDIOVASCULAR: S1 and S2 present. No murmurs, rubs, or gallops. PULMONARY: Chest is clear to auscultation, no wheezing , no crackles. ABDOMEN: Soft, nontender, nondistended, normoactive bowel sounds. No palpable organomegaly. MUSCULOSKELETAL: No joint swelling or deformity. EXTREMITIES: No cyanosis, clubbing, or pedal edema. NEUROLOGICAL: Gross neurological examination did not reveal any focal deficits. SKIN: No rashes. no petechiae. - Labs CBC & Chem 7: 02/18/25 10:40 02/18/25 10:40 Labs: Abnormal Lab Results - Last 24 Hours (Table) 02/18/25 Range/Units 10:40 HDL Cholesterol 74.30 H (40.00-60.00) mg/dL Assessment and Plan Assessment: Chest pain, rule out cardiac causes Coronary artery disease History of C. difficile, patient reports current episodes of diarrhea. C. difficile test is negative Asymptomatic orthostatic hypotension Poor appetite, follow-up with Dr. Brunner for outpatient workup CVA/TIA Deep venous thrombosis History of GERD Hypertension Hyperlipidemia Plan: Cardiology consult, recommend going for stress test tomorrow Continue with aspirin If diarrhea persist will check C. difficile which is negative Check orthostatic vitals which is positive we will give a bolus of 500 cc Patient with follow-up with her PCP Dr. Mahoney for her chronic problem. Patient has ongoing workup for poor appetite plus others Labs and medication were reviewed.. Continue same treatment. Continue with symptomatic treatment. Resume home medication. Monitor labs and vitals. DVT and GI prophylaxis. Further recommendations as per clinical course of the patient DVT prophylaxis: Subcutaneous heparin GI Prophylaxis: Pepcid PT/OT: Pending Prognosis is guarded
[2025-02-19] MEDS ORDERED: LOPERAMIDE 2 MG CAP PO PRN (19:25)
[2025-02-19] MEDS: SODIUM CHLORIDE 0.9% 500 ML 500 ML IV ONE (19:30)
[2025-02-19 20:00] VITALS: RESP 16
[2025-02-19] MEDS: SODIUM CHLORIDE 0.9% 1,000 ML IV SCH (20:13)
[2025-02-20] MEDS ORDERED: DOBUTamine DRIP for NUC MED 500 MG in DEXTROSE/WATER 1 250ML.BAG IV PRN (05:00)
[2025-02-20] MEDS: ASPIRIN 81 MG PO SCH (08:56)
--- NOTE | 2025-02-20 09:29 | P.PN ---
Subjective HISTORY OF PRESENT ILLNESS: This is a 69-year-old female who follows in the office with Dr. Gil. Patient presented to the hospital for chief complaint of chest pain. Patient is scheduled to undergo dobutamine stress echo this morning. Patient without complaints of chest pain or shortness of breath this morning. Vital signs are stable. PHYSICAL EXAM: VITAL SIGNS: Reviewed. GENERAL: Well-developed in no acute distress. NECK: Supple. No JVD or thyromegaly LUNGS: Respirations even and unlabored. Lungs essentially clear to auscultation bilaterally. HEART: Regular rate and rhythm. S1 and S2 heard. EXTREMITIES: Normal range of motion. No clubbing or cyanosis. Peripheral pulses intact. No lower extremity edema ASSESSMENT: Chest pain, troponin negative x 3 Hypertension History of carotid atherosclerosis status post carotid endarterectomy History of CVA/TIA Hyperlipidemia Severe mitral regurgitation, per CHRISTOPHER 2021 History of DVT, on anticoagulation PLAN: Obtain 2D echo to assess cardiac structure and function Continue current cardiac medications Patient to undergo dobutamine stress echo today If negative, resume Eliquis 5 mg twice a day If negative, patient may be discharged home from a cardiac standpoint Further recommendations pending patient course Nurse practitioner note has been reviewed by physician. Signing provider agrees with the documented findings, assessment, and plan of care documented by AIR POLLUTION AUDITOR as a scribe. Objective - Vital Signs Vital signs: Vital Signs Temp 97.8 F 02/20/25 07:00 Pulse 70 02/20/25 07:00 Resp 16 02/20/25 07:00 BP 124/56 02/20/25 07:00 Pulse Ox 94 L 02/20/25 07:00 FiO2 Intake & Output 02/19/25 02/20/25 02/20/25 18:59 06:59 18:59 Other: # Voids 1 2 - Labs CBC & Chem 7: 02/18/25 10:40 02/18/25 10:40 Labs: Abnormal Lab Results - Last 24 Hours (Table) 02/18/25 Range/Units 10:40 HDL Cholesterol 74.30 H (40.00-60.00) mg/dL
--- NOTE | 2025-02-20 11:41 | CA ---
Dobutamine Stress Echocardiogram Report Malini Canela Age: 69 Gender: F : 1955 Exam Date: 02/20/2025 10:36 Exam Location: [facility] Ordering Physician: Yaima Chong Referring Physician: [id number] Fajardo Retail Event Coordinator: Ana Laura Hanson RDCS Technologist: Ht (in): 64 Wt (lb): 158 Procedure CPT: Indication: chest discomfort ICD-9 Codes: Rhythm: Patient History: CHEST PAIN, DIFFICULTY IN BREATHING, HTN, PRIOR CVA, HYPERCHOLESTEROLEMIA, FAMILY HX OF HEART DISEASE, PRIOR MS Cardiac Medications: Medications in past 24 hours: Contrast: Total Dose (mL): Stress Results Protocol: Peak Dose (???g/kg/min): Duration (min:sec): Atropine:(mg) Target HR: 128 Double Product: Resting HR: 52 Resting BP: 123 / 54 Peak HR: 133 Peak BP: / 41 Max Predicted HR: 150 89 % Max Predicted HR Stress Summary: BP Response: Reason for Termination: Target HR Cardiac Symptoms: NO SYMPTOMS ECG Analysis Resting EKG: Normal sinus rhythm normal axis normal intervals Stress EKG: Patient was given intravenous dobutamine ordered. Of 12 minutes as per protocol achieving 89% of predicted maximal heart rate without chest pain or diagnostic ST segment depression Arrhythmia: Echo Analysis Base Echo Analysis: Normal left ventricular size wall motion and systolic function Low Echo Anaylsis: Normal hyperdynamic response Peak Echo Analysis: Normal hyperdynamic response Recovery Echo: Normal MEASUREMENTS (Male/Female) Normal Values CONCLUSIONS Negative dobutamine stress echo Dr. Theo Gil MD (Electronically Signed) Final Date: 20 February 2025 11:40
--- NOTE | 2025-02-20 11:43 | CA ---
Transthoracic Echo Report Name: Malini Canela Age: 69 Gender: F : 1955 Exam Date: 02/20/2025 11:09 Exam Location: [facility] Ht (in): 64 Wt (lb): 158 Ordering Physician: Karen Jordan Attending/Referring Phys: [id number], Nikki Federal Java Developer Ana Laura Hanson, WATSON Procedure CPT: Indications: LV function, CP, severe MR Cardiac Hx: Technical Quality: Good Contrast 1: Total Dose (mL): Contrast 2: Total Dose (mL): MEASUREMENTS (Male / Female) Normal Values 2D ECHO LV Diastolic Diameter PLAX 3.0 cm 4.2 - 5.9 / 3.9 - 5.3 cm LV Systolic Diameter PLAX 2.1 cm IVS Diastolic Thickness 1.0 cm 0.6 - 1.0 / 0.6 - 0.9 cm LVPW Diastolic Thickness 1.1 cm 0.6 - 1.0 / 0.6 - 0.9 cm LV Relative Wall Thickness 0.7 RV Internal Dim ED PLAX 2.9 cm LA Systolic Diameter LX 3.0 cm 3.0 - 4.0 / 2.7 - 3.8 cm LV Diastolic Volume MOD 4C 74.3 cm??? LV Systolic Volume MOD 4C 30.6 cm??? LV Ejection Fraction MOD 4C 58.8 % LV Cardiac Index MOD 4C 1876.3 cm???/min???m??? LV Diastolic Length 4C 7.7 cm LV Systolic Length 4C 5.8 cm LV Diastolic Volume MOD 2C 98.5 cm??? LV Systolic Volume MOD 2C 36.5 cm??? LV Ejection Fraction MOD 2C 63.0 % LV Cardiac Index MOD 2C 2663.4 cm???/min???m??? LV Diastolic Length 2C 7.9 cm LV Systolic Length 2C 6.0 cm M-MODE Aortic Root Diameter MM 2.9 cm DOPPLER AV Peak Velocity 156.0 cm/s AV Peak Gradient 9.7 mmHg Mitral E Point Velocity 84.8 cm/s Mitral A Point Velocity 91.8 cm/s Mitral E to A Ratio 0.9 MV Deceleration Time 269.6 ms TR Peak Velocity 161.9 cm/s TR Peak Gradient 10.5 mmHg Right Ventricular Systolic Press 24.6 mmHg FINDINGS Left Ventricle Left ventricular ejection fraction is estimated at 60-65 %. Mildly increased posterior wall thickness. Small left ventricular cavity. Normal left ventricular wall motion. Right Ventricle Normal right ventricular size and function. Right ventricular systolic pressure within normal limits. Small perimembranus VSD Right Atrium Normal right atrial size. No right atrial thrombus or mass seen. Left Atrium Normal left atrial size. No left atrial thrombus or mass present. Mitral Valve Structurally normal mitral valve. No mitral stenosis. No evidence for mitral valve prolapse. Mild mitral regurgitation. Aortic Valve Trileaflet aortic valve. Thickened aortic valve without stenosis. Tricuspid Valve Structurally normal tricuspid valve. Mild tricuspid regurgitation. Pulmonic Valve Structurally normal pulmonic valve. No pulmonic regurgitation. Pericardium No pericardial effusion. Aorta Normal size aortic root and proximal ascending aorta. CONCLUSIONS Normal LV function Mild mitral regurgitation Small perimembranous VSD Previewed by: Dr. Theo Gil MD (Electronically Signed) Final Date: 20 February 2025 11:42
[2025-02-20] MEDS: APIXABAN 5 MG TAB PO SCH (12:29)
[2025-02-20 14:11] VITALS: BP 118/57; PULSE 73; TEMP 97.7
[2025-02-20] MEDS: AMOXICILLIN 500 MG CAP PO SCH (15:55)
[2025-02-20] MEDS: CLARITHROMYCIN 500 MG TAB PO SCH (15:56)
[2025-02-20] MEDS ORDERED: PANTOPRAZOLE 40 MG TABLET PO SCH (17:30)
[2025-02-20] MEDS ORDERED: cilostazoL 100 MG TAB PO SCH (21:00)
--- NOTE | 2025-02-20 21:23 | P.CONS ---
History of Present Illness - Reason for Consult Consult date: 02/20/25 H. pylori infection Requesting physician: Robert E Sheet - Chief Complaint Chest pain x 1 day - History of Present Illness Patient is a 69-year-old female with a past medical history significant for coronary artery disease CVA TIA reflux hypertension hyperlipidem ia [place] in this patient who recently has been diagnosed with H. pylori infection by urea breath test by the PCP prescription sent to the pharmacy the patient has not started them yet and presenting to the [facility] 2 days ago for evaluation of chest pain patient was described the pain to be sharp moderate intense without radiation no significant shortness of breath or cough did have chronic epigastric area pain with nausea but no vomiting and denies high-grade fever on presentation to hospital the patient was afebrile no fever have recorded subsequently patient was not tachycardic hypotensive or hypoxic did have white count of 4.0 creatinine is 0.99 electrolytes are normal liver enzymes are normal patient did have a chest x-ray that was reported negative for acute cardiopulmonary disease process did have some cardiomegaly infectious he was consulted today for H. pylori treatment and concern for drug interaction Review of Systems Positive point and negatives has been mentioned in the HPI, complete review of systems was performed and all other systems are negative Past Medical History Past Medical History: Coronary Artery Disease (CAD), CVA/TIA, Deep Vein Thrombosis (DVT), GERD/Reflux, Hyperlipidemia, Hypertension, Myocardial Infarction ([place]), Pneumonia, Vascular Disorder Additional Past Medical History / Comment(s): Hx right lower extremity DVT 1996, peripheral vascular disease. Restless leg syndrome, adrenal gland mass. Hx CVA Aug 2022 - no residual effects. past hx. pneumonia 2 yrs. ago insomnia Last Myocardial Infarction Date:: 10/2014 History of Any Multi-Drug Resistant Organisms: C-DIFF, ESBL, MRSA Year Discovered:: 2000 MDRO Source:: abdominal wound Past Surgical History: Appendectomy, Bariatric Surgery, Breast Surgery, Cholecystectomy, Heart Catheterization, Hysterectomy, Orthopedic Surgery Additional Past Surgical History / Comment(s): Gastric bypass and subsequent multiple surgeries d/t incision not healing properly and bowel was knicked, exploratory laparotomies, bilateral fem/pop bypass/stents, left wrist fracture with surgery/hardware, bilateral foot bunionectomies, left rotator cuff repair, left knee arthroscopy, left breast benign biopsy, EGD, colonoscopies/benign polypectomy, right collar bone surgery. Past Anesthesia/Blood Transfusion Reactions: No Reported Reaction Past Psychological History: Anxiety, Panic Disorder Additional Psychological History / Comment(s): Pt resides with her spouse. She states she has high anxiety. Pt uses no assistive device. She drives. Smoking Status: Former smoker Past Alcohol Use History: Occasional Additional Past Alcohol Use History / Comment(s): Started smoking in 1973 and quit in 2008, smoked 1 ppd. Past Drug Use History: None Reported - Past Family History Father Family Medical History: Coronary Artery Disease (CAD), CVA/TIA, GERD/Reflux, Hyperlipidemia, Hypertension Additional Family Medical History / Comment(s): STROKE AT AGE 50. Father of pnemonia at the age of 63 yrs. Mother Family Medical History: Cancer, CVA/TIA, GERD/Reflux, Hyperlipidemia Additional Family Medical History / Comment(s): Skin cancer. Medications and Allergies Home Medications Medication Instructions Recorded Confirmed Type ALPRAZolam [Xanax] 1 mg PO DAILY PRN 08/07/20 02/18/25 History rOPINIRole HCL [Requip] 2 mg PO HS 09/10/22 02/18/25 History Cyanocobalamin [Vitamin B-12 1,000 mcg SQ Q30D 10/12/23 02/18/25 History Injection] Ezetimibe [Zetia] 10 mg PO DAILY 10/12/23 02/18/25 History Sertraline [Zoloft] 150 mg PO DAILY 04/07/24 02/18/25 History lisinopriL [Zestril] 10 mg PO DAILY 04/07/24 02/18/25 History Apixaban [Eliquis] 5 mg PO BID tab 05/20/24 02/18/25 Rx Rosuvastatin [Crestor] 10 mg PO DAILY 11/21/24 02/18/25 History Temazepam [Restoril] 30 mg PO HS 11/21/24 02/18/25 History Dicyclomine [Bentyl] 10 mg PO TID 02/18/25 02/18/25 History estradioL [Estrace] 1 mg PO DAILY 02/18/25 02/18/25 History ALPRAZolam [Xanax] 0.5 mg PO DAILY PRN tab 02/20/25 Rx Amoxicillin 1,000 mg PO BID #56 cap 02/20/25 Rx Clarithromycin [Biaxin] 500 mg PO BID #28 tab 02/20/25 Rx Pantoprazole [Protonix] 40 mg PO AC-BID #60 tab 02/20/25 Rx cilostazoL [Pletal] 50 mg PO BID 15 Days #30 tab 02/20/25 Rx Allergies Allergy/AdvReac Type Severity Reaction Status Date / Time olanzapine [From Zyprexa] Allergy Unknown Verified 02/18/25 10:43 Physical Exam Vitals: Vital Signs Temp Pulse Resp BP BP Pulse Ox 02/20/25 07:00 97.8 F 70 16 124/56 94 L 02/20/25 01:59 98.2 F 58 L 16 113/59 97 02/19/25 19:59 97.5 F L 69 16 151/71 98 02/19/25 14:50 97.6 F 68 17 124/55 96 02/19/25 13:00 97 Intake and Output 02/19/25 02/20/25 02/20/25 22:59 06:59 14:59 Other: # Voids 2 2 GENERAL DESCRIPTION: Elderly female up in the chair, no distress. No tachypnea or accessory muscle of respiration use. HEENT: Shows Pallor , no scleral icterus. Oral mucous membrane is dry. NECK: Trachea central, no thyromegaly. LUNGS: Unlabored breathing. Clear to auscultation anteriorly. No wheeze or crackle. HEART: S1, S2, regular rate and rhythm. No loud murmur ABDOMEN: Soft, no tenderness , \ EXTREMITIES: No edema of feet. SKIN: No rash, no masses palpable. NEUROLOGICAL: The patient is awake, alert, oriented x3, mood and affect normal. Results CBC & Chem 7: 02/18/25 10:40 02/18/25 10:40 Assessment and Plan (1) H. pylori infection Status: Acute Code(s): A04.8 - OTHER SPECIFIED BACTERIAL INTESTINAL INFECTIONS SNOMED Code(s): 166060154 Plan: 1patient with history of epigastric discomfort nausea chronic with outpatient testing positive for H. pylori infection for the patient has not yet started treatment, we will obtain a stool for H. pylori antigen to confirm the diagnosis, first-line treatment will be amoxicillin clarithromycin and PPI however there is some interaction with the clarithromycin and platel, this has been discussed with the pharmacist and recommended to cut back the dose of Platel to 50 mg twice a day while on the clarithromycin the other regimen with the bismuth salicylate has more interaction with the medication patient is on 2-we will recommend amoxicillin 1 g twice daily along with clarithromycin 500 mg twice daily and Protonix 40 twice daily x 2 weeks This plan has been discussed with admitting team Thank you for this consultation Dictation was produced using [employer] dictation software. please excuse any grammatical, word or spelling errors. Time with Patient: Greater than 30
--- NOTE | 2025-02-20 22:12 | P.DS ---
Providers Date of admission: 02/18/25 13:01 Attending physician: Robert Winters MD Consults: 02/20/25 09:19 Consult Physician Urgent Consulting Provider: Portillo Logan Consult Reason/Comments: h pylori infection Do you want consulting provider notified?: Yes Primary care physician: Kwame Mahoney [facility] Course: Diagnoses: Chest pain, cardiac causes ruled out H. pylori infection Coronary artery disease History of C. difficile, patient reports current episodes of diarrhea. C. difficile test is negative Asymptomatic orthostatic hypotension Poor appetite, follow-up with Dr. Brunner for outpatient workup CVA/TIA Deep venous thrombosis History of GERD Hypertension Hyperlipidemia Hospital course: This is a pleasant 69 years old female with past medical history of multiple medical problems. Presents because of chest pain that started this morning rated on admission as 9/10 currently about resolved. Associate with some shortness of breath. Chest pain. D-dimer was negative at 0.19. Today she had a negative stress test with optical goods drill operator who cleared her for discharge also her chest pain resolved Patient has chronic diarrhea that she follow-up with her PCP Dr. Mahoney for further recommendation and workup. C. difficile was checked was negative. Patient had asymptomatic postural hypotension, she was provided with some fluid and she feels better already. Blood pressure is stable and she is afebrile and tolerates diet well. Patient can be discharged home Today her PCP office called back patient recently had EGD and test came back positive for H. pylori infection and they recommend to start the patient on clarithromycin, amoxacillin and Prevacid. For this person infectious disease consult was placed who recommended to start the patient on clarithromycin amoxicillin and Protonix. I discussed the case with ID team because of the risk of drug-drug interaction he recommended to lower dose of Pletal and Xanax to have. As such the dose of cilostazol Pletal was lowered from 100 down to 50 mg and Xanax dose also recommended to be lowered, I talked to the patient myself about these recommendations and she agrees. Also I asked her to stop trazodone, she confirms to me she take it for sleep and she can hold it for the next 2 weeks till she finished her course of antibiotics Also I called the office of her PCP Dr. Mahoney, Dr. Zee was not available in the office I talked to her nurse practitioner Alicia, she kindly took message to check her this week with repeat EKG including the QTc interval and including checking blood test. Other than that patient she is doing fine she agrees to be discharged home. She denies any other new complaint. She looks relaxed and satisfied Patient was cleared for discharge by cardiology and infectious disease team Problems and management plan were discussed with the patient and he verbalized understanding and acceptance Patient was found stable and can be discharged home in guarded prognosis however he needs follow-up as an outpatient. Patient was instructed to follow up with PCP Dr. Mahoney within one week and patient agrees Patient was optical goods drill operator Dr. Larson. She agrees Physical exam Gen: patient is a AAOx3, no distress CVS: S1-S2, RRR, no murmur Lungs: B/L CTA, no wheezing Abdomen: soft, no distention, no tenderness, positive bowel sounds Extremity: no leg edema or induration Time spent more than 35 minutes Plan - Discharge Summary Discharge Rx Participant: No New Discharge Prescriptions: New Clarithromycin [Biaxin] 500 mg PO BID #28 tab Pantoprazole [Protonix] 40 mg PO AC-BID #60 tab Amoxicillin 1,000 mg PO BID #56 cap cilostazoL [Pletal] 50 mg PO BID 15 Days #30 tab ALPRAZolam [Xanax] 0.5 mg PO DAILY PRN tab PRN Reason: Anxiety Continue ALPRAZolam [Xanax] 1 mg PO DAILY PRN PRN Reason: Anxiety Ezetimibe [Zetia] 10 mg PO DAILY lisinopriL [Zestril] 10 mg PO DAILY Dicyclomine [Bentyl] 10 mg PO TID rOPINIRole HCL [Requip] 2 mg PO HS Cyanocobalamin [Vitamin B-12 Injection] 1,000 mcg SQ Q30D Sertraline [Zoloft] 150 mg PO DAILY Apixaban [Eliquis] 5 mg PO BID tab Temazepam [Restoril] 30 mg PO HS Rosuvastatin [Crestor] 10 mg PO DAILY estradioL [Estrace] 1 mg PO DAILY Discontinued Pantoprazole [Protonix] 40 mg PO DAILY cilostazoL [Pletal] 100 mg PO BID 30 Days #60 tab traZODone HCL [Desyrel] 50 mg PO HS Discharge Medication List ALPRAZolam [Xanax] 1 mg PO DAILY PRN 08/07/20 [History] rOPINIRole HCL [Requip] 2 mg PO HS 09/10/22 [History] Cyanocobalamin [Vitamin B-12 Injection] 1,000 mcg SQ Q30D 10/12/23 [History] Ezetimibe [Zetia] 10 mg PO DAILY 10/12/23 [History] Sertraline [Zoloft] 150 mg PO DAILY 04/07/24 [History] lisinopriL [Zestril] 10 mg PO DAILY 04/07/24 [History] Apixaban [Eliquis] 5 mg PO BID tab 05/20/24 [Rx] Rosuvastatin [Crestor] 10 mg PO DAILY 11/21/24 [History] Temazepam [Restoril] 30 mg PO HS 11/21/24 [History] Dicyclomine [Bentyl] 10 mg PO TID 02/18/25 [History] estradioL [Estrace] 1 mg PO DAILY 02/18/25 [History] ALPRAZolam [Xanax] 0.5 mg PO DAILY PRN tab 02/20/25 [Rx] Amoxicillin 1,000 mg PO BID #56 cap 02/20/25 [Rx] Clarithromycin [Biaxin] 500 mg PO BID #28 tab 02/20/25 [Rx] Pantoprazole [Protonix] 40 mg PO AC-BID #60 tab 02/20/25 [Rx] cilostazoL [Pletal] 50 mg PO BID 15 Days #30 tab 02/20/25 [Rx] Follow up Appointment(s)/Referral(s): Kwame Mahoney DO [Primary Care Provider] - 1-2 days Theo Gil MD [STAFF PHYSICIAN] - 03/01/25 4:15 pm Activity/Diet/Wound Care/Special Instructions: heart healthy diet activity is restricted till you see your doctor While you are taking clarithromycin for her H. pylori infection x 2 weeks we recommend to discontinue trazodone, to cut down Pletal 100 mg down to 50 mg twice daily and to cut down Xanax 1 mg down to 0.5 mg twice daily. As the levels of this medication will be higher while you are taking your antibiotics and if you do not cut down Xanax or Pletal there will be risks including but not limited to respiratory depression, cardiac arrhythmia and/or Discharge Disposition: HOME SELF-CARE
[2025-02-28] MEDS ORDERED: CYANOCOBALAMIN 1,000 MCG/ML 1 ML VIAL SQ SCH (09:00)
== END 2025-02-20 17:12 | disposition home or self-care (01) ==
LOC: EC 09:49 → 6NMEDSUR 13:01
PROVIDERS: ADMIT Internal Medicine; ATTEND Internal Medicine
DX: R07.89 Other chest pain (principal); A04.8 Other specified bacterial intestinal infections; K52.9 Noninfective gastroenteritis and colitis, unspecified; E78.5 Hyperlipidemia, unspecified; K21.9 Gastro-esophageal reflux disease without esophagitis; F41.0 Panic disorder [episodic paroxysmal anxiety]; G25.81 Restless legs syndrome; I10 Essential (primary) hypertension; I25.10 Atherosclerotic heart disease of native coronary artery without angina pectoris; I25.2 Old myocardial infarction; I34.0 Nonrheumatic mitral (valve) insufficiency; I73.9 Peripheral vascular disease, unspecified; I95.1 Orthostatic hypotension; Z79.01 Long term (current) use of anticoagulants; Z79.02 Long term (current) use of antithrombotics/antiplatelets; Z79.890 Hormone replacement therapy; Z79.899 Other long term (current) drug therapy; Z86.718 Personal history of other venous thrombosis and embolism; Z86.73 Personal history of transient ischemic attack (TIA), and cerebral infarction without residual deficits; Z87.891 Personal history of nicotine dependence; Z98.84 Bariatric surgery status; Z88.8 Allergy status to other drugs, medicaments and biological substances
CPT/HCPCS: 99285; 36415; 93005; 93306; 93351; 87338; 85379; 83880; 80061; 80053; 82150; 83690; 83735; 84484; 85025; 85610; 85730; 87324; 71046; G0378 ×3

== ENCOUNTER 2025-04-25 12:26 | Emergency (ER) | payer MEDICARE ==
--- NOTE | 2025-04-25 12:48 | ED ---
Abdominal Pain HPI - General Chief Complaint: Abdominal Pain Stated Complaint: Abd pain Time Seen by Provider: 04/25/25 12:41 Source: patient, RN notes reviewed Mode of arrival: ambulatory Limitations: no limitations - History of Present Illness Initial Comments: This is a 69-year-old female with history including CAD, AMI, CVA and numerous abdominal surgeries presenting for abdominal pain for the past several weeks. Patient states it feels like her "insides are going to fall out" with associated lower abdominal pressure/distention and pain with wiping. Patient states symptoms have worsened today with feeling of everything "hanging out" patient states pressure/sensation does not change with position, noting sensation persists even when supine. Endorses bowel movement with every time she urinates which has been more frequent. Endorses both urine and bowel incontinence for the past several months. Also notes increased unplanned weight loss of 50 pounds in the past 5 months and night sweats for the past 4 days. Patient denies smoking history, cough or hemoptysis. Denies fever, chills, fatigue, chest pain, dyspnea, N/V/D, hematochezia, melena, dysuria, hematuria, vaginal bleeding/discharge. MD Complaint: abdominal pain Onset/Timin -: week(s) Location: LLQ, RLQ Radiation: none Migration to: no migration Quality: fullness Consistency: constant Improves With: nothing Worsens With: nothing Associated Symptoms: other (Frequency of urination, unplanned weight loss, night sweats) - Related Data Home Medications Medication Instructions Recorded Confirmed ALPRAZolam [Xanax] 1 mg PO DAILY PRN 08/07/20 02/18/25 rOPINIRole HCL [Requip] 2 mg PO HS 09/10/22 02/18/25 Cyanocobalamin [Vitamin B-12 1,000 mcg SQ Q30D 10/12/23 02/18/25 Injection] Ezetimibe [Zetia] 10 mg PO DAILY 10/12/23 02/18/25 Sertraline [Zoloft] 150 mg PO DAILY 04/07/24 02/18/25 lisinopriL [Zestril] 10 mg PO DAILY 04/07/24 02/18/25 Rosuvastatin [Crestor] 10 mg PO DAILY 11/21/24 02/18/25 Temazepam [Restoril] 30 mg PO HS 11/21/24 02/18/25 Dicyclomine [Bentyl] 10 mg PO TID 02/18/25 02/18/25 estradioL [Estrace] 1 mg PO DAILY 02/18/25 02/18/25 Previous Rx's Medication Instructions Recorded Apixaban [Eliquis] 5 mg PO BID tab 05/20/24 ALPRAZolam [Xanax] 0.5 mg PO DAILY PRN tab 02/20/25 Amoxicillin 1,000 mg PO BID #56 cap 02/20/25 Clarithromycin [Biaxin] 500 mg PO BID #28 tab 02/20/25 Pantoprazole [Protonix] 40 mg PO AC-BID #60 tab 02/20/25 cilostazoL [Pletal] 50 mg PO BID 15 Days #30 tab 02/20/25 Allergies Allergy/AdvReac Type Severity Reaction Status Date / Time olanzapine [From Zyprexa] Allergy Unknown Verified 04/25/25 12:29 Review of Systems ROS Statement: Those systems with pertinent positive or pertinent negative responses have been documented in the HPI. ROS Other: All systems not noted in ROS Statement are negative. Past Medical History Past Medical History: Coronary Artery Disease (CAD), CVA/TIA, Deep Vein Thrombosis (DVT), GERD/Reflux, Hyperlipidemia, Hypertension, Myocardial Infarction ([place]), Pneumonia, Vascular Disorder Additional Past Medical History / Comment(s): Hx right lower extremity DVT 1996, peripheral vascular disease. Restless leg syndrome, adrenal gland mass. Hx CVA Aug 2022 - no residual effects. past hx. pneumonia 2 yrs. ago insomnia Last Myocardial Infarction Date:: 10/2014 History of Any Multi-Drug Resistant Organisms: C-DIFF, ESBL, MRSA Date of last positivie culture/infection: 2000 MDRO Source:: abdominal wound Past Surgical History: Appendectomy, Bariatric Surgery, Breast Surgery, Cholecystectomy, Heart Catheterization, Hysterectomy, Orthopedic Surgery Additional Past Surgical History / Comment(s): Gastric bypass and subsequent multiple surgeries d/t incision not healing properly and bowel was knicked, exp loratory laparotomies, bilateral fem/pop bypass/stents, left wrist fracture with surgery/hardware, bilateral foot bunionectomies, left rotator cuff repair, left knee arthroscopy, left breast benign biopsy, EGD, colonoscopies/benign polypectomy, right collar bone surgery. Past Anesthesia/Blood Transfusion Reactions: No Reported Reaction Past Psychological History: Anxiety, Panic Disorder Smoking Status: Former smoker Past Alcohol Use History: Occasional Past Drug Use History: None Reported - Past Family History Father Family Medical History: Coronary Artery Disease (CAD), CVA/TIA, GERD/Reflux, Hyperlipidemia, Hypertension Additional Family Medical History / Comment(s): STROKE AT AGE 50. Father of pnemonia at the age of 63 yrs. Mother Family Medical History: Cancer, CVA/TIA, GERD/Reflux, Hyperlipidemia Additional Family Medical History / Comment(s): Skin cancer. General Exam Limitations: no limitations General appearance: alert, in no apparent distress Head exam: Present: atraumatic, normocephalic, normal inspection Eye exam: Present: normal appearance, PERRL, EOMI. Absent: scleral icterus, conjunctival injection, periorbital swelling ENT exam: Present: normal exam, mucous membranes moist Neck exam: Present: normal inspection. Absent: tenderness, meningismus, lymphadenopathy Respiratory exam: Present: normal lung sounds bilaterally. Absent: respiratory distress, wheezes, rales, rhonchi, stridor, accessory muscle use, decreased breath sounds, prolonged expiratory Cardiovascular Exam: Present: regular rate, normal rhythm, normal heart sounds. Absent: systolic murmur, diastolic murmur, rubs, gallop, clicks GI/Abdominal exam: Present: soft, tenderness (Positive diffuse lower abdominal tenderness especially in right adnexal region), guarding (Lower abdominal involu ntary guarding), hyperactive bowel sounds. Absent: distended, rebound, rigid, mass, hernia Rectal exam: Present: normal inspection, normal rectal tone. Absent: fecal impaction, hemorrhoids, mass, tenderness External exam: Present: normal external exam. Absent: erythema, swelling, lesions, lacerations, ecchymosis, other Speculum exam: Present: normal speculum exam. Absent: erythema, vaginal discharge, cervical discharge, vaginal bleeding, foreign body, tissue, laceration Extremities exam: Present: normal inspection, full ROM, normal capillary refill. Absent: tenderness, pedal edema, joint swelling, calf tenderness Back exam: Present: normal inspection Neurological exam: Present: alert, oriented X3, CN II-XII intact Psychiatric exam: Present: normal affect, normal mood Skin exam: Present: warm, dry, intact, normal color. Absent: rash Course Vital Signs 0504/25/25 04/25/25 12:30 15:51 17:51 Temperature 98.8 F 97.7 F Pulse Rate 72 57 L 60 Respiratory 20 16 16 Rate Blood Pressure 181/76 123/66 142/65 O2 Sat by Pulse 100 95 98 Oximetry Medical Decision Making - Medical Decision Making Was pt. sent in by a medical professional or institution (, PA, WOOD DIE MAKER, urgent care, hospital, or intermediate...) When possible be specific @ -No Did you speak to anyone other than the patient for history (EMS, parent, family, police, friend...)? What history was obtained from this source @ -No Did you review nursing and triage notes (agree or disagree)? Why? @ -I reviewed and agree with nursing and triage notes Were old charts reviewed (outside hosp., previous admission, EMS record, old EKG, old radiological studies, urgent care reports/EKG's, intermediate records)? Report findings @ -No old charts were reviewed Differential Diagnosis (chest pain, altered mental status, abdominal pain women, abdominal pain men, vaginal bleeding, weakness, fever, dyspnea, syncope, headache, dizziness, GI bleed, back pain, seizure, CVA, palpatations, mental health, musculoskeletal)? @ -Differential Abdominal Pain Women: Appendicitis, Cholecystitis, diverticulosis, ischemic bowel, pancreatitis, hepatitis, UTI, gastroenteritis, AAA, incarcerated hernia, bowel obstruction, constipation, inflammatory bowel, hepatitis, peptic ulcer disease, splenic infarction, perforated viscus, vulvitis, ovarian torsion, PID, kidney stone, placenta abruption, this is not meant to be an all-inclusive list EKG interpreted by me (3pts min.). @ -Not done X-rays interpreted by me (1pt min.). @ -None done CT interpreted by me (1pt min.). @ -AP CT shows fluid-filled sac in the gallbladder fossa with markedly dilated extrahepatic bile duct with no other acute changes in the abdomen/pelvis. U/S interpreted by me (1pt. min.). @ -Gallbladder ultrasound shows a fluid-filled structure in the right upper quadrant reflecting residual gallbladder or seroma with hepatic steatosis also noted. CBD proportions appear WNL. What testing was considered but not performed or refused? (CT, X-rays, U/S, labs)? Why? @ -None What meds were considered but not given or refused? Why? @ -None Did you discuss the management of the patient with other professionals (professionals i.e. , PA, WOOD DIE MAKER, lab, RT, psych nurse, social media job titles, field crop harvest worker, teacher, commercial loan collection officer, case liner)? Give summary @ -No Was smoking cessation discussed for >3mins.? @ -No Was critical care preformed (if so, how long)? @ -No Were there social determinants of health that impacted care today? How? (Homelessness, low income, unemployed, alcoholism, drug addiction, transpor tation, low edu. Level, literacy, decrease access to med. care, [facility], rehab)? @ -No Was there de-escalation of care discussed even if they declined (Discuss DNR or withdrawal of care, Hospice)? DNR status @ -No What co-morbidities impacted this encounter? (DM, HTN, Smoking, COPD, CAD, Cancer, CVA, ARF, Chemo, Hep., AIDS, mental health diagnosis, sleep apnea, morbid obesity)? @ -None Was patient admitted / discharged? Hospital course, mention meds given and route, prescriptions, significant lab abnormalities, going to OR and other pertinent info. @ -Patient initially provided IV normal saline. Lab work shows mildly elevated amylase 120 and lipase 363. UA unremarkable. AP CT shows fluid-filled sac in the gallbladder fossa with markedly dilated extrahepatic bile duct with no other acute changes in the abdomen/pelvis. Gallbladder ultrasound shows a fluid- filled structure in the right upper quadrant reflecting residual gallbladder or seroma with hepatic steatosis also noted. CBD proportions appear WNL. Advised patient to follow-up with PCP for ongoing evaluation and workup. Discussed patient with Dr. Frias. Undiagnosed new problem with uncertain prognosis? @ -No Drug Therapy requiring intensive monitoring for toxicity (Heparin, Nitro, Insulin, Cardizem)? @ -No Were any procedures done? @ -No Diagnosis/symptom? @ -Abdominal pain Acute, or Chronic, or Acute on Chronic? @ -Acute Uncomplicated (without systemic symptoms) or Complicated (systemic symptoms)? @ -Complicated Side effects of treatment? @ -No Exacerbation, Progression, or Severe Exacerbation? @ -No Poses a threat to life or bodily function? How? (Chest pain, [place], [place], pneumonia, PE, COPD, DKA, ARF, appy, cholecystitis, CVA, Diverticulitis, Homicidal, Suicidal, threat to staff... and all critical care pts) @ -No - Lab Data Result diagrams: 04/25/25 13:05 04/25/25 13:05 Lab Results 04/25/25 04/25/25 04/25/25 Range/Units 13:05 13:05 13:05 WBC 3.64 L (4.50-10.00) 10*3/uL RBC 4.18 (4.10-5.20) 10*6/uL Hgb 12.6 (12.0-15.0) g/dL Hct 36.5 L (37.2-46.3) % MCV 87.3 (80.0-97.0) fL MCH 30.1 (27.0-32.0) pg MCHC 34.5 (32.0-37.0) g/dL Plt Count 109 L (140-440) 10*3/uL MPV 10.6 (9.5-12.2) fL Immature Gran % (Auto) 0.3 % Neutrophils % 64.2 % Lymphocytes % 28.0 % Monocytes % 5.8 % Eosinophils % 1.4 % Basophils % 0.3 % Immature Gran # 0.01 (0.00-0.04) 10*3/uL Neutrophils # 2.34 (1.80-7.70) 10*3/uL Lymphocytes # 1.02 (0.90-5.00) 10*3/uL Monocytes # 0.21 (0.20-1.00) 10*3/uL Eosinophils # 0.05 (0.04-0.35) 10*3/uL Basophils # 0.01 (0.00-0.10) 10*3/uL Sodium 136 L (137-145) mmol/L Potassium 4.0 (3.5-5.1) mmol/L Chloride 104 (98-107) mmol/L Carbon Dioxide 24 (22-30) mmol/L Anion Gap 8 mmol/L BUN 11 (7-17) mg/dL Creatinine 0.91 (0.52-1.04) mg/dL Est GFR (CKD-EPI)AfAm 74 (>60 ml/min/1.73 sqM) Est GFR (CKD-EPI)NonAf 64 (>60 ml/min/1.73 sqM) Glucose 96 (74-99) mg/dL Plasma Lactic Acid Cristobal (0.7-2.0) mmol/L Calcium 9.4 (8.4-10.2) mg/dL Total Bilirubin 0.5 (0.2-1.3) mg/dL AST 29 (14-36) U/L ALT 20 (4-34) U/L Alkaline Phosphatase 81 (38-126) U/L Total Protein 6.4 (6.3-8.2) g/dL Albumin 4.1 (3.5-5.0) g/dL Amylase 120 H (30-110) U/L Lipase 363 H (23-300) U/L Urine Color Colorless Urine Appearance Clear (Clear) Urine pH 5.0 (5.0-8.0) Ur Specific [place] 1.003 (1.001-1.035) Urine Protein Negative (Negative) Urine Glucose (UA) Negative (Negative) Urine Ketones Negative (Negative) Urine Blood Negative (Negative) Urine Nitrite Negative (Negative) Urine Bilirubin Negative (Negative) Urine Urobilinogen <2.0 (<2.0) mg/dL Ur Leukocyte Esterase Trace H (Negative) Urine RBC <1 (0-5) /hpf Urine WBC 4 (0-5) /hpf Ur Squamous Epith Cells 1 (0-4) /hpf Urine Bacteria Occasional H (None) /hpf Urine Mucus Rare H (None) /hpf 05//25 Range/Units 13:05 WBC (4.50-10.00) 10*3/uL RBC (4.10-5.20) 10*6/uL Hgb (12.0-15.0) g/dL Hct (37.2-46.3) % MCV (80.0-97.0) fL MCH (27.0-32.0) pg MCHC (32.0-37.0) g/dL Plt Count (140-440) 10*3/uL MPV (9.5-12.2) fL Immature Gran % (Auto) % Neutrophils % % Lymphocytes % % Monocytes % % Eosinophils % % Basophils % % Immature Gran # (0.00-0.04) 10*3/uL Neutrophils # (1.80-7.70) 10*3/uL Lymphocytes # (0.90-5.00) 10*3/uL Monocytes # (0.20-1.00) 10*3/uL Eosinophils # (0.04-0.35) 10*3/uL Basophils # (0.00-0.10) 10*3/uL Sodium (137-145) mmol/L Potassium (3.5-5.1) mmol/L Chloride (98-107) mmol/L Carbon Dioxide (22-30) mmol/L Anion Gap mmol/L BUN (7-17) mg/dL Creatinine (0.52-1.04) mg/dL Est GFR (CKD-EPI)AfAm (>60 ml/min/1.73 sqM) Est GFR (CKD-EPI)NonAf (>60 ml/min/1.73 sqM) Glucose (74-99) mg/dL Plasma Lactic Acid Cristobal 1.1 (0.7-2.0) mmol/L Calcium (8.4-10.2) mg/dL Total Bilirubin (0.2-1.3) mg/dL AST (14-36) U/L ALT (4-34) U/L Alkaline Phosphatase (38-126) U/L Total Protein (6.3-8.2) g/dL Albumin (3.5-5.0) g/dL Amylase (30-110) U/L Lipase (23-300) U/L Urine Color Urine Appearance (Clear) Urine pH (5.0-8.0) Ur Specific [place] (1.001-1.035) Urine Protein (Negative) Urine Glucose (UA) (Negative) Urine Ketones (Negative) Urine Blood (Negative) Urine Nitrite (Negative) Urine Bilirubin (Negative) Urine Urobilinogen (<2.0) mg/dL Ur Leukocyte Esterase (Negative) Urine RBC (0-5) /hpf Urine WBC (0-5) /hpf Ur Squamous Epith Cells (0-4) /hpf Urine Bacteria (None) /hpf Urine Mucus (None) /hpf Disposition Clinical Impression: Abdominal pain Disposition: HOME SELF-CARE Condition: Fair Instructions (If sedation given, give patient instructions): Abdominal Pain (ED) Additional Instructions: Alternate Tylenol/Motrin every 4 hours for pain. Follow-up with PCP/gastroenterology for ongoing management and evaluation of current symptoms. Is patient prescribed a controlled substance at d/c from ED?: No Referrals: Nick Ashford MD [Primary Care Provider] - 1-2 days Juany Gil MD [STAFF PHYSICIAN] - 1-2 days Time of Disposition: 17:22
[2025-04-25 13:14] LABS: Basophils # (A) 0.01 10*3/uL (0.00-0.10); Basophils % (A) 0.3 %; Eosinophils # (A) 0.05 10*3/uL (0.04-0.35); Eosinophils % (A) 1.4 %; HCT 36.5 % (37.2-46.3); HGB 12.6 g/dL (12.0-15.0); Lymphocytes # (A) 1.02 10*3/uL (0.90-5.00); MCH 30.1 pg (27.0-32.0); MCHC 34.5 g/dL (32.0-37.0); MCV 87.3 fL (80.0-97.0); Mean Platelet Volume 10.6 fL (9.5-12.2); Monocytes # (A) 0.21 10*3/uL (0.20-1.00); Monocytes % (A) 5.8 %; Neutrophils # (A) 2.34 10*3/uL (1.80-7.70); Neutrophils % (A) 64.2 %; Platelet Count 109 10*3/uL (140-440); RBC 4.18 10*6/uL (4.10-5.20); RDW 12.8 % (11.5-14.5); WBC 3.64 10*3/uL (4.50-10.00)
[2025-04-25 13:31] LABS: Appearance,Urine Clear (Clear); Bacteria,Urine Occasional /hpf; Bilirubin,Urine Negative (Negative); Blood,Urine Negative (Negative); Color,Urine Colorless; Glucose,Urine (UA) Negative (Negative); Ketones,Urine Negative (Negative); Leukocyte Esterase,Urine Trace (Negative); Mucus,Urine Rare /hpf; Nitrite,Urine Negative (Negative); Protein,Urine Negative (Negative); RBC,Urine <1 /hpf (0-5); Specific Gravity,Urine 1.003 (1.001-1.035); Squamous Epithelial Cell,Urine 1 /hpf (0-4); Urobilinogen,Urine <2.0 mg/dL (<2.0); WBC,Urine 4 /hpf (0-5)
[2025-04-25 13:36] LABS: ALT 20 U/L (4-34); AST 29 U/L (14-36); African American GFR (CKD) 74 (>60 ml/min/1.73 sqM); Albumin 4.1 g/dL (3.5-5.0); Alkaline Phosphatase 81 U/L (38-126); Amylase 120 U/L (30-110); Anion Gap 8 mmol/L; Blood Urea Nitrogen 11 mg/dL (7-17); Calcium 9.4 mg/dL (8.4-10.2); Carbon Dioxide 24 mmol/L (22-30); Chloride 104 mmol/L (98-107); Glucose 96 mg/dL (74-99); Lipase 363 U/L (23-300); Non-African American GFR(CKD) 64 (>60 ml/min/1.73 sqM); Sodium 136 mmol/L (137-145); Total Bilirubin 0.5 mg/dL (0.2-1.3); Total Protein 6.4 g/dL (6.3-8.2)
--- NOTE | 2025-04-25 15:25 | CT ---
EXAMINATION TYPE: CT abdomen pelvis w con DATE OF EXAM: 04/25/2025 COMPARISON: 10/12/2023 CLINICAL INDICATION: Female, 69 years old with history of lower abdominal pain/TTP; PHH, low abd pain TECHNIQUE: Performed without Oral Contrast and with IV Contrast, patient injected with 100 ml mL of Isovue 300. CT DLP: 817.[address] CTDI: mGy Automated exposure control for dose reduction was used. FINDINGS: There are postsurgical changes of a Azeb-en-Y procedure. There are clips in the region of the gallbla dder fossa but there is a fluid filled mass in the region of the gallbladder fossa region and questio n residual gallbladder with multiple gallstones are markedly dilated extrahepatic bile duct. There is no focal mass or organomegaly involving liver, pancreas, spleen or adrenal glands There is no solid renal mass or hydronephrosis. The caliber of the abdominal aorta is normal. Bowel loops are normal in caliber and there is no evidence of obstruction. There is no free intraperitoneal air or fluid. There is no pelvic mass or adenopathy. There is surgical absence of uterus. There are no focal osseous lesions. IMPRESSION: 1. Postsurgical changes of Azeb-en-Y procedure and cholecystectomy. 2. Fluid-filled sac in the gallbladder fossa consistent with residual gallbladder are markedly dilate d extrahepatic bile duct 3. No acute changes within the abdomen or pelvis [facility], , 04/25/2025 3:22 PM
[2025-04-25] MEDS: SODIUM CHLORIDE 0.9% 1,000 ML IV STA (15:44)
[2025-04-25 15:52] VITALS: RESP 16
--- NOTE | 2025-04-25 16:58 | US ---
EXAMINATION TYPE: US gallbladder DATE OF EXAM: 04/25/2025 COMPARISON: CT same day 04/25/2025 CLINICAL INDICATION: Female, 69 years old with history of Bile duct dilation, elevated pancreatic enz ymes; Hx gastric bypass Azeb-en-Y procedure. Bile duct dilation and elevated pancreatic enzymes per o rder. TECHNIQUE: Grayscale and color Doppler imaging of the right upper quadrant. FINDINGS: EXAM MEASUREMENTS: Liver Length: 13.8 cm Gallbladder Wall: Question residual GB versus other CBD: 0.6 cm, color Doppler imaging was utilized to isolate the common bile duct for measurement. Right Kidney: 9.5 x 5.7 x 4.6 cm VP OF TECHNOLOGY NOTES: Exam is limited due to gas Pancreas: Portion of body not seen, tail was obscured Liver: Appears coarse and heterogeneous *Hyperechoic area seen within the right lobe: 1.5 x 1.7 x 1.0 cm. Gallbladder: Hx cholecystectomy, possible residual gallbladder per CT report - Anechoic area with in ternal hyperechoic 7 mm foci seen within the RUQ: 3.3 x 3.4 x 2.7 cm. Question residual GB versus oth er? Evidence for sonographic Garber's sign: No CBD: Portions seen appear wnl Right Kidney: No hydronephrosis or masses seen IMPRESSION: 1. Fluid-filled structure right upper quadrant with a reported history of cholecystectomy. Reflect re sidual gallbladder or seroma. 2. Hepatic steatosis [facility], , 04/25/2025 4:55 PM
[2025-04-25 17:52] VITALS: BP 142/65; PULSE 60; TEMP 97.7
== END 2025-04-25 17:52 | disposition home or self-care (01) ==
LOC: EC 12:26
DX: R10.31 Right lower quadrant pain (principal); R10.32 Left lower quadrant pain; I25.10 Atherosclerotic heart disease of native coronary artery without angina pectoris; Z86.73 Personal history of transient ischemic attack (TIA), and cerebral infarction without residual deficits; Z87.891 Personal history of nicotine dependence; Z88.8 Allergy status to other drugs, medicaments and biological substances
CPT/HCPCS: 99284 ×2; 96360 ×2; 36415; 80053; 82150; 83605; 83690; 85025; 81001; 76705; 74177; Q9967